=== PATIENT | male | born 1955 | race Caucasian/White ===

== ENCOUNTER 2021-10-07 03:22 | Inpatient (IN) | payer OTHER, SELFPAY ==
[2021-10-07] VITALS (19 sets, daily range): BP systolic 102–201; BP diastolic 61–109; PULSE 79–110; RESP 16–27; TEMP 34.2–37.9; O2SAT 90–97; BMI 45.7
--- NOTE | ~2021-10-07 | XR_ITS ---
EXAMINATION: XR CHEST CLINICAL INFORMATION: Postop COMPARISON: None TECHNIQUE: Frontal view of the chest was obtained. FINDINGS: ET tube present about 4 cm above the ajay. Lungs are hypoinflated. Heart size normal allowing for technique. Bibasilar atelectasis is present, left greater than right. Recommend inspiratory PA and lateral radiograph when the patient is stable. XR/XR chest 1V IMPRESSION: ET tube 4 cm above the ajay. Bibasilar atelectasis.
--- NOTE | ~2021-10-07 | CT_ITS ---
EXAMINATION: CT ABDOMEN AND PELVIS WITH CONTRAST CLINICAL INFORMATION: Abdominal pain. COMPARISON: None TECHNIQUE: Multidetector volumetric images were obtained from the superior aspect of the liver through the pubic symphysis following administration 85 mL of Omnipaque 350 intravenous contrast. Sagittal and coronal reformatted images were obtained on the technologist's workstation. Oral contrast: No This CT examination was performed using dose optimization techniques as appropriate, variously including the following: *Automated exposure control *Adjustment of mA and/or kV according to patient size (this includes techniques or standardized protocols for targeted exams where dose is matched to indication/reason for exam; i.e. extremities or head) *Use of iterative reconstruction technique DLP: 2239 mGy-cm FINDINGS: LUNG BASES: Minimal bibasilar dependent atelectasis of the lungs. Fat-containing morganii hernia is noted. LIVER, GALLBLADDER, AND BILIARY TREE: The liver is normal in size, shape, and attenuation. No focal hepatic lesion or biliary ductal dilatation is present. Partially contracted. No biliary duct dilatation. PANCREAS: Mild diffuse fatty atrophy. SPLEEN: Unremarkable. ADRENAL GLANDS: Unremarkable. KIDNEYS AND URETERS: Benign-appearing low density simple cyst of the right kidney measuring 4.8 cm in diameter requiring no additional imaging follow-up. No hydronephrosis. No perinephric inflammatory changes. No urolithiasis. BLADDER: Unremarkable. GASTROINTESTINAL TRACT: A right inguinal hernia is noted containing portions of the cecum and small bowel. Multiple proximal dilated small bowel segments measuring up to 3.5 cm in diameter identified. Mild reticulation of the right lower quadrant small bowel mesentery is noted adjacent to the hernia. Trace fluid is present within the hernia. The hernia extends into the right scrotal region. No free intraperitoneal gas is identified. ABDOMINAL WALL: As noted above, a right inguinal hernia is present containing small and large bowel segments with dilated proximal small bowel segments. LYMPH NODES: Normal. VASCULAR: Diffuse calcific atherosclerosis. PELVIC VISCERA: Unremarkable. OSSEOUS STRUCTURES: Multilevel chronic spondylosis of the lumbar spine. Chronic bilateral L5 pars interarticularis defects and grade 1 anterolisthesis of L5 on S1. CT/CT abdomen pelvis w con IMPRESSION: -Obstructing right inguinal hernia containing cecum and distal ileum associated with proximal small bowel dilatation consistent with obstruction. No free intraperitoneal gas. This critical result was discussed with Robbi Amaya MD by telephone at 10/07/2021 7:39 AM and it was ascertained that the content and urgency of the report was understood at the time of direct communication.
--- NOTE | ~2021-10-07 | US_ITS ---
EXAMINATION: US VENOUS ULTRASOUND WITH DOPPLER LOWER EXTREMITY, RIGHT CLINICAL INFORMATION: History of left DVT in 2007. Right leg edema COMPARISON: March 14, 2007 TECHNIQUE: Ultrasound of the deep veins is performed from the hip to the calf with compression sonography and color and pulse Doppler assessment. Spectral analysis with color-flow imaging is performed. FINDINGS: There is normal venous compression and respiratory variation and augmented flow. The visualized common femoral vein, superficial femoral vein, profunda femoral vein, popliteal vein, and the trifurcation region shows no evidence of deep venous thrombosis. There is no significant popliteal fossa cyst. No popliteal artery aneurysm. There is subcutaneous edema present within the calf. US/US venous duplex LE RT IMPRESSION: No acute DVT demonstrated in the right lower extremity.
[2021-10-07 04:43] LABS: Basophils Percent Auto 0.1 % (0-2); Eosinophils Percent Auto 0.1 % (0-4); Hemoglobin 12.4 g/dl (14.0-18.0); Imm Gran Abs Auto 0.01 X10*3/uL (0.00-0.03); Imm Gran Pct Auto 0.1 % (0.0-0.4); Lymphocytes Absolute Auto 0.3 X10*3/uL (1.2-4.9); MANUAL DIFF FLAG SCAN; Mean Corpuscular HGB Conc 34.4 g/dl (31.0-36.0); Mean Corpuscular Hemoglobin 32.6 pg (27.0-33.0); Mean Corpuscular Volume 94.7 fL (80.0-98.0); Mean Platelet Volume 9.1 fL (9.4-12.4); Monocytes Absolute Auto 0.2 X10*3/uL (0.1-1.2); Monocytes Percent Auto 3.2 % (2-11); Neutrophils Absolute Auto 6.6 x10*3/uL (2.0-8.3); Neutrophils Percent Auto 92.5 % (45-73); Platelet Count 195 X10*3/uL (160-400); Red Cell Distribution Width 13.2 % (11.0-16.0); SCAN SMEAR FLAG 1; White Blood Count 7.2 X10*3/uL (4.8-10.8)
[2021-10-07 04:44] LABS: Appearance Urine CLEAR; Color Urine YELLOW; Glucose Urine UA NEG (NEG); Leukocyte Esterase Urine NEG (NEG); Nitrite Urine NEG (NEG); Specific Gravity - Urine 1.025 (1.005-1.025); Urine Blood NEG (NEG); Urine Ketones NEG (NEG); Urine Protein TRACE MG/DL (NEG-TRACE)
[2021-10-07 04:47] LABS: SLIDE REVIEW VERIFIED
--- NOTE | 2021-10-07 04:51 | ECG_ITS ---
Test Reason : ABD PAIN Blood Pressure : / mmHG Vent. Rate : 108 BPM Atrial Rate : 108 BPM P-R Int : 164 ms QRS Dur : 086 ms QT Int : 338 ms P-R-T Axes : 051 -15 000 degrees QTc Int : 452 ms Sinus tachycardia Inferior infarct , age undetermined Possible Anterior infarct , age undetermined Abnormal ECG When compared with ECG of 31-MAR-2007 10:54, Vent. rate has increased BY 47 BPM Borderline criteria for Anterior infarct are now Present Inferior infarct is now Present Referred By: Kina Valenzuela Electronically Signed By:VIRGIL WADE
[2021-10-07 04:59] LABS: Alanine Aminotransferase 26 U/L (0-40); Alkaline Phosphatase 76 U/L (39-117); Anion Gap 15 (12-20); Aspartate Amino Transferase 34 U/L (5-37); Bilirubin Total 0.5 mg/dL (0.0-1.0); Blood Urea Nitrogen 19 mg/dL (9-16); Calcium 9.1 mg/dL (8.4-10.2); Carbon Dioxide 25 mmol/L (22-29); Chloride 102 mmol/L (96-108); Creatinine Clr Calc Pharmacy 124.7; Estimated Glomerular Filt Rate > 60; Glucose Random 138 mg/dL (60-115); Lipase 21 U/L (8-78); Potassium 4.4 mmol/L (3.3-5.1); Sodium 138 mmol/L (135-145); Total Protein 7.6 g/dL (6.5-8.0)
[2021-10-07 05:21] LABS: Lactic Acid 1.5 mmol/L (0.5-2.0)
--- NOTE | 2021-10-07 05:39 | ED_ITS ---
HPI - Abdominal Pain General Chief Complaint: Abdominal Pain Stated Complaint: hernia? Time Seen by Provider: 10/07/21 04:17 Source: patient Mode of arrival: ambulatory History of Present Illness HPI narrative: 66-year-old male who has a history of hypertension and presents with lower abdominal pain that started since last night and progressively worsened and has been associated with multiple episodes of nausea and vomiting but he states he is still able to pass flatus and have a bowel movement. Patient states he has a known hernia and that this has been going on for 1 year. He endorses that he was not an operative candidate due to wounds to the right lower leg. He reports chills but denies any fevers or urinary symptoms. Related Data Allergies Allergy/AdvReac Type Severity Reaction Status Date / Time ibuprofen Allergy Unknown HIVES/STOMACHE Unverified 07/24/20 17:29 UPSET Penicillins Allergy Unknown COMA Unverified 07/24/20 17:29 tramadol Allergy Unknown Verified 10/07/21 03:34 Review of Systems Review of Systems Pertinent positives and negatives as stated in HPI and 10 point review of systems is otherwise negative. Physical Exam Vital Signs: Vital Signs: Last Vital Signs Temp 97.9 F 10/07/21 04:16 Pulse 101 H 10/07/21 04:16 Resp 16 10/07/21 04:16 BP 176/102 H 10/07/21 04:16 Pulse Ox 95 10/07/21 04:16 Body Mass Index 45.7 VITAL SIGNS: Reviewed. GENERAL: Well developed, well nourished, moderate distress. HEAD: Normocephalic/atraumatic EYES: PERRLA, EOMI OROPHARYNX: no oral lesions noted, posterior pharynx clear NECK: Supple, no adenopathy LUNGS: Normal breath sounds. No adventitious sounds or accessory muscle use. SpO2<95> CARDIOVASCULAR: Regular rate and rhythm without noted murmurs ABDOMEN: Obese, soft, exquisitely tender in the lower abdomen, but due to body habitus unclear and unable to determine whether not there is an underlying hernia EXTREMITIES: Bilateral lower extremities with stigmata of venous stasis with bronzing and, patient has Unna boots in place and follows up at [facility] SKIN: Inspection of the skin reveals no rashes NEUROLOGIC: Alert and oriented x 4. Strength and sensation to light touch were grossly intact x 4. Course Course Course Narrative: 66-year-old male with history and clinical presentation suggestive of incarcerated versus strangulated hernia, diverticulitis, less likely renal colic and doubt SBO given passing flatus. Signed out to Dr Amaya: f/u CT scan and dispo accordingly. MDM - Abdominal Pain Lab Data Result diagrams: 10/07/21 04:36 10/07/21 04:36 Labs: Lab Results 10/07/21 10/07/21 10/07/21 Range/Units 04:28 04:36 04:36 WBC 7.2 (4.8-10.8) X10*3/uL RBC 3.80 L (4.60-5.80) X10*6/uL Hgb 12.4 L (14.0-18.0) g/dl Hct 36.0 L (42.0-52.0) % MCV 94.7 (80.0-98.0) fL MCH 32.6 (27.0-33.0) pg MCHC 34.4 (31.0-36.0) g/dl RDW 13.2 (11.0-16.0) % Plt Count 195 (160-400) X10*3/uL MPV 9.1 L (9.4-12.4) fL Immature Gran % (Auto) 0.1 (0.0-0.4) % Neut % (Auto) 92.5 H (45-73) % Lymph % (Auto) 4.0 L (20-40) % [place] % (Auto) 3.2 (2-11) % Eos % (Auto) 0.1 (0-4) % Baso % (Auto) 0.1 (0-2) % Lymph # (Auto) 0.3 L (1.2-4.9) X10*3/uL [place] # (Auto) 0.2 (0.1-1.2) X10*3/uL Eos # (Auto) 0.0 (0.0-0.4) X10*3/uL Baso # (Auto) 0.0 (0.0-0.2) X10*3/uL Abs Immat Gran (auto) 0.01 (0.00-0.03) X10*3/uL Absolute Neuts (auto) 6.6 (2.0-8.3) x10*3/uL Absolute Nucleated RBC 0.000 (0.0-0.012) X10*3/uL Nucleated RBC % (auto) 0.0 (0.0-0.2) /100WBC Smear Tech's Comments VERIFIED Sodium 138 (135-145) mmol/L Potassium 4.4 (3.3-5.1) mmol/L Chloride 102 (96-108) mmol/L Carbon Dioxide 25 (22-29) mmol/L Anion Gap 15 (12-20) BUN 19 H (9-16) mg/dL Creatinine 0.86 (0.5-1.4) mg/dL Estim Creat Clear Calc 124.7 Estimated GFR > 60 Random Glucose 138 H (60-115) mg/dL Lactic Acid (0.5-2.0) mmol/L Calcium 9.1 (8.4-10.2) mg/dL Total Bilirubin 0.5 (0.0-1.0) mg/dL AST 34 (5-37) U/L ALT 26 (0-40) U/L Alkaline Phosphatase 76 (39-117) U/L Total Protein 7.6 (6.5-8.0) g/dL Albumin 4.0 (3.5-5.0) g/dL Lipase 21 (8-78) U/L Urine Color YELLOW Urine Appearance CLEAR Urine pH 6.0 (5.0-8.0) Ur Specific [place] 1.025 (1.005-1.025) Urine Protein TRACE (NEG-TRACE) MG/DL Urine Glucose (UA) NEG (NEG) MG/DL Urine Ketones NEG (NEG) MG/DL Urine Blood NEG (NEG) Urine Nitrite NEG (NEG) Ur Leukocyte Esterase NEG (NEG) 10/07/21 Range/Units 05:05 WBC (4.8-10.8) X10*3/uL RBC (4.60-5.80) X10*6/uL Hgb (14.0-18.0) g/dl Hct (42.0-52.0) % MCV (80.0-98.0) fL MCH (27.0-33.0) pg MCHC (31.0-36.0) g/dl RDW (11.0-16.0) % Plt Count (160-400) X10*3/uL MPV (9.4-12.4) fL Immature Gran % (Auto) (0.0-0.4) % Neut % (Auto) (45-73) % Lymph % (Auto) (20-40) % [place] % (Auto) (2-11) % Eos % (Auto) (0-4) % Baso % (Auto) (0-2) % Lymph # (Auto) (1.2-4.9) X10*3/uL [place] # (Auto) (0.1-1.2) X10*3/uL Eos # (Auto) (0.0-0.4) X10*3/uL Baso # (Auto) (0.0-0.2) X10*3/uL Abs Immat Gran (auto) (0.00-0.03) X10*3/uL Absolute Neuts (auto) (2.0-8.3) x10*3/uL Absolute Nucleated RBC (0.0-0.012) X10*3/uL Nucleated RBC % (auto) (0.0-0.2) /100WBC Smear Tech's Comments Sodium (135-145) mmol/L Potassium (3.3-5.1) mmol/L Chloride (96-108) mmol/L Carbon Dioxide (22-29) mmol/L Anion Gap (12-20) BUN (9-16) mg/dL Creatinine (0.5-1.4) mg/dL Estim Creat Clear Calc Estimated GFR Random Glucose (60-115) mg/dL Lactic Acid 1.5 (0.5-2.0) mmol/L Calcium (8.4-10.2) mg/dL Total Bilirubin (0.0-1.0) mg/dL AST (5-37) U/L ALT (0-40) U/L Alkaline Phosphatase (39-117) U/L Total Protein (6.5-8.0) g/dL Albumin (3.5-5.0) g/dL Lipase (8-78) U/L Urine Color Urine Appearance Urine pH (5.0-8.0) Ur Specific [place] (1.005-1.025) Urine Protein (NEG-TRACE) MG/DL Urine Glucose (UA) (NEG) MG/DL Urine Ketones (NEG) MG/DL Urine Blood (NEG) Urine Nitrite (NEG) Ur Leukocyte Esterase (NEG) Critical Care Time Critical Care Time Critical Care Time: Yes Total Critical Care Time: 30 Attestation: I personally attest to this time spent taking care of the patient. Discharge Plan Discharge Clinical Impression: Abdominal pain Patient Disposition: Still a Patient [facility] Past Medical History Source: nursing notes reviewed Social History Social History Advance Directives: No Advance Directives Information Provided: Yes
[2021-10-07] MEDS: ondansetron HCL 4 MG/2 ML VIAL IVPUSH ×2 (05:40→12:17)
[2021-10-07 05:43] LABS: COVID-19 Test Negative (Negative)
--- NOTE | 2021-10-07 05:45 | PC.NURSE ---
UNABLE TO ADVANCE NG TUBE. MD AWARE AND WANTING TO WAIT ON NG TUBE. PT TO CT IN STRET[facility].
[2021-10-07] MEDS: iohexoL 350 MG/ML 100 ML INFUS..BTL IV (06:49)
[2021-10-07] MEDS: Lidocaine HCl 4 % Laryng-O-Jet 4 ML 1 APPL TOPICAL (07:14)
--- NOTE | 2021-10-07 08:06 | PC.NURSE ---
Ngt placement by this rn and DR mAaya unsuccessful due to previous septum issues and surgeries
--- NOTE | 2021-10-07 08:36 | PC.NURSE ---
GOT IN TOUCH WITH [facility] FOR METHADONE DOSE 135 MG, ALSO COMFIRMED LAST DOSAGE WAS YESTERDAY
--- NOTE | 2021-10-07 08:37 | PC.NURSE ---
METHADONE DOSING FAXED TO PHARMACY
--- NOTE | 2021-10-07 09:15 | PHA.MEDREC ---
Pharmacy Consult ? Medication Reconciliation Pharmacy has completed the medication reconciliation. Patient reports he is not taking medications has prescribed: - Breo BID is only taken once daily - Lasix BID is only taken once daily - vitamin C BID is only taken once daily Augustina Varghese, PharmD
[2021-10-07] MEDS: cefTRIAXone sodium 1 GM in 0.9 % Sodium Chloride 50 ML IV (09:47)
--- NOTE | 2021-10-07 09:54 | PM.HPGS ---
History of Present Illness History of Present Illness Date of Service: 10/07/21 Chief complaint: Incarcerated R Inguinal Hernia SBO Narrative: Jose Naidu is a 66 year old male who presented to the emergency department during the night with complaints of a known right inguinal hernia and severe lower abdominal pain, nausea and vomiting. He reported that he had been passing some flatus and that he had a bowel movement yesterday, but that the amount of stool he passed was significantly less than usual for him. He reported fever to around 100 degrees and chills. He has not had this type of pain in the past. He has a history of a right inguinal hernia, duration on clear. He reports that he has had discomfort associated with it in the past. He saw a surgeon at [facility] to discuss repair but was told that he was not a candidate for repair at the time. He has a history of chronic venous stasis and has an active stasis ulcer on the right lower extremity for which he is followed at the [facility] wound care. In the emergency department, CT scan of the abdomen and pelvis was obtained. This demonstrated a large right inguinal hernia containing the cecum and distal ileum causing small-bowel obstruction. An attempt was made in the emergency room to pass an NG tube, but this was unsuccessful. He has a history of cleft lip (palate?) Repair, details unclear. He has a history of narcotic addiction related to use of prescription medication for chronic back pain and is on a methadone maintenance program. He has a history of DVT and of PE. He is chronically anticoagulated on warfarin. Review of Systems Constitutional: Constitutional: Reports chills, Reports fever(s) and Denies headache(s) Eyes: Eyes: Reports dry eyes and Denies requires corrective lenses ENT: Denies headache(s) and Denies hearing loss Cardiovascular: Cardiovascular: Denies chest pain, Denies irregular heart rhythm, Denies palpitations and Reports dyspnea (Due to current abdominal pain) Comments: Has inhalers prescribed, denies history of asthma or COPD Respiratory: Respiratory: Denies cough, Reports dyspnea (Due to current abdominal pain) and Denies wheezing Gastrointestinal: Gastrointestinal: Reports as per HPI, Denies hematochezia and Denies nausea Genitourinary: Genitourinary: Denies dysuria, Denies nocturia and Denies urinary frequency Musculoskeletal: Musculoskeletal: Reports back pain and Reports arthralgias (Primarily knees) Integumentary/Breasts: Skin/Breast: Denies pruritus and Denies rash Neurologic: Denies headache(s) and Denies memory loss Psychiatric: Psychiatric: Denies memory loss Endocrine: Endocrine: Denies palpitations Hematologic/Lymphatic: Hematologic/Lymphatic: Denies easy bleeding and Reports other (History of DVT and PE, chronically anticoagulated on warfarin) Allergic/Immunologic: Allergic/Immunologic: Denies wheezing PMFSH Past Medical History Medical History (Updated 10/07/21 @ 11:10 by Virgie Wright MD) Chronic back pain Chronic venous stasis dermatitis of both lower extremities DVT (deep venous thrombosis) Hepatitis C Narcotic addiction Osteoarthritis Pulmonary embolism Sleep apnea Surgical History Surgical History (Updated 10/07/21 @ 10:05 by Virgie Wright MD) History of arthroscopy of both knees History of repair of cleft lip Social History Social History Advance Directives: No Advance Directives Information Provided: Yes Meds Allergies Allergy/AdvReac Type Severity Reaction Status Date / Time ibuprofen Allergy Unknown HIVES/STOMACHE Unverified 07/24/20 17:29 UPSET Penicillins Allergy Unknown COMA Unverified 07/24/20 17:29 tramadol Allergy Unknown Verified 10/07/21 03:34 Home Medications Medication Instructions Recorded Confirmed Last Taken Type ammonium lactate 12 % topical cream 1 applic TOPICAL BID PRN 10/07/21 10/07/21 10/06/21 History ascorbic acid (vitamin C) 500 mg 1 tab PO DAILY 10/07/21 10/07/21 10/06/21 History tablet (Vitamin C) fluticasone 250 mcg-salmeterol 50 1 puff INHALATION DAILY 10/07/21 10/07/21 10/06/21 History mcg/dose blistr powdr for inhalation furosemide 20 mg tablet 1 tab PO DAILY 10/07/21 10/07/21 10/06/21 History lisinopril 40 mg tablet 1 tab PO DAILY 10/07/21 10/07/21 10/06/21 History methadone 10 mg/5 mL oral solution 135 mg PO DAILY 10/07/21 10/07/21 Unknown History rosuvastatin 10 mg tablet 1 tab PO DAILY 10/07/21 10/07/21 10/06/21 History sennosides 8.6 mg-docusate sodium 2 tab PO DAILY 10/07/21 10/07/21 10/06/21 History 50 mg tablet (Stool Softener-Stimulant Laxative) vitamin B complex-folic acid ER 1 tab PO DAILY 10/07/21 10/07/21 10/06/21 History 400 mcg tablet,extended release (Complex B-100) warfarin 3 mg tablet 6 mg PO DAILY 10/07/21 10/07/21 10/06/21 History Physical Exam Vital Signs: Vital Signs: Last Vital Signs Temp 97.9 F 10/07/21 04:16 Pulse 101 H 10/07/21 04:16 Resp 16 10/07/21 04:16 BP 176/102 H 10/07/21 04:16 Pulse Ox 95 10/07/21 04:16 Body Mass Index 45.7 Const: Other: Somewhat restless and mildly ill-appearing, no acute distress General: cooperative HENMT: Head: Yes normocephalic and Yes atraumatic Neck: Neck: Yes trachea midline and Yes supple Resp: Effort & Inspection: normal respiratory effort Auscultation: wheezes (Bilateral expiratory) Cardio: Rate: regular rate Rhythm: regular rhythm GI: Other: Round, mildly tender diffusely, somewhat distended, active bowel sounds, tender non reducible right scrotal hernia that is not tense. There is a small area of patchy monilial type a rash within the lower abdominal fold, right inguinal area with no other skin change noted Rectal Exam - Male: Yes deferred Skin: Other: Generally warm and dry. Coban wrap present right lower leg, areas of hemosiderin deposition noted on visible portion right lower leg and left lower leg Extrem: Right upper extremity: normal to inspection Left upper extremity: normal to inspection Results Results Labs: Short CBC 10/07/21 Range/Units 04:36 WBC 7.2 (4.8-10.8) X10*3/uL Hgb 12.4 L (14.0-18.0) g/dl Hct 36.0 L (42.0-52.0) % Plt Count 195 (160-400) X10*3/uL BMP 10/07/21 04:36 Sodium 138 Potassium 4.4 Chloride 102 Carbon Dioxide 25 BUN 19 H Creatinine 0.86 Calcium 9.1 Liver Function 10/07/21 Range/Units 04:36 Total Bilirubin 0.5 (0.0-1.0) mg/dL AST 34 (5-37) U/L ALT 26 (0-40) U/L Alkaline Phosphatase 76 (39-117) U/L Albumin 4.0 (3.5-5.0) g/dL Urine 10/07/21 Range/Units 04:28 Urine Color YELLOW Urine Appearance CLEAR Urine pH 6.0 (5.0-8.0) Ur Specific [place] 1.025 (1.005-1.025) Urine Protein TRACE (NEG-TRACE) MG/DL Urine Glucose (UA) NEG (NEG) MG/DL Abdomen CT scan report/results: report reviewed and image reviewed CT scan - pelvis: report reviewed and image reviewed Assessment and Plan (1) Narcotic addiction: Status: Acute (2) Small bowel obstruction: Status: Acute (3) Incarcerated right inguinal hernia: Status: Acute 66-year-old male with known history of right scrotal hernia presenting with incarceration and small-bowel obstruction secondary to the right scrotal hernia. White blood count is normal and the hernia is not tense, but it is not reducible and surgical treatment will be needed. He has a history DVT and PE and is chronically anticoagulated on warfarin. INR is not yet available but it is anticipated that correction of INR will be required prior to proceeding with surgery. History of narcotic addiction, currently on methadone maintenance, which will be continued. I discussed recommendations for surgical treatment of the incarcerated right inguinal hernia with him and reviewed the technique of repair and risks including but not limited to infection, bleeding, hernia recurrence, DVT and PE, potential need for laparotomy with or without bowel resection, breakdown of bowel repair requiring further surgery, incisional hernia, chronic pain related to hernia repair. We also discussed the use of mesh, which will be required for this repair. We reviewed risks of infection and pain related to the mesh an potential need for removal in the future. He agrees to proceed with surgery. Based upon his body habitus and abdominal distension as well as the size of the hernia, I do not feel that he would be a good candidate for laparoscopic approach, but I do not perform laparoscopic repairs and have discussed this with him as well. Surgery is scheduled for later today. ADDENDUM: INR 1.4. Correction is not required. Will give lovenox preop. Quality Stroke Does the patient have a stroke diagnosis?: No VTE Prior VTE?: Yes VTE Risk Level:: Surgical - very high VTE Device Contraindication: Treatment Not Indicated (stasis ulcer RLE) VTE Drug Contraindication: N/A - Med Ordered Procedures Date of Service Date of Service: 10/07/21
[2021-10-07 10:24] LABS: INTERNATIONAL NORM RATIO 1.4 (0.9-1.1); Prothrombin Time 15.5 SEC (9.9-13.0)
--- NOTE | 2021-10-07 11:42 | PC.NURSE ---
call to pharmacy to verify vancomycin dose prior to hanging medication. Spoke to Amando in pharmacy and verified weight of 144kg and stated Vancomycin 1500mg to be given.
[2021-10-07] MEDS: vancomycin HCL 1,500 MG in 0.9 % Sodium Chloride 500 ML 333.33 MG IV (11:44)
[2021-10-07] MEDS: Famotidine/PF 20 MG/2 ML VIAL IVPUSH (12:18)
--- NOTE | 2021-10-07 12:26 | PC.NURSE ---
pt started violently vomiting. anes made aware and medicated with zofran and pepcid. suctioned as needed. lots of mucus nasally also. cleaned up and repositioned. vomiting subsided, resting comfortably.
[2021-10-07] MEDS: Lactated Ringers 1,000 ML 100 ML IVCONT (12:52)
[2021-10-07] MEDS: Albuterol Sulfate (0.083%) 2.5 MG/3 ML VIAL.NEB INHALE (12:59)
[2021-10-07] MEDS: vancomycin HCL 500 MG in 0.9 % Sodium Chloride 100 ML 110 MG IV (13:15)
--- NOTE | 2021-10-07 13:29 | HO.ANESPROP2 ---
HPI - Anesthesia Eval Consult details Narrative: 66 M for incarcerated hernia. Currently patient has productive cough ,with copious amount thick mucous , requiring 4 liter of oxygen to maintain saturation above 92 % . This Oxygen requirement is new . Patient will require imaging of the chest , post procedure . patient is aferile , no WBC . patient is a poor historian . Discussed the case with surgeon as need to proceed urgently to the OR . The surgeon has spoken with the ICU team for ICU transfer post op . Patient with Morbid obesity , KEILA , COPD and possible CHF . Patient also has abnormal baseline EKG . Patient is also on methadone secondary to narcotic dependence PMF Active Problems Active Problems: All Active Problems (Updated 10/07/21 @ 11:10 by Virgie Wright MD) Narcotic addiction (Acute) Small bowel obstruction (Acute) Incarcerated right inguinal hernia (Acute) Abdominal pain (Acute) COPD CHF Lower extremity wounds Past Medical History Medical History (Updated 10/07/21 @ 11:10 by Virgie Wright MD) Chronic back pain Chronic venous stasis dermatitis of both lower extremities DVT (deep venous thrombosis) Hepatitis C Narcotic addiction Osteoarthritis Pulmonary embolism Sleep apnea Family History Family history of problems with anesthesia: No Surgical History Surgical History (Updated 10/07/21 @ 10:05 by Virgie Wright MD) History of arthroscopy of both knees History of repair of cleft lip History of Problems with Anesthesia: No Social History Social History Patient Tobacco Use Status: Current everyday Tobacco user Tobacco use type: Cigarette Cigarettes Per Day: 7 Years Smoked: 30 Meds Allergies Allergy/AdvReac Type Severity Reaction Status Date / Time ibuprofen Allergy Unknown HIVES/STOMACHE Verified 10/07/21 11:17 UPSET Penicillins Allergy Unknown COMA Verified 10/07/21 11:17 tramadol Allergy Unknown Verified 10/07/21 11:17 Active Medications: Current Medications Albuterol Sulfate (Albuterol Sulfate (0.083%) 2.5 Mg/3 Ml Vial.Neb) 2.5 mg INHALE ONCE PRN PRN Reason: Shortness of Breath/Wheezing Last Admin: 10/07/21 12:59 Dose: 2.5 mg Documented by: Atorvastatin Calcium (Atorvastatin Calcium 40 Mg Tablet) 40 mg PO BEDTIME VARGAS Enoxaparin Sodium (Enoxaparin Sodium 40 Mg/0.4 Ml Syringe) 40 mg SUBCUT DAILY [facility] Fluticasone/Vilanterol (Fluticasone/Vilanterol 100/25 Blst.W.Dev) 1 puff INHALE RDAILY [facility] Furosemide (Furosemide 20 Mg Tablet) 20 mg PO DAILY [facility]; Protocol Lactated Ringer's (Lr) 1,000 mls @ 80 mls/hr IVCONT .[id number] [facility]ARGAS Lactated Ringer's (Lr) 1,000 mls @ 100 mls/hr IVCONT .Q10H [facility]ARGAS Last Admin: 10/07/21 12:52 Dose: 100 mls/hr Documented by: Lactic Acid (Ammonium Lactate 12 % Cream 140 Gm Tube) 1 appl TOPICAL BID PRN; Protocol PRN Reason: Rash Lisinopril (Lisinopril 40 Mg Tablet) 40 mg PO DAILY [facility]; Protocol Methadone HCl (Methadone Hcl 20 Mg/2 Ml Oral.Conc) 135 mg PO DAILY [facility] Metoclopramide HCl (Metoclopramide Hcl 10 Mg/2 Ml Vial) 10 mg IVPUSH PREOP ONE Stop: 10/08/21 12:03 Morphine Sulfate (Morphine Sulfate 4 Mg/Ml Cartridge) 4 mg IVPUSH Q3H PRN; Protocol PRN Reason: Pain, severe Multivitamins/Vitamin C (Multivitamin Tablet) 1 tab PO DAILY [facility] Senna/Docusate Sodium (Sennosides/Docusate Sodium Tablet) 2 tab PO DAILY [facility] Home Medications Medication Instructions Recorded Confirmed Last Taken Type ammonium lactate 12 % topical cream 1 applic TOPICAL BID PRN 10/07/21 10/07/21 10/06/21 History ascorbic acid (vitamin C) 500 mg 1 tab PO DAILY 10/07/21 10/07/21 10/06/21 History tablet (Vitamin C) fluticasone 250 mcg-salmeterol 50 1 puff INHALATION DAILY 10/07/21 10/07/21 10/06/21 History mcg/dose blistr powdr for inhalation furosemide 20 mg tablet 1 tab PO DAILY 10/07/21 10/07/21 10/06/21 History lisinopril 40 mg tablet 1 tab PO DAILY 10/07/21 10/07/21 10/06/21 History methadone 10 mg/5 mL oral solution 135 mg PO DAILY 10/07/21 10/07/21 Unknown History rosuvastatin 10 mg tablet 1 tab PO DAILY 10/07/21 10/07/21 10/06/21 History sennosides 8.6 mg-docusate sodium 2 tab PO DAILY 10/07/21 10/07/21 10/06/21 History 50 mg tablet (Stool Softener-Stimulant Laxative) vitamin B complex-folic acid ER 1 tab PO DAILY 10/07/21 10/07/21 10/06/21 History 400 mcg tablet,extended release (Complex B-100) warfarin 3 mg tablet 6 mg PO DAILY 10/07/21 10/07/21 10/06/21 10:00 History Exam Exam Date and Time: October 07, 2021 1329 Height,Weight and Vital Signs: Height 5 ft 10 in Weight 144.521 kg Last Vital Signs Temp 97.9 F 10/07/21 11:18 Pulse 108 H 10/07/21 13:00 Resp 16 10/07/21 11:18 BP 168/98 H 10/07/21 11:18 Pulse Ox 96 10/07/21 11:18 Pertinent Lab Results Pertinent Lab Results: Laboratory Tests 10/07/21 10/07/21 10/07/21 04:28 04:36 04:36 WBC 7.2 RBC 3.80 L Hgb 12.4 L Hct 36.0 L MCV 94.7 MCH 32.6 MCHC 34.4 RDW 13.2 Plt Count 195 MPV 9.1 L Immature Gran % (Auto) 0.1 Neut % (Auto) 92.5 H Lymph % (Auto) 4.0 L [place] % (Auto) 3.2 Eos % (Auto) 0.1 Baso % (Auto) 0.1 Lymph # (Auto) 0.3 L [place] # (Auto) 0.2 Eos # (Auto) 0.0 Baso # (Auto) 0.0 Abs Immat Gran (auto) 0.01 Absolute Neuts (auto) 6.6 Absolute Nucleated RBC 0.000 Nucleated RBC % (auto) 0.0 Smear Tech's Comments VERIFIED PT INR Sodium 138 Potassium 4.4 Chloride 102 Carbon Dioxide 25 Anion Gap 15 BUN 19 H Creatinine 0.86 Estim Creat Clear Calc 124.7 Estimated GFR > 60 Random Glucose 138 H Lactic Acid Calcium 9.1 Total Bilirubin 0.5 AST 34 ALT 26 Alkaline Phosphatase 76 Total Protein 7.6 Albumin 4.0 Lipase 21 Urine Color YELLOW Urine Appearance CLEAR Urine pH 6.0 Ur Specific [place] 1.025 Urine Protein TRACE Urine Glucose (UA) NEG Urine Ketones NEG Urine Blood NEG Urine Nitrite NEG Ur Leukocyte Esterase NEG COVID-19 (SHELLI) [employer] Blood Type Antibody Screen 10/07/21 10/07/21 10/07/21 05:05 05:05 10:05 WBC RBC Hgb Hct MCV MCH MCHC RDW Plt Count MPV Immature Gran % (Auto) Neut % (Auto) Lymph % (Auto) [place] % (Auto) Eos % (Auto) Baso % (Auto) Lymph # (Auto) [place] # (Auto) Eos # (Auto) Baso # (Auto) Abs Immat Gran (auto) Absolute Neuts (auto) Absolute Nucleated RBC Nucleated RBC % (auto) Smear Tech's Comments PT 15.5 H INR 1.4 H Sodium Potassium Chloride Carbon Dioxide Anion Gap BUN Creatinine Estim Creat Clear Calc Estimated GFR Random Glucose Lactic Acid 1.5 Calcium Total Bilirubin AST ALT Alkaline Phosphatase Total Protein Albumin Lipase Urine Color Urine Appearance Urine pH Ur Specific [place] Urine Protein Urine Glucose (UA) Urine Ketones Urine Blood Urine Nitrite Ur Leukocyte Esterase COVID-19 (SHELLI) Negative COVID-[employer] See Note Blood Type Antibody Screen 10/07/21 10:05 WBC RBC Hgb Hct MCV MCH MCHC RDW Plt Count MPV Immature Gran % (Auto) Neut % (Auto) Lymph % (Auto) [place] % (Auto) Eos % (Auto) Baso % (Auto) Lymph # (Auto) [place] # (Auto) Eos # (Auto) Baso # (Auto) Abs Immat Gran (auto) Absolute Neuts (auto) Absolute Nucleated RBC Nucleated RBC % (auto) Smear Tech's Comments PT INR Sodium Potassium Chloride Carbon Dioxide Anion Gap BUN Creatinine Estim Creat Clear Calc Estimated GFR Random Glucose Lactic Acid Calcium Total Bilirubin AST ALT Alkaline Phosphatase Total Protein Albumin Lipase Urine Color Urine Appearance Urine pH Ur Specific [place] Urine Protein Urine Glucose (UA) Urine Ketones Urine Blood Urine Nitrite Ur Leukocyte Esterase COVID-19 (SHELLI) [employer] Blood Type A Positive Antibody Screen NEGATIVE Airway Mallampati Class: IV TM Dist: >3cm Neck ROM: Full Denture: Upper and Lower Loose/Missing/Broken Teeth: Yes (Tacycardiac ) Heart: tacycardiac Lungs: wheezing , improved after Duoneb treatment Assessment and Plan Assessment Anesthesia Assessment: Anesthesia Plan Discussed and Chart Reviewed Final Anesthetic Review Family History of Problems with Anesthesia: No History of Problems with Anesthesia: No NPO: Yes ASA Class: IV and Emergency Final Preanesthetic Review: Meds/Allgs Chart Reviewed, Consent Obtained/Reviewed and Anes Risks/Benef Reviewed Patient Risk: High Procedure Risk: High Anesthetic Plan Anesthetic Plan: GA Disposition: Inp. Admit - ICU (Post op mechanical ventilation and ICU tranfer discussed with the patient . )
--- NOTE | 2021-10-07 13:32 | MHC.SHP ---
Pre-Procedural Eval Section A Date of Service: 10/07/21 The patient is an INPATIENT: Yes The History & Physical has been completed within 30 days and I have reviewed it.: Yes Section B Chief Complaint: Incarcerated R Inguinal Hernia SBO Allergies: Allergies Allergy/AdvReac Type Severity Reaction Status Date / Time ibuprofen Allergy Unknown HIVES/STOMACHE Verified 10/07/21 11:17 UPSET Penicillins Allergy Unknown COMA Verified 10/07/21 11:17 tramadol Allergy Unknown Verified 10/07/21 11:17 Plan Diagnosis/Plan: Unchanged I have reviewed the history and physical and performed a pertinent physical examination on my patient. No changes have occurred unless specified.
[2021-10-07] MEDS: Metoclopramide HCl 10 MG/2 ML VIAL IVPUSH (13:52)
[2021-10-07] MEDS: Albuterol/Iprat 2.5/0.5MG 3 ML AMPUL.NEB INHALE ×2 (13:56→23:41)
--- NOTE | 2021-10-07 14:25 | PC.NURSE ---
Additional Vancomycin 500mg dose IV (for total dose of 2grams IV) hung at 1315 in preop.
--- NOTE | 2021-10-07 17:38 | W.PM.OPN ---
Operative Note Operative Note Date of Service: 10/07/21 Narrative: Preoperative diagnosis: Incarcerated right inguinal hernia, small-bowel obstruction Postoperative diagnosis: Same Creative Services Coordinator: Elizabeth Ca PA-C Anesthesia: general endotracheal Estimated blood loss: 30 cc Specimen: None Immediate complications: None Indications: The patient is a 66-year-old male followed known history of right scrotal hernia who presented with increasing abdominal pain, scrotal pain, nausea and vomiting. CT scan revealed that the right scrotal hernia contained the cecum and portion of right colon as well as distal ileum causing small-bowel obstruction. Procedure in detail: With the patient in the supine position following induction of adequate general anesthesia, time-out procedure was performed. The abdomen and scrotum were prepped with ChloraPrep and were draped sterilely. He received 2 g of vancomycin for antibiotic prophylaxis. Skin and subcutaneous tissues in the area for incision were infiltrated with local anesthetic. A right inguinal incision was made about 5 cm medial to and parallel with the groin crease and was carried into the subcutaneous tissues and down to the level of the external oblique fascia. The external ring was identified. The soft tissues below the external oblique in the region of the external ring were infiltrated with local anesthetic and incision was made through the external oblique in line with its fibers through the external ring. The hernia sac was identified and was partially dissected free moving down into the scrotum. Because of the amount of incarcerated tissue, visualization was difficult. The anterior aspect of the hernia sac was incised and small bowel content was exteriorized. The incision in the sac was then carried caudad into the scrotum. The sac was dissected free from the scrotal tissue and brought out through the incision. The hernia was found to contain distal ileum, portion of right colon and the cecum. The bowel appeared healthy. The cecum was densely adherent to the hernia sac. Tissues are indurated and thickened and a clear plane of dissection could not be identified. Further dissection of the hernia sac was carried out to free it circumferentially to the level of the external ring an attempt was made to have reduce the bowel and ultimately the hernia sac. It was not possible to do this. The external ring was opened by incising through the external ring anteriorly moving cephalad. following this, a 2nd attempt was made to reduce the tissues but was not successful. Decision was made at that point to divide the hernia sac circumferentially leaving the portion that was densely adherent to the cecum in place. The position of the right testis was confirmed within the right hemiscrotum and cord structures were avoided. Once the hernia sac was dissected free circumferentially, the wound was copiously irrigated with saline solution. The opening in the external ring was extended further cephalad and the incarcerated tissues were reduced. The opening into the peritoneal cavity was 3.5 cm in diameter. An attempt was made to close peritoneum, but tissues were fragile cephalad and good closure could not be obtained despite having preserved a portion of the hernia sac. The wound was again copiously irrigated with saline solution. An 8 cm Ventralex mesh was chosen and was oriented with the non adherent side against the peritoneal cavity. It was sutured in place with U sutures through the oblique muscle in 4 positions circumferentially to the ring on the mesh using 2 0 surgery pro. Sutures were held initially. The mesh was checked to ensure that it was snug against the anterior abdominal wall. The sutures were then securely tied. The wound was irrigated with saline solution. Available peritoneum was closed over the surface of the mesh. The wound was again irrigated with saline Solution. The internal oblique was closed in a running fashion using 2 0 Polysorb. External oblique was reapproximated using a running suture of 2 0 Polysorb. A 7 mm flat drain that was placed did in to the right hemiscrotum and was brought out through the subcutaneous tissues of the incision. The incision was then closed with subcutaneous sutures and of interrupted 3-0 Polysorb and harish. A dry sterile dressing was applied. Sponge and instrument counts were correct. He remained stable throughout the procedure. Patient remained intubated Postoperatively and was transferred to the ICU for further care.
--- NOTE | 2021-10-07 18:07 | P.CONCC_ITS ---
History of Present Illness Data of Consult Service Date: 10/07/21 Requesting physician: Virgie Wright Primary Care Provider: Unknown Physician HPI Reason for consult: Obesity/hypoventilation with possible of obstructive sleep apnea 66-year-old morbidly obese individual with incarcerated inguinal hernia and large amount of bowel content in the scrotum will came in with acute abdominal pain and good clearly has incarceration with bowel obstruction and had urgent laparotomy done and the trouble fitting the entire bowel back into the abdomen so needed a mesh repair of the abdominal wall but there was no evidence of ischemically compromised bowel Preoperatively he was noted to be wheezing with productive cough and there were airway concerns so he came here intubated and because he has a history of chronic opiate dependence currently on a methadone program high-dose we sedated with combination of propofol and fentanyl with the intent of stopping both in the morning assessing airway adequacy and then extubating but treating overnight with bronchodilators and then hopefully converting him to his oral methadone in the morning as he should have some early bowel recovery Bedside echo shows normal LV and RV size structure and function with no primary valve or pericardial disease EKG just shows sinus tachycardia Review of Systems 2 Review of Systems: Yes unobtainable due to endotracheal tube PMFSH Past Medical History Medical History (Updated 10/08/21 @ 13:53 by Ginger Arce MD) Chronic back pain Chronic venous stasis dermatitis of both lower extremities DVT (deep venous thrombosis) Hepatitis C Hyperlipidemia Hypertensive cardiovascular disease Morbid obesity due to excess calories Narcotic addiction Obesity hypoventilation syndrome Osteoarthritis Pulmonary embolism Sleep apnea Surgical History Surgical History (Updated 10/07/21 @ 10:05 by Virgie Wright MD) History of arthroscopy of both knees History of repair of cleft lip Social History Social History Patient Tobacco Use Status: Current everyday Tobacco user Tobacco use type: Cigarette Cigarettes Per Day: 7 Years Smoked: 30 service: No Current occupational status: disabled Meds Allergies Allergy/AdvReac Type Severity Reaction Status Date / Time ibuprofen Allergy Unknown HIVES/STOMACHE Verified 10/07/21 11:17 UPSET Penicillins Allergy Unknown COMA Verified 10/07/21 11:17 tramadol Allergy Unknown Verified 10/07/21 11:17 Active Medications: Current Medications Atorvastatin Calcium (Atorvastatin Calcium 40 Mg Tablet) 40 mg PO BEDTIME [facility] Enoxaparin Sodium (Enoxaparin Sodium 40 Mg/0.4 Ml Syringe) 40 mg SUBCUT DAILY [facility] Fluticasone/Vilanterol (Fluticasone/Vilanterol 100/25 Blst.W.Dev) 1 puff INHALE RDAILY [facility] Furosemide (Furosemide 20 Mg Tablet) 20 mg PO DAILY [facility]; Protocol Lactated Ringer's (Lr) 1,000 mls @ 80 mls/hr IVCONT .[id number] VARGAS Last Admin: 10/07/21 17:30 Dose: Not Given Documented by: Lactic Acid (Ammonium Lactate 12 % Cream 140 Gm Tube) 1 appl TOPICAL BID PRN; Protocol PRN Reason: Rash Lisinopril (Lisinopril 40 Mg Tablet) 40 mg PO DAILY [facility]; Protocol Last Admin: 10/07/21 17:29 Dose: Not Given Documented by: Methadone HCl (Methadone Hcl 20 Mg/2 Ml Oral.Conc) 135 mg PO DAILY [facility] Morphine Sulfate (Morphine Sulfate 4 Mg/Ml Cartridge) 4 mg IVPUSH Q2H PRN; Protocol PRN Reason: Pain, Severe (Pain Scale 7-10) Multivitamins/Vitamin C (Multivitamin Tablet) 1 tab PO DAILY [facility] Senna/Docusate Sodium (Sennosides/Docusate Sodium Tablet) 2 tab PO DAILY [facility] Home Medications Medication Instructions Recorded Confirmed Last Taken Type ammonium lactate 12 % topical cream 1 applic TOPICAL BID PRN 10/07/21 10/07/21 10/06/21 History ascorbic acid (vitamin C) 500 mg 1 tab PO DAILY 10/07/21 10/07/21 10/06/21 History tablet (Vitamin C) fluticasone 250 mcg-salmeterol 50 1 puff INHALATION DAILY 10/07/21 10/07/21 10/06/21 History mcg/dose blistr powdr for inhalation furosemide 20 mg tablet 1 tab PO DAILY 10/07/21 10/07/21 10/06/21 History lisinopril 40 mg tablet 1 tab PO DAILY 10/07/21 10/07/21 10/06/21 History methadone 10 mg/5 mL oral solution 135 mg PO DAILY 10/07/21 10/07/21 Unknown History rosuvastatin 10 mg tablet 1 tab PO DAILY 10/07/21 10/07/21 10/06/21 History sennosides 8.6 mg-docusate sodium 2 tab PO DAILY 10/07/21 10/07/21 10/06/21 History 50 mg tablet (Stool Softener-Stimulant Laxative) vitamin B complex-folic acid ER 1 tab PO DAILY 10/07/21 10/07/21 10/06/21 History 400 mcg tablet,extended release (Complex B-100) warfarin 3 mg tablet 6 mg PO DAILY 10/07/21 10/07/21 10/06/21 10:00 History Physical Exam Vital Signs: Vital Signs: Last Vital Signs Temp 97.9 F 10/07/21 11:18 Pulse 108 H 10/07/21 13:57 Resp 16 10/07/21 11:18 BP 168/98 H 10/07/21 11:18 Pulse Ox 96 10/07/21 11:18 BMI result Body Mass Index 45.7 He was acutely hypertensive which improved with sedation Bilateral stasis dermatitis with a venous ulcer pressure ulcer on the posterior aspect of the right ankle no apparent cellulitis Sedated and intubated Chest with with the just a minimal diaphragmatic effort and wheeze Abdomen of course distended postoperatively Results Labs CBC & Chem 7: 10/08/21 05:22 10/08/21 05:22 Labs: Short CBC 10/07/21 Range/Units 04:36 WBC 7.2 (4.8-10.8) X10*3/uL Hgb 12.4 L (14.0-18.0) g/dl Hct 36.0 L (42.0-52.0) % Plt Count 195 (160-400) X10*3/uL BMP 10/07/21 04:36 Sodium 138 Potassium 4.4 Chloride 102 Carbon Dioxide 25 BUN 19 H Creatinine 0.86 Calcium 9.1 Liver Function 10/07/21 Range/Units 04:36 Total Bilirubin 0.5 (0.0-1.0) mg/dL AST 34 (5-37) U/L ALT 26 (0-40) U/L Alkaline Phosphatase 76 (39-117) U/L Albumin 4.0 (3.5-5.0) g/dL Urine 10/07/21 Range/Units 04:28 Urine Color YELLOW Urine Appearance CLEAR Urine pH 6.0 (5.0-8.0) Ur Specific [place] 1.025 (1.005-1.025) Urine Protein TRACE (NEG-TRACE) MG/DL Urine Glucose (UA) NEG (NEG) MG/DL Assessment and Plan (1) Narcotic addiction: Status: Acute (2) Small bowel obstruction: Status: Acute (3) Incarcerated right inguinal hernia: Status: Acute (4) Abdominal pain: Qualifiers: Abdominal location: lower abdomen, unspecified Qualified Code(s): R10.30 - Lower abdominal pain, unspecified Status: Acute (5) Morbid obesity due to excess calories: Status: Acute (6) Obesity hypoventilation syndrome: Status: Acute (7) Asthma: Status: Acute (8) Hypertensive cardiovascular disease: Status: Acute (9) Hyperlipidemia: Status: Acute Sedate with fentanyl and propofol and maintain intubation overnight with inhaled bronchodilator therapy and then assess airway adequacy in the morning wean from both propofol and fentanyl and then once extubated on to oral methadone to prevent withdrawal issues but continue his respiratory treatments
[2021-10-07] MEDS: propofoL 200 MG/20 ML VIAL 30 MG IVPUSH (18:22)
[2021-10-07] MEDS: fentaNYL citrate/NS 1,000 MCG/100 ML PLAST..BAG 5 MCG IVCONT (18:23)
[2021-10-07] MEDS: propofoL 1,000 MG/100 ML VIAL 26.01 MG IVCONT (18:23)
[2021-10-07 18:51] LABS: ABG Base Excess 3.8 mmol/L; ABG HCO3 27 mmol/L (22-26); ABG pCO2 37 mmHg (32-45); ABG pCO2 TC 36 mmHg (32-45); ABG pH 7.47 (7.35-7.45); ABG pH TC 7.48 (7.35-7.45); ABG pO2 63 mmHg (83-108); ABG pO2 TC 60 (83-108)
[2021-10-07] MEDS: propofoL 1,000 MG/100 ML VIAL 34.69 MG IVCONT (20:24)
[2021-10-07] MEDS: propofoL 1,000 MG/100 ML VIAL 43.36 MG IVCONT (22:33)
[2021-10-07 23:23] LABS: ABG Refer to POC result
[2021-10-08] VITALS (19 sets, daily range): BP systolic 94–156; BP diastolic 55–99; PULSE 88–119; RESP 15–31; TEMP 36.3–38.2; O2SAT 88–94; BMI 49.9
[2021-10-08] MEDS: fentaNYL citrate/NS 1,000 MCG/100 ML PLAST..BAG 15 MCG IVCONT ×2 (00:11→06:12)
[2021-10-08] MEDS: propofoL 1,000 MG/100 ML VIAL 43.36 MG IVCONT ×4 (00:13→06:12)
[2021-10-08] MEDS: Lactated Ringers 1,000 ML 80 ML IVCONT (04:38)
[2021-10-08 05:37] LABS: VBG Base Excess 7.7 mmol/L; VBG HCO3 29 mmol/L (22-26); VBG pCO2 31 mmHg; VBG pH 7.57 (7.32-7.43); VBG pO2 84 mmHg
[2021-10-08 05:44] LABS: Hematocrit 32.2 % (42.0-52.0); Hemoglobin 11.1 g/dl (14.0-18.0); Mean Corpuscular HGB Conc 34.5 g/dl (31.0-36.0); Mean Corpuscular Hemoglobin 32.6 pg (27.0-33.0); Mean Corpuscular Volume 94.4 fL (80.0-98.0); Mean Platelet Volume 9.2 fL (9.4-12.4); Platelet Count 192 X10*3/uL (160-400); Red Blood Count 3.41 X10*6/uL (4.60-5.80); Red Cell Distribution Width 13.5 % (11.0-16.0); White Blood Count 5.8 X10*3/uL (4.8-10.8)
[2021-10-08 06:04] LABS: Anion Gap 11 (12-20); Blood Urea Nitrogen 13 mg/dL (9-16); Calcium 8.1 mg/dL (8.4-10.2); Carbon Dioxide 27 mmol/L (22-29); Chloride 104 mmol/L (96-108); Creatinine Clr Calc Pharmacy 126.1; Estimated Glomerular Filt Rate > 60; Glucose Random 121 mg/dL (60-115); Magnesium 1.7 mg/dL (1.6-2.6); Phosphorus 2.1 mg/dL (2.7-4.5); Potassium 4.1 mmol/L (3.3-5.1); Sodium 138 mmol/L (135-145)
[2021-10-08 06:11] LABS: Venous Blood Gas Refer to POC result
--- NOTE | 2021-10-08 07:24 | PM.PNGS ---
Subjective Subjective Date of Service: 10/08/21 Interval history: Patient sedated and on vent. Pod 1 status post repair of incarcerated right inguinal hernia with mesh. Physical Exam Vital Signs: Vital Signs: Last Vital Signs Temp 100.8 F H 10/08/21 05:50 Pulse 97 10/08/21 07:00 Resp 20 10/08/21 07:00 BP 104/59 L 10/08/21 07:00 Pulse Ox 92 10/08/21 07:00 BMI result Body Mass Index 49.9 Const: Other: Sedated, nonresponsive to voice Nutritional Appearance: obese HENMT: Head: Yes normocephalic Resp: Other: Breathing on vent, no respiratory distress, O2 sat 91% GI: Other: Obese, distended, tympanitic to percussion, incision in the right groin is clean and intact. SANDRA drain with small amount of serosanguineous discharge. No erythema. Skin: Other: Warm and dry, no rash, normal color Objective Data Active Medications Albuterol/Ipratropium (Albuterol/Iprat 2.5/0.5mg 3 Ml Ampul.Neb) 3 ml INHALE RQ6H [facility] Last Admin: 10/07/21 23:41 Dose: 3 ml Documented by: MYRON Atorvastatin Calcium (Atorvastatin Calcium 40 Mg Tablet) 40 mg PO BEDTIME [facility] Enoxaparin Sodium (Enoxaparin Sodium 40 Mg/0.4 Ml Syringe) 40 mg SUBCUT DAILY [facility] Last Admin: 10/07/21 18:14 Dose: Not Given Documented by: CHRISTINA Non-Admin Reason: not given in or Fluticasone/Vilanterol (Fluticasone/Vilanterol 100/25 Blst.W.Dev) 1 puff INHALE RDAILY [facility] Furosemide (Furosemide 20 Mg Tablet) 20 mg PO DAILY [facility]; Protocol Lactated Ringer's (Lr) 1,000 mls @ 80 mls/hr IVCONT .[id number] [facility] Last Admin: 10/08/21 04:38 Dose: 80 mls/hr Documented by: CAROLE Propofol (Diprivan) 1,000 mg in 100 mls @ 0 mls/hr IVCONT .Q0M [facility]; Protocol Last Admin: 10/08/21 06:12 Dose: 50 mcg/kg/min, 43.36 mls/hr Documented by: CAROLE Fentanyl (Sublimaze/Ns) 1,000 mcg in 100 mls @ 0 mls/hr IVCONT .Q0M [facility]; Protocol Last Admin: 10/08/21 06:12 Dose: 150 mcg/hr, 15 mls/hr Documented by: CAROLE Lactic Acid (Ammonium Lactate 12 % Cream 140 Gm Tube) 1 appl TOPICAL BID PRN; Protocol PRN Reason: Rash Lisinopril (Lisinopril 40 Mg Tablet) 40 mg PO DAILY [facility]; Protocol Last Admin: 10/07/21 17:29 Dose: Not Given Documented by: CHRISTINA Non-Admin Reason: not administered Multivitamins/Vitamin C (Multivitamin Tablet) 1 tab PO DAILY [facility] Naloxone HCl (Naloxone Hcl 0.4 Mg/Ml Vial) 0.2 mg IVPUSH Q2M PRN PRN Reason: Excessive sedation or RR < 8 Senna/Docusate Sodium (Sennosides/Docusate Sodium Tablet) 2 tab PO DAILY [facility] Labs CBC & Chem 7: 10/08/21 05:22 10/08/21 05:22 Labs: Laboratory Results - last 24 hr 10/07/21 10/07/21 10/07/21 10:05 10:05 18:45 MCV MCH MCHC RDW Plt Count MPV Absolute Nucleated RBC Nucleated RBC % (auto) PT 15.5 H INR 1.4 H O2 Saturation 90.0 ABG pH at Pt Temp 7.47 H ABG pH (Temp Correct) 7.48 H ABG pCO2 at Pt Temp 37 ABG pCO2 (Temp Corrct 36 ABG pO2 at Pt Temp 63 L ABG pO2 (Temp Correct 60 L ABG HCO3 27 H ABG Base Excess (Actual) 3.8 VBG pH VBG pCO2 VBG pO2 VBG HCO3 VBG O2 Saturation VBG Base Excess Anion Gap Estim Creat Clear Calc Estimated GFR Random Glucose Calcium Phosphorus Magnesium Blood Type A Positive Antibody Screen NEGATIVE 10/08/21 10/08/21 10/08/21 05:22 05:22 05:29 MCV 94.4 MCH 32.6 MCHC 34.5 RDW 13.5 Plt Count 192 MPV 9.2 L Absolute Nucleated RBC 0.000 Nucleated RBC % (auto) 0.0 PT INR O2 Saturation ABG pH at Pt Temp ABG pH (Temp Correct) ABG pCO2 at Pt Temp ABG pCO2 (Temp Corrct ABG pO2 at Pt Temp ABG pO2 (Temp Correct ABG HCO3 ABG Base Excess (Actual) VBG pH 7.57 H VBG pCO2 31 VBG pO2 84 VBG HCO3 29 H VBG O2 Saturation 96.0 VBG Base Excess 7.7 Anion Gap 11 L Estim Creat Clear Calc 126.1 Estimated GFR > 60 Random Glucose 121 H Calcium 8.1 L D Phosphorus 2.1 L Magnesium 1.7 Blood Type Antibody Screen Microbiology Microbiology Results: Microbiology 10/07/21 05:05 Blood Culture - Preliminary Blood - Venous No growth after 24 hours. 10/07/21 05:05 Blood Culture - Preliminary Blood - Venous No growth after 24 hours. Procedures Date of Service Date of Service: 10/08/21 Progress Note: A&P Assessment and plan (1) Small bowel obstruction: Status: Acute (2) Incarcerated right inguinal hernia: Status: Acute Assessment and Plan: Pod 1 status post repair of right inguinal hernia, scrotal hernia with large Ventralex mesh. SANDRA in place with small amount of serosanguineous discharge. Patient is currently on the vent. Vent management per ICU team. Fall Risk Details Current Medications: Current Medications Albuterol/Ipratropium (Albuterol/Iprat 2.5/0.5mg 3 Ml Ampul.Neb) 3 ml INHALE RQ6H [facility] Last Admin: 10/07/21 23:41 Dose: 3 ml Documented by: Atorvastatin Calcium (Atorvastatin Calcium 40 Mg Tablet) 40 mg PO BEDTIME [facility] Enoxaparin Sodium (Enoxaparin Sodium 40 Mg/0.4 Ml Syringe) 40 mg SUBCUT DAILY [facility] Last Admin: 10/07/21 18:14 Dose: Not Given Documented by: Fluticasone/Vilanterol (Fluticasone/Vilanterol 100/25 Blst.W.Dev) 1 puff INHALE RDAILY [facility] Furosemide (Furosemide 20 Mg Tablet) 20 mg PO DAILY [facility]; Protocol Lactated Ringer's (Lr) 1,000 mls @ 80 mls/hr IVCONT .[id number] [facility] Last Admin: 10/08/21 04:38 Dose: 80 mls/hr Documented by: Propofol (Diprivan) 1,000 mg in 100 mls @ 0 mls/hr IVCONT .Q0M [facility]; Protocol Last Admin: 10/08/21 06:12 Dose: 50 mcg/kg/min, 43.36 mls/hr Documented by: Fentanyl (Sublimaze/Ns) 1,000 mcg in 100 mls @ 0 mls/hr IVCONT .Q0M [facility]; Protocol Last Admin: 10/08/21 06:12 Dose: 150 mcg/hr, 15 mls/hr Documented by: Lactic Acid (Ammonium Lactate 12 % Cream 140 Gm Tube) 1 appl TOPICAL BID PRN; Protocol PRN Reason: Rash Lisinopril (Lisinopril 40 Mg Tablet) 40 mg PO DAILY [facility]; Protocol Last Admin: 10/07/21 17:29 Dose: Not Given Documented by: Multivitamins/Vitamin C (Multivitamin Tablet) 1 tab PO DAILY [facility] Naloxone HCl (Naloxone Hcl 0.4 Mg/Ml Vial) 0.2 mg IVPUSH Q2M PRN PRN Reason: Excessive sedation or RR < 8 Senna/Docusate Sodium (Sennosides/Docusate Sodium Tablet) 2 tab PO DAILY [facility] Time Spent With Patient Time: Total time spent is greater than 50% in coordination of care (as documented) at patient's floor/unit and/or counseling patient: Time with patient: 15 - 24 minutes Quality Stroke Does the patient have a stroke diagnosis?: No VTE Prior VTE?: Yes VTE Risk Level:: Surgical - very high VTE Device Contraindication: Treatment Not Indicated (stasis ulcer RLE) VTE Drug Contraindication: N/A - Med Ordered
[2021-10-08] MEDS: Albuterol/Iprat 2.5/0.5MG 3 ML AMPUL.NEB INHALE ×3 (07:26→20:10)
[2021-10-08] MEDS: Enoxaparin Sodium 40 MG/0.4 ML SYRINGE SUBCUT (08:31)
[2021-10-08] MEDS: methADONE HCl 20 MG/2 ML ORAL.CONC 135 MG PO (09:14)
--- NOTE | 2021-10-08 11:43 | MHC.CM.PN ---
Pt brought to ICU for respirartory care following emergent surgery d/t incarerated hernia: Surgery was prolonged and pt was kept intubated d/t morbid obesity and hx of narcotic dependence. CM met with pt who had recently been extubated. Pt alert but very slow to respond. States his address in [facility] in [place] and that his EMR listed next of kin, Vicki Torres, is no longer a contact. Pt could not name his PCP or state the name/number of a next of kin/contact. He did state he lives with a roommate but could not offer a name. He notes he drives, has a car but could not recall if he had medical equipment or services. At this time, CM assessment will be deferred until 10/09 to allow pt to improve mentally after surgery/extubation.
--- NOTE | 2021-10-08 13:54 | PM.CCPN ---
Subjective Subjective Date of Service: 10/08/21 Interval History: 66-year-old morbidly obese hypertensive hyperlipidemic with obesity/hypoventilation and probable sleep apnea as well as and active asthma who is just extubated postoperatively after laparotomy to reduce an inguinal hernia and that required a abdominal wall mesh but there was no ischemically compromised bowel and he is awake and alert doing well without active respiratory difficulties and made the transition to methadone Critical Care Time (minutes): 45 Physical Exam Vital Signs: Vital Signs: Last Vital Signs Temp 99.5 F 10/08/21 12:00 Pulse 111 H 10/08/21 13:00 Resp 19 10/08/21 13:00 BP 147/99 H 10/08/21 13:00 Pulse Ox 91 L 10/08/21 13:00 BMI result Body Mass Index 49.9 Awake and alert an oriented and nonfocal neurologically Normal sinus rhythm with oxygen saturation of 93% and sinus tach at a rate of 110 blood pressure 147/99 and end-tidal CO2 of approximately 29-30 on nasal cannula Lungs without evidence issues sound Cardiac exam without gallops no neck vein distension and has good bilateral carotid upstrokes Bilateral stasis dermatitis with a right ankle pressure sore but no cellulitis Objective Data Labs CBC & Chem 7: 10/08/21 05:22 10/08/21 05:22 Labs: Laboratory Results - last 24 hr 10/07/21 10/08/21 10/08/21 18:45 05:22 05:22 WBC 5.8 RBC 3.41 L Hgb 11.1 L Hct 32.2 L MCV 94.4 MCH 32.6 MCHC 34.5 RDW 13.5 Plt Count 192 MPV 9.2 L Absolute Nucleated RBC 0.000 Nucleated RBC % (auto) 0.0 O2 Saturation 90.0 ABG pH at Pt Temp 7.47 H ABG pH (Temp Correct) 7.48 H ABG pCO2 at Pt Temp 37 ABG pCO2 (Temp Corrct 36 ABG pO2 at Pt Temp 63 L ABG pO2 (Temp Correct 60 L ABG HCO3 27 H ABG Base Excess (Actual) 3.8 VBG pH VBG pCO2 VBG pO2 VBG HCO3 VBG O2 Saturation VBG Base Excess Sodium 138 Potassium 4.1 Chloride 104 Carbon Dioxide 27 Anion Gap 11 L BUN 13 Creatinine 0.85 Estim Creat Clear Calc 126.1 Estimated GFR > 60 Random Glucose 121 H Calcium 8.1 L D Phosphorus 2.1 L Magnesium 1.7 10/08/21 05:29 WBC RBC Hgb Hct MCV MCH MCHC RDW Plt Count MPV Absolute Nucleated RBC Nucleated RBC % (auto) O2 Saturation ABG pH at Pt Temp ABG pH (Temp Correct) ABG pCO2 at Pt Temp ABG pCO2 (Temp Corrct ABG pO2 at Pt Temp ABG pO2 (Temp Correct ABG HCO3 ABG Base Excess (Actual) VBG pH 7.57 H VBG pCO2 31 VBG pO2 84 VBG HCO3 29 H VBG O2 Saturation 96.0 VBG Base Excess 7.7 Sodium Potassium Chloride Carbon Dioxide Anion Gap BUN Creatinine Estim Creat Clear Calc Estimated GFR Random Glucose Calcium Phosphorus Magnesium Microbiology Microbiology Results: Microbiology 10/07/21 05:05 Blood - Venous Blood Culture - Preliminary No growth after 24 hours. 10/07/21 05:05 Blood - Venous Blood Culture - Preliminary No growth after 24 hours. Progress Note: A&P Assessment and plan (1) Hyperlipidemia: Status: Acute (2) Hypertensive cardiovascular disease: Status: Acute (3) Asthma: Status: Acute (4) Obesity hypoventilation syndrome: Status: Acute (5) Morbid obesity due to excess calories: Status: Acute (6) Narcotic addiction: Status: Acute (7) Small bowel obstruction: Status: Acute (8) Incarcerated right inguinal hernia: Status: Acute (9) Abdominal pain: Status: Acute Assessment and Plan: Doing very well and he can be transferred to a medical floor on nasal cannula and continued bed bronchodilator therapy for pulmonary toileting as well as bedside spirometry Quality Stroke Does the patient have a stroke diagnosis?: No VTE Prior VTE?: Yes VTE Risk Level:: Surgical - very high VTE Device Contraindication: Treatment Not Indicated (stasis ulcer RLE) VTE Drug Contraindication: N/A - Med Ordered
--- NOTE | 2021-10-08 14:51 | HO.POSTANES ---
Post Anesthesia Evaluation Post Anesthesia Evaluation Vital Signs: Vital Signs Temp Pulse Resp BP Pulse Ox 10/08/21 13:00 111 H 19 147/99 H 91 L 10/08/21 12:00 99.5 F 109 H 17 117/76 92 10/08/21 11:15 111 H 10/08/21 11:00 109 H 15 122/87 92 10/08/21 10:00 114 H 20 138/98 H 92 10/08/21 09:00 112 H 26 H 133/80 92 10/08/21 08:00 98.2 F 119 H 31 H 94/76 89 L 10/08/21 07:26 102 H 10/08/21 07:00 97 20 104/59 L 92 10/08/21 05:50 100.8 F H 95 20 100/61 92 10/08/21 05:00 97 20 97/55 L 88 L 10/08/21 03:55 88 20 95/57 L 91 L Anesthesia: General Endotracheal-GETA Mental Status: Awake Pain Control: Satisfactory Nausea/Vomiting: None Hydration: Adequate Anesthesia-Related Issues: No Anes. Related Issues Comments: extubated this morning. saturating 92-93% on oxygen.
[2021-10-08] MEDS: Acetaminophen 325 MG TABLET 650 MG PO (20:17)
[2021-10-08] MEDS: oxyCODONE HCl Immed Release 5 MG TABLET 10 MG PO (21:00)
[2021-10-09] VITALS (7 sets, daily range): BP systolic 114–162; BP diastolic 69–99; PULSE 85–107; RESP 14–20; TEMP 36–36.7; O2SAT 92–95
[2021-10-09] MEDS: Acetaminophen 325 MG TABLET 650 MG PO (02:40)
[2021-10-09] MEDS: oxyCODONE HCl Immed Release 5 MG TABLET 10 MG PO ×4 (02:41→22:08)
[2021-10-09] MEDS: Lactated Ringers 1,000 ML 80 ML IVCONT ×2 (06:31→21:52)
[2021-10-09] MEDS: methADONE HCl 20 MG/2 ML ORAL.CONC 135 MG PO (07:30)
[2021-10-09] MEDS: Enoxaparin Sodium 40 MG/0.4 ML SYRINGE SUBCUT (07:33)
[2021-10-09 08:05] LABS: MANUAL DIFF FLAG NO
--- NOTE | 2021-10-09 08:05 | PC.NURSE ---
Skin/Wound assessment completed. Patient has hemosiderin staining to bilateral extremities with a small ulcer on posterior right leg. Cleansed with normal saline, Xeroform applied and covered with non woven gauze and roll gauze. Patient also has a midline abdominal incision- bandage C/D/I. No other skin issues noted at this time.
[2021-10-09 08:10] LABS: Basophils Percent Auto 0.2 % (0-2); Eosinophils Absolute Auto 0.1 X10*3/uL (0.0-0.4); Eosinophils Percent Auto 0.8 % (0-4); Hematocrit 33.7 % (42.0-52.0); Hemoglobin 11.3 g/dl (14.0-18.0); Imm Gran Abs Auto 0.04 X10*3/uL (0.00-0.03); Imm Gran Pct Auto 0.5 % (0.0-0.4); Lymphocytes Absolute Auto 0.7 X10*3/uL (1.2-4.9); Lymphocytes Percent Auto 7.9 % (20-40); Mean Corpuscular HGB Conc 33.5 g/dl (31.0-36.0); Mean Corpuscular Hemoglobin 32.3 pg (27.0-33.0); Mean Corpuscular Volume 96.3 fL (80.0-98.0); Mean Platelet Volume 9.1 fL (9.4-12.4); Monocytes Absolute Auto 0.8 X10*3/uL (0.1-1.2); Monocytes Percent Auto 9.3 % (2-11); Neutrophils Percent Auto 81.3 % (45-73); Platelet Count 186 X10*3/uL (160-400); Red Cell Distribution Width 13.8 % (11.0-16.0); White Blood Count 8.6 X10*3/uL (4.8-10.8)
--- NOTE | 2021-10-09 08:23 | P.PNGS_ITS ---
Subjective Subjective Date of Service: 10/09/21 <Elizabeth Ca PA-C - Last Filed: 10/09/21 08:29> 10/09/21 <Venkatesh Wilson MD - Last Filed: 10/09/21 09:36> Interval history: Extubated yesterday and transferred from ICU. C/o pain at incision site- medication helping but wears off quickly. Wants catheter out. Passing some flatus. Has not had any liquids yet. <Elizabeth Ca PA-C - Last Filed: 10/09/21 08:29> Physical Exam Vital Signs: Vital Signs: Last Vital Signs Temp 97.2 F 10/09/21 07:28 Pulse 102 H 10/09/21 07:28 Resp 18 10/09/21 07:28 BP 114/71 10/09/21 07:28 Pulse Ox 94 10/09/21 07:28 BMI result Body Mass Index 49.9 <Elizabeth Ca PA-C - Last Filed: 10/09/21 08:29> Const: General: comfortable, no acute distress and alert <Elizabeth Ca PA-C - Last Filed: 10/09/21 08:29> Nutritional Appearance: obese <Elizabeth Ca PA-C - Last Filed: 10/09/21 08:29> Orientation/consciousness: patient oriented x3 <Elizabeth Ca PA-C - Last Filed: 10/09/21 08:29> Cardio: Rate: tachycardic <Elizabeth Ca PA-C - Last Filed: 10/09/21 08:29> GI: Other: protuberant abdomen, incision clean, SANDRA in place with serosanguineous drainage <Elizabeth Ca PA-C - Last Filed: 10/09/21 08:29> Inspection: Yes incision (clean) <JAY Mota Last Filed: 10/09/21 08:29> Palpation (GI): Soft to palpation and Tenderness to palpation present (GI) (incisional) <JAY Mota Last Filed: 10/09/21 08:29> Skin: Other: warm and dry <Elizabeth Ca PA-C - Last Filed: 10/09/21 08:29> Neuro: General: patient oriented x3 <Elizabeth Ca PA-C - Last Filed: 10/09/21 08:29> Extrem: Other: ulcers of b/l LE, chronic <Elizabeth Ca PA-C - Last Filed: 10/09/21 08:29> Objective Data Active Medications Albuterol/Ipratropium (Albuterol/Iprat 2.5/0.5mg 3 Ml Ampul.Neb) 3 ml INHALE Q6H [facility] Last Admin: 10/09/21 08:21 Dose: Not Given Documented by: BALDEV Non-Admin Reason: Patient Refused Atorvastatin Calcium (Atorvastatin Calcium 40 Mg Tablet) 40 mg PO BEDTIME [facility] Docusate Sodium (Docusate Sodium 100 Mg Capsule) 100 mg PO BID [facility] Enoxaparin Sodium (Enoxaparin Sodium 40 Mg/0.4 Ml Syringe) 40 mg SUBCUT DAILY [facility] Last Admin: 10/09/21 07:33 Dose: 40 mg Documented by: HIRO Fluticasone/Vilanterol (Fluticasone/Vilanterol 100/25 Blst.W.Dev) 1 puff INHALE RDAILY [facility] Last Admin: 10/09/21 08:21 Dose: Not Given Documented by: BALDEV Non-Admin Reason: Patient Refused Lactated Ringer's (Lr) 1,000 mls @ 80 mls/hr IVCONT .[id number] [facility] Last Admin: 10/09/21 06:31 Dose: 80 mls/hr Documented by: AMBER Acetaminophen (Ofirmev) 1,000 mg in 100 mls @ 400 mls/hr IV Q6H PRN PRN Reason: Pain, Mild (Pain Scale 1-3) Stop: 10/10/21 02:29 Lactic Acid (Ammonium Lactate 12 % Cream 140 Gm Tube) 1 appl TOPICAL BID PRN; Protocol PRN Reason: Rash Methadone HCl (Methadone Hcl 20 Mg/2 Ml Oral.Conc) 135 mg PO DAILY [facility] Last Admin: 10/09/21 07:30 Dose: 135 mg Documented by: HIRO Morphine Sulfate (Morphine Sulfate 2 Mg/Ml Cartridge) 4 mg IVPUSH Q3H PRN; Protocol PRN Reason: Pain, Severe (Pain Scale 7-10) Naloxone HCl (Naloxone Hcl 0.4 Mg/Ml Vial) 0.2 mg IVPUSH Q2M PRN PRN Reason: Excessive sedation or RR < 8 Oxycodone HCl (Oxycodone Hcl Immed Release 5 Mg Tablet) 10 mg PO Q6H PRN PRN Reason: Pain, Severe (Pain Scale 7-10) Last Admin: 10/09/21 02:41 Dose: 10 mg Documented by: AMBER <Elizabeth Ca PA-C - Last Filed: 10/09/21 08:29> Labs CBC & Chem 7: : 10/09/21 07:55 10/09/21 07:55 <Elizabeth Ca PA-C - Last Filed: 10/09/21 08:29> Labs: Laboratory Results - last 24 hr 10/09/21 07:55 MCV 96.3 MCH 32.3 MCHC 33.5 RDW 13.8 Plt Count 186 MPV 9.1 L Immature Gran % (Auto) 0.5 H Neut % (Auto) 81.3 H Lymph % (Auto) 7.9 L Baxter % (Auto) 9.3 Eos % (Auto) 0.8 Baso % (Auto) 0.2 Lymph # (Auto) 0.7 L Baxter # (Auto) 0.8 Eos # (Auto) 0.1 Baso # (Auto) 0.0 Abs Immat Gran (auto) 0.04 H Absolute Neuts (auto) 7.0 Absolute Nucleated RBC 0.000 Nucleated RBC % (auto) 0.0 <Elizabeth Ca PA-C - Last Filed: 10/09/21 08:29> Microbiology Microbiology Results: Microbiology 10/07/21 05:05 Blood Culture - Preliminary Blood - Venous No growth after 48 hours. 10/07/21 05:05 Blood Culture - Preliminary Blood - Venous No growth after 48 hours. <JAY Mota Last Filed: 10/09/21 08:29> Procedures Date of Service Date of Service: 10/09/21 <Elizabeth Ca PA-C - Last Filed: 10/09/21 08:29> Progress Note: A&P Assessment and plan (1) Morbid obesity due to excess calories: Status: Acute <Elizabeth Ca PA-C - Last Filed: 10/09/21 08:29> (2) Small bowel obstruction: Status: Acute <Elizabeth Ca PA-C - Last Filed: 10/09/21 08:29> (3) Narcotic addiction: Status: Acute <Elizabeth Ca PA-C - Last Filed: 10/09/21 08:29> (4) Incarcerated right inguinal hernia: Status: Acute <Elizabeth Ca PA-C - Last Filed: 10/09/21 08:29> Assessment and Plan: Pod 2 status post repair of incarcerated right inguinal hernia, scrotal hernia containing small bowel and cecum with large Ventralex mesh. Extubated yesterday and transferred from ICU. Remains hemodynamically stable. C/o difficulty with pain control. Will add morphine IV PRN, ofirmev. VSS. Abd- protuberant, incision clean, SANDRA in place with serosanguineous discharge.?Cont clear liquids, advance as tolerated. D/c campa today. Encouraged OOB/ambulation and IS use. Patient comfortable with plan. Medicine following for medical comorbidities. Appreciate input. <Elizabeth Ca PA-C - Last Filed: 10/09/21 08:29> Pod 2 status post repair of incarcerated right inguinal hernia, scrotal hernia containing small bowel and cecum with large Ventralex mesh. Extubated yesterday and transferred from ICU. Remains hemodynamically stable. C/o difficulty with pain control. Will add morphine IV PRN, ofirmev. VSS. Abd- protuberant, incision clean, SANDRA in place with serosanguineous discharge.?Cont clear liquids, advance as tolerated. D/c campa today. Encouraged OOB/ambulation and IS use. Patient comfortable with plan. Medicine following for medical comorbidities. Appreciate input. Agree with the above assessment and plan. He reports increased incisonal pain; new meds added. He tolerated clears yesterday. I will advance to regular diet. <Venkatesh Wilson MD - Last Filed: 10/09/21 09:36> Fall Risk Details Current Medications: Current Medications Albuterol/Ipratropium (Albuterol/Iprat 2.5/0.5mg 3 Ml Ampul.Neb) 3 ml INHALE Q6H [facility] Last Admin: 10/09/21 08:21 Dose: Not Given Documented by: Atorvastatin Calcium (Atorvastatin Calcium 40 Mg Tablet) 40 mg PO BEDTIME [facility] Docusate Sodium (Docusate Sodium 100 Mg Capsule) 100 mg PO BID [facility] Enoxaparin Sodium (Enoxaparin Sodium 40 Mg/0.4 Ml Syringe) 40 mg SUBCUT DAILY [facility] Last Admin: 10/09/21 07:33 Dose: 40 mg Documented by: Fluticasone/Vilanterol (Fluticasone/Vilanterol 100/25 Blst.W.Dev) 1 puff INHALE RDAILY [facility] Last Admin: 10/09/21 08:21 Dose: Not Given Documented by: Lactated Ringer's (Lr) 1,000 mls @ 80 mls/hr IVCONT .[id number] [facility] Last Admin: 10/09/21 06:31 Dose: 80 mls/hr Documented by: Acetaminophen (Ofirmev) 1,000 mg in 100 mls @ 400 mls/hr IV Q6H PRN PRN Reason: Pain, Mild (Pain Scale 1-3) Stop: 10/10/21 02:29 Lactic Acid (Ammonium Lactate 12 % Cream 140 Gm Tube) 1 appl TOPICAL BID PRN; Protocol PRN Reason: Rash Methadone HCl (Methadone Hcl 20 Mg/2 Ml Oral.Conc) 135 mg PO DAILY [facility] Last Admin: 10/09/21 07:30 Dose: 135 mg Documented by: Morphine Sulfate (Morphine Sulfate 2 Mg/Ml Cartridge) 4 mg IVPUSH Q3H PRN; Protocol PRN Reason: Pain, Severe (Pain Scale 7-10) Naloxone HCl (Naloxone Hcl 0.4 Mg/Ml Vial) 0.2 mg IVPUSH Q2M PRN PRN Reason: Excessive sedation or RR < 8 Oxycodone HCl (Oxycodone Hcl Immed Release 5 Mg Tablet) 10 mg PO Q6H PRN PRN Reason: Pain, Severe (Pain Scale 7-10) Last Admin: 10/09/21 02:41 Dose: 10 mg Documented by: <Elizabeth Ca PA-C - Last Filed: 10/09/21 08:29> Time Spent With Patient Time: Total time spent is greater than 50% in coordination of care (as documented) at patient's floor/unit and/or counseling patient: <Elizabeth Ca PA-C - Last Filed: 10/09/21 08:29> Time with patient: 15 - 24 minutes <Elizabeth Ca PA-C - Last Filed: 10/09/21 08:29> Quality Stroke Does the patient have a stroke diagnosis?: No <Elizabeth Ca PA-C - Last Filed: 10/09/21 08:29> VTE Prior VTE?: Yes <Elizabeth Ca PA-C - Last Filed: 10/09/21 08:29> VTE Risk Level:: Surgical - very high <Elizabeth Ca PA-C - Last Filed: 10/09/21 08:29> VTE Device Contraindication: Treatment Not Indicated (stasis ulcer RLE) <Elizabeth Ca PA-C - Last Filed: 10/09/21 08:29> VTE Drug Contraindication: N/A - Med Ordered <Elizabeth Ca PA-C - Last Filed: 10/09/21 08:29>
[2021-10-09 08:30] LABS: Anion Gap 14 (12-20); Blood Urea Nitrogen 14 mg/dL (9-16); Calcium 8.4 mg/dL (8.4-10.2); Carbon Dioxide 27 mmol/L (22-29); Chloride 102 mmol/L (96-108); Creatinine Clr Calc Pharmacy 131.2; Estimated Glomerular Filt Rate > 60; Glucose Random 116 mg/dL (60-115); Potassium 3.7 mmol/L (3.3-5.1); Sodium 139 mmol/L (135-145)
[2021-10-09] MEDS: Docusate Sodium 100 MG CAPSULE PO ×2 (08:57→21:51)
--- NOTE | 2021-10-09 12:05 | MHC.CM.PN ---
PER MULTIDISCIPLINARY ROUNDS PT WILL REMAIN INPT FOR SOME TIME, NO PLAN FOR D/C OVER W/E, CM MET W/PT WHO VERIFIED PCP IS ALEJANDRA MORGAN, USES A CANE IN THE WINTER ONLY, NO OTHER DME, HAS DAILY VNA THROUGH [facility] WHO GIVE HIM HIS METHADONE/KEPT IN LOCK BOX AND USES [facility], PT IS PLANNING ON RETURNING HOME W/RESUMP OF SERVICES AND DOES NOT WANT STR. D/C PLAN' HOME W/RESUMP OF [facility] FOR DAILY VNA, [facility] FOR TRANSPORT
--- NOTE | 2021-10-09 12:42 | HO.PM.IMPN ---
Subjective Subjective Date of Service: 10/09/21 Interval History: Seen and examined this morning Follow-up for medical consultation for incarcerated right inguinal hernia status post repair with mesh Complaining of abdominal pain Passing flatus, no bowel Denies shortness breath, reports some coughing Review of Systems Review of Systems: Yes all other systems are reviewed and are negative Constitutional Constitutional: Denies chills and Denies fever(s) Cardiovascular Cardiovascular: Denies chest pain Physical Exam Vital Signs: Vital Signs: Last Vital Signs Temp 96.8 F 10/09/21 11:49 Pulse 96 10/09/21 11:49 Resp 18 10/09/21 11:49 BP 143/99 H 10/09/21 11:49 Pulse Ox 94 10/09/21 11:49 BMI result Body Mass Index 49.9 Const: General: no acute distress, alert and awake Nutritional Appearance: obese Orientation/consciousness: patient oriented x3 HENMT: Head: Yes normocephalic and Yes atraumatic Eyes: Sclerae: sclerae normal Resp: Other: Difficult to assess, diminished breath sounds bilaterally, appears mildly dyspneic Effort & Inspection: able to speak in complete sentences and no respiratory distress Cardio: Rate: regular rate Rhythm: regular rhythm GI: Other: anushka-incisional tenderness SANDRA in place, scant serosanguineous drainage Neuro: General: patient oriented x3 Cranial nerves: Yes CN's II-XII intact bilaterally and Yes Bilaterally intact EOM present Extrem: Other: Able to move all 4 extremities spontaneously; chronic skin changes lower legs; b/l chronic ulcers, no erythema Objective Data Active Medications Albuterol/Ipratropium (Albuterol/Iprat 2.5/0.5mg 3 Ml Ampul.Neb) 3 ml INHALE RQ4H WHILE AWAKE [facility] Last Admin: 10/09/21 11:28 Dose: Not Given Documented by: BALDEV Non-Admin Reason: Patient Asleep Atorvastatin Calcium (Atorvastatin Calcium 40 Mg Tablet) 40 mg PO BEDTIME [facility] Docusate Sodium (Docusate Sodium 100 Mg Capsule) 100 mg PO BID [facility] Last Admin: 10/09/21 08:57 Dose: 100 mg Documented by: HIRO Enoxaparin Sodium (Enoxaparin Sodium 40 Mg/0.4 Ml Syringe) 40 mg SUBCUT DAILY [facility] Last Admin: 10/09/21 07:33 Dose: 40 mg Documented by: HIRO Fluticasone/Vilanterol (Fluticasone/Vilanterol 100/25 Blst.W.Dev) 1 puff INHALE RDAILY [facility] Last Admin: 10/09/21 08:21 Dose: Not Given Documented by: BALDEV Non-Admin Reason: Patient Refused Lactated Ringer's (Lr) 1,000 mls @ 80 mls/hr IVCONT .[id number] [facility] Last Admin: 10/09/21 06:31 Dose: 80 mls/hr Documented by: AMBER Acetaminophen (Ofirmev) 1,000 mg in 100 mls @ 400 mls/hr IV Q6H PRN PRN Reason: Pain, Mild (Pain Scale 1-3) Stop: 10/10/21 02:29 Last Infusion: 10/09/21 11:07 Dose: 400 mls/hr Documented by: HIRO Lactic Acid (Ammonium Lactate 12 % Cream 140 Gm Tube) 1 appl TOPICAL BID PRN; Protocol PRN Reason: Rash Methadone HCl (Methadone Hcl 20 Mg/2 Ml Oral.Conc) 135 mg PO DAILY [facility] Last Admin: 10/09/21 07:30 Dose: 135 mg Documented by: HIRO Morphine Sulfate (Morphine Sulfate 2 Mg/Ml Cartridge) 4 mg IVPUSH Q3H PRN; Protocol PRN Reason: Pain, Severe (Pain Scale 7-10) Naloxone HCl (Naloxone Hcl 0.4 Mg/Ml Vial) 0.2 mg IVPUSH Q2M PRN PRN Reason: Excessive sedation or RR < 8 Oxycodone HCl (Oxycodone Hcl Immed Release 5 Mg Tablet) 10 mg PO Q6H PRN PRN Reason: Pain, Severe (Pain Scale 7-10) Last Admin: 10/09/21 08:56 Dose: 10 mg Documented by: HIRO Labs CBC & Chem 7: 10/09/21 07:55 10/09/21 07:55 Labs: Laboratory Results - last 24 hr 10/09/21 10/09/21 07:55 07:55 MCV 96.3 MCH 32.3 MCHC 33.5 RDW 13.8 Plt Count 186 MPV 9.1 L Immature Gran % (Auto) 0.5 H Neut % (Auto) 81.3 H Lymph % (Auto) 7.9 L [place] % (Auto) 9.3 Eos % (Auto) 0.8 Baso % (Auto) 0.2 Lymph # (Auto) 0.7 L [place] # (Auto) 0.8 Eos # (Auto) 0.1 Baso # (Auto) 0.0 Abs Immat Gran (auto) 0.04 H Absolute Neuts (auto) 7.0 Absolute Nucleated RBC 0.000 Nucleated RBC % (auto) 0.0 Anion Gap 14 Estim Creat Clear Calc 131.2 Estimated GFR > 60 Random Glucose 116 H Calcium 8.4 Microbiology Microbiology Results: Microbiology 10/07/21 05:05 Blood Culture - Preliminary Blood - Venous No growth after 48 hours. 10/07/21 05:05 Blood Culture - Preliminary Blood - Venous No growth after 48 hours. Assessment and Plan (1) Hyperlipidemia: Status: Acute Assessment and Plan: This is a 62-year-old morbidly obese male with history of asthma, opiate dependence on methadone, morbid obesity, probable undiagnosed KEILA, HTN, HLD who presented to the emergency department with abdominal pain found to have incarcerated right inguinal hernia, scrotal hernia containing small bowel and cecum status post emergent laparotomy with repair with mesh initially remained intubated in the ICU. Extubated October 08 and downgraded to medical floor. 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 cotto Quality Stroke Does the patient have a stroke diagnosis?: No VTE Prior VTE?: Yes VTE Risk Level:: Surgical - very high VTE Device Contraindication: Treatment Not Indicated (stasis ulcer RLE) VTE Drug Contraindication: N/A - Med Ordered
[2021-10-09] MEDS: Morphine Sulfate 2 MG/ML CARTRIDGE 4 MG IVPUSH ×2 (13:32→18:09)
[2021-10-09] MEDS: Nicotine 14 MG PATCH.TD24 TRANSDERMA (13:36)
[2021-10-09] MEDS: Enoxaparin Sodium 80 MG/0.8 ML SYRINGE 160 MG SUBCUT (14:07)
[2021-10-09 14:38] LABS: INTERNATIONAL NORM RATIO 1.2 (0.9-1.1); Prothrombin Time 14.2 SEC (9.9-13.0)
[2021-10-09] MEDS: Albuterol/Iprat 2.5/0.5MG 3 ML AMPUL.NEB INHALE (15:31)
[2021-10-09] MEDS: Warfarin Sodium 6 MG TABLET PO (18:07)
[2021-10-10] VITALS (11 sets, daily range): BP systolic 94–136; BP diastolic 57–78; PULSE 86–94; RESP 17–22; TEMP 35.9–36.6; O2SAT 92–97
[2021-10-10] MEDS: Enoxaparin Sodium 80 MG/0.8 ML SYRINGE 160 MG SUBCUT ×2 (02:08→13:55)
[2021-10-10] MEDS: Morphine Sulfate 2 MG/ML CARTRIDGE 4 MG IVPUSH ×2 (04:02→08:21)
[2021-10-10 06:37] LABS: Mean Corpuscular HGB Conc 32.4 g/dl (31.0-36.0); Mean Corpuscular Hemoglobin 31.7 pg (27.0-33.0); Mean Platelet Volume 9.2 fL (9.4-12.4); Platelet Count 196 X10*3/uL (160-400); Red Blood Count 3.47 X10*6/uL (4.60-5.80); Red Cell Distribution Width 13.4 % (11.0-16.0); White Blood Count 7.8 X10*3/uL (4.8-10.8)
[2021-10-10 06:41] LABS: INTERNATIONAL NORM RATIO 1.4 (0.9-1.1); Prothrombin Time 16.2 SEC (9.9-13.0)
[2021-10-10 07:00] LABS: Anion Gap 12 (12-20); Blood Urea Nitrogen 16 mg/dL (9-16); Calcium 8.2 mg/dL (8.4-10.2); Carbon Dioxide 29 mmol/L (22-29); Chloride 100 mmol/L (96-108); Estimated Glomerular Filt Rate > 60; Glucose Random 92 mg/dL (60-115); Potassium 3.9 mmol/L (3.3-5.1); Sodium 137 mmol/L (135-145)
[2021-10-10] MEDS: Fluticasone/Vilanterol 100/25 BLST.W.DEV 1 PUFF INHALE (07:45)
[2021-10-10] MEDS: Albuterol/Iprat 2.5/0.5MG 3 ML AMPUL.NEB INHALE ×4 (07:45→19:58)
[2021-10-10] MEDS: Docusate Sodium 100 MG CAPSULE PO ×2 (08:19→20:40)
[2021-10-10] MEDS: lisinopriL 40 MG TABLET PO (08:19)
[2021-10-10] MEDS: Nicotine 14 MG PATCH.TD24 TRANSDERMA (08:19)
[2021-10-10] MEDS: methADONE HCl 20 MG/2 ML ORAL.CONC 135 MG PO (08:20)
[2021-10-10] MEDS: Lactated Ringers 1,000 ML 80 ML IVCONT (08:29)
--- NOTE | 2021-10-10 09:38 | P.PNGS_ITS ---
Subjective Subjective Date of Service: 10/10/21 Interval history: says he still has pain but improving tolerating diet well has flatus Physical Exam Vital Signs: Vital Signs: Last Vital Signs Temp 97.1 F 10/10/21 07:28 Pulse 92 10/10/21 07:47 Resp 21 H 10/10/21 07:28 BP 121/73 10/10/21 07:28 Pulse Ox 94 10/10/21 07:28 BMI result Body Mass Index 49.9 Const: General: comfortable and no acute distress Nutritional Appearance: obese Resp: Effort & Inspection: normal respiratory effort Cardio: Rate: regular rate GI: Other: soft, SANDRA- serous, incision dry, no celulitis, repair appears intact Objective Data Active Medications Albuterol/Ipratropium (Albuterol/Iprat 2.5/0.5mg 3 Ml Ampul.Neb) 3 ml INHALE RQ4H WHILE AWAKE [facility] Last Admin: 10/10/21 07:45 Dose: 3 ml Documented by: AWA Atorvastatin Calcium (Atorvastatin Calcium 40 Mg Tablet) 40 mg PO BEDTIME [facility] Docusate Sodium (Docusate Sodium 100 Mg Capsule) 100 mg PO BID [facility] Last Admin: 10/10/21 08:19 Dose: 100 mg Documented by: HIRO Enoxaparin Sodium (Enoxaparin Sodium 80 Mg/0.8 Ml Syringe) 160 mg SUBCUT Q12H [facility] Last Admin: 10/10/21 02:08 Dose: 160 mg Documented by: CASTILM Fluticasone/Vilanterol (Fluticasone/Vilanterol 100/25 Blst.W.Dev) 1 puff INHALE RDAILY [facility] Last Admin: 10/10/21 07:45 Dose: 1 puff Documented by: AWA Lactated Ringer's (Lr) 1,000 mls @ 80 mls/hr IVCONT .[id number] [facility] Last Admin: 10/10/21 08:29 Dose: 80 mls/hr Documented by: HIRO Lactic Acid (Ammonium Lactate 12 % Cream 140 Gm Tube) 1 appl TOPICAL BID PRN; Protocol PRN Reason: Rash Lisinopril (Lisinopril 40 Mg Tablet) 40 mg PO DAILY [facility]; Protocol Last Admin: 10/10/21 08:19 Dose: 40 mg Documented by: HIRO Methadone HCl (Methadone Hcl 20 Mg/2 Ml Oral.Conc) 135 mg PO DAILY [facility] Last Admin: 10/10/21 08:20 Dose: 135 mg Documented by: HIRO Morphine Sulfate (Morphine Sulfate 2 Mg/Ml Cartridge) 4 mg IVPUSH Q3H PRN; Protocol PRN Reason: Pain, Severe (Pain Scale 7-10) Last Admin: 10/10/21 08:21 Dose: 4 mg Documented by: HIRO Naloxone HCl (Naloxone Hcl 0.4 Mg/Ml Vial) 0.2 mg IVPUSH Q2M PRN PRN Reason: Excessive sedation or RR < 8 Nicotine (Nicotine 14 Mg Patch.Td24) 14 mg TRANSDERMA DAILY [facility] Last Admin: 10/10/21 08:19 Dose: 14 mg Documented by: HIRO Oxycodone HCl (Oxycodone Hcl Immed Release 5 Mg Tablet) 10 mg PO Q6H PRN PRN Reason: Pain, Severe (Pain Scale 7-10) Last Admin: 10/09/21 22:08 Dose: 10 mg Documented by: DESTINY Warfarin Sodium (Warfarin Sodium 6 Mg Tablet) 6 mg PO DAILY@1800 [facility] Last Admin: 10/09/21 18:07 Dose: 6 mg Documented by: ALEXA Labs CBC & Chem 7: 10/10/21 06:22 10/10/21 06:22 Labs: Laboratory Results - last 24 hr 10/09/21 10/10/21 10/10/21 14:06 06:22 06:22 MCV 98.0 MCH 31.7 MCHC 32.4 RDW 13.4 Plt Count 196 MPV 9.2 L Absolute Nucleated RBC 0.000 Nucleated RBC % (auto) 0.0 PT 14.2 H 16.2 H INR 1.2 H 1.4 H Anion Gap Estim Creat Clear Calc Estimated GFR Random Glucose Calcium 10/10/21 06:22 MCV MCH MCHC RDW Plt Count MPV Absolute Nucleated RBC Nucleated RBC % (auto) PT INR Anion Gap 12 Estim Creat Clear Calc 136.0 Estimated GFR > 60 Random Glucose 92 Calcium 8.2 L Microbiology Microbiology Results: Microbiology 10/07/21 05:05 Blood Culture - Preliminary Blood - Venous No growth after 48 hours. 10/07/21 05:05 Blood Culture - Preliminary Blood - Venous No growth after 48 hours. Procedures Date of Service Date of Service: 10/10/21 Progress Note: A&P Assessment and plan (1) Incarcerated right inguinal hernia: Status: Acute Assessment and Plan: S/P repair with mesh good GI function incision clean, repair intact keep SANDRA in place for now pt not yet ready for discharge pain mgt OOB dc IVF labs ok Fall Risk Details Current Medications: Current Medications Albuterol/Ipratropium (Albuterol/Iprat 2.5/0.5mg 3 Ml Ampul.Neb) 3 ml INHALE RQ4H WHILE AWAKE [facility] Last Admin: 10/10/21 07:45 Dose: 3 ml Documented by: Atorvastatin Calcium (Atorvastatin Calcium 40 Mg Tablet) 40 mg PO BEDTIME [facility] Docusate Sodium (Docusate Sodium 100 Mg Capsule) 100 mg PO BID [facility] Last Admin: 10/10/21 08:19 Dose: 100 mg Documented by: Enoxaparin Sodium (Enoxaparin Sodium 80 Mg/0.8 Ml Syringe) 160 mg SUBCUT Q12H [facility] Last Admin: 10/10/21 02:08 Dose: 160 mg Documented by: Fluticasone/Vilanterol (Fluticasone/Vilanterol 100/25 Blst.W.Dev) 1 puff INHALE RDAILY [facility] Last Admin: 10/10/21 07:45 Dose: 1 puff Documented by: Lactated Ringer's (Lr) 1,000 mls @ 80 mls/hr IVCONT .[id number] [facility] Last Admin: 10/10/21 08:29 Dose: 80 mls/hr Documented by: Lactic Acid (Ammonium Lactate 12 % Cream 140 Gm Tube) 1 appl TOPICAL BID PRN; Protocol PRN Reason: Rash Lisinopril (Lisinopril 40 Mg Tablet) 40 mg PO DAILY [facility]; Protocol Last Admin: 10/10/21 08:19 Dose: 40 mg Documented by: Methadone HCl (Methadone Hcl 20 Mg/2 Ml Oral.Conc) 135 mg PO DAILY [facility] Last Admin: 10/10/21 08:20 Dose: 135 mg Documented by: Morphine Sulfate (Morphine Sulfate 2 Mg/Ml Cartridge) 4 mg IVPUSH Q3H PRN; Protocol PRN Reason: Pain, Severe (Pain Scale 7-10) Last Admin: 10/10/21 08:21 Dose: 4 mg Documented by: Naloxone HCl (Naloxone Hcl 0.4 Mg/Ml Vial) 0.2 mg IVPUSH Q2M PRN PRN Reason: Excessive sedation or RR < 8 Nicotine (Nicotine 14 Mg Patch.Td24) 14 mg TRANSDERMA DAILY [facility] Last Admin: 10/10/21 08:19 Dose: 14 mg Documented by: Oxycodone HCl (Oxycodone Hcl Immed Release 5 Mg Tablet) 10 mg PO Q6H PRN PRN Reason: Pain, Severe (Pain Scale 7-10) Last Admin: 10/09/21 22:08 Dose: 10 mg Documented by: Warfarin Sodium (Warfarin Sodium 6 Mg Tablet) 6 mg PO DAILY@1800 [facility] Last Admin: 10/09/21 18:07 Dose: 6 mg Documented by: Time Spent With Patient Time: Total time spent is greater than 50% in coordination of care (as documente d) at patient's floor/unit and/or counseling patient: Time with patient: 15 - 24 minutes Quality Stroke Does the patient have a stroke diagnosis?: No VTE Prior VTE?: Yes VTE Risk Level:: Surgical - very high VTE Device Contraindication: Treatment Not Indicated (stasis ulcer RLE) VTE Drug Contraindication: N/A - Med Ordered
[2021-10-10] MEDS: oxyCODONE HCl Immed Release 5 MG TABLET 10 MG PO ×2 (12:28→18:29)
--- NOTE | 2021-10-10 15:09 | PC.NURSE ---
Pt was able to amb approx 50 this afternoon. short of breath with activity. congested cough. with white sputum. 02 SAT 89% ON ROOM AIR. 92% 2L CANULA.
--- NOTE | 2021-10-10 15:11 | HO.PM.IMPN ---
Subjective Subjective Date of Service: 10/10/21 <FAROOQ Smith - Last Filed: 10/10/21 15:24> 10/11/21 <Juan Miguel Valerio MD - Last Filed: 10/11/21 08:24> Interval History: seen and examined this morning follow up for medical management no overnight events reporting some abdominal pain tolerating regular diet, passing gas <FAROOQ Smith - Last Filed: 10/10/21 15:24> Review of Systems Review of Systems: Yes all other systems are reviewed and are negative <FAROOQ Smith - Last Filed: 10/10/21 15:24> Constitutional Constitutional: Denies chills and Denies fever(s) <FAROOQ Smith - Last Filed: 10/10/21 15:24> Cardiovascular Cardiovascular: Denies chest pain <FAROOQ Smith - Last Filed: 10/10/21 15:24> Gastrointestinal Gastrointestinal: Denies abdominal pain <FAROOQ Smith - Last Filed: 10/10/21 15:24> Physical Exam Vital Signs: Vital Signs: Last Vital Signs Temp 96.7 F L 10/10/21 15:01 Pulse 89 10/10/21 15:01 Resp 18 10/10/21 15:01 BP 111/63 10/10/21 15:01 Pulse Ox 93 10/10/21 15:01 BMI result Body Mass Index 49.9 <FAROOQ Smith - Last Filed: 10/10/21 15:24> Const: General: no acute distress, alert and awake <FAROOQ Smith - Last Filed: 10/10/21 15:24> Nutritional Appearance: obese <FAROOQ Smith - Last Filed: 10/10/21 15:24> Orientation/consciousness: patient oriented x3 <FAROOQ Smith - Last Filed: 10/10/21 15:24> HENMT: Head: Yes normocephalic and Yes atraumatic <FAROOQ Smith - Last Filed: 10/10/21 15:24> Eyes: Sclerae: sclerae normal <FAROOQ Smith - Last Filed: 10/10/21 15:24> Resp: Other: Difficult to assess, diminished breath sounds bilaterally, appears mildly dyspneic <FAROOQ Smith Last Filed: 10/10/21 15:24> Effort & Inspection: able to speak in complete sentences and no respiratory distress <FAROOQ Smith Last Filed: 10/10/21 15:24> Cardio: Rate: regular rate <FAROOQ Smith - Last Filed: 10/10/21 15:24> Rhythm: regular rhythm <FAROOQ Smith - Last Filed: 10/10/21 15:24> GI: Other: anushka-incisional tenderness SANDRA in place, scant serosanguineous drainage <FAROOQ Smith - Last Filed: 10/10/21 15:24> Palpation (GI): Soft to palpation and nontender <FAROOQ Smith - Last Filed: 10/10/21 15:24> Neuro: General: patient oriented x3 <FAROOQ Smith Last Filed: 10/10/21 15:24> Cranial nerves: Yes CN's II-XII intact bilaterally and Yes Bilaterally intact EOM present <FAROOQ Smith Last Filed: 10/10/21 15:24> Extrem: Other: Able to move all 4 extremities spontaneously; chronic skin changes lower legs; RLE chronic ulcer with no erythema; rle swelling >lle <FAROOQ Smith Last Filed: 10/10/21 15:24> Objective Data Active Medications Albuterol/Ipratropium (Albuterol/Iprat 2.5/0.5mg 3 Ml Ampul.Neb) 3 ml INHALE RQ4H WHILE AWAKE [facility] Last Admin: 10/10/21 11:13 Dose: 3 ml Documented by: AWA Atorvastatin Calcium (Atorvastatin Calcium 40 Mg Tablet) 40 mg PO BEDTIME [facility] Docusate Sodium (Docusate Sodium 100 Mg Capsule) 100 mg PO BID [facility] Last Admin: 10/10/21 08:19 Dose: 100 mg Documented by: HIRO Enoxaparin Sodium (Enoxaparin Sodium 80 Mg/0.8 Ml Syringe) 160 mg SUBCUT Q12H [facility] Last Admin: 10/10/21 13:55 Dose: 160 mg Documented by: HIRO Fluticasone/Vilanterol (Fluticasone/Vilanterol 100/25 Blst.W.Dev) 1 puff INHALE RDAILY [facility] Last Admin: 10/10/21 07:45 Dose: 1 puff Documented by: SHADIARICDianna Lactic Acid (Ammonium Lactate 12 % Cream 140 Gm Tube) 1 appl TOPICAL BID PRN; Protocol PRN Reason: Rash Lisinopril (Lisinopril 40 Mg Tablet) 40 mg PO DAILY [facility]; Protocol Last Admin: 10/10/21 08:19 Dose: 40 mg Documented by: HIRO Methadone HCl (Methadone Hcl 20 Mg/2 Ml Oral.Conc) 135 mg PO DAILY [facility] Last Admin: 10/10/21 08:20 Dose: 135 mg Documented by: HIRO Morphine Sulfate (Morphine Sulfate 2 Mg/Ml Cartridge) 4 mg IVPUSH Q3H PRN; Protocol PRN Reason: Pain, Severe (Pain Scale 7-10) Last Admin: 10/10/21 08:21 Dose: 4 mg Documented by: HIRO Naloxone HCl (Naloxone Hcl 0.4 Mg/Ml Vial) 0.2 mg IVPUSH Q2M PRN PRN Reason: Excessive sedation or RR < 8 Nicotine (Nicotine 14 Mg Patch.Td24) 14 mg TRANSDERMA DAILY [facility] Last Admin: 10/10/21 08:19 Dose: 14 mg Documented by: HIRO Oxycodone HCl (Oxycodone Hcl Immed Release 5 Mg Tablet) 10 mg PO Q6H PRN PRN Reason: Pain, Severe (Pain Scale 7-10) Last Admin: 10/10/21 12:28 Dose: 10 mg Documented by: HIRO Warfarin Sodium (Warfarin Sodium 6 Mg Tablet) 6 mg PO DAILY@1800 [facility] Last Admin: 10/09/21 18:07 Dose: 6 mg Documented by: LYSJace <FAROOQ Smith - Last Filed: 10/10/21 15:24> Labs CBC & Chem 7: : 10/10/21 06:22 10/10/21 06:22 <FAROOQ Smith - Last Filed: 10/10/21 15:24> Labs: Laboratory Results - last 24 hr 10/10/21 10/10/21 10/10/21 06:22 06:22 06:22 MCV 98.0 MCH 31.7 MCHC 32.4 RDW 13.4 Plt Count 196 MPV 9.2 L Absolute Nucleated RBC 0.000 Nucleated RBC % (auto) 0.0 PT 16.2 H INR 1.4 H Anion Gap 12 Estim Creat Clear Calc 136.0 Estimated GFR > 60 Random Glucose 92 Calcium 8.2 L <FAROOQ Smith - Last Filed: 10/10/21 15:24> Assessment and Plan (1) Obesity hypoventilation syndrome: Status: Acute <FAROOQ Smith - Last Filed: 10/10/21 15:24> (2) Morbid obesity due to excess calories: Status: Acute <FAROOQ Smith - Last Filed: 10/10/21 15:24> (3) Narcotic addiction: Status: Acute <FAROOQ Smith - Last Filed: 10/10/21 15:24> Assessment and Plan: This is a 62-year-old morbidly obese male with history of asthma, opiate dependence on methadone, morbid obesity, probable undiagnosed KEILA, HTN, HLD who presented to the emergency department with abdominal pain found to have incarcerated right inguinal hernia, scrotal hernia containing small bowel and cecum status post emergent laparotomy with repair with mesh initially remained intubated in the ICU. Extubated October 08 and downgraded to medical floor. Acute respiratory failure hypoxia. oxygen requirements decreasing Multifactorial, secondary to underlying COPD, obesity hyperventilation and probable undiagnosed KEILA Wean oxygen as tolerated POD3 s/p repair of incarcerated right inguinal hernia, scrotal hernia with mesh Management per Surgical Service RLE swelling US to r/t dvt h/o recurrent DVT/PE. INR 1.4 on coumadin at baseline continue therapeutic Lovenox until inr therapeutic continue Coumadin with goal inr 2-3 chronic back pain/Opiate dependence Continue methadone Hyperlipidemia Continue statin presumed COPD Continue home Breo continue breathing treatments HTN resume lisinopril lasix on hold Tobacco dependence Smoking cessation advised NRT Chronic venous stasis/chronic wounds Continue ammonium lactate cream Local wound care Morbid obesity BMI 49.9 DVT prophylaxis-Lovenox Code status-full code Attending-dr. valerio <FAROOQ Smith - Last Filed: 10/10/21 15:24> Quality Stroke Does the patient have a stroke diagnosis?: No <FAROOQ Smith - Last Filed: 10/10/21 15:24> VTE Prior VTE?: Yes <FAROOQ Smith - Last Filed: 10/10/21 15:24> VTE Risk Level:: Surgical - very high <FAROOQ Smith - Last Filed: 10/10/21 15:24> VTE Device Contraindication: Treatment Not Indicated (stasis ulcer RLE) <FAROOQ Smith - Last Filed: 10/10/21 15:24> VTE Drug Contraindication: N/A - Med Ordered <FAROOQ Smith - Last Filed: 10/10/21 15:24>
[2021-10-10] MEDS: Warfarin Sodium 6 MG TABLET PO (18:29)
[2021-10-10] MEDS: Sennosides 8.6 MG TABLET PO (20:40)
[2021-10-11] VITALS (7 sets, daily range): BP systolic 116–141; BP diastolic 66–76; PULSE 77–86; RESP 17–21; TEMP 36.2–36.9; O2SAT 92–97
[2021-10-11] MEDS: Morphine Sulfate 2 MG/ML CARTRIDGE 4 MG IVPUSH ×4 (00:15→23:33)
--- NOTE | 2021-10-11 01:49 | PC.NURSE ---
Patient reports productive cough, states he has had this for months, at times unable to sleep at home due to inability to clear chest congestion. Patient is expectorating at the bedside. 97%2L oxygen. no SOB at rest.
[2021-10-11] MEDS: Enoxaparin Sodium 80 MG/0.8 ML SYRINGE 160 MG SUBCUT ×2 (04:54→14:41)
[2021-10-11 06:31] LABS: INTERNATIONAL NORM RATIO 1.7 (0.9-1.1); Prothrombin Time 19.6 SEC (9.9-13.0)
[2021-10-11] MEDS: Docusate Sodium 100 MG CAPSULE PO ×2 (08:13→19:49)
[2021-10-11] MEDS: methADONE HCl 20 MG/2 ML ORAL.CONC 135 MG PO (08:13)
[2021-10-11] MEDS: lisinopriL 40 MG TABLET PO (08:13)
[2021-10-11] MEDS: Nicotine 14 MG PATCH.TD24 TRANSDERMA (08:14)
--- NOTE | 2021-10-11 10:18 | PM.PNGS ---
Subjective Subjective Date of Service: 10/11/21 Interval history: says he continues to feel better good oral intake passing flatus, no BMs Physical Exam Vital Signs: Vital Signs: Last Vital Signs Temp 97.1 F 10/11/21 07:05 Pulse 82 10/11/21 07:05 Resp 21 H 10/11/21 07:05 BP 129/66 10/11/21 07:05 Pulse Ox 92 10/11/21 07:05 BMI result Body Mass Index 49.9 Const: General: comfortable and no acute distress Resp: Effort & Inspection: normal respiratory effort Cardio: Rate: regular rate GI: Other: obese, soft; incision clean, SANDRA - scanty clear output; scrotum on right with edema Objective Data Active Medications Albuterol/Ipratropium (Albuterol/Iprat 2.5/0.5mg 3 Ml Ampul.Neb) 3 ml INHALE RQ4H WHILE AWAKE [facility] Last Admin: 10/11/21 07:33 Dose: Not Given Documented by: BALDEV Non-Admin Reason: Patient Refused Atorvastatin Calcium (Atorvastatin Calcium 40 Mg Tablet) 40 mg PO BEDTIME [facility] Docusate Sodium (Docusate Sodium 100 Mg Capsule) 100 mg PO BID [facility] Last Admin: 10/11/21 08:13 Dose: 100 mg Documented by: HEIDY Enoxaparin Sodium (Enoxaparin Sodium 80 Mg/0.8 Ml Syringe) 160 mg SUBCUT Q12H [facility] Last Admin: 10/11/21 04:54 Dose: 160 mg Documented by: CHAR Fluticasone/Vilanterol (Fluticasone/Vilanterol 100/25 Blst.W.Dev) 1 puff INHALE RDAILY [facility] Last Admin: 10/11/21 07:33 Dose: Not Given Documented by: BALDEV Non-Admin Reason: Patient Refused Lactic Acid (Ammonium Lactate 12 % Cream 140 Gm Tube) 1 appl TOPICAL BID PRN; Protocol PRN Reason: Rash Lisinopril (Lisinopril 40 Mg Tablet) 40 mg PO DAILY [facility]; Protocol Last Admin: 10/11/21 08:13 Dose: 40 mg Documented by: HEIDY Methadone HCl (Methadone Hcl 20 Mg/2 Ml Oral.Conc) 135 mg PO DAILY [facility] Last Admin: 10/11/21 08:13 Dose: 135 mg Documented by: HEIDY Morphine Sulfate (Morphine Sulfate 2 Mg/Ml Cartridge) 4 mg IVPUSH Q3H PRN; Protocol PRN Reason: Pain, Severe (Pain Scale 7-10) Last Admin: 10/11/21 08:13 Dose: 4 mg Documented by: HEIDY Naloxone HCl (Naloxone Hcl 0.4 Mg/Ml Vial) 0.2 mg IVPUSH Q2M PRN PRN Reason: Excessive sedation or RR < 8 Nicotine (Nicotine 14 Mg Patch.Td24) 14 mg TRANSDERMA DAILY [facility] Last Admin: 10/11/21 08:14 Dose: 14 mg Documented by: HEIDY Oxycodone HCl (Oxycodone Hcl Immed Release 5 Mg Tablet) 10 mg PO Q6H PRN PRN Reason: Pain, Severe (Pain Scale 7-10) Last Admin: 10/10/21 18:29 Dose: 10 mg Documented by: ARLINE Senna (Sennosides 8.6 Mg Tablet) 8.6 mg PO BEDTIME PRN PRN Reason: Constipation Last Admin: 10/10/21 20:40 Dose: 8.6 mg Documented by: ARLINE Warfarin Sodium (Warfarin Sodium 6 Mg Tablet) 6 mg PO DAILY@1800 [facility] Last Admin: 10/10/21 18:29 Dose: 6 mg Documented by: ARLINE Labs CBC & Chem 7: 10/10/21 06:22 10/10/21 06:22 Labs: Laboratory Results - last 24 hr 10/11/21 06:12 PT 19.6 H INR 1.7 H Procedures Date of Service Date of Service: 10/11/21 Progress Note: A&P Assessment and plan (1) Incarcerated right inguinal hernia: Status: Acute Assessment and Plan: S/P repair and reduction of incarcerated RIH continues to improve pain minimal dressings changed - incision clean, SANDRA clear, scrotum with edema keep SANDRA in place pain mgt OOB clinically looks well Fall Risk Details Current Medications: Current Medications Albuterol/Ipratropium (Albuterol/Iprat 2.5/0.5mg 3 Ml Ampul.Neb) 3 ml INHALE RQ4H WHILE AWAKE [facility] Last Admin: 10/11/21 07:33 Dose: Not Given Documented by: Atorvastatin Calcium (Atorvastatin Calcium 40 Mg Tablet) 40 mg PO BEDTIME [facility] Docusate Sodium (Docusate Sodium 100 Mg Capsule) 100 mg PO BID [facility] Last Admin: 10/11/21 08:13 Dose: 100 mg Documented by: Enoxaparin Sodium (Enoxaparin Sodium 80 Mg/0.8 Ml Syringe) 160 mg SUBCUT Q12H [facility] Last Admin: 10/11/21 04:54 Dose: 160 mg Documented by: Fluticasone/Vilanterol (Fluticasone/Vilanterol 100/25 Blst.W.Dev) 1 puff INHALE RDAILY [facility] Last Admin: 10/11/21 07:33 Dose: Not Given Documented by: Lactic Acid (Ammonium Lactate 12 % Cream 140 Gm Tube) 1 appl TOPICAL BID PRN; Protocol PRN Reason: Rash Lisinopril (Lisinopril 40 Mg Tablet) 40 mg PO DAILY [facility]; Protocol Last Admin: 10/11/21 08:13 Dose: 40 mg Documented by: Methadone HCl (Methadone Hcl 20 Mg/2 Ml Oral.Conc) 135 mg PO DAILY [facility] Last Admin: 10/11/21 08:13 Dose: 135 mg Documented by: Morphine Sulfate (Morphine Sulfate 2 Mg/Ml Cartridge) 4 mg IVPUSH Q3H PRN; Protocol PRN Reason: Pain, Severe (Pain Scale 7-10) Last Admin: 10/11/21 08:13 Dose: 4 mg Documented by: Naloxone HCl (Naloxone Hcl 0.4 Mg/Ml Vial) 0.2 mg IVPUSH Q2M PRN PRN Reason: Excessive sedation or RR < 8 Nicotine (Nicotine 14 Mg Patch.Td24) 14 mg TRANSDERMA DAILY [facility] Last Admin: 10/11/21 08:14 Dose: 14 mg Documented by: Oxycodone HCl (Oxycodone Hcl Immed Release 5 Mg Tablet) 10 mg PO Q6H PRN PRN Reason: Pain, Severe (Pain Scale 7-10) Last Admin: 10/10/21 18:29 Dose: 10 mg Documented by: Senna (Sennosides 8.6 Mg Tablet) 8.6 mg PO BEDTIME PRN PRN Reason: Constipation Last Admin: 10/10/21 20:40 Dose: 8.6 mg Documented by: Warfarin Sodium (Warfarin Sodium 6 Mg Tablet) 6 mg PO DAILY@1800 [facility] Last Admin: 10/10/21 18:29 Dose: 6 mg Documented by: Time Spent With Patient Time: Total time spent is greater than 50% in coordination of care (as documented) at patient's floor/unit and/or counseling patient: Time with patient: 15 - 24 minutes Quality Stroke Does the patient have a stroke diagnosis?: No VTE Prior VTE?: Yes VTE Risk Level:: Surgical - very high VTE Device Contraindication: Treatment Not Indicated (stasis ulcer RLE) VTE Drug Contraindication: N/A - Med Ordered
--- NOTE | 2021-10-11 11:39 | P.PNIM_ITS ---
Subjective Subjective Date of Service: 10/11/21 <FAROOQ Smith - Last Filed: 10/11/21 11:49> 10/12/21 <Juan Miguel Valerio MD - Last Filed: 10/12/21 09:01> Interval History: seen and examined this morning follow up, medical consultation no overnight events no shortness of breath; having some cough with clear to light yellow phlegm production similar to baseline. no fever/chills <FAROOQ Smith - Last Filed: 10/11/21 11:49> Review of Systems Review of Systems: Yes all other systems are reviewed and are negative <FAROOQ Smith - Last Filed: 10/11/21 11:49> Constitutional Constitutional: Denies chills and Denies fever(s) <FAROOQ Smith - Last Filed: 10/11/21 11:49> Cardiovascular Cardiovascular: Denies chest pain <FAROOQ Smith - Last Filed: 10/11/21 11:49> Physical Exam Vital Signs: Vital Signs: Last Vital Signs Temp 97.7 F 10/11/21 11:14 Pulse 83 10/11/21 11:14 Resp 19 10/11/21 11:14 BP 136/76 10/11/21 11:14 Pulse Ox 92 10/11/21 11:14 BMI result Body Mass Index 49.9 <FAROOQ Smith - Last Filed: 10/11/21 11:49> Const: General: comfortable, no acute distress, alert and awake <FAROOQ Smith - Last Filed: 10/11/21 11:49> Nutritional Appearance: obese <FAROOQ Smith - Last Filed: 10/11/21 11:49> Orientation/consciousness: patient oriented x3 <FAROOQ Smith - Last Filed: 10/11/21 11:49> HENMT: Head: Yes normocephalic and Yes atraumatic <FAROOQ Smith - Last Filed: 10/11/21 11:49> Eyes: Sclerae: sclerae normal <FAROOQ Smith - Last Filed: 10/11/21 11:49> Resp: Other: diminished breath sounds bilaterally <FAROOQ Smith - Last Filed: 10/11/21 11:49> Effort & Inspection: able to speak in complete sentences and no respiratory distress <FAROOQ Smith - Last Filed: 10/11/21 11:49> Cardio: Other: distant heart sounds <FAROOQ Smith - Last Filed: 10/11/21 11:49> Rate: regular rate <FAROOQ Smith - Last Filed: 10/11/21 11:49> Rhythm: regular rhythm <FAROOQ Smith - Last Filed: 10/11/21 11:49> GI: Other: obese anushka-incisional tenderness SANDRA in place, scant serosanguineous drainage <FAROOQ Smith - Last Filed: 10/11/21 11:49> Palpation (GI): Soft to palpation and nontender <FAROOQ Smith - Last Filed: 10/11/21 11:49> Neuro: General: patient oriented x3 <FAROOQ Smith - Last Filed: 10/11/21 11:49> Cranial nerves: Yes CN's II-XII intact bilaterally and Yes Bilaterally intact EOM present <FAROOQ Smith - Last Filed: 10/11/21 11:49> Extrem: Other: Able to move all 4 extremities spontaneously; chronic skin changes b/l lower legs; RLE chronic ulcer with no erythema wrapped c/d/i dressing; rle swelling >lle <FAROOQ Smith - Last Filed: 10/11/21 11:49> Objective Data Active Medications Albuterol/Ipratropium (Albuterol/Iprat 2.5/0.5mg 3 Ml Ampul.Neb) 3 ml INHALE RQ4H WHILE AWAKE [facility] Last Admin: 10/11/21 11:24 Dose: Not Given Documented by: BALDEV Non-Admin Reason: Patient Refused Atorvastatin Calcium (Atorvastatin Calcium 40 Mg Tablet) 40 mg PO BEDTIME [facility] Docusate Sodium (Docusate Sodium 100 Mg Capsule) 100 mg PO BID [facility] Last Admin: 10/11/21 08:13 Dose: 100 mg Documented by: HEIDY Enoxaparin Sodium (Enoxaparin Sodium 80 Mg/0.8 Ml Syringe) 160 mg SUBCUT Q12H [facility] Last Admin: 10/11/21 04:54 Dose: 160 mg Documented by: CHAR Fluticasone/Vilanterol (Fluticasone/Vilanterol 100/25 Blst.W.Dev) 1 puff INHALE RDAILY [facility] Last Admin: 10/11/21 07:33 Dose: Not Given Documented by: BALDEV Non-Admin Reason: Patient Refused Lactic Acid (Ammonium Lactate 12 % Cream 140 Gm Tube) 1 appl TOPICAL BID PRN; Protocol PRN Reason: Rash Lisinopril (Lisinopril 40 Mg Tablet) 40 mg PO DAILY [facility]; Protocol Last Admin: 10/11/21 08:13 Dose: 40 mg Documented by: HEIDY Methadone HCl (Methadone Hcl 20 Mg/2 Ml Oral.Conc) 135 mg PO DAILY [facility] Last Admin: 10/11/21 08:13 Dose: 135 mg Documented by: HEIDY Morphine Sulfate (Morphine Sulfate 2 Mg/Ml Cartridge) 4 mg IVPUSH Q3H PRN; Protocol PRN Reason: Pain, Severe (Pain Scale 7-10) Last Admin: 10/11/21 08:13 Dose: 4 mg Documented by: HEIDY Naloxone HCl (Naloxone Hcl 0.4 Mg/Ml Vial) 0.2 mg IVPUSH Q2M PRN PRN Reason: Excessive sedation or RR < 8 Nicotine (Nicotine 14 Mg Patch.Td24) 14 mg TRANSDERMA DAILY [facility] Last Admin: 10/11/21 08:14 Dose: 14 mg Documented by: HEIDY Oxycodone HCl (Oxycodone Hcl Immed Release 5 Mg Tablet) 10 mg PO Q6H PRN PRN Reason: Pain, Severe (Pain Scale 7-10) Last Admin: 10/10/21 18:29 Dose: 10 mg Documented by: ARLINE Senna (Sennosides 8.6 Mg Tablet) 8.6 mg PO BEDTIME PRN PRN Reason: Constipation Last Admin: 10/10/21 20:40 Dose: 8.6 mg Documented by: ARLINE Warfarin Sodium (Warfarin Sodium 6 Mg Tablet) 6 mg PO DAILY@1800 [facility] Last Admin: 10/10/21 18:29 Dose: 6 mg Documented by: ARLINE <FAROOQ Smith - Last Filed: 10/11/21 11:49> Labs CBC & Chem 7: : 10/12/21 04:44 10/12/21 04:44 <FAROOQ Smith - Last Filed: 10/11/21 11:49> Labs: Laboratory Results - last 24 hr 10/11/21 06:12 PT 19.6 H INR 1.7 H <FAROOQ Smith - Last Filed: 10/11/21 11:49> Assessment and Plan (1) Obesity hypoventilation syndrome: Status: Acute <FAROOQ Smith - Last Filed: 10/11/21 11:49> (2) Morbid obesity due to excess calories: Status: Acute <FAROOQ Smith - Last Filed: 10/11/21 11:49> Assessment and Plan: This is a 62-year-old morbidly obese male with history of asthma, opiate dependence on methadone, morbid obesity, probable undiagnosed KEILA, HTN, HLD who presented to the emergency department with abdominal pain found to have incarcerated right inguinal hernia, scrotal hernia containing small bowel and cecum status post emergent laparotomy with repair with mesh initially remained intubated in the ICU. Extubated October 08 and downgraded to medical floor. Acute respiratory failure hypoxia. oxygen requirements decreasing Multifactorial, secondary to underlying COPD, obesity hyperventilation and probable undiagnosed KEILA no fever/leukocytosis to suggest infectious process Wean oxygen as tolerated POD4 s/p repair of incarcerated right inguinal hernia, scrotal hernia with mesh Management per Surgical Service RLE swelling US to r/t dvt pending although less likely since fully anticoagulated h/o recurrent DVT/PE. INR 1.7 today on coumadin at baseline continue therapeutic Lovenox until inr therapeutic continue Coumadin with goal inr 2-3 chronic back pain/Opiate dependence Continue methadone Hyperlipidemia Continue statin presumed COPD Continue home Breo continue breathing treatments probable undiagnosed KEILA has not followed through with sleep study rec outpatient sleep study for formal diagnosis HTN resume lisinopril lasix on hold Tobacco dependence Smoking cessation advised NRT Chronic venous stasis/chronic wounds Continue ammonium lactate cream Local wound care Morbid obesity BMI 49.9 DVT prophylaxis-Lovenox Code status-full code Attending-dr. valerio <FAROOQ Smith - Last Filed: 10/11/21 11:49> Quality Stroke Does the patient have a stroke diagnosis?: No <FAROOQ Smith - Last Filed: 10/11/21 11:49> VTE Prior VTE?: Yes <FAROOQ Smith - Last Filed: 10/11/21 11:49> VTE Risk Level:: Surgical - very high <FAROOQ Smith - Last Filed: 10/11/21 11:49> VTE Device Contraindication: Treatment Not Indicated (stasis ulcer RLE) <FAROOQ Smith - Last Filed: 10/11/21 11:49> VTE Drug Contraindication: N/A - Med Ordered <FAROOQ Smith - Last Filed: 10/11/21 11:49>
[2021-10-11] MEDS: Warfarin Sodium 6 MG TABLET PO (18:03)
--- NOTE | 2021-10-11 19:45 | PC.NURSE ---
P patient co nausea,coconstipation I Colace adm,senokot adm. ,Dr. Lucero notified of the above E-encouraged fluid intake and activity
[2021-10-11] MEDS: Sennosides 8.6 MG TABLET PO (19:48)
[2021-10-11] MEDS: oxyCODONE HCl Immed Release 5 MG TABLET 10 MG PO (19:48)
[2021-10-11] MEDS: polyethylene glycoL 3350 17 GM POWD.PACK PO (20:31)
[2021-10-11] MEDS: Milk of Magnesia 30 ML ORAL.SUSP PO (20:31)
[2021-10-11] MEDS: Albuterol/Iprat 2.5/0.5MG 3 ML AMPUL.NEB INHALE (20:41)
[2021-10-12] VITALS (8 sets, daily range): BP systolic 127–149; BP diastolic 66–82; PULSE 72–89; RESP 18; TEMP 36–37.3; O2SAT 92–96
[2021-10-12] MEDS: Morphine Sulfate 2 MG/ML CARTRIDGE 4 MG IVPUSH ×3 (03:09→22:50)
[2021-10-12] MEDS: Enoxaparin Sodium 80 MG/0.8 ML SYRINGE 160 MG SUBCUT (03:10)
[2021-10-12 04:57] LABS: MANUAL DIFF FLAG NO
[2021-10-12 05:01] LABS: Basophils Percent Auto 0.2 % (0-2); Eosinophils Absolute Auto 0.2 X10*3/uL (0.0-0.4); Hematocrit 30.1 % (42.0-52.0); Hemoglobin 9.8 g/dl (14.0-18.0); Imm Gran Abs Auto 0.05 X10*3/uL (0.00-0.03); Imm Gran Pct Auto 0.8 % (0.0-0.4); Lymphocytes Absolute Auto 0.7 X10*3/uL (1.2-4.9); Lymphocytes Percent Auto 11.4 % (20-40); Mean Corpuscular HGB Conc 32.6 g/dl (31.0-36.0); Mean Corpuscular Hemoglobin 31.4 pg (27.0-33.0); Mean Corpuscular Volume 96.5 fL (80.0-98.0); Monocytes Absolute Auto 0.6 X10*3/uL (0.1-1.2); Monocytes Percent Auto 9.7 % (2-11); Neutrophils Absolute Auto 4.8 x10*3/uL (2.0-8.3); Neutrophils Percent Auto 74.9 % (45-73); Platelet Count 214 X10*3/uL (160-400); Red Blood Count 3.12 X10*6/uL (4.60-5.80); Red Cell Distribution Width 13.2 % (11.0-16.0); White Blood Count 6.4 X10*3/uL (4.8-10.8)
[2021-10-12 05:05] LABS: INTERNATIONAL NORM RATIO 2.1 (0.9-1.1); Prothrombin Time 24.3 SEC (9.9-13.0)
[2021-10-12 05:34] LABS: Anion Gap 12 (12-20); Blood Urea Nitrogen 13 mg/dL (9-16); Calcium 8.4 mg/dL (8.4-10.2); Carbon Dioxide 29 mmol/L (22-29); Chloride 101 mmol/L (96-108); Creatinine Clr Calc Pharmacy 144.7; Estimated Glomerular Filt Rate > 60; Glucose Random 96 mg/dL (60-115); Potassium 3.9 mmol/L (3.3-5.1); Sodium 138 mmol/L (135-145)
[2021-10-12] MEDS: polyethylene glycoL 3350 17 GM POWD.PACK PO (07:06)
[2021-10-12] MEDS: Nicotine 14 MG PATCH.TD24 TRANSDERMA (07:06)
[2021-10-12] MEDS: oxyCODONE HCl Immed Release 5 MG TABLET 10 MG PO ×2 (07:06→12:55)
[2021-10-12] MEDS: Docusate Sodium 100 MG CAPSULE PO ×2 (07:07→22:50)
[2021-10-12] MEDS: methADONE HCl 20 MG/2 ML ORAL.CONC 135 MG PO (07:07)
[2021-10-12] MEDS: lisinopriL 40 MG TABLET PO (07:07)
[2021-10-12] MEDS: Fluticasone/Vilanterol 100/25 BLST.W.DEV 1 PUFF INHALE (09:17)
[2021-10-12] MEDS: Albuterol/Iprat 2.5/0.5MG 3 ML AMPUL.NEB INHALE ×4 (09:17→20:16)
--- NOTE | 2021-10-12 10:47 | P.PNIM_ITS ---
Subjective Subjective Date of Service: 10/12/21 Review of Systems Follow-up hernia repair Consultation Pain is well controlled Denies chest pain, nausea vomiting, diarrhea, shortness of breath All other systems are reviewed and are negative Physical Exam Verdana 4l Vital Signs: Verdana 4d Verdana 4d Vital Signs: Verdana 4d Verdana 4Bd Last Vital Signs Verdana 4d Residence Manager New 4d Residence Manager New 4d Temp 97.7 F 10/12/21 07:27 Residence Manager New 4d Pulse 80 10/12/21 07:27 Residence Manager NewNew 4d Resp 18 10/12/21 07:27 BP 137/72 10/12/21 07:27 Pulse Ox 95 10/12/21 07:27 BMI result Body Mass Index 49.9 Appearing in no acute distress lung sounds are clear to auscultation heart regular rate rhythm, clear S1, S2 positive bowel sounds, abdomen is soft, nontender neuro patient is alert x3, no focal deficits Surgical incision not visualized Objective Data Active Medications Albuterol/Ipratropium (Albuterol/Iprat 2.5/0.5mg 3 Ml Ampul.Neb) 3 ml INHALE RQ4H WHILE AWAKE [facility] Last Admin: 10/12/21 09:17 Dose: 3 ml Documented by: BANDAR Atorvastatin Calcium (Atorvastatin Calcium 40 Mg Tablet) 40 mg PO BEDTIME [facility] Docusate Sodium (Docusate Sodium 100 Mg Capsule) 100 mg PO BID [facility] Last Admin: 10/12/21 07:07 Dose: 100 mg Documented by: BHUPENDRA Fluticasone/Vilanterol (Fluticasone/Vilanterol 100/25 Blst.W.Dev) 1 puff INHALE RDAILY [facility] Last Admin: 10/12/21 09:17 Dose: 1 puff Documented by: BANDAR Lactic Acid (Ammonium Lactate 12 % Cream 140 Gm Tube) 1 appl TOPICAL BID PRN; Protocol PRN Reason: Rash Lisinopril (Lisinopril 40 Mg Tablet) 40 mg PO DAILY [facility]; Protocol Last Admin: 10/12/21 07:07 Dose: 40 mg Documented by: BHUPENDRA Methadone HCl (Methadone Hcl 20 Mg/2 Ml Oral.Conc) 135 mg PO DAILY [facility] Last Admin: 10/12/21 07:07 Dose: 135 mg Documented by: BHUPENDRA Morphine Sulfate (Morphine Sulfate 2 Mg/Ml Cartridge) 4 mg IVPUSH Q3H PRN; Protocol PRN Reason: Pain, Severe (Pain Scale 7-10) Last Admin: 10/12/21 03:09 Dose: 4 mg Documented by: LAURA Naloxone HCl (Naloxone Hcl 0.4 Mg/Ml Vial) 0.2 mg IVPUSH Q2M PRN PRN Reason: Excessive sedation or RR < 8 Nicotine (Nicotine 14 Mg Patch.Td24) 14 mg TRANSDERMA DAILY [facility] Last Admin: 10/12/21 07:06 Dose: 14 mg Documented by: BHUPENDRA Ondansetron HCl (Ondansetron Hcl 4 Mg/2 Ml Vial) 4 mg IVPUSH Q8H PRN PRN Reason: Nausea and Vomiting Oxycodone HCl (Oxycodone Hcl Immed Release 5 Mg Tablet) 10 mg PO Q6H PRN PRN Reason: Pain, Severe (Pain Scale 7-10) Last Admin: 10/12/21 07:06 Dose: 10 mg Documented by: BHUPENDRA Polyethylene Glycol (Polyethylene Glycol 3350 17 Gm Powd.Pack) 17 gm PO DAILY [facility] Last Admin: 10/12/21 07:06 Dose: 17 gm Documented by: BHUPENDRA Senna (Sennosides 8.6 Mg Tablet) 8.6 mg PO BEDTIME PRN PRN Reason: Constipation Last Admin: 10/11/21 19:48 Dose: 8.6 mg Documented by: ARLINE Warfarin Sodium (Warfarin Sodium 6 Mg Tablet) 6 mg PO DAILY@1800 [facility] Last Admin: 10/11/21 18:03 Dose: 6 mg Documented by: ARLINE Labs CBC & Chem 7: 10/12/21 04:44 10/12/21 04:44 Labs: Laboratory Results - last 24 hr 10/12/21 10/12/21 10/12/21 04:44 04:44 04:44 MCV 96.5 MCH 31.4 MCHC 32.6 RDW 13.2 Plt Count 214 MPV 9.0 L Immature Gran % (Auto) 0.8 H Neut % (Auto) 74.9 H Lymph % (Auto) 11.4 L [place] % (Auto) 9.7 Eos % (Auto) 3.0 Baso % (Auto) 0.2 Lymph # (Auto) 0.7 L [place] # (Auto) 0.6 Eos # (Auto) 0.2 Baso # (Auto) 0.0 Abs Immat Gran (auto) 0.05 H Absolute Neuts (auto) 4.8 Absolute Nucleated RBC 0.000 Nucleated RBC % (auto) 0.0 PT 24.3 H INR 2.1 H Anion Gap 12 Estim Creat Clear Calc 144.7 Estimated GFR > 60 Random Glucose 96 Calcium 8.4 Microbiology Microbiology Results: Microbiology 10/07/21 05:05 Blood Culture - Final Blood - Venous No growth after 5 days. 10/07/21 05:05 Blood Culture - Final Blood - Venous No growth after 5 days. Assessment and Plan (1) Obesity hypoventilation syndrome: Status: Acute (2) Morbid obesity due to excess calories: Status: Acute (3) Asthma: Status: Acute (4) Narcotic addiction: Status: Acute (5) Acute and chronic respiratory failure: Status: Acute Assessment and Plan: 62-year-old morbidly obese male with history of asthma, opiate dependence on methadone, morbid obesity, probable undiagnosed KEILA, HTN, HLD who presented to the emergency department with abdominal pain found to have incarcerated right inguinal hernia, scrotal hernia containing small bowel and cecum status post emergent laparotomy with repair with mesh initially remained intubated in the ICU.? Extubated October 08 and downgraded to medical floor. Acute respiratory failure hypoxia. oxygen requirements decreasing Multifactorial, secondary to underlying COPD, obesity hyperventilation and probable undiagnosed KEILA no fever/leukocytosis to suggest infectious process Wean oxygen as tolerated POD4 s/p repair of incarcerated right inguinal hernia, scrotal hernia with mesh Management per Surgical Service RLE swelling US to r/t lower ext negative for acute DVT h/o recurrent DVT/PE. INR 1.7 today on coumadin at baseline INR 2.1 today, Lovenox bridge stopped Chronic back pain/Opiate dependence Continue methadone Hyperlipidemia Continue statin presumed COPD Continue home Breo continue breathing treatments probable undiagnosed KEILA has not followed through with sleep study rec outpatient sleep study for formal diagnosis HTN resume lisinopril lasix on hold Tobacco dependence Smoking cessation advised NRT Chronic venous stasis/chronic wounds Continue ammonium lactate cream Local wound care Morbid obesity BMI 49.9 Discussed the importance weight management as this may worsen other comorbidities DVT prophylaxis warfarin Code status-full code Attending Dr. Valerio Continue care as per general surgery, will sign off. Quality Stroke Does the patient have a stroke diagnosis?: No VTE Prior VTE?: Yes VTE Risk Level:: Surgical - very high VTE Device Contraindication: Treatment Not Indicated (stasis ulcer RLE) VTE Drug Contraindication: N/A - Med Ordered
--- NOTE | 2021-10-12 11:13 | PM.PNGS ---
Subjective Subjective Date of Service: 10/12/21 <Elizabeth Ca PA-C - Last Filed: 10/12/21 11:19> 10/12/21 <Venkatesh Wilson MD - Last Filed: 10/12/21 12:16> Interval history: Had multiple hard, firm bowel movements over the weekend. Also had episode of nausea and vomiting after eating. Denies further episode following this and has been tolerating solid diet. OOB to chair today. Reports decrease in respiratory secretions since being here. <Elizabeth Ca PA-C - Last Filed: 10/12/21 11:19> Physical Exam Vital Signs: Vital Signs: Last Vital Signs Temp 97.7 F 10/12/21 07:27 Pulse 80 10/12/21 07:27 Resp 18 10/12/21 07:27 BP 137/72 10/12/21 07:27 Pulse Ox 95 10/12/21 07:27 BMI result Body Mass Index 49.9 <Elizabeth Ca PA-C - Last Filed: 10/12/21 11:19> Const: General: comfortable, no acute distress and alert <Elizabeth Ca PA-C - Last Filed: 10/12/21 11:19> Orientation/consciousness: patient oriented x3 <Elizabeth Ca PA-C - Last Filed: 10/12/21 11:19> GI: Other: SANDRA with scanty serosanguineous drainage <Elizabeth Ca PA-C - Last Filed: 10/12/21 11:19> Inspection: No distended, Yes incision (clean, dressing clean) and Yes obesity <Elizabeth Ca PA-C - Last Filed: 10/12/21 11:19> Palpation (GI): Soft to palpation and nontender <Elizabeth Ca PA-C - Last Filed: 10/12/21 11:19> Skin: General skin exam: no rashes or lesions noted <Elizabeth Ca PA-C - Last Filed: 10/12/21 11:19> Neuro: General: patient oriented x3 <Elizabeth Ca PA-C - Last Filed: 10/12/21 11:19> Objective Data Active Medications Albuterol/Ipratropium (Albuterol/Iprat 2.5/0.5mg 3 Ml Ampul.Neb) 3 ml INHALE RQ4H WHILE AWAKE [facility] Last Admin: 10/12/21 09:17 Dose: 3 ml Documented by: BANDAR Atorvastatin Calcium (Atorvastatin Calcium 40 Mg Tablet) 40 mg PO BEDTIME [facility] Docusate Sodium (Docusate Sodium 100 Mg Capsule) 100 mg PO BID [facility] Last Admin: 10/12/21 07:07 Dose: 100 mg Documented by: BHUPENDRA Fluticasone/Vilanterol (Fluticasone/Vilanterol 100/25 Blst.W.Dev) 1 puff INHALE RDAILY [facility] Last Admin: 10/12/21 09:17 Dose: 1 puff Documented by: BANDAR Lactic Acid (Ammonium Lactate 12 % Cream 140 Gm Tube) 1 appl TOPICAL BID PRN; Protocol PRN Reason: Rash Lisinopril (Lisinopril 40 Mg Tablet) 40 mg PO DAILY [facility]; Protocol Last Admin: 10/12/21 07:07 Dose: 40 mg Documented by: BHUPENDRA Methadone HCl (Methadone Hcl 20 Mg/2 Ml Oral.Conc) 135 mg PO DAILY [facility] Last Admin: 10/12/21 07:07 Dose: 135 mg Documented by: BHUPENDRA Morphine Sulfate (Morphine Sulfate 2 Mg/Ml Cartridge) 4 mg IVPUSH Q3H PRN; Protocol PRN Reason: Pain, Severe (Pain Scale 7-10) Last Admin: 10/12/21 03:09 Dose: 4 mg Documented by: LAURA Naloxone HCl (Naloxone Hcl 0.4 Mg/Ml Vial) 0.2 mg IVPUSH Q2M PRN PRN Reason: Excessive sedation or RR < 8 Nicotine (Nicotine 21 Mg Patch.Td24) 21 mg TRANSDERMA DAILY [facility] Ondansetron HCl (Ondansetron Hcl 4 Mg/2 Ml Vial) 4 mg IVPUSH Q8H PRN PRN Reason: Nausea and Vomiting Oxycodone HCl (Oxycodone Hcl Immed Release 5 Mg Tablet) 10 mg PO Q6H PRN PRN Reason: Pain, Severe (Pain Scale 7-10) Last Admin: 10/12/21 07:06 Dose: 10 mg Documented by: BHUPENDRA Polyethylene Glycol (Polyethylene Glycol 3350 17 Gm Powd.Pack) 17 gm PO DAILY [facility] Last Admin: 10/12/21 07:06 Dose: 17 gm Documented by: BHUPENDRA Senna (Sennosides 8.6 Mg Tablet) 8.6 mg PO BEDTIME PRN PRN Reason: Constipation Last Admin: 10/11/21 19:48 Dose: 8.6 mg Documented by: ARLINE Warfarin Sodium (Warfarin Sodium 6 Mg Tablet) 6 mg PO DAILY@1800 [facility] Last Admin: 10/11/21 18:03 Dose: 6 mg Documented by: ARLINE <Elizabeth Ca PA-C - Last Filed: 10/12/21 11:19> Labs CBC & Chem 7: : 10/12/21 04:44 10/12/21 04:44 <Elizabeth Ca PA-C - Last Filed: 10/12/21 11:19> Labs: Laboratory Results - last 24 hr 10/12/21 10/12/21 10/12/21 04:44 04:44 04:44 MCV 96.5 MCH 31.4 MCHC 32.6 RDW 13.2 Plt Count 214 MPV 9.0 L Immature Gran % (Auto) 0.8 H Neut % (Auto) 74.9 H Lymph % (Auto) 11.4 L [place] % (Auto) 9.7 Eos % (Auto) 3.0 Baso % (Auto) 0.2 Lymph # (Auto) 0.7 L [place] # (Auto) 0.6 Eos # (Auto) 0.2 Baso # (Auto) 0.0 Abs Immat Gran (auto) 0.05 H Absolute Neuts (auto) 4.8 Absolute Nucleated RBC 0.000 Nucleated RBC % (auto) 0.0 PT 24.3 H INR 2.1 H Anion Gap 12 Estim Creat Clear Calc 144.7 Estimated GFR > 60 Random Glucose 96 Calcium 8.4 <Elizabeth Ca PA-C - Last Filed: 10/12/21 11:19> Microbiology Microbiology Results: Microbiology 10/07/21 05:05 Blood Culture - Final Blood - Venous No growth after 5 days. 10/07/21 05:05 Blood Culture - Final Blood - Venous No growth after 5 days. <Elizabeth Ca PA-C - Last Filed: 10/12/21 11:19> Procedures Date of Service Date of Service: 10/12/21 <Elizabeth Ca PA-C - Last Filed: 10/12/21 11:19> Progress Note: A&P Assessment and plan (1) Incarcerated right inguinal hernia: Status: Acute <Elizabeth Ca PA-C - Last Filed: 10/12/21 11:19> (2) Small bowel obstruction: Status: Acute <Elizabeth Ca PA-C - Last Filed: 10/12/21 11:19> Assessment and Plan: S/p repair of incarcerated right inguinal hernia, scrotal hernia containing small bowel and cecum with large Ventralex mesh. Doing fairly well post op from surgical standpoint. Now tolerating diet, moving bowels. Incision site clean and SANDRA with scanty serosanguineous drainage. Encouraged OOB/ambulation and IS use. PT consult to facilitate dispo planning. Continue to wean O2. Hopeful discharge in next couple of days.? <Elizabeth Ca PA-C - Last Filed: 10/12/21 11:19> S/p repair of incarcerated right inguinal hernia, scrotal hernia containing small bowel and cecum with large Ventralex mesh. Doing fairly well post op from surgical standpoint. Now tolerating diet, moving bowels. Incision site clean and SANDRA with scanty serosanguineous drainage. Encouraged OOB/ambulation and IS use. PT consult to facilitate dispo planning. Continue to wean O2. Hopeful discharge in next couple of days.? Patient seems more comfortable. Plan discharge to home with VNA; PT evaluation requested. SANDRA output 15-20 mls /day. OK to remove drain. <Venkatesh Wilson MD - Last Filed: 10/12/21 12:16> Fall Risk Details Current Medications: Current Medications Albuterol/Ipratropium (Albuterol/Iprat 2.5/0.5mg 3 Ml Ampul.Neb) 3 ml INHALE RQ4H WHILE AWAKE [facility] Last Admin: 10/12/21 09:17 Dose: 3 ml Documented by: Atorvastatin Calcium (Atorvastatin Calcium 40 Mg Tablet) 40 mg PO BEDTIME [facility] Docusate Sodium (Docusate Sodium 100 Mg Capsule) 100 mg PO BID [facility] Last Admin: 10/12/21 07:07 Dose: 100 mg Documented by: Fluticasone/Vilanterol (Fluticasone/Vilanterol 100/25 Blst.W.Dev) 1 puff INHALE RDAILY [facility] Last Admin: 10/12/21 09:17 Dose: 1 puff Documented by: Lactic Acid (Ammonium Lactate 12 % Cream 140 Gm Tube) 1 appl TOPICAL BID PRN; Protocol PRN Reason: Rash Lisinopril (Lisinopril 40 Mg Tablet) 40 mg PO DAILY [facility]; Protocol Last Admin: 10/12/21 07:07 Dose: 40 mg Documented by: Methadone HCl (Methadone Hcl 20 Mg/2 Ml Oral.Conc) 135 mg PO DAILY [facility] Last Admin: 10/12/21 07:07 Dose: 135 mg Documented by: Morphine Sulfate (Morphine Sulfate 2 Mg/Ml Cartridge) 4 mg IVPUSH Q3H PRN; Protocol PRN Reason: Pain, Severe (Pain Scale 7-10) Last Admin: 10/12/21 03:09 Dose: 4 mg Documented by: Naloxone HCl (Naloxone Hcl 0.4 Mg/Ml Vial) 0.2 mg IVPUSH Q2M PRN PRN Reason: Excessive sedation or RR < 8 Nicotine (Nicotine 21 Mg Patch.Td24) 21 mg TRANSDERMA DAILY [facility] Ondansetron HCl (Ondansetron Hcl 4 Mg/2 Ml Vial) 4 mg IVPUSH Q8H PRN PRN Reason: Nausea and Vomiting Oxycodone HCl (Oxycodone Hcl Immed Release 5 Mg Tablet) 10 mg PO Q6H PRN PRN Reason: Pain, Severe (Pain Scale 7-10) Last Admin: 10/12/21 07:06 Dose: 10 mg Documented by: Polyethylene Glycol (Polyethylene Glycol 3350 17 Gm Powd.Pack) 17 gm PO DAILY [facility] Last Admin: 10/12/21 07:06 Dose: 17 gm Documented by: Senna (Sennosides 8.6 Mg Tablet) 8.6 mg PO BEDTIME PRN PRN Reason: Constipation Last Admin: 10/11/21 19:48 Dose: 8.6 mg Documented by: Warfarin Sodium (Warfarin Sodium 6 Mg Tablet) 6 mg PO DAILY@1800 [facility] Last Admin: 10/11/21 18:03 Dose: 6 mg Documented by: <Elizabeth Ca PA-C - Last Filed: 10/12/21 11:19> Time Spent With Patient Time: Total time spent is greater than 50% in coordination of care (as documented) at patient's floor/unit and/or counseling patient: <Elizabeth Ca PA-C - Last Filed: 10/12/21 11:19> Time with patient: 25 - 35 minutes <Elizabeth Ca PA-C - Last Filed: 10/12/21 11:19> 15 - 24 minutes <Venkatesh Wilson MD - Last Filed: 10/12/21 12:16> Quality Stroke Does the patient have a stroke diagnosis?: No <Elizabeth Ca PA-C - Last Filed: 10/12/21 11:19> VTE Prior VTE?: Yes <Elizabeth Ca PA-C - Last Filed: 10/12/21 11:19> VTE Risk Level:: Surgical - very high <Elizabeth Ca PA-C - Last Filed: 10/12/21 11:19> VTE Device Contraindication: Treatment Not Indicated (stasis ulcer RLE) <Elizabeth Ca PA-C - Last Filed: 10/12/21 11:19> VTE Drug Contraindication: N/A - Med Ordered <Elizabeth Ca PA-C - Last Filed: 10/12/21 11:19>
[2021-10-12] MEDS: Nicotine 21 MG PATCH.TD24 TRANSDERMA (11:19)
--- NOTE | 2021-10-12 14:28 | MHC.CM.PN ---
nurse care manulicesger note electronic medical record reviewed along with case discussed with hospitalist , patient is now post op dya 5 surgical trepair of inacrcerated hernal repair contnues on nasal oxygen , duonebs and inhalers , encouraging ambulation and physical theapry consult ordered, patient is feeling better pain managed with iv /po analgeics , patient is LOS ON [facility] DISCHARGE PLAN HOME [facility] HOME NO SERVICES WILL RE CHECK WITH SURGEON IN THE [place] PCP DAISY MORGAN PATIENT TO CALL AND FOLLOW UP WITH [facility] DISCHARGE MEDICARE IMM UPDATED TRANSPORTATION FRIEND
[2021-10-12] MEDS: ondansetron HCL 4 MG/2 ML VIAL IVPUSH (17:20)
[2021-10-12] MEDS: Warfarin Sodium 6 MG TABLET PO (18:20)
[2021-10-13] VITALS (11 sets, daily range): BP systolic 108–187; BP diastolic 60–91; PULSE 78–108; RESP 17–20; TEMP 36.4–37.3; O2SAT 90–97
[2021-10-13] MEDS: Morphine Sulfate 2 MG/ML CARTRIDGE 4 MG IVPUSH ×4 (03:18→19:54)
[2021-10-13 05:53] LABS: INTERNATIONAL NORM RATIO 2.1 (0.9-1.1); Prothrombin Time 24.2 SEC (9.9-13.0)
[2021-10-13] MEDS: Docusate Sodium 100 MG CAPSULE PO ×2 (07:19→19:55)
[2021-10-13] MEDS: lisinopriL 40 MG TABLET PO (07:19)
[2021-10-13] MEDS: polyethylene glycoL 3350 17 GM POWD.PACK PO (07:20)
[2021-10-13] MEDS: Nicotine 21 MG PATCH.TD24 TRANSDERMA (07:20)
[2021-10-13] MEDS: methADONE HCl 20 MG/2 ML ORAL.CONC 135 MG PO (08:12)
--- NOTE | 2021-10-13 08:22 | PM.PNGS ---
Subjective Subjective Date of Service: 10/13/21 <Elizabeth Ca PA-C - Last Filed: 10/13/21 08:25> 10/13/21 <Venkatesh Wilson MD - Last Filed: 10/13/21 16:20> Interval history: Very upset this morning about not getting methadone on time and continued hard stools that are painful. Tolerating solid diet. OOB and ambulated with PT yesterday. <Elizabeth Ca PA-C - Last Filed: 10/13/21 08:25> Physical Exam Vital Signs: Vital Signs: Last Vital Signs Temp 98.3 F 10/13/21 07:19 Pulse 82 10/13/21 07:19 Resp 20 10/13/21 07:19 BP 165/73 H 10/13/21 07:19 Pulse Ox 96 10/13/21 07:19 BMI result Body Mass Index 49.9 <Elizabeth Ca PA-C - Last Filed: 10/13/21 08:25> Const: General: comfortable and no acute distress <Elizabeth Ca PA-C - Last Filed: 10/13/21 08:25> Orientation/consciousness: patient oriented x3 <Elizabeth Ca PA-C - Last Filed: 10/13/21 08:25> GI: Other: SANDRA drain with scanty serosanguineous output <Elizabeth Ca PA-C - Last Filed: 10/13/21 08:25> Inspection: No distended, Yes incision (clean) and Yes obesity <Elizabeth Ca PA-C - Last Filed: 10/13/21 08:25> Palpation (GI): Soft to palpation and nontender <Elizabeth Ca PA-C - Last Filed: 10/13/21 08:25> Skin: Other: warm and dry <Elizabeth Ca PA-C - Last Filed: 10/13/21 08:25> Neuro: General: patient oriented x3 <Elizabeth Ca PA-C - Last Filed: 10/13/21 08:25> Objective Data Active Medications Albuterol/Ipratropium (Albuterol/Iprat 2.5/0.5mg 3 Ml Ampul.Neb) 3 ml INHALE RQ4H WHILE AWAKE [facility] Last Admin: 10/12/21 20:16 Dose: 3 ml Documented by: JASON Atorvastatin Calcium (Atorvastatin Calcium 40 Mg Tablet) 40 mg PO BEDTIME [facility] Docusate Sodium (Docusate Sodium 100 Mg Capsule) 100 mg PO BID [facility] Last Admin: 10/13/21 07:19 Dose: 100 mg Documented by: RED Fluticasone/Vilanterol (Fluticasone/Vilanterol 100/25 Blst.W.Dev) 1 puff INHALE RDAILY [facility] Last Admin: 10/12/21 09:17 Dose: 1 puff Documented by: BANDAR Lactic Acid (Ammonium Lactate 12 % Cream 140 Gm Tube) 1 appl TOPICAL BID PRN; Protocol PRN Reason: Rash Lisinopril (Lisinopril 40 Mg Tablet) 40 mg PO DAILY [facility]; Protocol Last Admin: 10/13/21 07:19 Dose: 40 mg Documented by: RED Methadone HCl (Methadone Hcl 20 Mg/2 Ml Oral.Conc) 135 mg PO DAILY [facility] Last Admin: 10/13/21 08:12 Dose: 135 mg Documented by: RED Morphine Sulfate (Morphine Sulfate 2 Mg/Ml Cartridge) 4 mg IVPUSH Q3H PRN; Protocol PRN Reason: Pain, Severe (Pain Scale 7-10) Last Admin: 10/13/21 06:19 Dose: 4 mg Documented by: LAURA Naloxone HCl (Naloxone Hcl 0.4 Mg/Ml Vial) 0.2 mg IVPUSH Q2M PRN PRN Reason: Excessive sedation or RR < 8 Nicotine (Nicotine 21 Mg Patch.Td24) 21 mg TRANSDERMA DAILY [facility] Last Admin: 10/13/21 07:20 Dose: 21 mg Documented by: RED Ondansetron HCl (Ondansetron Hcl 4 Mg/2 Ml Vial) 4 mg IVPUSH Q8H PRN PRN Reason: Nausea and Vomiting Last Admin: 10/12/21 17:20 Dose: 4 mg Documented by: RED Oxycodone HCl (Oxycodone Hcl Immed Release 5 Mg Tablet) 10 mg PO Q6H PRN PRN Reason: Pain, Severe (Pain Scale 7-10) Last Admin: 10/12/21 12:55 Dose: 10 mg Documented by: BHUPENDRA Polyethylene Glycol (Polyethylene Glycol 3350 17 Gm Powd.Pack) 17 gm PO DAILY [facility] Last Admin: 10/13/21 07:20 Dose: 17 gm Documented by: RED Senna (Sennosides 8.6 Mg Tablet) 8.6 mg PO BEDTIME PRN PRN Reason: Constipation Last Admin: 10/11/21 19:48 Dose: 8.6 mg Documented by: ARLINE Sodium Biphosphate/Sodium Phosphate (Sodium Phosphate,Beltrami-Dibasic 133 Ml Enema) 133 ml FL ONCE ONE Stop: 10/13/21 08:21 Warfarin Sodium (Warfarin Sodium 6 Mg Tablet) 6 mg PO DAILY@1800 [facility] Last Admin: 10/12/21 18:20 Dose: 6 mg Documented by: ALEXA <Elizabeth Ca PA-C - Last Filed: 10/13/21 08:25> Labs CBC & Chem 7: : 10/12/21 04:44 10/12/21 04:44 <Elizabeth Ca PA-C - Last Filed: 10/13/21 08:25> Labs: Laboratory Results - last 24 hr 10/13/21 05:27 PT 24.2 H INR 2.1 H <Elizabeth Ca PA-C - Last Filed: 10/13/21 08:25> Microbiology Microbiology Results: Microbiology 10/07/21 05:05 Blood Culture - Final Blood - Venous No growth after 5 days. 10/07/21 05:05 Blood Culture - Final Blood - Venous No growth after 5 days. <Elizabeth Ca PA-C - Last Filed: 10/13/21 08:25> Procedures Date of Service Date of Service: 10/13/21 <JAY Mota Last Filed: 10/13/21 08:25> Progress Note: A&P Assessment and plan (1) Incarcerated right inguinal hernia: Status: Acute <Elizabeth Ca PA-C - Last Filed: 10/13/21 08:25> (2) Small bowel obstruction: Status: Acute <JAY Mota Last Filed: 10/13/21 08:25> (3) Acute and chronic respiratory failure: Status: Acute <Elizabeth Ca PA-C - Last Filed: 10/13/21 08:25> (4) Morbid obesity due to excess calories: Status: Acute <Elizabeth Ca PA-C - Last Filed: 10/13/21 08:25> Assessment and Plan: S/p repair of incarcerated right inguinal hernia, scrotal hernia containing small bowel and cecum with large Ventralex mesh. Continues to do well post op from surgical standpoint. Tolerating diet, moving bowels but c/o hard stools. Incision site clean and SANDRA with scanty serosanguineous drainage which will be removed later today. On bowel regimen of colace, miralax, MOM. Will give fleets x1. Encouraged OOB/ambulation and IS use. PT recommend home with outpt PT. Wean O2. Hopeful discharge in next 1-2 days once off oxygen.?Discussed with patient and RN. <Elizabeth Ca PA-C - Last Filed: 10/13/21 08:25> S/p repair of incarcerated right inguinal hernia, scrotal hernia containing small bowel and cecum with large Ventralex mesh. Continues to do well post op from surgical standpoint. Tolerating diet, moving bowels but c/o hard stools. Incision site clean and SANDRA with scanty serosanguineous drainage which will be removed later today. On bowel regimen of colace, miralax, MOM. Will give fleets x1. Encouraged OOB/ambulation and IS use. PT recommend home with outpt PT. Wean O2. Hopeful discharge in next 1-2 days once off oxygen.?Discussed with patient and RN. Agree with the above assessment and plan. Patient will need home PT and walker for discharge. Agree with drain removal. Possible home tomorrow with services. <Venkatesh Wilson MD - Last Filed: 10/13/21 16:20> Fall Risk Details Current Medications: Current Medications Albuterol/Ipratropium (Albuterol/Iprat 2.5/0.5mg 3 Ml Ampul.Neb) 3 ml INHALE RQ4H WHILE AWAKE [facility] Last Admin: 10/12/21 20:16 Dose: 3 ml Documented by: Atorvastatin Calcium (Atorvastatin Calcium 40 Mg Tablet) 40 mg PO BEDTIME [facility] Docusate Sodium (Docusate Sodium 100 Mg Capsule) 100 mg PO BID [facility] Last Admin: 10/13/21 07:19 Dose: 100 mg Documented by: Fluticasone/Vilanterol (Fluticasone/Vilanterol 100/25 Blst.W.Dev) 1 puff INHALE RDAILY [facility] Last Admin: 10/12/21 09:17 Dose: 1 puff Documented by: Lactic Acid (Ammonium Lactate 12 % Cream 140 Gm Tube) 1 appl TOPICAL BID PRN; Protocol PRN Reason: Rash Lisinopril (Lisinopril 40 Mg Tablet) 40 mg PO DAILY [facility]; Protocol Last Admin: 10/13/21 07:19 Dose: 40 mg Documented by: Methadone HCl (Methadone Hcl 20 Mg/2 Ml Oral.Conc) 135 mg PO DAILY [facility] Last Admin: 10/13/21 08:12 Dose: 135 mg Documented by: Morphine Sulfate (Morphine Sulfate 2 Mg/Ml Cartridge) 4 mg IVPUSH Q3H PRN; Protocol PRN Reason: Pain, Severe (Pain Scale 7-10) Last Admin: 10/13/21 06:19 Dose: 4 mg Documented by: Naloxone HCl (Naloxone Hcl 0.4 Mg/Ml Vial) 0.2 mg IVPUSH Q2M PRN PRN Reason: Excessive sedation or RR < 8 Nicotine (Nicotine 21 Mg Patch.Td24) 21 mg TRANSDERMA DAILY [facility] Last Admin: 10/13/21 07:20 Dose: 21 mg Documented by: Ondansetron HCl (Ondansetron Hcl 4 Mg/2 Ml Vial) 4 mg IVPUSH Q8H PRN PRN Reason: Nausea and Vomiting Last Admin: 10/12/21 17:20 Dose: 4 mg Documented by: Oxycodone HCl (Oxycodone Hcl Immed Release 5 Mg Tablet) 10 mg PO Q6H PRN PRN Reason: Pain, Severe (Pain Scale 7-10) Last Admin: 10/12/21 12:55 Dose: 10 mg Documented by: Polyethylene Glycol (Polyethylene Glycol 3350 17 Gm Powd.Pack) 17 gm PO DAILY [facility] Last Admin: 10/13/21 07:20 Dose: 17 gm Documented by: Senna (Sennosides 8.6 Mg Tablet) 8.6 mg PO BEDTIME PRN PRN Reason: Constipation Last Admin: 10/11/21 19:48 Dose: 8.6 mg Documented by: Sodium Biphosphate/Sodium Phosphate (Sodium Phosphate,Beltr[place]-Dibasic 133 Ml Enema) 133 ml FL ONCE ONE Stop: 10/13/21 08:21 Warfarin Sodium (Warfarin Sodium 6 Mg Tablet) 6 mg PO DAILY@1800 [facility] Last Admin: 10/12/21 18:20 Dose: 6 mg Documented by: <Elizabeth Ca PA-C - Last Filed: 10/13/21 08:25> Time Spent With Patient Time: Total time spent is greater than 50% in coordination of care (as documented) at patient's floor/unit and/or counseling patient: <Elizabeth Ca PA-C - Last Filed: 10/13/21 08:25> Time with patient: 25 - 35 minutes <Elizabeth Ca PA-C - Last Filed: 10/13/21 08:25> Quality Stroke Does the patient have a stroke diagnosis?: No <Elizabeth Ca PA-C - Last Filed: 10/13/21 08:25> VTE Prior VTE?: Yes <Elizabeth Ca PA-C - Last Filed: 10/13/21 08:25> VTE Risk Level:: Surgical - very high <JAY Mota Last Filed: 10/13/21 08:25> VTE Device Contraindication: Treatment Not Indicated (stasis ulcer RLE) <Elizabeth Ca PA-C - Last Filed: 10/13/21 08:25> VTE Drug Contraindication: N/A - Med Ordered <JAY Mota Last Filed: 10/13/21 08:25>
[2021-10-13] MEDS: Albuterol/Iprat 2.5/0.5MG 3 ML AMPUL.NEB INHALE ×4 (08:30→20:36)
[2021-10-13] MEDS: Fluticasone/Vilanterol 100/25 BLST.W.DEV 1 PUFF INHALE (08:30)
[2021-10-13] MEDS: Warfarin Sodium 6 MG TABLET PO (15:54)
[2021-10-14] VITALS (7 sets, daily range): BP systolic 99–177; BP diastolic 54–92; PULSE 73–90; RESP 16–20; TEMP 36.2–37; O2SAT 91–94
[2021-10-14] MEDS: Morphine Sulfate 2 MG/ML CARTRIDGE 4 MG IVPUSH ×2 (01:17→06:07)
[2021-10-14] MEDS: ondansetron HCL 4 MG/2 ML VIAL IVPUSH (01:17)
[2021-10-14] MEDS: oxyCODONE HCl Immed Release 5 MG TABLET 10 MG PO ×3 (07:39→20:32)
[2021-10-14] MEDS: lisinopriL 40 MG TABLET PO (07:40)
[2021-10-14] MEDS: polyethylene glycoL 3350 17 GM POWD.PACK PO (07:40)
[2021-10-14] MEDS: methADONE HCl 20 MG/2 ML ORAL.CONC 135 MG PO (07:40)
[2021-10-14] MEDS: Docusate Sodium 100 MG CAPSULE PO ×2 (07:40→20:32)
[2021-10-14] MEDS: Nicotine 21 MG PATCH.TD24 TRANSDERMA (07:40)
--- NOTE | 2021-10-14 09:44 | PM.PNGS ---
Subjective Subjective Date of Service: 10/14/21 Interval history: Had multiple episodes of vomiting last night. Feels better this morning but not tolerating much PO intake. Continued to pass flatus this entire time. Some pain at incision site and upper abdomen after retching. Physical Exam Vital Signs: Vital Signs: Last Vital Signs Temp 97.8 F 10/14/21 07:47 Pulse 85 10/14/21 07:47 Resp 20 10/14/21 07:47 BP 177/74 H 10/14/21 07:47 Pulse Ox 93 10/14/21 07:47 BMI result Body Mass Index 49.9 Const: General: comfortable and no acute distress Orientation/consciousness: patient oriented x3 Resp: Effort & Inspection: normal respiratory effort GI: Other: SANDRA with serosanguineous drainage, bulb displaced yesterday Inspection: No distended and Yes incision (clean) Palpation (GI): Soft to palpation, Tenderness to palpation present (GI) (mild, incisional), no guarding and not rigid Percussion: Yes normal to percussion Skin: General skin exam: no rashes or lesions noted Neuro: General: patient oriented x3 Objective Data Active Medications Albuterol/Ipratropium (Albuterol/Iprat 2.5/0.5mg 3 Ml Ampul.Neb) 3 ml INHALE RQ4H WHILE AWAKE [facility] Last Admin: 10/14/21 09:02 Dose: Not Given Documented by: AWA Non-Admin Reason: rt not avail Atorvastatin Calcium (Atorvastatin Calcium 40 Mg Tablet) 40 mg PO BEDTIME [facility] Docusate Sodium (Docusate Sodium 100 Mg Capsule) 100 mg PO BID [facility] Last Admin: 10/14/21 07:40 Dose: 100 mg Documented by: BHUPENDRA Fluticasone/Vilanterol (Fluticasone/Vilanterol 100/25 Blst.W.Dev) 1 puff INHALE RDAILY [facility] Last Admin: 10/14/21 09:02 Dose: Not Given Documented by: AWA Non-Admin Reason: rt not avail Lactic Acid (Ammonium Lactate 12 % Cream 140 Gm Tube) 1 appl TOPICAL BID PRN; Protocol PRN Reason: Rash Lisinopril (Lisinopril 40 Mg Tablet) 40 mg PO DAILY [facility]; Protocol Last Admin: 10/14/21 07:40 Dose: 40 mg Documented by: BHUPENDRA Methadone HCl (Methadone Hcl 20 Mg/2 Ml Oral.Conc) 135 mg PO DAILY [facility] Last Admin: 10/14/21 07:40 Dose: 135 mg Documented by: BHUPENDRA Naloxone HCl (Naloxone Hcl 0.4 Mg/Ml Vial) 0.2 mg IVPUSH Q2M PRN PRN Reason: Excessive sedation or RR < 8 Nicotine (Nicotine 21 Mg Patch.Td24) 21 mg TRANSDERMA DAILY [facility] Last Admin: 10/14/21 07:40 Dose: 21 mg Documented by: BHUPENDRA Ondansetron HCl (Ondansetron Hcl 4 Mg/2 Ml Vial) 4 mg IVPUSH Q8H PRN PRN Reason: Nausea and Vomiting Last Admin: 10/14/21 01:17 Dose: 4 mg Documented by: GISELE Oxycodone HCl (Oxycodone Hcl Immed Release 5 Mg Tablet) 10 mg PO Q6H PRN PRN Reason: Pain, Severe (Pain Scale 7-10) Last Admin: 10/14/21 07:39 Dose: 10 mg Documented by: BHUPENDRA Polyethylene Glycol (Polyethylene Glycol 3350 17 Gm Powd.Pack) 17 gm PO DAILY [facility] Last Admin: 10/14/21 07:40 Dose: 17 gm Documented by: BHUPENDRA Senna (Sennosides 8.6 Mg Tablet) 8.6 mg PO BEDTIME PRN PRN Reason: Constipation Last Admin: 10/11/21 19:48 Dose: 8.6 mg Documented by: ARLINE Warfarin Sodium (Warfarin Sodium 6 Mg Tablet) 6 mg PO DAILY@1800 [facility] Last Admin: 10/13/21 15:54 Dose: 6 mg Documented by: ALEXA Labs CBC & Chem 7: 10/12/21 04:44 10/12/21 04:44 Labs: Laboratory Results - last 24 hr 10/14/21 05:29 PT 23.0 H INR 2.0 H Procedures Date of Service Date of Service: 10/14/21 Progress Note: A&P Assessment and plan (1) Acute and chronic respiratory failure: Status: Acute (2) Obesity hypoventilation syndrome: Status: Acute (3) Small bowel obstruction: Status: Acute (4) Incarcerated right inguinal hernia: Status: Acute Assessment and Plan: S/p repair of incarcerated right inguinal hernia, scrotal hernia containing small bowel and cecum with large Ventralex mesh. Vomiting overnight- unclear etiology, ?ileus due to narcotics but has been passing flatus and moving bowels. Feels better this morning. VSS. Abd exam benign, SANDRA drain removed. Encouraged OOB/ambulation and IS use. Diet as tolerated today. Will obtain AXR if vomiting recurrs. PT recommend home with outpt PT. ?Hopefully home tomorrow. Discussed with patient. Fall Risk Details Current Medications: Current Medications Albuterol/Ipratropium (Albuterol/Iprat 2.5/0.5mg 3 Ml Ampul.Neb) 3 ml INHALE RQ4H WHILE AWAKE [facility] Last Admin: 10/14/21 09:02 Dose: Not Given Documented by: Atorvastatin Calcium (Atorvastatin Calcium 40 Mg Tablet) 40 mg PO BEDTIME [facility] Docusate Sodium (Docusate Sodium 100 Mg Capsule) 100 mg PO BID [facility] Last Admin: 10/14/21 07:40 Dose: 100 mg Documented by: Fluticasone/Vilanterol (Fluticasone/Vilanterol 100/25 Blst.W.Dev) 1 puff INHALE RDAILY [facility] Last Admin: 10/14/21 09:02 Dose: Not Given Documented by: Lactic Acid (Ammonium Lactate 12 % Cream 140 Gm Tube) 1 appl TOPICAL BID PRN; Protocol PRN Reason: Rash Lisinopril (Lisinopril 40 Mg Tablet) 40 mg PO DAILY [facility]; Protocol Last Admin: 10/14/21 07:40 Dose: 40 mg Documented by: Methadone HCl (Methadone Hcl 20 Mg/2 Ml Oral.Conc) 135 mg PO DAILY [facility] Last Admin: 10/14/21 07:40 Dose: 135 mg Documented by: Naloxone HCl (Naloxone Hcl 0.4 Mg/Ml Vial) 0.2 mg IVPUSH Q2M PRN PRN Reason: Excessive sedation or RR < 8 Nicotine (Nicotine 21 Mg Patch.Td24) 21 mg TRANSDERMA DAILY [facility] Last Admin: 10/14/21 07:40 Dose: 21 mg Documented by: Ondansetron HCl (Ondansetron Hcl 4 Mg/2 Ml Vial) 4 mg IVPUSH Q8H PRN PRN Reason: Nausea and Vomiting Last Admin: 10/14/21 01:17 Dose: 4 mg Documented by: Oxycodone HCl (Oxycodone Hcl Immed Release 5 Mg Tablet) 10 mg PO Q6H PRN PRN Reason: Pain, Severe (Pain Scale 7-10) Last Admin: 10/14/21 07:39 Dose: 10 mg Documented by: Polyethylene Glycol (Polyethylene Glycol 3350 17 Gm Powd.Pack) 17 gm PO DAILY [facility] Last Admin: 10/14/21 07:40 Dose: 17 gm Documented by: Senna (Sennosides 8.6 Mg Tablet) 8.6 mg PO BEDTIME PRN PRN Reason: Constipation Last Admin: 10/11/21 19:48 Dose: 8.6 mg Documented by: Warfarin Sodium (Warfarin Sodium 6 Mg Tablet) 6 mg PO DAILY@1800 [facility] Last Admin: 10/13/21 15:54 Dose: 6 mg Documented by: Time Spent With Patient Time: Total time spent is greater than 50% in coordination of care (as documented) at patient's floor/unit and/or counseling patient: Time with patient: 25 - 35 minutes Quality Stroke Does the patient have a stroke diagnosis?: No VTE Prior VTE?: Yes VTE Risk Level:: Surgical - very high VTE Device Contraindication: Treatment Not Indicated (stasis ulcer RLE) VTE Drug Contraindication: N/A - Med Ordered
[2021-10-14] MEDS: Albuterol/Iprat 2.5/0.5MG 3 ML AMPUL.NEB INHALE ×2 (11:32→14:56)
--- NOTE | 2021-10-14 11:52 | MHC.CM.PN ---
EMR REVIEWED, PT NOT TOLERATING PO DIET AND HAD MULTIPLE EPISODES OF VOMITING LAST NIGHT, NO D/C PLAN FOR TODAY, ANTIC D/C TOMORROW 10/15 W/RESUMP OF [employer] [facility]/VNA AND NEW HOME PT. FAMILY FOR TRANSPORT.
[2021-10-14] MEDS: Warfarin Sodium 6 MG TABLET PO (17:20)
[2021-10-15] MEDS: oxyCODONE HCl Immed Release 5 MG TABLET 10 MG PO (03:03)
[2021-10-15 04:00] VITALS: BP 135/67; PULSE 69; RESP 17; TEMP 36.4; O2SAT 94
[2021-10-15 05:53] LABS: Prothrombin Time 23.4 SEC (9.9-13.0)
[2021-10-15 07:16] VITALS: BP 136/65; PULSE 67; RESP 20; TEMP 37.4; O2SAT 92
[2021-10-15] MEDS: Albuterol/Iprat 2.5/0.5MG 3 ML AMPUL.NEB INHALE (07:27)
--- NOTE | 2021-10-15 08:36 | P.PNGS_ITS ---
Subjective Subjective Date of Service: 10/15/21 Interval history: Didn't sleep well. Denies further nausea or vomiting. Wants to go home. Physical Exam Vital Signs: Vital Signs: Last Vital Signs Temp 99.3 F 10/15/21 07:16 Pulse 67 10/15/21 07:16 Resp 20 10/15/21 07:16 BP 136/65 10/15/21 07:16 Pulse Ox 92 10/15/21 07:16 BMI result Body Mass Index 49.9 Const: General: comfortable and no acute distress Orientation/consciousness: patient oriented x3 GI: Inspection: No distended, Yes incision (clean) and Yes obesity Palpation (GI): Soft to palpation and nontender Skin: General skin exam: no rashes or lesions noted Neuro: General: patient oriented x3 Objective Data Active Medications Albuterol/Ipratropium (Albuterol/Iprat 2.5/0.5mg 3 Ml Ampul.Neb) 3 ml INHALE RQ4H WHILE AWAKE [facility] Last Admin: 10/15/21 07:27 Dose: 3 ml Documented by: AWA Atorvastatin Calcium (Atorvastatin Calcium 40 Mg Tablet) 40 mg PO BEDTIME [facility] Docusate Sodium (Docusate Sodium 100 Mg Capsule) 100 mg PO BID [facility] Last Admin: 10/14/21 20:32 Dose: 100 mg Documented by: GISELE Fluticasone/Vilanterol (Fluticasone/Vilanterol 100/25 Blst.W.Dev) 1 puff INHALE RDAILY [facility] Last Admin: 10/15/21 07:26 Dose: Not Given Documented by: AWA Non-Admin Reason: Patient Refused Lactic Acid (Ammonium Lactate 12 % Cream 140 Gm Tube) 1 appl TOPICAL BID PRN; Protocol PRN Reason: Rash Lisinopril (Lisinopril 40 Mg Tablet) 40 mg PO DAILY [facility]; Protocol Last Admin: 10/14/21 07:40 Dose: 40 mg Documented by: BHUPENDRA Methadone HCl (Methadone Hcl 20 Mg/2 Ml Oral.Conc) 135 mg PO DAILY [facility] Last Admin: 10/14/21 07:40 Dose: 135 mg Documented by: BHUPENDRA Naloxone HCl (Naloxone Hcl 0.4 Mg/Ml Vial) 0.2 mg IVPUSH Q2M PRN PRN Reason: Excessive sedation or RR < 8 Nicotine (Nicotine 21 Mg Patch.Td24) 21 mg TRANSDERMA DAILY [facility] Last Admin: 10/14/21 07:40 Dose: 21 mg Documented by: BHUPENDRA Ondansetron HCl (Ondansetron Hcl 4 Mg/2 Ml Vial) 4 mg IVPUSH Q8H PRN PRN Reason: Nausea and Vomiting Last Admin: 10/14/21 01:17 Dose: 4 mg Documented by: GISELE Oxycodone HCl (Oxycodone Hcl Immed Release 5 Mg Tablet) 10 mg PO Q6H PRN PRN Reason: Pain, Severe (Pain Scale 7-10) Last Admin: 10/15/21 03:03 Dose: 10 mg Documented by: GISELE Polyethylene Glycol (Polyethylene Glycol 3350 17 Gm Powd.Pack) 17 gm PO DAILY [facility] Last Admin: 10/14/21 07:40 Dose: 17 gm Documented by: BHUPENDRA Senna (Sennosides 8.6 Mg Tablet) 8.6 mg PO BEDTIME PRN PRN Reason: Constipation Last Admin: 10/11/21 19:48 Dose: 8.6 mg Documented by: ARLINE Warfarin Sodium (Warfarin Sodium 6 Mg Tablet) 6 mg PO DAILY@1800 [facility] Last Admin: 10/14/21 17:20 Dose: 6 mg Documented by: NANCY Labs CBC & Chem 7: 10/12/21 04:44 10/12/21 04:44 Labs: Laboratory Results - last 24 hr 10/15/21 05:32 PT 23.4 H INR 2.0 H Procedures Date of Service Date of Service: 10/15/21 Progress Note: A&P Assessment and plan (1) Small bowel obstruction: Status: Acute (2) Incarcerated right inguinal hernia: Status: Acute Assessment and Plan: S/p repair of incarcerated right inguinal hernia, scrotal hernia containing small bowel and cecum with large Ventralex mesh. Doing well post op and feels ready for discharge. Abd benign and incision clean. Stable for d/c to home today. F/u in office with Dr. Wilson in 1 week. Educated no heavy lifting, smoking cessation. Fall Risk Details Current Medications: Current Medications Albuterol/Ipratropium (Albuterol/Iprat 2.5/0.5mg 3 Ml Ampul.Neb) 3 ml INHALE RQ4H WHILE AWAKE [facility] Last Admin: 10/15/21 07:27 Dose: 3 ml Documented by: Atorvastatin Calcium (Atorvastatin Calcium 40 Mg Tablet) 40 mg PO BEDTIME [facility] Docusate Sodium (Docusate Sodium 100 Mg Capsule) 100 mg PO BID [facility] Last Admin: 10/14/21 20:32 Dose: 100 mg Documented by: Fluticasone/Vilanterol (Fluticasone/Vilanterol 100/25 Blst.W.Dev) 1 puff INHALE RDAILY [facility] Last Admin: 10/15/21 07:26 Dose: Not Given Documented by: Lactic Acid (Ammonium Lactate 12 % Cream 140 Gm Tube) 1 appl TOPICAL BID PRN; Protocol PRN Reason: Rash Lisinopril (Lisinopril 40 Mg Tablet) 40 mg PO DAILY [facility]; Protocol Last Admin: 10/14/21 07:40 Dose: 40 mg Documented by: Methadone HCl (Methadone Hcl 20 Mg/2 Ml Oral.Conc) 135 mg PO DAILY [facility] Last Admin: 10/14/21 07:40 Dose: 135 mg Documented by: Naloxone HCl (Naloxone Hcl 0.4 Mg/Ml Vial) 0.2 mg IVPUSH Q2M PRN PRN Reason: Excessive sedation or RR < 8 Nicotine (Nicotine 21 Mg Patch.Td24) 21 mg TRANSDERMA DAILY [facility] Last Admin: 10/14/21 07:40 Dose: 21 mg Documented by: Ondansetron HCl (Ondansetron Hcl 4 Mg/2 Ml Vial) 4 mg IVPUSH Q8H PRN PRN Reason: Nausea and Vomiting Last Admin: 10/14/21 01:17 Dose: 4 mg Documented by: Oxycodone HCl (Oxycodone Hcl Immed Release 5 Mg Tablet) 10 mg PO Q6H PRN PRN Reason: Pain, Severe (Pain Scale 7-10) Last Admin: 10/15/21 03:03 Dose: 10 mg Documented by: Polyethylene Glycol (Polyethylene Glycol 3350 17 Gm Powd.Pack) 17 gm PO DAILY [facility] Last Admin: 10/14/21 07:40 Dose: 17 gm Documented by: Senna (Sennosides 8.6 Mg Tablet) 8.6 mg PO BEDTIME PRN PRN Reason: Constipation Last Admin: 10/11/21 19:48 Dose: 8.6 mg Documented by: Warfarin Sodium (Warfarin Sodium 6 Mg Tablet) 6 mg PO DAILY@1800 [facility] Last Admin: 10/14/21 17:20 Dose: 6 mg Documented by: Time Spent With Patient Time: Total time spent is greater than 50% in coordination of care (as documented) at patient's floor/unit and/or counseling patient: Time with patient: 25 - 35 minutes Quality Stroke Does the patient have a stroke diagnosis?: No VTE Prior VTE?: Yes VTE Risk Level:: Surgical - very high VTE Device Contraindication: Treatment Not Indicated (stasis ulcer RLE) VTE Drug Contraindication: N/A - Med Ordered
[2021-10-15] MEDS: Nicotine 21 MG PATCH.TD24 TRANSDERMA (09:23)
[2021-10-15 09:24] VITALS: BP 136/65; PULSE 67
[2021-10-15] MEDS: lisinopriL 40 MG TABLET PO (09:24)
[2021-10-15] MEDS: Docusate Sodium 100 MG CAPSULE PO (09:24)
[2021-10-15] MEDS: methADONE HCl 20 MG/2 ML ORAL.CONC 135 MG PO (09:24)
[2021-10-15] MEDS: polyethylene glycoL 3350 17 GM POWD.PACK PO (09:24)
--- NOTE | 2021-10-15 09:56 | MHC.CM.PN ---
nurse skin care consultantconsulting technical manager medical record reviewed along with case discussed with staff nurse and surgical p.a. met with patient medicare imm updated discharge plan home with resumption of allied health v[facility] for nursing for diagnosis sighn symptom management and post surgical assessment, home pt assessment going homwe with script for walker . daily methadone administration from locked med box . patient recived his 10/15/21 methadone 40 mg at 09:24 today this information was given to the vna transportation family /friend friend will poultry picking machine tender walker and scripts at pharmacy follow up post hospitla discharge with pcp surgical follow up per discharge instructions medicare immm updated all discharge questions answered and paperwork completed
--- NOTE | 2021-10-15 09:58 | W.MHC.F2F ---
Service Date Service Date: 10/15/21 Encounter Date of encounter: 10/15/21 Reasons for Services Signs and symptoms assessed: Abdominal pain, GI function, PO tolerance, incision appearance Reason for [facility]: postoperative assessment and/or care Reason for physical therapy: therapeutic exercises and gait/transfer training Homebound: Leaving the home is medically contraindicated at this time without the asist of a device and/or another person due th the listed conditions above and below. Reason homebound: weakness related to hospital stay and unable to drive Homebound supporting statement: Mr. Naidu is a 66 year old male admitted with incarcerated right inguinal hernia containing cecum and small bowel who is s/p repair of incarcerated right inguinal hernia with mesh. He required ventilation in ICU post operatively and is deconditioned. He will require VNA services for post op care and PT for safety, gait training and therapeutic exercises. Certification: Based on the above findings, I certify that this patient is confined to the home and needs intermittent [facility] care, physical therapy and/or speech therapy, or continues to need occupational therapy. The patient is under my care, and I have initiated the establishment of the plan of care. The patient will be followed by a physician who will periodically review the plan of care.
--- NOTE | 2021-10-15 10:22 | P.DS_ITS ---
DS: Providers Provider Date of Service: 10/15/21 Date of admission: 10/07/21 10:40 Primary care physician: Unknown Physician Attending physician on admission: Virgie Wright Consults: 10/08/21 14:31 Consult to Hospitalist Routine Consulting Provider: Kalli Sam Reason For Exam: ICu downgrade Attending physician on discharge: Venkatesh Wilson DS: Diagnosis Discharge Diagnosis (1) Small bowel obstruction: Status: Acute (2) Incarcerated right inguinal hernia: Status: Acute DS: Summary Hospital Course Hospital Course: BRIEF HPI: Jose Naidu is a 66 year old male who presented to the emergency department during the night with complaints of a known right inguinal hernia and severe lower abdominal pain, nausea and vomiting.? He reported that he had been passing some flatus and that he had a bowel movement yesterday, but that the amount of stool he passed was significantly less than usual for him.? He reported fever to around 100 degrees and chills.? He has not had this type of pain in the past.? He has a history of a right inguinal hernia, duration on clear.? He reports that he has had discomfort associated with it in the past.? He saw a surgeon at [facility] to discuss repair but was told that he was not a candidate for repair at the time.? He has a history of chronic venous stasis and has an active stasis ulcer on the right lower extremity for which he is followed at the [facility] wound care. In the emergency department, CT scan of the abdomen and pelvis was obtained.? This demonstrated a large right inguinal hernia containing the cecum and distal ileum causing small-bowel obstruction.?Hernia was unreducible. An attempt was made in the emergency room to pass an NG tube, but this was unsuccessful.? He has a history of cleft lip (palate?)? Repair, details unclear. HOSPITAL COURSE: ?The patient was admitted to the surgical service for further treatment of the incarcerated right inguinal hernia. It was recommende to proceed with repair of the inguinal hernia with mesh. He agreed to proceed with surgery and was added onto the OR schedule for that day. On 10/07/21, repair of right incarcerated inguinal hernia with large ventralex mesh was performed by Dr. Virgie Wright without immediate complication. He was transferred to the ICU intubated due to concern over his airway and his medical comorbidities and preoperatively was wheezing and had rales. He was extubated the following morning, was doing well from a pulmonary and medical standpoint and transferred to the medical/surgical floor. He was started on his methadone treatment. He had an uncomplicated but slower recovery course. He did fairly well post operatively. He was started on a clear liquid diet following extubation and PRN IV/PO analgesics with good pain control. His campa catheter was removed. He was started on lovenox bridge while his INR became therapeutic given his hx of DVTs. His INR became therapeutic and his lovenox was discontinued. He was ambulated. A PT consult was obtained to increase his activity. His diet was slowly advanced to solids as tolerated. He complained of hard stools and was started on miralax, dulcolax for a bowel regimen. He was requiring supplemental O2 and this was gradually weaned. His incision remained clean during this time and SANDRA drain was removed. His pain was controlled on PO analgesics. He was doing well post operatively and he was stable for discharge to home with VNA and PT services on 10/15/21. Time spent discussing smoking cessation with patient: more than 10 minutes Status at Discharge Functional status at discharge: uses cane/walker Overall status at discharge: patient is progressing back to baseline Time Spent with Patient Time attestation: Total time spent providing and/or coordinating discharge services: Discharge coordination time: Greater than 30 minutes Quality: Stroke Does the patient have a stroke diagnosis?: No Physical Exam Vital Signs: Vital Signs: Last Vital Signs Temp 99.3 F 10/15/21 07:16 Pulse 67 10/15/21 09:24 Resp 20 10/15/21 07:16 BP 136/65 10/15/21 09:24 Pulse Ox 92 10/15/21 07:16 BMI result Body Mass Index 49.9 Const: General: comfortable, no acute distress and alert Orientation/consciousness: patient oriented x3 Resp: Effort & Inspection: normal respiratory effort GI: Inspection: No distended, Yes incision (clean) and Yes obesity Palpation (GI): Soft to palpation Skin: Other: warm and dry Neuro: General: patient oriented x3 DS: Data Data Completed and Pending Labs on day of discharge: Laboratory Results - last 24 hr 10/15/21 05:32 PT 23.4 H INR 2.0 H Discharge Plan Discharge Patient Disposition: Home Health Service Discharge Diagnosis: SBO, incarcerated right inguinal hernia s/p repair Referrals: [facility] [Other] - 1 Day (RESUM-TION OF YOU VNA FOR NURSING (DIAGNOSIS -DISEASE MANAGAMENT) MEDICATION ADMINISTRATION TRANSPORTATION FRIEND PCP INSTRUCTED TO CALL FOR FOLLOW UP POST HOSPITAL DISCHARGE HAS SCRIPT FOR [facility];MICHELE AND FRIEND WILL OBTAIN) Venkatesh Wilson MD [Physician] - 1 Week [facility] [Primary Care Provider] - 1 Week Discharge Medications: New nicotine 21 mg/24 hr Patch 24 Hour 21 mg transdermal DAILY 30 Days Qty: 30 RF: 0 (DME) walker Misc See Rx Instructions .ROUTE Qty: 1 RF: 0 oxycodone 5 mg tablet 5 mg PO Q6H PRN (Reason: pain (scale score 7-10)) Qty: 25 RF: 0 Continued methadone 10 mg/5 mL Solution 135 mg PO DAILY RF: 0 fluticasone propion-salmeterol 250-50 mcg/dose blister with device 1 puff inhalation DAILY RF: 0 sennosides-docusate sodium [Stool Softener-Stimulant Laxat] 8.6-50 mg tablet 2 tab PO DAILY RF: 0 warfarin 3 mg tablet 6 mg PO DAILY RF: 0 ascorbic acid (vitamin C) [Vitamin C] 500 mg tablet 1 tab PO DAILY RF: 0 ammonium lactate 12 % cream 1 applic topical BID PRN (Reason: Rash) RF: 0 furosemide 20 mg tablet 1 tab PO DAILY RF: 0 lisinopril 40 mg tablet 1 tab PO DAILY RF: 0 rosuvastatin 10 mg tablet 1 tab PO DAILY RF: 0 vitamin B complex-folic acid [Complex B-100] 400 mcg tablet extended release 1 tab PO DAILY RF: 0 Discharge Orders: Discharge Order (Routine); Ordered 10/15/21 Ordered By: Elizabeth Ca Diet: advance to usual diet Activity on Discharge: No heavy lifting Stand Alone Forms: Patient Portal Discharge page Activity Restrictions/Additional Instructions: If the incision area is tender, you may apply an ice pack for short intervals (No more than 20 minutes on, followed by at least 20 minutes off). Do not apply heat. Do not use creams, lotions, or topical antibiotics unless instructed to do so by your surgeon. These can cause infection or allergic reaction. Ok to shower. You have harish closing your incision and these will be removed approximately 10-14 days after surgery. NO HEAVY LIFTING (>10lbs). Follow up in office. ([phone]) Stop smoking. Call Your Doctor If: -Your temperature exceeds 101.5? F -You experience excessive pain or swelling -You have an unexpected reaction to medication -You have excessive bleeding -You experience continued vomiting/nausea -Your incision begins to separate -Your incision shows signs of infection such as increased redness, swelling, excessive pain, drainage (light blood or clear fluid is normal) or heat Care Plan Goals: Return to baseline health and gradual return to activity following recovery period. Smoking cessation. Health Concerns: Hypertension, obesity, asthma, incarcerated right inguinal hernia s/p repair Plan of Treatment: Wean O2, increase activity, discharge to home with VNA/PT Assessment: Improved Discharge Date/Time: 10/15/21 10:30
== END 2021-10-15 10:30 | disposition home health service (06) | DRG 350 ==
LOC: HO.ED 08:54 → HO.EDOVER 10:51 → HO.ICU 17:02 → HO.S3 10-08 14:38
PROVIDERS: Internal Medicine Cardiovascular Disease; Physician Assistant; Physician Assistant Medical; Admitting Provider Surgery; Emergency Provider Student in an Organized Health Care Education/Training Program; PCP Registered Nurse; Visit Provider Surgery
DX: K40.30 Unilateral inguinal hernia, with obstruction, without gangrene, not specified as recurrent (principal); J96.01 Acute respiratory failure with hypoxia; F11.20 Opioid dependence, uncomplicated; E66.2 Morbid (severe) obesity with alveolar hypoventilation; Z68.42 Body mass index [BMI] 45.0-49.9, adult; I87.331 Chronic venous hypertension (idiopathic) with ulcer and inflammation of right lower extremity; L97.819 Non-pressure chronic ulcer of other part of right lower leg with unspecified severity; F17.210 Nicotine dependence, cigarettes, uncomplicated; Z71.6 Tobacco abuse counseling; Z20.822 Contact with and (suspected) exposure to COVID-19; E89.5 Postprocedural testicular hypofunction; I11.9 Hypertensive heart disease without heart failure; J44.9 Chronic obstructive pulmonary disease, unspecified; G89.29 Other chronic pain; Z86.718 Personal history of other venous thrombosis and embolism; Z86.711 Personal history of pulmonary embolism; Z88.0 Allergy status to penicillin; Z88.5 Allergy status to narcotic agent; Z88.6 Allergy status to analgesic agent; Z79.51 Long term (current) use of inhaled steroids; Z79.01 Long term (current) use of anticoagulants; Z79.899 Other long term (current) drug therapy
CPT/HCPCS: 36415; 36600; 71045; 74177; 80048; 80053; 81003; 82803; 83605; 83690; 83735; 84100; 85025; 85027; 85610; 86850; 86900; 86901; 87040; 87635; 93005; 93971; 94002; 94003; 94640; 94799; 96365; 96375; 97116; 97162; 97530; 99024; 99285; C1781; J0131; J0696; J1100; J1170; J1650; J2270; J2370; J2405; J2550; J2765; J3010; J3370; Q9967

== ENCOUNTER → 2021-10-23 09:30 | Outpatient (BNVA) | payer OTHER, SELFPAY | PROVIDERS: PCP Registered Nurse; Visit Provider Surgery | DX: Z48.815 Encounter for surgical aftercare following surgery on the digestive system (principal); Z87.19 Personal history of other diseases of the digestive system | CPT/HCPCS: 99212 ==

== ENCOUNTER → 2021-12-10 13:08 | Outpatient (BNVA) | payer OTHER, SELFPAY | PROVIDERS: PCP Registered Nurse; Visit Provider Surgery | DX: Z09 Encounter for follow-up examination after completed treatment for conditions other than malignant neoplasm (principal); Z87.19 Personal history of other diseases of the digestive system | CPT/HCPCS: 99212 ==

== ENCOUNTER 2023-03-17 09:50 | Inpatient (IN) | payer OTHER, SELFPAY ==
--- NOTE | ~2023-03-17 | US_ITS ---
EXAMINATION: US VENOUS ULTRASOUND WITH DOPPLER LOWER EXTREMITY, RIGHT CLINICAL INFORMATION: Edema COMPARISON: None available. TECHNIQUE: Ultrasound of the deep veins is performed from the hip to the calf with compression sonography and color and pulse Doppler assessment. Spectral analysis with color-flow imaging is performed. FINDINGS: There is normal venous compression and respiratory variation and augmented flow. The visualized common femoral vein, superficial femoral vein, profunda femoral vein, popliteal vein, and the trifurcation region shows no evidence of deep venous thrombosis. There is no significant popliteal fossa cyst. Peroneal veins are not visualized by the medical office scheduler. Note is made of prominent lymph nodes in the right groin. Largest measuring 6.2 x 1.5 x 3.2 cm. If the patient's symptoms persist, followup ultrasound in 5 days 7 days might be of value to exclude proximal propagation from a non-visualized calf vein. US/US venous duplex LE RT IMPRESSION: No DVT demonstrated in the right lower extremity. The peroneal veins however are not visualized by the medical office scheduler It should also be noted that there are prominent lymph nodes in the right groin. These may be reactive. Malignancy cannot be excluded
--- NOTE | ~2023-03-17 | XR_ITS ---
EXAMINATION: XR CHEST CLINICAL INFORMATION: Dyspnea. COMPARISON: Chest radiograph 10/07/2021. TECHNIQUE: Frontal view of the chest was obtained. FINDINGS: Stable prominence of the cardiomediastinal silhouette. Mild diffuse interstitial thickening. No focal infiltrate. No pleural effusion or pneumothorax. No acute osseous abnormalities. XR/XR chest 1V IMPRESSION: Mild diffuse interstitial thickening could be accentuated by low lung volumes or related with bronchial thickening in the setting of small airways disease or atypical/viral infections. No focal consolidation. No pleural effusion or pneumothorax.
[2023-03-17 09:56] VITALS: BP 102/56; BP 110/60; PULSE 107; PULSE 70; TEMP 37.4; O2SAT 91; O2SAT 93; BMI 45.9
--- NOTE | 2023-03-17 09:58 | ECG_ITS ---
Test Reason : LOW O2 Blood Pressure : / mmHG Vent. Rate : 106 BPM Atrial Rate : 106 BPM P-R Int : 154 ms QRS Dur : 092 ms QT Int : 350 ms P-R-T Axes : 044 -14 029 degrees QTc Int : 464 ms Sinus tachycardia with Premature atrial complexes Cannot rule out Anterior infarct (cited on or before 07-OCT-2021) Abnormal ECG When compared with ECG of 07-OCT-2021 05:52, Premature atrial complexes are now Present Referred By: Abdullahi Cobb Electronically Signed By:VIRGIL WADE
--- NOTE | 2023-03-17 10:02 | ED_ITS ---
HPI - General Adult General Chief complaint: Extremity Injury, Lower Stated complaint: RLE PAIN FROM WOUND,UNABLE TO AMB PER EMS Source: patient and EMS Mode of arrival: EMS Limitations: no limitations History of Present Illness HPI narrative: 68-year-old male with multiple medical problems presents with right lower extremity pain, swelling. Symptoms seemed of started 3-4 days ago. Has chronic wound that is being treated by Wound Care. He notes increasing drainage from the area. He also notes increasing swelling to the right lower extremity. The pain that he has as moderate to severe. Does not radiate. Worse with movement palpation. Patient has history of PE. He is currently on anticoagulation. He does describe some mild shortness of breath. Related Data Home Medications Medication Instructions Recorded Confirmed ammonium lactate 12 % topical cream 1 applic topical BID PRN Rash 10/07/21 03/17/23 ascorbic acid (vitamin C) 500 mg 1 tab PO DAILY 10/07/21 03/17/23 tablet (Vitamin C) fluticasone 250 mcg-salmeterol 50 1 puff inhalation DAILY 10/07/21 03/17/23 mcg/dose blistr powdr for inhalation furosemide 20 mg tablet 1 tab PO BID 10/07/21 03/17/23 lisinopril 40 mg tablet 1 tab PO DAILY 10/07/21 03/17/23 methadone 10 mg/5 mL oral solution 135 mg PO DAILY 10/07/21 03/18/23 rosuvastatin 10 mg tablet 1 tab PO DAILY 10/07/21 03/17/23 sennosides 8.6 mg-docusate sodium 2 tab PO DAILY PRN Constipation 10/07/21 03/17/23 50 mg tablet (Stool Softener-Stimulant Laxative) vitamin B complex-folic acid ER 1 tab PO DAILY 10/07/21 03/17/23 400 mcg tablet,extended release (Complex B-100) warfarin 3 mg tablet 6 mg PO DAILY 10/07/21 10/07/21 cholecalciferol (vitamin D3) 50 50 mcg PO DAILY 03/17/23 03/17/23 mcg (2,000 unit) tablet doxycycline hyclate 100 mg tablet 100 mg PO BID 03/17/23 03/17/23 omega 9-mnd-alp-fish oil 1,000 mg 1 cap PO DAILY 03/17/23 03/17/23 (120 mg-180 mg) capsule Previous Rx's Medication Instructions Recorded walker #1 ea 10/15/21 Allergies Allergy/AdvReac Type Severity Reaction Status Date / Time ibuprofen Allergy Unknown HIVES/STOMACHE Verified 03/17/23 10:10 UPSET Penicillins Allergy Unknown COMA Verified 03/17/23 10:10 tramadol Allergy Unknown Verified 03/17/23 10:10 PMF Past Medical History Medical History (Updated 03/23/23 @ 13:16 by Rodriguez Marinelli MD) Cellulitis Chronic back pain Chronic venous stasis dermatitis of both lower extremities DVT (deep venous thrombosis) Hepatitis C Hyperlipidemia Hypertensive cardiovascular disease Morbid obesity due to excess calories Narcotic addiction Obesity hypoventilation syndrome Osteoarthritis Pulmonary embolism Sleep apnea Surgical History History of arthroscopy of both knees History of repair of cleft lip Social History Social History Household Members: Other Housing: Apartment Do you presently have visiting nurse or other home services: Yes Patient Tobacco Use Status: Current everyday Tobacco user Tobacco use type: Cigarette Cigarette Packs Per Day: 1 Cigarettes Per Day: 20.0 Years Smoked: 30 e-Cigarette/Vaping Use: Currently Using Second Hand Smoke Exposure: No service: No Current occupational status: disabled Physical Exam ED Vital Signs: Vital Signs - 24 hr 03/17/23 09:56 03/17/23 10:51 03/17/23 12:00 Temperature 99.3 F 99.0 F Pulse Rate 107 H 109 H 101 H Respiratory Rate 20 16 Blood Pressure 102/56 L 103/48 L Pulse Oximetry 91 L 95 Oxygen Delivery Method Room Air Nasal Cannula Oxygen Flow Rate 2.5 BMI result Body Mass Index 45.9 Course Course Course Narrative: 68-year-old male presents with right lower extremity pain, swelling. Denies any significant shortness of breath although does describe wheezing. Examination is potentially consistent with cellulitis versus increasing edema with stasis dermatitis. Ordering an ultrasound to rule out DVT although patient is on anticoagulation. Will check an INR. Will provide patient with intravenous analgesics Reevaluation(s) Reevaluation #1: patient with significant bandemia, WBC, treated with ancef. Discussed results with patient. Currently HD stable. Time: 13:06 Medications Administered Generic Name Dose Route Start Last Admin Trade Name Freq PRN Reason Stop Dose Admin Acetaminophen 650 mg 03/24/23 19:53 03/24/23 20:04 Acetaminophen 325 Mg Tablet PO 650 mg Q8H PRN Administration Pain, Mild (Pain Scale 1-3) Ascorbic Acid 500 mg 03/18/23 09:00 03/27/23 07:45 Ascorbic Acid 500 Mg Tablet PO 500 mg DAILY VARGAS Administration Atorvastatin Calcium 40 mg 03/18/23 09:00 03/27/23 07:44 Atorvastatin Calcium 40 Mg Tablet PO 40 mg DAILY VARGAS Administration Benzocaine 1 appl 03/24/23 08:20 03/24/23 09:22 Benzocaine 20 % Oral Gel 9 Gm Tube MUCOUS MEM 1 appl QID PRN Administration mouth pain Protocol Cephalexin HCl 500 mg 03/25/23 16:00 03/27/23 23:41 Cephalexin 500 Mg Capsule PO 500 mg Q8H VARGAS Administration Fluticasone/Vilanterol 1 puff 03/18/23 09:00 03/27/23 07:47 Fluticasone/Vilanterol 100/25 Blst.W.Dev INHALE 1 puff DAILY VARGAS Administration Hydromorphone HCl 0.5 mg 03/17/23 13:23 03/28/23 06:11 Hydromorphone Hcl 0.5 Mg/0.5 Ml Syringe IVPUSH 0.5 mg Q4H PRN Administration moderate pain Protocol Lactic Acid 1 appl 03/23/23 10:25 03/27/23 20:39 Ammonium Lactate 12 % Lotion 226 Gm Bottle TOPICAL 1 appl BID VARGAS Administration Protocol Lidocaine/Diphenhydr/Alum/Mg/Simeth 10 ml 03/24/23 09:45 03/28/23 06:11 Mag&Al/Sim/Diphenhyd/Lidocaine 10 Ml Oral.Susp PO 10 ml Q4H VARGAS Administration Protocol Methadone HCl 135 mg 03/18/23 14:45 03/27/23 08:11 Methadone Hcl 20 Mg/2 Ml Oral.Conc PO 135 mg DAILY VARGAS Administration Nicotine 14 mg 03/17/23 20:55 03/27/23 07:44 Nicotine 14 Mg Patch.Td24 TRANSDERMA 14 mg DAILY VARGAS Administration Sodium Chloride 3 ml 03/17/23 16:00 03/27/23 20:39 0.9 % Sodium Chloride Flush 3 Ml Syringe IVFLUSH 3 ml QSHIFT VARGAS Administration Vitamin D 50 mcg 03/18/23 09:00 03/27/23 07:44 Cholecalciferol (Vitamin D3) 25 Mcg Tablet PO 50 mcg DAILY VARGAS Administration Warfarin Sodium 4 mg 03/24/23 18:00 03/27/23 17:33 Warfarin Sodium 4 Mg Tablet PO 4 mg DAILY@1800 VARGAS Administration Discontinued Medications Generic Name Dose Route Start Last Admin Trade Name Niya PRN Reason Stop Dose Admin Albuterol Sulfate 5 mg 03/17/23 09:58 03/17/23 10:50 Albuterol Sulfate (0.083%) 2.5 Mg/3 Ml Vial.Neb INHALE 03/17/23 09:59 5 mg ONCE ONE Administration Albuterol/Ipratropium 3 ml 03/17/23 13:29 03/24/23 07:46 Albuterol/Iprat 2.5/0.5mg 3 Ml Ampul.Neb INHALE 3 ml RQ4H WHILE AWAKE PRN Administration sob Hydromorphone HCl 0.5 mg 03/17/23 09:58 03/17/23 10:36 Hydromorphone Hcl 0.5 Mg/0.5 Ml Syringe IVPUSH 03/17/23 09:59 0.5 mg ONCE ONE Administration Protocol Cefazolin Sodium 2 gm/ Sodium 50 mls @ 100 mls/hr 03/17/23 11:02 03/17/23 12:09 Chloride IV 03/17/23 11:31 Not Given ONCE ONE Cefazolin Sodium/Dextrose 2 gm in 50 mls @ 100 mls/hr 03/17/23 12:15 03/22/23 14:16 Ancef IV Infused ONCE VARGAS Infusion Sodium Chloride 1,000 mls @ 999 mls/hr 03/17/23 13:15 03/17/23 14:20 Ns IV 03/17/23 14:15 Infused .Q1H1M VARGAS Infusion Cefazolin Sodium/Dextrose 2 gm in 50 mls @ 100 mls/hr 03/17/23 20:41 03/25/23 05:02 Ancef IV Infused Q8H VARGAS Infusion Lactated Ringer's 1,000 mls @ 80 mls/hr 03/17/23 13:30 03/19/23 08:49 Lr IVCONT Infused .[id number] VARGAS Infusion Lidocaine/Diphenhydr/Alum/Mg/Simeth 10 ml 03/19/23 08:01 03/22/23 10:33 Mag&Al/Sim/Diphenhyd/Lidocaine 10 Ml Oral.Susp PO 10 ml Q4H PRN Administration sore mouth Protocol Phytonadione 2.5 mg 03/18/23 07:10 03/18/23 07:53 Phytonadione (Vit K1) Oral 10 Mg/Ml Ampul PO 03/18/23 07:11 2.5 mg ONCE ONE Administration Polyethylene Glycol 17 gm 03/19/23 09:01 03/19/23 09:27 Polyethylene Glycol 3350 17 Gm Powd.Pack PO 03/19/23 09:02 17 gm ONCE ONE Administration Polyethylene Glycol 17 gm 03/20/23 07:52 03/20/23 08:20 Polyethylene Glycol 3350 17 Gm Powd.Pack PO 03/20/23 07:53 17 gm ONCE ONE Administration Potassium Chloride 40 meq 03/18/23 07:10 03/18/23 07:52 Potassium Chloride Er 20 Meq Tab.Er.Prt PO 03/18/23 07:11 40 meq ONCE ONE Administration Potassium Chloride 40 meq 03/19/23 07:08 03/19/23 08:28 Potassium Chloride Er 20 Meq Tab.Er.Prt PO 03/19/23 07:09 40 meq ONCE ONE Administration Warfarin Sodium 5 mg 03/19/23 18:00 03/20/23 17:08 Warfarin Sodium 5 Mg Tablet PO 5 mg DAILY@1800 VARGAS Administration Medical Decision Making Medical Decision Making [facility] Narrative: 68-year-old male presents with increasing right lower extremity pain, swelling. Currently in wound care. Denies any fevers or chills. However, the pain is so severe he cannot longer ambulate. He reports increasing swelling to the right lower extremity. Exam reveals 3 to 4+ chronic edema on the right and 2 to 3+ on the left. His lungs are without crackles or rales but there are expiratory wheezes. His belly is completely benign without tenderness guarding rebound. Differential diagnosis includes cellulitis, dermatitis, erythematous skin changes, Differential Diagnosis Differential Diagnoses: The differential diagnosis associated with the presentation includes (See above) Admission/Observation Consideration of admission/observation: Escalation of care including admission/observation considered Lab Data [facility] Lab Attestation statement: I reviewed the patient's lab results. 03/17/23 10:26 03/17/23 10:26 Labs: Lab Results 03/17/23 03/17/23 03/17/23 Range/Units 10:26 10: 10:26 WBC 26.1 H (4.8-10.8) X10*3/uL RBC 3.59 L (4.60-5.80) X10*6/uL Hgb 11.8 L D (14.0-18.0) g/dl Hct 33.7 L (42.0-52.0) % MCV 93.9 (80.0-98.0) fL MCH 32.9 (27.0-33.0) pg MCHC 35.0 (31.0-36.0) g/dl RDW 13.0 (11.0-16.0) % Plt Count 151 L D (160-400) X10*3/uL MPV 10.0 (9.4-12.4) fL Immature Gran % (Auto) Cancelled Neut % (Auto) Cancelled Lymph % (Auto) Cancelled Trimble % (Auto) Cancelled Eos % (Auto) Cancelled Baso % (Auto) Cancelled Lymph # (Auto) Cancelled Trimble # (Auto) Cancelled Eos # (Auto) Cancelled Baso # (Auto) Cancelled Abs Immat Gran (auto) Cancelled Absolute Neuts (auto) Cancelled Absolute Nucleated RBC 0.000 (0.0-0.012) X10*3/uL Nucleated RBC % (auto) 0.0 (0.0-0.2) /100WBC Neutrophils % (Manual) 80 H (45-73) % Band Neutrophils % 17 H (3-5) % Lymphocytes % (Manual) 1 L (20-40) % Monocytes % (Manual) 2 (2-11) % Abs Neuts (Manual) 25.3 H (2.0-8.3) X10*3/uL Lymphocytes # (Manual) 0.3 L (1.2-4.9) X10*3/uL Monocytes # (Manual) 0.5 (0.1-1.2) X10*3/uL Platelet Estimate NORMAL (NORMAL) Plt Morphology Comment NORMAL RBC Morphology NORMAL ESR 98 H (0-15) MM/HR PT (10.0-13.1) SEC INR (0.9-1.1) APTT (26.0-36.4) SEC Sodium 130 L (135-145) mmol/L Potassium 3.9 (3.3-5.1) mmol/L Chloride 96 (96-108) mmol/L Carbon Dioxide 22 (22-29) mmol/L Anion Gap 16 (12-20) BUN 50 H (9-16) mg/dL Creatinine 2.70 H (0.5-1.4) mg/dL Estim Creat Clear Calc 38.7 Estimated GFR 24 Random Glucose 70 (60-115) mg/dL Lactic Acid (0.5-2.0) mmol/L Calcium 7.8 L D (8.4-10.2) mg/dL Total Bilirubin 0.8 (0.0-1.0) mg/dL AST 73 H (5-37) U/L ALT 37 (0-40) U/L Alkaline Phosphatase 105 (39-117) U/L Total Creatine Kinase 745 H (38-174) U/L C-Reactive Protein 38.40 H (< or = 0.50) mg/dL Total Protein 5.8 L (6.5-8.0) g/dL Albumin 2.8 L (3.5-5.0) g/dL COVID-19 (SHELLI) (Negative) COVID-19 Clin Com Influenza Type A (AYE) (Negative) Influenza Type B (AYE) (Negative) Influenza A & B Note 03/17/23 03/17/23 03/17/23 Range/Units 10:26 10:26 10:27 WBC (4.8-10.8) X10*3/uL RBC (4.60-5.80) X10*6/uL Hgb (14.0-18.0) g/dl Hct (42.0-52.0) % MCV (80.0-98.0) fL MCH (27.0-33.0) pg MCHC (31.0-36.0) g/dl RDW (11.0-16.0) % Plt Count (160-400) X10*3/uL MPV (9.4-12.4) fL Immature Gran % (Auto) Neut % (Auto) Lymph % (Auto) Trimble % (Auto) Eos % (Auto) Baso % (Auto) Lymph # (Auto) Trimble # (Auto) Eos # (Auto) Baso # (Auto) Abs Immat Gran (auto) Absolute Neuts (auto) Absolute Nucleated RBC (0.0-0.012) X10*3/uL Nucleated RBC % (auto) (0.0-0.2) /100WBC Neutrophils % (Manual) (45-73) % Band Neutrophils % (3-5) % Lymphocytes % (Manual) (20-40) % Monocytes % (Manual) (2-11) % Abs Neuts (Manual) (2.0-8.3) X10*3/uL Lymphocytes # (Manual) (1.2-4.9) X10*3/uL Monocytes # (Manual) (0.1-1.2) X10*3/uL Platelet Estimate (NORMAL) Plt Morphology Comment RBC Morphology ESR (0-15) MM/HR PT 53.4 H (10.0-13.1) SEC INR 4.4 H D (0.9-1.1) APTT 43.1 H (26.0-36.4) SEC Sodium (135-145) mmol/L Potassium (3.3-5.1) mmol/L Chloride (96-108) mmol/L Carbon Dioxide (22-29) mmol/L Anion Gap (12-20) BUN (9-16) mg/dL Creatinine (0.5-1.4) mg/dL Estim Creat Clear Calc Estimated GFR Random Glucose (60-115) mg/dL Lactic Acid 1.4 (0.5-2.0) mmol/L Calcium (8.4-10.2) mg/dL Total Bilirubin (0.0-1.0) mg/dL AST (5-37) U/L ALT (0-40) U/L Alkaline Phosphatase (39-117) U/L Total Creatine Kinase (38-174) U/L C-Reactive Protein (< or = 0.50) mg/dL Total Protein (6.5-8.0) g/dL Albumin (3.5-5.0) g/dL COVID-19 (SHELLI) Negative (Negative) COVID-19 Clin Com See Note Influenza Type A (AYE) (Negative) Influenza Type B (AYE) (Negative) Influenza A & B Note 05/11/23 Range/Units 10:27 WBC (4.8-10.8) X10*3/uL RBC (4.60-5.80) X10*6/uL Hgb (14.0-18.0) g/dl Hct (42.0-52.0) % MCV (80.0-98.0) fL MCH (27.0-33.0) pg MCHC (31.0-36.0) g/dl RDW (11.0-16.0) % Plt Count (160-400) X10*3/uL MPV (9.4-12.4) fL Immature Gran % (Auto) Neut % (Auto) Lymph % (Auto) Trimble % (Auto) Eos % (Auto) Baso % (Auto) Lymph # (Auto) Trimble # (Auto) Eos # (Auto) Baso # (Auto) Abs Immat Gran (auto) Absolute Neuts (auto) Absolute Nucleated RBC (0.0-0.012) X10*3/uL Nucleated RBC % (auto) (0.0-0.2) /100WBC Neutrophils % (Manual) (45-73) % Band Neutrophils % (3-5) % Lymphocytes % (Manual) (20-40) % Monocytes % (Manual) (2-11) % Abs Neuts (Manual) (2.0-8.3) X10*3/uL Lymphocytes # (Manual) (1.2-4.9) X10*3/uL Monocytes # (Manual) (0.1-1.2) X10*3/uL Platelet Estimate (NORMAL) Plt Morphology Comment RBC Morphology ESR (0-15) MM/HR PT (10.0-13.1) SEC INR (0.9-1.1) APTT (26.0-36.4) SEC Sodium (135-145) mmol/L Potassium (3.3-5.1) mmol/L Chloride (96-108) mmol/L Carbon Dioxide (22-29) mmol/L Anion Gap (12-20) BUN (9-16) mg/dL Creatinine (0.5-1.4) mg/dL Estim Creat Clear Calc Estimated GFR Random Glucose (60-115) mg/dL Lactic Acid (0.5-2.0) mmol/L Calcium (8.4-10.2) mg/dL Total Bilirubin (0.0-1.0) mg/dL AST (5-37) U/L ALT (0-40) U/L Alkaline Phosphatase (39-117) U/L Total Creatine Kinase (38-174) U/L C-Reactive Protein (< or = 0.50) mg/dL Total Protein (6.5-8.0) g/dL Albumin (3.5-5.0) g/dL COVID-19 (SHELLI) (Negative) COVID-19 Clin Com Influenza Type A (AYE) Negative (Negative) Influenza Type B (AYE) Negative (Negative) Influenza A & B Note See Note Independent Interpretation I performed an independent interpretation of an: EKG (Sinus tachycardia heart rate 106 with PACs, nonspecific T-wave changes, no acute ST elevations or depressions, possible old anterior wall AZ, no acute ST elevations or depressions) and Plain X-Ray Radiology Impression Discussion of test interpretation with radiology: I have reviewed the radiologist's reading. Independent Historian Clinical information obtained from an independent historian. History obtained from or confirmed by: EMS Discharge Plan Discharge Clinical Impression: YOKASTA (acute kidney injury) Patient Disposition: Admitted As Inpatient Interventions: Admission Worksheet (ED) Last Done: 03/17/23 14:56 Discharge Date/Time: 03/17/23 15:02
[2023-03-17] MEDS: HYDROmorphone HCl 0.5 MG/0.5 ML SYRINGE IVPUSH ×3 (10:36→20:31)
[2023-03-17 10:40] LABS: Hematocrit 33.7 % (42.0-52.0); Hemoglobin 11.8 g/dl (14.0-18.0); Mean Corpuscular Hemoglobin 32.9 pg (27.0-33.0); Mean Corpuscular Volume 93.9 fL (80.0-98.0); Platelet Count 151 X10*3/uL (160-400); Red Blood Count 3.59 X10*6/uL (4.60-5.80); White Blood Count 26.1 X10*3/uL (4.8-10.8)
[2023-03-17 10:46] LABS: Lactic Acid 1.4 mmol/L (0.5-2.0)
[2023-03-17 10:50] LABS: INTERNATIONAL NORM RATIO 4.4 (0.9-1.1); Prothrombin Time 53.4 SEC (10.0-13.1)
[2023-03-17] MEDS: Albuterol Sulfate (0.083%) 2.5 MG/3 ML VIAL.NEB 5 MG INHALE (10:50)
[2023-03-17 10:51] VITALS: PULSE 109; RESP 20; O2SAT 92
[2023-03-17 10:53] LABS: COVID-19 Test Negative (Negative); IDNOW Serial# BCCEAD1C
[2023-03-17 10:53] LABS: IDNOW Serial# 08D9AD1C; Influenza A Negative (Negative); Influenza B2 Negative (Negative); Partial Thromboplastin Time 43.1 SEC (26.0-36.4)
[2023-03-17 10:57] LABS: Alanine Aminotransferase 37 U/L (0-40); Albumin Level 2.8 g/dL (3.5-5.0); Alkaline Phosphatase 105 U/L (39-117); Anion Gap 16 (12-20); Aspartate Amino Transferase 73 U/L (5-37); Bilirubin Total 0.8 mg/dL (0.0-1.0); Blood Urea Nitrogen 50 mg/dL (9-16); Calcium 7.8 mg/dL (8.4-10.2); Carbon Dioxide 22 mmol/L (22-29); Chloride 96 mmol/L (96-108); Creatinine Clr Calc Pharmacy 38.7; Estimated Glomerular Filt Rate 24; Glucose Random 70 mg/dL (60-115); Potassium 3.9 mmol/L (3.3-5.1); Sodium 130 mmol/L (135-145); Total Protein 5.8 g/dL (6.5-8.0)
[2023-03-17 11:23] LABS: Neutrophils Percent Manual 80 % (45-73)
[2023-03-17 11:24] LABS: Erythrocyte Sedimentation Rate 98 MM/HR (0-15)
[2023-03-17 11:25] LABS: Lymphocytes Absolute Manual 0.3 X10*3/uL (1.2-4.9); Lymphocytes Percent Manual 1 % (20-40); Monocytes Absolute Manual 0.5 X10*3/uL (0.1-1.2); Monocytes Percent Manual 2 % (2-11); Neutrophils Absolute Manual 25.3 X10*3/uL (2.0-8.3)
[2023-03-17 11:26] LABS: RBC Morphology NORMAL
[2023-03-17 11:27] LABS: Platelet Estimate NORMAL (NORMAL); Platelet Morphology Comment NORMAL
[2023-03-17 11:28] LABS: Band Neutrophils Percent 17 % (3-5)
--- NOTE | 2023-03-17 11:55 | PC.NURSE ---
pt c/o 08/16 chronic R lower leg pain. pt has chronic bilat lower leg wound and is followed by wound clinic [place] [facility] he states that he started having pain in the right leg over the weekend. pt's leg red/warm/painful to touch. pt has hx of PE, on Coumadin. 20g iv inserted R wrist, labs drawn, meds given as ordered.
[2023-03-17 12:00] VITALS: BP 103/48; PULSE 101; RESP 16; TEMP 37.2; O2SAT 95
--- NOTE | 2023-03-17 12:10 | PC.NURSE ---
ordered dose of Ancef not available in ed pyxis. pharmacy aware and will bring to ed. will follow-up. O2 sat 86-88% r/a. pt placed on 2.5L n/c, satting 94-95%. breathing tx given by R/T. CXR/Venous Duplex done. pt sleeping at this time
[2023-03-17] MEDS: ceFAZolin Sodium/Dextrose,Iso 2 GM/50 ML PIGGYBACK IV ×2 (12:41→19:33)
--- NOTE | 2023-03-17 12:43 | PHA.MEDREC ---
Pharmacy Consult ? Medication Reconciliation Pharmacy has completed the medication reconciliation. Patient had rx bottles with him. Patient has never heard of verapamil, and did not have the bottles. Patient reports he takes 6 mg of warfarin every day. Patient reports his nurse from [facility] picks up methadone from [facility]. RN will need to verified dose. Augustina Varghese, PharmD
[2023-03-17] MEDS: 0.9 % Sodium Chloride 1,000 ML 999 ML IV (13:10)
[2023-03-17 13:27] VITALS: BP 99/54; PULSE 101; RESP 16; O2SAT 96
--- NOTE | 2023-03-17 13:28 | P.HPHOSP_ITS ---
History of Present Illness Date of Service: 03/17/23 Chief Complaint: rle pain 68M PMH morbid obesity with chronic bilateral lymphedema and venous stasis wounds, COPD, PVD, HCV, opiate dependence, HTN, history of VTE, presented with RLE pain. patient follows with wound care at [facility]. he reports getting debridement about 1 week ptp. since then complaining of worsening pain, swelling, and erythema in RLE. pain on day of presentation was 10. he has not been able to eat much, feeling winded, and has been taking about 1gm/day of advil for pain. in ED found to have leukocytosis, YOKASTA Review of Systems Review of Systems: Yes all other systems are reviewed and are negative [facility] Medical History Chronic back pain Chronic venous stasis dermatitis of both lower extremities DVT (deep venous thrombosis) Hepatitis C Hyperlipidemia Hypertensive cardiovascular disease Morbid obesity due to excess calories Narcotic addiction Obesity hypoventilation syndrome Osteoarthritis Pulmonary embolism Sleep apnea Surgical History History of arthroscopy of both knees History of repair of cleft lip Social History Patient Tobacco Use Status: Current everyday Tobacco user Tobacco use type: Cigarette Cigarettes Per Day: 7 Years Smoked: 30 Advance Directives: No Advance Directives Information Provided: No service: No Current occupational status: disabled Meds Allergies Allergy/AdvReac Type Severity Reaction Status Date / Time ibuprofen Allergy Unknown HIVES/STOMACHE Verified 03/17/23 10:10 UPSET Penicillins Allergy Unknown COMA Verified 03/17/23 10:10 tramadol Allergy Unknown Verified 03/17/23 10:10 Active Medications: Current Medications Ascorbic Acid (Ascorbic Acid 500 Mg Tablet) 500 mg PO DAILY [facility] Hydromorphone HCl (Hydromorphone Hcl 0.5 Mg/0.5 Ml Syringe) 0.5 mg IVPUSH Q4H PRN; Protocol PRN Reason: moderate pain Cefazolin Sodium/Dextrose (Ancef) 2 gm in 50 mls @ 100 mls/hr IV ONCE [facility] Last Infusion: 03/17/23 13:09 Dose: Infused Sodium Chloride (Ns) 1,000 mls @ 999 mls/hr IV .Q1H1M [facility] Stop: 03/17/23 14:15 Last Admin: 03/17/23 13:10 Dose: 999 mls/hr Cefazolin Sodium/Dextrose (Ancef) 2 gm in 50 mls @ 100 mls/hr IV Q8H [facility] Lactated Ringer's (Lr) 1,000 mls @ 80 mls/hr IVCONT .[id number] [facility] Non-Formulary Medication ([place] 7-Tgs-Zuf-Fish Oil) 1 cap PO DAILY [facility] Non-Formulary Medication (Fluticasone Propion-Salmeterol) 1 puff INHALE DAILY [facility] Non-Formulary Medication (Rosuvastatin) 1 tab PO DAILY [facility] Pharmacy Consult (Consult Rx Perform Med Rec) 1 each MISCELLANE ONCE PRN PRN Reason: Consult order Sodium Chloride (0.9 % Sodium Chloride Flush 3 Ml Syringe) 3 ml IVFLUSH QSHIFT [facility] Vitamin D (Cholecalciferol (Vitamin D3) 25 Mcg Tablet) 50 mcg PO DAILY [facility] Home Medications Medication Instructions Recorded Confirmed Last Taken Type ammonium lactate 12 % topical cream 1 applic topical BID PRN Rash 10/07/21 03/17/23 10/06/21 History ascorbic acid (vitamin C) 500 mg 1 tab PO DAILY 10/07/21 03/17/23 10/06/21 History tablet (Vitamin C) fluticasone 250 mcg-salmeterol 50 1 puff inhalation DAILY 10/07/21 03/17/23 10/06/21 History mcg/dose blistr powdr for inhalation furosemide 20 mg tablet 1 tab PO BID 10/07/21 03/17/23 10/06/21 History lisinopril 40 mg tablet 1 tab PO DAILY 10/07/21 03/17/23 10/06/21 History methadone 10 mg/5 mL oral solution 135 mg PO DAILY 10/07/21 10/07/21 Unknown History rosuvastatin 10 mg tablet 1 tab PO DAILY 10/07/21 03/17/23 10/06/21 History sennosides 8.6 mg-docusate sodium 2 tab PO DAILY PRN Constipation 10/07/21 03/17/23 10/06/21 History 50 mg tablet (Stool Softener-Stimulant Laxative) vitamin B complex-folic acid ER 1 tab PO DAILY 10/07/21 03/17/23 10/06/21 History 400 mcg tablet,extended release (Complex B-100) warfarin 3 mg tablet 6 mg PO DAILY 10/07/21 10/07/21 10/06/21 10:00 History cholecalciferol (vitamin D3) 50 50 mcg PO DAILY 03/17/23 03/17/23 Unknown History mcg (2,000 unit) tablet doxycycline hyclate 100 mg tablet 100 mg PO BID 03/17/23 03/17/23 Unknown History omega 2-kbf-wzo-fish oil 1,000 mg 1 cap PO DAILY 03/17/23 03/17/23 Unknown History (120 mg-180 mg) capsule Physical Exam Vital Signs and Narrative: Vital Signs: Last Vital Signs Temp 99.0 F 03/17/23 12:00 Pulse 101 H 03/17/23 12:00 Resp 16 03/17/23 12:00 BP 103/48 L 03/17/23 12:00 Pulse Ox 95 03/17/23 12:00 O2 Del Method Nasal Cannula 03/17/23 12:00 O2 Flow Rate 2.5 03/17/23 12:00 BMI result Body Mass Index 45.9 bilateral lymphedema R>L proximal right thigh with more acute erythematous skin changes and warmth, distally darker more chronic looking, good pulses bilateral wheezes Results Labs 03/17/23 10:26 03/17/23 10:26 Labs: Laboratory Results - last 24 hr 03/17/23 03/17/23 03/17/23 10:26 10:26 10:26 MCV 93.9 MCH 32.9 MCHC 35.0 RDW 13.0 Plt Count 151 L D MPV 10.0 Immature Gran % (Auto) Cancelled Neut % (Auto) Cancelled Lymph % (Auto) Cancelled [place] % (Auto) Cancelled Eos % (Auto) Cancelled Baso % (Auto) Cancelled Lymph # (Auto) Cancelled [place] # (Auto) Cancelled Eos # (Auto) Cancelled Baso # (Auto) Cancelled Abs Immat Gran (auto) Cancelled Absolute Neuts (auto) Cancelled Absolute Nucleated RBC 0.000 Nucleated RBC % (auto) 0.0 Neutrophils % (Manual) 80 H Band Neutrophils % 17 H Lymphocytes % (Manual) 1 L Monocytes % (Manual) 2 Abs Neuts (Manual) 25.3 H Lymphocytes # (Manual) 0.3 L Monocytes # (Manual) 0.5 Platelet Estimate NORMAL Plt Morphology Comment NORMAL RBC Morphology NORMAL ESR 98 H PT INR APTT Anion Gap 16 Estim Creat Clear Calc 38.7 Estimated GFR 24 Random Glucose 70 Lactic Acid Calcium 7.8 L D Total Bilirubin 0.8 AST 73 H ALT 37 Alkaline Phosphatase 105 Total Creatine Kinase 745 H C-Reactive Protein 38.40 H Total Protein 5.8 L Albumin 2.8 L COVID-19 (SHELLI) COVID-19 Clin Com Influenza Type A (AYE) Influenza Type B (AYE) Influenza A & B Note 03/17/23 03/17/23 03/17/23 10:26 10:26 10:27 MCV MCH MCHC RDW Plt Count MPV Immature Gran % (Auto) Neut % (Auto) Lymph % (Auto) [place] % (Auto) Eos % (Auto) Baso % (Auto) Lymph # (Auto) [place] # (Auto) Eos # (Auto) Baso # (Auto) Abs Immat Gran (auto) Absolute Neuts (auto) Absolute Nucleated RBC Nucleated RBC % (auto) Neutrophils % (Manual) Band Neutrophils % Lymphocytes % (Manual) Monocytes % (Manual) Abs Neuts (Manual) Lymphocytes # (Manual) Monocytes # (Manual) Platelet Estimate Plt Morphology Comment RBC Morphology ESR PT 53.4 H INR 4.4 H D APTT 43.1 H Anion Gap Estim Creat Clear Calc Estimated GFR Random Glucose Lactic Acid 1.4 Calcium Total Bilirubin AST ALT Alkaline Phosphatase Total Creatine Kinase C-Reactive Protein Total Protein Albumin COVID-19 (SHELLI) Negative COVID-19 Clin Com See Note Influenza Type A (AYE) Influenza Type B (AYE) Influenza A & B Note 03/17/23 10:27 MCV MCH MCHC RDW Plt Count MPV Immature Gran % (Auto) Neut % (Auto) Lymph % (Auto) [place] % (Auto) Eos % (Auto) Baso % (Auto) Lymph # (Auto) [place] # (Auto) Eos # (Auto) Baso # (Auto) Abs Immat Gran (auto) Absolute Neuts (auto) Absolute Nucleated RBC Nucleated RBC % (auto) Neutrophils % (Manual) Band Neutrophils % Lymphocytes % (Manual) Monocytes % (Manual) Abs Neuts (Manual) Lymphocytes # (Manual) Monocytes # (Manual) Platelet Estimate Plt Morphology Comment RBC Morphology ESR PT INR APTT Anion Gap Estim Creat Clear Calc Estimated GFR Random Glucose Lactic Acid Calcium Total Bilirubin AST ALT Alkaline Phosphatase Total Creatine Kinase C-Reactive Protein Total Protein Albumin COVID-19 (SHELLI) COVID-19 Clin Com Influenza Type A (AYE) Negative Influenza Type B (AYE) Negative Influenza A & B Note See Note Imaging Radiologist's Impressions: Impressions Chest X-Ray 03/17/23 11:15 IMPRESSION: Mild diffuse interstitial thickening could be accentuated by low lung volumes or related with bronchial thickening in the setting of small airways disease or atypical/viral infections. No focal consolidation. No pleural effusion or pneumothorax. Venous Duplex 03/17/23 11:23 IMPRESSION: No DVT demonstrated in the right lower extremity. The peroneal veins however are not visualized by the regional clinical research associate It should also be noted that there are prominent lymph nodes in the right groin. These may be reactive. Malignancy cannot be excluded Assessment and Plan (1) Morbid obesity due to excess calories: Status: Acute Plan 68M PMH morbid obesity with chronic bilateral lymphedema and venous stasis wounds, COPD, PVD, HCV, opiate dependence, HTN, history of VTE, presented with RLE pain severe sepsis due to RLE cellulitis and venous stasis wound infection due to chronic bilateral lymphedema due to morbid obesity ancef, id eval follow up cultures YOKASTA differential includes septic ATN, dehydration, NSAID induced, urinary retention hold gerri-i, nsaids ivf check pvr monitor COPD with acute hypoxic respiratory failure and acute decompensation duonebs, home inhaler will hold off on steroids for now opiate dependnce restart methadone once confirmed history of VTE with supratherapeutic inr m Time Spent With Patient Time: Total time managing care of this patient today ____ minutes. Quality Stroke Does the patient have a stroke diagnosis?: No VTE Prior VTE?: Yes VTE Risk Level:: Medical - moderate - high VTE Device Contraindication: Treatment Not Indicated VTE Drug Contraindication: N/A - Med Ordered
[2023-03-17] MEDS: Lactated Ringers 1,000 ML 80 ML IVCONT (13:48)
--- NOTE | 2023-03-17 14:21 | PC.NURSE ---
report given to receiving RN. pt will be transported to room 361. pt aware of plan.
[2023-03-17 15:39] VITALS: BP 98/54; PULSE 100; RESP 18; TEMP 36.5; O2SAT 96
[2023-03-17 16:19] VITALS: BMI 43.6
--- NOTE | 2023-03-17 17:00 | PC.NURSE ---
Pt straight cathed for 260 cc of dark yellow urine
[2023-03-17 17:17] LABS: Appearance Urine Cloudy; Color Urine Dark Yellow; Glucose Urine UA Negative (Negative); Leukocyte Esterase Urine Negative (Negative); Nitrite Urine Negative (Negative); PH 5.5 (5.0-9.0); Specific Gravity - Urine 1.015 (1.005-1.025); UMIC TRIGGER UACC YES; Urine Blood Small (1+) (Negative); Urine Ketones Trace mg/dL (Negative); Urine Protein 100 (2+) mg/dL (Neg-Trace)
[2023-03-17 18:59] LABS: Bacteria Urine Trace (None Seen); Granular Casts Urine Present; RBC Urine 0-2 /HPF (0-2); WBC Urine 0-5 /HPF (0-5)
[2023-03-17] MEDS: Nicotine 14 MG PATCH.TD24 TRANSDERMA (21:04)
[2023-03-17 23:34] VITALS: BP 118/60; PULSE 93; RESP 18; TEMP 37.2; O2SAT 92
[2023-03-18] MEDS: HYDROmorphone HCl 0.5 MG/0.5 ML SYRINGE IVPUSH ×3 (00:59→12:01)
[2023-03-18] MEDS: Lactated Ringers 1,000 ML 80 ML IVCONT ×2 (02:21→14:42)
[2023-03-18] MEDS: ceFAZolin Sodium/Dextrose,Iso 2 GM/50 ML PIGGYBACK IV ×3 (04:02→20:13)
[2023-03-18 06:35] LABS: Hematocrit 30.2 % (42.0-52.0); Hemoglobin 10.3 g/dl (14.0-18.0); Mean Corpuscular HGB Conc 34.1 g/dl (31.0-36.0); Mean Corpuscular Hemoglobin 32.6 pg (27.0-33.0); Mean Corpuscular Volume 95.6 fL (80.0-98.0); Mean Platelet Volume 10.1 fL (9.4-12.4); Platelet Count 169 X10*3/uL (160-400); Prothrombin Time 74.5 SEC (10.0-13.1); Red Blood Count 3.16 X10*6/uL (4.60-5.80); White Blood Count 25.6 X10*3/uL (4.8-10.8)
[2023-03-18 06:54] VITALS: BP 109/56; PULSE 98; RESP 19; TEMP 36.6; O2SAT 93
[2023-03-18 07:07] LABS: Anion Gap 15 (12-20); Blood Urea Nitrogen 56 mg/dL (9-16); Calcium 7.3 mg/dL (8.4-10.2); Carbon Dioxide 21 mmol/L (22-29); Chloride 98 mmol/L (96-108); Creatinine Clr Calc Pharmacy 42.3; Estimated Glomerular Filt Rate 27; Potassium 3.2 mmol/L (3.3-5.1); Sodium 131 mmol/L (135-145)
[2023-03-18] MEDS: Cholecalciferol (Vitamin D3) 25 MCG TABLET 50 MCG PO (07:52)
[2023-03-18] MEDS: Potassium Chloride ER 20 MEQ TAB.ER.PRT 40 MEQ PO (07:52)
[2023-03-18] MEDS: Nicotine 14 MG PATCH.TD24 TRANSDERMA (07:53)
[2023-03-18] MEDS: Ascorbic Acid 500 MG TABLET PO (07:53)
[2023-03-18] MEDS: Atorvastatin Calcium 40 MG TABLET PO (07:53)
[2023-03-18] MEDS: Phytonadione (Vit K1) Oral 10 MG/ML AMPUL 2.5 MG PO (07:53)
[2023-03-18 07:59] LABS: Glucose Fasting 49 mg/dL (60-99)
[2023-03-18] MEDS: 0.9 % Sodium Chloride Flush 3 ML SYRINGE IVFLUSH (08:05)
[2023-03-18] MEDS: Fluticasone/Vilanterol 100/25 BLST.W.DEV 1 PUFF INHALE (08:18)
[2023-03-18 08:24] VITALS: PULSE 98; O2SAT 93
[2023-03-18 08:50] LABS: Glucose, Whole Blood 69 mg/dL (60-115)
--- NOTE | 2023-03-18 08:51 | HO.PM.IMPN ---
Subjective Subjective Date of Service: 03/18/23 Interval History: rle pain Physical Exam Vital Signs: Vital Signs: Last Vital Signs Temp 98 F 03/18/23 06:54 Pulse 98 03/18/23 06:54 Resp 19 03/18/23 06:54 BP 109/56 L 03/18/23 06:54 Pulse Ox 93 03/18/23 06:54 O2 Del Method Room Air 03/18/23 06:54 O2 Flow Rate 2.5 03/17/23 13:27 BMI result Body Mass Index 43.6 bilateral lymphedema R>L proximal right thigh with more acute erythematous skin changes and warmth, distally darker more chronic looking, good pulses Objective Data Active Medications Albuterol/Ipratropium (Albuterol/Iprat 2.5/0.5mg 3 Ml Ampul.Neb) 3 ml INHALE RQ4H WHILE AWAKE PRN PRN Reason: sob Ascorbic Acid (Ascorbic Acid 500 Mg Tablet) 500 mg PO DAILY [facility] Last Admin: 03/18/23 07:53 Dose: 500 mg Documented By: RHONDA Atorvastatin Calcium (Atorvastatin Calcium 40 Mg Tablet) 40 mg PO DAILY [facility] Last Admin: 03/18/23 07:53 Dose: 40 mg Documented By: RHONDA Fluticasone/Vilanterol (Fluticasone/Vilanterol 100/25 Blst.W.Dev) 1 puff INHALE DAILY [facility] Last Admin: 03/18/23 08:18 Dose: 1 puff Documented By: BC Hydromorphone HCl (Hydromorphone Hcl 0.5 Mg/0.5 Ml Syringe) 0.5 mg IVPUSH Q4H PRN; Protocol PRN Reason: moderate pain Last Admin: 03/18/23 04:33 Dose: 0.5 mg Documented By: RANJAN Cefazolin Sodium/Dextrose (Ancef) 2 gm in 50 mls @ 100 mls/hr IV ONCE [facility] Last Infusion: 03/17/23 20:14 Dose: 0 mls/hr Documented By: ELVIA Cefazolin Sodium/Dextrose (Ancef) 2 gm in 50 mls @ 100 mls/hr IV Q8H [facility] Last Infusion: 03/18/23 04:32 Dose: 0 mls/hr Documented By: RANJAN Lactated Ringer's (Lr) 1,000 mls @ 80 mls/hr IVCONT .[id number] [facility] Last Admin: 03/18/23 02:21 Dose: 80 mls/hr Documented By: RANJAN Nicotine (Nicotine 14 Mg Patch.Td24) 14 mg TRANSDERMA DAILY [facility] Last Admin: 03/18/23 07:53 Dose: 14 mg Documented By: RHONDA Pharmacy Consult (Consult Rx Perform Med Rec) 1 each MISCELLANE ONCE PRN PRN Reason: Consult order Sodium Chloride (0.9 % Sodium Chloride Flush 3 Ml Syringe) 3 ml IVFLUSH QSHIFT [facility] Last Admin: 03/18/23 08:05 Dose: 3 ml Documented By: RHONDA Vitamin D (Cholecalciferol (Vitamin D3) 25 Mcg Tablet) 50 mcg PO DAILY [facility] Last Admin: 03/18/23 07:52 Dose: 50 mcg Documented By: RHONDA Labs 03/18/23 05:53 03/18/23 05:53 Labs: Laboratory Results - last 24 hr 03/17/23 03/17/23 03/17/23 10:26 10:26 10:26 MCV 93.9 MCH 32.9 MCHC 35.0 RDW 13.0 Plt Count 151 L D MPV 10.0 Immature Gran % (Auto) Cancelled Neut % (Auto) Cancelled Lymph % (Auto) Cancelled [place] % (Auto) Cancelled Eos % (Auto) Cancelled Baso % (Auto) Cancelled Lymph # (Auto) Cancelled [place] # (Auto) Cancelled Eos # (Auto) Cancelled Baso # (Auto) Cancelled Abs Immat Gran (auto) Cancelled Absolute Neuts (auto) Cancelled Absolute Nucleated RBC 0.000 Nucleated RBC % (auto) 0.0 Neutrophils % (Manual) 80 H Band Neutrophils % 17 H Lymphocytes % (Manual) 1 L Monocytes % (Manual) 2 Abs Neuts (Manual) 25.3 H Lymphocytes # (Manual) 0.3 L Monocytes # (Manual) 0.5 Platelet Estimate NORMAL Plt Morphology Comment NORMAL RBC Morphology NORMAL ESR 98 H PT INR APTT Anion Gap 16 Estim Creat Clear Calc 38.7 Estimated GFR 24 POC Glucose Random Glucose 70 Fasting Glucose Lactic Acid Calcium 7.8 L D Total Bilirubin 0.8 AST 73 H ALT 37 Alkaline Phosphatase 105 Total Creatine Kinase 745 H C-Reactive Protein 38.40 H Total Protein 5.8 L Albumin 2.8 L Urine Color Urine Appearance Urine pH Ur Specific [place] Urine Protein Urine Glucose (UA) Urine Ketones Urine Blood Urine Nitrite Ur Leukocyte Esterase Urine RBC Urine WBC Ur Squamous Epith Cells Urine Bacteria Hyaline Casts Granular Casts COVID-19 (SHELLI) COVID-19 Clin Com Influenza Type A (AYE) Influenza Type B (AYE) Influenza A & B Note 03/17/23 03/17/23 03/17/23 10:26 10:26 10:27 MCV MCH MCHC RDW Plt Count MPV Immature Gran % (Auto) Neut % (Auto) Lymph % (Auto) [place] % (Auto) Eos % (Auto) Baso % (Auto) Lymph # (Auto) [place] # (Auto) Eos # (Auto) Baso # (Auto) Abs Immat Gran (auto) Absolute Neuts (auto) Absolute Nucleated RBC Nucleated RBC % (auto) Neutrophils % (Manual) Band Neutrophils % Lymphocytes % (Manual) Monocytes % (Manual) Abs Neuts (Manual) Lymphocytes # (Manual) Monocytes # (Manual) Platelet Estimate Plt Morphology Comment RBC Morphology ESR PT 53.4 H INR 4.4 H D APTT 43.1 H Anion Gap Estim Creat Clear Calc Estimated GFR POC Glucose Random Glucose Fasting Glucose Lactic Acid 1.4 Calcium Total Bilirubin AST ALT Alkaline Phosphatase Total Creatine Kinase C-Reactive Protein Total Protein Albumin Urine Color Urine Appearance Urine pH Ur Specific [place] Urine Protein Urine Glucose (UA) Urine Ketones Urine Blood Urine Nitrite Ur Leukocyte Esterase Urine RBC Urine WBC Ur Squamous Epith Cells Urine Bacteria Hyaline Casts Granular Casts COVID-19 (SHELLI) Negative COVID-19 Clin Com See Note Influenza Type A (AYE) Influenza Type B (AEY) Influenza A & B Note 03/17/23 03/17/23 03/18/23 10:27 17:00 05:53 MCV 95.6 MCH 32.6 MCHC 34.1 RDW 13.0 Plt Count 169 MPV 10.1 Immature Gran % (Auto) Neut % (Auto) Lymph % (Auto) [place] % (Auto) Eos % (Auto) Baso % (Auto) Lymph # (Auto) [place] # (Auto) Eos # (Auto) Baso # (Auto) Abs Immat Gran (auto) Absolute Neuts (auto) Absolute Nucleated RBC 0.000 Nucleated RBC % (auto) 0.0 Neutrophils % (Manual) Band Neutrophils % Lymphocytes % (Manual) Monocytes % (Manual) Abs Neuts (Manual) Lymphocytes # (Manual) Monocytes # (Manual) Platelet Estimate Plt Morphology Comment RBC Morphology ESR PT INR APTT Anion Gap Estim Creat Clear Calc Estimated GFR POC Glucose Random Glucose Fasting Glucose Lactic Acid Calcium Total Bilirubin AST ALT Alkaline Phosphatase Total Creatine Kinase C-Reactive Protein Total Protein Albumin Urine Color Dark Yellow Urine Appearance Cloudy Urine pH 5.5 Ur Specific [place] 1.015 Urine Protein 100 (2+) H Urine Glucose (UA) Negative Urine Ketones Trace Urine Blood Small (1+) H Urine Nitrite Negative Ur Leukocyte Esterase Negative Urine RBC 0-2 Urine WBC 0-5 Ur Squamous Epith Cells 11-20 Urine Bacteria Trace Hyaline Casts 3-5 Granular Casts Present COVID-19 (SHELLI) COVID-19 Clin Com Influenza Type A (AYE) Negative Influenza Type B (AYE) Negative Influenza A & B Note See Note 03/18/23 03/18/23 03/18/23 05:53 05:53 08:47 MCV MCH MCHC RDW Plt Count MPV Immature Gran % (Auto) Neut % (Auto) Lymph % (Auto) [place] % (Auto) Eos % (Auto) Baso % (Auto) Lymph # (Auto) [place] # (Auto) Eos # (Auto) Baso # (Auto) Abs Immat Gran (auto) Absolute Neuts (auto) Absolute Nucleated RBC Nucleated RBC % (auto) Neutrophils % (Manual) Band Neutrophils % Lymphocytes % (Manual) Monocytes % (Manual) Abs Neuts (Manual) Lymphocytes # (Manual) Monocytes # (Manual) Platelet Estimate Plt Morphology Comment RBC Morphology ESR PT 74.5 H INR 6.0 H* APTT Anion Gap 15 Estim Creat Clear Calc 42.3 Estimated GFR 27 POC Glucose 69 Random Glucose Fasting Glucose 49 L* Lactic Acid Calcium 7.3 L D Total Bilirubin AST ALT Alkaline Phosphatase Total Creatine Kinase C-Reactive Protein Total Protein Albumin Urine Color Urine Appearance Urine pH Ur Specific [place] Urine Protein Urine Glucose (UA) Urine Ketones Urine Blood Urine Nitrite Ur Leukocyte Esterase Urine RBC Urine WBC Ur Squamous Epith Cells Urine Bacteria Hyaline Casts Granular Casts COVID-19 (SHELLI) COVID-19 Clin Com Influenza Type A (AYE) Influenza Type B (AYE) Influenza A & B Note Assessment and Plan (1) YOKASTA (acute kidney injury): Status: Acute Plan 68M PMH morbid obesity with chronic bilateral lymphedema and venous stasis wounds, COPD, PVD, HCV, opiate dependence, HTN, history of VTE, presented with RLE pain severe sepsis due to RLE cellulitis and venous stasis wound infection due to chronic bilateral lymphedema due to morbid obesity ancef, id eval follow up cultures YOKASTA differential includes septic ATN, dehydration, NSAID induced holding gerri-i, nsaids ivf monitor COPD with acute hypoxic respiratory failure and acute decompensation duonebs, home inhaler now on room air opiate dependence restart methadone once confirmed history of VTE with supratherapeutic inr giving 2.5mg vit K, monitor morbid obesity weight loss recommended htn lisinpirl on hold hld statin dvt prophylaxis - on coumadin full code reason for continued hospitalization: still with singificant leukocytosis and erythema Time Spent With Patient Time: Total time managing care of this patient today ____ minutes. Quality Stroke Does the patient have a stroke diagnosis?: No VTE Prior VTE?: Yes VTE Risk Level:: Medical - moderate - high VTE Device Contraindication: Treatment Not Indicated VTE Drug Contraindication: N/A - Med Ordered
--- NOTE | 2023-03-18 10:52 | HE.PHANOTE ---
METHADONE CONFIRMATION SHEET RECEIVED FROM [facility] FROM [facility]
[2023-03-18 11:20] LABS: Glucose, Whole Blood 96 mg/dL (60-115)
[2023-03-18] MEDS: methADONE HCl 20 MG/2 ML ORAL.CONC 135 MG PO (14:44)
--- NOTE | 2023-03-18 14:57 | MHC.CM.PN ---
Addendum entered by Marine Gr 03/19/23 12:47: PT DOES NOT KNOW THE NAME OF HIS PCP HE REPORTS HE GOES TO [facility] IN [place] MESSAGE SENT TO ALLIED REQUESTING PCP INFORMATION Addendum entered by Lorena Grossman 03/18/23 15:03: Methadone is obtained from [facility]. Original Note: IMM 03/18/23 Male 68 DX YOKASTA Cellulitis Lives with a friend. He uses a cane and a walker prn. He has a WOUND CARE CENTER CONSULTANT thru [facility]. [facility] provides nursing services for Medication, including Methadone. DP Home resume [facility] and [facility] C[facility] CONSULT[facility]. He will arrange for a friend to provide transportation home.
[2023-03-18 15:39] VITALS: BP 104/55; PULSE 97; RESP 18; TEMP 36.8; O2SAT 91
[2023-03-18 16:19] LABS: Glucose, Whole Blood 86 mg/dL (60-115)
[2023-03-18 20:20] LABS: Glucose, Whole Blood 162 mg/dL (60-115)
[2023-03-18 23:28] VITALS: BP 123/59; PULSE 92; RESP 18; TEMP 36.6; O2SAT 94
[2023-03-19] MEDS: HYDROmorphone HCl 0.5 MG/0.5 ML SYRINGE IVPUSH ×4 (02:21→21:58)
[2023-03-19] MEDS: Lactated Ringers 1,000 ML 80 ML IVCONT (03:11)
[2023-03-19] MEDS: ceFAZolin Sodium/Dextrose,Iso 2 GM/50 ML PIGGYBACK IV ×3 (04:40→20:09)
[2023-03-19 06:26] LABS: Hematocrit 30.5 % (42.0-52.0); Hemoglobin 10.5 g/dl (14.0-18.0); Mean Corpuscular HGB Conc 34.4 g/dl (31.0-36.0); Mean Corpuscular Hemoglobin 33.2 pg (27.0-33.0); Mean Corpuscular Volume 96.5 fL (80.0-98.0); Platelet Count 187 X10*3/uL (160-400); Red Blood Count 3.16 X10*6/uL (4.60-5.80); Red Cell Distribution Width 13.2 % (11.0-16.0); White Blood Count 25.2 X10*3/uL (4.8-10.8)
[2023-03-19 06:36] LABS: INTERNATIONAL NORM RATIO 2.3 (0.9-1.1); Prothrombin Time 27.1 SEC (10.0-13.1)
[2023-03-19 06:42] LABS: Anion Gap 15 (12-20); Blood Urea Nitrogen 48 mg/dL (9-16); Calcium 7.5 mg/dL (8.4-10.2); Carbon Dioxide 23 mmol/L (22-29); Chloride 99 mmol/L (96-108); Creatinine Clr Calc Pharmacy 56.1; Estimated Glomerular Filt Rate 38; Glucose Fasting 75 mg/dL (60-99); Potassium 3.2 mmol/L (3.3-5.1); Sodium 134 mmol/L (135-145)
[2023-03-19 07:31] VITALS: BP 105/58; PULSE 94; RESP 18; TEMP 36.7; O2SAT 92
[2023-03-19 07:40] LABS: Glucose, Whole Blood 80 mg/dL (60-115)
[2023-03-19] MEDS: Fluticasone/Vilanterol 100/25 BLST.W.DEV 1 PUFF INHALE (08:05)
[2023-03-19 08:07] VITALS: PULSE 92; RESP 20; O2SAT 92
[2023-03-19] MEDS: Cholecalciferol (Vitamin D3) 25 MCG TABLET 50 MCG PO (08:27)
[2023-03-19] MEDS: Ascorbic Acid 500 MG TABLET PO (08:27)
[2023-03-19] MEDS: Atorvastatin Calcium 40 MG TABLET PO (08:27)
[2023-03-19] MEDS: Potassium Chloride ER 20 MEQ TAB.ER.PRT 40 MEQ PO (08:28)
[2023-03-19] MEDS: methADONE HCl 20 MG/2 ML ORAL.CONC 135 MG PO (08:29)
[2023-03-19] MEDS: Nicotine 14 MG PATCH.TD24 TRANSDERMA (08:34)
--- NOTE | 2023-03-19 08:37 | P.PNIM_ITS ---
Subjective Subjective Date of Service: 03/19/23 Interval History: sore throat Physical Exam Vital Signs: Vital Signs: Last Vital Signs Temp 98.0 F 03/19/23 07:31 Pulse 92 03/19/23 08:07 Resp 20 03/19/23 08:07 BP 105/58 L 03/19/23 07:31 Pulse Ox 92 03/19/23 07:31 O2 Del Method Nasal Cannula 03/19/23 07:31 O2 Flow Rate 2.0 03/19/23 07:31 BMI result Body Mass Index 43.6 bilateral lymphedema R>L proximal right thigh with more acute erythematous skin changes and warmth, distally darker more chronic looking, good pulses Objective Data Active Medications Albuterol/Ipratropium (Albuterol/Iprat 2.5/0.5mg 3 Ml Ampul.Neb) 3 ml INHALE RQ4H WHILE AWAKE PRN PRN Reason: sob Ascorbic Acid (Ascorbic Acid 500 Mg Tablet) 500 mg PO DAILY [facility] Last Admin: 03/19/23 08:27 Dose: 500 mg Documented By: ELVIA Atorvastatin Calcium (Atorvastatin Calcium 40 Mg Tablet) 40 mg PO DAILY [facility] Last Admin: 03/19/23 08:27 Dose: 40 mg Documented By: ELVIA Fluticasone/Vilanterol (Fluticasone/Vilanterol 100/25 Blst.W.Dev) 1 puff INHALE DAILY [facility] Last Admin: 03/19/23 08:05 Dose: 1 puff Documented By: BRESCATRACHITO Hydromorphone HCl (Hydromorphone Hcl 0.5 Mg/0.5 Ml Syringe) 0.5 mg IVPUSH Q4H PRN; Protocol PRN Reason: moderate pain Last Admin: 03/19/23 02:21 Dose: 0.5 mg Documented By: RANJAN Cefazolin Sodium/Dextrose (Ancef) 2 gm in 50 mls @ 100 mls/hr IV ONCE [facility] Last Infusion: 03/18/23 12:32 Dose: 0 mls/hr Documented By: RHONDA Cefazolin Sodium/Dextrose (Ancef) 2 gm in 50 mls @ 100 mls/hr IV Q8H [facility] Last Infusion: 03/19/23 05:10 Dose: 0 mls/hr Documented By: HO.CHOIP Lidocaine/Diphenhydr/Alum/Mg/Simeth (Mag&Al/Sim/Diphenhyd/Lidocaine 10 Ml Oral.Susp) 10 ml PO Q4H PRN; Protocol PRN Reason: sore mouth Methadone HCl (Methadone Hcl 20 Mg/2 Ml Oral.Conc) 135 mg PO DAILY [facility] Last Admin: 03/19/23 08:29 Dose: 135 mg Documented By: ELVIA Nicotine (Nicotine 14 Mg Patch.Td24) 14 mg TRANSDERMA DAILY [facility] Last Admin: 03/19/23 08:34 Dose: 14 mg Documented By: ELVIA Pharmacy Consult (Consult Rx Perform Med Rec) 1 each MISCELLANE ONCE PRN PRN Reason: Consult order Sodium Chloride (0.9 % Sodium Chloride Flush 3 Ml Syringe) 3 ml IVFLUSH QSHIFT [facility] Last Admin: 03/19/23 08:34 Dose: Not Given Documented By: ELVIA Non-Admin Reason: IV Running Vitamin D (Cholecalciferol (Vitamin D3) 25 Mcg Tablet) 50 mcg PO DAILY [facility] Last Admin: 03/19/23 08:27 Dose: 50 mcg Documented By: ELVIA Labs 03/19/23 05:51 03/19/23 05:51 Labs: Laboratory Results - last 24 hr 03/18/23 03/18/23 03/18/23 08:47 11:10 16:17 MCV MCH MCHC RDW Plt Count MPV Absolute Nucleated RBC Nucleated RBC % (auto) PT INR Anion Gap Estim Creat Clear Calc Estimated GFR POC Glucose 69 96 86 Fasting Glucose Calcium 03/18/23 03/19/23 03/19/23 20:16 05:51 05:51 MCV 96.5 MCH 33.2 H MCHC 34.4 RDW 13.2 Plt Count 187 MPV 10.0 Absolute Nucleated RBC 0.000 Nucleated RBC % (auto) 0.0 PT INR Anion Gap 15 Estim Creat Clear Calc 56.1 Estimated GFR 38 POC Glucose 162 H Fasting Glucose 75 Calcium 7.5 L 03/19/23 03/19/23 05:51 07:36 MCV MCH MCHC RDW Plt Count MPV Absolute Nucleated RBC Nucleated RBC % (auto) PT 27.1 H INR 2.3 H D Anion Gap Estim Creat Clear Calc Estimated GFR POC Glucose 80 Fasting Glucose Calcium Microbiology Microbiology Results: Microbiology 03/17/23 10:26 Blood Culture - Preliminary Blood - Venous No growth after 24 hours. 03/17/23 10:26 Blood Culture - Preliminary Blood - Venous No growth after 24 hours. Assessment and Plan (1) YOKASTA (acute kidney injury): Status: Acute Plan 68M PMH morbid obesity with chronic bilateral lymphedema and venous stasis wounds, COPD, PVD, HCV, opiate dependence, HTN, history of VTE, presented with RLE pain severe sepsis due to RLE cellulitis and venous stasis wound infection due to chronic bilateral lymphedema due to morbid obesity ancef, id following follow up cultures - negative to date YOKASTA differential includes septic ATN, dehydration, NSAID induced holding gerri-i, nsaids monitor, improving, will dc ivf COPD with acute hypoxic respiratory failure and acute decompensation duonebs, home inhaler opiate dependence methadone history of VTE with supratherapeutic inr given 2.5mg vit K will restart coumadin, monitor inr morbid obesity weight loss recommended htn lisinpril on hold hld statin dvt prophylaxis - on coumadin full code reason for continued hospitalization: still with singificant leukocytosis and e rythema Time Spent With Patient Time: Total time managing care of this patient today ____ minutes. Quality Stroke Does the patient have a stroke diagnosis?: No VTE Prior VTE?: Yes VTE Risk Level:: Medical - moderate - high VTE Device Contraindication: Treatment Not Indicated VTE Drug Contraindication: N/A - Med Ordered
[2023-03-19] MEDS: polyethylene glycoL 3350 17 GM POWD.PACK PO (09:27)
[2023-03-19 11:24] LABS: Glucose, Whole Blood 102 mg/dL (60-115)
[2023-03-19 15:41] VITALS: BP 131/59; PULSE 92; RESP 18; TEMP 37.3; O2SAT 93
[2023-03-19 16:07] LABS: Glucose, Whole Blood 96 mg/dL (60-115)
[2023-03-19 16:41] VITALS: TEMP 36.7
[2023-03-19] MEDS: Warfarin Sodium 5 MG TABLET PO (17:38)
[2023-03-19] MEDS: 0.9 % Sodium Chloride Flush 3 ML SYRINGE IVFLUSH ×2 (17:39→21:59)
[2023-03-19 20:27] LABS: Glucose, Whole Blood 118 mg/dL (60-115)
[2023-03-20 02:25] VITALS: BP 125/73; PULSE 95; RESP 17; TEMP 36.2; O2SAT 93
[2023-03-20] MEDS: HYDROmorphone HCl 0.5 MG/0.5 ML SYRINGE IVPUSH ×3 (02:48→23:17)
[2023-03-20] MEDS: ceFAZolin Sodium/Dextrose,Iso 2 GM/50 ML PIGGYBACK IV ×3 (04:25→20:07)
[2023-03-20 06:58] LABS: INTERNATIONAL NORM RATIO 2.8 (0.9-1.1); Prothrombin Time 33.4 SEC (10.0-13.1)
[2023-03-20 07:02] LABS: Anion Gap 15 (12-20); Blood Urea Nitrogen 40 mg/dL (9-16); Calcium 7.7 mg/dL (8.4-10.2); Carbon Dioxide 24 mmol/L (22-29); Chloride 99 mmol/L (96-108); Creatinine Clr Calc Pharmacy 73.1; Estimated Glomerular Filt Rate 51; Glucose Fasting 79 mg/dL (60-99); Potassium 3.8 mmol/L (3.3-5.1); Sodium 134 mmol/L (135-145)
[2023-03-20 07:03] LABS: Hematocrit 33.1 % (42.0-52.0); Hemoglobin 11.1 g/dl (14.0-18.0); Mean Corpuscular HGB Conc 33.5 g/dl (31.0-36.0); Mean Corpuscular Volume 95.4 fL (80.0-98.0); Mean Platelet Volume 9.7 fL (9.4-12.4); Platelet Count 235 X10*3/uL (160-400); Red Blood Count 3.47 X10*6/uL (4.60-5.80); Red Cell Distribution Width 13.4 % (11.0-16.0); White Blood Count 19.4 X10*3/uL (4.8-10.8)
[2023-03-20 07:28] VITALS: BP 114/59; PULSE 89; RESP 17; TEMP 36.9; O2SAT 96
[2023-03-20 07:45] LABS: Glucose, Whole Blood 76 mg/dL (60-115)
[2023-03-20] MEDS: methADONE HCl 20 MG/2 ML ORAL.CONC 135 MG PO (08:18)
--- NOTE | 2023-03-20 08:18 | P.PNIM_ITS ---
Subjective Subjective Date of Service: 03/20/23 Interval History: improving Physical Exam Vital Signs: Vital Signs: Last Vital Signs Temp 98.5 F 03/20/23 07:28 Pulse 89 03/20/23 07:28 Resp 17 03/20/23 07:28 BP 114/59 L 03/20/23 07:28 Pulse Ox 96 03/20/23 07:28 O2 Del Method Room Air 03/20/23 07:28 O2 Flow Rate 2 03/20/23 02:25 BMI result Body Mass Index 43.6 bilateral lymphedema R>L proximal right thigh with more acute erythematous skin changes and warmth, distally darker more chronic looking, good pulses Objective Data Active Medications Albuterol/Ipratropium (Albuterol/Iprat 2.5/0.5mg 3 Ml Ampul.Neb) 3 ml INHALE RQ4H WHILE AWAKE PRN PRN Reason: sob Ascorbic Acid (Ascorbic Acid 500 Mg Tablet) 500 mg PO DAILY [facility] Last Admin: 03/19/23 08:27 Dose: 500 mg Documented By: ELVIA Atorvastatin Calcium (Atorvastatin Calcium 40 Mg Tablet) 40 mg PO DAILY [facility] Last Admin: 03/19/23 08:27 Dose: 40 mg Documented By: ELVIA Fluticasone/Vilanterol (Fluticasone/Vilanterol 100/25 Blst.W.Dev) 1 puff INHALE DAILY [facility] Last Admin: 03/19/23 08:05 Dose: 1 puff Documented By: BRESCATRACHITO Hydromorphone HCl (Hydromorphone Hcl 0.5 Mg/0.5 Ml Syringe) 0.5 mg IVPUSH Q4H PRN; Protocol PRN Reason: moderate pain Last Admin: 03/20/23 02:48 Dose: 0.5 mg Documented By: OMID Cefazolin Sodium/Dextrose (Ancef) 2 gm in 50 mls @ 100 mls/hr IV ONCE [facility] Last Infusion: 03/18/23 12:32 Dose: 0 mls/hr Documented By: RHONDA Cefazolin Sodium/Dextrose (Ancef) 2 gm in 50 mls @ 100 mls/hr IV Q8H [facility] Last Infusion: 03/20/23 04:58 Dose: 0 mls/hr Documented By: OMID Lidocaine/Diphenhydr/Alum/Mg/Simeth (Mag&Al/Sim/Diphenhyd/Lidocaine 10 Ml Oral.Susp) 10 ml PO Q4H PRN; Protocol PRN Reason: sore mouth Methadone HCl (Methadone Hcl 20 Mg/2 Ml Oral.Conc) 135 mg PO DAILY [facility] Last Admin: 03/19/23 08:29 Dose: 135 mg Documented By: ELVIA Nicotine (Nicotine 14 Mg Patch.Td24) 14 mg TRANSDERMA DAILY [facility] Last Admin: 03/19/23 08:34 Dose: 14 mg Documented By: ELVIA Pharmacy Consult (Consult Rx Perform Med Rec) 1 each MISCELLANE ONCE PRN PRN Reason: Consult order Sodium Chloride (0.9 % Sodium Chloride Flush 3 Ml Syringe) 3 ml IVFLUSH QSHIFT [facility] Last Admin: 03/19/23 21:59 Dose: 3 ml Documented By: OMID Vitamin D (Cholecalciferol (Vitamin D3) 25 Mcg Tablet) 50 mcg PO DAILY [facility] Last Admin: 03/19/23 08:27 Dose: 50 mcg Documented By: ELVIA Warfarin Sodium (Warfarin Sodium 5 Mg Tablet) 5 mg PO DAILY@1800 [facility] Last Admin: 03/19/23 17:38 Dose: 5 mg Documented By: ELVIA Labs 03/20/23 06:06 03/20/23 06:06 Labs: Laboratory Results - last 24 hr 03/19/23 03/19/23 03/19/23 11:13 16:02 20:23 MCV MCH MCHC RDW Plt Count MPV Absolute Nucleated RBC Nucleated RBC % (auto) PT INR Anion Gap Estim Creat Clear Calc Estimated GFR POC Glucose 102 96 118 H Fasting Glucose Calcium 03/20/23 03/20/23 03/20/23 06:06 06:06 06:06 MCV 95.4 MCH 32.0 MCHC 33.5 RDW 13.4 Plt Count 235 D MPV 9.7 Absolute Nucleated RBC 0.000 Nucleated RBC % (auto) 0.0 PT 33.4 H INR 2.8 H Anion Gap 15 Estim Creat Clear Calc 73.1 Estimated GFR 51 POC Glucose Fasting Glucose 79 Calcium 7.7 L 03/20/23 07:31 MCV MCH MCHC RDW Plt Count MPV Absolute Nucleated RBC Nucleated RBC % (auto) PT INR Anion Gap Estim Creat Clear Calc Estimated GFR POC Glucose 76 Fasting Glucose Calcium Microbiology Microbiology Results: Microbiology 03/17/23 10:26 Blood Culture - Preliminary Blood - Venous No growth after 48 hours. 03/17/23 10:26 Blood Culture - Preliminary Blood - Venous No growth after 48 hours. Assessment and Plan (1) YOKASTA (acute kidney injury): Status: Acute Plan 68M PMH morbid obesity with chronic bilateral lymphedema and venous stasis wounds, COPD, PVD, HCV, opiate dependence, HTN, history of VTE, presented with RLE pain severe sepsis due to RLE cellulitis and venous stasis wound infection due to chronic bilateral lymphedema due to morbid obesity ancef, id following follow up cultures - negative to date some improvement PT eval YOKASTA differential includes septic ATN, dehydration, NSAID induced holding gerri-i, nsaids monitor, improving COPD with acute hypoxic respiratory failure and acute decompensation duonebs, home inhaler opiate dependence methadone history of VTE with supratherapeutic inr given 2.5mg vit K will restart coumadin, monitor inr morbid obesity weight loss recommended htn lisinpril on hold hld statin dvt prophylaxis - on coumadin full code reason for continued hospitalization: still with singificant leukocytosis and erythema Time Spent With Patient Time: Total time managing care of this patient today ____ minutes. Quality Stroke Does the patient have a stroke diagnosis?: No VTE Prior VTE?: Yes VTE Risk Level:: Medical - moderate - high VTE Device Contraindication: Treatment Not Indicated VTE Drug Contraindication: N/A - Med Ordered
[2023-03-20] MEDS: polyethylene glycoL 3350 17 GM POWD.PACK PO (08:20)
[2023-03-20] MEDS: Nicotine 14 MG PATCH.TD24 TRANSDERMA (08:20)
[2023-03-20] MEDS: Atorvastatin Calcium 40 MG TABLET PO (08:20)
[2023-03-20] MEDS: Cholecalciferol (Vitamin D3) 25 MCG TABLET 50 MCG PO (08:20)
[2023-03-20] MEDS: Ascorbic Acid 500 MG TABLET PO (08:20)
[2023-03-20] MEDS: 0.9 % Sodium Chloride Flush 3 ML SYRINGE IVFLUSH ×3 (08:21→20:07)
[2023-03-20] MEDS: Fluticasone/Vilanterol 100/25 BLST.W.DEV 1 PUFF INHALE (08:25)
[2023-03-20 08:27] VITALS: PULSE 89; RESP 20; O2SAT 96
[2023-03-20 11:22] LABS: Glucose, Whole Blood 104 mg/dL (60-115)
[2023-03-20 15:24] VITALS: BP 125/58; PULSE 94; RESP 18; TEMP 37.7; O2SAT 90
[2023-03-20 16:15] LABS: Glucose, Whole Blood 85 mg/dL (60-115)
[2023-03-20] MEDS: Warfarin Sodium 5 MG TABLET PO (17:08)
[2023-03-20 17:11] VITALS: TEMP 36.8
[2023-03-20 20:00] VITALS: BP 105/57; PULSE 87; RESP 17; TEMP 36.2; O2SAT 91
[2023-03-20 20:17] LABS: Glucose, Whole Blood 119 mg/dL (60-115)
--- NOTE | 2023-03-20 21:24 | P.CNID_ITS ---
History of Present Illness Data of Consult Service Date: 03/18/23 Requesting physician: Ricardo Alexander Primary Care Provider: Unknown Physician HPI Reason for consult: RLE erythema He presents with RLE redness and pain for last 3-4 days worsening. He has no fever or chills at this time He has been seen by Wound Care. He has staph aureus and Group G strep Review of Systems Review of Systems: Yes all other systems are reviewed and are negative PMFSH Past Medical History Medical History (Updated 03/20/23 @ 21:29 by Brunilda Saleh MD) Cellulitis Chronic back pain Chronic venous stasis dermatitis of both lower extremities DVT (deep venous thrombosis) Hepatitis C Hyperlipidemia Hypertensive cardiovascular disease Morbid obesity due to excess calories Narcotic addiction Obesity hypoventilation syndrome Osteoarthritis Pulmonary embolism Sleep apnea Family History Family history: reviewed and not pertinent Surgical History Surgical History History of arthroscopy of both knees History of repair of cleft lip Social History Social History Household Members: Other Housing: Apartment Do you presently have visiting nurse or other home services: Yes Patient Tobacco Use Status: Current everyday Tobacco user Tobacco use type: Cigarette Cigarette Packs Per Day: 1 Cigarettes Per Day: 20.0 Years Smoked: 30 e-Cigarette/Vaping Use: Currently Using Second Hand Smoke Exposure: No service: No Current occupational status: disabled Meds Allergies Allergy/AdvReac Type Severity Reaction Status Date / Time ibuprofen Allergy Unknown HIVES/STOMACHE Verified 03/17/23 10:10 UPSET Penicillins Allergy Unknown COMA Verified 03/17/23 10:10 tramadol Allergy Unknown Verified 03/17/23 10:10 Active Medications: Current Medications Albuterol/Ipratropium (Albuterol/Iprat 2.5/0.5mg 3 Ml Ampul.Neb) 3 ml INHALE RQ4H WHILE AWAKE PRN PRN Reason: sob Ascorbic Acid (Ascorbic Acid 500 Mg Tablet) 500 mg PO DAILY [facility] Last Admin: 03/20/23 08:20 Dose: 500 mg Atorvastatin Calcium (Atorvastatin Calcium 40 Mg Tablet) 40 mg PO DAILY [facility] Last Admin: 03/20/23 08:20 Dose: 40 mg Fluticasone/Vilanterol (Fluticasone/Vilanterol 100/25 Blst.W.Dev) 1 puff INHALE DAILY [facility] Last Admin: 03/20/23 08:25 Dose: 1 puff Hydromorphone HCl (Hydromorphone Hcl 0.5 Mg/0.5 Ml Syringe) 0.5 mg IVPUSH Q4H PRN; Protocol PRN Reason: moderate pain Last Admin: 03/20/23 14:40 Dose: 0.5 mg Cefazolin Sodium/Dextrose (Ancef) 2 gm in 50 mls @ 100 mls/hr IV ONCE [facility] Last Infusion: 03/20/23 13:37 Dose: Infused Cefazolin Sodium/Dextrose (Ancef) 2 gm in 50 mls @ 100 mls/hr IV Q8H [facility] Last Infusion: 03/20/23 20:44 Dose: Infused Lidocaine/Diphenhydr/Alum/Mg/Simeth (Mag&Al/Sim/Diphenhyd/Lidocaine 10 Ml Oral.Susp) 10 ml PO Q4H PRN; Protocol PRN Reason: sore mouth Methadone HCl (Methadone Hcl 20 Mg/2 Ml Oral.Conc) 135 mg PO DAILY [facility] Last Admin: 03/20/23 08:18 Dose: 135 mg Nicotine (Nicotine 14 Mg Patch.Td24) 14 mg TRANSDERMA DAILY [facility] Last Admin: 03/20/23 08:20 Dose: 14 mg Pharmacy Consult (Consult Rx Perform Med Rec) 1 each MISCELLANE ONCE PRN PRN Reason: Consult order Sodium Chloride (0.9 % Sodium Chloride Flush 3 Ml Syringe) 3 ml IVFLUSH QSHIFT [facility] Last Admin: 03/20/23 20:07 Dose: 3 ml Vitamin D (Cholecalciferol (Vitamin D3) 25 Mcg Tablet) 50 mcg PO DAILY [facility] Last Admin: 03/20/23 08:20 Dose: 50 mcg Warfarin Sodium (Warfarin Sodium 5 Mg Tablet) 5 mg PO DAILY@1800 [facility] Last Admin: 03/20/23 17:08 Dose: 5 mg Home Medications Medication Instructions Recorded Confirmed Last Taken Type ammonium lactate 12 % topical cream 1 applic topical BID PRN Rash 10/07/21 03/17/23 10/06/21 History ascorbic acid (vitamin C) 500 mg 1 tab PO DAILY 10/07/21 03/17/23 10/06/21 History tablet (Vitamin C) fluticasone 250 mcg-salmeterol 50 1 puff inhalation DAILY 10/07/21 03/17/23 10/06/21 History mcg/dose blistr powdr for inhalation furosemide 20 mg tablet 1 tab PO BID 10/07/21 03/17/23 10/06/21 History lisinopril 40 mg tablet 1 tab PO DAILY 10/07/21 03/17/23 10/06/21 History methadone 10 mg/5 mL oral solution 135 mg PO DAILY 10/07/21 03/18/23 03/17/23 History rosuvastatin 10 mg tablet 1 tab PO DAILY 10/07/21 03/17/23 10/06/21 History sennosides 8.6 mg-docusate sodium 2 tab PO DAILY PRN Constipation 10/07/21 03/17/23 10/06/21 History 50 mg tablet (Stool Softener-Stimulant Laxative) vitamin B complex-folic acid ER 1 tab PO DAILY 10/07/21 03/17/23 10/06/21 History 400 mcg tablet,extended release (Complex B-100) warfarin 3 mg tablet 6 mg PO DAILY 10/07/21 10/07/21 10/06/21 10:00 History cholecalciferol (vitamin D3) 50 50 mcg PO DAILY 03/17/23 03/17/23 Unknown History mcg (2,000 unit) tablet doxycycline hyclate 100 mg tablet 100 mg PO BID 03/17/23 03/17/23 Unknown History omega 3-qmp-kcq-fish oil 1,000 mg 1 cap PO DAILY 03/17/23 03/17/23 Unknown History (120 mg-180 mg) capsule Physical Exam Vital Signs: Vital Signs: Last Vital Signs Temp 97.2 F 03/20/23 20:00 Pulse 87 03/20/23 20:00 Resp 17 03/20/23 20:00 BP 105/57 L 03/20/23 20:00 Pulse Ox 91 L 03/20/23 20:00 O2 Del Method Nasal Cannula 03/20/23 20:00 O2 Flow Rate 2 03/20/23 20:00 BMI result Body Mass Index 43.6 Const: General: cooperative HEENT: Head: Yes normal to inspection Face and sinus: Yes normal facial exam Mouth: Normal oral and palatal mucosa present Teeth and gingiva: dentition normal Eyes: General: appearance normal, both eyes and all related structures Pupils: Equal, round and reactive pupils present Resp: Effort & Inspection: normal respiratory effort Cardio: Rate: regular rate Rhythm: regular rhythm GI: Palpation (GI): Soft to palpation and nontender : General: Yes no CVA tenderness Back/Spine/Pelvis: Back: no CVA tenderness Skin: General skin exam: no rashes or lesions noted Neuro: General: moves all extremities Cranial nerves: Yes Equal, round and reactive pupils present Extrem: Other: right lower extremity redness,swelling,some scaliness Psych: Appearance: grossly normal Results Labs 03/20/23 06:06 03/20/23 06:06 Labs: Short CBC 03/20/23 Range/Units 06:06 WBC 19.4 H (4.8-10.8) X10*3/uL Hgb 11.1 L (14.0-18.0) g/dl Hct 33.1 L (42.0-52.0) % Plt Count 235 D (160-400) X10*3/uL BMP 03/20/23 06:06 Sodium 134 L Potassium 3.8 Chloride 99 Carbon Dioxide 24 BUN 40 H Creatinine 1.39 Calcium 7.7 L Microbiology Microbiology Results: Microbiology 03/17/23 10:26 Blood - Venous Blood Culture - Preliminary No growth after 48 hours. 03/17/23 10:26 Blood - Venous Blood Culture - Preliminary No growth after 48 hours. Assessment and Plan (1) Cellulitis: Status: Acute He has possible staph or strep cellulitis He has no tinea pedis. Plan Kefzol until better since not purulent and then po Keflex for a week. Time Spent With Patient Time: Total time managing care of this patient today ____ minutes.
[2023-03-21 03:35] VITALS: BP 114/55; PULSE 86; RESP 18; TEMP 36.2; O2SAT 93
[2023-03-21] MEDS: ceFAZolin Sodium/Dextrose,Iso 2 GM/50 ML PIGGYBACK IV ×3 (04:54→19:41)
[2023-03-21 06:27] LABS: Mean Corpuscular HGB Conc 34.4 g/dl (31.0-36.0); Mean Corpuscular Hemoglobin 32.7 pg (27.0-33.0); Mean Corpuscular Volume 95.2 fL (80.0-98.0); Mean Platelet Volume 9.4 fL (9.4-12.4); Platelet Count 242 X10*3/uL (160-400); Red Blood Count 3.36 X10*6/uL (4.60-5.80); Red Cell Distribution Width 13.3 % (11.0-16.0); White Blood Count 15.6 X10*3/uL (4.8-10.8)
[2023-03-21 06:45] LABS: Anion Gap 15 (12-20); Blood Urea Nitrogen 30 mg/dL (9-16); Calcium 7.5 mg/dL (8.4-10.2); Carbon Dioxide 24 mmol/L (22-29); Chloride 98 mmol/L (96-108); Creatinine Clr Calc Pharmacy 104.8; Estimated Glomerular Filt Rate > 60; Glucose Fasting 85 mg/dL (60-99); Potassium 3.9 mmol/L (3.3-5.1); Sodium 133 mmol/L (135-145)
[2023-03-21 06:52] LABS: INTERNATIONAL NORM RATIO 3.5 (0.9-1.1); Prothrombin Time 41.9 SEC (10.0-13.1)
[2023-03-21 07:09] VITALS: BP 120/59; PULSE 85; RESP 19; TEMP 36.6; O2SAT 95
[2023-03-21 07:23] LABS: Glucose, Whole Blood 92 mg/dL (60-115)
[2023-03-21 07:36] VITALS: PULSE 94; RESP 18; O2SAT 95
[2023-03-21] MEDS: Fluticasone/Vilanterol 100/25 BLST.W.DEV 1 PUFF INHALE (07:36)
[2023-03-21] MEDS: Cholecalciferol (Vitamin D3) 25 MCG TABLET 50 MCG PO (07:39)
[2023-03-21] MEDS: Ascorbic Acid 500 MG TABLET PO (07:39)
[2023-03-21] MEDS: Atorvastatin Calcium 40 MG TABLET PO (07:39)
[2023-03-21] MEDS: Nicotine 14 MG PATCH.TD24 TRANSDERMA (07:39)
[2023-03-21] MEDS: methADONE HCl 20 MG/2 ML ORAL.CONC 135 MG PO (07:40)
[2023-03-21] MEDS: 0.9 % Sodium Chloride Flush 3 ML SYRINGE IVFLUSH ×3 (07:40→19:41)
[2023-03-21] MEDS: HYDROmorphone HCl 0.5 MG/0.5 ML SYRINGE IVPUSH ×3 (07:40→21:38)
--- NOTE | 2023-03-21 08:52 | P.CDIM_ITS ---
PROVIDER RESPONSE TEXT: To clarify, the appropriate diagnosis supported by the clinical indicators: Labs indicate a diagnosis of (please specify): hypokalemia, replace and monitor QUERY TEXT: PHYSICIAN'S DOCUMENTATION REQUEST Date of Query: 03/18/2023 09:54 AM EDT Patient Name: Jose Naidu Admit Date: 03/17/2023 Dear Ricardo Alexander, A review of the medical record indicates additional documentation may be needed. Please review below and update the documentation accordingly. Clinical Indicators: The following diagnoses or signs and symptoms were noted in the patient record: Potassium on 03/18/23: 3.2 Treated with Klor-Con 40 meq po once Based on the above, could you clarify the appropriate diagnosis, if significant, that supports the ab ove abnormalities and additional evaluation, monitoring, and/or treatment rendered: Labs indicate a diagnosis of (please specify) Other (explain) Clinically unable to determine (explain) Thank you, Virginie Martínez RN Use of terms such as suspected, likely, concern for, or probable (associated with a specific diagnosi s that is being evaluated, monitored, or treated as if it exists) are acceptable and can be coded in the inpatient se tting, when documented at the time of discharge. Please use your independent medical judgment in providing your response. THIS QUERY IS PART OF THE PERMANENT MEDICAL RECORD
--- NOTE | 2023-03-21 08:56 | HO.PM.IMPN ---
Subjective Subjective Date of Service: 03/21/23 Interval History: improving Physical Exam Vital Signs: Vital Signs: Last Vital Signs Temp 98 F 03/21/23 07:09 Pulse 94 03/21/23 07:36 Resp 18 03/21/23 07:36 BP 120/59 L 03/21/23 07:09 Pulse Ox 95 03/21/23 07:09 O2 Del Method Room Air 03/21/23 07:09 O2 Flow Rate 2 03/20/23 20:00 BMI result Body Mass Index 43.6 Const: General: cooperative HEENT: Head: Yes normal to inspection Face and sinus: Yes normal facial exam Mouth: Normal oral and palatal mucosa present Teeth and gingiva: dentition normal Eyes: General: appearance normal, both eyes and all related structures Pupils: Equal, round and reactive pupils present Resp: Effort & Inspection: normal respiratory effort Cardio: Rate: regular rate Rhythm: regular rhythm GI: Palpation (GI): Soft to palpation and nontender : General: Yes no CVA tenderness Back/Spine/Pelvis: Back: no CVA tenderness Skin: General skin exam: no rashes or lesions noted Neuro: General: moves all extremities Cranial nerves: Yes Equal, round and reactive pupils present Extrem: Other: right lower extremity redness,swelling,some scaliness Psych: Appearance: grossly normal Objective Data Active Medications Albuterol/Ipratropium (Albuterol/Iprat 2.5/0.5mg 3 Ml Ampul.Neb) 3 ml INHALE RQ4H WHILE AWAKE PRN PRN Reason: sob Ascorbic Acid (Ascorbic Acid 500 Mg Tablet) 500 mg PO DAILY [facility] Last Admin: 03/21/23 07:39 Dose: 500 mg Documented By: JESSI Atorvastatin Calcium (Atorvastatin Calcium 40 Mg Tablet) 40 mg PO DAILY [facility] Last Admin: 03/21/23 07:39 Dose: 40 mg Documented By: JESSI Fluticasone/Vilanterol (Fluticasone/Vilanterol 100/25 Blst.W.Dev) 1 puff INHALE DAILY [facility] Last Admin: 03/21/23 07:36 Dose: 1 puff Documented By: BLASCL Hydromorphone HCl (Hydromorphone Hcl 0.5 Mg/0.5 Ml Syringe) 0.5 mg IVPUSH Q4H PRN; Protocol PRN Reason: moderate pain Last Admin: 03/21/23 07:40 Dose: 0.5 mg Documented By: JESSI Cefazolin Sodium/Dextrose (Ancef) 2 gm in 50 mls @ 100 mls/hr IV ONCE [facility] Last Infusion: 03/20/23 13:37 Dose: 0 mls/hr Documented By: ELVIA Cefazolin Sodium/Dextrose (Ancef) 2 gm in 50 mls @ 100 mls/hr IV Q8H [facility] Last Infusion: 03/21/23 05:25 Dose: 0 mls/hr Documented By: OMID Lidocaine/Diphenhydr/Alum/Mg/Simeth (Mag&Al/Sim/Diphenhyd/Lidocaine 10 Ml Oral.Susp) 10 ml PO Q4H PRN; Protocol PRN Reason: sore mouth Methadone HCl (Methadone Hcl 20 Mg/2 Ml Oral.Conc) 135 mg PO DAILY [facility] Last Admin: 03/21/23 07:40 Dose: 135 mg Documented By: JESSI Nicotine (Nicotine 14 Mg Patch.Td24) 14 mg TRANSDERMA DAILY [facility] Last Admin: 03/21/23 07:39 Dose: 14 mg Documented By: JESSI Pharmacy Consult (Consult Rx Perform Med Rec) 1 each MISCELLANE ONCE PRN PRN Reason: Consult order Sodium Chloride (0.9 % Sodium Chloride Flush 3 Ml Syringe) 3 ml IVFLUSH QSHIFT [facility] Last Admin: 03/21/23 07:40 Dose: 3 ml Documented By: JESSI Vitamin D (Cholecalciferol (Vitamin D3) 25 Mcg Tablet) 50 mcg PO DAILY [facility] Last Admin: 03/21/23 07:39 Dose: 50 mcg Documented By: JESSI Warfarin Sodium (Warfarin Sodium 5 Mg Tablet) 5 mg PO DAILY@1800 [facility] Last Admin: 03/20/23 17:08 Dose: 5 mg Documented By: ELVIA Labs 03/21/23 05:37 03/21/23 05:37 Labs: Laboratory Results - last 24 hr 03/20/23 03/20/23 03/20/23 11:13 15:58 20:09 MCV MCH MCHC RDW Plt Count MPV Absolute Nucleated RBC Nucleated RBC % (auto) PT INR Anion Gap Estim Creat Clear Calc Estimated GFR POC Glucose 104 85 119 H Fasting Glucose Calcium 03/21/23 03/21/2303/21/23 05:37 05:37 05:37 MCV 95.2 MCH 32.7 MCHC 34.4 RDW 13.3 Plt Count 242 MPV 9.4 Absolute Nucleated RBC 0.000 Nucleated RBC % (auto) 0.0 PT 41.9 H INR 3.5 H Anion Gap 15 Estim Creat Clear Calc 104.8 Estimated GFR > 60 POC Glucose Fasting Glucose 85 Calcium 7.5 L 03/21/23 07:10 MCV MCH MCHC RDW Plt Count MPV Absolute Nucleated RBC Nucleated RBC % (auto) PT INR Anion Gap Estim Creat Clear Calc Estimated GFR POC Glucose 92 Fasting Glucose Calcium Assessment and Plan (1) YOKASTA (acute kidney injury): Status: Acute Plan 68M PMH morbid obesity with chronic bilateral lymphedema and venous stasis wounds, COPD, PVD, HCV, opiate dependence, HTN, history of VTE, presented with RLE pain severe sepsis due to RLE cellulitis and venous stasis wound infection due to chronic bilateral lymphedema due to morbid obesity ancef, id following cultures - negative to date some improvement PT eval YOKASTA differential includes septic ATN, dehydration, NSAID induced holding gerri-i, nsaids monitor, improving COPD with acute hypoxic respiratory failure and acute decompensation duonebs, home inhaler opiate dependence methadone history of VTE with supratherapeutic inr given 2.5mg vit K restarted coumadin, monitor inr morbid obesity weight loss recommended htn lisinpril on hold hld statin dvt prophylaxis - on coumadin full code reason for continued hospitalization: still with singificant leukocytosis and erythema Time Spent With Patient Time: Total time managing care of this patient today ____ minutes. Quality Stroke Does the patient have a stroke diagnosis?: No VTE Prior VTE?: Yes VTE Risk Level:: Medical - moderate - high VTE Device Contraindication: Treatment Not Indicated VTE Drug Contraindication: N/A - Med Ordered
--- NOTE | 2023-03-21 08:58 | P.CDIM_ITS ---
PROVIDER RESPONSE TEXT: To clarify, the appropriate diagnosis supported by the clinical indicators: Condition 1 (please specify): mild acute hyponatremia, monitor QUERY TEXT: PHYSICIAN'S DOCUMENTATION REQUEST Date of Query: 03/18/2023 09:56 AM EDT Patient Name: Jose Naidu Admit Date: 03/17/2023 Dear Ricardo Alexander, A review of the medical record indicates additional documentation may be needed. Please review below and update the documentation accordingly. Clinical Indicators: The following diagnoses or signs and symptoms were noted in the patient record: Sodium on 03/17/23: 130 Sodium on 03/18/23: 131 Treated with IVF NS 1000 mls @ 999 mls/hr Q1H1M Based on the above, could you clarify the appropriate diagnosis, if significant, that supports the ab ove abnormalities and additional evaluation, monitoring, and/or treatment rendered: Condition 1 (please specify) Condition 2 (please specify) Condition 3 (please specify) Labs indicate a diagnosis of (please specify) Other (explain) Clinically unable to determine (explain) Thank you, Virginie Martínez RN Use of terms such as suspected, likely, concern for, or probable (associated with a specific diagnosi s that is being evaluated, monitored, or treated as if it exists) are acceptable and can be coded in the inpatient se tting, when documented at the time of discharge. Please use your independent medical judgment in providing your response. THIS QUERY IS PART OF THE PERMANENT MEDICAL RECORD
[2023-03-21 11:12] LABS: Glucose, Whole Blood 111 mg/dL (60-115)
--- NOTE | 2023-03-21 14:21 | MHC.CLN ---
NUTRITION CONSULT FOR IMPAIRED SKIN. CELLULITIS WITH NO PRESSURE INJURY. DIET=REGULAR NDD3 CONSISTENCY PER MD ORDER. INTAKE APPEARS FAIR/GOOD. NO NEW NUTRITION INTERVENTIONS AT THIS TIME.
--- NOTE | 2023-03-21 14:36 | MHC.CM.PN ---
Pt not medically cleared for d/c: still w/unresolved cellulitis and WBC elevation. D/C plan remains for a return to home w/[facility]. Room mate to transport to home.
[2023-03-21 15:37] VITALS: BP 129/69; PULSE 93; RESP 20; TEMP 36.4; O2SAT 96
[2023-03-21 16:31] LABS: Glucose, Whole Blood 83 mg/dL (60-115)
[2023-03-21 19:35] VITALS: BP 111/55; PULSE 93; RESP 16; TEMP 36.6; O2SAT 93
[2023-03-21 19:57] LABS: Glucose, Whole Blood 97 mg/dL (60-115)
[2023-03-22 03:52] VITALS: BP 101/57; PULSE 86; RESP 18; TEMP 36.1; O2SAT 93
[2023-03-22] MEDS: HYDROmorphone HCl 0.5 MG/0.5 ML SYRINGE IVPUSH ×4 (04:01→22:50)
[2023-03-22] MEDS: ceFAZolin Sodium/Dextrose,Iso 2 GM/50 ML PIGGYBACK IV ×3 (04:31→19:32)
[2023-03-22 06:53] LABS: Hematocrit 31.7 % (42.0-52.0); Hemoglobin 10.7 g/dl (14.0-18.0); Mean Corpuscular HGB Conc 33.8 g/dl (31.0-36.0); Mean Corpuscular Hemoglobin 32.6 pg (27.0-33.0); Mean Corpuscular Volume 96.6 fL (80.0-98.0); Mean Platelet Volume 9.3 fL (9.4-12.4); Platelet Count 265 X10*3/uL (160-400); Red Blood Count 3.28 X10*6/uL (4.60-5.80); Red Cell Distribution Width 13.1 % (11.0-16.0); White Blood Count 11.3 X10*3/uL (4.8-10.8)
[2023-03-22 06:58] LABS: Prothrombin Time 49.1 SEC (10.0-13.1)
[2023-03-22 07:09] VITALS: BP 101/56; PULSE 89; RESP 18; TEMP 36.9; O2SAT 90
[2023-03-22 07:20] LABS: Anion Gap 11 (12-20); Blood Urea Nitrogen 26 mg/dL (9-16); Calcium 7.4 mg/dL (8.4-10.2); Carbon Dioxide 25 mmol/L (22-29); Chloride 99 mmol/L (96-108); Creatinine Clr Calc Pharmacy 123.9; Estimated Glomerular Filt Rate > 60; Glucose Fasting 90 mg/dL (60-99); Sodium 131 mmol/L (135-145)
[2023-03-22 07:37] LABS: Glucose, Whole Blood 93 mg/dL (60-115)
[2023-03-22 08:00] VITALS: BP 125/58; PULSE 87; RESP 18; TEMP 36.1; O2SAT 93
[2023-03-22] MEDS: Cholecalciferol (Vitamin D3) 25 MCG TABLET 50 MCG PO (08:04)
[2023-03-22] MEDS: Ascorbic Acid 500 MG TABLET PO (08:04)
[2023-03-22] MEDS: Nicotine 14 MG PATCH.TD24 TRANSDERMA (08:04)
[2023-03-22] MEDS: Atorvastatin Calcium 40 MG TABLET PO (08:04)
[2023-03-22] MEDS: methADONE HCl 20 MG/2 ML ORAL.CONC 135 MG PO (08:05)
[2023-03-22] MEDS: 0.9 % Sodium Chloride Flush 3 ML SYRINGE IVFLUSH ×3 (08:16→23:01)
--- NOTE | 2023-03-22 09:02 | HO.PM.IMPN ---
Subjective Subjective Date of Service: 03/22/23 Interval History: difficultgy walking, overall improved Physical Exam Vital Signs: Vital Signs: Last Vital Signs Temp 97 F 03/22/23 08:00 Pulse 87 03/22/23 08:00 Resp 18 03/22/23 08:00 BP 125/58 L 03/22/23 08:00 Pulse Ox 93 03/22/23 08:00 O2 Del Method Room Air 03/22/23 08:00 O2 Flow Rate 2 03/20/23 20:00 BMI result Body Mass Index 43.6 Const: General: cooperative HEENT: Head: Yes normal to inspection Face and sinus: Yes normal facial exam Mouth: Normal oral and palatal mucosa present Teeth and gingiva: dentition normal Eyes: General: appearance normal, both eyes and all related structures Pupils: Equal, round and reactive pupils present Resp: Effort & Inspection: normal respiratory effort Cardio: Rate: regular rate Rhythm: regular rhythm GI: Palpation (GI): Soft to palpation and nontender : General: Yes no CVA tenderness Back/Spine/Pelvis: Back: no CVA tenderness Skin: General skin exam: no rashes or lesions noted Neuro: General: moves all extremities Cranial nerves: Yes Equal, round and reactive pupils present Extrem: Other: right lower extremity redness,swelling,some scaliness Psych: Appearance: grossly normal Objective Data Active Medications Albuterol/Ipratropium (Albuterol/Iprat 2.5/0.5mg 3 Ml Ampul.Neb) 3 ml INHALE RQ4H WHILE AWAKE PRN PRN Reason: sob Ascorbic Acid (Ascorbic Acid 500 Mg Tablet) 500 mg PO DAILY [facility] Last Admin: 03/22/23 08:04 Dose: 500 mg Documented By: HEIDY Atorvastatin Calcium (Atorvastatin Calcium 40 Mg Tablet) 40 mg PO DAILY [facility] Last Admin: 03/22/23 08:04 Dose: 40 mg Documented By: HEIDY Fluticasone/Vilanterol (Fluticasone/Vilanterol 100/25 Blst.W.Dev) 1 puff INHALE DAILY [facility] Last Admin: 03/22/23 08:00 Dose: Not Given Documented By: YANNA Non-Admin Reason: Patient Refused Hydromorphone HCl (Hydromorphone Hcl 0.5 Mg/0.5 Ml Syringe) 0.5 mg IVPUSH Q4H PRN; Protocol PRN Reason: moderate pain Last Admin: 03/22/23 08:00 Dose: 0.5 mg Documented By: HEIDY Cefazolin Sodium/Dextrose (Ancef) 2 gm in 50 mls @ 100 mls/hr IV ONCE [facility] Last Infusion: 03/21/23 12:03 Dose: 0 mls/hr Documented By: JESSI Cefazolin Sodium/Dextrose (Ancef) 2 gm in 50 mls @ 100 mls/hr IV Q8H [facility] Last Infusion: 03/22/23 05:07 Dose: 0 mls/hr Documented By: CASTILLong Lidocaine/Diphenhydr/Alum/Mg/Simeth (Mag&Al/Sim/Diphenhyd/Lidocaine 10 Ml Oral.Susp) 10 ml PO Q4H PRN; Protocol PRN Reason: sore mouth Methadone HCl (Methadone Hcl 20 Mg/2 Ml Oral.Conc) 135 mg PO DAILY [facility] Last Admin: 03/22/23 08:05 Dose: 135 mg Documented By: HEIDY Nicotine (Nicotine 14 Mg Patch.Td24) 14 mg TRANSDERMA DAILY [facility] Last Admin: 03/22/23 08:04 Dose: 14 mg Documented By: HEIDY Pharmacy Consult (Consult Rx Perform Med Rec) 1 each MISCELLANE ONCE PRN PRN Reason: Consult order Sodium Chloride (0.9 % Sodium Chloride Flush 3 Ml Syringe) 3 ml IVFLUSH QSHIFT [facility] Last Admin: 03/22/23 08:16 Dose: 3 ml Documented By: HEIDY Vitamin D (Cholecalciferol (Vitamin D3) 25 Mcg Tablet) 50 mcg PO DAILY [facility] Last Admin: 03/22/23 08:04 Dose: 50 mcg Documented By: HEIDY Warfarin Sodium (Warfarin Sodium 5 Mg Tablet) 5 mg PO DAILY@1800 [facility] Last Admin: 03/20/23 17:08 Dose: 5 mg Documented By: ELVIA Labs 03/22/23 06:33 03/22/23 06:33 Labs: Laboratory Results - last 24 hr 03/21/23 03/21/23 03/21/23 11:09 16:22 19:39 MCV MCH MCHC RDW Plt Count MPV Absolute Nucleated RBC Nucleated RBC % (auto) PT INR Anion Gap Estim Creat Clear Calc Estimated GFR POC Glucose 111 83 97 Fasting Glucose Calcium 03/22/23 03/22/23 03/22/23 06:33 06:33 06:33 MCV 96.6 MCH 32.6 MCHC 33.8 RDW 13.1 Plt Count 265 MPV 9.3 L Absolute Nucleated RBC 0.000 Nucleated RBC % (auto) 0.0 PT 49.1 H INR 4.0 H Anion Gap 11 L Estim Creat Clear Calc 123.9 Estimated GFR > 60 POC Glucose Fasting Glucose 90 Calcium 7.4 L 03/22/23 07:33 MCV MCH MCHC RDW Plt Count MPV Absolute Nucleated RBC Nucleated RBC % (auto) PT INR Anion Gap Estim Creat Clear Calc Estimated GFR POC Glucose 93 Fasting Glucose Calcium Assessment and Plan (1) YOKASTA (acute kidney injury): Status: Acute Plan 68M PMH morbid obesity with chronic bilateral lymphedema and venous stasis wounds, COPD, PVD, HCV, opiate dependence, HTN, history of VTE, presented with RLE pain severe sepsis due to RLE cellulitis and venous stasis wound infection due to chronic bilateral lymphedema due to morbid obesity ancef, id appreciated - keflex on dc for 1 week cultures - negative significant improvement in inflammatory markers, erythema, still with dificulty ambulating, pt recommending rehab YOKASTA differential includes septic ATN, dehydration, NSAID induced holding gerri-i, nsaids resolved COPD with acute hypoxic respiratory failure and acute decompensation duonebs, home inhaler opiate dependence methadone history of VTE with supratherapeutic inr given 2.5mg vit K monitor inr coumadin for goal inr 2-3 morbid obesity weight loss recommended htn lisinopril on hold for yokasta/low normal bps hld statin dvt prophylaxis - on coumadin full code reason for continued hospitalization: safe dispo planning Time Spent With Patient Time: Total time managing care of this patient today ____ minutes. Quality Stroke Does the patient have a stroke diagnosis?: No VTE Prior VTE?: Yes VTE Risk Level:: Medical - moderate - high VTE Device Contraindication: Treatment Not Indicated VTE Drug Contraindication: N/A - Med Ordered
[2023-03-22] MEDS: Mag&Al/Sim/Diphenhyd/Lidocaine 10 ML ORAL.SUSP PO (10:33)
[2023-03-22 11:09] LABS: Glucose, Whole Blood 91 mg/dL (60-115)
[2023-03-22 15:07] VITALS: BP 117/59; PULSE 90; RESP 18; TEMP 36.4; O2SAT 93
[2023-03-22 16:31] LABS: Glucose, Whole Blood 105 mg/dL (60-115)
[2023-03-22 19:04] VITALS: BP 117/59; PULSE 94; RESP 18; TEMP 36.5; O2SAT 90
[2023-03-22 20:07] VITALS: O2SAT 94
[2023-03-22 20:23] LABS: Glucose, Whole Blood 100 mg/dL (60-115)
[2023-03-23] MEDS: HYDROmorphone HCl 0.5 MG/0.5 ML SYRINGE IVPUSH ×5 (03:03→20:47)
[2023-03-23 03:21] VITALS: BP 107/56; PULSE 87; RESP 18; TEMP 36.2; O2SAT 92
[2023-03-23] MEDS: ceFAZolin Sodium/Dextrose,Iso 2 GM/50 ML PIGGYBACK IV ×3 (04:28→20:22)
[2023-03-23 07:06] VITALS: BP 114/58; PULSE 89; RESP 19; TEMP 36.1; O2SAT 92
[2023-03-23 07:09] LABS: INTERNATIONAL NORM RATIO 3.9 (0.9-1.1); Prothrombin Time 47.3 SEC (10.0-13.1)
[2023-03-23 07:10] LABS: Glucose, Whole Blood 98 mg/dL (60-115)
[2023-03-23] MEDS: Cholecalciferol (Vitamin D3) 25 MCG TABLET 50 MCG PO (07:39)
[2023-03-23] MEDS: Ascorbic Acid 500 MG TABLET PO (07:39)
[2023-03-23] MEDS: Atorvastatin Calcium 40 MG TABLET PO (07:39)
[2023-03-23] MEDS: methADONE HCl 20 MG/2 ML ORAL.CONC 135 MG PO (07:39)
[2023-03-23] MEDS: 0.9 % Sodium Chloride Flush 3 ML SYRINGE IVFLUSH ×3 (07:39→23:45)
[2023-03-23] MEDS: Nicotine 14 MG PATCH.TD24 TRANSDERMA (07:39)
[2023-03-23 08:21] VITALS: PULSE 92; RESP 18; O2SAT 96
[2023-03-23] MEDS: Fluticasone/Vilanterol 100/25 BLST.W.DEV 1 PUFF INHALE (08:21)
[2023-03-23 11:09] LABS: Glucose, Whole Blood 121 mg/dL (60-115)
--- NOTE | 2023-03-23 12:06 | MHC.CM.PN ---
per rounds pt being will be ready for dc possible tomorrow bed search continues [facility] is not offering
--- NOTE | 2023-03-23 13:13 | P.PNIM_ITS ---
Subjective Subjective Date of Service: 03/23/23 Interval History: Seen and evaluated Feels little better and able to participate with PT wound still have mild drainage, erythema resolving no other overnight events Review of Systems Review of Systems: Yes all other systems are reviewed and are negative Physical Exam Vital Signs: Vital Signs: Last Vital Signs Temp 97 F 03/23/23 07:06 Pulse 92 03/23/23 08:21 Resp 18 03/23/23 08:21 BP 114/58 L 03/23/23 07:06 Pulse Ox 92 03/23/23 07:06 O2 Del Method Room Air 03/23/23 07:06 O2 Flow Rate 2 03/20/23 20:00 BMI result Body Mass Index 43.6 Const: Other: Constitutional : Awake, interactive, not in distress, obese Neck : Normal inspection, Supple Cardiovascular : RRR, no JVP, no lower extremity edema Respiratory : good bilateral air entry, no crackles, wheezes or rhonchi Gastrointestinal: soft, lax, Normal bowel sounds, Non tender Skin : Warm, Dry LE: right lower extremity redness improving ,dry skin with scaliness, open wound of 6x3 cm Neurological : Alert & oriented x3, No focal deficit Objective Data Active Medications Albuterol/Ipratropium (Albuterol/Iprat 2.5/0.5mg 3 Ml Ampul.Neb) 3 ml INHALE RQ4H WHILE AWAKE PRN PRN Reason: sob Ascorbic Acid (Ascorbic Acid 500 Mg Tablet) 500 mg PO DAILY [facility] Last Admin: 03/23/23 07:39 Dose: 500 mg Documented By: HEIDY Atorvastatin Calcium (Atorvastatin Calcium 40 Mg Tablet) 40 mg PO DAILY [facility] Last Admin: 03/23/23 07:39 Dose: 40 mg Documented By: HEIDY Fluticasone/Vilanterol (Fluticasone/Vilanterol 100/25 Blst.W.Dev) 1 puff INHALE DAILY [facility] Last Admin: 03/23/23 08:21 Dose: 1 puff Documented By: BALDEV Hydromorphone HCl (Hydromorphone Hcl 0.5 Mg/0.5 Ml Syringe) 0.5 mg IVPUSH Q4H P RN; Protocol PRN Reason: moderate pain Last Admin: 03/23/23 11:51 Dose: 0.5 mg Documented By: HEIDY Cefazolin Sodium/Dextrose (Ancef) 2 gm in 50 mls @ 100 mls/hr IV ONCE [facility] Last Infusion: 03/22/23 14:16 Dose: 0 mls/hr Documented By: HEIDY Cefazolin Sodium/Dextrose (Ancef) 2 gm in 50 mls @ 100 mls/hr IV Q8H [facility] Last Infusion: 03/23/23 04:59 Dose: 0 mls/hr Documented By: AMBER Lactic Acid (Ammonium Lactate 12 % Lotion 226 Gm Bottle) 1 appl TOPICAL BID [facility]; Protocol Lidocaine/Diphenhydr/Alum/Mg/Simeth (Mag&Al/Sim/Diphenhyd/Lidocaine 10 Ml Oral.Susp) 10 ml PO Q4H PRN; Protocol PRN Reason: sore mouth Last Admin: 03/22/23 10:33 Dose: 10 ml Documented By: HEIDY Methadone HCl (Methadone Hcl 20 Mg/2 Ml Oral.Conc) 135 mg PO DAILY [facility] Last Admin: 03/23/23 07:39 Dose: 135 mg Documented By: HEIDY Nicotine (Nicotine 14 Mg Patch.Td24) 14 mg TRANSDERMA DAILY [facility] Last Admin: 03/23/23 07:39 Dose: 14 mg Documented By: HEIDY Pharmacy Consult (Consult Rx Perform Med Rec) 1 each MISCELLANE ONCE PRN PRN Reason: Consult order Sodium Chloride (0.9 % Sodium Chloride Flush 3 Ml Syringe) 3 ml IVFLUSH QSHIFT [facility] Last Admin: 03/23/23 07:39 Dose: 3 ml Documented By: HEIDY Vitamin D (Cholecalciferol (Vitamin D3) 25 Mcg Tablet) 50 mcg PO DAILY [facility] Last Admin: 03/23/23 07:39 Dose: 50 mcg Documented By: HEIDY Warfarin Sodium (Warfarin Sodium 5 Mg Tablet) 5 mg PO DAILY@1800 [facility] Last Admin: 03/20/23 17:08 Dose: 5 mg Documented By: ELVIA Labs 03/22/23 06:33 03/22/23 06:33 Labs: Laboratory Results - last 24 hr 03/22/23 03/22/23 03/23/23 16:25 20:16 05:52 PT 47.3 H INR 3.9 H POC Glucose 105 100 03/23/23 03/23/23 07:06 11:00 PT INR POC Glucose 98 121 H Microbiology Microbiology Results: Microbiology 03/17/23 10:26 Blood Culture - Final Blood - Venous No growth after 5 days. 03/17/23 10:26 Blood Culture - Final Blood - Venous No growth after 5 days. Assessment and Plan (1) Cellulitis: Status: Acute (2) YOKASTA (acute kidney injury): Status: Acute (3) Venous ulcer of right leg: Status: Acute Plan 68M PMH morbid obesity with chronic bilateral lymphedema and venous stasis wounds, COPD, PVD, HCV, opiate dependence, HTN, history of VTE, presented with RLE pain severe sepsis due to RLE cellulitis and venous stasis wound infection due to chronic bilateral lymphedema due to morbid obesity ancef, id appreciated - keflex on dc for 1 week cultures - negative significant improvement in inflammatory markers, erythema, still with difficulty ambulating, pt recommending rehab pending surgery and wound care eval YOKASTA differential includes septic ATN, dehydration, NSAID induced holding gerri-i, nsaids resolved COPD with acute hypoxic respiratory failure and acute decompensation duonebs, home inhaler opiate dependence methadone history of VTE with supratherapeutic inr given 2.5mg vit K monitor inr coumadin for goal inr 2-3 morbid obesity weight loss recommended htn lisinopril on hold for yokasta/low normal bps hld statin dvt prophylaxis - on coumadin full code reason for continued hospitalization: safe dispo planning Time Spent With Patient Time: Total time managing care of this patient today ____ minutes. Quality Stroke Does the patient have a stroke diagnosis?: No VTE Prior VTE?: Yes VTE Risk Level:: Medical - moderate - high VTE Device Contraindication: Treatment Not Indicated VTE Drug Contraindication: N/A - Med Ordered
--- NOTE | 2023-03-23 14:10 | P.CONGS_ITS ---
History of Present Illness Consult details Consult date: 03/23/23 Requesting physician: Rodriguez Marinelli Narrative: 68-year-old male patient with history of morbid obesity chronic bilateral lymphedema, venous stasis, previous deep venous thrombosis, COPD, peripheral vascular disease, HCV, opiate dependency, hypertension presenting on 03/17/2023 with complaints of shaking chills, worsening leg pain, leg swelling and drainage from multiple wounds. He has been treated at the [facility] prolonged period of time for an ulcer in the bilateral ankles. This is been dressed with silver alginate and compression dressings. He reports that almost overnight the upper leg became increasingly red and swollen with associated increase in pain. He was subsequently admitted from the emergency department. Admitting laboratories revealed a WBC of 26 with a lactic acid of 1.4. He was admitted to the hospitalist service for IV antibiotics. Surgical consultation was requested for management of the leg wound. In addition a wound care management consultation was also requested. Since his admission he reports a slight improvement in the pain and swelling. Review of Systems Review of Systems: Yes all other systems are reviewed and are negative PMFSH Past Medical History Medical History (Updated 03/23/23 @ 13:16 by Rodriguez Marinelli MD) Cellulitis Chronic back pain Chronic venous stasis dermatitis of both lower extremities DVT (deep venous thrombosis) Hepatitis C Hyperlipidemia Hypertensive cardiovascular disease Morbid obesity due to excess calories Narcotic addiction Obesity hypoventilation syndrome Osteoarthritis Pulmonary embolism Sleep apnea Family History Family history: reviewed and not pertinent Surgical History Surgical History History of arthroscopy of both knees History of repair of cleft lip Social History Social History Household Members: Other Housing: Apartment Do you presently have visiting nurse or other home services: Yes Patient Tobacco Use Status: Current everyday Tobacco user Tobacco use type: Cigarette Cigarette Packs Per Day: 1 Cigarettes Per Day: 20.0 Years Smoked: 30 e-Cigarette/Vaping Use: Currently Using Second Hand Smoke Exposure: No service: No Current occupational status: disabled Meds Allergies Allergy/AdvReac Type Severity Reaction Status Date / Time ibuprofen Allergy Unknown HIVES/STOMACHE Verified 03/17/23 10:10 UPSET Penicillins Allergy Unknown COMA Verified 03/17/23 10:10 tramadol Allergy Unknown Verified 03/17/23 10:10 Active Medications: Current Medications Albuterol/Ipratropium (Albuterol/Iprat 2.5/0.5mg 3 Ml Ampul.Neb) 3 ml INHALE RQ4H WHILE AWAKE PRN PRN Reason: sob Ascorbic Acid (Ascorbic Acid 500 Mg Tablet) 500 mg PO DAILY [facility] Last Admin: 03/23/23 07:39 Dose: 500 mg Atorvastatin Calcium (Atorvastatin Calcium 40 Mg Tablet) 40 mg PO DAILY [facility] Last Admin: 03/23/23 07:39 Dose: 40 mg Fluticasone/Vilanterol (Fluticasone/Vilanterol 100/25 Blst.W.Dev) 1 puff INHALE DAILY [facility] Last Admin: 03/23/23 08:21 Dose: 1 puff Hydromorphone HCl (Hydromorphone Hcl 0.5 Mg/0.5 Ml Syringe) 0.5 mg IVPUSH Q4H PRN; Protocol PRN Reason: moderate pain Last Admin: 03/23/23 11:51 Dose: 0.5 mg Cefazolin Sodium/Dextrose (Ancef) 2 gm in 50 mls @ 100 mls/hr IV ONCE [facility] Last Infusion: 03/22/23 14:16 Dose: Infused Cefazolin Sodium/Dextrose (Ancef) 2 gm in 50 mls @ 100 mls/hr IV Q8H [facility] Last Infusion: 03/23/23 04:59 Dose: Infused Lactic Acid (Ammonium Lactate 12 % Lotion 226 Gm Bottle) 1 appl TOPICAL BID [facility]; Protocol Lidocaine/Diphenhydr/Alum/Mg/Simeth (Mag&Al/Sim/Diphenhyd/Lidocaine 10 Ml Oral.Susp) 10 ml PO Q4H PRN; Protocol PRN Reason: sore mouth Last Admin: 03/22/23 10:33 Dose: 10 ml Methadone HCl (Methadone Hcl 20 Mg/2 Ml Oral.Conc) 135 mg PO DAILY [facility] Last Admin: 03/23/23 07:39 Dose: 135 mg Nicotine (Nicotine 14 Mg Patch.Td24) 14 mg TRANSDERMA DAILY [facility] Last Admin: 03/23/23 07:39 Dose: 14 mg Pharmacy Consult (Consult Rx Perform Med Rec) 1 each MISCELLANE ONCE PRN PRN Reason: Consult order Sodium Chloride (0.9 % Sodium Chloride Flush 3 Ml Syringe) 3 ml IVFLUSH QSHIFT [facility] Last Admin: 03/23/23 07:39 Dose: 3 ml Vitamin D (Cholecalciferol (Vitamin D3) 25 Mcg Tablet) 50 mcg PO DAILY [facility] Last Admin: 03/23/23 07:39 Dose: 50 mcg Warfarin Sodium (Warfarin Sodium 5 Mg Tablet) 5 mg PO DAILY@1800 [facility] Last Admin: 03/20/23 17:08 Dose: 5 mg Home Medications Medication Instructions Recorded Confirmed Last Taken Type ammonium lactate 12 % topical cream 1 applic topical BID PRN Rash 10/07/21 03/17/23 10/06/21 History ascorbic acid (vitamin C) 500 mg 1 tab PO DAILY 10/07/21 03/17/23 10/06/21 History tablet (Vitamin C) fluticasone 250 mcg-salmeterol 50 1 puff inhalation DAILY 10/07/21 03/17/23 10/06/21 History mcg/dose blistr powdr for inhalation furosemide 20 mg tablet 1 tab PO BID 10/07/21 03/17/23 10/06/21 History lisinopril 40 mg tablet 1 tab PO DAILY 10/07/21 03/17/23 10/06/21 History methadone 10 mg/5 mL oral solution 135 mg PO DAILY 10/07/21 03/18/23 03/17/23 History rosuvastatin 10 mg tablet 1 tab PO DAILY 10/07/21 03/17/23 10/06/21 History sennosides 8.6 mg-docusate sodium 2 tab PO DAILY PRN Constipation 10/07/21 03/17/23 10/06/21 History 50 mg tablet (Stool Softener-Stimulant Laxative) vitamin B complex-folic acid ER 1 tab PO DAILY 10/07/21 03/17/23 10/06/21 History 400 mcg tablet,extended release (Complex B-100) warfarin 3 mg tablet 6 mg PO DAILY 10/07/21 10/07/21 10/06/21 10:00 History cholecalciferol (vitamin D3) 50 50 mcg PO DAILY 03/17/23 03/17/23 Unknown History mcg (2,000 unit) tablet doxycycline hyclate 100 mg tablet 100 mg PO BID 03/17/23 03/17/23 Unknown History omega 7-cjp-ifn-fish oil 1,000 mg 1 cap PO DAILY 03/17/23 03/17/23 Unknown History (120 mg-180 mg) capsule Physical Exam Vital Signs: Vital Signs: Last Vital Signs Temp 97 F 03/23/23 07:06 Pulse 92 03/23/23 08:21 Resp 18 03/23/23 08:21 BP 114/58 L 03/23/23 07:06 Pulse Ox 92 03/23/23 07:06 O2 Del Method Room Air 03/23/23 07:06 O2 Flow Rate 2 03/20/23 20:00 BMI result Body Mass Index 43.6 Const: General: no acute distress Nutritional Appearance: obese and Edematous Orientation/consciousness: patient oriented x3 HEENT: Other: Cleft lip repair Resp: Other: Breathing comfortably on room air, no respiratory distress GI: Other: Morbidly obese Skin: Other: Lower extremities with dry flaking skin, erythema and bullous changes noted in the right lateral and posterior thigh. No ulceration or necrotic skin is appreciated. Neuro: General: patient oriented x3 Extrem: Other: Lesions as noted in skin above. Venous stasis changes in the lower extremity with lipodermatosclerosis changes. The right posterior lower extremity reveals an open wound with a granulated base with silver alginate applied. No skin necrosis is identified. There is no underlying abscess appreciated. Surrounding skin is scaly but dry. Silver alginate was reapplied to the wound followed by fluffed gauze and Kerlix. Results Labs 03/22/23 06:33 03/22/23 06:33 Labs: Abnormal lab results 03/23/23 03/23/23 Range/Units 05:52 11:00 PT 47.3 H (10.0-13.1) SEC INR 3.9 H (0.9-1.1) POC Glucose 121 H (60-115) mg/dL Urine 03/17/23 Range/Units 17:00 Urine Color Dark Yellow Urine Appearance Cloudy Urine pH 5.5 (5.0-9.0) Ur Specific [place] 1.015 (1.005-1.025) Urine Protein 100 (2+) H (Neg-Trace) mg/dL Urine Glucose (UA) Negative (Negative) mg/dL All other labs normal. Assessment and Plan (1) Venous ulcer of right leg: Status: Acute (2) Cellulitis: Status: Acute Plan 68-year-old male patient with chronic venous stasis ulceration involving bilateral legs with chronic ulcer of the posterior right leg which has a gra nulated base. This was previously treated by the [facility] with compression dressings. Recommend continuing the silver alginate, dry sterile dressings. Will await further evaluation by Marsha Garcia from the [facility] for further management of the upper thigh skin wounds. Time Spent With Patient Time: Total time managing care of this patient today ____ minutes. Procedures Date of Service Date of Service: 03/23/23
[2023-03-23] MEDS: Ammonium Lactate 12 % Lotion 226 GM BOTTLE 1 APPL TOPICAL ×2 (14:18→20:01)
[2023-03-23 15:33] VITALS: BP 109/58; PULSE 90; RESP 18; TEMP 36.7; O2SAT 92
--- NOTE | 2023-03-23 15:33 | PC.NURSE ---
MOUTH REDNESS,SORES PAINFUL,PATIENT STATES MAGIC MOUTHWASH NOT HELPING,DR. HILLS NOTIFIED
[2023-03-23 16:13] LABS: Glucose, Whole Blood 107 mg/dL (60-115)
[2023-03-23 19:25] VITALS: BP 105/58; PULSE 89; RESP 20; TEMP 37.1; O2SAT 91
[2023-03-23 20:29] LABS: Glucose, Whole Blood 90 mg/dL (60-115)
[2023-03-24] MEDS: HYDROmorphone HCl 0.5 MG/0.5 ML SYRINGE IVPUSH ×5 (03:01→21:19)
[2023-03-24 03:21] VITALS: BP 124/55; PULSE 89; RESP 16; TEMP 36; O2SAT 93
[2023-03-24] MEDS: ceFAZolin Sodium/Dextrose,Iso 2 GM/50 ML PIGGYBACK IV ×3 (05:42→19:46)
[2023-03-24 07:04] LABS: INTERNATIONAL NORM RATIO 2.8 (0.9-1.1); Prothrombin Time 34.1 SEC (10.0-13.1)
[2023-03-24 07:17] LABS: Glucose, Whole Blood 86 mg/dL (60-115)
[2023-03-24 07:28] LABS: Anion Gap 7 (12-20); Blood Urea Nitrogen 20 mg/dL (9-16); Calcium 7.4 mg/dL (8.4-10.2); Carbon Dioxide 29 mmol/L (22-29); Chloride 100 mmol/L (96-108); Estimated Glomerular Filt Rate > 60; Glucose Random 90 mg/dL (60-115); Potassium 4.3 mmol/L (3.3-5.1); Sodium 132 mmol/L (135-145)
[2023-03-24] MEDS: 0.9 % Sodium Chloride Flush 3 ML SYRINGE IVFLUSH ×3 (07:30→19:46)
[2023-03-24 07:37] VITALS: BP 110/57; PULSE 85; RESP 16; TEMP 36.9
[2023-03-24] MEDS: Fluticasone/Vilanterol 100/25 BLST.W.DEV 1 PUFF INHALE (07:46)
[2023-03-24] MEDS: Albuterol/Iprat 2.5/0.5MG 3 ML AMPUL.NEB INHALE (07:46)
[2023-03-24 07:48] VITALS: PULSE 85; RESP 16; O2SAT 93
[2023-03-24] MEDS: methADONE HCl 20 MG/2 ML ORAL.CONC 135 MG PO (09:18)
[2023-03-24] MEDS: Atorvastatin Calcium 40 MG TABLET PO (09:19)
[2023-03-24] MEDS: Ascorbic Acid 500 MG TABLET PO (09:19)
[2023-03-24] MEDS: Ammonium Lactate 12 % Lotion 226 GM BOTTLE 1 APPL TOPICAL ×2 (09:19→21:31)
[2023-03-24] MEDS: Cholecalciferol (Vitamin D3) 25 MCG TABLET 50 MCG PO (09:19)
[2023-03-24] MEDS: Nicotine 14 MG PATCH.TD24 TRANSDERMA (09:20)
[2023-03-24] MEDS: Benzocaine 20 % Oral Gel 9 GM TUBE 1 APPL MUCOUS MEM (09:22)
[2023-03-24] MEDS: Mag&Al/Sim/Diphenhyd/Lidocaine 10 ML ORAL.SUSP PO ×4 (11:09→20:05)
[2023-03-24 11:22] LABS: Glucose, Whole Blood 116 mg/dL (60-115)
--- NOTE | 2023-03-24 11:37 | HO.PM.IMPN ---
Subjective Subjective Date of Service: 03/24/23 Interval History: Seen and evaluated complaining of generalized weakness Feels little better and able to participate with PT wound still have mild drainage, erythema resolving no other overnight events Review of Systems Review of Systems: Yes all other systems are reviewed and are negative Physical Exam Vital Signs: Vital Signs: Last Vital Signs Temp 98.4 F 03/24/23 07:37 Pulse 85 03/24/23 07:48 Resp 16 03/24/23 07:48 BP 110/57 L 03/24/23 07:37 Pulse Ox 93 03/24/23 03:21 O2 Del Method Room Air 03/24/23 07:37 O2 Flow Rate 2 03/20/23 20:00 BMI result Body Mass Index 43.6 Const: Other: Constitutional : Awake, interactive, not in distress, obese Neck : Normal inspection, Supple Cardiovascular : RRR, no JVP, no lower extremity edema Respiratory : good bilateral air entry, no crackles, wheezes or rhonchi Gastrointestinal: soft, lax, Normal bowel sounds, Non tender Skin : Warm, Dry LE: right lower extremity redness improving ,dry skin with scaliness, open wound of 6x3 cm, right hip and thigh large blisters with mild basal erythema Neurological : Alert & oriented x3, No focal deficit Objective Data Active Medications Albuterol/Ipratropium (Albuterol/Iprat 2.5/0.5mg 3 Ml Ampul.Neb) 3 ml INHALE RQ4H WHILE AWAKE PRN PRN Reason: sob Last Admin: 03/24/23 07:46 Dose: 3 ml Documented By: MYRON Ascorbic Acid (Ascorbic Acid 500 Mg Tablet) 500 mg PO DAILY [facility] Last Admin: 03/24/23 09:19 Dose: 500 mg Documented By: GRETTA Atorvastatin Calcium (Atorvastatin Calcium 40 Mg Tablet) 40 mg PO DAILY [facility] Last Admin: 03/24/23 09:19 Dose: 40 mg Documented By: GRETTA Benzocaine (Benzocaine 20 % Oral Gel 9 Gm Tube) 1 appl MUCOUS MEM QID PRN; Protocol PRN Reason: mouth pain Last Admin: 03/24/23 09:22 Dose: 1 appl Documented By: GRETTA Fluticasone/Vilanterol (Fluticasone/Vilanterol 100/25 Blst.W.Dev) 1 puff INHALE DAILY [facility] Last Admin: 03/24/23 07:46 Dose: 1 puff Documented By: MYRON Hydromorphone HCl (Hydromorphone Hcl 0.5 Mg/0.5 Ml Syringe) 0.5 mg IVPUSH Q4H PRN; Protocol PRN Reason: moderate pain Last Admin: 03/24/23 07:30 Dose: 0.5 mg Documented By: GRETTA Cefazolin Sodium/Dextrose (Ancef) 2 gm in 50 mls @ 100 mls/hr IV ONCE VARGAS Last Infusion: 03/22/23 14:16 Dose: 0 mls/hr Documented By: HEIDY Cefazolin Sodium/Dextrose (Ancef) 2 gm in 50 mls @ 100 mls/hr IV Q8H [facility] Last Infusion: 03/24/23 07:13 Dose: 0 mls/hr Documented By: GRETTA Lactic Acid (Ammonium Lactate 12 % Lotion 226 Gm Bottle) 1 appl TOPICAL BID [facility]; Protocol Last Admin: 03/24/23 09:19 Dose: 1 appl Documented By: GRETTA Lidocaine/Diphenhydr/Alum/Mg/Simeth (Mag&Al/Sim/Diphenhyd/Lidocaine 10 Ml Oral.Susp) 10 ml PO Q4H [facility]; Protocol Last Admin: 03/24/23 11:09 Dose: 10 ml Documented By: GRETTA Methadone HCl (Methadone Hcl 20 Mg/2 Ml Oral.Conc) 135 mg PO DAILY [facility] Last Admin: 03/24/23 09:18 Dose: 135 mg Documented By: GRETTA Nicotine (Nicotine 14 Mg Patch.Td24) 14 mg TRANSDERMA DAILY [facility] Last Admin: 03/24/23 09:20 Dose: 14 mg Documented By: GRETTA Pharmacy Consult (Consult Rx Perform Med Rec) 1 each MISCELLANE ONCE PRN PRN Reason: Consult order Sodium Chloride (0.9 % Sodium Chloride Flush 3 Ml Syringe) 3 ml IVFLUSH QSHIFT [facility] Last Admin: 03/24/23 07:30 Dose: 3 ml Documented By: GRETTA Vitamin D (Cholecalciferol (Vitamin D3) 25 Mcg Tablet) 50 mcg PO DAILY [facility] Last Admin: 03/24/23 09:19 Dose: 50 mcg Documented By: GRETTA Warfarin Sodium (Warfarin Sodium 4 Mg Tablet) 4 mg PO DAILY@1800 [facility] Labs 03/22/23 06:33 03/24/23 06:15 Labs: Laboratory Results - last 24 hr 03/23/23 03/23/23 03/24/23 16:09 20:25 06:15 PT INR Anion Gap 7 L Estim Creat Clear Calc 127.0 Estimated GFR > 60 POC Glucose 107 90 Random Glucose 90 Calcium 7.4 L 03/24/23 03/24/23 03/24/23 06:15 07:04 11:08 PT 34.1 H INR 2.8 H Anion Gap Estim Creat Clear Calc Estimated GFR POC Glucose 86 116 H Random Glucose Calcium Assessment and Plan (1) Venous ulcer of right leg: Status: Acute (2) Cellulitis: Status: Acute (3) YOKASTA (acute kidney injury): Status: Acute Plan 68M PMH morbid obesity with chronic bilateral lymphedema and venous stasis wounds, COPD, PVD, HCV, opiate dependence, HTN, history of VTE, presented with RLE pain severe sepsis due to RLE cellulitis and venous stasis wound infection due to chronic bilateral lymphedema due to morbid obesity ancef, id appreciated - keflex on dc for 1 week cultures - negative significant improvement in inflammatory markers, erythema, still with difficulty ambulating, pt recommending rehab surgery input appreciated pending wound care eval YOKASTA differential includes septic ATN, dehydration, NSAID induced holding gerri-i, nsaids resolved COPD with acute hypoxic respiratory failure and acute decompensation duonebs, home inhaler opiate dependence methadone history of VTE with supratherapeutic inr monitor inr coumadin for goal inr 2-3 morbid obesity weight loss recommended htn lisinopril on hold for yokasta/low normal bps hld statin dvt prophylaxis - on coumadin full code reason for continued hospitalization: safe dispo planning Time Spent With Patient Time: Total time managing care of this patient today ____ minutes. Quality Stroke Does the patient have a stroke diagnosis?: No VTE Prior VTE?: Yes VTE Risk Level:: Medical - moderate - high VTE Device Contraindication: Treatment Not Indicated VTE Drug Contraindication: N/A - Med Ordered
--- NOTE | 2023-03-24 12:52 | MHC.CM.PN ---
Addendum entered by Alena Rodgers 03/24/23 15:45: MAIN FROM [facility] FAXED RELEASE FORM, PT SIGNED AND FAXED BACK. [facility] HAS OFFERED PT A BED PENDING SET UP OF GUEST DOSING AND CCA AUTH. AWARE. CM WILL CONTINUE TO FOLLOW FOR AUTH AND COMPLETION OF METHADONE GUEST DOSING PROCESS. IMM DELIVERED Original Note: P.T. HAS RECOMMENDED STR. [facility] ARE BOTH UNABLE TO ACCOMMODATE PT WILL NEED TO GO IN A W/C VAN (BOTH CENTERS DO NOT HAVE STRETCHER TRANSPORTATION AVAILABLE) PT WOULD BE UNABLE TO TOLERATE THE LENGTH OF THE RIDE. THIS CM SPOKE WITH [facility] LIAISON AND THEY ARE LOOKING AT BEDS FOR POSSIBLE OFFER. LIAISON REQUESTED CM START THE GUEST DOSING PROCESS. CONTACT AT [facility] (MAIN [phone]) NOTIFIED OF THE PENDING ADMISSION TO [facility] AND REQUESTED THE NECESSARY PAPERWORK TO BE FAXED TO BEGIN PROCESS. AWAITING RETURN CALL.
[2023-03-24 15:20] VITALS: BP 108/52; PULSE 80; RESP 20; TEMP 36.2; O2SAT 92
--- NOTE | 2023-03-24 15:44 | HO.WOUND ---
Wound Care Consult Reason for consult: RLE open wound with drainage Patient has a wound on the right lateral thigh. Wound was open to air at the time of consult. Wound bed appearance was pink and extremely weepy. The tissue seemed engorged with fluid. Wound edges were attached. No undermining or tunneling. Surrounding tissue was a mix of maceration, dry and peeling skin. Thigh was very indurated. Towards the upper thigh, it was still reddened. Large amount of serous drainage. No odor. Wound area measured 38cm x 15cm x0.1cm. Wound was cleansed with sea clens wound cleanser. Xeroform was applied to wound. Because of the sensitivity of the skin in that area, to avoid putting tape on the skin, ABD pads were taped together and applied over the xeroform and secured with #10 elastic retention netting. Recommendation: Cleanse wound with normal saline or sea clens wound cleanser, apply xeroform to wound bed and cover with DCD and the #10 retention netting if that seemed to work out for the patient. If skin sensitivity decreases and patient allows, may use tape on the skin ( ie. medipore, hypafix)
[2023-03-24 16:30] LABS: Glucose, Whole Blood 96 mg/dL (60-115)
[2023-03-24] MEDS: Warfarin Sodium 4 MG TABLET PO (17:00)
[2023-03-24 19:45] VITALS: BP 125/60; PULSE 94; RESP 20; TEMP 36.9; O2SAT 96
[2023-03-24] MEDS: Acetaminophen 325 MG TABLET 650 MG PO (20:04)
[2023-03-25 00:15] LABS: Glucose, Whole Blood 98 mg/dL (60-115)
[2023-03-25] MEDS: HYDROmorphone HCl 0.5 MG/0.5 ML SYRINGE IVPUSH ×5 (01:35→23:16)
[2023-03-25] MEDS: Mag&Al/Sim/Diphenhyd/Lidocaine 10 ML ORAL.SUSP PO ×6 (01:35→21:18)
--- NOTE | 2023-03-25 02:44 | PC.NURSE ---
At first encounter, pt was c/o [place] from his eye itch and redness requesting for Tylenol, Dr. Lucero was made aware, Tylenol given with good effect.
[2023-03-25 03:49] VITALS: BP 126/60; PULSE 80; RESP 18; TEMP 36.4; O2SAT 93
[2023-03-25] MEDS: ceFAZolin Sodium/Dextrose,Iso 2 GM/50 ML PIGGYBACK IV (04:22)
[2023-03-25 06:58] LABS: INTERNATIONAL NORM RATIO 2.8 (0.9-1.1); Prothrombin Time 33.2 SEC (10.0-13.1)
[2023-03-25 07:25] VITALS: BP 119/62; PULSE 88; RESP 17; TEMP 36.7; O2SAT 93
[2023-03-25 07:32] LABS: Glucose, Whole Blood 87 mg/dL (60-115)
[2023-03-25 08:30] VITALS: PULSE 88; RESP 17; O2SAT 93
[2023-03-25] MEDS: Fluticasone/Vilanterol 100/25 BLST.W.DEV 1 PUFF INHALE (08:30)
[2023-03-25] MEDS: 0.9 % Sodium Chloride Flush 3 ML SYRINGE IVFLUSH ×3 (08:58→21:19)
[2023-03-25] MEDS: Ascorbic Acid 500 MG TABLET PO (09:12)
[2023-03-25] MEDS: Nicotine 14 MG PATCH.TD24 TRANSDERMA (09:12)
[2023-03-25] MEDS: Cholecalciferol (Vitamin D3) 25 MCG TABLET 50 MCG PO (09:12)
[2023-03-25] MEDS: methADONE HCl 20 MG/2 ML ORAL.CONC 135 MG PO (09:12)
[2023-03-25] MEDS: Atorvastatin Calcium 40 MG TABLET PO (09:12)
[2023-03-25] MEDS: Ammonium Lactate 12 % Lotion 226 GM BOTTLE 1 APPL TOPICAL ×2 (09:20→21:19)
[2023-03-25 11:36] LABS: Glucose, Whole Blood 109 mg/dL (60-115)
--- NOTE | 2023-03-25 11:45 | P.PNIM_ITS ---
Subjective Subjective Date of Service: 03/25/23 Interval History: Seen and evaluated complaining of generalized weakness wound improving, erythema resolving no other overnight events Review of Systems Review of Systems: Yes all other systems are reviewed and are negative Physical Exam Vital Signs: Vital Signs: Last Vital Signs Temp 98.1 F 03/25/23 07:25 Pulse 88 03/25/23 08:30 Resp 17 03/25/23 08:30 BP 119/62 03/25/23 07:25 Pulse Ox 93 03/25/23 07:25 O2 Del Method Room Air 03/25/23 07:25 O2 Flow Rate 2 03/20/23 20:00 BMI result Body Mass Index 43.6 Const: Other: Constitutional : Awake, interactive, not in distress, obese Neck : Normal inspection, Supple Cardiovascular : RRR, no JVP, no lower extremity edema Respiratory : good bilateral air entry, no crackles, wheezes or rhonchi Gastrointestinal: soft, lax, Normal bowel sounds, Non tender Skin : Warm, Dry LE: right lower extremity redness improving ,dry skin with scaliness, open wound of 6x3 cm, right hip and thigh Wound bed appearance was pink and extremely weepy with less basal erythema covered with dressing Neurological : Alert & oriented x3, No focal deficit Objective Data Active Medications Acetaminophen (Acetaminophen 325 Mg Tablet) 650 mg PO Q8H PRN PRN Reason: Pain, Mild (Pain Scale 1-3) Last Admin: 03/24/23 20:04 Dose: 650 mg Documented By: DESTINY Ascorbic Acid (Ascorbic Acid 500 Mg Tablet) 500 mg PO DAILY [facility] Last Admin: 03/25/23 09:12 Dose: 500 mg Documented By: CARLOS Atorvastatin Calcium (Atorvastatin Calcium 40 Mg Tablet) 40 mg PO DAILY [facility] Last Admin: 03/25/23 09:12 Dose: 40 mg Documented By: CARLSO Benzocaine (Benzocaine 20 % Oral Gel 9 Gm Tube) 1 appl MUCOUS MEM QID PRN; Protocol PRN Reason: mouth pain Last Admin: 03/24/23 09:22 Dose: 1 appl Documented By: GRETTA Fluticasone/Vilanterol (Fluticasone/Vilanterol 100/25 Blst.W.Dev) 1 puff INHALE DAILY [facility] Last Admin: 03/25/23 08:30 Dose: 1 puff Documented By: DANNY Hydromorphone HCl (Hydromorphone Hcl 0.5 Mg/0.5 Ml Syringe) 0.5 mg IVPUSH Q4H PRN; Protocol PRN Reason: moderate pain Last Admin: 03/25/23 05:41 Dose: 0.5 mg Documented By: DESTINY Cefazolin Sodium/Dextrose (Ancef) 2 gm in 50 mls @ 100 mls/hr IV Q8H [facility] Last Infusion: 03/25/23 05:02 Dose: 0 mls/hr Documented By: DESTINY Lactic Acid (Ammonium Lactate 12 % Lotion 226 Gm Bottle) 1 appl TOPICAL BID [facility]; Protocol Last Admin: 03/25/23 09:20 Dose: 1 appl Documented By: CARLOS Lidocaine/Diphenhydr/Alum/Mg/Simeth (Mag&Al/Sim/Diphenhyd/Lidocaine 10 Ml Oral.Susp) 10 ml PO Q4H [facility]; Protocol Last Admin: 03/25/23 09:14 Dose: 10 ml Documented By: CARLOS Methadone HCl (Methadone Hcl 20 Mg/2 Ml Oral.Conc) 135 mg PO DAILY [facility] Last Admin: 03/25/23 09:12 Dose: 135 mg Documented By: CARLOS Nicotine (Nicotine 14 Mg Patch.Td24) 14 mg TRANSDERMA DAILY [facility] Last Admin: 03/25/23 09:12 Dose: 14 mg Documented By: CARLOS Pharmacy Consult (Consult Rx Perform Med Rec) 1 each MISCELLANE ONCE PRN PRN Reason: Consult order Sodium Chloride (0.9 % Sodium Chloride Flush 3 Ml Syringe) 3 ml IVFLUSH QSHIFT [facility] Last Admin: 03/25/23 08:58 Dose: 3 ml Documented By: CARLOS Vitamin D (Cholecalciferol (Vitamin D3) 25 Mcg Tablet) 50 mcg PO DAILY [facility] Last Admin: 03/25/23 09:12 Dose: 50 mcg Documented By: CARLOS Warfarin Sodium (Warfarin Sodium 4 Mg Tablet) 4 mg PO DAILY@1800 [facility] Last Admin: 03/24/23 17:00 Dose: 4 mg Documented By: ANTONYA Labs 03/22/23 06:33 03/24/23 06:15 Labs: Laboratory Results - last 24 hr 03/24/23 03/24/23 03/25/23 16:16 19:48 06:17 PT 33.2 H INR 2.8 H POC Glucose 96 98 03/25/23 03/25/23 07:23 11:31 PT INR POC Glucose 87 109 Assessment and Plan (1) Venous ulcer of right leg: Status: Acute (2) Cellulitis: Status: Acute (3) YOKASTA (acute kidney injury): Status: Acute Plan 68M PMH morbid obesity with chronic bilateral lymphedema and venous stasis wounds, COPD, PVD, HCV, opiate dependence, HTN, history of VTE, presented with RLE pain severe sepsis due to RLE cellulitis and venous stasis wound infection due to chronic bilateral lymphedema due to morbid obesity ancef, id appreciated - keflex on dc for 1 week cultures - negative significant improvement in inflammatory markers, erythema, still with difficulty ambulating, pt recommending rehab surgery input appreciated appreciate wound care eval YOKASTA differential includes septic ATN, dehydration, NSAID induced holding gerri-i, nsaids resolved COPD with acute hypoxic respiratory failure and acute decompensation duonebs, home inhaler opiate dependence methadone history of VTE with supratherapeutic inr monitor inr coumadin for goal inr 2-3 morbid obesity weight loss recommended htn lisinopril on hold for yokasta/low normal bps hld statin dvt prophylaxis - on coumadin full code reason for continued hospitalization: safe dispo planning Time Spent With Patient Time: Total time managing care of this patient today ____ minutes. Quality Stroke Does the patient have a stroke diagnosis?: No VTE Prior VTE?: Yes VTE Risk Level:: Medical - moderate - high VTE Device Contraindication: Treatment Not Indicated VTE Drug Contraindication: N/A - Med Ordered
--- NOTE | 2023-03-25 12:04 | MHC.CM.PN ---
pt ready for dc [facility] considering pt await their decision
--- NOTE | 2023-03-25 12:10 | MHC.CM.PN ---
per rounds pt ready for dc waiting on methadone guest dosing and ins auth which was asked to be resubmitted
[2023-03-25 15:42] VITALS: BP 113/71; PULSE 83; RESP 20; TEMP 36.3; O2SAT 97
[2023-03-25] MEDS: cephALEXin 500 MG CAPSULE PO (15:51)
[2023-03-25 16:36] LABS: Glucose, Whole Blood 95 mg/dL (60-115)
[2023-03-25] MEDS: Warfarin Sodium 4 MG TABLET PO (17:23)
[2023-03-25 19:14] VITALS: BP 123/73; PULSE 90; RESP 20; TEMP 36; O2SAT 94
[2023-03-25 19:51] LABS: Glucose, Whole Blood 111 mg/dL (60-115)
[2023-03-26] VITALS (7 sets, daily range): BP systolic 110–137; BP diastolic 57–65; PULSE 73–95; RESP 16–20; TEMP 36.4–36.8; O2SAT 92–98
[2023-03-26] MEDS: cephALEXin 500 MG CAPSULE PO ×3 (00:06→15:28)
[2023-03-26] MEDS: Mag&Al/Sim/Diphenhyd/Lidocaine 10 ML ORAL.SUSP PO ×6 (03:34→20:41)
[2023-03-26 05:31] LABS: INTERNATIONAL NORM RATIO 2.9 (0.9-1.1); Prothrombin Time 35.2 SEC (10.0-13.1)
[2023-03-26] MEDS: HYDROmorphone HCl 0.5 MG/0.5 ML SYRINGE IVPUSH ×4 (06:19→22:34)
[2023-03-26 08:11] LABS: Glucose, Whole Blood 104 mg/dL (60-115)
[2023-03-26] MEDS: Nicotine 14 MG PATCH.TD24 TRANSDERMA (08:32)
[2023-03-26] MEDS: 0.9 % Sodium Chloride Flush 3 ML SYRINGE IVFLUSH ×3 (08:32→20:41)
[2023-03-26] MEDS: Atorvastatin Calcium 40 MG TABLET PO (08:33)
[2023-03-26] MEDS: Cholecalciferol (Vitamin D3) 25 MCG TABLET 50 MCG PO (08:33)
[2023-03-26] MEDS: methADONE HCl 20 MG/2 ML ORAL.CONC 135 MG PO (08:35)
[2023-03-26] MEDS: Ascorbic Acid 500 MG TABLET PO (08:35)
[2023-03-26] MEDS: Ammonium Lactate 12 % Lotion 226 GM BOTTLE 1 APPL TOPICAL ×2 (08:38→20:41)
[2023-03-26] MEDS: Fluticasone/Vilanterol 100/25 BLST.W.DEV 1 PUFF INHALE (08:38)
--- NOTE | 2023-03-26 09:53 | HO.PM.IMPN ---
Subjective Subjective Date of Service: 03/26/23 Interval History: Seen and evaluated complaining of generalized weakness wound improving, erythema resolving no other overnight events Review of Systems Review of Systems: Yes all other systems are reviewed and are negative Physical Exam Vital Signs: Vital Signs: Last Vital Signs Temp 97.9 F 03/26/23 07:35 Pulse 73 03/26/23 08:39 Resp 16 03/26/23 08:39 BP 121/58 L 03/26/23 07:35 Pulse Ox 92 03/26/23 07:35 O2 Del Method Room Air 03/26/23 07:35 O2 Flow Rate 2 03/20/23 20:00 BMI result Body Mass Index 43.6 Const: Other: Constitutional : Awake, interactive, not in distress, obese Neck : Normal inspection, Supple Cardiovascular : RRR, no JVP, no lower extremity edema Respiratory : good bilateral air entry, no crackles, wheezes or rhonchi Gastrointestinal: soft, lax, Normal bowel sounds, Non tender Skin : Warm, Dry LE: right lower extremity redness improving ,dry skin with scaliness, open wound of 6x3 cm, right hip and thigh Wound bed appearance less pinkish and weepy with less basal erythema covered with dressing Neurological : Alert & oriented x3, No focal deficit Objective Data Active Medications Acetaminophen (Acetaminophen 325 Mg Tablet) 650 mg PO Q8H PRN PRN Reason: Pain, Mild (Pain Scale 1-3) Last Admin: 03/24/23 20:04 Dose: 650 mg Documented By: DESTINY Ascorbic Acid (Ascorbic Acid 500 Mg Tablet) 500 mg PO DAILY [facility] Last Admin: 03/26/23 08:35 Dose: 500 mg Documented By: RHONDA Atorvastatin Calcium (Atorvastatin Calcium 40 Mg Tablet) 40 mg PO DAILY [facility] Last Admin: 03/26/23 08:33 Dose: 40 mg Documented By: RHONDA Benzocaine (Benzocaine 20 % Oral Gel 9 Gm Tube) 1 appl MUCOUS MEM QID PRN; Protocol PRN Reason: mouth pain Last Admin: 03/24/23 09:22 Dose: 1 appl Documented By: GRETTA Cephalexin HCl (Cephalexin 500 Mg Capsule) 500 mg PO Q8H [facility] Last Admin: 03/26/23 08:33 Dose: 500 mg Documented By: RHONDA Fluticasone/Vilanterol (Fluticasone/Vilanterol 100/25 Blst.W.Dev) 1 puff INHALE DAILY [facility] Last Admin: 03/26/23 08:38 Dose: 1 puff Documented By: MYRON Hydromorphone HCl (Hydromorphone Hcl 0.5 Mg/0.5 Ml Syringe) 0.5 mg IVPUSH Q4H PRN; Protocol PRN Reason: moderate pain Last Admin: 03/26/23 06:19 Dose: 0.5 mg Documented By: CHAR Lactic Acid (Ammonium Lactate 12 % Lotion 226 Gm Bottle) 1 appl TOPICAL BID [facility]; Protocol Last Admin: 03/26/23 08:38 Dose: 1 appl Documented By: RHONDA Lidocaine/Diphenhydr/Alum/Mg/Simeth (Mag&Al/Sim/Diphenhyd/Lidocaine 10 Ml Oral.Susp) 10 ml PO Q4H [facility]; Protocol Last Admin: 03/26/23 08:36 Dose: 10 ml Documented By: RHONDA Methadone HCl (Methadone Hcl 20 Mg/2 Ml Oral.Conc) 135 mg PO DAILY [facility] Last Admin: 03/26/23 08:35 Dose: 135 mg Documented By: RHONDA Nicotine (Nicotine 14 Mg Patch.Td24) 14 mg TRANSDERMA DAILY [facility] Last Admin: 03/26/23 08:32 Dose: 14 mg Documented By: RHONDA Pharmacy Consult (Consult Rx Perform Med Rec) 1 each MISCELLANE ONCE PRN PRN Reason: Consult order Sodium Chloride (0.9 % Sodium Chloride Flush 3 Ml Syringe) 3 ml IVFLUSH QSHIFT [facility] Last Admin: 03/26/23 08:32 Dose: 3 ml Documented By: RHONDA Vitamin D (Cholecalciferol (Vitamin D3) 25 Mcg Tablet) 50 mcg PO DAILY [facility] Last Admin: 03/26/23 08:33 Dose: 50 mcg Documented By: RHONDA Warfarin Sodium (Warfarin Sodium 4 Mg Tablet) 4 mg PO DAILY@1800 [facility] Last Admin: 03/25/23 17:23 Dose: 4 mg Documented By: CARLOS Labs 03/22/23 06:33 03/24/23 06:15 Labs: Laboratory Results - last 24 hr 05/19/23 05/19/23 05/19/23 11:31 16:31 19:45 PT INR POC Glucose 109 95 111 03/26/23 03/26/23 05:19 07:53 PT 35.2 H INR 2.9 H POC Glucose 104 Assessment and Plan (1) Venous ulcer of right leg: Status: Acute (2) Cellulitis: Status: Acute Plan 68M PMH morbid obesity with chronic bilateral lymphedema and venous stasis wounds, COPD, PVD, HCV, opiate dependence, HTN, history of VTE, presented with RLE pain severe sepsis due to RLE cellulitis and venous stasis wound infection due to chronic bilateral lymphedema due to morbid obesity ancef, id appreciated - keflex on dc for 1 week cultures - negative significant improvement in inflammatory markers, erythema, still with difficulty ambulating, pt recommending rehab surgery input appreciated appreciate wound care eval YOKASTA differential includes septic ATN, dehydration, NSAID induced holding gerri-i, nsaids resolved COPD with acute hypoxic respiratory failure and acute decompensation duonebs, home inhaler opiate dependence methadone history of VTE with supratherapeutic inr monitor inr coumadin for goal inr 2-3 morbid obesity weight loss recommended htn lisinopril on hold for yokasta/low normal bps hld statin dvt prophylaxis - on coumadin full code reason for continued hospitalization: safe dispo planning Time Spent With Patient Time: Total time managing care of this patient today ____ minutes. Quality Stroke Does the patient have a stroke diagnosis?: No VTE Prior VTE?: Yes VTE Risk Level:: Medical - moderate - high VTE Device Contraindication: Treatment Not Indicated VTE Drug Contraindication: N/A - Med Ordered
[2023-03-26 11:19] LABS: Glucose, Whole Blood 116 mg/dL (60-115)
[2023-03-26 16:17] LABS: Glucose, Whole Blood 125 mg/dL (60-115)
[2023-03-26] MEDS: Warfarin Sodium 4 MG TABLET PO (17:36)
[2023-03-26 20:19] LABS: Glucose, Whole Blood 123 mg/dL (60-115)
[2023-03-27] MEDS: cephALEXin 500 MG CAPSULE PO ×4 (00:04→23:41)
[2023-03-27] MEDS: Mag&Al/Sim/Diphenhyd/Lidocaine 10 ML ORAL.SUSP PO ×6 (03:01→20:39)
[2023-03-27 03:44] VITALS: BP 105/56; PULSE 90; RESP 16; TEMP 36.4; O2SAT 93
[2023-03-27] MEDS: HYDROmorphone HCl 0.5 MG/0.5 ML SYRINGE IVPUSH ×5 (04:10→21:40)
[2023-03-27 06:13] LABS: INTERNATIONAL NORM RATIO 2.9 (0.9-1.1); Prothrombin Time 34.9 SEC (10.0-13.1)
[2023-03-27 07:28] VITALS: BP 114/56; PULSE 94; RESP 18; TEMP 36.8; O2SAT 92
[2023-03-27 07:40] LABS: Glucose, Whole Blood 91 mg/dL (60-115)
[2023-03-27] MEDS: Atorvastatin Calcium 40 MG TABLET PO (07:44)
[2023-03-27] MEDS: Cholecalciferol (Vitamin D3) 25 MCG TABLET 50 MCG PO (07:44)
[2023-03-27] MEDS: Nicotine 14 MG PATCH.TD24 TRANSDERMA (07:44)
[2023-03-27] MEDS: Ascorbic Acid 500 MG TABLET PO (07:45)
[2023-03-27 07:47] VITALS: PULSE 78; RESP 16; O2SAT 92
[2023-03-27] MEDS: Fluticasone/Vilanterol 100/25 BLST.W.DEV 1 PUFF INHALE (07:47)
[2023-03-27] MEDS: 0.9 % Sodium Chloride Flush 3 ML SYRINGE IVFLUSH ×3 (08:10→20:39)
[2023-03-27] MEDS: Ammonium Lactate 12 % Lotion 226 GM BOTTLE 1 APPL TOPICAL ×2 (08:10→20:39)
[2023-03-27] MEDS: methADONE HCl 20 MG/2 ML ORAL.CONC 135 MG PO (08:11)
--- NOTE | 2023-03-27 10:36 | HO.PM.IMPN ---
Subjective Subjective Date of Service: 03/27/23 Interval History: Seen and evaluated complaining of generalized weakness wound improving, erythema resolving no other overnight events Review of Systems Review of Systems: Yes all other systems are reviewed and are negative Physical Exam Vital Signs: Vital Signs: Last Vital Signs Temp 98.3 F 03/27/23 07:28 Pulse 78 03/27/23 07:47 Resp 16 03/27/23 07:47 BP 114/56 L 03/27/23 07:28 Pulse Ox 92 03/27/23 07:28 O2 Del Method Room Air 03/27/23 07:28 O2 Flow Rate 2 03/20/23 20:00 BMI result Body Mass Index 43.6 Const: Other: Constitutional : Awake, interactive, not in distress, obese Neck : Normal inspection, Supple Cardiovascular : RRR, no JVP, no lower extremity edema Respiratory : good bilateral air entry, no crackles, wheezes or rhonchi Gastrointestinal: soft, lax, Normal bowel sounds, Non tender Skin : Warm, Dry LE: right lower extremity redness improving ,dry skin with scaliness, open wound of 6x3 cm covered with dressing , right hip and thigh Wound bed appearance less pinkish and weepy with less basal erythema covered with dressing Neurological : Alert & oriented x3, No focal deficit Objective Data Active Medications Acetaminophen (Acetaminophen 325 Mg Tablet) 650 mg PO Q8H PRN PRN Reason: Pain, Mild (Pain Scale 1-3) Last Admin: 03/24/23 20:04 Dose: 650 mg Documented By: DESTINY Ascorbic Acid (Ascorbic Acid 500 Mg Tablet) 500 mg PO DAILY [facility] Last Admin: 03/27/23 07:45 Dose: 500 mg Documented By: RHONDA Atorvastatin Calcium (Atorvastatin Calcium 40 Mg Tablet) 40 mg PO DAILY [facility] Last Admin: 03/27/23 07:44 Dose: 40 mg Documented By: RHONDA Benzocaine (Benzocaine 20 % Oral Gel 9 Gm Tube) 1 appl MUCOUS MEM QID PRN; Protocol PRN Reason: mouth pain Last Admin: 03/24/23 09:22 Dose: 1 appl Documented By: GRETTA Cephalexin HCl (Cephalexin 500 Mg Capsule) 500 mg PO Q8H [facility] Last Admin: 03/27/23 07:44 Dose: 500 mg Documented By: RHONDA Fluticasone/Vilanterol (Fluticasone/Vilanterol 100/25 Blst.W.Dev) 1 puff INHALE DAILY [facility] Last Admin: 03/27/23 07:47 Dose: 1 puff Documented By: MYRON Hydromorphone HCl (Hydromorphone Hcl 0.5 Mg/0.5 Ml Syringe) 0.5 mg IVPUSH Q4H PRN; Protocol PRN Reason: moderate pain Last Admin: 03/27/23 07:45 Dose: 0.5 mg Documented By: RHONDA Lactic Acid (Ammonium Lactate 12 % Lotion 226 Gm Bottle) 1 appl TOPICAL BID [facility]; Protocol Last Admin: 03/27/23 08:10 Dose: 1 appl Documented By: PIEDAD Lidocaine/Diphenhydr/Alum/Mg/Simeth (Mag&Al/Sim/Diphenhyd/Lidocaine 10 Ml Oral.Susp) 10 ml PO Q4H [facility]; Protocol Last Admin: 03/27/23 08:10 Dose: 10 ml Documented By: PIEDAD Methadone HCl (Methadone Hcl 20 Mg/2 Ml Oral.Conc) 135 mg PO DAILY [facility] Last Admin: 03/27/23 08:11 Dose: 135 mg Documented By: PIEDAD Nicotine (Nicotine 14 Mg Patch.Td24) 14 mg TRANSDERMA DAILY [facility] Last Admin: 03/27/23 07:44 Dose: 14 mg Documented By: RHONDA Pharmacy Consult (Consult Rx Perform Med Rec) 1 each MISCELLANE ONCE PRN PRN Reason: Consult order Sodium Chloride (0.9 % Sodium Chloride Flush 3 Ml Syringe) 3 ml IVFLUSH QSHIFT [facility] Last Admin: 03/27/23 08:10 Dose: 3 ml Documented By: PIEDAD Vitamin D (Cholecalciferol (Vitamin D3) 25 Mcg Tablet) 50 mcg PO DAILY [facility] Last Admin: 03/27/23 07:44 Dose: 50 mcg Documented By: RHONDA Warfarin Sodium (Warfarin Sodium 4 Mg Tablet) 4 mg PO DAILY@1800 [facility] Last Admin: 03/26/23 17:36 Dose: 4 mg Documented By: RHONDA Labs 03/22/23 06:33 03/24/23 06:15 Labs: Laboratory Results - last 24 hr 03/26/23 03/26/23 03/26/23 11:10 16:09 20:14 PT INR POC Glucose 116 H 125 H 123 H 03/27/23 03/27/23 05:56 07:34 PT 34.9 H INR 2.9 H POC Glucose 91 Assessment and Plan (1) Venous ulcer of right leg: Status: Acute (2) Cellulitis: Status: Acute (3) YOKASTA (acute kidney injury): Status: Acute Plan 68M PMH morbid obesity with chronic bilateral lymphedema and venous stasis wounds, COPD, PVD, HCV, opiate dependence, HTN, history of VTE, presented with RLE pain severe sepsis due to RLE cellulitis and venous stasis wound infection due to chronic bilateral lymphedema due to morbid obesity ancef, id appreciated - keflex on dc for 1 week cultures - negative significant improvement in inflammatory markers, erythema and pain still with difficulty ambulating, pt recommending rehab surgery input appreciated appreciate wound care eval YOKASTA differential includes septic ATN, dehydration, NSAID induced holding gerri-i, nsaids resolved COPD with acute hypoxic respiratory failure and acute decompensation duonebs, home inhaler opiate dependence methadone history of VTE with supratherapeutic inr monitor inr coumadin for goal inr 2-3 morbid obesity weight loss recommended htn lisinopril on hold for yokasta/low normal bps hld statin dvt prophylaxis - on coumadin full code reason for continued hospitalization: safe dispo planning Time Spent With Patient Time: Total time managing care of this patient today ____ minutes. Quality Stroke Does the patient have a stroke diagnosis?: No VTE Prior VTE?: Yes VTE Risk Level:: Medical - moderate - high VTE Device Contraindication: Treatment Not Indicated VTE Drug Contraindication: N/A - Med Ordered
[2023-03-27 11:15] LABS: Glucose, Whole Blood 111 mg/dL (60-115)
[2023-03-27 15:14] VITALS: BP 121/59; PULSE 84; RESP 20; TEMP 36.5; O2SAT 95
[2023-03-27 16:32] LABS: Glucose, Whole Blood 90 mg/dL (60-115)
[2023-03-27] MEDS: Warfarin Sodium 4 MG TABLET PO (17:33)
[2023-03-27 19:19] VITALS: BP 110/54; PULSE 95; RESP 16; TEMP 36.5; O2SAT 97
[2023-03-27 19:56] VITALS: BP 110/54; PULSE 95; RESP 16; TEMP 36.5; O2SAT 95
[2023-03-27 20:29] LABS: Glucose, Whole Blood 155 mg/dL (60-115)
[2023-03-28] MEDS: Mag&Al/Sim/Diphenhyd/Lidocaine 10 ML ORAL.SUSP PO ×6 (01:57→20:08)
[2023-03-28] MEDS: HYDROmorphone HCl 0.5 MG/0.5 ML SYRINGE IVPUSH ×5 (01:57→21:26)
[2023-03-28 03:57] VITALS: BP 97/52; PULSE 68; RESP 14; TEMP 36.3; O2SAT 93
[2023-03-28 07:15] VITALS: BP 120/57; PULSE 83; RESP 20; TEMP 36.2; O2SAT 95
[2023-03-28 07:17] LABS: Prothrombin Time 36.5 SEC (10.0-13.1)
[2023-03-28 07:25] LABS: Glucose, Whole Blood 97 mg/dL (60-115)
[2023-03-28] MEDS: Fluticasone/Vilanterol 100/25 BLST.W.DEV 1 PUFF INHALE (08:02)
[2023-03-28 08:03] VITALS: PULSE 84; RESP 18; O2SAT 95
[2023-03-28] MEDS: Ascorbic Acid 500 MG TABLET PO (08:49)
[2023-03-28] MEDS: Cholecalciferol (Vitamin D3) 25 MCG TABLET 50 MCG PO (08:49)
[2023-03-28] MEDS: Atorvastatin Calcium 40 MG TABLET PO (08:49)
[2023-03-28] MEDS: cephALEXin 500 MG CAPSULE PO ×3 (08:49→23:41)
[2023-03-28] MEDS: Nicotine 14 MG PATCH.TD24 TRANSDERMA (08:49)
[2023-03-28] MEDS: methADONE HCl 20 MG/2 ML ORAL.CONC 135 MG PO (08:49)
[2023-03-28] MEDS: Ammonium Lactate 12 % Lotion 226 GM BOTTLE 1 APPL TOPICAL ×2 (08:50→20:08)
[2023-03-28 11:21] LABS: Glucose, Whole Blood 105 mg/dL (60-115)
[2023-03-28] MEDS: Acetaminophen 325 MG TABLET 650 MG PO (13:30)
--- NOTE | 2023-03-28 13:34 | HO.PM.IMPN ---
Subjective Subjective Date of Service: 03/28/23 Interval History: Seen and evaluated feels better overall and want to start PT wound improving, erythema resolving no other overnight events Review of Systems Review of Systems: Yes all other systems are reviewed and are negative Physical Exam Vital Signs: Vital Signs: Last Vital Signs Temp 97.2 F 03/28/23 07:15 Pulse 84 03/28/23 08:03 Resp 18 03/28/23 08:03 BP 120/57 L 03/28/23 07:15 Pulse Ox 95 03/28/23 07:15 O2 Del Method Room Air 03/28/23 03:57 O2 Flow Rate 96 03/27/23 19:19 BMI result Body Mass Index 43.6 Const: Other: Constitutional : Awake, interactive, not in distress, obese Neck : Normal inspection, Supple Cardiovascular : RRR, no JVP, no lower extremity edema Respiratory : good bilateral air entry, no crackles, wheezes or rhonchi Gastrointestinal: soft, lax, Normal bowel sounds, Non tender Skin : Warm, Dry LE: right lower extremity redness improving ,dry skin with scaliness, open wound of 6x3 cm covered with dressing , right hip and thigh Wound bed appearance less pinkish and weepy with less basal erythema covered with dressing Neurological : Alert & oriented x3, No focal deficit Objective Data Active Medications Acetaminophen (Acetaminophen 325 Mg Tablet) 650 mg PO Q8H PRN PRN Reason: Pain, Mild (Pain Scale 1-3) Last Admin: 03/24/23 20:04 Dose: 650 mg Documented By: DESTINY Ascorbic Acid (Ascorbic Acid 500 Mg Tablet) 500 mg PO DAILY [facility] Last Admin: 03/28/23 08:49 Dose: 500 mg Documented By: JUANITA Atorvastatin Calcium (Atorvastatin Calcium 40 Mg Tablet) 40 mg PO DAILY [facility] Last Admin: 03/28/23 08:49 Dose: 40 mg Documented By: JUANITA Benzocaine (Benzocaine 20 % Oral Gel 9 Gm Tube) 1 appl MUCOUS MEM QID PRN; Protocol PRN Reason: mouth pain Last Admin: 03/24/23 09:22 Dose: 1 appl Documented By: GRETTA Cephalexin HCl (Cephalexin 500 Mg Capsule) 500 mg PO Q8H [facility] Last Admin: 03/28/23 08:49 Dose: 500 mg Documented By: JUANITA Fluticasone/Vilanterol (Fluticasone/Vilanterol 100/25 Blst.W.Dev) 1 puff INHALE DAILY [facility] Last Admin: 03/28/23 08:02 Dose: 1 puff Documented By: BRESNE Hydromorphone HCl (Hydromorphone Hcl 0.5 Mg/0.5 Ml Syringe) 0.5 mg IVPUSH Q4H PRN; Protocol PRN Reason: moderate pain Last Admin: 03/28/23 06:11 Dose: 0.5 mg Documented By: JUDY Lactic Acid (Ammonium Lactate 12 % Lotion 226 Gm Bottle) 1 appl TOPICAL BID [facility]; Protocol Last Admin: 03/28/23 08:50 Dose: 1 appl Documented By: JUANITA Lidocaine/Diphenhydr/Alum/Mg/Simeth (Mag&Al/Sim/Diphenhyd/Lidocaine 10 Ml Oral.Susp) 10 ml PO Q4H [facility]; Protocol Last Admin: 03/28/23 08:49 Dose: 10 ml Documented By: JUANITA Methadone HCl (Methadone Hcl 20 Mg/2 Ml Oral.Conc) 135 mg PO DAILY [facility] Last Admin: 03/28/23 08:49 Dose: 135 mg Documented By: JUANITA Nicotine (Nicotine 14 Mg Patch.Td24) 14 mg TRANSDERMA DAILY [facility] Last Admin: 03/28/23 08:49 Dose: 14 mg Documented By: JUANITA Pharmacy Consult (Consult Rx Perform Med Rec) 1 each MISCELLANE ONCE PRN PRN Reason: Consult order Sodium Chloride (0.9 % Sodium Chloride Flush 3 Ml Syringe) 3 ml IVFLUSH QSHIFT [facility] Last Admin: 03/28/23 08:56 Dose: Not Given Documented By: JUANITA Non-Admin Reason: Previously Administered Vitamin D (Cholecalciferol (Vitamin D3) 25 Mcg Tablet) 50 mcg PO DAILY [facility] Last Admin: 03/28/23 08:49 Dose: 50 mcg Documented By: JUANITA Warfarin Sodium (Warfarin Sodium 4 Mg Tablet) 4 mg PO DAILY@1800 [facility] Last Admin: 03/27/23 17:33 Dose: 4 mg Documented By: ABIINNM Labs 03/22/23 06:33 03/24/23 06:15 Labs: Laboratory Results - last 24 hr 03/27/23 03/27/23 03/28/23 16:15 20:12 07:06 PT 36.5 H INR 3.0 H POC Glucose 90 155 H 03/28/23 03/28/23 07:18 11:15 PT INR POC Glucose 97 105 Assessment and Plan (1) Venous ulcer of right leg: Status: Acute (2) Cellulitis: Status: Acute Plan 68M PMH morbid obesity with chronic bilateral lymphedema and venous stasis wounds, COPD, PVD, HCV, opiate dependence, HTN, history of VTE, presented with RLE pain severe sepsis due to RLE cellulitis and venous stasis wound infection due to chronic bilateral lymphedema due to morbid obesity ancef, id appreciated - keflex on dc for 1 week cultures - negative significant improvement in inflammatory markers, erythema and pain still with difficulty ambulating, pt recommending rehab surgery input appreciated appreciate wound care eval YOKASTA differential includes septic ATN, dehydration, NSAID induced holding gerri-i, nsaids resolved COPD with acute hypoxic respiratory failure and acute decompensation duonebs, home inhaler opiate dependence methadone history of VTE with supratherapeutic inr monitor inr coumadin for goal inr 2-3 morbid obesity weight loss recommended htn lisinopril on hold for yokasta/low normal bps hld statin dvt prophylaxis - on coumadin full code reason for continued hospitalization: safe dispo planning Time Spent With Patient Time: Total time managing care of this patient today ____ minutes. Quality Stroke Does the patient have a stroke diagnosis?: No VTE Prior VTE?: Yes VTE Risk Level:: Medical - moderate - high VTE Device Contraindication: Treatment Not Indicated VTE Drug Contraindication: N/A - Med Ordered
--- NOTE | 2023-03-28 13:41 | MHC.CM.PN ---
per rounds pt is ready for dc still waiting for ins auth at [facility] time
[2023-03-28] MEDS: 0.9 % Sodium Chloride Flush 3 ML SYRINGE IVFLUSH ×2 (15:52→20:08)
[2023-03-28 16:28] LABS: Glucose, Whole Blood 133 mg/dL (60-115)
[2023-03-28] MEDS: Warfarin Sodium 4 MG TABLET PO (16:56)
[2023-03-28 19:25] VITALS: BP 120/58; PULSE 76; RESP 17; TEMP 36.1; O2SAT 95
[2023-03-28 20:52] LABS: Glucose, Whole Blood 95 mg/dL (60-115)
[2023-03-29] MEDS: Mag&Al/Sim/Diphenhyd/Lidocaine 10 ML ORAL.SUSP PO (01:44)
[2023-03-29] MEDS: HYDROmorphone HCl 0.5 MG/0.5 ML SYRINGE IVPUSH ×3 (01:44→10:29)
[2023-03-29 04:00] VITALS: BP 133/65; PULSE 97; RESP 17; TEMP 36.2; O2SAT 96
[2023-03-29] MEDS: Acetaminophen 325 MG TABLET 650 MG PO (05:03)
[2023-03-29 06:35] LABS: INTERNATIONAL NORM RATIO 2.2 (0.9-1.1); Prothrombin Time 25.8 SEC (10.0-13.1)
[2023-03-29 07:06] VITALS: BP 121/58; PULSE 89; RESP 20; TEMP 36; O2SAT 96
[2023-03-29] MEDS: Fluticasone/Vilanterol 100/25 BLST.W.DEV 1 PUFF INHALE (07:40)
[2023-03-29 07:41] VITALS: PULSE 88; RESP 18; O2SAT 96
[2023-03-29] MEDS: Ascorbic Acid 500 MG TABLET PO (07:44)
[2023-03-29] MEDS: methADONE HCl 20 MG/2 ML ORAL.CONC 135 MG PO (07:44)
[2023-03-29] MEDS: Nicotine 14 MG PATCH.TD24 TRANSDERMA (07:44)
[2023-03-29] MEDS: cephALEXin 500 MG CAPSULE PO (07:44)
[2023-03-29] MEDS: Atorvastatin Calcium 40 MG TABLET PO (07:44)
[2023-03-29] MEDS: Cholecalciferol (Vitamin D3) 25 MCG TABLET 50 MCG PO (07:44)
[2023-03-29] MEDS: 0.9 % Sodium Chloride Flush 3 ML SYRINGE IVFLUSH (07:45)
[2023-03-29] MEDS: Ammonium Lactate 12 % Lotion 226 GM BOTTLE 1 APPL TOPICAL (07:45)
[2023-03-29 07:55] LABS: Glucose, Whole Blood 105 mg/dL (60-115)
[2023-03-29 09:40] LABS: COVID-19 Test Negative (Negative); IDNOW Serial# 55D5AD1C
--- NOTE | 2023-03-29 09:45 | PM.DS ---
DS: Providers Provider Date of Service: 03/29/23 Date of admission: 03/17/23 13:27 Primary care physician: Bette Steinberg MD Consults: 03/17/23 13:25 Consult to Infectious Diseases Routine Consulting Provider: [facility] Infect[facility] Disease Reason for consultation: RLE lymphedema with cellulitis and wound infection 03/23/23 10:44 Consult to General Surgery Routine Consulting Provider: [facility] [place] General Surgeons Reason for consultation: Rt hip blisters and indurated skin, RLE open wound Consult to Wound Care Routine Consulting Provider: Marsha Garcia Reason for consultation: RLE open wound with drainage DS: Diagnosis Discharge Diagnosis (1) Venous ulcer of right leg: Status: Acute (2) Cellulitis: Status: Acute (3) YOKASTA (acute kidney injury): Status: Acute (4) Physical deconditioning: Status: Acute (5) Narcotic addiction: Status: Acute (6) Morbid obesity due to excess calories: Status: Acute DS: Summary Hospital Course Hospital Course: Admission note HPI 68M PMH morbid obesity with chronic bilateral lymphedema and venous stasis wounds, COPD, PVD, HCV, opiate dependence, HTN, history of VTE, presented with RLE pain. patient follows with wound care at [facility]. he reports getting debridement about 1 week ptp. since then complaining of worsening pain, swelling, and erythema in RLE. pain on day of presentation was 10/10. he has not been able to eat much, feeling winded, and has been taking about 1gm/day of advil for pain. in ED found to have leukocytosis, YOKASTA. Hospital course admitted for severe sepsis due to RLE cellulitis and venous stasis wound infection due to chronic bilateral lymphedema due to morbid obesity. Treated with IV ancef with good response as sepsis resolved and cultures came back negative with improvement of erythema and pain. ID recommended keflex on discharge. Seen by surgery and wound care team for chronic venous ulcer and skin wound in lateral right thigh. recommended local care and dressing as detailed below. Presented with acute kidney injury likely from infection and dehydration. improved with holding lisinopril. Blood pressure noted to be running soft off Lisinopril. will keep it on hold at time of discharge. to be followed at facility to check the need to restart it. Had COPD with acute hypoxic respiratory failure and acute decompensation on presentation treated with duonebs, home inhaler with good response. off Oxygen supplement. Hold Lisinopril, monitor blood pressure for 1 week and restart if elevated readings Continue Ceftin as prescribed Ammonium lactate lotion twice daily for lower extremities Right hip wound; Cleanse wound with normal saline or wound cleanser, apply xeroform to wound bed and cover with DCD and the #10 retention netting. If skin sensitivity decreases may use tape on the skin ( ie. medipore, hypafix) PAtient will likely need less than 30 days in SNF Time Spent with Patient Time attestation: Total time managing care of this patient today ____ minutes. Discharge coordination time: Greater than 30 minutes Quality: Safe Use of Opioids Does Pt have an Active Cancer Diagnosis on the Problem List?: No Quality: Stroke Does the patient have a stroke diagnosis?: No Physical Exam Vital Signs: Vital Signs: Last Vital Signs Temp 96.8 F 03/29/23 07:06 Pulse 88 03/29/23 07:41 Resp 18 03/29/23 07:41 BP 121/58 L 03/29/23 07:06 Pulse Ox 96 03/29/23 07:06 O2 Del Method Room Air 03/29/23 07:06 O2 Flow Rate 96 03/27/23 19:19 BMI result Body Mass Index 43.6 Const: Other: Constitutional : Awake, interactive, not in distress, obese Neck : Normal inspection, Supple Cardiovascular : RRR, no JVP, no lower extremity edema Respiratory : good bilateral air entry, no crackles, wheezes or rhonchi Gastrointestinal: soft, lax, Normal bowel sounds, Non tender Skin : Warm, Dry LE: right lower extremity redness improving ,dry skin with scaliness, open wound of 6x3 cm covered with dressing , right hip and thigh Wound bed appearance less pinkish and weepy with less basal erythema covered with dressing Neurological : Alert & oriented x3, No focal deficit DS: Data Data Completed and Pending Completed studies during hospitalization [Text1]: Procedures Respiratory Ventilation, Less than 24 Consecutive Hours (10/07/21) Supplement Right Inguinal Region with Synthetic Substitute, Open Approach (10/07/21) Labs on day of discharge: Laboratory Results - last 24 hr 03/28/23 03/28/23 03/28/23 11:15 16:12 20:44 PT INR POC Glucose 105 133 H 95 COVID-19 ([facility]) COVID-19 Clin Com 03/29/23 03/29/23 03/29/23 05:12 07:12 09:15 PT 25.8 H INR 2.2 H POC Glucose 105 COVID-19 ([facility]) Negative COVID-19 Clin Com See Note Imaging Chest x-ray: Radiologist's impression: ITS Impressions Chest X-Ray 03/17/23 11:15 IMPRESSION: Mild diffuse interstitial thickening could be accentuated by low lung volumes or related with bronchial thickening in the setting of small airways disease or atypical/viral infections. No focal consolidation. No pleural effusion or pneumothorax. Venous Duplex 03/17/23 11:23 IMPRESSION: No DVT demonstrated in the right lower extremity. The peroneal veins however are not visualized by the air antisubmarine officer It should also be noted that there are prominent lymph nodes in the right groin. These may be reactive. Malignancy cannot be excluded Discharge Plan Discharge Anticipated Discharge Date/Time: 03/29/23 09:33 Patient Disposition: Xfer [facility] Discharge Diagnosis: Venous ulcer cellulitis Kidney injury Referrals: [facility] [Other] - 1 Week Bette Steinberg MD [Primary Care Provider] - 1 Week Discharge Medications: New ammonium lactate 12 % Lotion 1 appl topical BID 30 Days Qty: 400 2RF Protocol: Apply to: Apply to: RLE cephalexin 500 mg Capsule 500 mg PO Q8H 5 Days Qty: 15 0RF Mag&Al/Sim/Diphenhyd/Lidocaine [Magic Mouthwash] 10 ml PO Q4H 7 Days 0RF Continued methadone 10 mg/5 mL Solution 135 mg PO DAILY fluticasone propion-salmeterol 250-50 mcg/dose blister with device 1 puff inhalation DAILY sennosides-docusate sodium [Stool Softener-Stimulant Laxat] 8.6-50 mg tablet 2 tab PO DAILY PRN (Reason: Constipation) warfarin 3 mg tablet 6 mg PO DAILY ascorbic acid (vitamin C) [Vitamin C] 500 mg tablet 1 tab PO DAILY ammonium lactate 12 % cream 1 applic topical BID PRN (Reason: Rash) furosemide 20 mg tablet 1 tab PO BID rosuvastatin 10 mg tablet 1 tab PO DAILY vitamin B complex-folic acid [Complex B-100] 400 mcg tablet extended release 1 tab PO DAILY (DME) dionne Chanelc See Rx Instructions .ROUTE Qty: 1 0RF Rx Instructions: As directed cholecalciferol (vitamin D3) 50 mcg (2,000 unit) tablet 50 mcg PO DAILY omega [id number]-[id number] oil 1,000 mg (120 mg-180 mg) capsule 1 cap PO DAILY Held lisinopril 40 mg tablet 1 tab PO DAILY Hold Instructions: Monitor BP for 1 week and restart if elevated Discontinued doxycycline hyclate 100 mg tablet 100 mg PO BID Discharge Orders: Discharge Order (Routine); Ordered 03/29/23 Ordered By: Rodriguez Marinelli Diet: Advance to usual diet Activity on Discharge: As tolerated Stand Alone Forms: Patient Portal Discharge page Care Plan Goals: Read below Health Concerns: Read below Plan of Treatment: Read below Assessment: You were admitted for treatment of skin infection related to chronic venous ulcer. responded well to IV antibiotics as you were evaluated by infectious specialist, surgery and wound care team who recommended skin care and dressing. noticed to have kidney injury which resolved during hospital stay. Hold Lisinopril, monitor blood pressure for 1 week and restart if elevated readings Continue Ceftin as prescribed Ammonium lactate lotion twice daily for lower extremities Right hip wound; Cleanse wound with normal saline or wound cleanser, apply xeroform to wound bed and cover with DCD and the #10 retention netting. If skin sensitivity decreases may use tape on the skin ( ie. medipore, hypafix)
[2023-03-29 11:49] LABS: Glucose, Whole Blood 108 mg/dL (60-115)
== END 2023-03-29 12:08 | disposition skilled nursing facility (03) | DRG 871 ==
LOC: HO.ED 10:58 → HO.EDOVER 13:31 → HO.S3 14:09
PROVIDERS: Admitting Provider Internal Medicine; Emergency Provider Emergency Medicine; PCP Internal Medicine Geriatric Medicine; Visit Provider Student in an Organized Health Care Education/Training Program
DX: A41.9 Sepsis, unspecified organism (principal); J96.01 Acute respiratory failure with hypoxia; N17.0 Acute kidney failure with tubular necrosis; F11.20 Opioid dependence, uncomplicated; J44.1 Chronic obstructive pulmonary disease with (acute) exacerbation; I87.311 Chronic venous hypertension (idiopathic) with ulcer of right lower extremity; Z68.41 Body mass index [BMI] 40.0-44.9, adult; L03.115 Cellulitis of right lower limb; E87.1 Hypo-osmolality and hyponatremia; L97.811 Non-pressure chronic ulcer of other part of right lower leg limited to breakdown of skin; E87.6 Hypokalemia; R65.20 Severe sepsis without septic shock; R79.1 Abnormal coagulation profile; E78.5 Hyperlipidemia, unspecified; E66.01 Morbid (severe) obesity due to excess calories; I89.0 Lymphedema, not elsewhere classified; Z20.822 Contact with and (suspected) exposure to COVID-19; Z88.0 Allergy status to penicillin; Z88.5 Allergy status to narcotic agent; Z88.6 Allergy status to analgesic agent; Z79.51 Long term (current) use of inhaled steroids; Z79.899 Other long term (current) drug therapy
CPT/HCPCS: 36415; 71045; 80048; 80053; 81001; 82550; 82947; 83605; 85007; 85027; 85610; 85652; 85730; 86140; 87040; 87502; 87635; 93005; 93971; 94640; 97162; 97530; 99285; J0690; J1170

== ENCOUNTER 2023-05-20 05:44 | Inpatient (IN) | payer OTHER, SELFPAY ==
[2023-05-20] VITALS (15 sets, daily range): BP systolic 95–123; BP diastolic 46–78; PULSE 77–92; RESP 14–20; TEMP 36.1–36.9; O2SAT 92–97; BMI 35.9; BMI 39.7
--- NOTE | ~2023-05-20 | CT_ITS ---
EXAMINATION: CT FEMUR WITH CONTRAST, RIGHT CLINICAL INFORMATION: Cellulitis with drainage. Evaluate for abscess. COMPARISON: None available. TECHNIQUE: Contiguous axial CT images of the right femur were obtained following the IV administration of 85 mL Omnipaque 350 contrast. Multiplanar reformats were provided and reviewed. This CT examination was performed using dose optimization techniques as appropriate, variously including the following: *Automated exposure control *Adjustment of mA and/or kV according to patient size (this includes techniques or standardized protocols for targeted exams where dose is matched to indication/reason for exam; i.e. extremities or head) *Use of iterative reconstruction technique DLP: 385 mGy-cm. FINDINGS: Lateral thigh skin thickening with a focal area of hypodensity within the skin measuring up to 1.6 x 1.6 cm (axial image 212/403) which could represent a blister versus focal ulceration. Prominent underlying subcutaneous stranding. Findings are consistent with acute cellulitis and extend from the lateral aspect of the upper thigh/flank to the lower leg and distally beyond the imaged [id number]. Within the subcutaneous tissues along the periphery of the lateral fascial plane at the level of the mid thigh there is a complex fluid collection with peripheral enhancement measuring up to 8.8 x 4.5 x 16.2 cm (AP by ML by CC), consistent with abscess formation. No adjacent periosteal reaction or cortical erosion to suggest acute osteomyelitis. No acute fracture or dislocation. No concerning lytic or blastic osseous lesion. No evidence of avascular necrosis. Mild right hip osteoarthritis. The visualized muscles and tendons are grossly intact; however, evaluation is limited on CT examination. The visualized intrapelvic structures are unremarkable. CT/CT femur RT w IV con IMPRESSION: 1. Lateral thigh skin thickening with a focal area of hypodensity within the skin measuring up to 1.6 cm which could represent a blister versus focal ulceration. Prominent underlying subcutaneous stranding consistent with acute cellulitis. Underlying abscess along the periphery of the fascial plane measuring up to 16.2 cm in craniocaudal dimension. 2. No adjacent periosteal reaction or cortical erosion to suggest acute osteomyelitis. 3. Mild right hip osteoarthritis.
[2023-05-20 06:46] LABS: Hematocrit 28.3 % (42.0-52.0); Hemoglobin 9.3 g/dl (14.0-18.0); Mean Corpuscular HGB Conc 32.9 g/dl (31.0-36.0); Mean Corpuscular Hemoglobin 31.2 pg (27.0-33.0); Mean Platelet Volume 9.3 fL (9.4-12.4); Platelet Count 270 X10*3/uL (160-400); Red Blood Count 2.98 X10*6/uL (4.60-5.80); Red Cell Distribution Width 14.7 % (11.0-16.0); White Blood Count 5.7 X10*3/uL (4.8-10.8)
[2023-05-20 06:47] LABS: Alanine Aminotransferase 5 U/L (0-40); Albumin Level 3.3 g/dL (3.5-5.0); Alkaline Phosphatase 53 U/L (39-117); Anion Gap 14 (12-20); Aspartate Amino Transferase 15 U/L (5-37); Bilirubin Total 0.4 mg/dL (0.0-1.0); Blood Urea Nitrogen 22 mg/dL (9-16); Calcium 9.5 mg/dL (8.4-10.2); Carbon Dioxide 28 mmol/L (22-29); Chloride 99 mmol/L (96-108); Creatinine Clr Calc Pharmacy 75.7; Estimated Glomerular Filt Rate 60; Glucose Random 94 mg/dL (60-115); Potassium 4.3 mmol/L (3.3-5.1); Sodium 137 mmol/L (135-145); Total Protein 7.2 g/dL (6.5-8.0)
--- NOTE | 2023-05-20 07:05 | ED_ITS ---
HPI - Extremity Problem General Chief complaint: Extremity Problem Stated complaint: Right leg cellulitis? Time Seen by Provider: 05/20/23 06:28 Source: patient Mode of arrival: ambulatory Limitations: no limitations History of Present Illness HPI Narrative: 68 year old male patient with history of HLD, HTN, OHS, history of RLE cellulitis requiring admission to [facility] [place] in March, hx VTE on Coumadin, HCV, COPD, morbid obesity, opiate dependence on methadone, and asthma presents to the ED today for cellulitis on his upper thigh that has been draining. Yesterday 05/19/23 he saw his PCP and they told him to present to the ED due to the extent of drainage and quality of the wound. Patient states that this has been present for a month and recently on Tuesday05/14/23 the amount of drainage increased significantly. He states at night he gets chills but no know measured fevers. He has had on going vascular and wound care over the past for years at [facility] for wounds on his lower legs but this is the first instance with his upper thigh. Patient denies recent antibiotic use. He states over the last 1 week he has gai katie 10lbs in water weight. He has some intermittent SOB but denies chest pain. MD Complaint: extremity pain and extremity swelling Onset (ago): week(s) Pain Consistency: constant Location: right Severity scale (1-10): 3 Quality: aching Radiation: none Relieving factors: rest Exacerbating factors: walking Associated symptoms: denies other symptoms Context: history of peripheral vascular disease Related Data Home Medications Medication Instructions Recorded Confirmed ammonium lactate 12 % topical cream 1 applic topical BID PRN Rash 10/07/21 03/17/23 ascorbic acid (vitamin C) 500 mg 1 tab PO DAILY 10/07/21 03/17/23 tablet (Vitamin C) fluticasone 250 mcg-salmeterol 50 1 puff inhalation DAILY 10/07/21 03/17/23 mcg/dose blistr powdr for inhalation furosemide 20 mg tablet 1 tab PO BID 10/07/21 03/17/23 lisinopril 40 mg tablet 1 tab PO DAILY 10/07/21 03/17/23 methadone 10 mg/5 mL oral solution 135 mg PO DAILY 10/07/21 03/18/23 rosuvastatin 10 mg tablet 1 tab PO DAILY 10/07/21 03/17/23 sennosides 8.6 mg-docusate sodium 2 tab PO DAILY PRN Constipation 10/07/21 03/17/23 50 mg tablet (Stool Softener-Stimulant Laxative) vitamin B complex-folic acid ER 1 tab PO DAILY 10/07/21 03/17/23 400 mcg tablet,extended release (Complex B-100) warfarin 3 mg tablet 6 mg PO DAILY 10/07/21 10/07/21 cholecalciferol (vitamin D3) 50 50 mcg PO DAILY 03/17/23 03/17/23 mcg (2,000 unit) tablet omega 9-hog-rfu-fish oil 1,000 mg 1 cap PO DAILY 03/17/23 03/17/23 (120 mg-180 mg) capsule Previous Rx's Medication Instructions Recorded walker #1 ea 10/15/21 Mag&Al/Sim/Diphenhyd/Lidocaine 10 ml PO Q4H 7 days 03/29/23 [Magic Mouthwash] ammonium lactate 12 % lotion 1 appl topical BID 30 days #400 03/29/23 grams cephalexin 500 mg capsule 500 mg PO Q8H 5 days #15 caps 03/29/23 Allergies Allergy/AdvReac Type Severity Reaction Status Date / Time ibuprofen Allergy Unknown HIVES/STOMACHE Verified 03/17/23 10:10 UPSET Penicillins Allergy Unknown COMA Verified 03/17/23 10:10 tramadol Allergy Unknown Verified 03/17/23 10:10 Review of Systems Review of Systems: Yes all other systems are reviewed and are negative Constitutional: Constitutional: Reports no additional constitutional complaints Cardiovascular: Cardiovascular: Reports no additional cardiovascular complaints Respiratory: Respiratory: Reports no additional respiratory complaints Gastrointestinal: Gastrointestinal: Reports no additional gastrointestinal complaints Genitourinary: Genitourinary: Reports no additional male genitourinary complaints Musculoskeletal: Musculoskeletal: Reports numbness Integumentary/Breasts: Skin/Breast: Reports swelling, Reports changing lesions, Reports lesions and Reports wounds Neurologic: Reports system reviewed and no additional complaints, except as documented and Reports numbness Psychiatric: Psychiatric: Reports no additional psychiatric complaints Endocrine: Endocrine: Reports no additional endocrine complaints Hematologic/Lymphatic: Hematologic/Lymphatic: Reports no additional hematologic/lymphatic complaints Allergic/Immunologic: Allergic/Immunologic: Reports no additional allergic/immunologic complaints PMFSH Past Medical History Medical History (Updated 05/20/23 @ 09:02 by FAROOQ Lau) Cellulitis Chronic back pain Chronic venous stasis dermatitis of both lower extremities DVT (deep venous thrombosis) Hepatitis C Hyperlipidemia Hypertensive cardiovascular disease Morbid obesity due to excess calories Narcotic addiction Obesity hypoventilation syndrome Osteoarthritis Pulmonary embolism Sleep apnea Venous ulcer of right leg Surgical History History of arthroscopy of both knees History of repair of cleft lip Social History Social History Household Members: Other Housing: Apartment Do you presently have visiting nurse or other home services: Yes Patient Tobacco Use Status: Current everyday Tobacco user Tobacco use type: Cigarette Cigarette Packs Per Day: 1 Cigarettes Per Day: 20.0 Years Smoked: 30 Smoked in Last 30 Days: Yes e-Cigarette/Vaping Use: Currently Using Second Hand Smoke Exposure: No Use of substances other than those prescribed or required for medical reasons: No Substance Use Type: Marijuana Advance Directives: No Advance Directives Information Provided: No service: No Current occupational status: disabled Physical Exam Vital Signs: Vital Signs: Last Vital Signs Temp 98.5 F 05/20/23 05:58 Pulse 86 05/20/23 05:58 Resp 14 05/20/23 05:58 BP 106/54 L 05/20/23 05:58 Pulse Ox 93 05/20/23 05:58 O2 Del Method Room Air 05/20/23 05:58 BMI result Body Mass Index 35.9 Appearance: Alert. Oriented X3. No acute distress. Head: normocephalic, atraumatic. Eyes: Pupils equal, round and reactive to light. Neck: Normal inspection. Neck supple. CVS: Normal heart rate and rhythm. Pulses normal. Respiratory: No respiratory distress. Breath sounds normal. Skin: Skin warm and dry. Normal skin color. Normal skin turgor. No rashes. Bilateral lower extremity lymphdema. Lateral upper right thigh erythematous, lymphodema with significant induration and drainage.see photo below Extremities: + lower extremity edema with chronic venous stasis changes. right lower leg with surrounding erythema around hyperpigmentation No joint swelling. Neuro/psych: Oriented X 3. No motor deficit. No sensory deficit. Normal speech and cognition. Medications Administered Discontinued Medications Generic Name Dose Route Start Last Admin Trade Name Freq PRN Reason Stop Dose Admin Vancomycin HCl 2,000 mg in 500 mls @ 250 mls/hr 05/20/23 06:59 05/20/23 08:39 Vancomycin/Ns IV 05/20/23 08:58 250 mls/hr ONCE ONE Administration Ceftriaxone Sodium 1 gm/ 50 mls @ 100 mls/hr 05/20/23 06:59 05/20/23 08:39 Sodium Chloride IV 05/20/23 07:28 Infused ONCE ONE Infusion Iohexol 85 ml 05/20/23 08:06 05/20/23 08:08 Iohexol 350 Mg/Ml 100 Ml Infus..Btl IV 05/20/23 08:07 85 ml ONCE ONE Administration IV vancomycin, IV Ceftriaxone. Medical Decision Making Medical Decision Making [facility] Narrative: 68 year old male patient with history of HLD, HTN, OHS, history of RLE cellulitis requiring admission to [facility] [place] in March, hx VTE on Coumadin, HCV, COPD, morbid obesity, opiate dependence, and asthma presents to the ED today for cellulitis on his upper thigh that has been draining. Wound on upper right lateral aspect of thigh is erythematous indurated and draining. CT of right thigh with contrast ordered to r/o abscess IV Vancomycin and Rocephin ordered - hx group G strep and staph aureus in the past per ID note from March ESR, Lactate, CBC, CMP, CRP, Creatine Kinase, and blood cultures drawn. Patient not septic from this infection. VSS. CT scan showing large peripherally inhancing fluid collection c/w abscess. Spoke w/ Dr. Colindres who will I&D the area. He came to the bedside to evaluate the patient - recommending medicine admission. Hospitalist TT for admission. Will keep NPO Differential Diagnosis Differential Diagnoses: The differential diagnosis associated with the presentation includes compartment syndrome, venous insufficiency, abscess (possible MRSA), Cellulitis Admission/Observation Consideration of admission/observation: Escalation of care including admission/observation considered requiring IV abx, I&D, pain control Consult Healthcare Provider Management of the patient was discussed with: Hospitalist and Spacecraft Systems Engineer Dr. Abreu TT Dr. Colindres gen surg Lab Data [facility] Lab Attestation statement: I reviewed the patient's lab results. elevated inflammatory markers, no leukocytosis 05/20/23 06:12 05/20/23 06:12 Labs: Lab Results 05/20/23 05/20/23 05/20/23 Range/Units 06:12 06:12 06:12 WBC 5.7 (4.8-10.8) X10*3/uL RBC 2.98 L (4.60-5.80) X10*6/uL Hgb 9.3 L (14.0-18.0) g/dl Hct 28.3 L (42.0-52.0) % MCV 95.0 (80.0-98.0) fL MCH 31.2 (27.0-33.0) pg MCHC 32.9 (31.0-36.0) g/dl RDW 14.7 (11.0-16.0) % Plt Count 270 (160-400) X10*3/uL MPV 9.3 L (9.4-12.4) fL Absolute Nucleated RBC 0.000 (0.0-0.012) X10*3/uL Nucleated RBC % (auto) 0.0 (0.0-0.2) /100WBC ESR (0-15) MM/HR PT (10.0-13.1) SEC INR (0.9-1.1) Sodium 137 (135-145) mmol/L Potassium 4.3 (3.3-5.1) mmol/L Chloride 99 (96-108) mmol/L Carbon Dioxide 28 (22-29) mmol/L Anion Gap 14 (12-20) BUN 22 H (9-16) mg/dL Creatinine 1.21 (0.5-1.4) mg/dL Estim Creat Clear Calc 75.7 Estimated GFR 60 Random Glucose 94 (60-115) mg/dL Lactic Acid (0.5-2.0) mmol/L Calcium 9.5 D (8.4-10.2) mg/dL Total Bilirubin 0.4 (0.0-1.0) mg/dL AST 15 (5-37) U/L ALT 5 (0-40) U/L Alkaline Phosphatase 53 (39-117) U/L Total Creatine Kinase (38-174) U/L C-Reactive Protein (< or = 0.50) mg/dL B-Natriuretic Peptide 37 (<100) pg/mL Total Protein 7.2 (6.5-8.0) g/dL Albumin 3.3 L (3.5-5.0) g/dL 07/14/23 07/14/23 07/14/23 Range/Units 07:22 07:22 07:22 WBC (4.8-10.8) X10*3/uL RBC (4.60-5.80) X10*6/uL Hgb (14.0-18.0) g/dl Hct (42.0-52.0) % MCV (80.0-98.0) fL MCH (27.0-33.0) pg MCHC (31.0-36.0) g/dl RDW (11.0-16.0) % Plt Count (160-400) X10*3/uL MPV (9.4-12.4) fL Absolute Nucleated RBC (0.0-0.012) X10*3/uL Nucleated RBC % (auto) (0.0-0.2) /100WBC ESR 104 H (0-15) MM/HR PT (10.0-13.1) SEC INR (0.9-1.1) Sodium (135-145) mmol/L Potassium (3.3-5.1) mmol/L Chloride (96-108) mmol/L Carbon Dioxide (22-29) mmol/L Anion Gap (12-20) BUN (9-16) mg/dL Creatinine (0.5-1.4) mg/dL Estim Creat Clear Calc Estimated GFR Random Glucose (60-115) mg/dL Lactic Acid 0.6 (0.5-2.0) mmol/L Calcium (8.4-10.2) mg/dL Total Bilirubin (0.0-1.0) mg/dL AST (5-37) U/L ALT (0-40) U/L Alkaline Phosphatase (39-117) U/L Total Creatine Kinase 30 L (38-174) U/L C-Reactive Protein 7.14 H (< or = 0.50) mg/dL B-Natriuretic Peptide (<100) pg/mL Total Protein (6.5-8.0) g/dL Albumin (3.5-5.0) g/dL 05/20/23 Range/Units 08:12 WBC (4.8-10.8) X10*3/uL RBC (4.60-5.80) X10*6/uL Hgb (14.0-18.0) g/dl Hct (42.0-52.0) % MCV (80.0-98.0) fL MCH (27.0-33.0) pg MCHC (31.0-36.0) g/dl RDW (11.0-16.0) % Plt Count (160-400) X10*3/uL MPV (9.4-12.4) fL Absolute Nucleated RBC (0.0-0.012) X10*3/uL Nucleated RBC % (auto) (0.0-0.2) /100WBC ESR (0-15) MM/HR PT 20.5 H (10.0-13.1) SEC INR 1.7 H (0.9-1.1) Sodium (135-145) mmol/L Potassium (3.3-5.1) mmol/L Chloride (96-108) mmol/L Carbon Dioxide (22-29) mmol/L Anion Gap (12-20) BUN (9-16) mg/dL Creatinine (0.5-1.4) mg/dL Estim Creat Clear Calc Estimated GFR Random Glucose (60-115) mg/dL Lactic Acid (0.5-2.0) mmol/L Calcium (8.4-10.2) mg/dL Total Bilirubin (0.0-1.0) mg/dL AST (5-37) U/L ALT (0-40) U/L Alkaline Phosphatase (39-117) U/L Total Creatine Kinase (38-174) U/L C-Reactive Protein (< or = 0.50) mg/dL B-Natriuretic Peptide (<100) pg/mL Total Protein (6.5-8.0) g/dL Albumin (3.5-5.0) g/dL Independent Interpretation I performed an independent interpretation of an: CT Scan Interpretation: Ct scan reviewed - large fluid collection of the right lateral thigh with associated skin changes, agree w/ radiology read Radiology Impression Discussion of test interpretation with radiology: I have reviewed the radiologist's reading. Radiologist Impression: EXAMINATION: CT FEMUR WITH CONTRAST, RIGHT CLINICAL INFORMATION: Cellulitis with drainage. Evaluate for abscess. COMPARISON: None available.? ? TECHNIQUE: Contiguous axial CT images of the right femur were obtained following the IV administration of 85 mL Omnipaque 350 contrast. Multiplanar reformats were provided and reviewed.? This CT examination was performed using dose optimization techniques as appropriate, variously including the following: *Automated exposure control *Adjustment of mA and/or kV according to patient size (this includes techniques or standardized protocols for targeted exams where dose is matched to indication/reason for exam; i.e. extremities or head) *Use of iterative reconstruction technique DLP: 385 mGy-cm. FINDINGS: Lateral thigh skin thickening with a focal area of hypodensity within the skin measuring up to 1.6 x 1.6 cm (axial image 212/403) which could represent a blister versus focal ulceration. Prominent underlying subcutaneous stranding. Findings are consistent with acute cellulitis and extend from the lateral aspect of the upper thigh/flank to the lower leg and distally beyond the imaged [id number]. Within the subcutaneous tissues along the periphery of the lateral fascial plane at the level of the mid thigh there is a complex fluid collection with peripheral enhancement measuring up to 8.8 x 4.5 x 16.2 cm (AP by ML by CC), consistent with abscess formation. No adjacent periosteal reaction or cortical erosion to suggest acute osteomyelitis. No acute fracture or dislocation. No concerning lytic or blastic osseous lesion. No evidence of avascular necrosis. Mild right hip osteoarthritis. The visualized muscles and tendons are grossly intact; however, evaluation is limited on CT examination. The visualized intrapelvic structures are unremarkable. CT/CT femur RT w IV con IMPRESSION: 1. Lateral thigh skin thickening with a focal area of hypodensity within the skin measuring up to 1.6 cm which could represent a blister versus focal ulceration. Prominent underlying subcutaneous stranding consistent with acute cellulitis. Underlying abscess along the periphery of the fascial plane measuring up to 16.2 cm in craniocaudal dimension. 2. No adjacent periosteal reaction or cortical erosion to suggest acute osteomyelitis. 3. Mild right hip osteoarthritis. External Record Review External record reviewed: Inpatient record, Office record, Outpatient record, Prior outpatient labs and Prior outpatient radiology Prescription Management I considered prescription management with: Pain Medication and Antibiotic Chronic Conditions Patient?s care impacted by: Hypertension and Other (HTN, OHS, hx VTE on Coumadin, HCV, COPD, morbid obesity, opiate dependence, and asthma ) Critical Care Time Critical Care Time Critical Care Time: Yes Total Critical Care Time: 39 Attestation: I have personally provided critical care time exclusive of time spent on separately billable procedures. Time includes review of lab data, radiology re sults, discussion with consultants, and monitoring for potential decompensation. Intervention performed as documented. Discharge Plan Discharge Clinical Impression: Cellulitis of right thigh, Abscess of right thigh Patient Disposition: Admitted As Inpatient
[2023-05-20 07:43] LABS: Lactic Acid 0.6 mmol/L (0.5-2.0)
[2023-05-20] MEDS: cefTRIAXone sodium 1 GM in 0.9 % Sodium Chloride 50 ML IV (07:47)
--- NOTE | 2023-05-20 07:49 | PC.NURSE ---
pt aox4. right leg infection/rash on outside of thigh. Draining noted and gauze applied before arrival. pt as returned from CT and 1st ABX Rocephin infusing per mar. burning/stabbing pain on thigh 05/16.
[2023-05-20 07:56] LABS: C Reactive Protein 7.14 mg/dL (< or = 0.50)
[2023-05-20] MEDS: iohexoL 350 MG/ML 100 ML INFUS..BTL 85 ML IV (08:08)
[2023-05-20 08:16] LABS: B Type Natriuretic Peptide 37 pg/mL (<100)
[2023-05-20 08:21] LABS: INTERNATIONAL NORM RATIO 1.7 (0.9-1.1); Prothrombin Time 20.5 SEC (10.0-13.1)
[2023-05-20 08:21] LABS: Erythrocyte Sedimentation Rate 104 MM/HR (0-15)
[2023-05-20] MEDS: vancomycin/NS 2,000 MG/500 ML PLAST..BAG 250 MG IV (08:39)
--- NOTE | 2023-05-20 09:00 | P.CONGS_ITS ---
History of Present Illness Consult details Consult date: 05/20/23 Narrative: 68M with multiple medical problems including acute on chronic respiratory failure, obesity with hypoventilation, hypertensive cardiovascular disease, mostly bedbound, sent to the ED for right thigh swelling and pain. He says he had noticed this about 6 days ago and this seems to have progressed. He has a long hx of PVD with chronic leg edema and ulcers. He is being [facility]oll[facility] by [facility]. He denies fever or chills. He denies trauma or insect bite to the area. He is on Coumadin for a history of PE and DVT. Review of Systems Constitutional: Constitutional: Denies chills and Denies fever(s) Cardiovascular: Cardiovascular: Denies chest pain, Denies chest pain at rest and Reports dyspnea on exertion Respiratory: Respiratory: Denies cough and Reports dyspnea on exertion Gastrointestinal: Gastrointestinal: Denies abdominal pain Genitourinary: Genitourinary: Denies difficulty urinating Musculoskeletal: Musculoskeletal: Reports muscle weakness PMFSH Past Medical History Medical History Cellulitis Chronic back pain Chronic venous stasis dermatitis of both lower extremities DVT (deep venous thrombosis) Hepatitis C Hyperlipidemia Hypertensive cardiovascular disease Morbid obesity due to excess calories Narcotic addiction Obesity hypoventilation syndrome Osteoarthritis Pulmonary embolism Sleep apnea Venous ulcer of right leg Surgical History Surgical History History of arthroscopy of both knees History of repair of cleft lip Social History Social History Household Members: Friend(s) Housing: Apartment Do you presently have visiting nurse or other home services: Yes Patient Tobacco Use Status: Never used Tobacco Tobacco use type: Cigarette Cigarette Packs Per Day: 1 Cigarettes Per Day: 20.0 Years Smoked: 30 e-Cigarette/Vaping Use: Currently Using Second Hand Smoke Exposure: No Substance Use Type: Marijuana service: No Current occupational status: disabled Meds Allergies Allergy/AdvReac Type Severity Reaction Status Date / Time ibuprofen Allergy Unknown HIVES/STOMACHE Verified 03/17/23 10:10 UPSET Penicillins Allergy Unknown COMA Verified 03/17/23 10:10 tramadol Allergy Unknown Verified 03/17/23 10:10 Active Medications: Current Medications Pharmacy Consult (Consult Rx Perform Med Rec) 1 each MISCELLANE ONCE PRN PRN Reason: Consult order Home Medications Medication Instructions Recorded Confirmed Last Taken Type ascorbic acid (vitamin C) 500 mg 1 tab PO BID 10/07/21 05/20/23 05/19/23 History tablet (Vitamin C) furosemide 20 mg tablet 1 tab PO BID 10/07/21 05/20/23 05/19/23 History lisinopril 40 mg tablet 1 tab PO DAILY 10/07/21 05/20/23 05/19/23 History rosuvastatin 10 mg tablet 1 tab PO DAILY 10/07/21 05/20/23 05/19/23 History sennosides 8.6 mg-docusate sodium 1 tab PO BID 10/07/21 05/20/23 05/19/23 History 50 mg tablet (Stool Softener-Stimulant Laxative) vitamin B complex-folic acid ER 1 tab PO DAILY 10/07/21 05/20/23 05/19/23 Hi story 400 mcg tablet,extended release (Complex B-100) warfarin 3 mg tablet 6 mg PO SUTUWETHFRSA@1800 10/07/21 05/20/23 05/19/23 History cholecalciferol (vitamin D3) 50 50 mcg PO DAILY 03/17/23 05/20/23 05/19/23 History mcg (2,000 unit) tablet omega 5-ofq-czc-fish oil 1,000 mg 1 cap PO DAILY 03/17/23 05/20/23 05/19/23 History (120 mg-180 mg) capsule fluticasone 250 mcg-salmeterol 50 1 ea inhalation BID 05/20/23 05/20/23 05/19/23 History mcg/dose blistr powdr for inhalation (Wixela Inhub) verapamil 120 mg 24 hr 120 mg PO DAILY 05/20/23 05/20/23 05/19/23 History capsule,extended release warfarin 3 mg tablet 4.5 mg PO MO@1800 05/20/23 05/20/23 05/16/23 History methadone 10 mg/mL oral concentrate 135 mg PO DAILY 05/21/23 05/21/23 05/20/23 History Physical Exam Vital Signs: Vital Signs: Last Vital Signs Temp 98.5 F 05/20/23 05:58 Pulse 86 05/20/23 05:58 Resp 14 05/20/23 05:58 BP 106/54 L 05/20/23 05:58 Pulse Ox 93 05/20/23 05:58 O2 Del Method Room Air 05/20/23 05:58 BMI result Body Mass Index 35.9 Const: Other: frail looking General: comfortable and no acute distress Resp: Effort & Inspection: normal respiratory effort Cardio: Rate: regular rate GI: Palpation (GI): Soft to palpation and nontender Extrem: Other: large induration,redness on the lateral aspect of right thigh, about 16 cm in craniocaudad dimension, one area with purulent drainage Results Labs 05/20/23 06:12 05/20/23 06:12 Labs: Abnormal lab results 05/20/23 05/20/23 05/20/23 Range/Units 06:12 06:12 07:22 RBC 2.98 L (4.60-5.80) X10*6/uL Hgb 9.3 L (14.0-18.0) g/dl Hct 28.3 L (42.0-52.0) % MPV 9.3 L (9.4-12.4) fL ESR (0-15) MM/HR PT (10.0-13.1) SEC INR (0.9-1.1) BUN 22 H (9-16) mg/dL Total Creatine Kinase 30 L (38-174) U/L C-Reactive Protein 7.14 H (< or = 0.50) mg/dL Albumin 3.3 L (3.5-5.0) g/dL 05/20/23 05/20/23 Range/Units 07:22 08:12 RBC (4.60-5.80) X10*6/uL Hgb (14.0-18.0) g/dl Hct (42.0-52.0) % MPV (9.4-12.4) fL ESR 104 H (0-15) MM/HR PT 20.5 H (10.0-13.1) SEC INR 1.7 H (0.9-1.1) BUN (9-16) mg/dL Total Creatine Kinase (38-174) U/L C-Reactive Protein (< or = 0.50) mg/dL Albumin (3.5-5.0) g/dL Short CBC 05/20/23 Range/Units 06:12 WBC 5.7 (4.8-10.8) X10*3/uL Hgb 9.3 L (14.0-18.0) g/dl Hct 28.3 L (42.0-52.0) % Plt Count 270 (160-400) X10*3/uL BMP 05/20/23 06:12 Sodium 137 Potassium 4.3 Chloride 99 Carbon Dioxide 28 BUN 22 H Creatinine 1.21 Calcium 9.5 D Cardiac Enzymes 05/20/23 Range/Units 07:22 Total Creatine Kinase 30 L (38-174) U/L Liver Function 05/20/23 Range/Units 06:12 Total Bilirubin 0.4 (0.0-1.0) mg/dL AST 15 (5-37) U/L ALT 5 (0-40) U/L Alkaline Phosphatase 53 (39-117) U/L Albumin 3.3 L (3.5-5.0) g/dL All other labs normal. Imaging Additional studies: Laboratory Results WBC 5.7 X10*3/uL (4.8-10.8) 05/20/23 06:12 RBC 2.98 X10*6/uL (4.60-5.80) L 05/20/23 06:12 Hgb 9.3 g/dl (14.0-18.0) L 05/20/23 06:12 Hct 28.3 % (42.0-52.0) L 05/20/23 06:12 MCV 95.0 fL (80.0-98.0) 05/20/23 06:12 MCH 31.2 pg (27.0-33.0) 05/20/23 06:12 MCHC 32.9 g/dl (31.0-36.0) 05/20/23 06:12 RDW 14.7 % (11.0-16.0) 05/20/23 06:12 Plt Count 270 X10*3/uL (160-400) 05/20/23 06:12 MPV 9.3 fL (9.4-12.4) L 05/20/23 06:12 Absolute Nucleated RBC 0.000 X10*3/uL (0.0-0.012) 05/20/23 06:12 Nucleated RBC % (auto) 0.0 /100WBC (0.0-0.2) 05/20/23 06:12 ESR 104 MM/HR (0-15) H 05/20/23 07:22 PT 20.5 SEC (10.0-13.1) H 05/20/23 08:12 INR 1.7 (0.9-1.1) H 05/20/23 08:12 Sodium 137 mmol/L (135-145) 05/20/23 06:12 Potassium 4.3 mmol/L (3.3-5.1) 05/20/23 06:12 Chloride 99 mmol/L (96-108) 05/20/23 06:12 Carbon Dioxide 28 mmol/L (22-29) 05/20/23 06:12 Anion Gap 14 (12-20) 05/20/23 06:12 BUN 22 mg/dL (9-16) H 05/20/23 06:12 Creatinine 1.21 mg/dL (0.5-1.4) 05/20/23 06:12 Estim Creat Clear Calc 75.7 05/20/23 06:12 Estimated GFR 60 05/20/23 06:12 Random Glucose 94 mg/dL (60-115) 05/20/23 06:12 Lactic Acid 0.6 mmol/L (0.5-2.0) 05/20/23 07:22 Calcium 9.5 mg/dL (8.4-10.2) D 05/20/23 06:12 Total Bilirubin 0.4 mg/dL (0.0-1.0) 05/20/23 06:12 AST 15 U/L (5-37) 05/20/23 06:12 ALT 5 U/L (0-40) 05/20/23 06:12 Alkaline Phosphatase 53 U/L (39-117) 05/20/23 06:12 Total Creatine Kinase 30 U/L (38-174) L 05/20/23 07:22 C-Reactive Protein 7.14 mg/dL (< or = 0.50) H 05/20/23 07:22 B-Natriuretic Peptide 37 pg/mL (<100) 05/20/23 06:12 Total Protein 7.2 g/dL (6.5-8.0) 05/20/23 06:12 Albumin 3.3 g/dL (3.5-5.0) L 05/20/23 06:[address] 05/20/23 07:57 IMPRESSION: 1. Lateral thigh skin thickening with a focal area of hypodensity within the skin measuring up to 1.6 cm which could represent a blister versus focal ulceration. Prominent underlying subcutaneous stranding consistent with acute cellulitis. Underlying abscess along the periphery of the fascial plane measuring up to 16.2 cm in craniocaudal dimension. 2. No adjacent periosteal reaction or cortical erosion to suggest acute osteomyelitis. 3. Mild right hip osteoarthritis. Assessment and Plan (1) Abscess of right thigh: Status: Acute His CT scan shows a large abscess on the lateral aspect of the right thigh as described above. I explained to him it is best to proceed with I and D under anesthesia. I explained the technique of this procedure. I reviewed the risks icnlduing but not limited to bleeding, infections, respiratory failure, RI, as well as the benefits and alternatives. His INR is 1.7. Time Spent With Patient Time: Total time managing care of this patient today ____ minutes. Procedures Date of Service Date of Service: 05/24/23
--- NOTE | 2023-05-20 09:57 | PM.IMHP ---
History of Present Illness Date of Service: 05/20/23 Chief Complaint: leg abscess / pain / drainage This is a 68 year old male with a PMH of morbid besity, chronic bilateral LE lymphedema, COPD, PVD, HCV, opiate dependence on methadone, HTN, PE/DVT who presented to [facility] (after being directed to do so by his PCP the day before) for complaints of RLE (thigh) swelling, induration, pain and drainage. The patient reports chronic superficial infections of the skin in the LE. He reports he noticed his R thigh region swelling about 2 weeks ago. The size has significantly progressed since then. He reports drainage and severe pain. He reports he was seen by his doctors as an outpatient yesterday and advised to come to the ED for further evaluation and treatment. He reports fevers and chills at home. In the ED, the patient's work up showed a large abscess (over 16cm) in the R lateral thigh. He had cultures drawn, was given IV antibiotics, IVF and IV analgesics. General surgery consult was placed and the patient will be admitted for IV antibiotics and likey I&D in the OR under general anesthesia. Review of Systems Review of Systems: negative except HPI [facility] Medical History Cellulitis Chronic back pain Chronic venous stasis dermatitis of both lower extremities DVT (deep venous thrombosis) Hepatitis C Hyperlipidemia Hypertensive cardiovascular disease Morbid obesity due to excess calories Narcotic addiction Obesity hypoventilation syndrome Osteoarthritis Pulmonary embolism Sleep apnea Venous ulcer of right leg Surgical History History of arthroscopy of both knees History of repair of cleft lip Social History Household Members: Other Housing: Apartment Do you presently have visiting nurse or other home services: Yes Patient Tobacco Use Status: Current everyday Tobacco user Tobacco use type: Cigarette Cigarette Packs Per Day: 1 Cigarettes Per Day: 20.0 Years Smoked: 30 Smoked in Last 30 Days: Yes e-Cigarette/Vaping Use: Currently Using Second Hand Smoke Exposure: No Use of substances other than those prescribed or required for medical reasons: No Substance Use Type: Marijuana Advance Directives: No Advance Directives Information Provided: No service: No Current occupational status: disabled Meds Allergies Allergy/AdvReac Type Severity Reaction Status Date / Time ibuprofen Allergy Unknown HIVES/STOMACHE Verified 03/17/23 10:10 UPSET Penicillins Allergy Unknown COMA Verified 03/17/23 10:10 tramadol Allergy Unknown Verified 03/17/23 10:10 Active Medications: Current Medications Pharmacy Consult (Consult Rx Perform Med Rec) 1 each MISCELLANE ONCE PRN PRN Reason: Consult order Home Medications Medication Instructions Recorded Confirmed Last Taken Type ascorbic acid (vitamin C) 500 mg 1 tab PO BID 10/07/21 05/20/23 05/19/23 History tablet (Vitamin C) furosemide 20 mg tablet 1 tab PO BID 10/07/21 05/20/23 05/19/23 History lisinopril 40 mg tablet 1 tab PO DAILY 10/07/21 05/20/23 05/19/23 History methadone 10 mg/5 mL oral solution 135 mg PO DAILY 10/07/21 03/18/23 03/17/23 History rosuvastatin 10 mg tablet 1 tab PO DAILY 10/07/21 05/20/23 05/19/23 History sennosides 8.6 mg-docusate sodium 1 tab PO BID 10/07/21 05/20/23 05/19/23 History 50 mg tablet (Stool Softener-Stimulant Laxative) vitamin B complex-folic acid ER 1 tab PO DAILY 10/07/21 05/20/23 05/19/23 History 400 mcg tablet,extended release (Complex B-100) warfarin 3 mg tablet 6 mg PO SUTUWETHFRSA@1800 10/07/21 05/20/23 05/19/23 History cholecalciferol (vitamin D3) 50 50 mcg PO DAILY 03/17/23 05/20/23 05/19/23 History mcg (2,000 unit) tablet omega 3-uow-slu-fish oil 1,000 mg 1 cap PO DAILY 03/17/23 05/20/23 05/19/23 History (120 mg-180 mg) capsule fluticasone 250 mcg-salmeterol 50 1 ea inhalation BID 05/20/23 05/20/23 05/19/23 History mcg/dose blistr powdr for inhalation (Wixela Inhub) verapamil 120 mg 24 hr 120 mg PO DAILY 05/20/23 05/20/23 05/19/23 History capsule,extended release warfarin 3 mg tablet 4.5 mg PO MO@1800 05/20/23 05/20/23 05/16/23 History Physical Exam Vital Signs and Narrative: Vital Signs: Last Vital Signs Temp 98.5 F 05/20/23 05:58 Pulse 86 05/20/23 05:58 Resp 14 05/20/23 05:58 BP 106/54 L 05/20/23 05:58 Pulse Ox 93 05/20/23 05:58 O2 Del Method Room Air 05/20/23 05:58 BMI result Body Mass Index 35.9 Const: Other: Constitutional - Awake and Alert, No apparent distress Eyes - PERRLA, EOMI Cardiovascular - S1S2, RRR, No edema Respiratory - Normal lung expansion, Normal respiratory effort, No respiratory distress, CTA bilaterally Gastrointestinal - NT / ND; +BS; No rebound or guarding - No CVA tenderness Extremities - b/l LE swelling with signs of chronic venous statsis/lymphedema Musculoskeletal - Normal inspection, normal ROM Skin - large area on the lateral thigh, indurated with erythema, small opening with purulent drainage Neurological - Alert & oriented x3, No focal deficit Psychological - Appropriate affect Results Labs 05/20/23 06:12 05/20/23 06:12 Labs: Laboratory Results - last 24 hr 05/20/23 05/20/23 05/20/23 06:12 06:12 06:12 MCV 95.0 MCH 31.2 MCHC 32.9 RDW 14.7 Plt Count 270 MPV 9.3 L Absolute Nucleated RBC 0.000 Nucleated RBC % (auto) 0.0 ESR PT INR Anion Gap 14 Estim Creat Clear Calc 75.7 Estimated GFR 60 Random Glucose 94 Lactic Acid Calcium 9.5 D Total Bilirubin 0.4 AST 15 ALT 5 Alkaline Phosphatase 53 Total Creatine Kinase C-Reactive Protein B-Natriuretic Peptide 37 Total Protein 7.2 Albumin 3.3 L 05/20/23 05/20/23 05/20/23 07:22 07:22 07:22 MCV MCH MCHC RDW Plt Count MPV Absolute Nucleated RBC Nucleated RBC % (auto) ESR 104 H PT INR Anion Gap Estim Creat Clear Calc Estimated GFR Random Glucose Lactic Acid 0.6 Calcium Total Bilirubin AST ALT Alkaline Phosphatase Total Creatine Kinase 30 L C-Reactive Protein 7.14 H B-Natriuretic Peptide Total Protein Albumin 05/20/23 08:12 MCV MCH MCHC RDW Plt Count MPV Absolute Nucleated RBC Nucleated RBC % (auto) ESR PT 20.5 H INR 1.7 H Anion Gap Estim Creat Clear Calc Estimated GFR Random Glucose Lactic Acid Calcium Total Bilirubin AST ALT Alkaline Phosphatase Total Creatine Kinase C-Reactive Protein B-Natriuretic Peptide Total Protein Albumin Imaging Radiologist's Impressions: Impressions Femur CT 05/20/23 07:57 IMPRESSION: 1. Lateral thigh skin thickening with a focal area of hypodensity within the skin measuring up to 1.6 cm which could represent a blister versus focal ulceration. Prominent underlying subcutaneous stranding consistent with acute cellulitis. Underlying abscess along the periphery of the fascial plane measuring up to 16.2 cm in craniocaudal dimension. 2. No adjacent periosteal reaction or cortical erosion to suggest acute osteomyelitis. 3. Mild right hip osteoarthritis. Assessment and Plan (1) Abscess of right thigh: Status: Acute (2) Cellulitis of right thigh: Status: Acute Plan This is a 68 year old male with a PMH of morbid besity, chronic bilateral LE lymphedema, COPD, PVD, HCV, opiate dependence on methadone, HTN, PE/DVT who is admitted for a large abscess of his lateral thigh. 1. Cellulitis and large R lateral thigh abscess, lymphedema bilateral LE Given IV rocephin and vancomcyin in the ED will continue IV vancomcyin, follow up cultures General surgery consult -- anticipate I&D in the operative room; will keep NPO for now 2. Chronic opiate dependence methadone once dose verified 3. COPD not in exacerbaiton continue baseline meds, monitor post-op 4. Hx of PE/DVT, recurrent restart coumadin (may need bridge) after surgical procedures completed 5. Bilateral LE lyphedema likely playing a role in #1 6. Morbid obesity weight loss / exercise program 7. HLD statin Full Code DVT pptx -- coumadin once surgical procedures completed. Given the size of his abscess and his underlying lymphedema + history of VTE, I anticipate the patient will require an inpatient hospitalization which is likely to span at least 2 midnights. Med Rec pending, will resume home meds as appropriate once completed. Time Spent With Patient Time: Total time managing care of this patient today ____ minutes. Quality Stroke Does the patient have a stroke diagnosis?: No VTE Prior VTE?: Yes VTE Risk Level:: Medical - moderate - high VTE Device Contraindication: Procedure Contraindicated VTE Drug Contraindication: N/A - Med Ordered
--- NOTE | 2023-05-20 10:11 | PHA.MEDREC ---
Pharmacy Consult ? Medication Reconciliation Pharmacy has completed the medication reconciliation. Spoke to patient to confirm meds. Patient states they are on methadone 135mg daily and get their methadone at [facility]. RN will need to verify dose.
--- NOTE | 2023-05-20 11:39 | P.CONAN_ITS ---
HPI - Anesthesia Eval Consult details Narrative: for I&D right thigh PMFSH Active Problems Active Problems: All Active Problems (Updated 05/20/23 @ 09:02 by FAROOQ Lau) Cellulitis of right thigh (Acute) Abscess of right thigh (Acute) Physical deconditioning (Acute) Scrotal edema (Acute) S/P right inguinal hernia repair (Acute) Acute and chronic respiratory failure (Acute) Hyperlipidemia (Acute) Hypertensive cardiovascular disease (Acute) Asthma (Acute) Obesity hypoventilation syndrome (Acute) Narcotic addiction (Acute) Past Medical History Medical History Cellulitis Chronic back pain Chronic venous stasis dermatitis of both lower extremities DVT (deep venous thrombosis) Hepatitis C Hyperlipidemia Hypertensive cardiovascular disease Morbid obesity due to excess calories Narcotic addiction Obesity hypoventilation syndrome Osteoarthritis Pulmonary embolism Sleep apnea Venous ulcer of right leg Family History Family history of problems with anesthesia: No Surgical History Surgical History History of arthroscopy of both knees History of repair of cleft lip History of Problems with Anesthesia: No Social History Social History Household Members: Other Housing: Apartment Do you presently have visiting nurse or other home services: Yes Patient Tobacco Use Status: Never used Tobacco Tobacco use type: Cigarette Cigarette Packs Per Day: 1 Cigarettes Per Day: 20.0 Years Smoked: 30 Smoked in Last 30 Days: Yes e-Cigarette/Vaping Use: Currently Using Second Hand Smoke Exposure: No Use of substances other than those prescribed or required for medical reasons: No Substance Use Type: Marijuana Advance Directives: No Advance Directives Information Provided: No service: No Current occupational status: disabled Meds Allergies Allergy/AdvReac Type Severity Reaction Status Date / Time ibuprofen Allergy Unknown HIVES/STOMACHE Verified 03/17/23 10:10 UPSET Penicillins Allergy Unknown COMA Verified 03/17/23 10:10 tramadol Allergy Unknown Verified 03/17/23 10:10 Active Medications: Current Medications Acetaminophen (Acetaminophen 325 Mg Tablet) 650 mg PO Q6H PRN PRN Reason: Pain, Mild (Pain Scale 1-3) Atorvastatin Calcium (Atorvastatin Calcium 40 Mg Tablet) 40 mg PO DAILY [facility] Fluticasone/Vilanterol (Fluticasone/Vilanterol 100/25 Blst.W.Dev) 1 puff INHALE RBID [facility] Furosemide (Furosemide 20 Mg Tablet) 20 mg PO BID [facility]; Protocol Ondansetron HCl (Ondansetron Hcl 4 Mg/2 Ml Vial) 4 mg IVPUSH Q8H PRN PRN Reason: Nausea and Vomiting Pharmacy Consult (Consult Rx Perform Med Rec) 1 each MISCELLANE ONCE PRN PRN Reason: Consult order Senna/Docusate Sodium (Sennosides/Docusate Sodium Tablet) 1 tab PO BID [facility] Sodium Chloride (0.9 % Sodium Chloride Flush 3 Ml Syringe) 3 ml IVFLUSH QSHIFT [facility] Home Medications Medication Instructions Recorded Confirmed Last Taken Type ascorbic acid (vitamin C) 500 mg 1 tab PO BID 10/07/21 05/20/23 05/19/23 History tablet (Vitamin C) furosemide 20 mg tablet 1 tab PO BID 10/07/21 05/20/23 05/19/23 History lisinopril 40 mg tablet 1 tab PO DAILY 10/07/21 05/20/23 05/19/23 History methadone 10 mg/5 mL oral solution 135 mg PO DAILY 10/07/21 03/18/23 03/17/23 History rosuvastatin 10 mg tablet 1 tab PO DAILY 10/07/21 05/20/23 05/19/23 History sennosides 8.6 mg-docusate sodium 1 tab PO BID 10/07/21 05/20/23 05/19/23 History 50 mg tablet (Stool Softener-Stimulant Laxative) vitamin B complex-folic acid ER 1 tab PO DAILY 10/07/21 05/20/23 05/19/23 History 400 mcg tablet,extended release (Complex B-100) warfarin 3 mg tablet 6 mg PO SUTUWETHFRSA@1800 10/07/21 05/20/23 05/19/23 History cholecalciferol (vitamin D3) 50 50 mcg PO DAILY 03/17/23 05/20/23 05/19/23 History mcg (2,000 unit) tablet omega 9-uhp-dxx-fish oil 1,000 mg 1 cap PO DAILY 03/17/23 05/20/23 05/19/23 History (120 mg-180 mg) capsule fluticasone 250 mcg-salmeterol 50 1 ea inhalation BID 05/20/23 05/20/23 05/19/23 History mcg/dose blistr powdr for inhalation (Wixela Inhub) verapamil 120 mg 24 hr 120 mg PO DAILY 05/20/23 05/20/23 05/19/23 History capsule,extended release warfarin 3 mg tablet 4.5 mg PO MO@1800 05/20/23 05/20/23 05/16/23 History Exam Exam Date and Time: May 20, 2023 1139 Height,Weight and Vital Signs: Height 5 ft 10 in Weight 113.398 kg Last Vital Signs Temp 97.9 F 05/20/23 11:16 Pulse 86 05/20/23 11:16 Resp 19 05/20/23 11:16 BP 115/78 05/20/23 11:16 Pulse Ox 96 05/20/23 11:16 O2 Del Method Room Air 05/20/23 11:16 Pertinent Lab Results Pertinent Lab Results: Laboratory Tests 05/20/23 05/20/23 05/20/23 06:12 06:12 06:12 WBC 5.7 RBC 2.98 L Hgb 9.3 L Hct 28.3 L MCV 95.0 MCH 31.2 MCHC 32.9 RDW 14.7 Plt Count 270 MPV 9.3 L Absolute Nucleated RBC 0.000 Nucleated RBC % (auto) 0.0 ESR PT INR Sodium 137 Potassium 4.3 Chloride 99 Carbon Dioxide 28 Anion Gap 14 BUN 22 H Creatinine 1.21 Estim Creat Clear Calc 75.7 Estimated GFR 60 Random Glucose 94 Lactic Acid Calcium 9.5 D Total Bilirubin 0.4 AST 15 ALT 5 Alkaline Phosphatase 53 Total Creatine Kinase C-Reactive Protein B-Natriuretic Peptide 37 Total Protein 7.2 Albumin 3.3 L 05/20/23 05/20/23 05/20/23 07:22 07:22 07:22 WBC RBC Hgb Hct MCV MCH MCHC RDW Plt Count MPV Absolute Nucleated RBC Nucleated RBC % (auto) ESR 104 H PT INR Sodium Potassium Chloride Carbon Dioxide Anion Gap BUN Creatinine Estim Creat Clear Calc Estimated GFR Random Glucose Lactic Acid 0.6 Calcium Total Bilirubin AST ALT Alkaline Phosphatase Total Creatine Kinase 30 L C-Reactive Protein 7.14 H B-Natriuretic Peptide Total Protein Albumin 05/20/23 08:12 WBC RBC Hgb Hct MCV MCH MCHC RDW Plt Count MPV Absolute Nucleated RBC Nucleated RBC % (auto) ESR PT 20.5 H INR 1.7 H Sodium Potassium Chloride Carbon Dioxide Anion Gap BUN Creatinine Estim Creat Clear Calc Estimated GFR Random Glucose Lactic Acid Calcium Total Bilirubin AST ALT Alkaline Phosphatase Total Creatine Kinase C-Reactive Protein B-Natriuretic Peptide Total Protein Albumin Airway Mallampati Class: II TM Dist: <=3cm Neck ROM: Full Denture: Upper and Lower Heart: ok Lungs: As above. OHS. Assessment and Plan Assessment Anesthesia Assessment: Anesthesia Plan Discussed and Chart Reviewed Final Anesthetic Review Family History of Problems with Anesthesia: No History of Problems with Anesthesia: No NPO: Yes ASA Class: IV and Emergency Final Preanesthetic Review: No Changes in Pt Med Stat, Meds/Allgs Chart Reviewed, Consent Obtained/Reviewed and Anes Risks/Benef Reviewed Patient Risk: High Procedure Risk: Low Anesthetic Plan Anesthetic Plan: MAC: and Agree w/ Assess. and Plan Disposition: Standard PACU
--- NOTE | 2023-05-20 12:34 | W.PM.OPN ---
Operative Note Operative Note Date of Service: 05/20/23 Narrative: Preop diagnosis: Right thigh abscess Postop diagnosis: Right thigh abscess, deep subcutaneous Procedure: Incision drainage of deep right thigh abscess Surgeon: Olaf Colindres MD The patient is a 68-year-old male, who was sent to the ER because of right thigh is swelling, pain and tenderness with some drainage. A CAT scan was done and was note of what appeared to be an abscess on the lateral aspect of the right thigh and the deep subcutaneous area, about 16 cm on the craniocaudad dimension. I therefore explained to him it would be best to proceed with I&D because of the abscess. He understood the technique of I&D under anesthesia and was aware of the risks, benefits, and alternatives and had given consent He was brought to the operating room. He was placed supine under anesthesia care. the duration was seen on the right lateral thigh, about 15 cm long with note of significant thickening of the skin. a surgical time-out was done. I infiltrated my planned line of incision with lidocaine 1%. I made a generous state incision on the most fluctuant area using blade 15. And this was carried down through the full-thickness of the skin subcutaneous fat. He had a thick amount of indurated subcutaneous fat and then I was able to enter the abscess cavity. Large amounts of thinly purulent fluid was drained. Cultures were taken. There was note of a lot of oozing on the area in the subcutaneous layer as well as in the abscess cavity itself likely secondary to slightly elevated INR due to anticoagulation with Coumadin.. I had to do a lot of Of cauterization on all these row oozing areas. Eventually, as able to achieve hemostasis. I irrigated. I then applied Iodoform packing into the large abscess cavity. I applied thick dressings. The procedure was completed The patient tolerated procedure well. There were no immediate complications. Initial and final counts of sponges and instruments were correct. Estimated blood loss was about 100 cc. The patient was awakened completely and transferred to the recovery room with stable vital signs
[2023-05-20] MEDS: HYDROmorphone HCl 0.5 MG/0.5 ML SYRINGE IVPUSH ×2 (13:15→13:31)
--- NOTE | 2023-05-20 13:39 | PC.NURSE ---
called [facility] to verify methadone this morning, faxed them concent for information form, have been awaiting callback with methadone dose.
--- NOTE | 2023-05-20 14:07 | PM.EVENT ---
Event Note Date of Service: 05/20/23 Event Note: seen postop underwent I and D of right thigh deep abscess earlier doing well dressings dry INR was 1.7 would hold off on anti coagulation for now has packing in place - would withdraw gradually pain management check on cultures Time Spent With Patient Time: Total time managing care of this patient today ____ minutes.
--- NOTE | 2023-05-20 16:16 | PHA.PROG ---
Admission Date/Time: May 20, 2023 09:55 Indication: skin Weight in k.5 kg Adjusted body weight in Kg: Rock body weight in Kg: Obesity Dosing Indication % IBW: Serum Creatinine - Last 168 Hours 05/20/23 06:12 Creatinine 1.21 Estimated CrCl and GFR - Last 168 Hours 05/20/23 06:12 Estim Creat Clear Calc 75.7 Estimated GFR 60 Vancomycin Loading Dose: 2000mg x 1 Current Vancomycin Dosing Regimen: 750mg Q12H Vancomycin Monitoring using AUC goal of 400 - 600 range with trough as surrogate marker: 494mg/L Date and Time for next Vancomycin Level to be drawn: 05/21/23 @1900 Pharmacist Comments on Vancomycin Plan: Obese model being utilized, predicted trough of 15.6mg/L. Will continue to monitor renal function Vancomycin dosing will take advantage of [employer] as a clinical decision support tool that uses Bayesian modeling to calculate individual patient's pharmacokinetic parameters and forecast the patient's drug concentration time course with the target goal AUC 24 range of 400 - 600 mg/L/hr.
[2023-05-20] MEDS: 0.9 % Sodium Chloride Flush 3 ML SYRINGE IVFLUSH ×2 (16:49→23:31)
[2023-05-20] MEDS: Nicotine 21 MG PATCH.TD24 TRANSDERMA (16:49)
--- NOTE | 2023-05-20 19:16 | PC.NURSE ---
1915 called [facility] for verification of methadone. Highway Worker will call back.
[2023-05-20] MEDS: oxyCODONE HCl Immed Release 5 MG TABLET 10 MG PO (21:14)
[2023-05-20] MEDS: Sennosides/Docusate Sodium TABLET 1 TAB PO (21:14)
[2023-05-20] MEDS: Furosemide 20 MG TABLET PO (21:14)
[2023-05-20] MEDS: vancomycin HCL 750 MG in 0.9 % Sodium Chloride 250 ML 265 MG IV (21:15)
[2023-05-21] VITALS (7 sets, daily range): BP systolic 110–113; BP diastolic 56–63; PULSE 69–90; RESP 14–19; TEMP 36.1–36.5; O2SAT 93–96
[2023-05-21] MEDS: oxyCODONE HCl Immed Release 5 MG TABLET 10 MG PO ×2 (05:29→21:49)
[2023-05-21 06:31] LABS: Hematocrit 26.8 % (42.0-52.0); Hemoglobin 8.6 g/dl (14.0-18.0); Mean Corpuscular HGB Conc 32.1 g/dl (31.0-36.0); Mean Corpuscular Hemoglobin 30.7 pg (27.0-33.0); Mean Corpuscular Volume 95.7 fL (80.0-98.0); Mean Platelet Volume 9.2 fL (9.4-12.4); Platelet Count 244 X10*3/uL (160-400); Red Cell Distribution Width 14.7 % (11.0-16.0); White Blood Count 5.7 X10*3/uL (4.8-10.8)
[2023-05-21 06:41] LABS: Anion Gap 12 (12-20); Blood Urea Nitrogen 14 mg/dL (9-16); Calcium 9.2 mg/dL (8.4-10.2); Carbon Dioxide 28 mmol/L (22-29); Chloride 101 mmol/L (96-108); Creatinine Clr Calc Pharmacy 108.5; Estimated Glomerular Filt Rate > 60; Glucose Random 87 mg/dL (60-115); Potassium 4.2 mmol/L (3.3-5.1); Sodium 137 mmol/L (135-145)
--- NOTE | 2023-05-21 07:28 | HO.PM.IMPN ---
Subjective Subjective Date of Service: 05/21/23 Interval History: f/u tigh abscess, cellulitis s/p I&D yesterday feels better, no fever Physical Exam Vital Signs: Vital Signs: Last Vital Signs Temp 97 F 05/21/23 07:21 Pulse 88 05/21/23 07:21 Resp 19 05/21/23 07:21 BP 113/56 L 05/21/23 07:21 Pulse Ox 94 05/21/23 07:21 O2 Del Method Room Air 05/21/23 07:21 O2 Flow Rate 2 05/20/23 16:00 BMI result Body Mass Index 39.7 Const: Other: Constitutional - Awake and Alert, No apparent distress Eyes -? PERRLA, EOMI Cardiovascular -? S1S2, RRR, No edema Respiratory - Normal lung expansion, Normal respiratory effort, No respiratory distress, CTA bilaterally Gastrointestinal -? NT / ND; +BS; No rebound or guarding - No CVA tenderness Extremities - b/l LE swelling with signs of chronic venous statsis/lymphedema Musculoskeletal - Normal inspection, normal ROM Skin - area of right tigh I&D's dressing in place Neurological -? Alert & oriented x3, No focal deficit Psychological - Appropriate affect Objective Data Active Medications Acetaminophen (Acetaminophen 325 Mg Tablet) 650 mg PO Q6H PRN PRN Reason: Pain, Mild (Pain Scale 1-3) Atorvastatin Calcium (Atorvastatin Calcium 40 Mg Tablet) 40 mg PO DAILY [facility] Fentanyl (Fentanyl Citrate/Pf 100 Mcg/2 Ml Vial) 50 mcg IVPUSH Q5M PRN; Protocol PRN Reason: Pain, Severe (Pain Scale 7-10) Fluticasone/Vilanterol (Fluticasone/Vilanterol 100/25 Blst.W.Dev) 1 puff INHALE RBID [facility] Last Admin: 05/20/23 21:15 Dose: Not Given Documented By: KAITLYN Non-Admin Reason: Patient Refused Furosemide (Furosemide 20 Mg Tablet) 20 mg PO BID [facility]; Protocol Last Admin: 05/20/23 21:14 Dose: 20 mg Documented By: KAITLYN Hydromorphone HCl (Hydromorphone Hcl 0.5 Mg/0.5 Ml Syringe) 0.5 mg IVPUSH Q5M PRN; Protocol PRN Reason: Pain, Severe (Pain Scale 7-10) Last Admin: 05/20/23 13:31 Dose: 0.5 mg Documented By: TOÑA Vancomycin HCl 750 mg/ Sodium (Chloride) 265 mls @ 265 mls/hr IV Q12H [facility] Last Infusion: 05/20/23 22:54 Dose: 0 mls/hr Documented By: KAITLYN Morphine Sulfate (Morphine Sulfate 4 Mg/Ml Cartridge) 3 mg IVPUSH Q3H PRN; Protocol PRN Reason: Pain, Severe (Pain Scale 7-10) Nicotine (Nicotine 21 Mg Patch.Td24) 21 mg TRANSDERMA DAILY [facility] Last Admin: 05/20/23 16:49 Dose: 21 mg Documented By: KAITLYN Ondansetron HCl (Ondansetron Hcl 4 Mg/2 Ml Vial) 4 mg IVPUSH Q8H PRN PRN Reason: Nausea and Vomiting Ondansetron HCl (Ondansetron Hcl 4 Mg/2 Ml Vial) 4 mg IVPUSH ONCE PRN PRN Reason: Nausea and Vomiting Oxycodone HCl (Oxycodone Hcl Immed Release 5 Mg Tablet) 10 mg PO Q6H PRN PRN Reason: Pain, Moderate(Pain Scale 4-6) Last Admin: 05/21/23 05:29 Dose: 10 mg Documented By: CHAR Pharmacy Consult (Consult Rx Perform Med Rec) 1 each MISCELLANE ONCE PRN PRN Reason: Consult order Pharmacy Consult (Consult Rx Vancomycin Dosing) 1 each MISCELLANE DAILY PRN PRN Reason: Consult order Senna/Docusate Sodium (Sennosides/Docusate Sodium Tablet) 1 tab PO BID [facility] Last Admin: 05/20/23 21:14 Dose: 1 tab Documented By: KAITLYN Sodium Chloride (0.9 % Sodium Chloride Flush 3 Ml Syringe) 3 ml IVFLUSH QSHIFT [facility] Last Admin: 05/20/23 23:31 Dose: 3 ml Documented By: CHAR Labs 05/21/23 05:44 05/21/23 05:44 Labs: Laboratory Results - last 24 hr 05/20/23 05/20/23 05/20/23 06:12 07:22 07:22 MCV MCH MCHC RDW Plt Count MPV Absolute Nucleated RBC Nucleated RBC % (auto) ESR PT INR Anion Gap Estim Creat Clear Calc Estimated GFR Random Glucose Lactic Acid 0.6 Calcium Total Creatine Kinase 30 L C-Reactive Protein 7.14 H B-Natriuretic Peptide 37 05/20/23 05/20/23 05/21/23 07:22 08:12 05:44 MCV 95.7 MCH 30.7 MCHC 32.1 RDW 14.7 Plt Count 244 MPV 9.2 L Absolute Nucleated RBC 0.000 Nucleated RBC % (auto) 0.0 ESR 104 H PT 20.5 H INR 1.7 H Anion Gap Estim Creat Clear Calc Estimated GFR Random Glucose Lactic Acid Calcium Total Creatine Kinase C-Reactive Protein B-Natriuretic Peptide 05/21/23 05:44 MCV MCH MCHC RDW Plt Count MPV Absolute Nucleated RBC Nucleated RBC % (auto) ESR PT INR Anion Gap 12 Estim Creat Clear Calc 108.5 Estimated GFR > 60 Random Glucose 87 Lactic Acid Calcium 9.2 Total Creatine Kinase C-Reactive Protein B-Natriuretic Peptide Microbiology Microbiology Results: Microbiology 05/20/23 Unknown Gram Stain - Final Thigh Right Assessment and Plan (1) Cellulitis of right thigh: Status: Acute (2) Abscess of right thigh: Status: Acute Plan 68 year old male with a PMH of morbid besity, chronic bilateral LE lymphedema, COPD, PVD, HCV, opiate dependence on methadone, HTN, PE/DVT who is admitted for a large abscess of his lateral thigh. 1. Cellulitis and large R lateral thigh abscess, lymphedema bilateral LE s/p I&D by Dr. Colindres 05/20 Given IV rocephin and vancomcyin in the ED will continue IV vancomcyin 05/20, follow up cultures Surgery following, when ok by surgery dc with Brenden 2. Chronic opiate dependence methadone once dose verified 3. COPD not in exacerbaiton continue baseline meds, monitor post-op 4. Hx of PE/DVT, recurrent chek INR today, restart coumadin 5. Bilateral LE lyphedema likely playing a role in #1 6. Morbid obesity weight loss / exercise program 7. HLD statin Full Code DVT pptx -- coumadin once surgical procedures completed. need for inpatient: IV Abx for large abscess that required I and D, and awaiting cultures Time Spent With Patient Time: Total time managing care of this patient today ____ minutes. Quality Stroke Does the patient have a stroke diagnosis?: No VTE Prior VTE?: Yes VTE Risk Level:: Medical - moderate - high VTE Device Contraindication: Procedure Contraindicated VTE Drug Contraindication: N/A - Med Ordered
[2023-05-21] MEDS: 0.9 % Sodium Chloride Flush 3 ML SYRINGE IVFLUSH ×3 (08:33→20:27)
[2023-05-21] MEDS: Sennosides/Docusate Sodium TABLET 1 TAB PO ×2 (08:33→20:36)
[2023-05-21] MEDS: Nicotine 21 MG PATCH.TD24 TRANSDERMA (08:33)
[2023-05-21] MEDS: Atorvastatin Calcium 40 MG TABLET PO (08:33)
[2023-05-21] MEDS: Furosemide 20 MG TABLET PO ×2 (08:33→20:27)
[2023-05-21] MEDS: vancomycin HCL 750 MG in 0.9 % Sodium Chloride 250 ML 265 MG IV (08:33)
--- NOTE | 2023-05-21 09:28 | HE.PHANOTE ---
METHADONE VERIFICATION OF 135 MG [facility] 05/19/23
[2023-05-21] MEDS: methADONE HCl 20 MG/2 ML ORAL.CONC 135 MG PO (10:20)
--- NOTE | 2023-05-21 10:24 | HO.POSTANES ---
Post Anesthesia Evaluation Post Anesthesia Evaluation Date of Service: 05/20/23 Vital Signs: Vital Signs Temp Pulse Resp BP Pulse Ox O2 Del Method 05/21/23 07:21 97 F 88 19 113/56 L 94 Room Air 05/21/23 04:00 97.0 F 90 16 112/60 93 Room Air Anesthesia: Monitored Mental Status: Awake Pain Control: Satisfactory Nausea/Vomiting: None Hydration: Adequate Anesthesia-Related Issues: No Anes. Related Issues
[2023-05-21] MEDS: Morphine Sulfate 4 MG/ML CARTRIDGE 3 MG IVPUSH (15:36)
--- NOTE | 2023-05-21 17:07 | P.PNGS_ITS ---
Subjective Subjective Date of Service: 05/21/23 Interval history: feeling well no issues Physical Exam Vital Signs: Vital Signs: Last Vital Signs Temp 97.3 F 05/21/23 15:42 Pulse 76 05/21/23 15:42 Resp 16 05/21/23 15:42 BP 111/63 05/21/23 15:42 Pulse Ox 93 05/21/23 15:42 O2 Del Method Room Air 05/21/23 15:42 O2 Flow Rate 2 05/20/23 16:00 BMI result Body Mass Index 39.7 Skin: Other: right leg dressing removed and packing pulled back a little - bloody drainage, little tender, surrounding skin looks good. Objective Data Active Medications Acetaminophen (Acetaminophen 325 Mg Tablet) 650 mg PO Q6H PRN PRN Reason: Pain, Mild (Pain Scale 1-3) Atorvastatin Calcium (Atorvastatin Calcium 40 Mg Tablet) 40 mg PO DAILY [facility] Last Admin: 05/21/23 08:33 Dose: 40 mg Documented By: JESSI Fentanyl (Fentanyl Citrate/Pf 100 Mcg/2 Ml Vial) 50 mcg IVPUSH Q5M PRN; Protocol PRN Reason: Pain, Severe (Pain Scale 7-10) Fluticasone/Vilanterol (Fluticasone/Vilanterol 100/25 Blst.W.Dev) 1 puff INHALE RBID [facility] Last Admin: 05/21/23 08:57 Dose: Not Given Documented By: ROSALIA Non-Admin Reason: med unavailable. pepe- pharmacy aware Furosemide (Furosemide 20 Mg Tablet) 20 mg PO BID [facility]; Protocol Last Admin: 05/21/23 08:33 Dose: 20 mg Documented By: JESSI Hydromorphone HCl (Hydromorphone Hcl 0.5 Mg/0.5 Ml Syringe) 0.5 mg IVPUSH Q5M PRN; Protocol PRN Reason: Pain, Severe (Pain Scale 7-10) Last Admin: 05/20/23 13:31 Dose: 0.5 mg Documented By: TOÑA Vancomycin HCl 750 mg/ Sodium (Chloride) 265 mls @ 265 mls/hr IV Q12H [facility] Last Infusion: 05/21/23 11:02 Dose: 0 mls/hr Documented By: JESSI Methadone HCl (Methadone Hcl 20 Mg/2 Ml Oral.Conc) 135 mg PO DAILY [facility] Last Admin: 05/21/23 10:20 Dose: 135 mg Documented By: JESSI Morphine Sulfate (Morphine Sulfate 4 Mg/Ml Cartridge) 3 mg IVPUSH Q3H PRN; Protocol PRN Reason: Pain, Severe (Pain Scale 7-10) Nicotine (Nicotine 21 Mg Patch.Td24) 21 mg TRANSDERMA DAILY [facility] Last Admin: 05/21/23 08:33 Dose: 21 mg Documented By: JESSI Ondansetron HCl (Ondansetron Hcl 4 Mg/2 Ml Vial) 4 mg IVPUSH Q8H PRN PRN Reason: Nausea and Vomiting Ondansetron HCl (Ondansetron Hcl 4 Mg/2 Ml Vial) 4 mg IVPUSH ONCE PRN PRN Reason: Nausea and Vomiting Oxycodone HCl (Oxycodone Hcl Immed Release 5 Mg Tablet) 10 mg PO Q6H PRN PRN Reason: Pain, Moderate(Pain Scale 4-6) Last Admin: 05/21/23 05:29 Dose: 10 mg Documented By: CHAR Pharmacy Consult (Consult Rx Perform Med Rec) 1 each MISCELLANE ONCE PRN PRN Reason: Consult order Pharmacy Consult (Consult Rx Vancomycin Dosing) 1 each MISCELLANE DAILY PRN PRN Reason: Consult order Senna/Docusate Sodium (Sennosides/Docusate Sodium Tablet) 1 tab PO BID [facility] Last Admin: 05/21/23 08:33 Dose: 1 tab Documented By: JESSI Sodium Chloride (0.9 % Sodium Chloride Flush 3 Ml Syringe) 3 ml IVFLUSH QSHIFT [facility] Last Admin: 05/21/23 15:32 Dose: 3 ml Documented By: JESSI Labs 05/21/23 05:44 05/21/23 05:44 Labs: Laboratory Results - last 24 hr 05/21/23 05/21/23 05:44 05:44 MCV 95.7 MCH 30.7 MCHC 32.1 RDW 14.7 Plt Count 244 MPV 9.2 L Absolute Nucleated RBC 0.000 Nucleated RBC % (auto) 0.0 Anion Gap 12 Estim Creat Clear Calc 108.5 Estimated GFR > 60 Random Glucose 87 Calcium 9.2 Microbiology Microbiology Results: Microbiology 05/20/23 Unknown Gram Stain - Final Thigh Right Routine Culture - Preliminary Culture in progress. 05/20/23 07:22 Blood Culture - Preliminary Blood - Venous No growth after 24 hours. 05/20/23 07:22 Blood Culture - Preliminary Blood - Venous No growth after 24 hours. Procedures Date of Service Date of Service: 05/21/23 Progress Note: A&P Assessment and plan (1) Abscess of right thigh: Status: Acute Assessment and Plan: sp right thigh i and d of abscess - looks good - cont with packing and pulling and iv antibx'fu on cultures ambulate in han with assist. Time Spent With Patient Time: Total time managing care of this patient today ____ minutes. Quality Stroke Does the patient have a stroke diagnosis?: No VTE Prior VTE?: Yes VTE Risk Level:: Medical - moderate - high VTE Device Contraindication: Procedure Contraindicated VTE Drug Contraindication: N/A - Med Ordered
[2023-05-21] MEDS: Fluticasone/Vilanterol 100/25 BLST.W.DEV 1 PUFF INHALE (19:37)
[2023-05-21 19:49] LABS: Vancomycin Trough 13.1 mcg/mL (10.0-20.0)
--- NOTE | 2023-05-21 19:57 | HE.PHANOTE ---
V dosing Level 13.1 today. While trough is currently therapeutic, AUC is not therapeutic. Trough is predicted to decrease. Will increase dose to vancomycin 1000 mg Q12H. New expected AUC 479 with a trough of 13.7. Next level 05/22 @ 1900. Simone YaoD
[2023-05-21] MEDS: vancomycin HCL 1,000 MG in 0.9 % Sodium Chloride 250 ML 270 MG IV (20:26)
[2023-05-22] VITALS (8 sets, daily range): BP systolic 95–118; BP diastolic 53–57; PULSE 73–82; RESP 16–18; TEMP 36.1–36.9; O2SAT 92–96
[2023-05-22] MEDS: Morphine Sulfate 4 MG/ML CARTRIDGE 3 MG IVPUSH ×4 (02:07→21:49)
[2023-05-22 06:46] LABS: Creatinine Clr Calc Pharmacy 101.6; Estimated Glomerular Filt Rate > 60
[2023-05-22 08:25] LABS: Mean Corpuscular HGB Conc 32.3 g/dl (31.0-36.0)
[2023-05-22] MEDS: Fluticasone/Vilanterol 100/25 BLST.W.DEV 1 PUFF INHALE ×2 (08:25→19:57)
[2023-05-22] MEDS: Sennosides/Docusate Sodium TABLET 1 TAB PO ×2 (08:29→20:30)
[2023-05-22] MEDS: Atorvastatin Calcium 40 MG TABLET PO (08:29)
[2023-05-22] MEDS: methADONE HCl 20 MG/2 ML ORAL.CONC 135 MG PO (08:30)
[2023-05-22] MEDS: 0.9 % Sodium Chloride Flush 3 ML SYRINGE IVFLUSH ×3 (08:30→23:19)
[2023-05-22] MEDS: vancomycin HCL 1,000 MG in 0.9 % Sodium Chloride 250 ML 270 MG IV ×2 (08:30→20:30)
[2023-05-22] MEDS: Nicotine 21 MG PATCH.TD24 TRANSDERMA (08:30)
[2023-05-22] MEDS: Furosemide 20 MG TABLET PO (08:30)
[2023-05-22 08:40] LABS: INTERNATIONAL NORM RATIO 1.4 (0.9-1.1)
[2023-05-22 08:45] LABS: White Blood Count 5.3 X10*3/uL (4.8-10.8)
[2023-05-22 08:46] LABS: Hematocrit 29.7 % (42.0-52.0); Hemoglobin 9.8 g/dl (14.0-18.0); Red Blood Count 3.18 X10*6/uL (4.60-5.80)
[2023-05-22 08:47] LABS: Mean Corpuscular Hemoglobin 30.8 pg (27.0-33.0); Mean Corpuscular Volume 93.4 fL (80.0-98.0); Mean Platelet Volume 8.8 fL (9.4-12.4); Platelet Count 256 X10*3/uL (160-400); Red Cell Distribution Width 14.6 % (11.0-16.0)
--- NOTE | 2023-05-22 09:56 | PC.NURSE ---
Pt deemed high fall risk, refusing chair/bed alarms and all other precautions.
--- NOTE | 2023-05-22 10:14 | MHC.CM.PN ---
Interview conducted w/Pt. Lives at home w/live-in [employer]. [employer] performs all in-home duties; cooking, cleaning, laundry, home making, as well as driving to and from appts for Pt. Pt also has [employer] [facility] 7 days/wk for medication distribution and wound care/bandage changes. All equipments needs are in place/apartment is completely handicapped accessible: apt on first floor, owns WC, RW, shower chair, urinal, bathroom rails, etc. Pt states a healthcare person went into his room and said he would be evaluated by Pt tomorrow for potential inpatient rehab/SNF needs, he states do not bother with this, he absolutely will not go to SNF. D/C plan is home/resumption of care via 30/05 [employer] and previously in place [facility]. CM to follow.
--- NOTE | 2023-05-22 10:19 | MHC.CM.PN ---
IMM reviewed w/Pt and copy given. CM to follow.
--- NOTE | 2023-05-22 13:41 | PC.NURSE ---
s/p I+D, per patient R thigh dressing fell off with the packing still intact, this nurse redressed wound with abd pad and kerlix and secured with tape, pt tolerated well, no other issues noted.
--- NOTE | 2023-05-22 16:18 | P.PNIM_ITS ---
Subjective Subjective Date of Service: 05/22/23 Interval History: seen and examined this morning follow up for thigh abscess no specific complaints feeling well does not want to go to rehab Review of Systems Review of Systems: Yes all other systems are reviewed and are negative Constitutional Constitutional: Denies chills and Denies fever(s) Cardiovascular Cardiovascular: Denies chest pain, Denies palpitations and Denies dyspnea Respiratory Respiratory: Denies cough and Denies dyspnea Gastrointestinal Gastrointestinal: Denies abdominal pain Endocrine Endocrine: Denies palpitations Physical Exam Vital Signs: Vital Signs: Last Vital Signs Temp 98.4 F 05/22/23 15:51 Pulse 78 05/22/23 15:51 Resp 16 05/22/23 15:51 BP 95/53 L 05/22/23 15:51 Pulse Ox 94 05/22/23 15:51 O2 Del Method Room Air 05/22/23 15:51 O2 Flow Rate 2 05/20/23 16:00 BMI result Body Mass Index 39.7 Const: General: cooperative, comfortable, alert and awake Nutritional Appearance: obese Orientation/consciousness: patient oriented x3 Resp: Effort & Inspection: normal respiratory effort, able to speak in complete sentences, no respiratory distress and no use of accessory muscles Cardio: Rate: regular rate Heart sounds: S1 normal heart sound present and S2 normal heart sound present GI: Inspection: No distended Palpation (GI): Soft to palpation and non tender Skin: Other: right thigh bandage c/d/i Neuro: General: patient oriented x3 and CN's II-XI intact bilaterally Extrem: Other: venous stasis changes Objective Data Active Medications Acetaminophen (Acetaminophen 325 Mg Tablet) 650 mg PO Q6H PRN PRN Reason: Pain, Mild (Pain Scale 1-3) Atorvastatin Calcium (Atorvastatin Calcium 40 Mg Tablet) 40 mg PO DAILY [facility] Last Admin: 05/22/23 08:29 Dose: 40 mg Documented By: JESSI Fentanyl (Fentanyl Citrate/Pf 100 Mcg/2 Ml Vial) 50 mcg IVPUSH Q5M PRN; Protocol PRN Reason: Pain, Severe (Pain Scale 7-10) Fluticasone/Vilanterol (Fluticasone/Vilanterol 100/25 Blst.W.Dev) 1 puff INHALE RBID [facility] Last Admin: 05/22/23 08:25 Dose: 1 puff Documented By: ARNALDO Furosemide (Furosemide 20 Mg Tablet) 20 mg PO BID [facility]; Protocol Last Admin: 05/22/23 08:30 Dose: 20 mg Documented By: JESSI Vancomycin HCl 1,000 mg/ (Sodium Chloride) 270 mls @ 270 mls/hr IV Q12H [facility] Last Infusion: 05/22/23 09:36 Dose: 0 mls/hr Documented By: JESSI Methadone HCl (Methadone Hcl 20 Mg/2 Ml Oral.Conc) 135 mg PO DAILY [facility] Last Admin: 05/22/23 08:30 Dose: 135 mg Documented By: JESSI Morphine Sulfate (Morphine Sulfate 4 Mg/Ml Cartridge) 3 mg IVPUSH Q3H PRN; Protocol PRN Reason: Pain, Severe (Pain Scale 7-10) Last Admin: 05/22/23 12:17 Dose: 3 mg Documented By: JESSI Nicotine (Nicotine 21 Mg Patch.Td24) 21 mg TRANSDERMA DAILY [facility] Last Admin: 05/22/23 08:30 Dose: 21 mg Documented By: JESSI Ondansetron HCl (Ondansetron Hcl 4 Mg/2 Ml Vial) 4 mg IVPUSH Q8H PRN PRN Reason: Nausea and Vomiting Ondansetron HCl (Ondansetron Hcl 4 Mg/2 Ml Vial) 4 mg IVPUSH ONCE PRN PRN Reason: Nausea and Vomiting Oxycodone HCl (Oxycodone Hcl Immed Release 5 Mg Tablet) 10 mg PO Q6H PRN PRN Reason: Pain, Moderate(Pain Scale 4-6) Last Admin: 05/21/23 21:49 Dose: 10 mg Documented By: CHASITY Pharmacy Consult (Consult Rx Perform Med Rec) 1 each MISCELLANE ONCE PRN PRN Reason: Consult order Pharmacy Consult (Consult Rx Vancomycin Dosing) 1 each MISCELLANE DAILY PRN PRN Reason: Consult order Senna/Docusate Sodium (Sennosides/Docusate Sodium Tablet) 1 tab PO BID [facility] Last Admin: 05/22/23 08:29 Dose: 1 tab Documented By: JESSI Sodium Chloride (0.9 % Sodium Chloride Flush 3 Ml Syringe) 3 ml IVFLUSH QSHIFT [facility] Last Admin: 05/22/23 15:39 Dose: 3 ml Documented By: JESSI Labs 05/22/23 08:19 05/22/23 05:33 Labs: Laboratory Results - last 24 hr 05/21/23 05/22/23 05/22/23 19:11 05:33 08:19 MCV 93.4 MCH 30.8 MCHC 32.3 RDW 14.6 Plt Count 256 MPV 8.8 L Absolute Nucleated RBC 0.000 Nucleated RBC % (auto) 0.0 PT INR Estim Creat Clear Calc 101.6 Estimated GFR > 60 Vancomycin Trough 13.1 05/22/23 08:19 MCV MCH MCHC RDW Plt Count MPV Absolute Nucleated RBC Nucleated RBC % (auto) PT 16.0 H INR 1.4 H Estim Creat Clear Calc Estimated GFR Vancomycin Trough Microbiology Microbiology Results: Microbiology 05/20/23 Unknown Gram Stain - Final Thigh Right Routine Culture - Preliminary Staphylococcus aureus Corynebacterium species 05/20/23 07:22 Blood Culture - Preliminary Blood - Venous No growth after 48 hours. 05/20/23 07:22 Blood Culture - Preliminary Blood - Venous No growth after 48 hours. Assessment and Plan (1) Abscess of right thigh: Status: Acute Plan 68 year old male with a PMH of morbid besity, chronic bilateral LE lymphedema, COPD, PVD, HCV, opiate dependence on methadone, HTN, PE/DVT who is admitted for a large abscess of his lateral thigh. Cellulitis and large R lateral thigh abscess, lymphedema bilateral LE s/p I&D by Dr. Colindres 05/20 Given IV rocephin and vancomcyin in the ED wound culture growing corynebacterium species and staph aureus - final sensitivities pending will continue IV vancomcyin 05/20 Surgery following, when ok by surgery dc with Doxy wound care per surgical team Chronic opiate dependence continue methadone COPD not in exacerbaiton continue baseline meds, monitor post-op Hx of PE/DVT, recurrent INR 1.4, will resume coumadin follow INR Bilateral LE lyphedema likely playing a role in #1 Morbid obesity weight loss / exercise program HLD statin HTN bp soft lisinopril, verapamil, lasix on hold resume as bp allows Full Code DVT pptx -- coumadin attending - dr. ewing need for inpatient: IV Abx for large abscess dispo - pt rec STR, consider re-eval Tuesday, pt prefers to return home if able Time Spent With Patient Time: Total time managing care of this patient today ____ minutes. Quality Stroke Does the patient have a stroke diagnosis?: No VTE Prior VTE?: Yes VTE Risk Level:: Medical - moderate - high VTE Device Contraindication: Procedure Contraindicated VTE Drug Contraindication: N/A - Med Ordered
--- NOTE | 2023-05-22 18:05 | PM.PNGS ---
Subjective Subjective Date of Service: 05/22/23 Interval history: doing well feels good Physical Exam Vital Signs: Vital Signs: Last Vital Signs Temp 98.4 F 05/22/23 15:51 Pulse 78 05/22/23 15:51 Resp 16 05/22/23 15:51 BP 95/53 L 05/22/23 15:51 Pulse Ox 94 05/22/23 15:51 O2 Del Method Room Air 05/22/23 15:51 O2 Flow Rate 2 05/20/23 16:00 BMI result Body Mass Index 39.7 Skin: Other: wound area looks good - still draining serous fluid not purulent packing pulled back some more. Objective Data Active Medications Acetaminophen (Acetaminophen 325 Mg Tablet) 650 mg PO Q6H PRN PRN Reason: Pain, Mild (Pain Scale 1-3) Atorvastatin Calcium (Atorvastatin Calcium 40 Mg Tablet) 40 mg PO DAILY [facility] Last Admin: 05/22/23 08:29 Dose: 40 mg Documented By: JESSI Fluticasone/Vilanterol (Fluticasone/Vilanterol 100/25 Blst.W.Dev) 1 puff INHALE RBID [facility] Last Admin: 05/22/23 08:25 Dose: 1 puff Documented By: ARNALDO Furosemide (Furosemide 20 Mg Tablet) 20 mg PO BID [facility]; Protocol Last Admin: 05/22/23 08:30 Dose: 20 mg Documented By: JESSI Vancomycin HCl 1,000 mg/ (Sodium Chloride) 270 mls @ 270 mls/hr IV Q12H [facility] Last Infusion: 05/22/23 09:36 Dose: 0 mls/hr Documented By: JESSI Methadone HCl (Methadone Hcl 20 Mg/2 Ml Oral.Conc) 135 mg PO DAILY [facility] Last Admin: 05/22/23 08:30 Dose: 135 mg Documented By: JESSI Morphine Sulfate (Morphine Sulfate 4 Mg/Ml Cartridge) 3 mg IVPUSH Q3H PRN; Protocol PRN Reason: Pain, Severe (Pain Scale 7-10) Last Admin: 05/22/23 17:51 Dose: 3 mg Documented By: JESSI Nicotine (Nicotine 21 Mg Patch.Td24) 21 mg TRANSDERMA DAILY [facility] Last Admin: 05/22/23 08:30 Dose: 21 mg Documented By: JESSI Ondansetron HCl (Ondansetron Hcl 4 Mg/2 Ml Vial) 4 mg IVPUSH Q8H PRN PRN Reason: Nausea and Vomiting Oxycodone HCl (Oxycodone Hcl Immed Release 5 Mg Tablet) 10 mg PO Q6H PRN PRN Reason: Pain, Moderate(Pain Scale 4-6) Last Admin: 05/21/23 21:49 Dose: 10 mg Documented By: CHASITY Pharmacy Consult (Consult Rx Perform Med Rec) 1 each MISCELLANE ONCE PRN PRN Reason: Consult order Pharmacy Consult (Consult Rx Vancomycin Dosing) 1 each MISCELLANE DAILY PRN PRN Reason: Consult order Senna/Docusate Sodium (Sennosides/Docusate Sodium Tablet) 1 tab PO BID [facility] Last Admin: 05/22/23 08:29 Dose: 1 tab Documented By: JESSI Sodium Chloride (0.9 % Sodium Chloride Flush 3 Ml Syringe) 3 ml IVFLUSH QSHIFT [facility] Last Admin: 05/22/23 15:39 Dose: 3 ml Documented By: JESSI Warfarin Sodium (Warfarin Sodium 6 Mg Tablet) 6 mg PO SUTUWETHFRSA@1800 [facility] Warfarin Sodium 2 mg/ Warfarin (Sodium 2.5 mg) 4.5 mg PO Mo@1800 [facility] Labs 05/22/23 08:19 05/22/23 05:33 Labs: Laboratory Results - last 24 hr 05/21/23 05/22/23 05/22/23 19:11 05:33 08:19 MCV 93.4 MCH 30.8 MCHC 32.3 RDW 14.6 Plt Count 256 MPV 8.8 L Absolute Nucleated RBC 0.000 Nucleated RBC % (auto) 0.0 PT INR Estim Creat Clear Calc 101.6 Estimated GFR > 60 Vancomycin Trough 13.1 05/22/23 08:19 MCV MCH MCHC RDW Plt Count MPV Absolute Nucleated RBC Nucleated RBC % (auto) PT 16.0 H INR 1.4 H Estim Creat Clear Calc Estimated GFR Vancomycin Trough Microbiology Microbiology Results: Microbiology 05/20/23 Unknown Gram Stain - Final Thigh Right Routine Culture - Preliminary Staphylococcus aureus Corynebacterium species 05/20/23 07:22 Blood Culture - Preliminary Blood - Venous No growth after 48 hours. 05/20/23 07:22 Blood Culture - Preliminary Blood - Venous No growth after 48 hours. Procedures Date of Service Date of Service: 05/22/23 Progress Note: A&P Assessment and plan (1) Abscess of right thigh: Status: Acute Assessment and Plan: s/p i and d of right thigh abscess doing well - cont with dressing and iv antibx. fu culture results. Time Spent With Patient Time: Total time managing care of this patient today ____ minutes. Quality Stroke Does the patient have a stroke diagnosis?: No VTE Prior VTE?: Yes VTE Risk Level:: Medical - moderate - high VTE Device Contraindication: Procedure Contraindicated VTE Drug Contraindication: N/A - Med Ordered
[2023-05-22] MEDS: Warfarin Sodium 6 MG TABLET PO (18:12)
[2023-05-22 20:00] LABS: Vancomycin Random 14.9 mcg/mL (15-20)
--- NOTE | 2023-05-22 20:05 | HE.PHANOTE ---
Vancomycin Dosing Level therapeutic at 14.9 today. Continue current regimen. next level 05/24 @ 0700. Simone RodD
[2023-05-23] MEDS: Morphine Sulfate 4 MG/ML CARTRIDGE 3 MG IVPUSH ×2 (01:52→09:20)
[2023-05-23 03:41] VITALS: BP 112/56; PULSE 76; RESP 17; TEMP 36.4; O2SAT 95
[2023-05-23 07:34] VITALS: BP 106/51; PULSE 78; RESP 18; TEMP 36.8; O2SAT 92
[2023-05-23 07:45] LABS: INTERNATIONAL NORM RATIO 1.3 (0.9-1.1); Prothrombin Time 15.1 SEC (10.0-13.1)
[2023-05-23 07:50] LABS: Creatinine Clr Calc Pharmacy 95.6; Estimated Glomerular Filt Rate > 60
--- NOTE | 2023-05-23 07:52 | HE.PHANOTE ---
RE: DARLENE Patient has level due tomorrow at 0700. Will continue with current dose of 1000 mg Q12H. Predicted AUC 533 mg/l/hr. Slight jump in Scr will continue to monitor
[2023-05-23] MEDS: Fluticasone/Vilanterol 100/25 BLST.W.DEV 1 PUFF INHALE (08:22)
[2023-05-23 08:24] VITALS: PULSE 82; RESP 20; O2SAT 94
[2023-05-23] MEDS: methADONE HCl 20 MG/2 ML ORAL.CONC 135 MG PO (09:19)
[2023-05-23 09:20] VITALS: RESP 19
[2023-05-23] MEDS: vancomycin HCL 1,000 MG in 0.9 % Sodium Chloride 250 ML 270 MG IV (09:20)
[2023-05-23] MEDS: Nicotine 21 MG PATCH.TD24 TRANSDERMA (09:20)
[2023-05-23] MEDS: 0.9 % Sodium Chloride Flush 3 ML SYRINGE IVFLUSH (09:21)
[2023-05-23] MEDS: Sennosides/Docusate Sodium TABLET 1 TAB PO (09:21)
[2023-05-23] MEDS: Atorvastatin Calcium 40 MG TABLET PO (09:21)
--- NOTE | 2023-05-23 09:34 | MHC.CLN ---
NUTRITION REVIEW OF WEIGHT HISTORY SHOWS WEIGHT LOSS X 60 DAYS=-8.9%. MOST RECENT INTAKE 75-100%. 3+ BLE EDEMA NOTED. DIET=2 GRAM SODIUM. NO ADDITIONAL NUTRITION INTERVENTIONS AT THIS TIME.
--- NOTE | 2023-05-23 11:52 | P.PNGS_ITS ---
Subjective Subjective Date of Service: 05/23/23 Interval history: no complaints says he is going home today Physical Exam Vital Signs: Vital Signs: Last Vital Signs Temp 98.2 F 05/23/23 07:34 Pulse 82 05/23/23 08:24 Resp 19 05/23/23 09:20 BP 106/51 L 05/23/23 07:34 Pulse Ox 92 05/23/23 07:34 O2 Del Method Room Air 05/23/23 10:26 O2 Flow Rate 2 05/20/23 16:00 BMI result Body Mass Index 39.7 Const: General: comfortable and no acute distress Resp: Effort & Inspection: normal respiratory effort Cardio: Rate: regular rate Extrem: Other: I and D site on right thigh - dry, ceullulitis and induration much improved Objective Data Active Medications Acetaminophen (Acetaminophen 325 Mg Tablet) 650 mg PO Q6H PRN PRN Reason: Pain, Mild (Pain Scale 1-3) Atorvastatin Calcium (Atorvastatin Calcium 40 Mg Tablet) 40 mg PO DAILY [facility] Last Admin: 05/23/23 09:21 Dose: 40 mg Documented By: BIJAN Fluticasone/Vilanterol (Fluticasone/Vilanterol 100/25 Blst.W.Dev) 1 puff INHALE RBID [facility] Last Admin: 05/23/23 08:22 Dose: 1 puff Documented By: SKY Furosemide (Furosemide 20 Mg Tablet) 20 mg PO BID [facility]; Protocol Last Admin: 05/22/23 08:30 Dose: 20 mg Documented By: JESSI Vancomycin HCl 1,000 mg/ (Sodium Chloride) 270 mls @ 270 mls/hr IV Q12H [facility] Last Infusion: 05/23/23 10:35 Dose: 0 mls/hr Documented By: BIJAN Methadone HCl (Methadone Hcl 20 Mg/2 Ml Oral.Conc) 135 mg PO DAILY [facility] Last Admin: 05/23/23 09:19 Dose: 135 mg Documented By: COTEMA Morphine Sulfate (Morphine Sulfate 4 Mg/Ml Cartridge) 3 mg IVPUSH Q3H PRN; Protocol PRN Reason: Pain, Severe (Pain Scale 7-10) Last Admin: 05/23/23 09:20 Dose: 3 mg Documented By: BKEMA Nicotine (Nicotine 21 Mg Patch.Td24) 21 mg TRANSDERMA DAILY [facility] Last Admin: 05/23/23 09:20 Dose: 21 mg Documented By: BKEMA Ondansetron HCl (Ondansetron Hcl 4 Mg/2 Ml Vial) 4 mg IVPUSH Q8H PRN PRN Reason: Nausea and Vomiting Oxycodone HCl (Oxycodone Hcl Immed Release 5 Mg Tablet) 10 mg PO Q6H PRN PRN Reason: Pain, Moderate(Pain Scale 4-6) Last Admin: 05/21/23 21:49 Dose: 10 mg Documented By: CHASITY Pharmacy Consult (Consult Rx Perform Med Rec) 1 each MISCELLANE ONCE PRN PRN Reason: Consult order Pharmacy Consult (Consult Rx Vancomycin Dosing) 1 each MISCELLANE DAILY PRN PRN Reason: Consult order Senna/Docusate Sodium (Sennosides/Docusate Sodium Tablet) 1 tab PO BID [facility] Last Admin: 05/23/23 09:21 Dose: 1 tab Documented By: BIJAN Sodium Chloride (0.9 % Sodium Chloride Flush 3 Ml Syringe) 3 ml IVFLUSH QSHIFT [facility] Last Admin: 05/23/23 09:21 Dose: 3 ml Documented By: BIJAN Warfarin Sodium (Warfarin Sodium 6 Mg Tablet) 6 mg PO SUTUWETHFRSA@1800 [facility] Last Admin: 05/22/23 18:12 Dose: 6 mg Documented By: JESSI Warfarin Sodium 2 mg/ Warfarin (Sodium 2.5 mg) 4.5 mg PO Mo@1800 [facility] Labs 05/22/23 08:19 05/23/23 07:21 Labs: Laboratory Results - last 24 hr 05/22/23 05/23/23 05/23/23 19:18 07:21 07:21 PT 15.1 H INR 1.3 H Estim Creat Clear Calc 95.6 Estimated GFR > 60 Random Vancomycin 14.9 L Microbiology Microbiology Results: Microbiology 05/20/23 Unknown Gram Stain - Final Thigh Right Routine Culture - Final Methicillin Res Staph Aureus Corynebacterium species 05/20/23 07:22 Blood Culture - Preliminary Blood - Venous No growth after 48 hours. 05/20/23 07:22 Blood Culture - Preliminary Blood - Venous No growth after 48 hours. Procedures Date of Service Date of Service: 05/23/23 Progress Note: A&P Assessment and plan (1) Abscess of right thigh: Status: Acute Assessment and Plan: I removed packing dressings changed dry dressings daily cultures show MRSA, Corynebatectrium ffup prn in office Time Spent With Patient Time: Total time managing care of this patient today ____ minutes. Quality Stroke Does the patient have a stroke diagnosis?: No VTE Prior VTE?: Yes VTE Risk Level:: Medical - moderate - high VTE Device Contraindication: Procedure Contraindicated VTE Drug Contraindication: N/A - Med Ordered
--- NOTE | 2023-05-23 11:54 | PM.DS ---
DS: Providers Provider Date of Service: 05/23/23 Date of admission: 05/20/23 09:55 Primary care physician: Bette Steinberg MD Consults: 05/20/23 11:18 Consult to General Surgery Routine Consulting Provider: [facility] General Surgeons Reason for consultation: abscess - R thigh 05/23/23 08:50 Consult to Infectious Diseases Routine Consulting Provider: [facility] Infectious Disease Reason for consultation: Staph Cxr wound/ abscess DS: Diagnosis Discharge Diagnosis (1) Abscess of right thigh: Status: Acute DS: Summary Hospital Course Hospital Course: History and physical as per admitting provider. This is a 68 year old male with a PMH of morbid besity, chronic bilateral LE lymphedema, COPD, PVD, HCV, opiate dependence on methadone, HTN, PE/DVT who presented to [facility] ED (after being directed to do so by his PCP the day before) for complaints of RLE (thigh) swelling, induration, pain and drainage. The patient reports chronic superficial infections of the skin in the LE. He reports he noticed his R thigh region swelling about 2 weeks ago. The size has significantly progressed since then. He reports drainage and severe pain. He reports he was seen by his doctors as an outpatient yesterday and advised to come to the ED for further evaluation and treatment. He reports fevers and chills at home. In the ED, the patient's work up showed a large abscess (over 16cm) in the R lateral thigh. He had cultures drawn, was given IV antibiotics, IVF and IV analgesics. General surgery consult was placed and the patient will be admitted for IV antibiotics and likey I&D in the OR under general anesthesia. 68-year-old man treated for a right lateral thigh abscess with cellulitis. Seen by General surgery. Status post I&D on 05/20/2023. Treated with IV Rocephin and vancomycin. Wound cultures grew MRSA and Corynebacterium. Dressing on discharge changed by general surgeon, packing removed, dry dressing placed. Patient can cleanse the wound daily and place a dry dressing. Plan is for a total of 10 days of antibiotics, take doxycycline for the remainder of the treatment. He still has some edema to his lower extremities but this is chronic and he usually uses compression stockings at home. Patient is safe at this point for discharge with visiting nurse services. Chronic opiate dependence. Continue methadone COPD. No exacerbation continue baseline medications History of PE/ DVT. Continue warfarin Morbid obesity. BMI 39.7. Discussed importance of weight management as this may be contributing to worsening of other comorbidities Time Spent with Patient Time attestation: Total time managing care of this patient today ____ minutes. Discharge coordination time: Greater than 30 minutes Quality: Safe Use of Opioids Does Pt have an Active Cancer Diagnosis on the Problem List?: No Quality: Stroke Does the patient have a stroke diagnosis?: No Physical Exam Vital Signs: Vital Signs: Last Vital Signs Temp 98.2 F 05/23/23 07:34 Pulse 82 05/23/23 08:24 Resp 19 05/23/23 09:20 BP 106/51 L 05/23/23 07:34 Pulse Ox 92 05/23/23 07:34 O2 Del Method Room Air 05/23/23 10:26 O2 Flow Rate 2 05/20/23 16:00 BMI result Body Mass Index 39.7 Appearing in no acute distress head is normocephalic atraumatic eyes pupils are PERRLA sclera is anicteric mouth throat mucous membranes are intact and moist neck is supple no lymphadenopathy, no JVD noted lung sounds are clear to auscultation heart regular rate rhythm, clear S1, S2 positive bowel sounds, abdomen is soft, nontender neuro patient is alert x3, no focal deficits chronic skin changes to bilateral lower extremities DS: Data Data Completed and Pending Completed studies during hospitalization [Text1]: Procedures Respiratory Ventilation, Less than 24 Consecutive Hours (10/07/21) Supplement Right Inguinal Region with Synthetic Substitute, Open Approach (10/07/21) Labs on day of discharge: Laboratory Results - last 24 hr 05/22/23 05/23/23 05/23/23 19:18 07:21 07:21 PT 15.1 H INR 1.3 H Creatinine 1.01 Estim Creat Clear Calc 95.6 Estimated GFR > 60 Random Vancomycin 14.9 L Preliminary micro results at discharge 05/20/23 07:22 Blood Culture - Preliminary Blood - Venous No growth after 48 hours. 05/20/23 07:22 Blood Culture - Preliminary Blood - Venous No growth after 48 hours. Discharge Plan Discharge Anticipated Discharge Date/Time: 05/23/23 11:47 Patient Disposition: Home Health Service Discharge Diagnosis: cellulitis with right thigh abscess Referrals: [facility] [Outside] - 1 Week ([facility]) Bette Steinberg MD [Primary Care Provider] - 1 Week Discharge Medications: New doxycycline hyclate 100 mg tablet 100 mg PO BID Qty: 14 0RF nicotine 21 mg/24 hr Patch 24 Hour 21 mg transdermal DAILY Qty: 14 0RF Continued sennosides-docusate sodium [Stool Softener-Stimulant Laxat] 8.6-50 mg tablet 1 tab PO BID warfarin 3 mg tablet 6 mg PO SUTUWETHFRSA@1800 ascorbic acid (vitamin C) [Vitamin C] 500 mg tablet 1 tab PO BID furosemide 20 mg tablet 1 tab PO BID lisinopril 40 mg tablet 1 tab PO DAILY Hold Instructions: Monitor BP for 1 week and restart if elevated rosuvastatin 10 mg tablet 1 tab PO DAILY vitamin B complex-folic acid [Complex B-100] 400 mcg tablet extended release 1 tab PO DAILY (DME) dionne Misc See Rx Instructions .ROUTE Qty: 1 0RF Rx Instructions: As directed cholecalciferol (vitamin D3) 50 mcg (2,000 unit) tablet 50 mcg PO DAILY omega 9-gkc-rhv-fish oil 1,000 mg (120 mg-180 mg) capsule 1 cap PO DAILY fluticasone propion-salmeterol [Wixela Inhub] 250-50 mcg/dose blister with device 1 ea INHALATION BID warfarin 3 mg tablet 4.5 mg PO MO@1800 verapamil 120 mg capsule,ext rel. pellets 24 hr 120 mg PO DAILY methadone 10 mg/mL Concentrate 135 mg PO DAILY Discharge Orders: Discharge Order (Routine); Ordered 05/23/23 Ordered By: Yuki Glover Diet: Advance to usual diet Activity on Discharge: As tolerated Stand Alone Forms: Patient Portal Discharge page Activity Restrictions/Additional Instructions: wound care - dry dressings daily with gauze Care Plan Goals: Cleanse wound to right thigh and placed dry dressing, daily Health Concerns: Cellulitis with right thigh abscess Plan of Treatment: Follow-up with primary care provider as needed Assessment: See discharge summary
--- NOTE | 2023-05-23 12:25 | MHC.CM.PN ---
DP: PT HAS BEEN MEDICALLY CLEARED FOR DC HOME WITH [facility]. [facility] WILL TRANSPORT.
== END 2023-05-23 13:55 | disposition home health service (06) | DRG 603 ==
LOC: HO.ED 09:02 → HO.EDOVER 10:01 → HO.S3 14:06
PROVIDERS: Physician Assistant; Physician Assistant Medical; Surgery; Admitting Provider Family Medicine; Emergency Provider Emergency Medicine; PCP Internal Medicine Geriatric Medicine; Visit Provider Nurse Practitioner Acute Care
PROC: 0J9L0ZZ Drainage of Right Upper Leg Subcutaneous Tissue and Fascia, Open Approach (ICD-10-PCS; principal; 2023-05-20 11:30)
DX: L02.415 Cutaneous abscess of right lower limb (principal); F11.20 Opioid dependence, uncomplicated; E66.2 Morbid (severe) obesity with alveolar hypoventilation; J44.9 Chronic obstructive pulmonary disease, unspecified; L03.115 Cellulitis of right lower limb; R79.1 Abnormal coagulation profile; F17.210 Nicotine dependence, cigarettes, uncomplicated; B95.62 Methicillin resistant Staphylococcus aureus infection as the cause of diseases classified elsewhere; Z71.6 Tobacco abuse counseling; Z68.39 Body mass index [BMI] 39.0-39.9, adult; Z86.711 Personal history of pulmonary embolism; Z86.718 Personal history of other venous thrombosis and embolism; Z87.730 Personal history of (corrected) cleft lip and palate; Z79.01 Long term (current) use of anticoagulants; Z79.51 Long term (current) use of inhaled steroids; Z79.899 Other long term (current) drug therapy
CPT/HCPCS: 36415; 73701; 80048; 80053; 80202; 82550; 82565; 83605; 83880; 85027; 85610; 85652; 86140; 87040; 87070; 87077; 87186; 87205; 94640; 99284; J0690; J0696; J1170; J2270; J2795; J3010; J3370; Q9967

== ENCOUNTER → 2023-05-20 09:55 | Outpatient (BNV) | payer OTHER, SELFPAY | PROVIDERS: Admitting Provider Family Medicine; Emergency Provider Emergency Medicine; PCP Internal Medicine Geriatric Medicine; Visit Provider Surgery | DX: L02.415 Cutaneous abscess of right lower limb (principal) | CPT/HCPCS: 11042; 99024; 99222; 99232; 99499 ==

== ENCOUNTER → 2023-05-20 09:55 | Outpatient (BNV) | payer OTHER, SELFPAY | PROVIDERS: Admitting Provider Family Medicine; Emergency Provider Emergency Medicine; PCP Internal Medicine Geriatric Medicine; Visit Provider Family Medicine | DX: L02.415 Cutaneous abscess of right lower limb (principal) | CPT/HCPCS: 99223; 99232; 99239 ==

== ENCOUNTER 2023-06-07 14:08 | Outpatient (AMB) | payer OTHER, SELFPAY ==
--- NOTE | 2023-06-07 14:11 | A.OFFVIS_ITS ---
Intake Vital Signs 06/07/23 14:18 Height 5 ft 10 in Weight 276 lb 4 oz BMI 39.6 BP 130/74 Blood Pressure Location Lt brachial Position Sitting Pulse 108 H Intake Visit Reasons: abscess, possible I&D Intake Note: Patient is seen in office for abscess of the upper right thigh. Patient c/o: onset 3 wks, admits to discharge, redness, swelling, taking antibiotics has 4 days left, denies any other concerns Admissions Supervisor Required: No Accompanied by: Self / Same As Patient Allergies ibuprofen Allergy (Unknown, Verified 06/07/23 14:17) HIVES/STOMACHE UPSET Penicillins Allergy (Unknown, Verified 06/07/23 14:17) COMA tramadol Allergy (Verified 06/07/23 14:17) Unknown Medication List - Last Reconciled 06/07/23 by Olaf Colindres MD ascorbic acid (vitamin C) (Vitamin C) 1 tab PO BID cholecalciferol (vitamin D3) 50 mcg PO DAILY doxycycline hyclate 100 mg PO BID fluticasone propion-salmeterol 250-50 mcg/dose (Wixela Inhub) 1 ea inhalation BID furosemide 1 tab PO BID lisinopril 1 tab PO DAILY methadone 135 mg PO DAILY nicotine 21 mg transdermal DAILY omega 6-dum-qci-fish oil 1,000 mg (120 mg-180 mg) 1 cap PO DAILY rosuvastatin 1 tab PO DAILY sennosides-docusate sodium 8.6-50 mg (Stool Softener-Stimulant Laxative) 1 tab PO BID verapamil ER 120 mg PO DAILY vitamin B complex-folic acid 400 mcg ER (Complex B-100) 1 tab PO DAILY walker As directed warfarin 6 mg PO SUTUWETHFRSA@1800 warfarin 4.5 mg PO MO@1800 HPI abscess, possible I&D HPI Details 68-year-old male here for follow-up for his right thigh abscess. He had undergone I and D of deep subcutaneous right thigh abscess last May 20, 2023 with T3 under anesthesia in the operating room. He tolerated the procedure well. He actually had been doing quite well since that time but his visiting nurse and the patient have been noticing increasing drainage from the the site for the past several days. He denies any pain or tenderness. He denies any fever or chills at home. He says he feels well overall and seems to be in his usual state of health. He denies a history of diabetes.. He does have history of hypertensive cardiovascular disease, obesity, and hypoventilation as well as history of narc otic addition. He does describe multiple debridement of a right ankle wound in the past which has poorly healed [facility] Medical History (Updated 06/07/23 @ 14:42 by Olaf Colindres MD) Cellulitis Chronic back pain Chronic venous stasis dermatitis of both lower extremities DVT (deep venous thrombosis) Hepatitis C Hyperlipidemia Hypertensive cardiovascular disease Morbid obesity due to excess calories Narcotic addiction Obesity hypoventilation syndrome Open wound of right thigh Osteoarthritis Pulmonary embolism Sleep apnea Venous ulcer of right leg Surgical History History of arthroscopy of both knees History of repair of cleft lip Social History Household Members: Friend(s) Housing: Apartment Do you presently have visiting nurse or other home services: Yes Patient Tobacco Use Status: Never used Tobacco Tobacco use type: Cigarette Cigarette Packs Per Day: 1 Cigarettes Per Day: 20.0 Years Smoked: 30 e-Cigarette/Vaping Use: Currently Using Second Hand Smoke Exposure: No Substance Use Type: Marijuana service: No Current occupational status: disabled Review of Systems Const Denies chills and Denies fever(s) Card Denies chest pain, Denies chest pain at rest and Reports dyspnea on exertion Resp Denies cough and Reports dyspnea on exertion GI Denies abdominal pain Denies difficulty urinating Musc Reports abnormal gait, Reports back pain and Reports arthralgias Neuro Reports abnormal gait Physical Exam Vital Signs: Last Vital Signs Pulse 108 H 06/07/23 14:18 BP 130/74 06/07/23 14:18 BMI result Body Mass Index 39.6 Const Other: Walks with a cane appears overweight General: comfortable and no acute distress Resp Effort & Inspection: normal respiratory effort Cardio Rate: regular rate GI Palpation (GI): Soft to palpation, not firm and nontender Extrem Other: Open wound on the other lateral aspect of the right thigh, with note of subcutaneous fat necrosis, scanty drainage, no gangrene, no undrained fluid collection at this time, some rim of nonviable skin Assessment & Plan Assessment & Plan (1) Open wound of right thigh: Code(s): S71.101A - Unspecified open wound, right thigh, initial encounter Plan: He had a deep subcutaneous abscess on the right thigh laterally and had an I and D done last 05/20/2023 in the operating room. He has had some persistent of drainage and nonhealing of the wound. Examination suggests some nonviable tissue in the area. He likely also has subcutaneous fat necrosis I told him that in view of the nonhealing and persistent drainage, it may be best to proceed with debridement in the operating room along with possible I&D. We may have to open up and unroof the area to allow adequate drainage and healing. I reviewed with him the technique of this procedure. I explained the risks including but not limited to bleeding, infections and poor healing, as well as the benefits and alternatives. He wants to proceed He has a history of PE and DVT and is on Coumadin. We will stop his Coumadin today and he may be bridged with Lovenox because of his high risk. Coding Level of Care Code Est Pt Level 3 (98804) Diagnoses Open wound of right thigh S71.101A
[2023-06-07 14:18] VITALS: BP 130/74; PULSE 108; BMI 39.6
== END 2023-06-07 14:34 | disposition home or self-care (01) ==
PROVIDERS: PCP Internal Medicine Geriatric Medicine; Visit Provider Surgery
DX: S71.101A Unspecified open wound, right thigh, initial encounter (principal)
CPT/HCPCS: 99213

== ENCOUNTER → 2023-06-07 14:08 | Outpatient (BNVA) | payer OTHER, SELFPAY | PROVIDERS: PCP Internal Medicine Geriatric Medicine; Visit Provider Surgery | DX: L02.415 Cutaneous abscess of right lower limb (principal); Z79.01 Long term (current) use of anticoagulants | CPT/HCPCS: 99212 ==

== ENCOUNTER 2023-06-10 08:33 | Day surgery (SDC) | payer OTHER, SELFPAY ==
[2023-06-10] VITALS (11 sets, daily range): BP systolic 105–136; BP diastolic 59–81; PULSE 64–77; RESP 16–20; TEMP 36.2–36.6; O2SAT 95–98; BMI 39.6
--- NOTE | 2023-06-10 09:18 | P.CONAN_ITS ---
HPI - Anesthesia Eval Consult details Narrative: for I and D [facility] Active Problems Active Problems: All Active Problems (Updated 06/07/23 @ 14:42 by Olaf Colindres MD) Open wound of right thigh (Acute) Physical deconditioning (Acute) Scrotal edema (Acute) S/P right inguinal hernia repair (Acute) Acute and chronic respiratory failure (Acute) Hyperlipidemia (Acute) Hypertensive cardiovascular disease (Acute) Asthma (Acute) Obesity hypoventilation syndrome (Acute) Narcotic addiction (Acute) Past Medical History Medical History Cellulitis Chronic back pain Chronic venous stasis dermatitis of both lower extremities DVT (deep venous thrombosis) Hepatitis C Hyperlipidemia Hypertensive cardiovascular disease Morbid obesity due to excess calories Narcotic addiction Obesity hypoventilation syndrome Open wound of right thigh Osteoarthritis Pulmonary embolism Sleep apnea Venous ulcer of right leg Family History Family history of problems with anesthesia: No Surgical History Surgical History History of arthroscopy of both knees History of repair of cleft lip History of Problems with Anesthesia: No Social History Social History Household Members: Friend(s) Housing: Apartment Do you presently have visiting nurse or other home services: Yes Patient Tobacco Use Status: Current everyday Tobacco user Tobacco use type: Cigarette Cigarette Packs Per Day: 1 Cigarettes Per Day: 20.0 Years Smoked: 30 e-Cigarette/Vaping Use: Currently Using Second Hand Smoke Exposure: No Substance Use Type: Marijuana Are you DNR?: No Advance Directives: No Advance Directives Information Provided: Yes Nutrition Risks: No Nutritional Risk service: No Current occupational status: disabled Meds Allergies Allergy/AdvReac Type Severity Reaction Status Date / Time ibuprofen Allergy Unknown HIVES/STOMACHE Verified 06/07/23 14:17 UPSET Penicillins Allergy Unknown COMA Verified 06/07/23 14:17 tramadol Allergy Unknown Verified 06/07/23 14:17 Active Medications: Current Medications Lactated Ringer's (Lr) 1,000 mls @ 100 mls/hr IVCONT .Q10H [facility] Home Medications Medication Instructions Recorded Confirmed Last Taken Type ascorbic acid (vitamin C) 500 mg 1 tab PO BID 12/0106/07/23 05/19/23 History tablet (Vitamin C) furosemide 20 mg tablet 1 tab PO BID 10/07/21 06/07/23 05/19/23 History lisinopril 40 mg tablet 1 tab PO DAILY 10/07/21 06/07/23 05/19/23 History rosuvastatin 10 mg tablet 1 tab PO DAILY 10/07/21 06/07/23 05/19/23 History sennosides 8.6 mg-docusate sodium 1 tab PO BID 10/07/21 06/07/23 05/19/23 History 50 mg tablet (Stool Softener-Stimulant Laxative) vitamin B complex-folic acid ER 1 tab PO DAILY 10/07/21 06/07/23 05/19/23 History 400 mcg tablet,extended release (Complex B-100) warfarin 3 mg tablet 6 mg PO SUTUWETHFRSA@1800 10/07/21 06/07/23 05/19/23 History cholecalciferol (vitamin D3) 50 50 mcg PO DAILY 03/17/23 06/07/23 05/19/23 History mcg (2,000 unit) tablet omega 1-qmc-unk-fish oil 1,000 mg 1 cap PO DAILY 03/17/23 06/07/23 05/19/23 History (120 mg-180 mg) capsule fluticasone 250 mcg-salmeterol 50 1 ea inhalation BID 05/20/23 06/07/23 05/19/23 History mcg/dose blistr powdr for inhalation (Wixela Inhub) verapamil 120 mg 24 hr 120 mg PO DAILY 05/20/23 06/07/23 05/19/23 History capsule,extended release warfarin 3 mg tablet 4.5 mg PO MO@1800 05/20/23 06/07/23 05/16/23 History methadone 10 mg/mL oral concentrate 135 mg PO DAILY 05/21/23 06/07/23 05/20/23 History Exam Exam Date and Time: June 10, [id number] Height,Weight and Vital Signs: Height 5 ft 10 in Weight 125.191 kg Airway Mallampati Class: II TM Dist: >3cm Neck ROM: Full Denture: Upper and Lower Heart: RRR Lungs: CTA Assessment and Plan Assessment Anesthesia Assessment: Anesthesia Plan Discussed, Smoking Cess. Discussed and Chart Reviewed Final Anesthetic Review Family History of Problems with Anesthesia: No History of Problems with Anesthesia: No NPO: Yes ASA Class: III Final Preanesthetic Review: No Changes in Pt Med Stat, Meds/Allgs Chart Reviewed, Consent Obtained/Reviewed and Anes Risks/Benef Reviewed Patient Risk: Intermediate Procedure Risk: Low Anesthetic Plan Anesthetic Plan: MAC: (WITH ga BACK UP, TOX SCREEN PENDING) Disposition: Standard PACU
[2023-06-10 09:20] LABS: INTERNATIONAL NORM RATIO 1.3 (0.9-1.1); Prothrombin Time 16.4 SEC (11.1-13.3)
[2023-06-10 09:37] LABS: Amphetamine Screen Urine Not Detected (Not Detect); Barbiturates, Urine Not Detected (Not Detect); Benzodiazepines Screen Urine Not Detected (Not Detect); Cannabinoid Screen Urine POSITIVE (Not Detect); Cocaine Screen Urine Not Detected (Not Detect); Fentanyl, urine Not Detected (Not Detect); Opiate Screen Urine Not Detected (Not Detect); Phencyclidine Screen Urine Not Detected (Not Detect)
[2023-06-10] MEDS: Lactated Ringers 1,000 ML 100 ML IVCONT (09:39)
--- NOTE | 2023-06-10 09:45 | MHC.SHP ---
Pre-Procedural Eval Section A Date of Service: 06/10/23 The patient is an INPATIENT: No The History & Physical has been completed within 30 days and I have reviewed it.: Yes Section B Chief Complaint: Unspecified open wound, right thigh, initial Allergies: Allergies Allergy/AdvReac Type Severity Reaction Status Date / Time Penicillins Allergy Severe COMA Verified 06/10/23 09:38 ibuprofen Allergy Intermediate HIVES/STOMACHE Verified 06/10/23 09:38 UPSET tramadol Allergy Unknown Verified 06/10/23 09:38 Plan I have reviewed the history and physical and performed a pertinent physical examination on my patient. No changes have occurred unless specified. Time Spent With Patient Time: Total time managing care of this patient today ____ minutes.
--- NOTE | 2023-06-10 10:40 | W.PM.OPN ---
Operative Note Operative Note Date of Service: 06/10/23 Narrative: Preop diagnosis:right thigh wound with abscess Postop diagnosis: The same Procedure: Excisional debridement, right thigh wound to include skin and thick subcutaneous fat Surgeon: Olaf Colindres MD The patient is a 8-year-old male, who had previously undergone an I and D of a deep right thigh abscess. He has this persistent wound on the area along with purulent discharge. I had scheduled him for the possible repeat I&D and debridement in the OR under anesthesia. He understood the technique of this procedure as well to risks, benefits, and alternatives. He was brought to the operating room. He was placed supine and slightly rotated to the left under general anesthesia via laryngeal mask airway. The lateral aspect the right thigh was prepped and draped in the usual sterile fashion. A surgical time-out was done. The patient was given cefazolin 2 g IV preoperatively Examination of the area showed old cruciate incision from the previous I&D which was still open. There was some scanty purulent drainage. I infiltrated the area with lidocaine 1%. I opened this wound with my fingers and there was note of old subcutaneous fat necrosis with some pus. I therefore did sharp excisional debridement of this entire thickened area using a blade 15 and Belle scissors. Thick skin and subcutaneous fat was removed and I used the electrocautery as well to excise more soft tissue. The right thigh muscle was exposed. There was no ongoing necrotizing soft tissue process . The open wound measured about 5.2 by 4 cm and about 4 cm deep. I had to do a lot of cauterization to control oozing areas. Applied wet to dry packing using a Kerlix roll and cover the area with thick fluffy gauze and ABD pads The procedure was completed. He tolerated procedure well. There were no immediate complications. Initial and final counts of sponges and instruments were correct. Estimated blood loss about 25 cc. The patient was extubated without difficulty and transferred to the recovery room with stable vital signs.
[2023-06-10] MEDS: oxyCODONE HCl Immed Release 5 MG TABLET PO (11:04)
[2023-06-10] MEDS: fentaNYL citrate/PF 100 MCG/2 ML VIAL 25 MCG IVPUSH ×4 (11:06→11:21)
== END 2023-06-10 12:15 | disposition home or self-care (01) ==
PROVIDERS: Anesthesiology; PCP Internal Medicine Geriatric Medicine; Visit Provider Surgery
PROC: (CPT 11042; principal; 2023-06-10 09:50)
PROC: (CPT 11042; 2023-06-10 09:50)
DX: S71.101A Unspecified open wound, right thigh, initial encounter (principal); X58.XXXA Exposure to other specified factors, initial encounter; Y93.9 Activity, unspecified; Y92.9 Unspecified place or not applicable; Y99.8 Other external cause status; L02.415 Cutaneous abscess of right lower limb; B95.61 Methicillin susceptible Staphylococcus aureus infection as the cause of diseases classified elsewhere; L03.90 Cellulitis, unspecified; I11.9 Hypertensive heart disease without heart failure; B18.2 Chronic viral hepatitis C; E66.01 Morbid (severe) obesity due to excess calories; Z68.39 Body mass index [BMI] 39.0-39.9, adult; R06.89 Other abnormalities of breathing; F11.90 Opioid use, unspecified, uncomplicated; F12.90 Cannabis use, unspecified, uncomplicated; Z86.718 Personal history of other venous thrombosis and embolism; Z86.711 Personal history of pulmonary embolism; Z79.01 Long term (current) use of anticoagulants; Z79.51 Long term (current) use of inhaled steroids; Z79.899 Other long term (current) drug therapy; Z99.89 Dependence on other enabling machines and devices; Z88.0 Allergy status to penicillin; Z88.1 Allergy status to other antibiotic agents; F17.210 Nicotine dependence, cigarettes, uncomplicated
CPT/HCPCS: 11042; 36415; 80307; 85610; 87070; 87077; 87186; 87205; 88304; J0690; J2250; J3010

== ENCOUNTER → 2023-06-10 08:33 | Outpatient (BNV) | payer OTHER, SELFPAY | PROVIDERS: PCP Internal Medicine Geriatric Medicine; Visit Provider Surgery | DX: L02.415 Cutaneous abscess of right lower limb (principal) | CPT/HCPCS: 11042 ==

== ENCOUNTER 2023-06-27 10:45 | Outpatient (AMB) | payer OTHER, SELFPAY ==
--- NOTE | 2023-06-27 11:09 | A.OFFVIS_ITS ---
Intake Vital Signs 06/27/23 11:13 Height 5 ft 10 in Weight 268 lb 4 oz BMI 38.5 BP 110/70 Blood Pressure Location Lt brachial Position Sitting Intake Visit Reasons: S/P debirdement, I&D of Rt thigh wound Intake Note: Patient is seen in office for post op assessment post debridment & I&D of right thigh. Patient c/o: admits to discharge yellowish , minimal pain in the area, has nurse coming in daily Plumber Supervisor Required: No Accompanied by: Other Relationship Allergies Penicillins Allergy (Severe, Verified 06/27/23 11:14) COMA ibuprofen Allergy (Intermediate, Verified 06/27/23 11:14) HIVES/STOMACHE UPSET tramadol Allergy (Verified 06/27/23 11:14) Unknown HPI S/P debirdement, I&D of Rt thigh wound HPI Details He underwent excisional debridement of the right thigh because of a persistent abscess last 06/10/2023. He tolerated procedure well. He says dressing changes are being done by a visiting nurse daily and they have been using Aquacel. He describes some scanty drainage seen with the dressings. [facility] Medical History Cellulitis Chronic back pain Chronic venous stasis dermatitis of both lower extremities DVT (deep venous thrombosis) Hepatitis C Hyperlipidemia Hypertensive cardiovascular disease Morbid obesity due to excess calories Narcotic addiction Obesity hypoventilation syndrome Open wound of right thigh Osteoarthritis Pulmonary embolism Sleep apnea Venous ulcer of right leg Surgical History History of arthroscopy of both knees History of incision and drainage History of repair of cleft lip History of surgery on lower extremity (06/10/23) Social History Household Members: Friend(s) Housing: Apartment Do you presently have visiting nurse or other home services: Yes Patient Tobacco Use Status: Current everyday Tobacco user Tobacco use type: Cigarette Cigarette Packs Per Day: 1 Cigarettes Per Day: 20.0 Years Smoked: 30 e-Cigarette/Vaping Use: Currently Using Second Hand Smoke Exposure: No Substance Use Type: Marijuana service: No Current occupational status: disabled Review of Systems Const Denies chills and Denies fever(s) Physical Exam Vital Signs: Last Vital Signs BP 110/70 06/27/23 11:13 BMI result Body Mass Index 38.5 Const Other: Walks with a cane General: comfortable and no acute distress Extrem Other: Open wound on the right thigh clean, no gangrenous tissue, some surrounding skin irritation from tape, otherwise no significant pus but there is note of serosanguineous yellowish drainage Assessment & Plan Assessment & Plan (1) Open wound of right thigh: Code(s): S71.101A - Unspecified open wound, right thigh, initial encounter Plan: Status post excision and debridement. I changes dressings. The wound actually looks clean. He has has finished his course of Bactrim which I prescribed as the culture showed MRSA. He is to continue doing daily dressing changes which he says is being done by the visiting nurse. I will see him again in the office in about a month for another wound check. Coding Level of Care Code Global (90406) Diagnoses Open wound of right thigh S71.101A
[2023-06-27 11:13] VITALS: BP 110/70; BMI 38.5
== END 2023-06-27 11:16 | disposition home or self-care (01) ==
PROVIDERS: PCP Internal Medicine Geriatric Medicine; Visit Provider Surgery
DX: S71.101A Unspecified open wound, right thigh, initial encounter (principal)
CPT/HCPCS: 99213

== ENCOUNTER → 2023-06-27 10:45 | Outpatient (BNVA) | payer OTHER, SELFPAY | PROVIDERS: PCP Internal Medicine Geriatric Medicine; Visit Provider Surgery | DX: S71.101A Unspecified open wound, right thigh, initial encounter (principal); X58.XXXA Exposure to other specified factors, initial encounter; Y93.9 Activity, unspecified; Y92.9 Unspecified place or not applicable; Y99.9 Unspecified external cause status | CPT/HCPCS: 99212 ==

== ENCOUNTER 2023-07-20 10:58 | Outpatient (AMB) | payer OTHER, SELFPAY ==
--- NOTE | 2023-07-20 11:14 | MHC.OFFVIS ---
Intake Vital Signs 07/20/23 11:20 Height 5 ft 10 in Weight 271 lb BMI 38.9 BP 112/58 L Blood Pressure Location Rt brachial Position Sitting Pulse 71 Intake Visit Reasons: wound check Intake Note: This patient presents for an assessment for a wound check. Patient c/o; report swelling posterior thigh. Configuration Release Manager Required: No Accompanied by: Self / Same As Patient Allergies Penicillins Allergy (Severe, Verified 07/20/23 11:20) COMA ibuprofen Allergy (Intermediate, Verified 07/20/23 11:20) HIVES/STOMACHE UPSET tramadol Allergy (Verified 07/20/23 11:20) Unknown Medication List - Last Reconciled 07/20/23 by Olaf Colindres MD ascorbic acid (vitamin C) (Vitamin C) 1 tab PO BID cholecalciferol (vitamin D3) 50 mcg PO DAILY doxycycline hyclate 100 mg PO BID fluticasone propion-salmeterol 250-50 mcg/dose (Wixela Inhub) 1 ea inhalation BID furosemide 1 tab PO BID lisinopril 1 tab PO DAILY methadone 135 mg PO DAILY nicotine 21 mg transdermal DAILY omega 6-bbk-kwb-fish oil 1,000 mg (120 mg-180 mg) 1 cap PO DAILY oxycodone 5 mg PO Q4H PRN rosuvastatin 1 tab PO DAILY sennosides-docusate sodium 8.6-50 mg (Stool Softener-Stimulant Laxative) 1 tab PO BID [sterile gauze 4x4 As directed] sulfamethoxazole-trimethoprim 800-160 mg (Bactrim DS) 1 tab PO BID [tape 1 inch As directed] verapamil ER 120 mg PO DAILY vitamin B complex-folic acid 400 mcg ER (Complex B-100) 1 tab PO DAILY walker As directed warfarin 6 mg PO SUTUWETHFRSA@1800 warfarin 4.5 mg PO MO@1800 HPI wound check HPI Details He is here for wound check after I&D and debridement of a right thigh abscess. He denies any new complaints. He says that the wound itself has decreased in size significantly He does mention that the posterior thighs seems to be edematous compared to the opposite thigh. Denies pain on this area. [facility] Medical History Open wound of right thigh Venous ulcer of right leg Cellulitis Hyperlipidemia Hypertensive cardiovascular disease Obesity hypoventilation syndrome Morbid obesity due to excess calories Chronic venous stasis dermatitis of both lower extremities Hepatitis C Sleep apnea Narcotic addiction Osteoarthritis Pulmonary embolism DVT (deep venous thrombosis) Chronic back pain Surgical History History of surgery on lower extremity (06/10/23) History of incision and drainage History of repair of cleft lip History of arthroscopy of both knees Social History Household Members: Friend(s) Housing: Apartment Do you presently have visiting nurse or other home services: Yes Patient Tobacco Use Status: Current everyday Tobacco user Tobacco use type: Cigarette Cigarette Packs Per Day: 1 Cigarettes Per Day: 20.0 Years Smoked: 30 e-Cigarette/Vaping Use: Currently Using Second Hand Smoke Exposure: No Substance Use Type: Marijuana service: No Current occupational status: disabled Review of Systems Const Denies chills and Denies fever(s) Card Denies chest pain Resp Denies cough Physical Exam Vital Signs: Last Vital Signs Pulse 71 07/20/23 11:20 BP 112/58 L 07/20/23 11:20 BMI result Body Mass Index 38.9 Const General: comfortable and no acute distress Resp Effort & Inspection: normal respiratory effort Extrem Other: I&D and debridement site on the right lateral thigh has now decreased in size significantly. This is dry with no significant cellulitis. He does have what appears to be dependent edema on the posterior thigh and there was no induration on this area Assessment & Plan Assessment & Plan (1) Open wound of right thigh: Code(s): S71.101A - Unspecified open wound, right thigh, initial encounter Plan: Status post I&D and debridement of the right thigh area. Continues to do well. The debridement site seems to be closing up significantly and open wound has decreased in size. I have instructed him continuing good wound care. I will see him again in about a month to re-evaluate this area. Coding Level of Care Code Est Pt Level 2 (66343) Diagnoses Open wound of right thigh S71.101A
[2023-07-20 11:20] VITALS: BP 112/58; PULSE 71; BMI 38.9
== END 2023-07-20 11:41 | disposition home or self-care (01) ==
PROVIDERS: PCP Internal Medicine Geriatric Medicine; Visit Provider Surgery
DX: S71.101A Unspecified open wound, right thigh, initial encounter (principal)
CPT/HCPCS: 99212

== ENCOUNTER → 2023-07-20 10:58 | Outpatient (BNVA) | payer OTHER, SELFPAY | PROVIDERS: PCP Internal Medicine Geriatric Medicine; Visit Provider Surgery | DX: S71.101D Unspecified open wound, right thigh, subsequent encounter (principal) | CPT/HCPCS: 99212 ==

== ENCOUNTER 2023-08-17 09:18 | Outpatient (AMB) | payer OTHER, SELFPAY ==
--- NOTE | 2023-08-17 09:22 | MHC.OFFVIS ---
Intake Vital Signs 08/17/23 09:30 Height 5 ft 10 in Weight 270 lb BMI 38.7 BP 116/57 L Blood Pressure Location Rt brachial Position Sitting Pulse 75 Intake Visit Reasons: Open wound on the right thigh, wound check Intake Note: This patient presents for an assessment for a wound check for open wound on the right thigh. Patient c/o; reports rash bilateral arms and does not think is related to a side effect from medications. Family Centered Specialist Required: No Accompanied by: Self / Same As Patient Allergies Penicillins Allergy (Severe, Verified 08/17/23 09:32) COMA ibuprofen Allergy (Intermediate, Verified 08/17/23 09:32) HIVES/STOMACHE UPSET tramadol Allergy (Verified 08/17/23 09:32) Unknown Medication List - Last Reconciled 08/17/23 by Olaf Colindres MD ascorbic acid (vitamin C) (Vitamin C) 1 tab PO BID cholecalciferol (vitamin D3) 50 mcg PO DAILY doxycycline hyclate 100 mg PO BID fluticasone propion-salmeterol 250-50 mcg/dose (Wixela Inhub) 1 ea inhalation BID furosemide 1 tab PO BID lisinopril 1 tab PO DAILY methadone 135 mg PO DAILY nicotine 21 mg transdermal DAILY omega 4-hrd-kbn-fish oil 1,000 mg (120 mg-180 mg) 1 cap PO DAILY oxycodone 5 mg PO Q4H PRN rosuvastatin 1 tab PO DAILY sennosides-docusate sodium 8.6-50 mg (Stool Softener-Stimulant Laxative) 1 tab PO BID [sterile gauze 4x4 As directed] sulfamethoxazole-trimethoprim 800-160 mg (Bactrim DS) 1 tab PO BID [tape 1 inch As directed] verapamil ER 120 mg PO DAILY vitamin B complex-folic acid 400 mcg ER (Complex B-100) 1 tab PO DAILY walker As directed warfarin 6 mg PO SUTUWETHFRSA@1800 warfarin 4.5 mg PO MO@1800 HPI Open wound on the right thigh, wound check HPI Details He is here for follow-up for his open wound on the right thigh. He has had an I and D and debridement in the past for this. He states that the wound has been decreasing in size significantly. He says that the drainage also has gone down by a lot. He says that right thigh feels much better as well. He states that a visiting nurse comes by to change his dressings every day. [facility] Medical History Open wound of right thigh Venous ulcer of right leg Cellulitis Hyperlipidemia Hypertensive cardiovascular disease Obesity hypoventilation syndrome Morbid obesity due to excess calories Chronic venous stasis dermatitis of both lower extremities Hepatitis C Sleep apnea Narcotic addiction Osteoarthritis Pulmonary embolism DVT (deep venous thrombosis) Chronic back pain Surgical History History of surgery on lower extremity (06/10/23) History of incision and drainage History of repair of cleft lip History of arthroscopy of both knees Social History Household Members: Friend(s) Housing: Apartment Do you presently have visiting nurse or other home services: Yes Patient Tobacco Use Status: Current everyday Tobacco user Tobacco use type: Cigarette Cigarette Packs Per Day: 1 Cigarettes Per Day: 20.0 Years Smoked: 30 e-Cigarette/Vaping Use: Currently Using Second Hand Smoke Exposure: No Substance Use Type: Marijuana service: No Current occupational status: disabled Review of Systems Const Denies chills and Denies fever(s) Card Reports dyspnea on exertion Resp Denies cough and Reports dyspnea on exertion GI Denies abdominal pain Musc Reports limited range of motion Physical Exam Vital Signs: Last Vital Signs Pulse 75 08/17/23 09:30 BP 116/57 L 08/17/23 09:30 BMI result Body Mass Index 38.7 Const Other: Walks with a cane General: comfortable and no acute distress Resp Effort & Inspection: normal respiratory effort GI Palpation (GI): Soft to palpation, not firm and nontender Extrem Other: Right thigh edema, induration has improved significantly. There is still note of residual open wound on the lateral aspect but this is much smaller than before. There is less drainage as well Assessment & Plan Assessment & Plan (1) Open wound of right thigh: Code(s): S71.101A - Unspecified open wound, right thigh, initial encounter Plan: This has improved significantly after debridement and I and D in the OR. I changed his dressings. There is still note of a residual open wound but this is much smaller than before. The drainage has gone down significantly. He is to continue the same wound care. I can do another wound check in a month. Coding Level of Care Code Est Pt Level 2 (14030) Diagnoses Open wound of right thigh S71.101A
[2023-08-17 09:30] VITALS: BP 116/57; PULSE 75; BMI 38.7
== END 2023-08-17 09:44 | disposition home or self-care (01) ==
PROVIDERS: PCP Internal Medicine Geriatric Medicine; Visit Provider Surgery
DX: S71.101A Unspecified open wound, right thigh, initial encounter (principal)
CPT/HCPCS: 99212

== ENCOUNTER → 2023-08-17 09:18 | Outpatient (BNVA) | payer OTHER, SELFPAY | PROVIDERS: PCP Internal Medicine Geriatric Medicine; Visit Provider Surgery | DX: S71.101D Unspecified open wound, right thigh, subsequent encounter (principal) | CPT/HCPCS: 99212 ==

== ENCOUNTER 2023-09-21 09:32 | Outpatient (AMB) | payer OTHER, SELFPAY ==
--- NOTE | 2023-09-21 09:36 | A.OFFVIS_ITS ---
Intake Vital Signs 09/21/23 09:37 Height 5 ft 10 in Weight 264 lb 1.82 oz BMI 37.9 BP 121/59 L Blood Pressure Location Rt brachial Position Sitting Pulse 73 Pulse Source Pulse Oximeter Pulse Oximetry (%) 95 Oxygen Delivery Method Room Air Intake Visit Reasons: S/P debridement, I&D of Rt thigh wound Intake Note: Pt presents to the office today for s/p debridement, I&D of rt thigh wound. Pt states his wound is still weeping a yellowish discharge but not as much as before. Pt states he does have some pain in the area. Pt denies any fever or chills. Allergies Penicillins Allergy (Severe, Verified 09/21/23 09:40) COMA ibuprofen Allergy (Intermediate, Verified 09/21/23 09:40) HIVES/STOMACHE UPSET tramadol Allergy (Verified 09/21/23 09:40) Unknown Medication List - Last Reconciled 09/21/23 by Olaf Colindres MD ascorbic acid (vitamin C) (Vitamin C) 1 tab PO BID cholecalciferol (vitamin D3) 50 mcg PO DAILY fluticasone propion-salmeterol 250-50 mcg/dose (Wixela Inhub) 1 ea inhalation BID furosemide 1 tab PO BID lisinopril 1 tab PO DAILY methadone 135 mg PO DAILY nicotine 21 mg transdermal DAILY omega 6-lpo-ebd-fish oil 1,000 mg (120 mg-180 mg) 1 cap PO DAILY oxycodone 5 mg PO Q4H PRN rosuvastatin 1 tab PO DAILY sennosides-docusate sodium 8.6-50 mg (Stool Softener-Stimulant Laxative) 1 tab PO BID [sterile gauze 4x4 As directed] [tape 1 inch As directed] verapamil ER 120 mg PO DAILY vitamin B complex-folic acid 400 mcg ER (Complex B-100) 1 tab PO DAILY walker As directed warfarin 6 mg PO SUTUWETHFRSA@1800 warfarin 4.5 mg PO MO@1800 HPI S/P debridement, I&D of Rt thigh wound HPI Details He is here for follow-up for his open wound on the right thigh area. He says that this continues to dry up. He still has a little bit of drainage but he says that this has lessened significantly. He denies any pain. [facility] Medical History Open wound of right thigh Venous ulcer of right leg Cellulitis Hyperlipidemia Hypertensive cardiovascular disease Obesity hypoventilation syndrome Morbid obesity due to excess calories Chronic venous stasis dermatitis of both lower extremities Hepatitis C Sleep apnea Narcotic addiction Osteoarthritis Pulmonary embolism DVT (deep venous thrombosis) Chronic back pain Surgical History History of surgery on lower extremity (06/10/23) History of incision and drainage History of repair of cleft lip History of arthroscopy of both knees Social History Household Members: Friend(s) Housing: Apartment Do you presently have visiting nurse or other home services: Yes Alcohol intake: never Patient Tobacco Use Status: Current everyday Tobacco user Tobacco use type: Cigarette Cigarette Packs Per Day: 1 Cigarettes Per Day: 20.0 Years Smoked: 30 e-Cigarette/Vaping Use: Currently Using Second Hand Smoke Exposure: No Substance Use Type: Marijuana service: No Current occupational status: disabled Review of Systems Const Denies chills and Denies fever(s) Card Denies chest pain, Denies dyspnea and Reports dyspnea on exertion Resp Denies cough, Denies dyspnea and Reports dyspnea on exertion GI Denies hematochezia and Denies change in bowel habits Denies hematuria and Denies difficulty urinating Musc Reports abnormal gait, Reports back pain, Reports arthralgias and Reports limited range of motion Neuro Reports abnormal gait, Denies focal weakness and Denies convulsions Psych Denies depression and Denies mood swings Physical Exam Vital Signs: Last Vital Signs Pulse 73 09/21/23 09:37 BP 121/59 L 09/21/23 09:37 Pulse Ox 95 09/21/23 09:37 Oxygen Delivery Method Room Air 09/21/23 09:37 BMI result Body Mass Index 37.9 Const Other: Walks with a walker General: comfortable and no acute distress Resp Effort & Inspection: normal respiratory effort Cardio Rate: regular rate GI Palpation (GI): Soft to palpation and nontender Extrem Other: right thigh open wound smaller in diameter, no obvious discharge, no induration, no fluctuance Assessment & Plan Assessment & Plan (1) Open wound of right thigh: Code(s): S71.101A - Unspecified open wound, right thigh, initial encounter Plan: This continues to increase in size. The drainage has also lessened. He has had multiple debridement and drainage for this in the past. I told him to continue current wound care. I anticipate this to continue to heal. I will see him in the office for another wound check in about 6 weeks. He says he does not want to go to the Wound Clinic at this time. Coding Level of Care Code Est Pt Level 3 (04981) Diagnoses Open wound of right thigh S71.101A
[2023-09-21 09:37] VITALS: BP 121/59; PULSE 73; O2SAT 95; BMI 37.9
== END 2023-09-21 09:57 | disposition home or self-care (01) ==
PROVIDERS: PCP Internal Medicine Geriatric Medicine; Visit Provider Surgery
DX: S71.101A Unspecified open wound, right thigh, initial encounter (principal)
CPT/HCPCS: 99213

== ENCOUNTER → 2023-09-21 09:32 | Outpatient (BNVA) | payer OTHER, SELFPAY | PROVIDERS: PCP Internal Medicine Geriatric Medicine; Visit Provider Surgery | DX: S71.101A Unspecified open wound, right thigh, initial encounter (principal); X58.XXXA Exposure to other specified factors, initial encounter; Y93.9 Activity, unspecified; Y92.9 Unspecified place or not applicable; Y99.9 Unspecified external cause status; Z79.891 Long term (current) use of opiate analgesic | CPT/HCPCS: 99212 ==

== ENCOUNTER 2023-11-02 09:35 | Outpatient (AMB) | payer OTHER, SELFPAY ==
--- NOTE | 2023-11-02 10:03 | A.OFFVIS_ITS ---
Intake Vital Signs 11/02/23 10:08 Height 5 ft 10 in Weight 268 lb BMI 38.4 BP 135/63 Blood Pressure Location Rt brachial Position Sitting Pulse 70 Intake Visit Reasons: S/P debridement, I&D of Rt thigh wound Intake Note: This patient presents for an assessment for a wound check status post debridement and I&D of right thigh. Patient c/o; reports no complaints at this time. Staffing Specialist Required: No Accompanied by: Self / Same As Patient Allergies Penicillins Allergy (Severe, Verified 11/02/23 10:09) COMA ibuprofen Allergy (Intermediate, Verified 11/02/23 10:09) HIVES/STOMACHE UPSET tramadol Allergy (Verified 11/02/23 10:09) Unknown Medication List - Last Reconciled 11/02/23 by Olaf Colindres MD ascorbic acid (vitamin C) (Vitamin C) 1 tab PO BID cholecalciferol (vitamin D3) 50 mcg PO DAILY fluticasone propion-salmeterol 250-50 mcg/dose (Wixela Inhub) 1 ea inhalation BID furosemide 1 tab PO BID lisinopril 1 tab PO DAILY methadone 135 mg PO DAILY nicotine 21 mg transdermal DAILY omega 6-duh-gib-fish oil 1,000 mg (120 mg-180 mg) 1 cap PO DAILY oxycodone 5 mg PO Q4H PRN rosuvastatin 1 tab PO DAILY sennosides-docusate sodium 8.6-50 mg (Stool Softener-Stimulant Laxative) 1 tab PO BID [sterile gauze 4x4 As directed] [tape 1 inch As directed] verapamil ER 120 mg PO DAILY vitamin B complex-folic acid 400 mcg ER (Complex B-100) 1 tab PO DAILY walker As directed warfarin 6 mg PO SUTUWETHFRSA@1800 warfarin 4.5 mg PO MO@1800 HPI S/P debridement, I&D of Rt thigh wound HPI Details He is here for follow-up for his right thigh wound. He has had multiple debridement for this area. He says that his has continued to improve and now seems to be almost closed. However, he does notice some scanty drainage on the area with some skin breakdown. He denies any pain. [facility] Medical History Open wound of right thigh Venous ulcer of right leg Cellulitis Hyperlipidemia Hypertensive cardiovascular disease Obesity hypoventilation syndrome Morbid obesity due to excess calories Chronic venous stasis dermatitis of both lower extremities Hepatitis C Sleep apnea Narcotic addiction Osteoarthritis Pulmonary embolism DVT (deep venous thrombosis) Chronic back pain Surgical History History of surgery on lower extremity (06/10/23) History of incision and drainage History of repair of cleft lip History of arthroscopy of both knees Social History Household Members: Friend(s) Housing: Apartment Do you presently have visiting nurse or other home services: Yes Alcohol intake: never Comment: pt to sss Patient Tobacco Use Status: Current everyday Tobacco user Tobacco use type: Cigarette Cigarette Packs Per Day: 1 Cigarettes Per Day: 20.0 Years Smoked: 30 e-Cigarette/Vaping Use: Currently Using Second Hand Smoke Exposure: No Substance Use Type: Marijuana service: No Current occupational status: disabled Review of Systems Const Denies chills and Denies fever(s) Card Denies chest pain, Denies dyspnea and Reports dyspnea on exertion Resp Denies cough, Denies dyspnea and Reports dyspnea on exertion GI Denies hematochezia and Denies change in bowel habits Denies hematuria and Denies difficulty urinating Musc Reports back pain, Reports myalgias, Reports arthralgias and Denies limited range of motion Neuro Denies focal weakness and Denies convulsions Psych Denies depression and Denies mood swings Physical Exam Vital Signs: Last Vital Signs Pulse 70 11/02/23 10:08 BP 135/63 11/02/23 10:08 BMI result Body Mass Index 38.4 Assessment & Plan Assessment & Plan (1) Open wound of right thigh: Code(s): S71.101A - Unspecified open wound, right thigh, initial encounter Plan: He has a chronic the wound of the right thigh and he had undergone multiple debridement for this. This is now almost completely but there is still some scanty drainage with raw skin I have applied dry dressing for this. This has improved significantly the past few months after debridement He used to be seen by the Wound Clinic in [facility] but he wants to be seen here instead so I will set him up for a consultation with the Wound Clinic at [facility] I will see him again for another wound check in about 2 months. Coding Level of Care Code Est Pt Level 3 (85735) Diagnoses Open wound of right thigh S71.101P
[2023-11-02 10:08] VITALS: BP 135/63; PULSE 70; BMI 38.4
== END 2023-11-02 10:36 | disposition home or self-care (01) ==
PROVIDERS: PCP Internal Medicine Geriatric Medicine; Visit Provider Surgery
DX: S71.101A Unspecified open wound, right thigh, initial encounter (principal)
CPT/HCPCS: 99213

== ENCOUNTER → 2023-11-02 09:35 | Outpatient (BNVA) | payer OTHER, SELFPAY | PROVIDERS: PCP Internal Medicine Geriatric Medicine; Visit Provider Surgery | DX: S71.101D Unspecified open wound, right thigh, subsequent encounter (principal) | CPT/HCPCS: 99212 ==

== ENCOUNTER 2023-11-17 08:45 | Outpatient (RCR) | payer OTHER, SELFPAY | END 2023-12-21 17:00 | disposition home or self-care (01) | LOC: HO.WCC 08:45 | PROVIDERS: Visit Provider Physician Assistant | DX: L97.112 Non-pressure chronic ulcer of right thigh with fat layer exposed (principal); M65.051 Abscess of tendon sheath, right thigh; L26 Exfoliative dermatitis; I73.9 Peripheral vascular disease, unspecified; I10 Essential (primary) hypertension; Z86.19 Personal history of other infectious and parasitic diseases; Z87.891 Personal history of nicotine dependence; Z86.718 Personal history of other venous thrombosis and embolism | CPT/HCPCS: 97597; 99212 ==

== ENCOUNTER 2024-01-11 08:59 | Outpatient (AMB) | payer OTHER, SELFPAY ==
[2024-01-11 09:11] VITALS: BP 128/59; PULSE 74; BMI 38.6
--- NOTE | 2024-01-11 09:11 | MHC.OFFVIS ---
Intake Vital Signs 01/11/24 09:11 Height 5 ft 10 in Weight 269 lb BMI 38.6 BP 128/59 L Blood Pressure Location Rt brachial Position Sitting Pulse 74 Intake Visit Reasons: Open wound of right thigh, 2 mo follow up Intake Note: This patient presents for a two month follow-up assessment for wound check right thigh. Pt c/o; reports no complaints. Animal Care Supervisor Required: No Accompanied by: Self / Same As Patient Allergies Penicillins Allergy (Severe, Verified 01/11/24 09:18) COMA ibuprofen Allergy (Intermediate, Verified 01/11/24 09:18) HIVES/STOMACHE UPSET tramadol Allergy (Verified 01/11/24 09:18) Unknown Medication List - Last Reconciled 01/11/24 by Olaf Colindres MD ascorbic acid (vitamin C) (Vitamin C) 1 tab PO BID cholecalciferol (vitamin D3) 50 mcg PO DAILY fluticasone propion-salmeterol 250-50 mcg/dose (Wixela Inhub) 1 ea inhalation BID furosemide 1 tab PO BID lisinopril 1 tab PO DAILY methadone 135 mg PO DAILY nicotine 21 mg transdermal DAILY omega 9-hvs-gfa-fish oil 1,000 mg (120 mg-180 mg) 1 cap PO DAILY oxycodone 5 mg PO Q4H PRN rosuvastatin 1 tab PO DAILY sennosides-docusate sodium 8.6-50 mg (Stool Softener-Stimulant Laxative) 1 tab PO BID [sterile gauze 4x4 As directed] [tape 1 inch As directed] verapamil ER 120 mg PO DAILY vitamin B complex-folic acid 400 mcg ER (Complex B-100) 1 tab PO DAILY walker As directed warfarin 6 mg PO SUTUWETHFRSA@1800 warfarin 4.5 mg PO MO@1800 HPI Open wound of right thigh, 2 mo follow up HPI Details He states that his right thigh wound has now healed completely. He no longer has any drainage. Denies any pain or discomfort on the area. [facility] Medical History Open wound of right thigh Venous ulcer of right leg Cellulitis Hyperlipidemia Hypertensive cardiovascular disease Obesity hypoventilation syndrome Morbid obesity due to excess calories Chronic venous stasis dermatitis of both lower extremities Hepatitis C Sleep apnea Narcotic addiction Osteoarthritis Pulmonary embolism DVT (deep venous thrombosis) Chronic back pain Surgical History History of surgery on lower extremity (06/10/23) History of incision and drainage History of repair of cleft lip History of arthroscopy of both knees Social History Household Members: Friend(s) Housing: Apartment Do you presently have visiting nurse or other home services: Yes Alcohol intake: never Comment: pt to sss Patient Tobacco Use Status: Current everyday Tobacco user Tobacco use type: Cigarette Cigarette Packs Per Day: 1 Cigarettes Per Day: 20.0 Years Smoked: 30 e-Cigarette/Vaping Use: Currently Using Second Hand Smoke Exposure: No Substance Use Type: Marijuana service: No Current occupational status: disabled Review of Systems Const Denies chills and Denies fever(s) Card Denies chest pain at rest Resp Denies cough GI Denies abdominal pain Musc Reports abnormal gait and Reports arthralgias Neuro Reports abnormal gait Physical Exam Vital Signs: Last Vital Signs Pulse 74 01/11/24 09:11 BP 128/59 L 01/11/24 09:11 BMI result Body Mass Index 38.6 Const Other: Walks with a cane General: No comfortable or no acute distress Resp Effort & Inspection: normal respiratory effort Cardio Rate: regular rate GI Palpation (GI): Soft to palpation and nontender Extrem Other: Right thigh wound now completely healed, no discharge, no cellulitis Assessment & Plan Assessment & Plan (1) Open wound of right thigh: Code(s): S71.101A - Unspecified open wound, right thigh, initial encounter Plan: This is now completely healed. There has no drainage or any residual opening. He can therefore follow up on a p.r.n. basis. He is very happy with the outcome. Coding Level of Care Code Est Pt Level 2 (26536) Diagnoses Open wound of right thigh S71.101A
== END 2024-01-11 09:30 | disposition home or self-care (01) ==
PROVIDERS: PCP Internal Medicine Geriatric Medicine; Visit Provider Surgery
DX: S71.101A Unspecified open wound, right thigh, initial encounter (principal)
CPT/HCPCS: 99212

== ENCOUNTER → 2024-01-11 08:59 | Outpatient (BNVA) | payer OTHER, SELFPAY | PROVIDERS: PCP Internal Medicine Geriatric Medicine; Visit Provider Surgery | DX: S71.101D Unspecified open wound, right thigh, subsequent encounter (principal) | CPT/HCPCS: 99212 ==

== ENCOUNTER 2024-05-29 09:50 | Emergency (ER) | payer OTHER, SELFPAY ==
--- NOTE | ~2024-05-29 | XR_ITS ---
EXAMINATION: XR CHEST CLINICAL INFORMATION: Cough COMPARISON: 03/17/2023 TECHNIQUE: 2 views of the chest were obtained. FINDINGS: Lungs clear. No pleural effusions. Heart size borderline with normal caliber pulmonary vessels. There is a small hiatal hernia. XR/XR chest 2V IMPRESSION: No active disease.
--- NOTE | ~2024-05-29 | CT_ITS ---
EXAMINATION: CT ANGIOGRAM OF THE CHEST WITH AND WITHOUT CONTRAST (CT PULMONARY ANGIOGRAM FOR PE) CLINICAL INFORMATION: Reason for Exam hemoptysis COMPARISON: 05/29/2024 plain film TECHNIQUE: Prior to contrast administration, noncontrast localization images were obtained. Subsequently, multidetector volumetric imaging was performed from the thoracic inlet to below the diaphragms following the administration of 80 mL Omnipaque 350 intravenous contrast. No contrast reaction reported Sagittal, coronal, and MIP oblique sagittal reformatted images were obtained on the CT workstation, uploaded to PACS, and reviewed. This CT examination was performed using dose optimization techniques as appropriate, variously including the following: *Automated exposure control *Adjustment of mA and/or kV according to patient size (this includes techniques or standardized protocols for targeted exams where dose is matched to indication/reason for exam; i.e. extremities or head) *Use of iterative reconstruction technique Total exam dose-length product 475 mGy-cm FINDINGS: QUALITY OF STUDY/CONTRAST BOLUS: Satisfactory. PULMONARY ARTERIES: No pulmonary emboli. THORACIC AORTA: No aneurysm. LUNG: No focal consolidation, nodules or masses. PLEURA: No pleural effusion or pneumothorax. MEDIASTINUM: Normal heart size. No pericardial effusion. No hilar or mediastinal lymphadenopathy. No evidence of septal bowing or right heart strain. Large fat-containing hiatal hernia creating mass effect along the posterior margin of the heart and left atrium. CORONARY ARTERY CALCIFICATION: None visualized on this study. CHEST WALL/AXILLA: No axillary or internal mammary lymphadenopathy. OSSEOUS STRUCTURES: Mild kyphosis in the thoracic spine. UPPER ABDOMEN: Hepatic steatosis. Partially visualized right renal cyst. Adrenals normal. Moderate fat-containing hiatal hernia previously described. No reflux of contrast into the hepatic veins to suggest elevated right heart pressures. CT/CT angio chest PE protocol IMPRESSION: Unremarkable exam. No evidence for acute PE. VTE: negative.
[2024-05-29 09:54] VITALS: BP 166/75; PULSE 81; RESP 20; TEMP 36.8; O2SAT 94; BMI 37.1
[2024-05-29 10:16] LABS: MANUAL DIFF FLAG NO
[2024-05-29 10:32] LABS: Basophils Percent Auto 0.6 % (0-2); Eosinophils Absolute Auto 0.6 X10*3/uL (0.0-0.4); Eosinophils Percent Auto 8.1 % (0-4); Imm Gran Abs Auto 0.02 X10*3/uL (0.00-0.03); Imm Gran Pct Auto 0.3 % (0.0-0.4); Lymphocytes Absolute Auto 1.6 X10*3/uL (1.2-4.9); Lymphocytes Percent Auto 22.8 % (20-40); Mean Corpuscular HGB Conc 34.2 g/dl (31.0-36.0); Mean Corpuscular Hemoglobin 33.9 pg (27.0-33.0); Mean Corpuscular Volume 99.2 fL (80.0-98.0); Mean Platelet Volume 9.4 fL (9.4-12.4); Monocytes Absolute Auto 0.5 X10*3/uL (0.1-1.2); Monocytes Percent Auto 6.9 % (2-11); Neutrophils Absolute Auto 4.4 x10*3/uL (2.0-8.3); Neutrophils Percent Auto 61.3 % (45-73); Platelet Count 180 X10*3/uL (160-400); Red Blood Count 3.83 X10*6/uL (4.60-5.80); Red Cell Distribution Width 13.2 % (11.0-16.0)
[2024-05-29 10:34] LABS: White Blood Count 7.2 X10*3/uL (4.8-10.8)
[2024-05-29 10:47] LABS: Alanine Aminotransferase 17 U/L (0-40); Albumin Level 4.4 g/dL (3.5-5.0); Alkaline Phosphatase 73 U/L (39-117); Anion Gap 13 (12-20); Aspartate Amino Transferase 26 U/L (5-37); Bilirubin Direct 0.3 mg/dL (0.0-0.5); Bilirubin Total 0.5 mg/dL (0.0-1.0); Blood Urea Nitrogen 36 mg/dL (9-16); Calcium 9.8 mg/dL (8.4-10.2); Carbon Dioxide 27 mmol/L (22-29); Chloride 101 mmol/L (96-108); Creatinine Clr Calc Pharmacy 59.3; Estimated Glomerular Filt Rate 45; Glucose Random 111 mg/dL (60-115); Lipase 17 U/L (8-78); Potassium 5.5 mmol/L (3.3-5.1); Sodium 135 mmol/L (135-145); Total Protein 7.9 g/dL (6.5-8.0)
[2024-05-29 11:09] VITALS: BP 114/43; PULSE 68; RESP 16; TEMP 36.6; O2SAT 96
[2024-05-29 11:17] LABS: Appearance Urine Clear; Color Urine Dark Yellow; Glucose Urine UA Negative (Negative); Leukocyte Esterase Urine Negative (Negative); Nitrite Urine Negative (Negative); PH 5.5 (5.0-9.0); Urine Blood Negative (Negative); Urine Ketones Negative (Negative); Urine Protein Negative (Neg-Trace)
[2024-05-29 11:25] LABS: Influenza A PCR NEGATIVE (Negative); Influenza B PCR NEGATIVE (Negative); Resp Syncy Virus RNA Qual PCR NEGATIVE (Negative); SARS COV2 PCR INHOUSE NEGATIVE (Negative)
[2024-05-29 11:27] LABS: Amphetamine Screen Urine Not Detected (Not Detect); Barbiturates, Urine Not Detected (Not Detect); Benzodiazepines Screen Urine Not Detected (Not Detect); Buprenorphine Scr Not Detected (Not Detect); Cannabinoid Screen Urine POSITIVE (Not Detect); Cocaine Screen Urine Not Detected (Not Detect); Fentanyl, urine Not Detected (Not Detect); Methadone Screen, Urine Positive (Not Detect); Opiate Screen Urine Not Detected (Not Detect); Oxycodone Screen Urine Not Detected (Not Detect); Phencyclidine Screen Urine Not Detected (Not Detect)
--- NOTE | 2024-05-29 12:15 | ED.GENADULT ---
HPI - General Adult General Chief complaint: General Medical Stated complaint: Spitting up blood Time Seen by Provider: 05/29/24 12:10 Source: patient Limitations: no limitations History of Present Illness HPI narrative: This is a 69yom with a pmhx of chronic bilateral LE lymphedema, COPD, PVD, HCV, opiate dependence on methadone, HTN, PE/DVT (on Coumadin) who presents for evaluation of hemoptysis. He states hacking up phlegm for the last 1 month. He states this morning coughing up blood and for this reason comes for evaluation. He states subjective fevers. He states no chills or myalgias. He states chest pain or dyspnea. He states no new leg swelling. He states no trauma or falls. He states no headache. He states no abdominal pain, nausea/vomiting, dysuria, urinary frequency/urgency, hematuria, flank pain, melena, hematochezia diarrhea or constipation. He states having his INR checked regularly and states he is has been at goal INR. Related Data Home Medications ?Medication ?Instructions ?Recorded ?Confirmed ascorbic acid (vitamin C) 500 mg 1 tab PO BID 10/07/21 01/11/24 tablet (Vitamin C) furosemide 20 mg tablet 1 tab PO BID 10/07/21 01/11/24 lisinopril 40 mg tablet 1 tab PO DAILY 10/07/21 01/11/24 rosuvastatin 10 mg tablet 1 tab PO DAILY 10/07/21 01/11/24 sennosides 8.6 mg-docusate sodium 1 tab PO BID 10/07/21 01/11/24 50 mg tablet (Stool Softener-Stimulant Laxative) vitamin B complex-folic acid ER 1 tab PO DAILY 10/07/21 01/11/24 400 mcg tablet,extended release (Complex B-100) warfarin 3 mg tablet 6 mg PO SUTUWETHFRSA@1800 10/07/21 01/11/24 cholecalciferol (vitamin D3) 50 50 mcg PO DAILY 03/17/23 01/11/24 mcg (2,000 unit) tablet omega 4-xay-ywi-fish oil 1,000 mg 1 cap PO DAILY 03/17/23 01/11/24 (120 mg-180 mg) capsule fluticasone 250 mcg-salmeterol 50 1 ea inhalation BID 05/20/23 01/11/24 mcg/dose blistr powdr for inhalation (Edsonleelamariah Inhub) verapamil 120 mg 24 hr 120 mg PO DAILY 05/20/23 01/11/24 capsule,extended release warfarin 3 mg tablet 4.5 mg PO MO@1800 05/20/23 01/11/24 methadone 10 mg/mL oral concentrate 135 mg PO DAILY 05/21/23 01/11/24 Previous Rx's ?Medication ?Instructions ?Recorded walker #1 ea 10/15/21 nicotine 21 mg/24 hr daily 21 mg transdermal DAILY #14 ea 05/23/23 transdermal patch sterile gauze 4x4 #50 ea 06/13/23 tape 1 inch #1 ea 06/13/23 oxycodone 5 mg tablet 5 mg PO Q4H PRN pain #20 tabs 06/21/23 Allergies Allergy/AdvReac Type Severity Reaction Status Date / Time Penicillins Allergy Severe COMA Verified 05/29/24 09:58 ibuprofen Allergy Intermediate HIVES/STOMACHE Verified 05/29/24 09:58 UPSET tramadol Allergy Unknown Verified 05/29/24 09:58 Review of Systems Review of Systems: ROS as per HPI [facility] Past Medical History Medical History Open wound of right thigh Venous ulcer of right leg Cellulitis Hyperlipidemia Hypertensive cardiovascular disease Obesity hypoventilation syndrome Morbid obesity due to excess calories Chronic venous stasis dermatitis of both lower extremities Hepatitis C Sleep apnea Narcotic addiction Osteoarthritis Pulmonary embolism DVT (deep venous thrombosis) Chronic back pain Surgical History History of surgery on lower extremity (06/10/23) History of incision and drainage History of repair of cleft lip History of arthroscopy of both knees Social History Social History Household Members: Friend(s) Housing: Apartment Do you presently have visiting nurse or other home services: Yes Alcohol intake: current Alcohol intake frequency: 3 or more drinks per day Alcohol type: hard liquor Comment: pt to sss Patient Tobacco Use Status: Current everyday Tobacco user Tobacco use type: Cigarette Cigarette Packs Per Day: 1 Cigarettes Per Day: 20.0 Years Smoked: 30 Smoked in Last 30 Days: Yes e-Cigarette/Vaping Use: Currently Using Second Hand Smoke Exposure: No Use of substances other than those prescribed or required for medical reasons: Yes Substance Use Type: Marijuana Advance Directives: Yes Advance Directives on File: Yes Advance Directives Date on File: 03/30/23 Do you have a plan to hurt others: No Plan service: No Current occupational status: disabled Physical Exam ED Vital Signs: Vital Signs - 24 hr 05/29/24 09:54 05/29/24 11:09 05/29/24 14:32 Temperature 98.2 F 97.9 F 97.9 F Pulse Rate 81 68 65 Respiratory Rate 20 16 18 Blood Pressure 166/75 H 114/43 L 128/67 Pulse Oximetry 94 96 96 Oxygen Delivery Method Room Air Room Air Room Air BMI result Body Mass Index 37.1 Gen: NAD, AOx3 HEENT: NCAT, EOMI, normal conjunctiva, no stigmata of epistaxis, tacky oral mucosa, posterior oropharynx clear without erythema, exudates or bleeding CV: RRR Pulm: CTAB, no increased work of breathing GI: Soft, NTND, no rebound, guarding or rigidity MSK: No bilateral lower extremity pitting edema or asymmetrical lower extremity edema, no bilateral calf erythema/edema/tenderness to palpation Skin: Bowel extremities with chronic venous stasis changes Neuro: Grossly non focal Medications Administered Discontinued Medications Generic Name Dose Route Start Last Admin Trade Name Freq PRN Reason Stop Dose Admin Lactated Ringer's 500 mls @ 999 mls/hr 05/29/24 12:30 05/29/24 13:38 Lr IV 05/29/24 13:00 Infused .Q31M VARGAS Infusion Iohexol 100 ml 05/29/24 12:53 05/29/24 12:53 Iohexol 350 Mg/Ml 100 Ml Infus..Btl IV 05/29/24 12:54 80 ml ONCE ONE Administration Medical Decision Making Medical Decision Making MDM Narrative: Differential diagnosis includes, but is not limited to bronchitis, pulmonary embolism, malignancy. I considered epistaxis, but patient complains of no epistaxis and has no stigmata of recent bleed on physical exam. Patient is afebrile and hemodynamically stable on room air. Exam is benign and reassuring. I reviewed and interpreted labs, which are notable for acute kidney injury. However, patient reports he is urinating normally and he is tolerating p.o. intake here in the ED. labs also notable for mild hyperkalemia of 5.5. However, my review and independent interpretation of the EKG there are no electrocardiographic changes of hyperkalemia. Given BUN to creatinine ratio greater than 20, I suspect that this is prerenal acute kidney injury. I provided patient with 1 IV fluids. I have counseled the patient the patient on appropriate oral intake. Diagnostic imaging studies as below are unremarkable for any acute findings. I considered admission for close monitoring and repeat blood work. However, patient states that he would like to go home and have his primary care doctor recheck his blood work. He reports feeling well at this time. He states that he has biggest concern bring him to the emergency room today was hemoptysis, but he feels reassured with the reassuring workup here in the emergency room. Patient states that he has already called and spoke with the carbon sequestration plant operator at his primary care doctor's office requesting a repeat basic metabolic panel. I believe this plan of care is reasonable given that patient appears reliable and has capacity to understand the plan of care. On re-examination, patient is well-appearing and in no acute distress. ?Patient states symptoms have resolved. ?There is no indication for further emergent evaluation in this otherwise well-appearing patient as above. ?Patient is provided written and verbal instructions, educational materials, recommendations for outpatient follow-up, strict return precautions and teach back is performed. ?Patient states understanding and agreement with plan of care. ?Patient is discharged home in stable and improved condition. Admission/Observation Consideration of admission/observation: Escalation of care including admission/observation considered Lab Data MDM Lab Attestation statement: I reviewed the patient's lab results. I independently reviewed and interpreted patient's labs. Patient's labs are notable for stable hemoglobin of 13.0 (previous 9.8 May 22, 2023). There is evidence of hyperkalemia with potassium 5.5 and acute kidney injury with creatinine 1.55 (previous 1.01). 05/29/24 10:12 05/29/24 10:12 Labs: Lab Results 05/29/24 05/29/24 05/29/24 Range/Units 10:12 11:05 12:35 WBC 7.2 (4.8-10.8) X10*3/uL RBC 3.83 L D (4.60-5.80) X10*6/uL Hgb 13.0 L D (14.0-18.0) g/dl Hct 38.0 L D (42.0-52.0) % MCV 99.2 H (80.0-98.0) fL MCH 33.9 H (27.0-33.0) pg MCHC 34.2 (31.0-36.0) g/dl RDW 13.2 (11.0-16.0) % Plt Count 180 D (160-400) X10*3/uL MPV 9.4 (9.4-12.4) fL Immature Gran % (Auto) 0.3 (0.0-0.4) % Neut % (Auto) 61.3 (45-73) % Lymph % (Auto) 22.8 (20-40) % [place] % (Auto) 6.9 (2-11) % Eos % (Auto) 8.1 H (0-4) % Baso % (Auto) 0.6 (0-2) % Lymph # (Auto) 1.6 (1.2-4.9) X10*3/uL [place] # (Auto) 0.5 (0.1-1.2) X10*3/uL Eos # (Auto) 0.6 H (0.0-0.4) X10*3/uL Baso # (Auto) 0.0 (0.0-0.2) X10*3/uL Abs Immat Gran (auto) 0.02 (0.00-0.03) X10*3/uL Absolute Neuts (auto) 4.4 (2.0-8.3) x10*3/uL Absolute Nucleated RBC 0.000 (0.0-0.012) X10*3/uL Nucleated RBC % (auto) 0.0 (0.0-0.2) /100WBC APTT 36.7 (26.0-36.8) SEC Sodium 135 (135-145) mmol/L Potassium 5.5 H (3.3-5.1) mmol/L Chloride 101 (96-108) mmol/L Carbon Dioxide 27 (22-29) mmol/L Anion Gap 13 (12-20) BUN 36 H (9-16) mg/dL Creatinine 1.55 H (0.5-1.4) mg/dL Estim Creat Clear Calc 59.3 Estimated GFR 45 Random Glucose 111 (60-115) mg/dL Calcium 9.8 D (8.4-10.2) mg/dL Total Bilirubin 0.5 (0.0-1.0) mg/dL Direct Bilirubin 0.3 (0.0-0.5) mg/dL AST 26 (5-37) U/L ALT 17 (0-40) U/L Alkaline Phosphatase 73 (39-117) U/L Total Protein 7.9 (6.5-8.0) g/dL Albumin 4.4 (3.5-5.0) g/dL Lipase 17 (8-78) U/L Urine Color Dark Yellow Urine Appearance Clear Urine pH 5.5 (5.0-9.0) Ur Specific [place] 1.010 (1.005-1.025) Urine Protein Negative (Neg-Trace) mg/dL Urine Glucose (UA) Negative (Negative) mg/dL Urine Ketones Negative (Negative) mg/dL Urine Blood Negative (Negative) Urine Nitrite Negative (Negative) Ur Leukocyte Esterase Negative (Negative) Urine Opiates Screen Not Detected (Not Detect) Ur Buprenorphine Scrn Not Detected (Not Detect) ng/mL Ur Oxycodone Screen Not Detected (Not Detect) ng/mL Urine Methadone Screen Positive H (Not Detect) ng/mL Urine Fentanyl Screen Not Detected (Not Detect) Ur Barbiturates Screen Not Detected (Not Detect) Ur Phencyclidine Scrn Not Detected (Not Detect) Ur Amphetamines Screen Not Detected (Not Detect) U Benzodiazepines Scrn Not Detected (Not Detect) Urine Cocaine Screen Not Detected (Not Detect) U Marijuana (THC) Screen POSITIVE H (Not Detect) Influenza Type A (PCR) NEGATIVE (Negative) Influenza Type B (PCR) NEGATIVE (Negative) RSV RNA Qual (PCR) NEGATIVE (Negative) SARS-CoV-2 RNA (RT-PCR) NEGATIVE (Negative) Independent Interpretation I performed an independent interpretation of an: EKG and Plain X-Ray Interpretation: I reviewed chest x-ray which demonstrates no focal consolidation or pneumothorax. EKG independently reviewed and interpreted by me demonstrates sinus rhythm at 121 beats per minute, PA 168, QRS 70, QTC 312, PVCs, no STEMI, no peaked T-waves Radiology Impression Discussion of test interpretation with radiology: I have reviewed the radiologist's reading. Radiologist Impression: IMPRESSION: No active disease. Dictated By: Grayson Oshea MD Signed By: <Electronically signed by Grayson Oshea MD in OV> 05/29/24 1028 IMPRESSION: Unremarkable exam. No evidence for acute PE. VTE: negative. Dictated By: Grayson Oshea MD Signed By: <Electronically signed by Grayson Oshea MD in OV> 05/29/24 1321 Discharge Plan Discharge Clinical Impression: Hemoptysis, Acute kidney injury, Acute hyperkalemia Patient Disposition: Home, Self-Care Instructions: Acute Kidney Injury (DC), Hyperkalemia (ED), Hemoptysis (ED) Additional Instructions: You were seen and evaluated in the emergency room. Your vital signs were stable. Your EKG and CT scan were reassuring. Your blood work showed signs of acute kidney injury and elevated potassium level. You are given IV fluids for this reason. Please be sure to continue to stay hydrated drink at least 8 cups of water and monitoring your urine color (please try to keep your urine light yellow to clear). Please call your primary care physician tomorrow on May 30, 2024 to be sure that they are able to order a repeat basic metabolic panel?. Please have this blood work repeat at the latest by May 31 2024. Please return to the emergency room if you are unable to have this blood work done outside of the hospital. Please follow-up with your primary care physician in the next 24 hours and return to the emergency room if you have any new or concerning symptoms including, but not limited to coughing up more blood, chest pain, trouble breathing, fever, blood in urine, blood in your stools, abdominal pain, back pain, inability to eat/drink, lightheadedness, loss of consciousness or palpitations. Prescriptions: No Action oxycodone 5 mg tablet 5 mg PO Q4H PRN (Reason: pain) Qty: 20 0RF Rx Instructions: Partial Fill upon patient request. sennosides-docusate sodium [Stool Softener-Stimulant Laxat] 8.6-50 mg tablet 1 tab PO BID warfarin 3 mg tablet 6 mg PO SUTUWETHFRSA@1800 ascorbic acid (vitamin C) [Vitamin C] 500 mg tablet 1 tab PO BID furosemide 20 mg tablet 1 tab PO BID lisinopril 40 mg tablet 1 tab PO DAILY Hold Instructions: Monitor BP for 1 week and restart if elevated rosuvastatin 10 mg tablet 1 tab PO DAILY vitamin B complex-folic acid [Complex B-100] 400 mcg tablet extended release 1 tab PO DAILY (DME) walker Misc See Rx Instructions .Route Qty: 1 0RF Rx Instructions: As directed cholecalciferol (vitamin D3) 50 mcg (2,000 unit) tablet 50 mcg PO DAILY omega 5-jpc-pgi-fish oil 1,000 mg (120 mg-180 mg) capsule 1 cap PO DAILY fluticasone propion-salmeterol [Wixela Inhub] 250-50 mcg/dose blister with device 1 ea INHALATION BID warfarin 3 mg tablet 4.5 mg PO MO@1800 verapamil 120 mg capsule,ext rel. pellets 24 hr 120 mg PO DAILY methadone 10 mg/mL Concentrate 135 mg PO DAILY nicotine 21 mg/24 hr Patch 24 Hour 21 mg transdermal DAILY Qty: 14 0RF (DME) sterile gauze 4x4 See Rx Instructions .Route .MEDSUPPLY Qty: 50 2RF Rx Instructions: As directed (DME) tape 1 inch 1 roll See Rx Instructions .Route .MEDSUPPLY Qty: 1 2RF Rx Instructions: As directed Interventions: ED Discharge Assessment Last Done: 05/29/24 15:18 Print Language: Italian
--- NOTE | 2024-05-29 12:32 | ECG_ITS ---
Test Reason : HYPERKALEMIA Blood Pressure : / mmHG Vent. Rate : 121 BPM Atrial Rate : 121 BPM P-R Int : 168 ms QRS Dur : 070 ms QT Int : 220 ms P-R-T Axes : 000 -31 147 degrees QTc Int : 312 ms Artifact in tracing Possible Normal sinus rhythm Premature atrial complexes vs Premature ventricular complexes Left axis deviation Left ventricular hypertrophy with repolarization abnormality ( R in aVL ) Inferior infarct , age undetermined Anterolateral infarct (cited on or before 07-OCT-2021) Abnormal ECG When compared with ECG of 17-MAR-2023 10:08, Premature ventricular complexes are now Present Premature atrial complexes are no longer Present Questionable change in initial forces of Anterolateral leads Referred By: Jeremy Swann Electronically Signed By:VIRGIL WADE
[2024-05-29] MEDS: Lactated Ringers 500 ML 999 ML IV (12:39)
[2024-05-29] MEDS: iohexoL 350 MG/ML 100 ML INFUS..BTL IV (12:53)
[2024-05-29 12:55] LABS: Partial Thromboplastin Time 36.7 SEC (26.0-36.8)
--- NOTE | 2024-05-29 13:05 | PC.NURSE ---
Spoke to [employer] career placement services counselor number, able to pick patient up for transport home if needed.
[2024-05-29 14:32] VITALS: BP 128/67; PULSE 65; RESP 18; TEMP 36.6; O2SAT 96
[2024-05-29 15:18] VITALS: BP 128/67; PULSE 65; RESP 18; TEMP 36.6; O2SAT 96
== END 2024-05-29 15:19 | disposition home or self-care (01) ==
PROVIDERS: Emergency Provider Emergency Medicine; PCP Registered Nurse
DX: N17.9 Acute kidney failure, unspecified (principal); E87.5 Hyperkalemia; R04.2 Hemoptysis; Z03.818 Encounter for observation for suspected exposure to other biological agents ruled out; J45.909 Unspecified asthma, uncomplicated; F17.210 Nicotine dependence, cigarettes, uncomplicated; F11.20 Opioid dependence, uncomplicated; I10 Essential (primary) hypertension; E78.5 Hyperlipidemia, unspecified
CPT/HCPCS: 0241U; 36415; 71046; 71275; 80048; 80076; 80307; 81003; 83690; 85025; 85730; 93005; 96360; 99284; J7120; Q9967

== ENCOUNTER → 2024-05-29 12:32 | Outpatient (BNV) | payer OTHER, SELFPAY | PROVIDERS: Emergency Provider Emergency Medicine; PCP Registered Nurse; Visit Provider Internal Medicine | DX: R94.31 Abnormal electrocardiogram [ECG] [EKG] (principal) | CPT/HCPCS: 93010 ==

== ENCOUNTER 2024-07-12 11:13 | Outpatient (REF) | payer OTHER, SELFPAY ==
[2024-07-12 12:46] LABS: Blood Urea Nitrogen 50 mg/dL (9-16); Estimated Glomerular Filt Rate 32
== END 2024-07-12 11:14 | disposition home or self-care (01) ==
LOC: HO.LAB 11:13
PROVIDERS: PCP Registered Nurse; Visit Provider Surgery
DX: M79.89 Other specified soft tissue disorders (principal)
CPT/HCPCS: 36415; 82565; 84520; 99212

== ENCOUNTER 2024-07-12 11:13 | Outpatient (AMB) | payer OTHER, SELFPAY ==
[2024-07-12 11:14] VITALS: BP 129/65; PULSE 88; BMI 37.9
--- NOTE | 2024-07-12 11:14 | A.OFFVIS_ITS ---
Vital Signs 07/12/24 11:14 Height 5 ft 10 in Weight 264 lb BMI 37.9 BP 129/65 Blood Pressure Location Rt brachial Position Sitting Pulse 88 Intake Visit Reasons: Wound check , swelling Intake Note: This patient presents for Wound check , swelling. Pt c/o; reports swelling right lower extremity. Youth Corrections Officer Required: No Accompanied by: Self / Same As Patient Allergies Penicillins Allergy (Severe, Verified 07/12/24 11:14) COMA ibuprofen Allergy (Intermediate, Verified 07/12/24 11:14) HIVES/STOMACHE UPSET tramadol Allergy (Verified 07/12/24 11:14) Unknown Medication List - Last Reconciled 07/12/24 by Olaf Colindres MD ascorbic acid (vitamin C) (Vitamin C) 1 tab PO BID cholecalciferol (vitamin D3) 50 mcg PO DAILY fluticasone propion-salmeterol 250-50 mcg/dose (Wixela Inhub) 1 ea inhalation BID furosemide 1 tab PO BID lisinopril 1 tab PO DAILY methadone 135 mg PO DAILY nicotine 21 mg transdermal DAILY omega 3-wll-lhr-fish oil 1,000 mg (120 mg-180 mg) 1 cap PO DAILY oxycodone 5 mg PO Q4H PRN rosuvastatin 1 tab PO DAILY sennosides-docusate sodium 8.6-50 mg (Stool Softener-Stimulant Laxative) 1 tab PO BID [sterile gauze 4x4 As directed] [tape 1 inch As directed] verapamil ER 120 mg PO DAILY vitamin B complex-folic acid 400 mcg ER (Complex B-100) 1 tab PO DAILY walker As directed warfarin 6 mg PO SUTUWETHFRSA@1800 warfarin 4.5 mg PO MO@1800 HPI HPI Wound check , swelling: Details: He is well known for me for a chronic wound on the right thigh. I had done debridement in the past. This seemed to have involved the muscular area but this has healed after wound care. However for the past 10 days, he had noticed some swelling of his right thigh compared to the left. This swelling seems to extend all the way to the right lower leg. He denies any pain. He denies any drainage. He denies any discomfort. FORMERLY [facility], [facility] Medical History Swelling of thigh Open wound of right thigh Venous ulcer of right leg Cellulitis Hyperlipidemia Hypertensive cardiovascular disease Obesity hypoventilation syndrome Morbid obesity due to excess calories Chronic venous stasis dermatitis of both lower extremities Hepatitis C Sleep apnea Narcotic addiction Osteoarthritis Pulmonary embolism DVT (deep venous thrombosis) Chronic back pain Surgical History History of surgery on lower extremity (06/10/23) History of incision and drainage History of repair of cleft lip History of arthroscopy of both knees Social History Household Members: Friend(s) Housing: Apartment Do you presently have visiting nurse or other home services: Yes Alcohol intake: current Alcohol intake frequency: 3 or more drinks per day Alcohol type: hard liquor Comment: pt to sss Patient Tobacco Use Status: Current everyday Tobacco user Tobacco use type: Cigarette Cigarette Packs Per Day: 1 Cigarettes Per Day: 20.0 Years Smoked: 30 e-Cigarette/Vaping Use: Currently Using Second Hand Smoke Exposure: No Substance Use Type: Marijuana Advance Directives Date on File: 03/30/23 service: No Current occupational status: disabled Review of Systems Const Denies chills and Denies fever(s) Card Denies chest pain at rest and Reports dyspnea on exertion Resp Reports dyspnea on exertion GI Denies abdominal pain Denies dysuria Musc Reports abnormal gait and Reports arthralgias Neuro Reports abnormal gait Physical Exam Vital Signs: Last Vital Signs Pulse 88 07/12/24 11:14 BP 129/65 07/12/24 11:14 BMI result Body Mass Index 37.9 Const Other: Walks with a cane, looks well General: comfortable and no acute distress Resp Effort & Inspection: normal respiratory effort Cardio Rate: regular rate GI Palpation (GI): Soft to palpation and not firm Extrem Other: Edema of the right thigh and right lower leg, old wound on the right lateral thigh is well healed, dry, no induration, no cellulitis Assessment & Plan Assessment & Plan (1) Swelling of thigh: Code(s): M79.89 - Other specified soft tissue disorders Category: Medical Plan: There is no evidence of any acute infection. He has old right thigh wound is well healed and dry. I am going to send her for a CT scan of the thigh in view of his previous infection on the area with a persistent open wound requiring debridement I will see him the office to discuss the CT scan. He otherwise seems well. He denies any complaints with regards to the thigh swelling. This is probably secondary to edema. Orders: Orders CT femur RT w IV con Today M79.89 - Other specified soft tissue disorders Blood Urea Nitrogen Today M79.89 - Other specified soft tissue disorders Creatinine Today M79.89 - Other specified soft tissue disorders Coding Level of Care Code Est Pt Level 3 (48619) Diagnoses Swelling of thigh M79.89
== END 2024-07-12 11:34 | disposition home or self-care (01) ==
PROVIDERS: PCP Registered Nurse; Visit Provider Surgery
DX: M79.89 Other specified soft tissue disorders (principal)
CPT/HCPCS: 99213

== ENCOUNTER 2024-07-17 09:16 | Outpatient (AMB) | payer OTHER, SELFPAY ==
--- NOTE | 2024-07-17 09:21 | A.OFFVIS_ITS ---
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 States he can be sleeping , walking or sitting and he starts cramping. States he has small ulcers on his left great toe and a bad right toe. He has hx of two ablations, left le g was successful but the right leg failed . He also has very visible discoloration below the knee down to his ankles. Has had multiple hospital stays due to leg infections . 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 Complaints include pain over varicosities, swelling of lower extremities, cramping, fatigue, and heaviness of the lower extremities. 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 It is noted more so in right leg. 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 Trial of compression includes - [id number] They now present for vascular evaluation regarding their varicose veins. FORMERLY [facility] Medical History Swelling of thigh Open wound of right thigh Venous ulcer of right leg Cellulitis Hyperlipidemia Hypertensive cardiovascular disease Obesity hypoventilation syndrome Morbid obesity due to excess calories Chronic venous stasis dermatitis of both lower extremities Hepatitis C Sleep apnea Narcotic addiction Osteoarthritis Pulmonary embolism DVT (deep venous thrombosis) Chronic back pain Surgical History History of surgery on lower extremity (06/10/23) History of incision and drainage History of repair of cleft lip History of arthroscopy of both knees Social History Household Members: Friend(s) Housing: Apartment Do you presently have visiting nurse or other home services: Yes Alcohol intake: current Alcohol intake frequency: 3 or more drinks per day Alcohol type: hard liquor Comment: pt to sss Patient Tobacco Use Status: Current everyday Tobacco user Tobacco use type: Cigarette Cigarette Packs Per Day: 1 Cigarettes Per Day: 20.0 Years Smoked: 30 e-Cigarette/Vaping Use: Currently Using Second Hand Smoke Exposure: No Substance Use Type: Marijuana Advance Directives Date on File: 03/30/23 service: No Current occupational status: disabled Review of Systems Const Reports as per HPI ENT Reports no additional complaints Card Denies chest pain, Denies chest pain at rest and Denies chest pain with activity Resp Denies chest congestion and Denies cough GI Reports no additional complaints Musc Details: pain over varicosities, aching of lower extremities, swelling, cramping, heaviness and tiredness, itching Denies abnormal gait Skin/Breast Reports pruritus and Denies wounds Neuro Reports no additional complaints and Denies abnormal gait Psych Denies no additional complaints Physical Exam Const General: cooperative, healthy appearing and comfortable Orientation/consciousness: oriented to person, oriented to place and oriented to time Neck Carotids: no bruits Chest Chest palpation & inspection: normal inspection of the chest and normal palpation of entire chest wall Resp Effort & Inspection: normal respiratory effort and able to speak in complete sentences Cardio Rate: regular rate Heart sounds: S1 normal heart sound present and S2 normal heart sound present Peripheral pulses: Peripheral pulses 2+ throughout GI Inspection: Yes normal to inspection Skin Other: +2 edema, CEAP Classification C 5 healed ulceration Ep - Etiology Primary As - superficial veins P - reflux General skin exam: dry skin Neuro General: oriented to person, oriented to place and oriented to time Extrem Right lower extremity: full ROM, normal capillary refill and edema Left lower extremity: full ROM, normal capillary refill and edema Psych Mental Status: mental status grossly normal Assessment & Plan Assessment & Plan (1) Varicose veins of right lower extremity with inflammation: Code(s): I83.11 - Varicose veins of right lower extremity with inflammation Category: Medical Plan: In short, the patient has evidence of venous insufficiency. I have discussed the pathophysiology with the patient. In addition I have provided informational material regarding venous disease to the patient. We have discussed conservative measures including compression, elevation, and exercise. I have also provided a handout regarding appropriate use of compression stockings and where to purchase good compression stockings as well. I have taken the liberty of ordering venous insufficiency testing with the patient. They will follow up with me after testing. The patient had an opportunity to ask questions regarding the treatment plan. All questions were answered. Imaging studies, laboratory studies and physical exam results were discussed and reviewed in detail. No major barriers to understanding were identified. The patient expressed understanding and agreement with the above treatment plan. The patient is aware they should contact our office by phone for worsening of the current condition or the appearance of new symptoms. Thank you for allowing me to participate in the vascular care of this patient. If you have any questions or concerns regarding the treatment for the above condition please do not hesitate to contact me. The office telephone contact is [phone]. This note is constructed using voice recognition software. While every effort has been made to ensure accuracy, orchid hand errors may have been included. Thank you for allowing me to participate in the care of your patient. Yours sincerely, Carlito Weeks MD, FACS, R.P.V.I. Orders: Orders 2 US venous duplex LE BI 1 Week I83.11 - Varicose veins of right lower extremity with inflammation Coding Level of Care Code Est Pt Level 4 (09547) Diagnoses Varicose veins of right lower extremity with inflammation I83.11
== END 2024-07-17 10:10 | disposition home or self-care (01) ==
PROVIDERS: PCP Internal Medicine Geriatric Medicine; Visit Provider Surgery Vascular Surgery
DX: I83.11 Varicose veins of right lower extremity with inflammation (principal)
CPT/HCPCS: 99213

== ENCOUNTER → 2024-07-17 09:16 | Outpatient (BNVA) | payer OTHER, SELFPAY | PROVIDERS: PCP Internal Medicine Geriatric Medicine; Visit Provider Surgery Vascular Surgery | DX: I83.11 Varicose veins of right lower extremity with inflammation (principal) | CPT/HCPCS: 99212 ==

== ENCOUNTER 2024-08-17 10:14 | Outpatient (REF) | payer OTHER, SELFPAY ==
--- NOTE | ~2024-08-17 | US_ITS ---
EXAMINATION: US LOWER EXTREMITY VENOUS (REFLUX EXAM), BILATERAL CLINICAL INFORMATION: Chronic venous insufficiency with lower extremity varicose veins with pain and swelling. History of chronic deep venous thrombosis. History of prior bilateral great saphenous vein ablations COMPARISON: Ultrasounds from 03/17/2023 and 10/11/2021 TECHNIQUE: Color flow triplex imaging and compression Doppler was performed to evaluate both the deep and the superficial systems bilaterally. To evaluate the superficial system, the examination was performed in the upright position. Color-flow Doppler ultrasound and compression ultrasound were utilized. In addition, maneuvers were utilized to demonstrate reflux. FINDINGS: 1. DEEP VENOUS ULTRASOUND OF THE RIGHT LOWER EXTREMITY: Common Femoral Vein: Compressible, normal respiratory variation and augmented flow. Femoral Vein: Compressible, normal color flow and augmentation. Popliteal Vein: Compressible, normal augmentation. Deep Reflux: Mild deep venous reflux in the mid superficial femoral vein measuring 704 ms There is no evidence of a Trotter's cyst. 2. SUPERFICIAL ULTRASOUND WITH DOPPLER OF RIGHT LOWER EXTREMITY: GREAT SAPHENOUS VEIN: Saphenofemoral Junction: 1.1 cm; Reflux: 0 ms Proximal Thigh: 0.4 cm; Reflux: 0 ms Mid Thigh: Not visualized Distal Thigh: Not visualized At Knee: Not visualized Proximal Calf: Not visualized Mid Calf: 0.2 cm; Reflux: 1516 ms Distal Calf: 0.4 cm; Reflux: 0 ms DUPLICATED MEDIAL GREAT SAPHENOUS VEIN: Diameter: None imaged Reflux: NA DUPLICATED LATERAL GREAT SAPHENOUS VEIN: Diameter: 0.4 cm Reflux: None SMALL SAPHENOUS VEIN: Saphenopopliteal Junction: 0.3 cm; Reflux: 0 ms Proximal: 0.3 cm; Reflux: 0 ms Distal: 0.5 cm; Reflux: 0 ms VEIN OF GIACOMINI: Size: NA Reflux: NA PERFORATORS: Location: Mid calf Size: 0.3 cm Reflux: None VARICOSITIES: Location: Proximal thigh arising from the residual greater saphenous vein with varicosities extending through the thigh, knee and into the calf Size: 0.3 to 0.5 cm Reflux: Ranging from 1160 ms to 2188 ms 3. DEEP VENOUS ULTRASOUND OF THE LEFT LOWER EXTREMITY: Common Femoral Vein: Compressible, normal respiratory variation and augmented flow. Femoral Vein: Compressible, normal color flow and augmentation. Popliteal Vein: Chronic wall adherent thrombus again seen in the popliteal vein with partial compressibility, patent color-flow Deep Reflux: There is mild to moderate diffuse deep venous reflux within the common femoral, superficial femoral and popliteal veins. There is no evidence of a Trotter's cyst. 4. SUPERFICIAL ULTRASOUND WITH DOPPLER OF LEFT LOWER EXTREMITY: GREAT SAPHENOUS VEIN: Saphenofemoral Junction: 0.8 cm; Reflux: 0 ms Proximal Thigh: 0.4 cm; Reflux: 0 ms Mid Thigh: Not visualized Distal Thigh: 0.2 cm; Reflux: 0 ms At Knee: Not visualized Proximal Calf: 0.3 cm; Reflux: 1384 ms Mid Calf: 0.4 cm; Reflux: 1244 ms Distal Calf: 0.4 cm; Reflux: 0 ms DUPLICATED MEDIAL GREAT SAPHENOUS VEIN: Diameter: None imaged Reflux: NA DUPLICATED LATERAL GREAT SAPHENOUS VEIN: Diameter: 0.5 cm Reflux: None SMALL SAPHENOUS VEIN: Saphenopopliteal Junction: 0.5 cm; Reflux: 1536 ms Proximal: 0.5 cm; Reflux: 1112 ms Distal: 0.4 cm; Reflux: 1464 ms VEIN OF GIACOMINI: Size: NA Reflux: NA PERFORATORS: Location: Proximal calf Size: 0.1 to 0.2 cm Reflux: 1016 ms VARICOSITIES: Location: Proximal thigh of the residual great saphenous vein, posterior calf off the small saphenous vein Size: 0.2 to 0.3 cm Reflux: 1120 ms in the posterior calf US/US venous duplex LE BI IMPRESSION: 1. Right: The right great saphenous vein is not visualized in the mid thigh to the proximal calf consistent with prior ablation. There is a small residual great saphenous vein in the mid calf with mild reflux. Multiple varicosities arising from the residual great saphenous vein in the proximal thigh with reflux as described above. 2. Left: The left great saphenous vein is not visualized in the mid thigh to the knee consistent with prior ablation. Severe reflux in the small saphenous vein. Multiple varicosities arising from the residual great saphenous vein in the proximal thigh and posterior calf with reflux as described above. 3. Chronic wall adherent thrombus in the left popliteal vein. Mild to moderate diffuse deep venous reflux in the left lower extremity. Electronically signed by: Martin Carmona MD 08/24/2024 10:16 AM EDT
== END 2024-08-17 10:15 | disposition home or self-care (01) ==
LOC: HO.US 10:14
PROVIDERS: PCP Internal Medicine Geriatric Medicine; Visit Provider Surgery Vascular Surgery
DX: I83.11 Varicose veins of right lower extremity with inflammation (principal)
CPT/HCPCS: 93970

== ENCOUNTER 2024-09-18 09:47 | Outpatient (AMB) | payer OTHER, SELFPAY ==
[2024-09-18 09:52] VITALS: BP 132/76; BMI 37.9
--- NOTE | 2024-09-18 09:52 | A.OFFVIS_ITS ---
Vital Signs 09/18/24 09:52 Height 5 ft 10 in Weight 264 lb BMI 37.9 BP 132/76 Blood Pressure Location Rt brachial Position Sitting Intake Visit Reasons: Follow up [facility] 08/17/2024 Intake Note: Jose is a 69 year old male who presents to the office today for a follow up [facility] 08/17/24. Pt states he is still having swelling and discoloration in his left leg. Pt states on Tuesday his ulcer opened up on his left leg which has been having a yellow/bloody discharge. Pt states it is starting to become more painful. Pt states he has a vistiting nurse that comes everyday to change the bandage. Allergies Penicillins Allergy (Severe, Verified 09/18/24 09:52) COMA ibuprofen Allergy (Intermediate, Verified 09/18/24 09:52) HIVES/STOMACHE UPSET tramadol Allergy (Verified 09/18/24 09:52) Unknown HPI HPI Follow up [facility] 08/17/2024: Details: Jose, a pleasant 69-year-old male patient, is presenting today for follow-up to a bilateral lower extremity ultrasound for venous insufficiency, performed on 08/17. He states he continues with swelling of his bilateral lower extremities. He states he did have an ulceration open up on his left lower extremity last week. He states he has been doing his own wound care with the help of [facility] services for dressing changes daily. He has a significant vascular history including a DVT back in 2006 and 2007. He has also had a right lower extremity ablation in October of 2016 and a left lower leg ablation in June of 2015. He has trialed compression stockings, but states they are difficult to put on. He does elevate his legs when he is able to. [facility] Medical History Swelling of thigh Open wound of right thigh Venous ulcer of right leg Cellulitis Hyperlipidemia Hypertensive cardiovascular disease Obesity hypoventilation syndrome Morbid obesity due to excess calories Chronic venous stasis dermatitis of both lower extremities Hepatitis C Sleep apnea Narcotic addiction Osteoarthritis Pulmonary embolism DVT (deep venous thrombosis) Chronic back pain Surgical History History of surgery on lower extremity (06/10/23) History of incision and drainage History of repair of cleft lip History of arthroscopy of both knees Social History Household Members: Friend(s) Housing: Apartment Do you presently have visiting nurse or other home services: Yes Alcohol intake: current Alcohol intake frequency: 3 or more drinks per day Alcohol type: hard liquor Comment: pt to sss Patient Tobacco Use Status: Current everyday Tobacco user Tobacco use type: Cigarette Cigarette Packs Per Day: 1 Cigarettes Per Day: 20.0 Years Smoked: 30 e-Cigarette/Vaping Use: Currently Using Second Hand Smoke Exposure: No Substance Use Type: Marijuana Advance Directives Date on File: 03/30/23 service: No Current occupational status: disabled Review of Systems Const Reports as per HPI and Denies weakness ENT Reports Normal hearing present and Denies dizziness Card Reports as per HPI, Denies chest pain, Denies chest pain at rest, Denies chest pain with activity, Denies dyspnea and Denies dyspnea on exertion Resp Reports as per HPI, Denies cough, Denies dyspnea and Denies dyspnea on exertion GI Reports as per HPI, Denies abdominal pain, Denies nausea and Denies vomiting Musc Denies numbness Skin/Breast Reports as per HPI, Denies erythema and Denies wounds Neuro Reports Normal hearing present, Denies dizziness, Denies numbness, Denies Sensory deficit (Neuro) and Denies weakness Psych Reports no additional complaints Endo Reports no additional complaints Physical Exam Vital Signs: Last Vital Signs BP 132/76 09/18/24 09:52 BMI result Body Mass Index 37.9 Const General: healthy appearing and no acute distress Orientation/consciousness: patient oriented x3 HEENT Head: Yes normal to inspection Ears: hearing grossly normal bilaterally Mouth: Normal oral and palatal mucosa present Resp Effort & Inspection: normal respiratory effort and able to speak in complete sentences Auscultation: clear to auscultation bilaterally Cardio Jugular venous distension: no JVD Rate: regular rate Rhythm: regular rhythm Heart sounds: S1 normal heart sound present and S2 normal heart sound present Bruits: no abdominal aortic bruits, no carotid bruits, no femoral bruits and no renal bruits Peripheral pulses: Peripheral pulses 2+ throughout GI Inspection: Yes normal to inspection Palpation (GI): No Abdominal aortic bruit present Skin General skin exam: no rashes or lesions noted Wounds: no wounds Hair: normal Neuro General: patient oriented x3 Cranial nerves: Yes Normal hearing present Cognition (Neuro): normal cognition Gait exam (Neuro): Normal gait present Motor exam (neuro): 5/5 motor strength present throughout Sensory Exam: No Sensory deficit (Neuro) Extrem Other: Bilateral lower extremities: Discoloration noted from just below the knees to the feet. Palpable DP pulses. No weeping noted. Left lower extremity: Mid butcher wrapped in bandage and Kerlix did not take down due to patient just applying prior to arriving. No discharge or bleeding noted on the bandage Right in cm: Thigh 64 Knee 46 Calf 43 Ankle 27 Left in cm: Thigh 63 Knee 45 Calf 42 Ankle 27 Hip/waist 136.5 . General: Yes normal to inspection, Yes full ROM, Yes capillary refill normal and Yes normal gait Results Reviewed Results Reviewed: Brief summary of venous insufficiency testing is as follows: right great saphenous vein: negative; a lot not seen due to ablation right small saphenous vein: negative right accessory vein: none present left great saphenous vein: negative; not seen due to hx of ablation left small saphenous vein: negative left accessory vein: none present Please note there is no evidence of any venous aneurysms or significant tortuosity Assessment & Plan Assessment & Plan (1) Varicose veins of right lower extremity with inflammation: Code(s): I83.11 - Varicose veins of right lower extremity with inflammation Category: Medical Plan: Jose is presenting today as a follow up to his venous insufficiency ultrasound performed 08/17. There was no significant venous insufficiency or tortuosity is noted. Like this is due to lymphedema. He has had more than 6 months of trials with compression stockings, physical activity, and elevation with little relief of the swelling. We had a discussion about lymphedema and we believe he is a good candidate for the lymphedema compression pumps. We will schedule him for a lymphedema clinic on October 10. The patient is in agreement to this plan. He will continue with compression stockings and elevation. States he does have difficulty with walking due to how swollen his legs are. He does walk with a cane. If there are any questions or concerns, please do not hesitate to to reach out to our clinic. Coding Level of Care Code Established Pt Est Pt Level 4 (33238) Patient Type Established Diagnoses Varicose veins of right lower extremity with inflammation I83.11 Comment Review of venous insufficiency ultrasound
== END 2024-09-18 10:23 | disposition home or self-care (01) ==
PROVIDERS: PCP Internal Medicine Geriatric Medicine; Visit Provider Physician Assistant Surgical
DX: I83.11 Varicose veins of right lower extremity with inflammation (principal)
CPT/HCPCS: 99214

== ENCOUNTER → 2024-09-18 09:47 | Outpatient (BNVA) | payer OTHER, SELFPAY | PROVIDERS: PCP Internal Medicine Geriatric Medicine; Visit Provider Physician Assistant Surgical | DX: I83.11 Varicose veins of right lower extremity with inflammation (principal); F17.210 Nicotine dependence, cigarettes, uncomplicated | CPT/HCPCS: 99212 ==

== ENCOUNTER 2024-09-21 07:47 | Outpatient (REF) | payer OTHER, SELFPAY ==
--- NOTE | ~2024-09-21 | CT_ITS ---
EXAMINATION: CT FEMUR WITH CONTRAST, RIGHT CLINICAL INFORMATION: Other specific soft tissue disorders. COMPARISON: None available. TECHNIQUE: Multidetector volumetric imaging was obtained through the right femur following intravenous administration of 85 mL Omnipaque 350. Multiplanar reformatted images in coronal and sagittal orientations were submitted. This CT examination was performed using dose optimization techniques as appropriate, variously including the following: *Automated exposure control *Adjustment of mA and/or kV according to patient size (this includes techniques or standardized protocols for targeted exams where dose is matched to indication/reason for exam; i.e. extremities or head) *Use of iterative reconstruction technique DLP: 370 mGy-cm FINDINGS: There is psiu-wf-zuspessf osteoarthritis of the right hip with nonuniform joint space narrowing, marginal osteophytes, and subchondral cystic change. More mild osteoarthritis at the imaged portion of the pubic symphysis and right SI joint. No osseous lesions. No fractures. Mild osteoarthritis is present in the medial and patellofemoral compartments of the right knee. Right knee joint effusion or Trotter's cyst. There is subcutaneous fat stranding in the right thigh/femur laterally. No discrete fluid collections are identified on these images. No peripheral enhancing lesions are identified. Focal fatty replacement is present at the right quadriceps musculature centrally at the myotendinous junction, potentially the result of an old injury. No acute muscle injuries are identified. No subcutaneous gas. No significant CT findings of fasciitis. Atherosclerotic calcifications are present in the right femoral and popliteal arteries. No evidence of thrombosis on these images. Multiple prominent right inguinal lymph nodes are likely reactive a tear within normal limits for size criteria. No acute intrapelvic abnormalities CT/CT femur RT w IV con IMPRESSION: 1. Subcutaneous fat stranding in the right thigh/femur laterally, potentially due to cellulitis and underlying subcutaneous inflammation. No appreciable fluid collection or abscess. No evidence of fasciitis. 2. Ckgt-gz-zfedmisw osteoarthritis in the right hip. 3. Mild osteoarthritis in the medial and patellofemoral compartments of the right knee. Electronically signed by: Tl Renteria MD 09/30/2024 11:01 PM CARINE
[2024-09-21 11:51] LABS: Creatinine POC 1.3 mg/dL (0.5-1.4); GFR POC 57
== END 2024-09-21 07:48 | disposition home or self-care (01) ==
LOC: HO.CT 07:47
PROVIDERS: PCP Internal Medicine Geriatric Medicine; Visit Provider Surgery
DX: R60.0 Localized edema (principal)
CPT/HCPCS: 73701; 82565

== ENCOUNTER 2024-10-10 14:16 | Outpatient (AMB) | payer OTHER, SELFPAY ==
[2024-10-10 14:34] VITALS: BMI 23.5
--- NOTE | 2024-10-10 14:34 | A.OFFVIS_ITS ---
Vital Signs 10/10/24 14:34 Height 5 ft 10 in Weight 164 lb BMI 23.5 Intake Visit Reasons: Lymphedema clinic Intake Note: Lymphedema clinic for LE swelling. Pt states he has Left LE non-healing wounds and will be following up w/ woundcare Accompanied by: Self / Same As Patient Allergies Penicillins Allergy (Severe, Verified 10/10/24 14:36) COMA ibuprofen Allergy (Intermediate, Verified 10/10/24 14:36) HIVES/STOMACHE UPSET tramadol Allergy (Verified 10/10/24 14:36) Unknown HPI HPI Lymphedema clinic: Details: Jose is presenting today to the lymphedema clinic for ongoing increased bilateral lower extremity swelling/discomfort, L>R, with ongoing LLE ulcers that continue to open and weep. He did note today that he had lymphedema compression pumps in the past in 2019 but did not use them. He states he will be going to the wound care clinic at [facility] next week for the wound. He states at this point he is not sure if he wants to proceed with continuing with the lymphedema compression pumps. Karsten from [employer] has noted that he is not able to get new ones until January of 2025. [facility], [facility] Medical History Swelling of thigh Open wound of right thigh Venous ulcer of right leg Cellulitis Hyperlipidemia Hypertensive cardiovascular disease Obesity hypoventilation syndrome Morbid obesity due to excess calories Chronic venous stasis dermatitis of both lower extremities Hepatitis C Sleep apnea Narcotic addiction Osteoarthritis Pulmonary embolism DVT (deep venous thrombosis) Chronic back pain Surgical History History of surgery on lower extremity (06/10/23) History of incision and drainage History of repair of cleft lip History of arthroscopy of both knees Social History Household Members: Friend(s) Housing: Apartment Do you presently have visiting nurse or other home services: Yes Alcohol intake: current Alcohol intake frequency: 3 or more drinks per day Alcohol type: hard liquor Comment: pt to sss Patient Tobacco Use Status: Current everyday Tobacco user Tobacco use type: Cigarette Cigarette Packs Per Day: 1 Cigarettes Per Day: 20.0 Years Smoked: 30 e-Cigarette/Vaping Use: Currently Using Second Hand Smoke Exposure: No Substance Use Type: Marijuana Advance Directives Date on File: 03/30/23 service: No Current occupational status: disabled Review of Systems Const Reports as per HPI and Denies weakness ENT Reports Normal hearing present and Denies dizziness Card Reports as per HPI, Denies chest pain, Denies chest pain at rest, Denies chest pain with activity, Denies dyspnea and Denies dyspnea on exertion Resp Reports as per HPI, Denies cough, Denies dyspnea and Denies dyspnea on exertion GI Reports as per HPI, Denies abdominal pain, Denies nausea and Denies vomiting Musc Denies numbness Skin/Breast Reports as per HPI, Denies erythema and Denies wounds Neuro Reports Normal hearing present, Denies dizziness, Denies numbness, Denies Sensory deficit (Neuro) and Denies weakness Psych Reports no additional complaints Endo Reports no additional complaints Physical Exam Vital Signs: BMI result Body Mass Index 23.5 Const General: healthy appearing and no acute distress Orientation/consciousness: patient oriented x3 HEENT Head: Yes normal to inspection Ears: hearing grossly normal bilaterally Mouth: Normal oral and palatal mucosa present Resp Effort & Inspection: normal respiratory effort and able to speak in complete sentences Auscultation: clear to auscultation bilaterally Cardio Jugular venous distension: no JVD Rate: regular rate Rhythm: regular rhythm Heart sounds: S1 normal heart sound present and S2 normal heart sound present Bruits: no abdominal aortic bruits, no carotid bruits, no femoral bruits and no renal bruits Peripheral pulses: Peripheral pulses 2+ throughout GI Inspection: Yes normal to inspection Palpation (GI): No Abdominal aortic bruit present Skin General skin exam: no rashes or lesions noted Wounds: no wounds Hair: normal Neuro General: patient oriented x3 Cranial nerves: Yes Normal hearing present Cognition (Neuro): normal cognition Gait exam (Neuro): Normal gait present Motor exam (neuro): 5/5 motor strength present throughout Sensory Exam: No Sensory deficit (Neuro) Extrem Other: +2 peripheral edema noted bilaterally. LLE: wound weeping through the bandage; we did not take the bandage down General: Yes normal to inspection, Yes full ROM, Yes capillary refill normal and Yes normal gait Assessment & Plan Assessment & Plan (1) Lymphedema due to chronic inflammation: Code(s): I89.0 - Lymphedema, not elsewhere classified Category: Medical Plan: Jose is presenting today to the lymphedema Clinic with Karsten [facility]. He states he has had lymphedema compression pumps before, in 2019, and states they do not work and he threw the pumps away. We had a lengthy discussion with Jose that he would be eligible for a new pumps in January of 2025, per insurance protocols. We discussed that utilizing the compression pumps would be good for his on going peripheral edema as well as ulcers on his left lower extremity that continue to open and weep. We discussed that you can use the pumps over the wounds, and this may help with the healing process. We discussed continuing with compression stockings and elevation as well. The patient will think about coming back in January for further measurements and discussion about obtaining new compression pumps; however Karsten and Dami both discussed that this is not equipment then he can just throw away/not use and we think that this would be very beneficial for him. The patient will think about it and get back to us. Karsten also stated that he will reach out with the patient before January clinic to see if he will attend. We will follow up with the patient as needed. We discussed him continue with the wound care clinic. If there are any questions or concerns, please do not hesitate to reach out to us. Coding Level of Care Code Est Pt Level 4 (10525) Diagnoses Lymphedema due to chronic inflammation I89.0 Comment Lymphedema clinic, discussion of treatment plan
--- OUTSIDE RECORDS SUMMARY | 2024-10-16 20:46 | XMS_ITS | Data Portability ---
Author Organization [facility] [employer] [place] - [facility] Address [address] [place] [phone] Care Team Providers Care Technology Coach Name Role Phone [facility] Referring Provider Assessment No assessment recorded. Plan of Treatment Reminders Order Date Submit Date Provider Last Modified By Organization Details Last Modified Time Details Appointments None recorded. Lab BMP, serum or plasma 2022 023 [facility], [address] [place] [address], [id number], 3 19:02:32 hemoglobin + hematocrit, blood 2022 023 [facility], [address] [place] [address], [phone], 3 19:02:01 Referral None recorded. Procedures None recorded. Surgeries None recorded. Imaging None recorded. Medication Orders Solu-Medrol (PF) 125 mg/2 mL solution for injection 2022 023 [email or web address] Not available 17:00:50 Patient TargetsNo targets recorded. Patient InstructionsNo instructions recorded. Reason for Referral None Reported. Results Created Date Observation Date Name Description Value Unit Range Abnormal Flag Note LastModifiedBy Organization Detail LastModifiedTime Result Notes None recorded. Medical Equipment None Reported. Medications Name Sig Start Date Stop Date Status Note LastModified by Organization Details LastModified Time Santyl 250 unit/gram topical ointment APPLY NICKEL THICK LAYER TO WOUND COVERED WITH SALINE MOISTENED GAUZE, CHANGE DAILY active Not Available Not Available No t Available ammonium lactate 12 % lotion APPLY TO AFFECTED AREA ON LEFT LEG TWICE A DAY active Not Available Not Available No t Available Vitamin C 500 mg tablet TAKE 1 TABLET BY MOUTH TWICE A DAY active Not Available Not Available No t Available warfarin 3 mg tablet TAKE 2 TO 2.5 TABLETS BY MOUTH ONCE A DAY DIRECTED BY [facility] active Not Available Not Available No t Available Vitamins B Complex tablet TAKE 1 CAPSULE BY MOUTH EVERY DAY active Not Available Not Available No t Available betamethasone dipropionate 0.05 % topical cream APPLY SPARINGLY TO PERIWOUND REDNESS WITH DRESSING CHANGES DIRECTED. active Not Available Not Available No t Available ammonium lactate 12 % topical cream APPLY TOPICALLY TO AFFECTED AREA DAILY AT BEDTIME. RUB IN WELL TO LOWER LEGS active Not Available Not Available N ot Available furosemide 20 mg tablet TAKE 1 TABLET BY MOUTH TWICE A DAY active Not Available Not Available No t Available lisinopril 40 mg tablet TAKE 1 TABLET BY MOUTH EVERY DAY active Not Available Not Available No t Available verapamil ER 120 mg 24 hr capsule,exten ded release TAKE 1 CAPSULE BY MOUTH EVERY DAY FOR 30 DAYS active Not Available Not Available No t Available rosuvastatin 10 mg tablet TAKE 1 TABLET BY MOUTH EVERY DAY active Not Available Not Available No t Available vitamin B complex-folic acid 0.4 mg tablet TAKE 1 TABLET BY MOUTH EVERY DAY active Not Available Not Available No t Available cholecalcifer ol (vitamin D3) 50 mcg (2,000 unit) capsule active Not Available Not Available Not Available cholecalcifer ol (vitamin D3) 50 mcg (2,000 unit) tablet TAKE 1 TABLET BY MOUTH EVERY DAY active Not Available Not Available No t Available Complex B-100 400 mcg tablet,extend ed release active Not Available Not Available N ot Available Senexon-S 8.6 mg-50 mg tablet TAKE 1 TO 2 TABLETS BY MOUTH EVERY DAY NEEDED active Not Available Not Available No t Available omega 5-pdt-ool-fis h oil 1,000 mg (120 mg-180 mg) capsule TAKE 1 CAPSULE BY MOUTH EVERY DAY FOR 90 DAYS active Not Available Not Available No t Available Wixela Inhub 250 mcg-50 mcg/dose powder for inhalation INHALE 1 PUFF BY MOUTH TWICE A DAY FOR 30 DAYS active Not Available Not Available No t Available Smart Heart Rawlings-3 115 mg-172 mg-1,000 mg capsule,delay ed release TAKE 1 CAPSULE BY MOUTH EVERY DAY FOR 90 DAYS active Not Available Not Available No t Available Vitals Date Recorded Oxygen saturation Oxygen saturation in Arterial blood by Pulse oximetry Respiratory rate Heart rate Body temperature Body weight Systolic blood pressure Diastolic blood pressure Provider Name and Address Organization Details Last Updated DateTime 3 97 % 97 % 16 /min 89 /min 100.5 [degF] 988707. 56 g 152 mm[Hg] 88 mm[Hg] Not Available [facility] - production 16:35:33 Social History None recorded. Functional Status None recorded. Mental Status None recorded. Family History Nothing Reported. Medical History No medical history recorded. Past Encounters Encounter ID Performer Location Encounter Start Date Encounter Closed Date Diagnosis/Indication Diagnosis SNOMED-CT Code Diagnosis ICD10 Code [id number] Sushma Chowdhury MD [facility] [address] [place] [phone] 01/03/2023 16:35:25 01/05/2023 12:30:31 Adverse reaction to drug [id number] T50.905A Health Concerns Section Related Observation LastModified by Organization Detai ls LastModified Time None Recorded Concern Status LastModified by Organization Details LastModified Time None Recorded Advance Directives Directive None Recorded Payers Encounter Date Sequence Insurance Name Policy Number Policy Bull Covered Member ID Bull Member ID Guarantor Name 01/03/2023 1 [facility] - DOS PRIOR TO 2023 - DUAL ELIGIBLE (MEDICARE REPLACEMENT/ADV ANTAGE - HMO) Jose Naidu [id number] Jose Naidu Notes Date Note Type Note Provider Name and Address Organization Details Recorded Time 01/03/2023 text/html HPI: 67 y/o male who called to PCP office last week with reports of bilateral hand/arm rash. At the time last week patient declined visit but follow up call today indicated that patients rash is worse and he is now experiencing bilateral hand edema R>L. Patient reports rash remains from hands to shoulder and has not traveled anywhere else on his body. .................. .................. .................. .................. .................. .................. .................. ............... CRC Nursing Assessment: Comments: CRC RN DID NOT NEED FURTHER INFO [facility] HPI:worsening rash, 2/ switched from lisinopril to verapamil. not on any other medications. Sushma Chowdhury MD [address] [facility],[address], [place], [phone], [employer], ANGEL 01/03/2023 17:11:17
--- OUTSIDE RECORDS SUMMARY | 2024-10-16 20:46 | XMS_ITS | Data Portability ---
Author Organization [facility] [employer] [facility], Main Office Address [address] [place] [address] Care Team Providers Care Stone Circular Sawyer Name Role Phone [facility] OTHER MYRNA MARTINS Primary Care Provider [phone] Assessment Encounter Date Assessment Date Assessment LastModified by Organization Details LastModified Time 04/18/2023 04/18/2023 04/08/23 wbc 6.5, hgb 10.4, plt 302, na 134, k 3.6, creat 0.9 [email or web address] Not available 04/18/2023 10:43:36 Plan of Treatment Reminders Order Date Submit Date Provider Last Modified By Organization Details Last Modified Time Details Appointments None record ed. Lab None record ed. Referral None record ed. Procedures None record ed. Surgeries None record ed. Imaging None record ed. Medication Orders None record ed. Patient TargetsNo targets recorded. Patient InstructionsNo instructions recorded. Reason for Referral None Reported. Problems Name Problem SNOMED Code Status Onset Date Resolution Date Notes Provider Name and Address Organization Details Recorded Time Sepsis 34107975 Active 2022 Jeremy Arias MD [address] [facility], [facility] [address], [place], [address], [facility] 3 11:09:05 Venous stasis ulcer with edema of right lower leg 3868242399600 9106 Active 2022 Jeremy Arias MD [address] [facility], [address], [place], [address], [facility] 3 11:09:19 Chronic acquired lymphedema 61818929 Active 2022 Jeremy Arias MD [address] [facility], [address], [place], [address], [place] [facility] 3 11:09:34 Essential hypertensio n 30918251 Active 2022 Jeremy Arias MD [address], [address], [place], [address], [facility] 3 11:10:28 Opioid dependence 82057938 Active 2022 Jeremy Arias MD [address], [address], [place], [address], [facility] - [facility] 3 11:10:38 Chronic hepatitis C 674551608 Active 2022 Jeremy Arias MD [address], [address], [place], [address], [place] - [facility] 3 11:10:47 Peripheral vascular disease 975688225 Active 2022 Jeremy Arias MD [address], [address], [place], [address], [facility] - [facility] 3 11:10:52 Chronic obstructive pulmonary disease 31355734 Active 2022 Jeremy Arias MD [address], [address], [place], [address], [facility] - [facility] 3 11:10:56 Morbid obesity 328637326 Active 2022 Jeremy Arias MD [address], [address], [place], [address], [facility] - [facility] 3 11:11:04 Alcoholism 1947084 Active 2022 Jeremy Arias MD [address], [address], [place], [address], [facility] - [facility] 3 11:30:31 Tobacco user 296382782 Active 2022 Jeremy Arias MD [address], [address], [place], [address], [facility] - [facility] 3 11:30:37 History of intravenous drug abuse 2528264307889 9103 Active 2022 Jeremy Arias MD [address], [address], [place], [address], [facility] 3 11:30:43 Problem Notes None recorded. Medical Equipment None Reported. Allergies Allergen ID Allergen Name Allergen Category Reaction Reaction Severity Criticality Documentation Date Start Date Code Code System Note Provider Name and Address Organization Details Recorded Time 74777 Medicinal product containin g penicilli n and acting as antibacte rial agent (product) medicatio n anaphylax is Not available Not available 03/30/2023 67085 05 SNOMED Jeremy Arais MD [address] [place] [address], [address], [place], [address], [facility] 3 11:08:33 40143 ibuprofen medicatio n Not available Not available Not available 03/30/2023 5640 RxNorm Jeremy Arias MD [address] [place] [address], [address], [place], [address], [facility] 3 11:08:40 28228 tramadol medicatio n Not available Not available Not available 03/30/2023 17328 RxLeatharm Jeremy Arias MD [address] [place] [address], [address], [place], [address], [facility] 3 11:08:45 Medications Not known to be on any medication Vitals Date Recorded Systolic blood pressure Diastolic blood pressure Provider Name and Address Organization Details Last Updated DateTime 04/01/2023 128 mm[Hg] 73 mm[Hg] Jeremy Arias MD [address] [place] [address], [address], [place], [address], [facility] 04/01/2023 12:49:11 Date Recorded Systolic blood pressure Diastolic blood pressure Provider Name and Address Organization Details Last Updated DateTime 04/06/2023 122 mm[Hg] 58 mm[Hg] Jeremy Arias MD [address] [place] [address], [address], [place], [address], [facility] 04/06/2023 15:56:03 Social History Question Answer Notes LastModified by Organizat ion Details LastModified Time Tobacco Smoking Status Current Every Day Smoker Jeremy Arias MD [address] [place] [address], [address], [place], [address], [facility] 03/30/2023 11:32:48 Do You Have An Advance Directive? Yes Information not available 04/01/2023 What Is Your Level Of Alcohol Consumption? Heavy Information not available 03/30/2023 What Is Your Code Status? Full Code [email or web address] Information not available 03/30/2023 How Much Tobacco Do You Smoke? 1 PPD Information not available 03/30/2023 Sex: Unknown Functional Status None recorded. Mental Status None recorded. Family History Nothing Reported Notes:N/C Medical History No medical history recorded. Immunizations Vaccine Type Date Status Provider Name and Address Organization Details Recorded Time COVID-19, mRNA, LNP-S, bivalent, PF, 50 mcg/0.5 mL or 25mcg/0.25 mL dose 10/24/2022 completed Alena modi [facility] 11/09/2023 09:50:46 Influenza, adjuvanted, quadrivalent, PF 09/24/2022 completed Alena modi [facility] 11/09/2023 09:51:57 Pneumococcal conjugate PCV 13 06/18[facility]2022 [facility]23 09:53:31 pneumococcal polysaccharide PPV23 09/02/2023 [facility]/02/2024 13:30:47 Influenza, adjuvanted, quadrivalent, PF 09/02/2023 completed Alena modi [facility] 02/02/2024 13:30:58 zoster recombinant 12/20/2022 completed Alena modi [facility] 02/02/2024 13:31:14 zoster recombinant 05/19/2023 [facility]24 13:31:18 Past Encounters Encounter ID Performer Location Encounter Start Date Encounter Closed Date Diagnosis/Indication Diagnosis SNOMED-CT Code Diagnosis ICD10 Code [id number] Jeremy Arias MD [facility] on [address] [place] [address] 03/30/2023 11:00:34 04/06/2023 10:45:49 Acute kidney injury 26901187 N17.8 Cellulitis of right lower limb 6918944311 3048161 L03.115 Sepsis 60003999 A41.89 Venous sta sis ulcer with edema of right lower leg 2300556328 3718339 L97.918 Chronic ac quired lymphedema 96852075 I89.0 Essential hypertension 20643909 I10 Opioid dependence 748302 00 F11.20 Chronic hepatitis C 1283 51413 B18.2 Peripheral vascular disease 704201863 I73.89 Chronic ob structive pulmonary disease 05563475 J41.1 Morbid obesity 267133547 E66.01 Alcoholism 4461586 F10.2 0 Tobacco user 301795831 Z 72.0 History of intravenous drug abuse 2119156160 5635354 F19.11 [id number] Jeremy Arias MD [facility] on [address] [place] [address] 04/01/2023 12:48:46 04/06/2023 12:19:53 Advance care planning 155223366 Z71.89 Sepsis 46273635 A41.89 Opioid dependence 892957 00 F11.20 History of intravenous drug abuse 2620130893 1340421 F19.11 [id number] Jeremy Arias MD [facility] on [address] [place] [address] 04/06/2023 15:55:29 04/13/2023 10:48:33 Sepsis 31570724 A41.89 Cellulitis of right lower limb 8842637890 8254427 L03.115 Acute kidney injury 1466 9001 N17.8 Venous sta sis ulcer with edema of right lower leg 5132362527 6231120 L97.918 Essential hypertension 13758501 I10 Tobacco user 577748134 Z 72.0 [id number] Jeremy Arias MD [facility] on [address] [place] [phone] 04/12/2023 12:13:31 04/18/2023 15:22:50 Sepsis 21893118 A41.89 Acute kidney injury 1466 9001 N17.8 Chronic ac quired lymphedema 63684879 I89.0 Essential hypertension 47732391 I10 Opioid dependence 292616 00 F11.20 Peripheral vascular disease 792191302 I73.89 [id number] Jeremy Arias MD [facility] on [address] [place] [address] 04/15/2023 15:37:36 04/19/2023 09:14:39 Essential hypertension 35179697 I10 Acute kidney injury 1466 9001 N17.8 Venous sta sis ulcer with edema of right lower leg 0534998704 1677635 L97.918 Opioid dependence 470344 00 F11.20 Peripheral vascular disease 191415152 I73.89 [id number] EVELYN Faustin [facility] on [address] [place] [address] 04/18/2023 08:08:35 04/20/2023 10:57:18 Essential hypertension 20152258 I10 Acute kidney injury 1466 9001 N17.8 Venous sta sis ulcer with edema of right lower leg 7278251720 3182345 L97.918 Opioid dependence 628252 00 F11.20 Peripheral vascular disease 599699694 I73.89 Sepsis 53887752 A41.89 Chronic ac quired lymphedema 09686926 I89.0 Health Concerns Section Related Observation LastModified by Organization Detai ls LastModified Time None Recorded Concern Status LastModified by Organization Details LastModified Time None Recorded Advance Directives Directive Y: Payers Encounter Date Sequence Insurance Name Policy Number Policy Bull Covered Member ID Bull Member ID Guarantor Name 04/01/2023 1 [employer] - DOS ON OR AFTER 2023 - MEDICARE [place]/ADV ANTAGE - PPO) Jose Naidu [id number] Jose Naidu 04/06/2023 1 [employer] - DOS ON OR AFTER 2023 - [place]V [place] - [place]PO) Jose Naidu [id number] Jose Naidu 04/12/2023 1 [employer] - DOS ON OR AFTER 2023 - [place]V [place] - [place]PO) Jose Naidu [id number] Jose Naidu 04/15/2023 1 [employer] - DOS ON OR AFTER 2023 - [place]V ANTAGE - PPO) Jose Naidu [id number] Jose Naidu 04/18/[address] [facility] - DOS ON OR AFTER 2023 - [place] RE[place]/ADV ANTAGE - PPO) Jose Elysia [id number] Jose Naidu Notes Date Note Type Note Provider Name and Address Organization Details Recorded Time 04/01/2023 text/html Patient is a 68 yo male resident seen for acute rounding. Patient was initially admit from hospital after presenting with 1 week increase in pain, swelling, erythema RLE. Patient with chronic venous stasis ulcer followed by wound clinic debrided prior to sx. Found to be in ARF with leukocytosis. Dx with severe sepsis due to RLE cellulitis. Initially started on IV ancef. Eval by ID and changed to keflex on discharge. Eval by surgery followed outpatient at [facility] wound clinic. ARF improved with fluids. Patient was hypotensive and with ARF lisinopril was held to re-evaluate in 1 week. Currently patient complaining of poor pain control Jeremy Arias MD [address] [place] [address], [facility] [address], [place], [address], [facility] 04/01/2023 12:56:53 04/06/2023 text/html Patient is a 68 yo male resident seen for acute rounding. Patient was initially admit from hospital after presenting with 1 week increase in pain, swelling, erythema RLE. Patient with chronic venous stasis ulcer followed by wound clinic debrided prior to sx. Found to be in ARF with leukocytosis. Dx with severe sepsis due to RLE cellulitis. Initially started on IV ancef. Eval by ID and changed to keflex on discharge. Eval by surgery followed outpatient at [facility] wound clinic. ARF improved with fluids. Patient was hypotensive and with ARF lisinopril was held to re-evaluate in 1 week. Of note patient labs not drawn at facility to this point Jeremy Arias MD [address] [facility], [address], [place], [address], [facility] 04/06/2023 16:00:26 04/12/2023 text/html Patient is a 68 yo male resident seen for acute rounding. Patient was initially admit from hospital after presenting with 1 week increase in pain, swelling, erythema RLE. Patient with chronic venous stasis ulcer followed by wound clinic debrided prior to sx. Found to be in ARF with leukocytosis. Dx with severe sepsis due to RLE cellulitis. Initially started on IV ancef. Eval by ID and changed to keflex on discharge. Eval by surgery followed outpatient at [facility] wound clinic. ARF improved with fluids. Patient has now completed keflex. INR elevated yesterday required Vit K. Jeremy Arias MD [address] [place] [address], [address], [place], [address], [facility] [facility] 04/12/2023 12:24:30 04/15/2023 text/html Patient is a 68 yo male resident seen for acute rounding. Patient was initially admit from hospital after presenting with 1 week increase in pain, swelling, erythema RLE. Patient with chronic venous stasis ulcer followed by wound clinic debrided prior to sx. Found to be in ARF with leukocytosis. Dx with severe sepsis due to RLE cellulitis. Initially started on IV ancef. Eval by ID and changed to keflex on discharge. Eval by surgery followed outpatient at [facility] wound clinic. Patient has completed Ab. Continues to improve now ambulating independent without walker Jeremy Arias MD [address] [place] [address], [address], [place], [address], [facility] [employer] [facility] 04/15/2023 15:43:26 04/18/2023 text/html 68 yo male resident seen for discharge summary. pt is doing well, is ready to discharge home today. received his last dose of methadone 135 mg this morning. pt has been treated for right upper thigh cellulitis, finished keflex. pt is followed by wound clinic. had an elevated INR last week of 6.3 on 04/11, received Vit K 5 mg po x 1 dose, INR 1.7 on 04/12 and 1.5 on 04/13. had INR drawn this am. currently on 5 mg qd. pt is independent with mobility. is followed by [facility]. Patient was initially admit from hospital after presenting with 1 week increase in pain, swelling, erythema RLE. Patient with chronic venous stasis ulcer followed by wound clinic debrided prior to sx. Found to be in ARF with leukocytosis. Dx with severe sepsis due to RLE cellulitis. Initially started on IV ancef. Eval by ID and changed to keflex on discharge. Eval by surgery followed outpatient at [facility] wound clinic. Patient has completed Ab. Continues to improve now ambulating independent without walker EVELYN Faustin [address] [place] [address], [address], [place], [address], [facility] 04/18/2023 10:59:00
== END 2024-10-10 15:09 | disposition home or self-care (01) ==
PROVIDERS: PCP Internal Medicine Geriatric Medicine; Visit Provider Physician Assistant Surgical
DX: I89.0 Lymphedema, not elsewhere classified (principal)
CPT/HCPCS: 99214

== ENCOUNTER → 2024-10-10 14:16 | Outpatient (BNVA) | payer OTHER, SELFPAY | PROVIDERS: PCP Internal Medicine Geriatric Medicine; Visit Provider Physician Assistant Surgical | DX: I89.0 Lymphedema, not elsewhere classified (principal) | CPT/HCPCS: 99212 ==

== ENCOUNTER 2024-10-11 09:51 | Outpatient (AMB) | payer OTHER, SELFPAY ==
--- NOTE | 2024-10-11 10:02 | A.OFFVIS_ITS ---
Vital Signs 10/11/24 10:19 Height 5 ft 10 in Weight 274 lb BMI 39.3 BP 139/67 Blood Pressure Location Rt brachial Position Sitting Pulse 89 Intake Visit Reasons: s/p CT femur Intake Note: This patient presents for follow-up for Ct-Scan femur results. Pt c/o; reports no complaints at this time. Slip Injector And Applicator Required: No Accompanied by: Self / Same As Patient Allergies Penicillins Allergy (Severe, Verified 10/11/24 10:20) COMA ibuprofen Allergy (Intermediate, Verified 10/11/24 10:20) HIVES/STOMACHE UPSET tramadol Allergy (Verified 10/11/24 10:20) Unknown Medication List - Last Reconciled 10/11/24 by Olaf Colindres MD ascorbic acid (vitamin C) (Vitamin C) 1 tab PO BID cholecalciferol (vitamin D3) 50 mcg PO DAILY fluticasone propion-salmeterol 250-50 mcg/dose (Wixela Inhub) 1 ea inhalation BID furosemide 1 tab PO BID lisinopril 1 tab PO DAILY methadone 135 mg PO DAILY nicotine 21 mg transdermal DAILY omega 6-aev-bjd-fish oil 1,000 (120-180) mg 1 cap PO DAILY rosuvastatin 1 tab PO DAILY sennosides-docusate sodium 8.6-50 mg (Stool Softener-Stimulant Laxative) 1 tab PO BID [sterile gauze 4x4 As directed] [tape 1 inch As directed] verapamil ER 120 mg PO DAILY vitamin B complex-folic acid 400 mcg ER (Complex B-100) 1 tab PO DAILY walker As directed warfarin 6 mg PO SUTUWETHFRSA@1800 warfarin 4.5 mg PO MO@1800 HPI HPI s/p CT femur: Details: He is here for follow-up for his open wound in the right thigh. This has actually improved significantly after he had multiple debridement the past 2 years He denies any complaints with this right now. He says that this seems to have completely healed I had sent him for a CT scan previously to follow up on this but he says that this has now healed. He denies any discharge or any pain or discomfort. [facility] Medical History Swelling of thigh Open wound of right thigh Venous ulcer of right leg Cellulitis Hyperlipidemia Hypertensive cardiovascular disease Obesity hypoventilation syndrome Morbid obesity due to excess calories Chronic venous stasis dermatitis of both lower extremities Hepatitis C Sleep apnea Narcotic addiction Osteoarthritis Pulmonary embolism DVT (deep venous thrombosis) Chronic back pain Surgical History History of surgery on lower extremity (06/10/23) History of incision and drainage History of repair of cleft lip History of arthroscopy of both knees Social History Household Members: Friend(s) Housing: Apartment Do you presently have visiting nurse or other home services: Yes Alcohol intake: current Alcohol intake frequency: 3 or more drinks per day Alcohol type: hard liquor Comment: pt to sss Patient Tobacco Use Status: Current everyday Tobacco user Tobacco use type: Cigarette Cigarette Packs Per Day: 1 Cigarettes Per Day: 20.0 Years Smoked: 30 e-Cigarette/Vaping Use: Currently Using Second Hand Smoke Exposure: No Substance Use Type: Marijuana Advance Directives Date on File: 03/30/23 service: No Current occupational status: disabled Review of Systems Const Denies chills and Denies fever(s) Card Denies chest pain at rest and Reports dyspnea on exertion Resp Reports dyspnea on exertion GI Denies abdominal pain Denies difficulty urinating Musc Reports abnormal gait, Reports back pain and Reports arthralgias Neuro Reports abnormal gait Physical Exam Vital Signs: Last Vital Signs Pulse 89 10/11/24 10:19 BP 139/67 10/11/24 10:19 BMI result Body Mass Index 39.3 Const Other: Walks with a cane, obese General: comfortable and no acute distress Nutritional Appearance: obese Resp Effort & Inspection: normal respiratory effort Cardio Rate: regular rate GI Palpation (GI): Soft to palpation Extrem Other: No residual open wound on the thigh lateral aspect, no induration, no redness, no tenderness, no fluctuance Assessment & Plan Assessment & Plan (1) Open wound of right thigh: Code(s): S71.101A - Unspecified open wound, right thigh, initial encounter Category: Medical Plan: This has now completely healed. There is no drainage or any skin defect. His CAT scan shows subcutaneous fat stranding in the area without any fluid collection Clinically he looks very well. He can therefore follow up on a p.r.n. basis. He does have multiple medical problems and had advised him to make sure it continues to follow up with his primary care physician. Coding Level of Care Code Est Pt Level 3 (36997) Diagnoses Open wound of right thigh S71.101A
[2024-10-11 10:19] VITALS: BP 139/67; PULSE 89; BMI 39.3
== END 2024-10-11 10:26 | disposition home or self-care (01) ==
PROVIDERS: PCP Internal Medicine Geriatric Medicine; Visit Provider Surgery
DX: S71.101A Unspecified open wound, right thigh, initial encounter (principal)
CPT/HCPCS: 99213

== ENCOUNTER → 2024-10-11 09:51 | Outpatient (BNVA) | payer OTHER, SELFPAY | PROVIDERS: PCP Internal Medicine Geriatric Medicine; Visit Provider Surgery | DX: S71.101D Unspecified open wound, right thigh, subsequent encounter (principal); X58.XXXD Exposure to other specified factors, subsequent encounter | CPT/HCPCS: 99212 ==

== ENCOUNTER 2024-11-22 08:30 | Outpatient (RCR) | payer OTHER, SELFPAY | END 2024-12-31 13:52 | disposition home or self-care (01) | LOC: HO.WCC 08:30 | PROVIDERS: Visit Provider Surgery | DX: I87.312 Chronic venous hypertension (idiopathic) with ulcer of left lower extremity (principal); L97.822 Non-pressure chronic ulcer of other part of left lower leg with fat layer exposed; M25.562 Pain in left knee | CPT/HCPCS: 11042; 11045; 97597; 97598; 99212 ==

== ENCOUNTER 2025-06-04 10:18 | Outpatient (AMB) | payer OTHER, SELFPAY ==
--- NOTE | 2025-06-04 10:38 | HO.NEPHOV ---
Vital Signs 06/04/25 10:42 Height 5 ft 10 in Weight 265 lb 6 oz BMI 38.1 BP 90/50 L Blood Pressure Location Lt brachial Position Sitting Pulse 93 Pulse Source Pulse Oximeter Pulse Oximetry (%) 92 Oxygen Delivery Method Room Air Intake Visit Reasons: ENP: CKD [id number] Steelscope Operator Required: No Accompanied by: Self / Same As Patient Allergies Penicillins Allergy (Severe, Verified 06/04/25 10:41) COMA ibuprofen Allergy (Intermediate, Verified 06/04/25 10:41) HIVES/STOMACHE UPSET tramadol Allergy (Verified 06/04/25 10:41) Unknown HPI Comments Details: I had the pleasure of seeing Jose in consultation for chronic kidney disease and hypertension. He has been having CKD for some time but lately his serum creatinine has gotten worse. He has history of peripheral arterial disease, carotid stenosis as well as hypertension. He is on SHANNON inhibitor. He denies being diabetic. He has history of drug use and is currently on methadone. He has history of renal calculi. He denies coronary artery disease, CVA, congestive heart failure, excessive nonsteroidal anti-inflammatory medication use, hypercalcemia, new bone or back pain, epistaxis, sinusitis, photosensitivity, joint swellings, hematuria or any urinary symptoms. He has no history of any active malignancy. His blood pressure is fairly well controlled on current medications. He denies nausea, vomiting, diarrhea, chest pain, paroxysmal nocturnal dyspnea, orthopnea or orthostatic symptoms. He has history of hepatitis which has been treated and is currently deemed as being cured. He has good urine output. He is closely followed by his PCP. [facility] Medical History (Updated 06/08/25 @ 14:41 by Ck Hanson MD) Inguinal hernia COPD (chronic obstructive pulmonary disease) Venous stasis ulcer of lower extremity Chronic venous insufficiency Peripheral vascular disease Bipolar disorder DDD (degenerative disc disease), lumbar Swelling of thigh Open wound of right thigh Venous ulcer of right leg Cellulitis Hyperlipidemia Hypertensive cardiovascular disease Obesity hypoventilation syndrome Morbid obesity due to excess calories Chronic venous stasis dermatitis of both lower extremities Hepatitis C Sleep apnea Narcotic addiction Osteoarthritis Pulmonary embolism DVT (deep venous thrombosis) Chronic back pain Surgical History Status post endovenous radiofrequency ablation of saphenous vein History of surgery on lower extremity (06/10/23) History of incision and drainage History of repair of cleft lip History of arthroscopy of both knees Social History Household Members: Friend(s) Housing: Apartment Do you presently have visiting nurse or other home services: Yes Alcohol intake: current Alcohol intake frequency: 3 or more drinks per day Alcohol type: hard liquor Comment: pt to sss Patient Tobacco Use Status: Current everyday Tobacco user Tobacco use type: Cigarette Cigarette Packs Per Day: 1 Cigarettes Per Day: 20.0 Years Smoked: 30 e-Cigarette/Vaping Use: Currently Using Second Hand Smoke Exposure: No Substance Use Type: Marijuana Advance Directives Date on File: 03/30/23 service: No Current occupational status: disabled Review of Systems Const All systems reviewed & are unremarkable except as noted in HPI and below Physical Exam Vital Signs: Last Vital Signs Pulse 93 06/04/25 10:42 BP 90/50 L 06/04/25 10:42 Pulse Ox 92 06/04/25 10:42 Oxygen Delivery Method Room Air 06/04/25 10:42 BMI result Body Mass Index 38.1 Const General: comfortable and no acute distress Orientation/consciousness: patient oriented x3 HEENT Head: Yes normocephalic Mouth: Normal oral and palatal mucosa present Eyes EOM: EOMs intact bilaterally Neck Neck: Yes supple Resp Auscultation: clear to auscultation bilaterally Cardio Jugular venous distension: no JVD Rate: regular rate GI Palpation (GI): Soft to palpation Auscultation: normal bowel sounds General: Yes no CVA tenderness Back/Spine/Pelvis Back: no CVA tenderness Skin General skin exam: no rashes or lesions noted Neuro General: patient oriented x3 and moves all extremities Extrem General: Yes no pedal edema Assessment & Plan Assessment & Plan (1) CKD stage 3b, GFR 30-44 ml/min: Code(s): N18.32 - Chronic kidney disease, stage 3b Category: Medical (2) Anemia due to chronic kidney disease: Code(s): N18.9 - Chronic kidney disease, unspecified; D63.1 - Anemia in chronic kidney disease Category: Medical Qualifiers: Chronic kidney disease stage: stage 3 (moderate) Chronic kidney disease stage 3 subtype: stage 3b (GFR 30-44) Qualified Code(s): N18.32 - Chronic kidney disease, stage 3b; D63.1 - Anemia in chronic kidney disease (3) Hypertension: Code(s): I10 - Essential (primary) hypertension Category: Medical Qualifiers: Hypertension type: primary hypertension Qualified Code(s): I10 - Essential (primary) hypertension Plan Jose has CKD which has been progressive. His current GFR put him in CKD stage III B category. He is on SHANNON inhibitor. He is not on any SGLT2 inhibitor. He has carotid artery stenosis as well as PAD. He may be having renal artery stenosis. I have ordered extensive workup including imaging studies, blood work and urine studies. I shall determine whether he needs any further workup including renal biopsy based on evolving data. His blood pressure is currently at goal. I plan to start him on low-dose Jardiance at the next office visit. He should maintain good hydration and avoid nonsteroidal anti-inflammatories. All these were explained in detail. Answered all questions and follow-up appointment was given. Orders: Orders Complete Blood Count Auto Diff 3 Weeks N18.32 - Chronic kidney disease, stage 3b Creatinine 3 Weeks N18.32 - Chronic kidney disease, stage 3b Blood Urea Nitrogen 3 Weeks N18.32 - Chronic kidney disease, stage 3b PSA,Total (Free>4and<10) 3 Weeks N18.32 - Chronic kidney disease, stage 3b Complement C3 3 Weeks N18.32 - Chronic kidney disease, stage 3b Complement C4 3 Weeks N18.32 - Chronic kidney disease, stage 3b Phospholipase A2 Receptor Pnl 3 Weeks N18.32 - Chronic kidney disease, stage 3b Parathyroid Hormone Intact 2 Weeks N18.32 - Chronic kidney disease, stage 3b Vitamin D 25-OH Total 2 Weeks N18.32 - Chronic kidney disease, stage 3b Phosphorus 2 Weeks N18.32 - Chronic kidney disease, stage 3b Immunofixation, Random Urine 2 Weeks N18.32 - Chronic kidney disease, stage 3b UA and rflx microscopic 2 Weeks N18.32 - Chronic kidney disease, stage 3b Electrolytes 3 Weeks N18.32 - Chronic kidney disease, stage 3b Calcium 3 Weeks N18.32 - Chronic kidney disease, stage 3b Anti DNA DS Antibody 3 Weeks N18.32 - Chronic kidney disease, stage 3b Myeloperoxidase Antibody 3 Weeks N18.32 - Chronic kidney disease, stage 3b Proteinase 3 PR3 Antibodies 3 Weeks N18.32 - Chronic kidney disease, stage 3b Anti Glomerular Basement Memb 3 Weeks N18.32 - Chronic kidney disease, stage 3b Immunofixation Pnl, Serum 3 Weeks N18.32 - Chronic kidney disease, stage 3b US renal BI 2 Weeks N18.32 - Chronic kidney disease, stage 3b US renal doppler 2 Weeks N18.32 - Chronic kidney disease, stage 3b Lactate Dehydrogenase 3 Weeks N18.32 - Chronic kidney disease, stage 3b Coding Level of Care Code New Pt Level 4 (91434) Diagnoses CKD stage 3b, GFR 30-44 ml/min N18.32 Anemia due to stage 3b chronic kidney disease N18.32; D63.1 Chronic kidney disease stage: stage 3 (moderate) Chronic kidney disease stage 3 subtype: stage 3b (GFR 30-44) Primary hypertension I10 Hypertension type: primary hypertension
[2025-06-04 10:42] VITALS: BP 90/50; PULSE 93; O2SAT 92; BMI 38.1
--- OUTSIDE RECORDS SUMMARY | 2025-06-04 11:11 | XMS_ITS | Data Portability ---
Author Organization [facility] [employer] [facility], Main Office Address [address], [address] [place] [address] Care Team Providers Care Supervisor Bindery Name Role Phone [facility] OTHER MYRNA MARTINS Primary Care Provider Assessment Encounter Date Assessment Date Assessment LastModified by Organization Details LastModified Time 04/18/2023 04/18/2023 04/08/23 wbc 6.5, hgb 10.4, plt 302, na 134, k 3.6, creat 0.9 Not available 04/18/2023 10:43:36 Plan of Treatment [...] and Address Organization Details Recorded Time Sepsis 24900988 Active 2022 Jeremy Arias MD [address] [place] [address], [address], [place], [address], [facility] 3 11:09:05 Venous stasis ulcer with edema of right lower leg 3924482680133 9106 Active 2022 Jeremy Arias MD [address] [facility], [address], [place], [address], [facility] 3 11:09:19 Chronic acquired lymphedema 19403193 Active 2022 Jeremy Arias MD [address] [facility], [address], [place], [address], [place] [facility] 3 11:09:34 Essential hypertensio n 37910523 Active 2022 Jeremy Arias MD [address], [address], [place], [address], [facility] 3 11:10:28 Opioid dependence 20013819 Active 2022 Jeremy Arias MD [address], [address], [place], [address], [facility] - [facility] 3 11:10:38 Chronic hepatitis C 819166928 Active 2022 Jeremy Arias MD [address], [address], [place], [address], [facility] - [facility] 3 11:10:47 Peripheral vascular disease 815413821 Active 2022 Jeremy Arias MD [address], [address], [place], [address], [facility] - [facility] 3 11:10:52 Chronic obstructive pulmonary disease 69287712 Active 2022 Jeremy Arias MD [address], [address], [place], [address], [facility] - [facility] 3 11:10:56 Morbid obesity 468640480 Active 2022 Jeremy Arias MD [address], [address], [place], [address], [facility] - [facility] 3 11:11:04 Alcoholism 9152564 Active 2022 Jeremy Arias MD [address], [address], [place], [address], [facility] - [facility] 3 11:30:31 Tobacco user 840896106 Active 2022 Jeremy Arias MD [address], [address], [place], [address], [facility] 3 11:30:37 History of intravenous drug abuse 3096258685257 9103 Active 2022 Jeremy Arias MD [address], [address], [place], [address], [facility] 3 11:30:43 Problem Notes None recorded. Medical Equipment None Reported. Allergies Allergen ID Allergen Name Allergen Category Reaction Reaction Severity Criticality Documentation Date Start Date Code Code System Note Provider Name and Address Organization Details Recorded Time 15435 Product containin g penicilli n (product) medicatio n anaphylax is Not available Not available 03/30/2023 60153 8001 SNOMED Jeremy Arias MD [address] [place] [address], [address], [place], [address], [facility] 3 11:08:33 98990 ibuprofen medicatio n Not available Not available Not available 03/30/2023 5640 RxNorm Jeremy Arias MD [address] [place] [address], [address], [place], [address], [facility] 3 11:08:40 09158 tramadol medicatio n Not available Not available Not available 03/30/2023 34580 RxNorm Jeremy Arias MD [address] [facility], [address], [place], [address], [facility] 3 11:08:45 Medications Not known to be on any medication Vitals Date Recorded Systolic And Diastolic Provider Name and Address Organization Details Last Updated DateTime 04/01/2023 128/73 mm[Hg] Jeremy Arias MD [address] [place] [address], [address], [place], [address], [facility] 04/01/2023 12:49:11 Date Recorded Systolic And Diastolic Provider Name and Address Organization Details Last Updated DateTime 04/06/2023 122/58 mm[Hg] Jeremy Arias MD [address] [place] [address], [address], [place], [address], [facility] 04/06/2023 15:56:03 Social History Question Answer Notes LastModified by Organizat ion Details LastModified Time Tobacco Smoking Status Current Every Day Smoker Jeremy Arias MD [address] [facility], [address], [place], [address], [facility] 03/30/2023 11:32:48 Do You Have An Advance Directive? Yes [facility] Information not available 04/01/2023 What Is Your Code Status? Full Code [email or web address] Information not available 03/30/2023 How Much Tobacco Do You Smoke? 1 PPD [facility] Information not available 03/30/2023 Sex: Unknown Functional Status Question Answer Note LastModified by Organization D etails LastModified Time What is your level of alcohol consumption? Heavy Information not available 03/30/2023 Mental Status None recorded. Family History Nothing Reported Notes:N/C Medical History No medical history recorded. Immunizations Vaccine Type Date Status Note Provider Nam e and Address Organization Details Recorded Time COVID-19, mRNA, LNP-S, bivalent, PF, 50 mcg/0.5 mL or 25mcg/0.25 mL dose 2 completed Alena modi [facility] 11/09/2023 09:50:46 Influenza, adjuvanted, quadrivalent, PF 2 [facility]/09/2023 09:51:57 Pneumococcal conjugate PCV 13 2 [facility] 11/09/2023 09:53:31 pneumococcal polysaccharide PPV23 3 completed Alena Cartwright [facility] 02/02/2024 13:30:47 Influenza, adjuvanted, quadrivalent, PF 3 completed Alena Cartwright [facility] 02/02/2024 13:30:58 zoster recombinant 3 [facility]/02[facility]2024 13:31:14 zoster recombinant 3 [facility]2024 13:31:18 Past Encounters Encounter ID Performer Location Encounter Start Date Encounter Closed Date Diagnosis/Indication Diagnosis SNOMED-CT Code Diagnosis ICD10 Code Diagnosis Note [id number] Jeremy Arias MD [facility] on [address] [place] [address] 03/30/2023 11:00:34 04/06/2023 10:45:49 Acute kidney injury 07184327 N17.8 improved with fluidlisin opril on hold to reeval restart in 1 week Cellulitis of right lower limb 8843753231 6877019 L03.115 see above Sepsis 93730398 A41.89 see HPIsevere sepsis due to RLE cellulitis Initially started on IV ancefEval by ID and changed to keflex on dischargeh owever dose not given in hospital and patient states has anaphylati c reaction to PCNwill d/c keflex for now and startdoxyc ycline 100 mg bidadd probioticf ollow ID recs and update with concernsmo nitor cbc addendum to abovepatie nt has already received 3 doses of keflex at facility with no SEwill continue course and monitorord ers updatedove rride PCN allergy Venous sta sis ulcer with edema of right lower leg 0669737728 2113251 L97.918 Eval by surgery followed outpatient at [facility] wound clinicmoni tor site and follow surgery recsto f/u with wound clinic Chronic ac quired lymphedema 76737969 I89.0 supportive caremonito r need for refer to lymphedema clinic Essential hypertension 72431205 I10 hypotensiv e and with ARF lisinopril 40 mg qd was held to re-evaluat e in 1 week currently on lasix 20 mg bidmonitor bp and need to titrate Opioid dependence 254247 00 F11.20 methadone 135 mg qdto follow with clinic Chronic hepatitis C 1283 42467 B18.2 carrying dxadded to PMHunsure if treated prior Peripheral vascular disease 876210807 I73.89 maintained oncoumadin - monitor INR and titrate doserosuva statin 10 mg qdmonitor for sxvascular eval prn Chronic ob structive pulmonary disease 47303945 J41.1 carrying dxadvair 250/50 qdmonitor need for albuterol Morbid obesity 604619054 E66.01 dietary to eval Alcoholism 4819971 F10.2 0 states was drinking > 1/2 liter of whiskey per day [facility] D therapy Tobacco user 008463762 Z 72.0 was smoking 1 ppd prior to hospitaliz ationnow states has quit History of intravenous drug abuse 4249550332 6274355 F19.11 hx of heroin and oxy abuseadded to PMHnow stable on methadone [id number] Jeremy Arias MD [facility] on [address] [place] [address] 04/01/2023 12:48:46 04/06/2023 12:19:53 Advance care planning 246372209 Z71.89 MOSLT completed with Leda l Code Sepsis 79780127 A41.89 see HPIsevere sepsis due to RLE cellulitis Initially started on IV ancefEval by ID and changed to keflex on dischargep atient is tolerating Keflex without adverse reaction Opioid dependence 153654 00 F11.20 methadone 135 mg qdto follow with clinicof note complainin g of increased painwill refer back to methadone clinic for re-evaluat ion of dosewill allow dilaudid 2 mg q 8 prn breakthrou gh pain x 5 days History of intravenous drug abuse 5914072968 2031073 F19.11 hx of heroin and oxy abuseadded to PMHon methadones ee above [id number] Jeremy rAias MD [facility] on [address] [place] [address] 04/06/2023 15:55:29 04/13/2023 10:48:33 Sepsis 41883087 A41.89 see HPIsevere sepsis due to RLE cellulitis Initially started on IV ancefconti nue keflex to complete coursemoni tor cbc ordered for am Cellulitis of right lower limb 1315915583 0606566 L03.115 see above Acute kidney injury 1466 9001 N17.8 improved with fluidlisin opril on holdbmp ordered for amconsider restart of lisinopril if normalized Venous sta sis ulcer with edema of right lower leg 8043727293 3020320 L97.918 followed outpatient at [facility] wound clinicmoni tor site and follow surgery recsto f/u with wound clinic Essential hypertension 56547792 I10 see above with lisinopril on holdcurren tly on lasix 20 mg bidmonitor bp and need to titrate Tobacco user 255961554 Z 72.0 now off tobaccosta anuj has quit [id number] Jeremy Arias MD [facility] on [address] [place] [address] 04/12/2023 12:13:31 04/18/2023 15:22:50 Sepsis 59400419 A41.89 see HPIhas now completed Ab course with wbc WNR Acute kidney injury 1466 9001 N17.8 improved with fluidlisin opril held priornow will restartmon itor renal function Chronic ac quired lymphedema 13247713 I89.0 supportive caremonito r need for refer to lymphedema clinic Essential hypertension 23348303 I10 lisinopril 40 mg qd restartedl asix 20 mg bidmonitor bp and need to titrate Opioid dependence 404270 00 F11.20 methadone 135 mg qdfollowed by clinic Peripheral vascular disease 722264473 I73.89 maintained oncoumadin - monitor INR and titrate doseelevat ed INR with Vit K givenreche ck INR in amrosuvast atin 10 mg qdmonitor for sxvascular eval prn [id number] Jeremy Arias MD [facility] on [address] [place] [phone] 04/15/2023 15:37:36 04/19/2023 09:14:39 Essential hypertension 52805964 I10 lisinopril 40 mg qdlasix 20 mg bidmonitor bp and need to titratebmp ordered for 04/19 Acute kidney injury 1466 9001 N17.8 improved with fluidlisin opril restartedr echeck renal function Venous sta sis ulcer with edema of right lower leg 7594562492 2563322 L97.918 followed outpatient at [facility] wound cliniccont inues to improveupd ate surgery with concerns Opioid dependence 617844 00 F11.20 methadone 135 mg qdto follow with clinic Peripheral vascular disease 531066196 I73.89 maintained oncoumadin - monitor INR and titrate doserosuva statin 10 mg qdrecheck INR tuesday - order in place [id number] EVELYN Faustin [facility] on [address] [place] [address] 04/18/2023 08:08:35 04/20/2023 10:57:18 Essential hypertension 74593818 I10 lisinopril 40 mg qdlasix 20 mg bidf/u pcp Acute kidney injury 1466 9001 N17.8 improved with fluidslisi nopril restartedc reat 0.9 on 04/29lab pending today, no results available at this timef/u with pcp Venous sta sis ulcer with edema of right lower leg 7383992108 1727689 L97.918 followed outpatient at [facility] wound clinicimpr umang Opioid dependence 165525 00 F11.20 pt received his last dose of methadone 135 mg qd this morningf/u with methadone clinic Peripheral vascular disease 718994038 I73.89 INR pending today, will notify nurse when results available and they will call pt with results and dose recommenda tioncoumad in 5 mg qd - current dose at this timerosuva statin 10 mg qdf/u with pcp Sepsis 77903609 A41.89 completed keflexWBC normal on 04/08/23pt is currently has order for dilaudid 2 mg q 8 hrs prn though nurse notes that he had been taking it every 8 hours. appears to have been started on dilaudid by [facility] while in pt. pt also with hx of opioid dependence on methadone. will allow pt #21 tabs of dilaudid to take home.f/u with pcp Chronic ac quired lymphedema 73955290 I89.0 supportive caref/u with pcp Health Concerns Section Related Observation LastModified by Organization Detai ls LastModified Time None Recorded Concern Status LastModified by Organization Details LastModified Time None Recorded Advance Directives Directive Y: Payers Insurance Date Sequence Insurance Name Policy Number Policy Bull Covered Member ID Bull Member ID Guarantor Name 04/13/2024 1 [facility] - DOS ON OR AFTER 2023 - MEDICARE ADVANTAGE [place] (MEDICARE REPLACEMENT/ADV ANTAGE - PPO) Jose Naidu [id number] Jose Naidu
== END 2025-06-04 11:21 | disposition home or self-care (01) ==
LOC: HO.HKAS 10:19
PROVIDERS: PCP Internal Medicine; Visit Provider Internal Medicine Nephrology
DX: N18.32 Chronic kidney disease, stage 3b (principal); D63.1 Anemia in chronic kidney disease; I10 Essential (primary) hypertension
CPT/HCPCS: 99204

== ENCOUNTER → 2025-06-04 10:18 | Outpatient (BNVA) | payer OTHER, SELFPAY | PROVIDERS: PCP Internal Medicine; Visit Provider Internal Medicine Nephrology | DX: N18.32 Chronic kidney disease, stage 3b (principal); I10 Essential (primary) hypertension; D63.1 Anemia in chronic kidney disease | CPT/HCPCS: 99202 ==

== ENCOUNTER → 2025-06-08 07:15 | Outpatient (BNV) | payer OTHER, SELFPAY | PROVIDERS: PCP Registered Nurse; Visit Provider Radiology Diagnostic Radiology | DX: J43.9 Emphysema, unspecified (principal) | CPT/HCPCS: 71250 ==

== ENCOUNTER 2025-06-08 07:27 | Outpatient (REF) | payer OTHER, SELFPAY ==
--- NOTE | ~2025-06-08 | CT_ITS ---
CLINICAL HISTORY: other specified cough Exam: CT chest without IV contrast Comparison: [place] - CT CHEST ANGIOGRAPHY WITH IV CONTRAST - 05/29/24 12:38 EDT Findings: Mild upper lobe predominant centrilobular and paraseptal emphysema. New focal tree-in-bud micronodules of the right posterolateral upper lobe. No consolidation. No pleural effusion or pneumothorax. Right middle lobe 3 mm subpleural nodule laterally on series 3, image 89 is stable, stable subpleural micronodule on image 109. Right lower lobe subpleural 4 mm nodule on image 87 is stable. Lingula 3 mm nodule on image 98 is stable. A few punctate calcified and noncalcified micronodules are stable. No pleural effusion or pneumothorax. Central airway is patent. Heart size is normal. No pericardial effusion. Mild atherosclerotic calcification of the aorta, nonaneurysmal. Moderate coronary artery calcification. Large hiatal hernia containing mesenteric fat. Bilateral gynecomastia. No lymphadenopathy. Imaged lower neck, chest wall are unremarkable. Pancreatic lipomatosis. Right renal cysts, the larger cyst is partially seen. Hepatic steatosis. Degenerative spondylosis of the thoracic spine. Impression: 1. New focal tree-in-bud micronodules of the right posterolateral upper lobe, most likely infectious/inflammatory. No consolidation. 2. Stable sub 5 mm pulmonary nodules, most likely benign. 3. Emphysema. 4. Moderate coronary artery calcification. 5. Large fat containing hiatal hernia. 6. Hepatic steatosis. 7. Pancreatic lipomatosis. This document has been electronically signed by: Hanna Chauhan MD on 06/10/2025 16:16:41
== END 2025-06-08 07:28 | disposition home or self-care (01) ==
LOC: HO.CT 07:27
PROVIDERS: PCP Registered Nurse; Visit Provider Registered Nurse
DX: R05.8 Other specified cough (principal)
CPT/HCPCS: 71250

== ENCOUNTER 2025-06-20 08:06 | Outpatient (REF) | payer OTHER, SELFPAY | END 2025-06-20 08:07 | disposition home or self-care (01) | LOC: HO.US 08:06 | PROVIDERS: Visit Provider Internal Medicine Nephrology | DX: Z13.89 Encounter for screening for other disorder (principal) ==

== ENCOUNTER 2025-07-04 14:01 | Outpatient (REF) | payer OTHER, SELFPAY ==
[2025-07-04 18:30] LABS: Appearance Urine Clear; Glucose Urine UA Negative (Negative); PH 5.0 (5.0-9.0); Specific Gravity - Urine 1.015 (1.005-1.025)
[2025-07-04 18:32] LABS: Parathyroid Hormone Intact 81.7 pg/mL (8.7-77.1)
== END 2025-07-04 14:02 | disposition home or self-care (01) ==
LOC: HO.HKASLDS 14:01
PROVIDERS: PCP Internal Medicine; Visit Provider Internal Medicine Nephrology
DX: I12.9 Hypertensive chronic kidney disease with stage 1 through stage 4 chronic kidney disease, or unspecified chronic kidney disease (principal); N18.32 Chronic kidney disease, stage 3b; F17.210 Nicotine dependence, cigarettes, uncomplicated
CPT/HCPCS: 81003; 82306; 83970; 84100; 86335; 99212

== ENCOUNTER 2025-07-04 14:01 | Outpatient (AMB) | payer OTHER, SELFPAY ==
--- NOTE | 2025-07-04 14:37 | HO.NEPHOV_ITS ---
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 He has been having CKD for some time but lately his serum creatinine has gotten worse. He has history of peripheral arterial disease, carotid stenosis as well as hypertension. He is on SHANNON inhibitor. He denies being diabetic. He has history of drug use and is currently on methadone. He has history of renal calculi. He denies coronary artery disease, CVA, congestive heart failure, excessive nonsteroidal anti-inflammatory medication use, hypercalcemia, new bone or back pain, epistaxis, sinusitis, photosensitivity, joint swellings, hematuria or any urinary symptoms. He has no history of any active malignancy. His blood pressure is fairly well controlled on current medications. He denies nausea, vomiting, diarrhea, chest pain, paroxysmal nocturnal dyspnea, orthopnea or orthostatic symptoms. He has history of hepatitis which has been treated and is currently deemed as being cured. He has good urine output. He is closely followed by his PCP. [facility] Medical History (Updated 06/08/25 @ 14:41 by Ck Hanson MD) Inguinal hernia COPD (chronic obstructive pulmonary disease) Venous stasis ulcer of lower extremity Chronic venous insufficiency Peripheral vascular disease Bipolar disorder DDD (degenerative disc disease), lumbar Swelling of thigh Open wound of right thigh Venous ulcer of right leg Cellulitis Hyperlipidemia Hypertensive cardiovascular disease Obesity hypoventilation syndrome Morbid obesity due to excess calories Chronic venous stasis dermatitis of both lower extremities Hepatitis C Sleep apnea Narcotic addiction Osteoarthritis Pulmonary embolism DVT (deep venous thrombosis) Chronic back pain Surgical History Status post endovenous radiofrequency ablation of saphenous vein History of surgery on lower extremity (06/10/23) History of incision and drainage History of repair of cleft lip History of arthroscopy of both knees Social History Household Members: Friend(s) Housing: Apartment Do you presently have visiting nurse or other home services: Yes Alcohol intake: current Alcohol intake frequency: 3 or more drinks per day Alcohol type: hard liquor Comment: pt to sss Patient Tobacco Use Status: Current everyday Tobacco user Tobacco use type: Cigarette Cigarette Packs Per Day: 1 Cigarettes Per Day: 20.0 Years Smoked: 30 e-Cigarette/Vaping Use: Currently Using Second Hand Smoke Exposure: No Substance Use Type: Marijuana Advance Directives Date on File: 03/30/23 service: No Current occupational status: disabled Review of Systems Const All systems reviewed & are unremarkable except as noted in HPI and below Physical Exam Vital Signs: Last Vital Signs Pulse 86 07/04/25 14:39 BP 112/60 07/04/25 14:39 Pulse Ox 91 L 07/04/25 14:39 Oxygen Delivery Method Room Air 07/04/25 14:39 BMI result Body Mass Index 36.9 Const General: comfortable and no acute distress Orientation/consciousness: patient oriented x3 HEENT Head: Yes normocephalic Mouth: Normal oral and palatal mucosa present Eyes EOM: EOMs intact bilaterally Neck Neck: Yes supple Resp Auscultation: clear to auscultation bilaterally Cardio Jugular venous distension: no JVD Rate: regular rate GI Palpation (GI): Soft to palpation Auscultation: normal bowel sounds General: Yes no CVA tenderness Back/Spine/Pelvis Back: no CVA tenderness Skin General skin exam: no rashes or lesions noted Neuro General: patient oriented x3 and moves all extremities Extrem General: Yes no pedal edema Results Reviewed Nephrology Results: Phosphorus, (2.7-4.5) 3.6 mg/dL Today PTH Intact, (8.7-77.1) 81.7 pg/mL H Today Urine Protein, (Neg-Trace) Negative mg/dL Today Assessment & Plan Assessment & Plan (1) CKD stage 3b, GFR 30-44 ml/min: Code(s): N18.32 - Chronic kidney disease, stage 3b Category: Medical (2) Hypertension: Code(s): I10 - Essential (primary) hypertension Category: Medical Qualifiers: Hypertension type: primary hypertension Qualified Code(s): I10 - Essential (primary) hypertension Plan Jose has CKD which has been progressive. His current GFR put him in CKD stage III B category. He is on SHANNON inhibitor, dose of which I reduced to lisinopril 5 mg daily n. He is not on any SGLT2 inhibitor. He has carotid artery stenosis as well as PAD. He may be having renal artery stenosis. He was not able to do the Doppler of renal arteries. I shall determine whether he needs any further workup including renal biopsy based on evolving data. I plan to start him on low-dose Jardiance at the next office visit. He should maintain good hydration and avoid nonsteroidal anti-inflammatories. All these were explained in detail. Answered all questions and follow-up appointment was given Orders: Orders Creatinine 6 Weeks N18.32 - Chronic kidney disease, stage 3b Blood Urea Nitrogen 6 Weeks N18.32 - Chronic kidney disease, stage 3b Electrolytes 6 Weeks N18.32 - Chronic kidney disease, stage 3b Coding Level of Care Code Est Pt Level 4 (05062) Diagnoses CKD stage 3b, GFR 30-44 ml/min N18.32 Primary hypertension I10 Hypertension type: primary hypertension
[2025-07-04 14:39] VITALS: BP 112/60; PULSE 86; O2SAT 91; BMI 36.9
== END 2025-07-04 15:21 | disposition home or self-care (01) ==
LOC: HO.HKAS 14:02
PROVIDERS: PCP Internal Medicine; Visit Provider Internal Medicine Nephrology
DX: N18.32 Chronic kidney disease, stage 3b (principal); I10 Essential (primary) hypertension
CPT/HCPCS: 99214

== ENCOUNTER 2025-07-09 09:58 | Inpatient (IN) | payer OTHER, SELFPAY ==
[2025-07-09] VITALS (15 sets, daily range): BP systolic 95–137; BP diastolic 46–69; PULSE 67–92; RESP 14–26; TEMP 36.6–37.7; O2SAT 88–97; BMI 38.3; BMI 39.2
--- NOTE | ~2025-07-09 | XR_ITS ---
EXAMINATION: XR CHEST CLINICAL INFORMATION: cough/fever COMPARISON: May 29, 2024. TECHNIQUE: Frontal view of the chest was obtained. FINDINGS: Pulmonary reticular pattern. Prominence of the individual markings with patchy opacities in the right lower hemithorax. No pleural effusion. No pneumothorax. Cardiomediastinal silhouette size is normal. Calcified plaque thoracic aorta. S-shaped curvature of the thoracic spine which could be positional. Multilevel thoracic spondylosis. Degenerative changes in the acromioclavicular joints. XR/XR chest 1V IMPRESSION: Acute on chronic airspace disease. Electronically signed by: Enrique Nieves MD 07/09/2025 10:38 AM EDT
--- NOTE | 2025-07-09 10:14 | ECG_ITS ---
Test Reason : SOB Blood Pressure : */* mmHG Vent. Rate : 74 BPM Atrial Rate : 74 BPM P-R Int : 152 ms QRS Dur : 96 ms QT Int : 406 ms P-R-T Axes : 7 -24 13 degrees QTcB Int : 450 ms Normal sinus rhythm Normal ECG When compared with ECG of 29-May-2024 12:58, Premature ventricular complexes are no longer Present Vent. rate has decreased by 47 bpm Questionable change in QRS duration Criteria for Anterior infarct are no longer Present Criteria for Anterolateral infarct are no longer Present Criteria for Inferior infarct are no longer Present Referred By: Laurie Richardson Electronically Signed By: Frank Mar
[2025-07-09] MEDS: Albuterol Sulfate 5 MG, Albuterol/Iprat 2.5/0.5MG 3 ML 3 ML INHALE (10:20)
--- NOTE | 2025-07-09 10:30 | PC.NURSE ---
pt presents to ED4 from triage as a sepsis alert c/o increased sob. pt noted to be 89% on RA. not home O2 dependent. pt assisted into bed - placed on the senior operations analyst displaying nsr. aside from being hypoxic, pt noted to hypotensive/tachypneic. all other vital signs/stable up to date. pt placed on 2L via NC w/ good effect. crackles noted throughout all lung granda. pt positioned upright to promote patent airway. pt reports increased sob/productive cough/chills/body aches x 2 weeks. pt reports his CLOTHING PRESSER advised him to come in and get evaluated. bilateral 18gIVs placed in the wrists - labs obtained/sent to lab. ekg performed by tech. pt otherwise in no apparent respiratory distress. pending CXR to be completed. plan of care ongoing. call yoder placed within reach.
[2025-07-09 10:33] LABS: Hematocrit 33.5 % (42.0-52.0); Hemoglobin 11.9 g/dl (14.0-18.0); Imm Gran Abs Auto 0.04 X10*3/uL (0.00-0.03); Imm Gran Pct Auto 0.4 % (0.0-0.4); Lymphocytes Absolute Auto 0.9 X10*3/uL (1.2-4.9); MANUAL DIFF FLAG NO; Mean Corpuscular HGB Conc 35.5 g/dl (31.0-36.0); Mean Corpuscular Hemoglobin 35.1 pg (27.0-33.0); Mean Corpuscular Volume 98.8 fL (80.0-98.0); NRBC Abs Auto 0.000 X10*3/uL (0.0-0.012); NRBC Pct Auto 0.0 /100WBC (0.0-0.2); Platelet Count 165 X10*3/uL (160-400); Red Blood Count 3.39 X10*6/uL (4.60-5.80); White Blood Count 10.2 X10*3/uL (4.8-10.8)
[2025-07-09 10:36] LABS: VBG HCO3 23 mmol/L (22-26); VBG O2 % Saturation 92.0 %
[2025-07-09 10:37] LABS: Venous Blood Gas Refer to POC result
[2025-07-09 10:45] LABS: INTERNATIONAL NORM RATIO 2.0 (0.9-1.1); Prothrombin Time 23.5 SEC (10.9-12.4)
[2025-07-09 10:53] LABS: B Type Natriuretic Peptide 35 pg/mL (<100)
[2025-07-09 10:58] LABS: Troponin-I High Sensitivity 5.0 ng/L (<3.5-35.0)
--- NOTE | 2025-07-09 11:07 | ED.SOB ---
HPI - SOB/Dyspnea General Chief Complaint: Dyspnea Stated Complaint: Can breathe, loss of apatite Time Seen by Provider: 07/09/25 10:09 Source: patient and old records reviewed Mode of arrival: ambulatory Limitations: no limitations History of Present Illness ED Provider: CROW MALLOY Narrative: 70 yo male with PMH of asthma, lymphedema, CKD stage 3b, HTN, HLD, obesity and obesity hypoventilation syndrome, anemia who notes for the past two weeks he has had a cough now it is more productive and he notes he cannot breathe. He denies recent travel, procedures, sick contacts. He is on coumadin for a remote PE and is still compliant. He was 85% on RA when he arrived. He has had body aches and chills. He has not been eating much. He is on lasix 20mg in AM and 10mg in PM. He is a smoker and uses daily maint inhalers. MD elicited complaint: shortness of breath Pertinent past history: diabetes Onset (ago): week(s) (2) Timing: progressively worsening Severity: moderate Exacerbating factors: lying flat and exertion Relieving factors: oxygen and upright position Known history of: diabetes Associated symptoms: cough, wheezing and sputum production Treatment prior to arrival: none Related Data Home Medications ?Medication ?Instructions ?Recorded ?Confirmed ascorbic acid (vitamin C) 500 mg 1 tab PO BID 10/07/21 10/11/24 tablet (Vitamin C) furosemide 20 mg tablet 1 tab PO BID 10/07/21 10/11/24 rosuvastatin 10 mg tablet 1 tab PO DAILY 10/07/21 10/11/24 sennosides 8.6 mg-docusate sodium 1 tab PO BID 10/07/21 10/11/24 50 mg tablet (Stool Softener-Stimulant Laxative) warfarin 3 mg tablet 6 mg PO SUTUWETHFRSA@1800 10/07/21 10/11/24 cholecalciferol (vitamin D3) 50 50 mcg PO DAILY 03/17/23 10/11/24 mcg (2,000 unit) tablet omega 9-cnw-fnu-fish oil 1,000 mg 1 cap PO DAILY 03/17/23 10/11/24 (120 mg-180 mg) capsule fluticasone 250 mcg-salmeterol 50 1 ea inhalation BID 05/20/23 10/11/24 mcg/dose blistr powdr for inhalation (Wixela Inhub) verapamil 120 mg 24 hr 120 mg PO DAILY 05/20/23 10/11/24 capsule,extended release warfarin 3 mg tablet 4.5 mg PO MO@1800 05/20/23 10/11/24 lisinopril 10 mg tablet 10 mg PO DAILY 06/04/25 methadone 10 mg/mL oral concentrate 125 mg PO DAILY 06/04/25 vitamin B complex-folic acid 0.4 1 tab PO DAILY 06/04/25 mg tablet (B Complex 1 (with folic acid)) Previous Rx's ?Medication ?Instructions ?Recorded walker #1 ea 10/15/21 nicotine 21 mg/24 hr daily 21 mg transdermal DAILY #14 ea 05/23/23 transdermal patch sterile gauze 4x4 #50 ea 06/13/23 tape 1 inch #1 ea 06/13/23 Allergies Allergy/AdvReac Type Severity Reaction Status Date / Time Penicillins Allergy Severe COMA Verified 07/09/25 10:05 ibuprofen Allergy Intermediate HIVES/STOMACHE Verified 07/09/25 10:05 UPSET tramadol Allergy Unknown Verified 07/09/25 10:05 Review of Systems Review of Systems: Constitutional : No Fever, pos Chills ENT/Mouth : No Hoarseness, No sore throat, No Rhinorrhea Eyes: No Redness, No Discharge, No Vision Changes Cardiovascular : No Chest Pain, positive SOB, positive Dyspnea on Exertion, pos Edema Respiratory : positive Cough, pos Sputum, positive Wheezing, Gastrointestinal : No Nausea, No Vomiting, No Diarrhea, No abdominal Pain Genitourinary : No Dysuria, No Hematuria Musculoskeletal : No joint pain, No Myalgias Skin : No rash Neuro : No Weakness, No Numbness, No Headache All other systems reviewed and are negative PMFSH Past Medical History Attestation statement: The following information was validated with the patient. Source: old records reviewed Medical History Inguinal hernia COPD (chronic obstructive pulmonary disease) Venous stasis ulcer of lower extremity Chronic venous insufficiency Peripheral vascular disease Bipolar disorder DDD (degenerative disc disease), lumbar Swelling of thigh Open wound of right thigh Venous ulcer of right leg Cellulitis Hyperlipidemia Hypertensive cardiovascular disease Obesity hypoventilation syndrome Morbid obesity due to excess calories Chronic venous stasis dermatitis of both lower extremities Hepatitis C Sleep apnea Narcotic addiction Osteoarthritis Pulmonary embolism DVT (deep venous thrombosis) Chronic back pain Surgical History Status post endovenous radiofrequency ablation of saphenous vein History of surgery on lower extremity (06/10/23) History of incision and drainage History of repair of cleft lip History of arthroscopy of both knees Social History Social History Household Members: Friend(s) Housing: Apartment Do you presently have visiting nurse or other home services: Yes Alcohol intake: current Alcohol intake frequency: 3 or more drinks per day Alcohol type: hard liquor Comment: pt to sss Patient Tobacco Use Status: Current everyday Tobacco user Tobacco use type: Cigarette Cigarette Packs Per Day: 1 Cigarettes Per Day: 20.0 Years Smoked: 30 Smoked in Last 30 Days: Yes e-Cigarette/Vaping Use: Currently Using Second Hand Smoke Exposure: No Use of substances other than those prescribed or required for medical reasons: No Substance Use Type: Marijuana Advance Directives: Yes Advance Directives on File: Yes Advance Directives Date on File: 03/30/23 service: No Current occupational status: disabled Physical Exam Vital Signs: Vital Signs: Last Vital Signs Temp 99.1 F 07/09/25 10:51 Pulse 79 07/09/25 11:33 Resp 16 07/09/25 11:33 BP 95/46 L 07/09/25 11:33 Pulse Ox 92 07/09/25 11:33 O2 Del Method Oxymask 07/09/25 11:33 O2 Flow Rate 4 07/09/25 11:33 BMI result Body Mass Index 38.3 Appearance: Alert. Oriented X3. No acute distress. Eyes: Pupils equal, round and reactive to light. ENT: Pharynx normal. Neck: Normal inspection. Neck supple. CVS: Normal heart rate and rhythm. Pulses normal. Respiratory: No respiratory distress. Breath sounds with rhonchi and very coarse in lower lobes Abdomen: Soft and nontender. Obese Skin: Skin warm and dry. Normal skin color. Normal skin turgor. Extremities: 1+ symmetric pitting bilateral lower extremity edema. Neuro: Oriented X 3. No motor deficit. No sensory deficit. Course Course Course Narrative: MAP stable, slight soft BP but given IVF Medications Administered Discontinued Medications Generic Name Dose Route Start Last Admin Trade Name Freq PRN Reason Stop Dose Admin Albuterol Sulfate 5 mg/ 0 mg 07/09/25 10:17 07/09/25 10:20 Albuterol/Ipratropium 3 ml INHALE 07/09/25 10:18 1 each ONCE ONE Administration Levofloxacin 750 mg in 150 mls @ 100 mls/hr 07/09/25 10:13 07/09/25 10:30 Levaquin IV 07/09/25 11:42 100 mls/hr ONCE ONE Administration Methylprednisolone Sodium Succinate 60 mg 07/09/25 10:13 07/09/25 10:25 Methylprednisolone Sod Succ 125 Mg/2 Ml Vial IVPUSH 07/09/25 10:14 60 mg ONCE ONE Administration Medical Decision Making Medical Decision Making MDM Narrative: 70 yo male with PMH of asthma, lymphedema, CKD stage 3b, HTN, HLD, obesity and obesity hypoventilation syndrome, anemia now here with URI symptoms productive cough, trouble breathing and on arrival he is hypoxic. I suspect more infectious symptoms I am going to obtain labs, viral panel, CXR, trop and BNP. It seems more infectious doubt VTE plan to obtain INR if subtherapeutic will consider CTA - given allergy to PCN will start on levofloxacin for CAP an IV solumedrol - bronch protocol ordered. Suspect admit given his hypoxia. Differential Diagnosis Differential Diagnoses: The differential diagnosis associated with the presentation includes viral syndrome, pneumonia, CHF Admission/Observation Consideration of admission/observation: Escalation of care including admission/observation considered admit for pneumonia and hypoxia Consult Healthcare Provider Management of the patient was discussed with: Hospitalist (will admit) Lab Data [facility] Lab Attestation statement: I reviewed the patient's lab results. 07/09/25 10:23 07/09/25 11:18 Labs: Lab Results 07/09/25 07/09/25 07/09/25 Range/Units 10:23 10:32 10:34 WBC 10.2 (4.8-10.8) X10*3/uL RBC 3.39 L (4.60-5.80) X10*6/uL Hgb 11.9 L (14.0-18.0) g/dl Hct 33.5 L (42.0-52.0) % MCV 98.8 H (80.0-98.0) fL MCH 35.1 H (27.0-33.0) pg MCHC 35.5 (31.0-36.0) g/dl RDW 13.0 (11.0-16.0) % Plt Count 165 (160-400) X10*3/uL MPV 9.3 L (9.4-12.4) fL Immature Gran % (Auto) 0.4 (0.0-0.4) % Neut % (Auto) 80.4 H (45-73) % Lymph % (Auto) 9.0 L (20-40) % [place] % (Auto) 7.7 (2-11) % Eos % (Auto) 2.2 (0-4) % Baso % (Auto) 0.3 (0-2) % Lymph # (Auto) 0.9 L (1.2-4.9) X10*3/uL [place] # (Auto) 0.8 (0.1-1.2) X10*3/uL Eos # (Auto) 0.2 (0.0-0.4) X10*3/uL Baso # (Auto) 0.0 (0.0-0.2) X10*3/uL Abs Immat Gran (auto) 0.04 H (0.00-0.03) X10*3/uL Absolute Neuts (auto) 8.2 (2.0-8.3) x10*3/uL Absolute Nucleated RBC 0.000 (0.0-0.012) X10*3/uL Nucleated RBC % (auto) 0.0 (0.0-0.2) /100WBC PT 23.5 H (10.9-12.4) SEC INR 2.0 H (0.9-1.1) VBG pH 7.45 H (7.32-7.43) VBG pCO2 32 mmHg VBG pO2 66 mmHg VBG HCO3 23 (22-26) mmol/L VBG O2 Saturation 92.0 % VBG Base Excess -0.1 mmol/L Sodium (135-145) mmol/L Potassium (3.3-5.1) mmol/L Chloride (96-108) mmol/L Carbon Dioxide (22-29) mmol/L Anion Gap (12-20) BUN (9-16) mg/dL Creatinine (0.5-1.4) mg/dL Estim Creat Clear Calc Estimated GFR Random Glucose (60-115) mg/dL Lactic Acid 1.7 (0.5-2.0) mmol/L Calcium (8.4-10.2) mg/dL Magnesium (1.6-2.6) mg/dL Total Bilirubin (0.0-1.0) mg/dL Direct Bilirubin (0.0-0.5) mg/dL AST (5-37) U/L ALT (0-40) U/L Alkaline Phosphatase (39-117) U/L Lactate Dehydrogenase (118-273) U/L Troponin I High Sens 5.0 (<3.5-35.0) ng/L C-Reactive Protein (< or = 0.50) mg/dL B-Natriuretic Peptide 35 (<100) pg/mL Total Protein (6.5-8.0) g/dL Albumin (3.5-5.0) g/dL Lipase (8-78) U/L Procalcitonin ng/mL Ethyl Alcohol mg/dL Influenza Type A (PCR) NEGATIVE (Negative) Influenza Type B (PCR) NEGATIVE (Negative) RSV RNA Qual (PCR) NEGATIVE (Negative) SARS-CoV-2 RNA (RT-PCR) NEGATIVE (Negative) 07/09/25 07/09/25 07/09/25 Range/Units 11:18 11:18 11:18 WBC (4.8-10.8) X10*3/uL RBC (4.60-5.80) X10*6/uL Hgb (14.0-18.0) g/dl Hct (42.0-52.0) % MCV (80.0-98.0) fL MCH (27.0-33.0) pg MCHC (31.0-36.0) g/dl RDW (11.0-16.0) % Plt Count (160-400) X10*3/uL MPV (9.4-12.4) fL Immature Gran % (Auto) (0.0-0.4) % Neut % (Auto) (45-73) % Lymph % (Auto) (20-40) % [place] % (Auto) (2-11) % Eos % (Auto) (0-4) % Baso % (Auto) (0-2) % Lymph # (Auto) (1.2-4.9) X10*3/uL [place] # (Auto) (0.1-1.2) X10*3/uL Eos # (Auto) (0.0-0.4) X10*3/uL Baso # (Auto) (0.0-0.2) X10*3/uL Abs Immat Gran (auto) (0.00-0.03) X10*3/uL Absolute Neuts (auto) (2.0-8.3) x10*3/uL Absolute Nucleated RBC (0.0-0.012) X10*3/uL Nucleated RBC % (auto) (0.0-0.2) /100WBC PT (10.9-12.4) SEC INR (0.9-1.1) VBG pH (7.32-7.43) VBG pCO2 mmHg VBG pO2 mmHg VBG HCO3 (22-26) mmol/L VBG O2 Saturation % VBG Base Excess mmol/L Sodium 132 L 131 L (135-145) mmol/L Potassium 4.2 D 4.2 (3.3-5.1) mmol/L Chloride 96 (96-108) mmol/L Carbon Dioxide (22-29) mmol/L Anion Gap (12-20) BUN (9-16) mg/dL Creatinine (0.5-1.4) mg/dL Estim Creat Clear Calc Estimated GFR Random Glucose (60-115) mg/dL Lactic Acid (0.5-2.0) mmol/L Calcium (8.4-10.2) mg/dL Magnesium (1.6-2.6) mg/dL Total Bilirubin (0.0-1.0) mg/dL Direct Bilirubin (0.0-0.5) mg/dL AST (5-37) U/L ALT (0-40) U/L Alkaline Phosphatase (39-117) U/L Lactate Dehydrogenase (118-273) U/L Troponin I High Sens (<3.5-35.0) ng/L C-Reactive Protein (< or = 0.50) mg/dL B-Natriuretic Peptide (<100) pg/mL Total Protein (6.5-8.0) g/dL Albumin (3.5-5.0) g/dL Lipase (8-78) U/L Procalcitonin ng/mL Ethyl Alcohol mg/dL Influenza Type A (PCR) (Negative) Influenza Type B (PCR) (Negative) RSV RNA Qual (PCR) (Negative) SARS-CoV-2 RNA (RT-PCR) (Negative) 07/09/25 07/09/25 07/09/25 Range/Units 11:18 11:18 11:18 WBC (4.8-10.8) X10*3/uL RBC (4.60-5.80) X10*6/uL Hgb (14.0-18.0) g/dl Hct (42.0-52.0) % MCV (80.0-98.0) fL MCH (27.0-33.0) pg MCHC (31.0-36.0) g/dl RDW (11.0-16.0) % Plt Count (160-400) X10*3/uL MPV (9.4-12.4) fL Immature Gran % (Auto) (0.0-0.4) % Neut % (Auto) (45-73) % Lymph % (Auto) (20-40) % [place] % (Auto) (2-11) % Eos % (Auto) (0-4) % Baso % (Auto) (0-2) % Lymph # (Auto) (1.2-4.9) X10*3/uL [place] # (Auto) (0.1-1.2) X10*3/uL Eos # (Auto) (0.0-0.4) X10*3/uL Baso # (Auto) (0.0-0.2) X10*3/uL Abs Immat Gran (auto) (0.00-0.03) X10*3/uL Absolute Neuts (auto) (2.0-8.3) x10*3/uL Absolute Nucleated RBC (0.0-0.012) X10*3/uL Nucleated RBC % (auto) (0.0-0.2) /100WBC PT (10.9-12.4) SEC INR (0.9-1.1) VBG pH (7.32-7.43) VBG pCO2 mmHg VBG pO2 mmHg VBG HCO3 (22-26) mmol/L VBG O2 Saturation % VBG Base Excess mmol/L Sodium (135-145) mmol/L Potassium (3.3-5.1) mmol/L Chloride 97 (96-108) mmol/L Carbon Dioxide 26 24 (22-29) mmol/L Anion Gap 14 14 (12-20) BUN 18 H (9-16) mg/dL Creatinine (0.5-1.4) mg/dL Estim Creat Clear Calc Estimated GFR Random Glucose (60-115) mg/dL Lactic Acid (0.5-2.0) mmol/L Calcium (8.4-10.2) mg/dL Magnesium (1.6-2.6) mg/dL Total Bilirubin (0.0-1.0) mg/dL Direct Bilirubin (0.0-0.5) mg/dL AST (5-37) U/L ALT (0-40) U/L Alkaline Phosphatase (39-117) U/L Lactate Dehydrogenase (118-273) U/L Troponin I High Sens (<3.5-35.0) ng/L C-Reactive Protein (< or = 0.50) mg/dL B-Natriuretic Peptide (<100) pg/mL Total Protein (6.5-8.0) g/dL Albumin (3.5-5.0) g/dL Lipase (8-78) U/L Procalcitonin ng/mL Ethyl Alcohol mg/dL Influenza Type A (PCR) (Negative) Influenza Type B (PCR) (Negative) RSV RNA Qual (PCR) (Negative) SARS-CoV-2 RNA (RT-PCR) (Negative) 07/09/25 07/09/25 07/09/25 Range/Units 11:18 11:18 11:18 WBC (4.8-10.8) X10*3/uL RBC (4.60-5.80) X10*6/uL Hgb (14.0-18.0) g/dl Hct (42.0-52.0) % MCV (80.0-98.0) fL MCH (27.0-33.0) pg MCHC (31.0-36.0) g/dl RDW (11.0-16.0) % Plt Count (160-400) X10*3/uL MPV (9.4-12.4) fL Immature Gran % (Auto) (0.0-0.4) % Neut % (Auto) (45-73) % Lymph % (Auto) (20-40) % [place] % (Auto) (2-11) % Eos % (Auto) (0-4) % Baso % (Auto) (0-2) % Lymph # (Auto) (1.2-4.9) X10*3/uL [place] # (Auto) (0.1-1.2) X10*3/uL Eos # (Auto) (0.0-0.4) X10*3/uL Baso # (Auto) (0.0-0.2) X10*3/uL Abs Immat Gran (auto) (0.00-0.03) X10*3/uL Absolute Neuts (auto) (2.0-8.3) x10*3/uL Absolute Nucleated RBC (0.0-0.012) X10*3/uL Nucleated RBC % (auto) (0.0-0.2) /100WBC PT (10.9-12.4) SEC INR (0.9-1.1) VBG pH (7.32-7.43) VBG pCO2 mmHg VBG pO2 mmHg VBG HCO3 (22-26) mmol/L VBG O2 Saturation % VBG Base Excess mmol/L Sodium (135-145) mmol/L Potassium (3.3-5.1) mmol/L Chloride (96-108) mmol/L Carbon Dioxide (22-29) mmol/L Anion Gap (12-20) BUN 20 H (9-16) mg/dL Creatinine 1.28 1.28 (0.5-1.4) mg/dL Estim Creat Clear Calc 69.8 69.8 Estimated GFR 56 Random Glucose (60-115) mg/dL Lactic Acid (0.5-2.0) mmol/L Calcium (8.4-10.2) mg/dL Magnesium (1.6-2.6) mg/dL Total Bilirubin (0.0-1.0) mg/dL Direct Bilirubin (0.0-0.5) mg/dL AST (5-37) U/L ALT (0-40) U/L Alkaline Phosphatase (39-117) U/L Lactate Dehydrogenase (118-273) U/L Troponin I High Sens (<3.5-35.0) ng/L C-Reactive Protein (< or = 0.50) mg/dL B-Natriuretic Peptide (<100) pg/mL Total Protein (6.5-8.0) g/dL Albumin (3.5-5.0) g/dL Lipase (8-78) U/L Procalcitonin ng/mL Ethyl Alcohol mg/dL Influenza Type A (PCR) (Negative) Influenza Type B (PCR) (Negative) RSV RNA Qual (PCR) (Negative) SARS-CoV-2 RNA (RT-PCR) (Negative) 07/09/25 07/09/25 Range/Units 11:18 11:18 WBC (4.8-10.8) X10*3/uL RBC (4.60-5.80) X10*6/uL Hgb (14.0-18.0) g/dl Hct (42.0-52.0) % MCV (80.0-98.0) fL MCH (27.0-33.0) pg MCHC (31.0-36.0) g/dl RDW (11.0-16.0) % Plt Count (160-400) X10*3/uL MPV (9.4-12.4) fL Immature Gran % (Auto) (0.0-0.4) % Neut % (Auto) (45-73) % Lymph % (Auto) (20-40) % [place] % (Auto) (2-11) % Eos % (Auto) (0-4) % Baso % (Auto) (0-2) % Lymph # (Auto) (1.2-4.9) X10*3/uL [place] # (Auto) (0.1-1.2) X10*3/uL Eos # (Auto) (0.0-0.4) X10*3/uL Baso # (Auto) (0.0-0.2) X10*3/uL Abs Immat Gran (auto) (0.00-0.03) X10*3/uL Absolute Neuts (auto) (2.0-8.3) x10*3/uL Absolute Nucleated RBC (0.0-0.012) X10*3/uL Nucleated RBC % (auto) (0.0-0.2) /100WBC PT (10.9-12.4) SEC INR (0.9-1.1) VBG pH (7.32-7.43) VBG pCO2 mmHg VBG pO2 mmHg VBG HCO3 (22-26) mmol/L VBG O2 Saturation % VBG Base Excess mmol/L Sodium (135-145) mmol/L Potassium (3.3-5.1) mmol/L Chloride (96-108) mmol/L Carbon Dioxide (22-29) mmol/L Anion Gap (12-20) BUN (9-16) mg/dL Creatinine (0.5-1.4) mg/dL Estim Creat Clear Calc Estimated GFR 56 Random Glucose 95 (60-115) mg/dL Lactic Acid (0.5-2.0) mmol/L Calcium 8.6 D 8.6 (8.4-10.2) mg/dL Magnesium 1.8 (1.6-2.6) mg/dL Total Bilirubin 0.3 (0.0-1.0) mg/dL Direct Bilirubin 0.3 (0.0-0.5) mg/dL AST 26 (5-37) U/L ALT 15 (0-40) U/L Alkaline Phosphatase 71 (39-117) U/L Lactate Dehydrogenase 173 (118-273) U/L Troponin I High Sens (<3.5-35.0) ng/L C-Reactive Protein 19.68 H (< or = 0.50) mg/dL B-Natriuretic Peptide (<100) pg/mL Total Protein 7.1 (6.5-8.0) g/dL Albumin 4.0 (3.5-5.0) g/dL Lipase 8 (8-78) U/L Procalcitonin 0.06 ng/mL Ethyl Alcohol 66 mg/dL Influenza Type A (PCR) (Negative) Influenza Type B (PCR) (Negative) RSV RNA Qual (PCR) (Negative) SARS-CoV-2 RNA (RT-PCR) (Negative) Independent Interpretation I performed an independent interpretation of an: EKG and Plain X-Ray (RLL pneumonia) Interpretation: Rate: 74 Rhythm: NSR [place]: left Normal P waves. Normal [place]. Normal QRS complex. ST T wave : inverted t wave V1, no SE, flat t waves aVF qTC: 450 prior studies: no acute ischemia The study has been interpreted contemporaneously by me. . Radiology Impression Discussion of test interpretation with radiology: I have reviewed the radiologist's reading. External Record Review External record reviewed: Outpatient record Critical Care Time Critical Care Time Critical Care Time: Yes Total Critical Care Time: 35 Attestation: Time is exclusive of separately billable procedures. Time includes: direct patient care, patient reassessment, coordination of patient care, interpretation of data (laboratory data, pulse oximetry, venous gases and chest xrays), review of patient's medical records, medical consultation and documentation of patient care. sepsis protocol. Procedures excluded from critical care time: electrocardiography. I attest to this time spent taking care of the patient Discharge Plan Discharge Clinical Impression: Hypoxia Community acquired pneumonia Qualifiers: Laterality: right Lung location: lower lobe of lung Qualified Code(s): J18.9 - Pneumonia, unspecified organism Patient Disposition: Admitted As Inpatient
--- NOTE | 2025-07-09 11:21 | PC.NURSE ---
pt noted to desat to 89% on 3L via NC. pt titrated to oxmask/placed on end tital. SPO2 at 93% on 3L via oxymask. all other vital signs stable/up to date aside from being slightly hypotensive. 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 abx continues to infuse per provider order. plan of care ongoing. call yoder placed within reach.
[2025-07-09 11:22] LABS: Resp Syncy Virus RNA Qual PCR NEGATIVE (Negative); SARS COV2 PCR INHOUSE NEGATIVE (Negative)
--- NOTE | 2025-07-09 11:45 | PC.NURSE ---
pt reports drinking 10+ nips daily. denies tremors/seizures from withdrawal. CIWA obtained displaying 6. provider notified/aware of results.
[2025-07-09 11:55] LABS: Alanine Aminotransferase 15 U/L (0-40); Albumin Level 4.0 g/dL (3.5-5.0); Alkaline Phosphatase 71 U/L (39-117); Anion Gap 14 (12-20); Aspartate Amino Transferase 26 U/L (5-37); Blood Urea Nitrogen 18 mg/dL (9-16); Calcium 8.6 mg/dL (8.4-10.2); Carbon Dioxide 26 mmol/L (22-29); Chloride 96 mmol/L (96-108); Creatinine Clr Calc Pharmacy 69.8; Estimated Glomerular Filt Rate 56; Lipase 8 U/L (8-78); Magnesium 1.8 mg/dL (1.6-2.6); Potassium 4.2 mmol/L (3.3-5.1); Sodium 132 mmol/L (135-145); Total Protein 7.1 g/dL (6.5-8.0)
[2025-07-09 12:02] LABS: Anion Gap 14 (12-20); Blood Urea Nitrogen 20 mg/dL (9-16); Calcium 8.6 mg/dL (8.4-10.2); Carbon Dioxide 24 mmol/L (22-29); Chloride 97 mmol/L (96-108); Creatinine Clr Calc Pharmacy 69.8; Estimated Glomerular Filt Rate 56; Potassium 4.2 mmol/L (3.3-5.1); Sodium 131 mmol/L (135-145)
[2025-07-09 12:06] LABS: Procalcitonin 0.06 ng/mL
[2025-07-09] MEDS: Lactated Ringers 500 ML IV (12:21)
--- NOTE | 2025-07-09 12:31 | PM.IMHP ---
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 Patient states symptoms began about 2 weeks prior to presentation. Has been having cough with yellow sputum worsening over the last 2 weeks associated with midsternal chest pain that is reproducible and worse with cough. Also having shortness breath worse on exertion. Reporting subjective fevers and chills. Denies sick contacts. In ED noted to be hypoxic to mid 80s on room air requiring 4 L. chest x-ray with acute on chronic airspace disease. Patient reports drinking 10 nips of Ji Beam per day, last drink day prior to presentation starting to feel jittery. Review of Systems Review of Systems: Yes all other systems are reviewed and are negative [facility] Medical History Inguinal hernia COPD (chronic obstructive pulmonary disease) Venous stasis ulcer of lower extremity Chronic venous insufficiency Peripheral vascular disease Bipolar disorder DDD (degenerative disc disease), lumbar Swelling of thigh Open wound of right thigh Venous ulcer of right leg Cellulitis Hyperlipidemia Hypertensive cardiovascular disease Obesity hypoventilation syndrome Morbid obesity due to excess calories Chronic venous stasis dermatitis of both lower extremities Hepatitis C Sleep apnea Narcotic addiction Osteoarthritis Pulmonary embolism DVT (deep venous thrombosis) Chronic back pain Surgical History Status post endovenous radiofrequency ablation of saphenous vein History of surgery on lower extremity (06/10/23) History of incision and drainage History of repair of cleft lip History of arthroscopy of both knees Social History Household Members: Friend(s) Housing: Apartment Do you presently have visiting nurse or other home services: Yes Alcohol intake: current Alcohol intake frequency: 3 or more drinks per day Alcohol type: hard liquor Comment: pt to sss Patient Tobacco Use Status: Current everyday Tobacco user Tobacco use type: Cigarette Cigarette Packs Per Day: 1 Cigarettes Per Day: 20.0 Years Smoked: 30 Smoked in Last 30 Days: Yes e-Cigarette/Vaping Use: Currently Using Second Hand Smoke Exposure: No Use of substances other than those prescribed or required for medical reasons: No Substance Use Type: Marijuana Advance Directives: Yes Advance Directives on File: Yes Advance Directives Date on File: 03/30/23 service: No Current occupational status: disabled Meds Allergies Allergy/AdvReac Type Severity Reaction Status Date / Time Penicillins Allergy Severe COMA Verified 07/09/25 10:05 ibuprofen Allergy Intermediate HIVES/STOMACHE Verified 07/09/25 10:05 UPSET tramadol Allergy Unknown Verified 07/09/25 10:05 Active Medications: Current Medications Acetaminophen (Acetaminophen 325 Mg Tablet) 650 mg PO Q6H PRN PRN Reason: Pain, Mild 1-3,fever,headache Albuterol/Ipratropium (Albuterol/Iprat 2.5/0.5mg 3 Ml Ampul.Neb) 3 ml INHALE RQ4H WHILE AWAKE PRN PRN Reason: sob Calcium Carbonate (Calcium Carbonate 750 Mg Tab.Chew) 750 mg PO Q4H PRN PRN Reason: Heartburn Lactated Ringer's (Lr) 500 mls @ 500 mls/hr IV .Q1H ONE Stop: 07/09/25 12:37 Last Admin: 07/09/25 12:21 Dose: 500 mls/hr Thiamine HCl 200 mg/ Sodium (Chloride) 102 mls @ 204 mls/hr IV ONCE ONE Stop: 07/09/25 12:37 Levofloxacin (Levaquin) 750 mg in 150 mls @ 100 mls/hr IV Q24H [facility] Magnesium Hydroxide (Milk Of Magnesia 30 Ml Oral.Susp) 30 ml PO DAILY PRN PRN Reason: Constipation Melatonin (Melatonin 3 Mg Tablet) 6 mg PO BEDTIME PRN PRN Reason: Insomnia Methylprednisolone Sodium Succinate (Methylprednisolone Sod Succ 40 Mg/Ml Vial) 40 mg IVPUSH Q12H [facility] Pharmacy Consult (Consult Rx Etoh Phenob Im/Po) 1 each MISCELLANE ONCE PRN; Protocol PRN Reason: Consult order Sodium Chloride (0.9 % Sodium Chloride Flush 3 Ml Syringe) 3 ml IVFLUSH QSHIFT [facility] Home Medications ?Medication ?Instructions ?Recorded ?Confirmed ?Last Taken ?Type ascorbic acid (vitamin C) 500 mg 1 tab PO BID 10/07/21 10/11/24 05/19/23 History tablet (Vitamin C) furosemide 20 mg tablet 1 tab PO BID 10/07/21 10/11/2423 History rosuvastatin 10 mg tablet 1 tab PO DAILY 10/07/21 10/11/24 05/19/23 History sennosides 8.6 mg-docusate sodium 1 tab PO BID PRN Constipation 10/07/21 10/11/24 05/19/23 History 50 mg tablet (Stool Softener-Stimulant Laxative) warfarin 3 mg tablet 6 mg PO SUTUWETHFRSA@1800 10/07/21 10/11/24 06/08/23 History cholecalciferol (vitamin D3) 50 50 mcg PO DAILY 03/17/23 10/11/24 05/19/23 History mcg (2,000 unit) tablet omega 1-uac-bfn-fish oil 1,000 mg 1 cap PO DAILY 03/17/23 10/11/24 06/08/23 History (120 mg-180 mg) capsule fluticasone 250 mcg-salmeterol 50 1 ea inhalation BID 05/20/23 10/11/24 05/19/23 History mcg/dose blistr powdr for inhalation ([employer]) verapamil 120 mg 24 hr 120 mg PO DAILY 05/20/23 10/11/24 05/19/23 History capsule,extended release warfarin 3 mg tablet 4.5 mg PO MO@1800 05/20/23 10/11/24 05/16/23 History lisinopril 10 mg tablet 10 mg PO DAILY 06/04/25 Unknown History methadone 10 mg/mL oral concentrate 125 mg PO DAILY 06/04/25 Unknown History vitamin B complex-folic acid 0.4 1 tab PO DAILY 06/04/25 Unknown History mg tablet (B Complex 1 (with folic acid)) furosemide 20 mg tablet 10 mg PO BEDTIME 07/09/25 Unknown History polyethylene glycol 3350 17 gram 17 g PO DAILY 07/09/25 Unknown History oral powder packet Physical Exam Vital Signs and Narrative: Vital Signs: Last Vital Signs Temp 99.1 F 07/09/25 10:51 Pulse 86 07/09/25 12:28 Resp 17 07/09/25 12:28 BP 111/60 07/09/25 12:28 Pulse Ox 90 L 07/09/25 12:28 O2 Del Method Simple Mask 07/09/25 12:28 O2 Flow Rate 4 07/09/25 12:28 BMI result Body Mass Index 38.3 General: AO X 3, no acute distress Resp: rhonchi bilateral, no accessory muscles used CVS: S1,S2,RRR, lymphedema with chronic changes GI: soft, non tender, non distended Neuro: motor grossly intact, alert, tremor Psych: appropriate affect, appropriate insight Results Labs 07/09/25 10:23 07/09/25 11:18 Labs: Laboratory Results - last 24 hr 07/09/25 07/09/25 07/09/25 10:23 10:32 10:34 MCV 98.8 H MCH 35.1 H MCHC 35.5 RDW 13.0 Plt Count 165 MPV 9.3 L Immature Gran % (Auto) 0.4 Neut % (Auto) 80.4 H Lymph % (Auto) 9.0 L [place] % (Auto) 7.7 Eos % (Auto) 2.2 Baso % (Auto) 0.3 Lymph # (Auto) 0.9 L [place] # (Auto) 0.8 Eos # (Auto) 0.2 Baso # (Auto) 0.0 Abs Immat Gran (auto) 0.04 H Absolute Neuts (auto) 8.2 Absolute Nucleated RBC 0.000 Nucleated RBC % (auto) 0.0 PT 23.5 H INR 2.0 H VBG pH 7.45 H VBG pCO2 32 VBG pO2 66 VBG HCO3 23 VBG O2 Saturation 92.0 VBG Base Excess -0.1 Anion Gap Estim Creat Clear Calc Estimated GFR Random Glucose Lactic Acid 1.7 Calcium Magnesium Total Bilirubin Direct Bilirubin AST ALT Alkaline Phosphatase Lactate Dehydrogenase C-Reactive Protein B-Natriuretic Peptide 35 Total Protein Albumin Lipase Procalcitonin Ethyl Alcohol Influenza Type A (PCR) NEGATIVE Influenza Type B (PCR) NEGATIVE RSV RNA Qual (PCR) NEGATIVE SARS-CoV-2 RNA (RT-PCR) NEGATIVE 07/09/25 07/09/25 07/09/25 11:18 11:18 11:18 MCV MCH MCHC RDW Plt Count MPV Immature Gran % (Auto) Neut % (Auto) Lymph % (Auto) [place] % (Auto) Eos % (Auto) Baso % (Auto) Lymph # (Auto) [place] # (Auto) Eos # (Auto) Baso # (Auto) Abs Immat Gran (auto) Absolute Neuts (auto) Absolute Nucleated RBC Nucleated RBC % (auto) PT INR VBG pH VBG pCO2 VBG pO2 VBG HCO3 VBG O2 Saturation VBG Base Excess Anion Gap 14 14 Estim Creat Clear Calc 69.8 69.8 Estimated GFR 56 Random Glucose Lactic Acid Calcium Magnesium Total Bilirubin Direct Bilirubin AST ALT Alkaline Phosphatase Lactate Dehydrogenase C-Reactive Protein B-Natriuretic Peptide Total Protein Albumin Lipase Procalcitonin Ethyl Alcohol Influenza Type A (PCR) Influenza Type B (PCR) RSV RNA Qual (PCR) SARS-CoV-2 RNA (RT-PCR) 07/09/25 07/09/25 11:18 11:18 MCV MCH MCHC RDW Plt Count MPV Immature Gran % (Auto) Neut % (Auto) Lymph % (Auto) [place] % (Auto) Eos % (Auto) Baso % (Auto) Lymph # (Auto) [place] # (Auto) Eos # (Auto) Baso # (Auto) Abs Immat Gran (auto) Absolute Neuts (auto) Absolute Nucleated RBC Nucleated RBC % (auto) PT INR VBG pH VBG pCO2 VBG pO2 VBG HCO3 VBG O2 Saturation VBG Base Excess Anion Gap Estim Creat Clear Calc Estimated GFR 56 Random Glucose 95 Lactic Acid Calcium 8.6 D 8.6 Magnesium 1.8 Total Bilirubin 0.3 Direct Bilirubin 0.3 AST 26 ALT 15 Alkaline Phosphatase 71 Lactate Dehydrogenase 173 C-Reactive Protein 19.68 H B-Natriuretic Peptide Total Protein 7.1 Albumin 4.0 Lipase 8 Procalcitonin 0.06 Ethyl Alcohol 66 Influenza Type A (PCR) Influenza Type B (PCR) RSV RNA Qual (PCR) SARS-CoV-2 RNA (RT-PCR) Imaging Radiologist's Impressions: Impressions Chest X-Ray 07/09/25 09:22 IMPRESSION: Acute on chronic airspace disease. 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, chronic LE lymphedema, HTN, CKD III, PVD, opiate dependence on methadone, HCV presented with shortness of breath and cough Sepsis (not severe) and acute hypoxic respiratory failure due to COPD with acute decompensation and possible pneumonia Levofloxacin, IV Solu-Medrol, DuoNebs, wean O2 as tolerated Follow up cultures Alcohol dependence with withdrawal Phenobarbital protocol Chronic opiate dependence Continue methadone once verified History of DVT/PE Continue warfarin and monitor INR Morbid obesity Weight loss recommended Chronic lymphedema Compression Full code Quality Stroke Does the patient have a stroke diagnosis?: No VTE Prior VTE?: Yes VTE Risk Level:: Medical - moderate - high VTE Device Contraindication: Treatment Not Indicated VTE Drug Contraindication: N/A - Med Ordered
[2025-07-09] MEDS: PHENobarbitaL sodium 130 MG/ML IM ONCE 226 MG IM (13:01)
[2025-07-09] MEDS: Thiamine HCL 200 MG in 0.9 % Sodium Chloride 100 ML 204 MG IV (13:01)
--- NOTE | 2025-07-09 13:04 | PHA.MEDREC ---
Addendum entered by David Brown PharmD 07/09/25 13:18: reviewed Original Note: Pharmacy Consult ? Medication Reconciliation Pharmacy has completed the medication reconciliation. Spoke with pt and he confirmed his medications. Pt confirmed, he takes Furosemide 20mg tabs once in the Am and 1/2 tab (10mg) at bedtime, his Lisinopril was decreased by his Dr (Dr. Hanson) in the last week from 10mg QD to 5mg (1/2 tab) QD and he confirmed he its taking his Warfarin 3mg tab taking 2 tabs (6mg) daily.
--- NOTE | 2025-07-09 13:47 | PC.NURSE ---
pt turned/repositioned to promote patent airway. pt remains on 6L vix oymask. pt seemingly warm to the touch - rectal temp obtained displaying 99.9. rectal probe now in place.
[2025-07-09] MEDS: 0.9 % Sodium Chloride Flush 3 ML SYRINGE IVFLUSH ×2 (15:39→21:44)
[2025-07-09] MEDS: PHENobarbitaL sodium 130 MG/ML VIAL IM Q3Hx2 170 MG IM ×2 (15:57→21:43)
[2025-07-09 17:20] LABS: Glucose, Whole Blood 181 mg/dL (60-115)
[2025-07-10] VITALS (8 sets, daily range): BP systolic 121–164; BP diastolic 63–81; PULSE 66–92; RESP 18–20; TEMP 36.4–37.2; O2SAT 92–100
[2025-07-10 04:29] LABS: Appearance Urine Clear; Glucose Urine UA Negative (Negative); PH 6.0 (5.0-9.0); Specific Gravity - Urine 1.010 (1.005-1.025)
[2025-07-10 07:28] LABS: Hematocrit 32.2 % (42.0-52.0); Hemoglobin 11.3 g/dl (14.0-18.0); Mean Corpuscular HGB Conc 35.1 g/dl (31.0-36.0); Mean Corpuscular Hemoglobin 34.2 pg (27.0-33.0); Mean Corpuscular Volume 97.6 fL (80.0-98.0); NRBC Abs Auto 0.000 X10*3/uL (0.0-0.012); NRBC Pct Auto 0.0 /100WBC (0.0-0.2); Platelet Count 168 X10*3/uL (160-400); Red Blood Count 3.30 X10*6/uL (4.60-5.80); White Blood Count 6.9 X10*3/uL (4.8-10.8)
[2025-07-10 07:32] LABS: INTERNATIONAL NORM RATIO 2.6 (0.9-1.1); Prothrombin Time 30.2 SEC (10.9-12.4)
[2025-07-10 07:49] LABS: Anion Gap 12 (12-20); Blood Urea Nitrogen 23 mg/dL (9-16); Calcium 8.9 mg/dL (8.4-10.2); Carbon Dioxide 27 mmol/L (22-29); Chloride 97 mmol/L (96-108); Creatinine Clr Calc Pharmacy 73.6; Estimated Glomerular Filt Rate 59; Magnesium 2.0 mg/dL (1.6-2.6); Potassium 4.7 mmol/L (3.3-5.1); Sodium 131 mmol/L (135-145)
[2025-07-10] MEDS: Thiamine HCL 100 MG in 0.9 % Sodium Chloride 100 ML 202 MG IV (08:34)
[2025-07-10] MEDS: 0.9 % Sodium Chloride Flush 3 ML SYRINGE IVFLUSH ×3 (08:41→21:16)
--- NOTE | 2025-07-10 09:03 | MHC.CM.PN ---
IMM 07/10/25, Pt. lives with his friend, Wilton, who is also his MECHANICAL DESIGN ENGINEER. He has 5 hours a day for MECHANICAL DESIGN ENGINEER. He goes to [facility] for Methadone. He has a daily RN visit from [facility] (info sent via [employer]). For DME, pt. uses a cane. His MECHANICAL DESIGN ENGINEER will transport him home at [place]. DCP: home, resume care. CM to follow for DC needs.
--- NOTE | 2025-07-10 11:06 | HE.PHANOTE ---
METHADONE Pt last received 125mg 07/09/25 per Rochelle , RN, and Whit, RN at [facility] ([phone]). Pt has meds locked up at home, [facility] R[facility] come to open and give med to pt everyday.
[2025-07-10] MEDS: methADONE HCl 20 MG/2 ML ORAL.CONC 125 MG PO (11:15)
[2025-07-10] MEDS: VerapamiL HCL SR 120 MG TABLET.ER PO (11:29)
[2025-07-10] MEDS: Fluticasone/Vilanterol 200/25 BLST.W.DEV 1 PUFF INHALE (11:31)
--- NOTE | 2025-07-10 12:14 | HO.WOUND ---
Addendum entered by Kailyn Arteaga 07/10/25 12:22: in addition: patient reports long history of lower extremity wounding with care out out patient wound centers. upon assessment today skin is intact with dark hyperpigmentation/hemosiderin staining with areas of scarring from previous wounds. heels intact and blanching. 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 palpable pedal pulses. Original Note: Wound Consult: Initial 70yr old male [place] [facility] [place]- See progress notes and H&P for detailed history. Wound consult placed for buttocks/coccyx. Patient agreeable to assessment and photo documentation. patient able to turn in bed for assessment. patient reports occasional incontinence. Etiology: MASD to gluteal fold, extending over coccyx and to anushka anal skin. Wound Bed: intact, moist, pink blanching Drainage / Odor: none Edges: ? irregular Anushka wound: ? No Induration, Fluctuance or Warmth noted Pain: none Goals of Treatment: ? moisture balance, offloading Recommendations: 1. Turn and Reposition every 2 hours and as needed for patient comfort. Use pillows or wedges to support off loading positions. 2. Off Load all bony prominences with use of pillows and heel boots if needed. Apply Preventative foams where needed. 3. Monitor for incontinence and moisture control, use barrier creams when needed for prevention and treatment. 4. Provide adequate and supplemental nutrition. 5. Order or Continue low air loss mattress. 6. When applicable maintain blood glucose levels per Providers order. Buttocks/gluteal fold: Off Load Pressure with Q2 hr turns and use of pillows - Cleanse with PH balance spray or wipes, pat dry. ?Apply thin layer of barrier cream to affected area. Apply twice daily and Reapply thin layer PRN after each episode of incontinence. Re-consult wound care Nurse for wound deterioration or wound changes.
--- NOTE | 2025-07-10 12:27 | MHC.CM.PN ---
EMR REVIEWED, PER HOSPITALIST PLAN FOR BONE MARROW BIOPSY, ANTIC PT WILL REMAIN INPT FOR 2-3 MORE DAYS, CM WILL CONT TO FOLLOW DC NEEDS. PT CLEARED BY CARE TEAM FOR IPLOC ON 07/07.
--- NOTE | 2025-07-10 12:43 | HO.ADDICTCON ---
History of Present Illness Date of Service: 07/10/2025 Chief Complaint: eoth pna Reason for Consult: AUD Sources of Information: patient interviewed and chart reviewed HPI Narrative: Patient is a 70 year old male with history of CKD, HTN, HLD AUD and asthma. Came in complaining of SOB and cough. FOund to be hypoxic in ED with pneumonia and medically admitted. During admission patient reported feeling jittery and stated that he drinks daily. Phenobarbital taper started. Patient seen in room 477. He is awake, alert, pleasant and engaged in interview. Patient quite talkative, but easiky redirected to answer questions. He reports that he has been drinking socially since he was a young adult and it has never interfered with his work, social life or other responsibilities. He states that 2 years ago he began drinking daily, then amount slowly increased. He is currently drinking btwn 10-12 nips of rum daily. He begins drinking at 5am. He reports withdrawal sx at home, mainly tremor when he does not drink. He states he cut down to about 6 nips recently, however the tremor and anxiety was too intense so he resumed previous amount. Denies any history of treatment. Currently withdrawal sx well managed with pheno, however tremor still visible. No restlessness, diaphoresis, nausea or loose stools. History of OUD, in sustained remission for almost 10 years. Reports last non prescribed opiate was April 2016. He is stable with methadone dose and connected to [facility]. [facility] administers methadone daily (per patient report). Medical Evaluation Reviewed: Yes Review of Systems Constitutional: Reports as per HPI Cardiovascular: Reports dyspnea Respiratory: Reports dyspnea Diagnostics Vital Signs (24Hr): Vital Signs - 24 hr 07/09/25 13:03 07/09/25 13:35 07/09/25 13:43 Temperature 99.9 F Pulse Rate 76 81 88 Respiratory Rate 21 H 17 18 Blood Pressure 101/58 L 113/69 101/62 Pulse Oximetry 92 93 93 Oxygen Delivery Method Oxymask Oxymask Oxymask Oxygen Flow Rate 6 6 6 07/09/25 15:39 07/09/25 18:51 07/09/25 23:28 Temperature 99.7 F 97.9 F 97.8 F Pulse Rate 85 76 67 Respiratory Rate 15 17 18 Blood Pressure 108/56 L 137/65 120/61 Pulse Oximetry 92 97 94 Oxygen Delivery Method Oxymask Oxymask Oxymask Oxygen Flow Rate 6 6 4 07/10/25 03:25 07/10/25 07:15 07/10/25 10:55 Temperature 97.5 F 98.1 F 97.7 F Pulse Rate 66 76 80 Respiratory Rate 18 20 20 Blood Pressure 137/81 148/73 H 121/77 Pulse Oximetry 100 93 95 Oxygen Delivery Method Oxymask Oxymask Oxymask Oxygen Flow Rate 6 2 2 07/10/25 11:33 07/10/25 12:12 Temperature Pulse Rate 92 Respiratory Rate 20 Blood Pressure Pulse Oximetry 92 Oxygen Delivery Method Nasal Cannula Oxygen Flow Rate 1 BMI result Body Mass Index 39.2 Labs 07/10/25 07:16 07/10/25 07:16 Labs: Laboratory Results - last 48 hr 07/09/25 07/09/25 07/09/25 10:23 10:32 10:34 WBC 10.2 RBC 3.39 L Hgb 11.9 L Hct 33.5 L MCV 98.8 H MCH 35.1 H MCHC 35.5 RDW 13.0 Plt Count 165 MPV 9.3 L Immature Gran % (Auto) 0.4 Neut % (Auto) 80.4 H Lymph % (Auto) 9.0 L [place] % (Auto) 7.7 Eos % (Auto) 2.2 Baso % (Auto) 0.3 Lymph # (Auto) 0.9 L [place] # (Auto) 0.8 Eos # (Auto) 0.2 Baso # (Auto) 0.0 Abs Immat Gran (auto) 0.04 H Absolute Neuts (auto) 8.2 Absolute Nucleated RBC 0.000 Nucleated RBC % (auto) 0.0 PT 23.5 H INR 2.0 H VBG pH 7.45 H VBG pCO2 32 VBG pO2 66 VBG HCO3 23 VBG O2 Saturation 92.0 VBG Base Excess -0.1 Sodium Potassium Chloride Carbon Dioxide Anion Gap BUN Creatinine Estim Creat Clear Calc Estimated GFR POC Glucose Random Glucose Lactic Acid 1.7 Calcium Magnesium Total Bilirubin Direct Bilirubin AST ALT Alkaline Phosphatase Lactate Dehydrogenase Troponin I High Sens 5.0 C-Reactive Protein B-Natriuretic Peptide 35 Total Protein Albumin Lipase Procalcitonin Urine Color Urine Appearance Urine pH Ur Specific [place] Urine Protein Urine Glucose (UA) Urine Ketones Urine Blood Urine Nitrite Ur Leukocyte Esterase Ethyl Alcohol Influenza Type A (PCR) NEGATIVE Influenza Type B (PCR) NEGATIVE RSV RNA Qual (PCR) NEGATIVE SARS-CoV-2 RNA (RT-PCR) NEGATIVE 07/09/25 07/09/25 07/09/25 11:18 11:18 11:18 WBC RBC Hgb Hct MCV MCH MCHC RDW Plt Count MPV Immature Gran % (Auto) Neut % (Auto) Lymph % (Auto) [place] % (Auto) Eos % (Auto) Baso % (Auto) Lymph # (Auto) [place] # (Auto) Eos # (Auto) Baso # (Auto) Abs Immat Gran (auto) Absolute Neuts (auto) Absolute Nucleated RBC Nucleated RBC % (auto) PT INR VBG pH VBG pCO2 VBG pO2 VBG HCO3 VBG O2 Saturation VBG Base Excess Sodium 132 L 131 L Potassium 4.2 D 4.2 Chloride 96 Carbon Dioxide Anion Gap BUN Creatinine Estim Creat Clear Calc Estimated GFR POC Glucose Random Glucose Lactic Acid Calcium Magnesium Total Bilirubin Direct Bilirubin AST ALT Alkaline Phosphatase Lactate Dehydrogenase Troponin I High Sens C-Reactive Protein B-Natriuretic Peptide Total Protein Albumin Lipase Procalcitonin Urine Color Urine Appearance Urine pH Ur Specific [place] Urine Protein Urine Glucose (UA) Urine Ketones Urine Blood Urine Nitrite Ur Leukocyte Esterase Ethyl Alcohol Influenza Type A (PCR) Influenza Type B (PCR) RSV RNA Qual (PCR) SARS-CoV-2 RNA (RT-PCR) 07/09/25 07/09/25 07/09/25 11:18 11:18 11:18 WBC RBC Hgb Hct MCV MCH MCHC RDW Plt Count MPV Immature Gran % (Auto) Neut % (Auto) Lymph % (Auto) [place] % (Auto) Eos % (Auto) Baso % (Auto) Lymph # (Auto) [place] # (Auto) Eos # (Auto) Baso # (Auto) Abs Immat Gran (auto) Absolute Neuts (auto) Absolute Nucleated RBC Nucleated RBC % (auto) PT INR VBG pH VBG pCO2 VBG pO2 VBG HCO3 VBG O2 Saturation VBG Base Excess Sodium Potassium Chloride 97 Carbon Dioxide 26 24 Anion Gap 14 14 BUN 18 H Creatinine Estim Creat Clear Calc Estimated GFR POC Glucose Random Glucose Lactic Acid Calcium Magnesium Total Bilirubin Direct Bilirubin AST ALT Alkaline Phosphatase Lactate Dehydrogenase Troponin I High Sens C-Reactive Protein B-Natriuretic Peptide Total Protein Albumin Lipase Procalcitonin Urine Color Urine Appearance Urine pH Ur Specific [place] Urine Protein Urine Glucose (UA) Urine Ketones Urine Blood Urine Nitrite Ur Leukocyte Esterase Ethyl Alcohol Influenza Type A (PCR) Influenza Type B (PCR) RSV RNA Qual (PCR) SARS-CoV-2 RNA (RT-PCR) 07/09/25 07/09/25 07/09/25 11:18 11:18 11:18 WBC RBC Hgb Hct MCV MCH MCHC RDW Plt Count MPV Immature Gran % (Auto) Neut % (Auto) Lymph % (Auto) [place] % (Auto) Eos % (Auto) Baso % (Auto) Lymph # (Auto) [place] # (Auto) Eos # (Auto) Baso # (Auto) Abs Immat Gran (auto) Absolute Neuts (auto) Absolute Nucleated RBC Nucleated RBC % (auto) PT INR VBG pH VBG pCO2 VBG pO2 VBG HCO3 VBG O2 Saturation VBG Base Excess Sodium Potassium Chloride Carbon Dioxide Anion Gap BUN 20 H Creatinine 1.28 1.28 Estim Creat Clear Calc 69.8 69.8 Estimated GFR 56 POC Glucose Random Glucose Lactic Acid Calcium Magnesium Total Bilirubin Direct Bilirubin AST ALT Alkaline Phosphatase Lactate Dehydrogenase Troponin I High Sens C-Reactive Protein B-Natriuretic Peptide Total Protein Albumin Lipase Procalcitonin Urine Color Urine Appearance Urine pH Ur Specific [place] Urine Protein Urine Glucose (UA) Urine Ketones Urine Blood Urine Nitrite Ur Leukocyte Esterase Ethyl Alcohol Influenza Type A (PCR) Influenza Type B (PCR) RSV RNA Qual (PCR) SARS-CoV-2 RNA (RT-PCR) 07/09/25 07/09/25 07/09/25 11:18 11:18 17:14 WBC RBC Hgb Hct MCV MCH MCHC RDW Plt Count MPV Immature Gran % (Auto) Neut % (Auto) Lymph % (Auto) [place] % (Auto) Eos % (Auto) Baso % (Auto) Lymph # (Auto) [place] # (Auto) Eos # (Auto) Baso # (Auto) Abs Immat Gran (auto) Absolute Neuts (auto) Absolute Nucleated RBC Nucleated RBC % (auto) PT INR VBG pH VBG pCO2 VBG pO2 VBG HCO3 VBG O2 Saturation VBG Base Excess Sodium Potassium Chloride Carbon Dioxide Anion Gap BUN Creatinine Estim Creat Clear Calc Estimated GFR 56 POC Glucose 181 H Random Glucose 95 Lactic Acid Calcium 8.6 D 8.6 Magnesium 1.8 Total Bilirubin 0.3 Direct Bilirubin 0.3 AST 26 ALT 15 Alkaline Phosphatase 71 Lactate Dehydrogenase 173 Troponin I High Sens C-Reactive Protein 19.68 H B-Natriuretic Peptide Total Protein 7.1 Albumin 4.0 Lipase 8 Procalcitonin 0.06 Urine Color Urine Appearance Urine pH Ur Specific [place] Urine Protein Urine Glucose (UA) Urine Ketones Urine Blood Urine Nitrite Ur Leukocyte Esterase Ethyl Alcohol 66 Influenza Type A (PCR) Influenza Type B (PCR) RSV RNA Qual (PCR) SARS-CoV-2 RNA (RT-PCR) 07/10/25 07/10/25 04:15 07:16 WBC 6.9 RBC 3.30 L Hgb 11.3 L Hct 32.2 L MCV 97.6 MCH 34.2 H MCHC 35.1 RDW 12.6 Plt Count 168 MPV 9.2 L Immature Gran % (Auto) Neut % (Auto) Lymph % (Auto) [place] % (Auto) Eos % (Auto) Baso % (Auto) Lymph # (Auto) [place] # (Auto) Eos # (Auto) Baso # (Auto) Abs Immat Gran (auto) Absolute Neuts (auto) Absolute Nucleated RBC 0.000 Nucleated RBC % (auto) 0.0 PT 30.2 H D INR 2.6 H VBG pH VBG pCO2 VBG pO2 VBG HCO3 VBG O2 Saturation VBG Base Excess Sodium 131 L Potassium 4.7 Chloride 97 Carbon Dioxide 27 Anion Gap 12 BUN 23 H Creatinine 1.23 Estim Creat Clear Calc 73.6 Estimated GFR 59 POC Glucose Random Glucose 131 H Lactic Acid Calcium 8.9 Magnesium 2.0 Total Bilirubin Direct Bilirubin AST ALT Alkaline Phosphatase Lactate Dehydrogenase Troponin I High Sens C-Reactive Protein B-Natriuretic Peptide Total Protein Albumin Lipase Procalcitonin Urine Color Yellow Urine Appearance Clear Urine pH 6.0 Ur Specific [place] 1.010 Urine Protein Negative Urine Glucose (UA) Negative Urine Ketones Negative Urine Blood Negative Urine Nitrite Negative Ur Leukocyte Esterase Negative Ethyl Alcohol Influenza Type A (PCR) Influenza Type B (PCR) RSV RNA Qual (PCR) SARS-CoV-2 RNA (RT-PCR) Imaging Radiology Impressions: ITS Impressions Chest X-Ray 07/09/25 09:22 IMPRESSION: Acute on chronic airspace disease. Electronically signed by: Enrique Nieves MD 07/09/2025 10:38 AM EDT Mental Status Exam Mental Status Exam Level of Consciousness: Awake, Appropriate and Alert Patient Behavior: Appropriate and Talkative Mood Description: Calm Affect Description: Calm Speech Pattern: Clear Hallucinations: None Thought Process: Intact Thought Content: positive for Intact and positive for Circumstantial Judgement: Fair Medications Medications Current Medications Acetaminophen (Acetaminophen 325 Mg Tablet) 650 mg PO Q6H PRN PRN Reason: Pain, Mild 1-3,fever,headache Last Admin: 07/10/25 05:12 Dose: 650 mg Albuterol/Ipratropium (Albuterol/Iprat 2.5/0.5mg 3 Ml Ampul.Neb) 3 ml INHALE RQ4H WHILE AWAKE PRN PRN Reason: sob Ascorbic Acid (Ascorbic Acid 500 Mg Tablet) 500 mg PO BID [facility] Last Admin: 07/10/25 08:29 Dose: 500 mg Atorvastatin Calcium (Atorvastatin Calcium 20 Mg Tablet) 20 mg PO DAILY [facility] Last Admin: 07/10/25 08:29 Dose: 20 mg Calcium Carbonate (Calcium Carbonate 750 Mg Tab.Chew) 750 mg PO Q4H PRN PRN Reason: Heartburn Fluticasone/Vilanterol (Fluticasone/Vilanterol 200/25 Blst.W.Dev) 1 puff INHALE RDAILY [facility] Last Admin: 07/10/25 11:31 Dose: 1 puff Furosemide (Furosemide 20 Mg Tablet) 10 mg PO BEDTIME [facility]; Protocol Last Admin: 07/09/25 21:44 Dose: 10 mg Furosemide (Furosemide 20 Mg Tablet) 20 mg PO DAILY [facility]; Protocol Last Admin: 07/10/25 08:29 Dose: 20 mg Levofloxacin (Levaquin) 750 mg in 150 mls @ 100 mls/hr IV Q24H [facility] Last Admin: 07/10/25 11:18 Dose: 100 mls/hr Thiamine HCl 100 mg/ Sodium (Chloride) 101 mls @ 202 mls/hr IV DAILY [facility] Stop: 07/12/25 08:59 Last Infusion: 07/10/25 09:05 Dose: Infused Magnesium Hydroxide (Milk Of Magnesia 30 Ml Oral.Susp) 30 ml PO DAILY PRN PRN Reason: Constipation Melatonin (Melatonin 3 Mg Tablet) 6 mg PO BEDTIME PRN PRN Reason: Insomnia Methadone HCl (Methadone Hcl 20 Mg/2 Ml Oral.Conc) 125 mg PO DAILY [facility] Last Admin: 07/10/25 11:15 Dose: 125 mg Methylprednisolone Sodium Succinate (Methylprednisolone Sod Succ 40 Mg/Ml Vial) 40 mg IVPUSH Q12H [facility] Last Admin: 07/10/25 08:29 Dose: 40 mg Multivitamins/Vitamin C (Multivitamin Tablet) 1 tab PO DAILY [facility] Last Admin: 07/10/25 08:29 Dose: 1 tab Pharmacy Consult (Consult Rx Etoh Phenob Im/Po) 1 each MISCELLANE ONCE PRN; Protocol PRN Reason: Consult order Phenobarbital (Phenobarbital 15 Mg Tablet) 45 mg PO BID [facility] Stop: 07/11/25 21:01 Last Admin: 07/10/25 08:29 Dose: 45 mg Phenobarbital (Phenobarbital 15 Mg Tablet) 15 mg PO BID [facility] Stop: 07/13/25 21:01 Phenobarbital (Phenobarbital 15 Mg Tablet) 15 mg PO DAILY [facility] Stop: 07/15/25 09:01 Polyethylene Glycol (Polyethylene Glycol 3350 17 Gm Powd.Pack) 17 gm PO DAILY [facility] Last Admin: 07/10/25 08:32 Dose: 17 gm Senna/Docusate Sodium (Sennosides/Docusate Sodium Tablet) 1 tab PO BID PRN PRN Reason: Constipation Sodium Chloride (0.9 % Sodium Chloride Flush 3 Ml Syringe) 3 ml IVFLUSH QSHIFT [facility] Last Admin: 07/10/25 08:41 Dose: 3 ml Verapamil HCl (Verapamil Hcl Sr 120 Mg Tablet.Er) 120 mg PO DAILY [facility]; Protocol Last Admin: 07/10/25 11:29 Dose: 120 mg Vitamin D (Cholecalciferol (Vitamin D3) 25 Mcg Tablet) 50 mcg PO DAILY [facility] Last Admin: 07/10/25 08:29 Dose: 50 mcg Warfarin Sodium (Warfarin Sodium 6 Mg Tablet) 6 mg PO DAILY@1800 [facility] Last Admin: 07/09/25 18:52 Dose: 6 mg Allergies Allergies Allergy/AdvReac Type Severity Reaction Status Date / Time Penicillins Allergy Severe COMA Verified 07/09/25 10:05 ibuprofen Allergy Intermediate HIVES/STOMACHE Verified 07/09/25 10:05 UPSET tramadol Allergy Unknown Verified 07/09/25 10:05 Assessment & Plan Assessment & Plan (1) Alcohol use disorder, severe, dependence: Status: Acute Code(s): F10.20 - Alcohol dependence, uncomplicated Assessment and Plan: acute withdrawal, well managed with phenobarbital taper discussed and reinforced risks associated with alcohol and methadone patient takes B vitamins on a regular basis at home, 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 [facility] Past Medical History Medical History (Updated 07/10/25 @ 16:20 by Soraida Fowler CNP) Inguinal hernia COPD (chronic obstructive pulmonary disease) Venous stasis ulcer of lower extremity Chronic venous insufficiency Peripheral vascular disease Bipolar disorder DDD (degenerative disc disease), lumbar Swelling of thigh Open wound of right thigh Venous ulcer of right leg Cellulitis Hyperlipidemia Hypertensive cardiovascular disease Obesity hypoventilation syndrome Morbid obesity due to excess calories Chronic venous stasis dermatitis of both lower extremities Hepatitis C Sleep apnea Narcotic addiction Osteoarthritis Pulmonary embolism DVT (deep venous thrombosis) Chronic back pain Surgical History Surgical History Status post endovenous radiofrequency ablation of saphenous vein History of surgery on lower extremity (06/10/23) History of incision and drainage History of repair of cleft lip History of arthroscopy of both knees Social History Social History Household Members: Other Housing: House Do you presently have visiting nurse or other home services: Yes ([facility]) Alcohol intake: current Alcohol intake frequency: 3 or more drinks per day Alcohol type: hard liquor Comment: pt to sss Patient Tobacco Use Status: Current everyday Tobacco user Tobacco use type: Cigarette Cigarette Packs Per Day: 1 Cigarettes Per Day: 20.0 Years Smoked: 30 e-Cigarette/Vaping Use: Currently Using Second Hand Smoke Exposure: No Substance Use Type: Marijuana Advance Directives Date on File: 03/30/23 service: No Current occupational status: disabled
--- NOTE | 2025-07-10 16:10 | MHC.RECOVRN ---
TW met with the patient in to discuss current alcohol use and concerns related to increased risk of alcohol use and related problems.? On approach pt was sitting in bed watching TV, slightly diaphoretic, reporting mild nausea and ?shakiness?. Pt denies issues with eating/drinking and states he?s feeling ?better than when I got here?.. Pt is pleasant and engaged during the interview, however speech is circumstantial and pt frequently required redirection to return to the topic at hand.? Pt reports his drinking began to escalate about 1 year ago during football season and has progressively gotten worse. He reports he is ?not too sure? about quitting but does report it has gotten out of hand he would like to cut down.? Pt currently receiving Methadone 125mg daily at [facility] Discussed risk and reduction strategies including changing from liquor to beer, notifying his roommate, as an added support, of his desire to cut down his alcohol consumption, and adding nips to a mixer in order to sip it, allowing his drink to last longer. Pt agrees that informing his roommate of his desire for some change as an ideal starting point.? Provided pt with written resources and education such as additional harm reduction strategies, detox facilities if needed for future use, and pathways for recovery. Pt declines intervention, [facility], or outpatient appt for treatment related to AUD at this time.? ? Pt was provided with TW?s contact information if questions or concerns arise. Pt denies further questions or concerns at this time.?
--- NOTE | 2025-07-10 18:13 | P.PNIM_ITS ---
Subjective Subjective Date of Service: 07/10/25 Interval History: alcohol withdrawals ,copd Review of Systems mild tremers sob seems similar Physical Exam 2 Exam: Exam: Appearance: Alert.? Oriented X3.? cvs: rrr, [id number] , no murmur res: air entry diminshed ,has rhonchii abd: no rebound or guarding ,nt, bs present. ext pulses present , no cyanosis . neuro: axo3 , nonfocal. Vital Signs: Vital Signs: Last Vital Signs Temp 98.1 F 07/10/25 16:00 Pulse 75 07/10/25 16:00 Resp 18 07/10/25 16:00 BP 135/63 07/10/25 16:00 Pulse Ox 92 07/10/25 16:00 O2 Del Method Oxymask 07/10/25 16:00 O2 Flow Rate 1 07/10/25 16:00 BMI result Body Mass Index 39.2 Objective Data Active Medications Acetaminophen (Acetaminophen 325 Mg Tablet) 650 mg PO Q6H PRN PRN Reason: Pain, Mild 1-3,fever,headache Last Admin: 07/10/25 17:11 Dose: 650 mg Documented By: BRENNAN Albuterol/Ipratropium (Albuterol/Iprat 2.5/0.5mg 3 Ml Ampul.Neb) 3 ml INHALE RQ4H WHILE AWAKE PRN PRN Reason: sob Ascorbic Acid (Ascorbic Acid 500 Mg Tablet) 500 mg PO BID [facility] Last Admin: 07/10/25 08:29 Dose: 500 mg Documented By: BRENNAN Atorvastatin Calcium (Atorvastatin Calcium 20 Mg Tablet) 20 mg PO DAILY [facility] Last Admin: 07/10/25 08:29 Dose: 20 mg Documented By: BRENNAN Calcium Carbonate (Calcium Carbonate 750 Mg Tab.Chew) 750 mg PO Q4H PRN PRN Reason: Heartburn Fluticasone/Vilanterol (Fluticasone/Vilanterol 200/25 Blst.W.Dev) 1 puff INHALE RDAILY [facility] Last Admin: 07/10/25 11:31 Dose: 1 puff Documented By: HILARIO Furosemide (Furosemide 20 Mg Tablet) 10 mg PO BEDTIME [facility]; Protocol Last Admin: 07/09/25 21:44 Dose: 10 mg Documented By: TADEO Furosemide (Furosemide 20 Mg Tablet) 20 mg PO DAILY [facility]; Protocol Last Admin: 07/10/25 08:29 Dose: 20 mg Documented By: BRENNAN Levofloxacin (Levaquin) 750 mg in 150 mls @ 100 mls/hr IV Q24H [facility] Last Infusion: 07/10/25 12:48 Dose: Infused Documented By: BRENNAN Thiamine HCl 100 mg/ Sodium (Chloride) 101 mls @ 202 mls/hr IV DAILY [facility] Stop: 07/12/25 08:59 Last Infusion: 07/10/25 09:05 Dose: Infused Documented By: BRENNAN Magnesium Hydroxide (Milk Of Magnesia 30 Ml Oral.Susp) 30 ml PO DAILY PRN PRN Reason: Constipation Melatonin (Melatonin 3 Mg Tablet) 6 mg PO BEDTIME PRN PRN Reason: Insomnia Methadone HCl (Methadone Hcl 20 Mg/2 Ml Oral.Conc) 125 mg PO DAILY [facility] Last Admin: 07/10/25 11:15 Dose: 125 mg Documented By: BRENNAN Co-signed By: SAMARA Methylprednisolone Sodium Succinate (Methylprednisolone Sod Succ 40 Mg/Ml Vial) 40 mg IVPUSH Q12H [facility] Last Admin: 07/10/25 08:29 Dose: 40 mg Documented By: BRENNAN Multivitamins/Vitamin C (Multivitamin Tablet) 1 tab PO DAILY [facility] Last Admin: 07/10/25 08:29 Dose: 1 tab Documented By: BRENNAN Pharmacy Consult (Consult Rx Etoh Phenob Im/Po) 1 each MISCELLANE ONCE PRN; Protocol PRN Reason: Consult order Phenobarbital (Phenobarbital 15 Mg Tablet) 45 mg PO BID [facility] Stop: 07/11/25 21:01 Last Admin: 07/10/25 08:29 Dose: 45 mg Documented By: BRENNAN Phenobarbital (Phenobarbital 15 Mg Tablet) 15 mg PO BID [facility] Stop: 07/13/25 21:01 Phenobarbital (Phenobarbital 15 Mg Tablet) 15 mg PO DAILY [facility] Stop: 07/15/25 09:01 Polyethylene Glycol (Polyethylene Glycol 3350 17 Gm Powd.Pack) 17 gm PO DAILY [facility] Last Admin: 07/10/25 08:32 Dose: 17 gm Documented By: BRENNAN Senna/Docusate Sodium (Sennosides/Docusate Sodium Tablet) 1 tab PO BID PRN PRN Reason: Constipation Sodium Chloride (0.9 % Sodium Chloride Flush 3 Ml Syringe) 3 ml IVFLUSH QSHIFT [facility] Last Admin: 07/10/25 17:13 Dose: 3 ml Documented By: BRENNAN Verapamil HCl (Verapamil Hcl Sr 120 Mg Tablet.Er) 120 mg PO DAILY [facility]; Protocol Last Admin: 07/10/25 11:29 Dose: 120 mg Documented By: BRENNAN Vitamin D (Cholecalciferol (Vitamin D3) 25 Mcg Tablet) 50 mcg PO DAILY [facility] Last Admin: 07/10/25 08:29 Dose: 50 mcg Documented By: BRENNAN Warfarin Sodium (Warfarin Sodium 6 Mg Tablet) 6 mg PO DAILY@1800 [facility] Last Admin: 07/10/25 17:43 Dose: 6 mg Documented By: BRENNAN Labs 07/10/25 07:16 07/10/25 07:16 Labs: Laboratory Results - last 24 hr 07/10/25 07/10/25 04:15 07:16 MCV 97.6 MCH 34.2 H MCHC 35.1 RDW 12.6 Plt Count 168 MPV 9.2 L Absolute Nucleated RBC 0.000 Nucleated RBC % (auto) 0.0 PT 30.2 H D INR 2.6 H Anion Gap 12 Estim Creat Clear Calc 73.6 Estimated GFR 59 Random Glucose 131 H Calcium 8.9 Magnesium 2.0 Urine Color Yellow Urine Appearance Clear Urine pH 6.0 Ur Specific [place] 1.010 Urine Protein Negative Urine Glucose (UA) Negative Urine Ketones Negative Urine Blood Negative Urine Nitrite Negative Ur Leukocyte Esterase Negative Microbiology Microbiology Results: Microbiology 07/09/25 10:23 Blood Culture - Preliminary Blood - Venous No growth after 24 hours. 07/09/25 10:23 Blood Culture - Preliminary Blood - Venous No growth after 24 hours. Assessment and Plan (1) Alcohol use disorder, severe, dependence: Status: Acute Plan 70M PMH COPD, etoh dependence, morbid obesity, DVT/PE on warfaron, chronic LE lymphedema, HTN, CKD III, PVD, opiate dependence on methadone, HCV presented with shortness of breath and cough Sepsis (not severe) and acute hypoxic respiratory failure due to COPD with acute decompensation and possible pneumonia Levofloxacin, IV Solu-Medrol, DuoNebs, wean O2 as tolerated Follow up cultures Alcohol dependence with withdrawal ciwa 6 Phenobarbital protocol Chronic opiate dependence Continue methadone once verified History of DVT/PE Continue warfarin and monitor INR Morbid obesity Weight loss recommended Chronic lymphedema Compression Full code. ongoing need :Sepsis (not severe) and acute hypoxic respiratory failure due to COPD with acute decompensation and possible pneumonia-moniter ciwa scale ,iv antiobiotics. Quality Stroke Does the patient have a stroke diagnosis?: No VTE Prior VTE?: Yes VTE Risk Level:: Medical - moderate - high VTE Device Contraindication: Treatment Not Indicated VTE Drug Contraindication: N/A - Med Ordered
[2025-07-10] MEDS: Milk of Magnesia 30 ML ORAL.SUSP PO (21:25)
[2025-07-11] VITALS (9 sets, daily range): BP systolic 120–154; BP diastolic 62–82; PULSE 59–97; RESP 18–20; TEMP 36.4–37.2; O2SAT 91–94
[2025-07-11] MEDS: Albuterol/Iprat 2.5/0.5MG 3 ML AMPUL.NEB INHALE (05:46)
[2025-07-11 07:11] LABS: INTERNATIONAL NORM RATIO 3.3 (0.9-1.1); Prothrombin Time 37.9 SEC (10.9-12.4)
[2025-07-11] MEDS: Fluticasone/Vilanterol 200/25 BLST.W.DEV 1 PUFF INHALE (07:41)
[2025-07-11] MEDS: 0.9 % Sodium Chloride Flush 3 ML SYRINGE IVFLUSH ×3 (09:12→21:15)
[2025-07-11] MEDS: VerapamiL HCL SR 120 MG TABLET.ER PO (09:13)
[2025-07-11] MEDS: Thiamine HCL 100 MG in 0.9 % Sodium Chloride 100 ML 202 MG IV (09:15)
[2025-07-11] MEDS: methADONE HCl 20 MG/2 ML ORAL.CONC 125 MG PO (09:16)
--- NOTE | 2025-07-11 17:29 | HO.PM.IMPN ---
Subjective Subjective Date of Service: 07/11/25 Interval History: alcohol withdrawals ,copd Review of Systems mild tremers,sob seems similar Review of Systems: Yes all other systems are reviewed and are negative Physical Exam Exam: Exam: Appearance: Alert.? Oriented X3.? cvs: rrr, [id number] , no murmur res: air entry diminshed ,has rhonchii abd: no rebound or guarding ,nt, bs present. ext pulses present , no cyanosis . neuro: axo3 , nonfocal. Vital Signs: Vital Signs: Last Vital Signs Temp 98.4 F 07/11/25 15:43 Pulse 66 07/11/25 15:43 Resp 18 07/11/25 15:43 BP 153/70 H 07/11/25 15:43 Pulse Ox 92 07/11/25 15:43 O2 Del Method Room Air 07/11/25 15:43 O2 Flow Rate 1 07/11/25 07:04 BMI result Body Mass Index 39.2 Objective Data Active Medications Acetaminophen (Acetaminophen 325 Mg Tablet) 650 mg PO Q6H PRN PRN Reason: Pain, Mild 1-3,fever,headache Last Admin: 07/10/25 23:24 Dose: 650 mg Documented By: DENICE Albuterol/Ipratropium (Albuterol/Iprat 2.5/0.5mg 3 Ml Ampul.Neb) 3 ml INHALE RQ4H WHILE AWAKE PRN PRN Reason: sob Last Admin: 07/11/25 05:46 Dose: 3 ml Documented By: AUDREY Ascorbic Acid (Ascorbic Acid 500 Mg Tablet) 500 mg PO BID [facility] Last Admin: 07/11/25 09:13 Dose: 500 mg Documented By: EMRE Atorvastatin Calcium (Atorvastatin Calcium 20 Mg Tablet) 20 mg PO DAILY [facility] Last Admin: 07/11/25 09:14 Dose: 20 mg Documented By: EMRE Calcium Carbonate (Calcium Carbonate 750 Mg Tab.Chew) 750 mg PO Q4H PRN PRN Reason: Heartburn Fluticasone/Vilanterol (Fluticasone/Vilanterol 200/25 Blst.W.Dev) 1 puff INHALE RDAILY [facility] Last Admin: 07/11/25 07:41 Dose: 1 puff Documented By: JEVON Furosemide (Furosemide 20 Mg Tablet) 10 mg PO BEDTIME VARGAS; Protocol Furosemide (Furosemide 20 Mg Tablet) 20 mg PO DAILY VARGAS; Protocol Levofloxacin (Levaquin) 750 mg in 150 mls @ 100 mls/hr IV Q24H VARGAS Last Infusion: 07/11/25 15:41 Dose: Infused Documented By: EMRE Thiamine HCl 100 mg/ Sodium (Chloride) 101 mls @ 202 mls/hr IV DAILY VARGAS Stop: 07/12/25 08:59 Last Infusion: 07/11/25 10:30 Dose: Infused Documented By: EMRE Magnesium Hydroxide (Milk Of Magnesia 30 Ml Oral.Susp) 30 ml PO DAILY PRN PRN Reason: Constipation Last Admin: 07/10/25 21:25 Dose: 30 ml Documented By: DENICE Melatonin (Melatonin 3 Mg Tablet) 6 mg PO BEDTIME PRN PRN Reason: Insomnia Methadone HCl (Methadone Hcl 20 Mg/2 Ml Oral.Conc) 125 mg PO DAILY [facility] Last Admin: 07/11/25 09:16 Dose: 125 mg Documented By: EMRE Co-signed By: JONAH Methylprednisolone Sodium Succinate (Methylprednisolone Sod Succ 40 Mg/Ml Vial) 40 mg IVPUSH Q12H [facility] Last Admin: 07/11/25 09:15 Dose: 40 mg Documented By: EMRE Multivitamins/Vitamin C (Multivitamin Tablet) 1 tab PO DAILY [facility] Last Admin: 07/11/25 09:31 Dose: 1 tab Documented By: EMRE Pharmacy Consult (Consult Rx Etoh Phenob Im/Po) 1 each MISCELLANE ONCE PRN; Protocol PRN Reason: Consult order Phenobarbital (Phenobarbital 15 Mg Tablet) 45 mg PO BID [facility] Stop: 07/11/25 21:01 Last Admin: 07/11/25 09:13 Dose: 45 mg Documented By: EMRE Phenobarbital (Phenobarbital 15 Mg Tablet) 15 mg PO BID [facility] Stop: 07/13/25 21:01 Phenobarbital (Phenobarbital 15 Mg Tablet) 15 mg PO DAILY [facility] Stop: 07/15/25 09:01 Polyethylene Glycol (Polyethylene Glycol 3350 17 Gm Powd.Pack) 17 gm PO DAILY [facility] Last Admin: 07/11/25 09:13 Dose: 17 gm Documented By: EMRE Senna/Docusate Sodium (Sennosides/Docusate Sodium Tablet) 1 tab PO BID PRN PRN Reason: Constipation Sodium Chloride (0.9 % Sodium Chloride Flush 3 Ml Syringe) 3 ml IVFLUSH QSHIFT [facility] Last Admin: 07/11/25 15:42 Dose: 3 ml Documented By: EMRE Verapamil HCl (Verapamil Hcl Sr 120 Mg Tablet.Er) 120 mg PO DAILY [facility]; Protocol Last Admin: 07/11/25 09:13 Dose: 120 mg Documented By: EMRE Vitamin D (Cholecalciferol (Vitamin D3) 25 Mcg Tablet) 50 mcg PO DAILY [facility] Last Admin: 07/11/25 09:14 Dose: 50 mcg Documented By: EMRE Warfarin Sodium (Warfarin Sodium 6 Mg Tablet) 6 mg PO DAILY@1800 [facility] On Hold: 07/11/25 11:54 Resume: 07/12/25 09:00 Last Admin: 07/10/25 17:43 Dose: 6 mg Documented By: NENANLYM Labs 07/10/25 07:16 07/10/25 07:16 Labs: Laboratory Results - last 24 hr 07/11/25 05:59 Hold Purple Top SEE NOTE PT 37.9 H D INR 3.3 H Hold Green Top See Note Microbiology Microbiology Results: Microbiology 07/09/25 10:23 Blood Culture - Preliminary Blood - Venous No growth after 48 hours. 07/09/25 10:23 Blood Culture - Preliminary Blood - Venous No growth after 48 hours. 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 Full code. ongoing need :Sepsis (not severe) and acute hypoxic respiratory failure due to COPD with acute decompensation and possible pneumonia-moniter ciwa scale ,iv antiobiotics. Quality Stroke Does the patient have a stroke diagnosis?: No VTE Prior VTE?: Yes VTE Risk Level:: Medical - moderate - high VTE Device Contraindication: Treatment Not Indicated VTE Drug Contraindication: N/A - Med Ordered
[2025-07-12 03:22] VITALS: BP 147/71; PULSE 58; RESP 18; TEMP 36.6; O2SAT 94
[2025-07-12 06:48] LABS: INTERNATIONAL NORM RATIO 3.1 (0.9-1.1); Prothrombin Time 35.2 SEC (10.9-12.4)
[2025-07-12] MEDS: Fluticasone/Vilanterol 200/25 BLST.W.DEV 1 PUFF INHALE (07:50)
[2025-07-12 07:51] VITALS: PULSE 110; RESP 18; O2SAT 93
[2025-07-12 08:00] VITALS: BP 148/69; PULSE 82; RESP 20; TEMP 36.5; O2SAT 90
--- NOTE | 2025-07-12 08:16 | HE.PHANOTE ---
LEVOFLOXACIN IV TO PO SWITCH PER POLICY 750MG IV CHANGED TO PO Q 24H. NEXT DOSE 1200 ON 07/12
[2025-07-12] MEDS: 0.9 % Sodium Chloride Flush 3 ML SYRINGE IVFLUSH (08:53)
[2025-07-12] MEDS: methADONE HCl 20 MG/2 ML ORAL.CONC 125 MG PO (08:55)
[2025-07-12] MEDS: VerapamiL HCL SR 120 MG TABLET.ER PO (09:02)
--- NOTE | 2025-07-12 11:26 | MHC.CM.PN ---
Pt is medically cleared for discharge home with resumption of [facility], [facility], and outpt methadone at [facility]. Pts [facility] will transport him home today. Last dose letter given to pt.
[2025-07-12 12:00] VITALS: BP 136/74; PULSE 95; RESP 20; TEMP 37.2; O2SAT 93
--- NOTE | 2025-07-12 14:48 | PM.DS ---
DS: Providers Provider Date of Service: 07/12/25 Date of admission: 07/09/25 12:08 Date of discharge: 07/12/25 Primary care physician: Naomie Brandon MD Consults: 07/09/25 12:30 Addiction Medicine Provider Routine Consulting Provider: Addiction Covering Reason for consultation: etoh, (and opiate stbale on methadone) 07/09/25 18:46 Consult to Wound Care Routine Reason for consultation: blanchable redness to coccyx Attending physician on discharge: Kellen Abreu Discharging clinician: Kellen Abreu DS: Diagnosis Discharge Diagnosis (1) Alcohol use disorder, severe, dependence: Status: Acute DS: Summary Hospital Course Hospital Course: hpi:70M PMH COPD, etoh dependence, morbid obesity, 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 Patient states symptoms began about 2 weeks prior to presentation. Has been having cough with yellow sputum worsening over the last 2 weeks associated with midsternal chest pain that is reproducible and worse with cough. Also having shortness breath worse on exertion. Reporting subjective fevers and chills. Denies sick contacts. In ED noted to be hypoxic to mid 80s on room air requiring 4 L. chest x-ray with acute on chronic airspace disease. Patient reports drinking 10 nips of Ji Beam per day, last drink day prior to presentation starting to feel jittery. plan: Patient was admitted for sepsis secondary to acute hypoxemic respiratory failure in the setting of COPD and possible cap: Patient was started on IV antibiotic, nebs, steroids, blood cultures sent, chest x-ray shows:Prominence of the individual markings with patchy opacities in the right lower hemithorax. Patient was initially started on Levaquin due to severe penicillin allergy. With the above management patient seems to be improved significantly, shortness of breaths improved, sats are in 90s in room air, asymptomatic. home oxygen eval done-patient did not qualify for home oxygen. Patient will be going home with p.o. Levaquin, prednisone. Consider Repeat chest imaging in 3 to 4 weeks to see resolution pneumonia. Has history of PE, on warfarin- Patient INR is supratherapeutic, warfarin will be on hold-please check INR on Tuesday, May adjust Coumadin according to INR. Goal of INR between 2-3. Discussed with the patient detail-avoid any bumping or fall, if any new symptoms go to nearest emergency room for further management. Strongly advised to abstain from alcohol use. ch hyponatremia : moniter bmp outpatient and further management outpatient with pcp. plan: Levaquin 750 mg p.o. q.d. for 2 days Prednisone 40 mg p.o. daily for 4 days Abstain from alcohol, avoid falls, monitor INR closely. On Tuesday if INR is between 2-3 then may start Coumadin back. Risk of high INR, alcohol use-discussed in with him in detail including fall, he understand him he says that he will not use alcohol as well as also discussed that antibiotics can interact with Coumadin, he agrees to take Levaquin for now. He will complete Levaquin in next 2 days and then start Coumadin after repeating INR on Tuesday because INR is supratherapeutic. Above management discussed with the patient detail length he understand and in agreement with the above plan, time spent 45 minute all question answered, staff was present during conversation. Time Attestation Total time managing care of this patient today: 45 mintues. Discharge Coordination Time (in mins): 45 min Quality: Safe Use of Opioids Does Pt have an Active Cancer Diagnosis on the Problem List?: No Quality: Stroke Does the patient have a stroke diagnosis?: No Physical Exam Exam: Exam: Appearance: Alert.? Oriented X3.? cvs: rrr, [id number] , no murmur res: air entry diminshed ,has rhonchii abd: no rebound or guarding ,nt, bs present. ext pulses present , no cyanosis . neuro: axo3 , nonfocal. Vital Signs: Vital Signs: Last Vital Signs Temp 98.9 F 07/12/25 12:00 Pulse 95 07/12/25 12:00 Resp 20 07/12/25 12:00 BP 136/74 07/12/25 12:00 Pulse Ox 93 07/12/25 12:00 O2 Del Method Room Air 07/12/25 12:00 O2 Flow Rate 1 07/11/25 07:04 BMI result Body Mass Index 39.2 DS: Data Data Completed and Pending Completed studies during hospitalization [Text1]: Procedures Drainage of Right Upper Leg Subcutaneous Tissue and Fascia, Open Approach (05/20/23) Respiratory Ventilation, Less than 24 Consecutive Hours (10/07/21) Supplement Right Inguinal Region with Synthetic Substitute, Open Approach (10/07/21) Labs on day of discharge: Laboratory Results - last 24 hr 07/12/25 06:21 Hold Purple Top SEE NOTE PT 35.2 H INR 3.1 H Preliminary micro results at discharge 07/09/25 10:23 Blood Culture - Preliminary Blood - Venous No growth after 48 hours. 07/09/25 10:23 Blood Culture - Preliminary Blood - Venous No growth after 48 hours. Imaging Chest x-ray: Radiologist's impression: ITS Impressions Chest X-Ray 07/09/25 09:22 IMPRESSION: Acute on chronic airspace disease. Discharge Plan Discharge Anticipated Discharge Date/Time: 07/12/25 14:13 Patient Disposition: Home, Self-Care Discharge Diagnosis: pneumonia ,supratherapeutic inr Referrals: [facility] [Outside] - 1 Week Naomie Brandon MD [Primary Care Provider, Medical] - 1 Week Discharge Medications: New levofloxacin 750 mg tablet 750 mg PO Q24H Qty: 2 0RF prednisone 20 mg Tablet 40 mg PO DAILY Qty: 8 0RF Continued sennosides-docusate sodium [Stool Softener-Stimulant Laxat] 8.6-50 mg tablet 1 tab PO BID PRN (Reason: Constipation) ascorbic acid (vitamin C) [Vitamin C] 500 mg tablet 1 tab PO BID furosemide 20 mg tablet 1 tab PO DAILY rosuvastatin 10 mg tablet 1 tab PO DAILY ([place] [facility] [place] Instructions .Route Qty: 1 0RF Rx Instructions: As directed cholecalciferol (vitamin D3) 50 mcg (2,000 unit) tablet 50 mcg PO DAILY omega 5-zuk-edw-fish oil 1,000 mg (120 mg-180 mg) capsule 1 cap PO DAILY fluticasone propion-salmeterol [Wixela Inhub] 250-50 mcg/dose blister with device 1 ea INHALATION BID verapamil 120 mg capsule,ext rel. pellets 24 hr 120 mg PO DAILY methadone 10 mg/mL concentrate 125 mg PO DAILY polyethylene glycol 3350 17 gram powder in packet 17 g PO DAILY furosemide 20 mg tablet 10 mg PO BEDTIME (DME) sterile gauze 4x4 See Rx Instructions .Route .MEDSUPPLY Qty: 50 2RF Rx Instructions: As directed (DME) tape 1 inch 1 roll See Rx Instructions .Route .MEDSUPPLY Qty: 1 2RF Rx Instructions: As directed lisinopril 10 mg tablet 5 mg PO DAILY vitamin B complex-folic acid [B Complex 1 (with folic acid)] 0.4 mg tablet 1 tab PO DAILY Held warfarin 3 mg tablet 6 mg PO DAILY@1800 Hold Instructions: Resume on 07/15/25. Discharge Orders: Discharge Order (Routine); Ordered 07/12/25 Ordered By: Kellen Abreu Diet: Advance to usual diet Activity on Discharge: As tolerated Stand Alone Forms: Patient Portal Discharge page Print Language: Malagasy Other Ambulatory Orders: Basic Metabolic Panel (Routine) Timeframe: 1 Week Facility: [facility] - Location: Laboratory Ordered By: Kellen Abreu Complete Blood Count no Diff (Routine) Timeframe: 1 Week Facility: [facility] - Location: Laboratory Ordered By: Kellen Abreu Prothrombin Time INR (Routine) Timeframe: 1 Week Facility: [facility] - Location: Laboratory Ordered By: Kellen Abreu Care Plan Goals: Patient was admitted for sepsis secondary to acute hypoxemic respiratory failure in the setting of COPD and possible cap: Patient was started on IV antibiotic, nebs, steroids, blood cultures sent, chest x-ray shows:Prominence of the individual markings with patchy opacities in the right lower hemithorax. Patient was initially started on Levaquin due to severe penicillin allergy. With the above management patient seems to be improved significantly, shortness of breaths improved, sats are in 90s in room air, asymptomatic. home oxygen eval pending Patient will be going home with p.o. Levaquin, prednisone. Consider Repeat chest imaging in 3 to 4 weeks to see resolution pneumonia. Has history of PE, on warfarin- Patient INR is supratherapeutic, warfarin will be on hold-please check INR on Tuesday, May adjust Coumadin according to INR. Goal of INR between 2-3. Discussed with the patient detail-avoid any bumping or fall, if any new symptoms go to nearest emergency room for further management. Strongly advised to abstain from alcohol use. ch hyponatremia : moniter bmp outpatient and further management outpatient with pcp. Health Concerns: Levaquin 750 mg p.o. q.d. for 2 days Prednisone 40 mg p.o. daily for 4 days Abstain from alcohol, avoid falls, monitor INR closely. On Tuesday if INR is between 2-3 then may start Coumadin back. Plan of Treatment: As above. Assessment: As above. Patient Instructions: COPD (Chronic Obstructive Pulmonary Disease) (DC), Elevated INR (DC), Pneumonia (DC)
[2025-07-12 15:16] VITALS: PULSE 103; PULSE 113; O2SAT 90; O2SAT 94
[2025-07-12 15:31] VITALS: BP 142/72; PULSE 98; RESP 18; TEMP 36.4; O2SAT 93
== END 2025-07-12 15:45 | disposition home or self-care (01) | DRG 871 ==
LOC: HO.ED 11:39 → HO.EDOVER 12:10 → HO.IMC 17:03
PROVIDERS: Internal Medicine Nephrology; Admitting Provider Internal Medicine; Emergency Provider Emergency Medicine; PCP Internal Medicine; Visit Provider Internal Medicine
DX: A41.9 Sepsis, unspecified organism (principal); J18.9 Pneumonia, unspecified organism; J96.01 Acute respiratory failure with hypoxia; J44.0 Chronic obstructive pulmonary disease with (acute) lower respiratory infection; J44.1 Chronic obstructive pulmonary disease with (acute) exacerbation; F11.20 Opioid dependence, uncomplicated; E66.2 Morbid (severe) obesity with alveolar hypoventilation; F10.239 Alcohol dependence with withdrawal, unspecified; E87.1 Hypo-osmolality and hyponatremia; N18.32 Chronic kidney disease, stage 3b; Z68.39 Body mass index [BMI] 39.0-39.9, adult; Z79.01 Long term (current) use of anticoagulants; I12.9 Hypertensive chronic kidney disease with stage 1 through stage 4 chronic kidney disease, or unspecified chronic kidney disease; F17.210 Nicotine dependence, cigarettes, uncomplicated; R79.1 Abnormal coagulation profile; Y90.3 Blood alcohol level of 60-79 mg/100 ml; Z20.822 Contact with and (suspected) exposure to COVID-19; Z71.6 Tobacco abuse counseling; Z86.718 Personal history of other venous thrombosis and embolism; Z86.711 Personal history of pulmonary embolism; Z79.51 Long term (current) use of inhaled steroids; Z79.899 Other long term (current) drug therapy
CPT/HCPCS: 36415; 71045; 80048; 80051; 80076; 80307; 81003; 82310; 82565; 82803; 82947; 83605; 83615; 83690; 83735; 83880; 84145; 84484; 84520; 85025; 85027; 85610; 86140; 87040; 87637; 93005; 94640; 97162; 99285; J1956; J2560; J2919; J3411; J7120; S9485

== ENCOUNTER → 2025-07-09 10:14 | Outpatient (BNV) | payer OTHER, SELFPAY | PROVIDERS: Emergency Provider Emergency Medicine; PCP Internal Medicine; Visit Provider Radiology Diagnostic Radiology | DX: R05.9 Cough, unspecified (principal); R50.9 Fever, unspecified; J84.89 Other specified interstitial pulmonary diseases | CPT/HCPCS: 71045 ==

== ENCOUNTER → 2025-07-09 10:14 | Outpatient (BNV) | payer OTHER, SELFPAY | PROVIDERS: Admitting Provider Internal Medicine; Emergency Provider Emergency Medicine; PCP Internal Medicine; Visit Provider Internal Medicine Cardiovascular Disease | DX: R06.02 Shortness of breath (principal) | CPT/HCPCS: 93010 ==

== ENCOUNTER → 2025-07-09 12:08 | Outpatient (BNV) | payer OTHER, SELFPAY | PROVIDERS: Admitting Provider Internal Medicine; Emergency Provider Emergency Medicine; PCP Internal Medicine; Visit Provider Internal Medicine | DX: N18.32 Chronic kidney disease, stage 3b (principal) | CPT/HCPCS: 99223; 99231; 99239 ==

== ENCOUNTER → 2025-07-09 12:08 | Outpatient (BNV) | payer OTHER, SELFPAY | PROVIDERS: Admitting Provider Internal Medicine; Emergency Provider Emergency Medicine; PCP Internal Medicine; Visit Provider Nurse Practitioner Psychiatric/Mental Health | DX: F10.20 Alcohol dependence, uncomplicated (principal) | CPT/HCPCS: 99222 ==

== ENCOUNTER 2025-07-17 14:20 | Outpatient (AMB) | payer OTHER, SELFPAY ==
--- NOTE | 2025-07-17 14:24 | A.OFFVIS_ITS ---
Vital Signs 07/17/25 14:25 Height 5 ft 9 in Weight 261 lb 2 oz BMI 38.6 BP 126/68 Blood Pressure Location Rt brachial Position Sitting Pulse 89 Pulse Source Pulse Oximeter Pulse Oximetry (%) 94 Oxygen Delivery Method Room Air Intake Visit Reasons: abnormal sputum Allergies Penicillins Allergy (Severe, Verified 07/17/25 14:28) COMA ibuprofen Allergy (Intermediate, Verified 07/17/25 14:28) HIVES/STOMACHE UPSET tramadol Allergy (Verified 07/17/25 14:28) Unknown HPI HPI abnormal sputum: Details: Jose is a pleasant 70 year old male, current 50+ pack year history, with underlying COPD, KEILA unable to tolerate CPAP h/o 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 He was referred by PCP for pulmonary evaluation for chronic cough. He reports ongoing cough over the summer treated with azithromycin with no change in symptoms, continuing with significant sputum production. Recently sputum color changed from yellow to green with worsening dyspnea prompting an ED visit. He was admitted to [facility] 07/09- 07/12 admitted for sepsis secondary to acute hypoxemic respiratory failure in the setting of COPD and CAP. Patient was started on IV antibiotic, nebs, steroids, blood cultures negative, chest x-ray revealed patchy opacities in the right lower hemithorax. Patient was initially started on Levaquin with significant improvement, increased sats in the 90s and asymptomatic. He was ultimately discharged on Levaquin and prednisone. Since discharge he reports 80%+ improve ment in symptoms, cough significantly improved mostly dry with little clear sputum production. He has been using Wixela with good effect rarely requiring albuterol MDI. He denies recurrent URI. He denies prior need for supplemental oxygen. He reports prior h/p unprovoked? DVT in 2008 and shortly after discontinuing after over a year of treatment developed PE in 2009 and has been maintained on Coumadin. He endorses family history of DVT/PE. Denies prior hypercoagulation workup and is not interested in referral to [facility] at this time. The patient reports a long history of smoking, starting at age 12, and has recently reduced his smoking to half a pack per day following a hospital discharge. He previously smoked up to two packs a day. Not interested in quitting at this time. The patient has a history of sleep apnea but has not used a CPAP machine due to discomfort and a feeling of being smothered. He has not undergone a sleep study and expresses reluctance to do so. [facility] Medical History (Updated 07/17/25 @ 20:12 by Lore Gallego NP) Inguinal hernia COPD (chronic obstructive pulmonary disease) Venous stasis ulcer of lower extremity Chronic venous insufficiency Peripheral vascular disease Bipolar disorder DDD (degenerative disc disease), lumbar Swelling of thigh Open wound of right thigh Venous ulcer of right leg Cellulitis Hyperlipidemia Hypertensive cardiovascular disease Obesity hypoventilation syndrome Morbid obesity due to excess calories Chronic venous stasis dermatitis of both lower extremities Hepatitis C Sleep apnea Narcotic addiction Osteoarthritis Pulmonary embolism DVT (deep venous thrombosis) Chronic back pain Surgical History Status post endovenous radiofrequency ablation of saphenous vein History of surgery on lower extremity (06/10/23) History of incision and drainage History of repair of cleft lip History of arthroscopy of both knees Social History (Updated 07/17/25 @ 14:27 by Kalli Patton CMA) Household Members: Other Housing: House Do you presently have visiting nurse or other home services: Yes ([facility]) Alcohol intake: current Alcohol intake frequency: 3 or more drinks per day Alcohol type: hard liquor Comment: pt to sss Patient Tobacco Use Status: Current everyday Tobacco user Tobacco use type: Cigarette Cigarette Packs Per Day: 0.5 Cigarettes Per Day: 11 Years Smoked: 30 e-Cigarette/Vaping Use: Currently Using Second Hand Smoke Exposure: No Substance Use Type: Marijuana Advance Directives Date on File: 03/30/23 service: No Current occupational status: disabled Physical Exam Vital Signs: Last Vital Signs Pulse 89 07/17/25 14:25 BP 126/68 07/17/25 14:25 Pulse Ox 94 07/17/25 14:25 Oxygen Delivery Method Room Air 07/17/25 14:25 BMI result Body Mass Index 38.6 Office Procedures 6 Minute Walk Time:: 14:59 SPO2 % at rest: 93 Pulse at rest: 99 SPO2 % during excercise: 90 Pulse during excercise: 130 SPO2 % after excercise: 94 Pulse after excercise: 124 Distance in yards walked: 1,000 Ruth Ann Score: 6 Performance Observations:: Patient walked on level ground with the use of a cane in his right hand. Gait was steady and moderately paced. Patient maintained O2 saturation of 90-94% with pulse rate between 99-130. Patient kept up a conversation for the entirety of the walk. He reports he does tire easily due to deconditioning. Patient did not require the use of supplemental oxygen. [address] - 6 Minute Walk Results Reviewed Results Reviewed: [address] [address] [address] Scan Report Signed Patient: Jose Naidu MR#: [id number] : 1955 Acct:[id number] Age/Sex: 70 / M ADM Date: 06/08/25 Loc: HO.CT Attending Dr: Filomena Morgan NP Ordering Physician: FILOMENA MORGAN NP Date of Service: 06/08/25 Procedure(s): CT chest wo IV con Accession Number(s): [id number] cc: FILOMENA MORGAN NP~ Report Number: [id number]: Total DLP = 691.00 mGy-cm CLINICAL HISTORY: other specified cough Exam: CT chest without IV contrast Comparison: CT/VT - CT CHEST ANGIOGRAPHY WITH IV CONTRAST - 05/29/24 12:38 EDT Findings: Mild upper lobe predominant centrilobular and paraseptal emphysema. New focal tree-in-bud micronodules of the right posterolateral upper lobe. No consolidation. No pleural effusion or pneumothorax. Right middle lobe 3 mm subpleural nodule laterally on series 3, image 89 is stable, stable subpleural micronodule on image 109. Right lower lobe subpleural 4 mm nodule on image 87 is stable. Lingula 3 mm nodule on image 98 is stable. A few punctate calcified and noncalcified micronodules are stable. No pleural effusion or pneumothorax. Central airway is patent. Heart size is normal. No pericardial effusion. Mild atherosclerotic calcification of the aorta, nonaneurysmal. Moderate coronary artery calcification. Large hiatal hernia containing mesenteric fat. Bilateral gynecomastia. No lymphadenopathy. Imaged lower neck, chest wall are unremarkable. Pancreatic lipomatosis. Right renal cysts, the larger cyst is partially seen. Hepatic steatosis. Degenerative spondylosis of the thoracic spine. Impression: 1. New focal tree-in-bud micronodules of the right posterolateral upper lobe, most likely infectious/inflammatory. No consolidation. 2. Stable sub 5 mm pulmonary nodules, most likely benign. 3. Emphysema. 4. Moderate coronary artery calcification. 5. Large fat containing hiatal hernia. 6. Hepatic steatosis. 7. Pancreatic lipomatosis. This document has been electronically signed by: Hanna Chauhan MD on 06/10/2025 16:16:41 Dictated By: Hanna Chauhan MD Signed By: <Electronically signed by Hanna Chauhan MD in OV> 06/10/251616 DD/ 15 TD/TT: 06/10/251615 Radiology Practitioner Assistant: Assessment & Plan Assessment & Plan (1) COPD (chronic obstructive pulmonary disease): Code(s): J44.9 - Chronic obstructive pulmonary disease, unspecified Category: Medical (2) History of recent pneumonia: Code(s): Z87.01 - Personal history of pneumonia (recurrent) Category: Medical (3) Nicotine dependence, cigarettes, uncomplicated: Code(s): F17.210 - Nicotine dependence, cigarettes, uncomplicated Category: Medical (4) Multiple pulmonary nodules: Code(s): R91.8 - Other nonspecific abnormal finding of lung field Category: Medical Plan Jose presents for pulmonary evaluation after recent admission for acute hypoxemic respiratory failure secondary to COPD and PNA. He was treated with Levaquin and prednisone with significant improvement in symptoms. He feels his symptoms are controlled with the use of Wixela, encouraged to continue. Patient hypoxic during hospitalization, 6MWT performed today and patient does not require supplemental oxygen at this time. We reviewed the need for PFT to assess severity of COPD which he was agreeable to. Will send for CXR to assess for resolution of PNA in 4-6 weeks and continue with annual Chest CT given smoking history as well as known pulmonary nodules, largest 4 mm. Will repeat 06/2026. He reports h/o KEILA previously unable to tolerate CPAP therapy and discussed repeating sleep study however he refused. He reports personal h/o DVT/PE and strong family history with no prior evaluation from hematology, declined further evaluation. All questions were answered and patient is in agreement of plan. Will follow up to review results or sooner if needed. Orders: Orders XR chest 2V 4 Weeks J18.9 - Pneumonia, unspecified organism PFT pulmonary function test Today J44.9 - Chronic obstructive pulmonary disease, unspecified CT chest wo IV con 11 Months R91.8 - Other nonspecific abnormal finding of lung field AMB 6 minute walk Today J45.909 - Unspecified asthma, uncomplicated Coding Level of Care Code New Pt Level 4 (56363) Complex EM visit Add On G2211 Diagnoses COPD (chronic obstructive pulmonary disease) J44.9 History of recent pneumonia Z87.01 Nicotine dependence, cigarettes, uncomplicated F17.210 Multiple pulmonary nodules R91.8 CPT Codes Coding ([id number])
[2025-07-17 14:25] VITALS: BP 126/68; PULSE 89; O2SAT 94; BMI 38.6
[2025-07-17 15:20] VITALS: PULSE 99; O2SAT 93
== END 2025-07-17 15:20 | disposition home or self-care (01) ==
LOC: HO.HPSW 14:21
PROVIDERS: PCP Internal Medicine; Visit Provider Nurse Practitioner Family
DX: J44.9 Chronic obstructive pulmonary disease, unspecified (principal); Z87.01 Personal history of pneumonia (recurrent); F17.210 Nicotine dependence, cigarettes, uncomplicated; R91.8 Other nonspecific abnormal finding of lung field
CPT/HCPCS: 94618; 99204; G2211

== ENCOUNTER → 2025-07-17 14:20 | Outpatient (BNVA) | payer OTHER, SELFPAY | PROVIDERS: PCP Internal Medicine; Visit Provider Nurse Practitioner Family | DX: J44.9 Chronic obstructive pulmonary disease, unspecified (principal); R91.8 Other nonspecific abnormal finding of lung field; F17.210 Nicotine dependence, cigarettes, uncomplicated; Z87.01 Personal history of pneumonia (recurrent) | CPT/HCPCS: 94618; 99202 ==

== ENCOUNTER 2025-09-03 09:36 | Outpatient (REF) | payer OTHER, SELFPAY ==
[2025-09-03 14:18] LABS: Anion Gap 12 (12-20); Blood Urea Nitrogen 29 mg/dL (9-16); Carbon Dioxide 31 mmol/L (22-29); Chloride 102 mmol/L (96-108); Estimated Glomerular Filt Rate 52; Potassium 4.7 mmol/L (3.3-5.1); Sodium 140 mmol/L (135-145)
== END 2025-09-03 09:37 | disposition home or self-care (01) ==
LOC: HO.HKASLDS 09:36
PROVIDERS: PCP Internal Medicine; Visit Provider Internal Medicine Nephrology
DX: N18.32 Chronic kidney disease, stage 3b (principal)
CPT/HCPCS: 36415; 80051; 82565; 84520

== ENCOUNTER 2025-09-05 14:02 | Outpatient (AMB) | payer OTHER, SELFPAY ==
--- NOTE | 2025-09-05 14:07 | HO.NEPHOV ---
Vital Signs 09/05/25 14:11 Height 5 ft 9 in Weight 262 lb 6 oz BMI 38.7 BP 120/68 Blood Pressure Location Lt brachial Position Sitting Intake Visit Reasons: 2mon f/u w/labs-Conf Commercial Artist Required: No Accompanied by: Self / Same As Patient Allergies Penicillins Allergy (Severe, Verified 09/05/25 14:11) COMA ibuprofen Allergy (Intermediate, Verified 09/05/25 14:11) HIVES/STOMACHE UPSET tramadol Allergy (Verified 09/05/25 14:11) Unknown HPI Comments Details: Jose was seen in follow up for chronic kidney disease and hypertension. He has history of peripheral arterial disease, carotid stenosis as well as hypertension. He is on SHANNON inhibitor. He denies being diabetic. He has history of drug use and is currently on methadone. He has history of renal calculi. He denies coronary artery disease, CVA, congestive heart failure, excessive nonsteroidal anti-inflammatory medication use, hypercalcemia, new bone or back pain, epistaxis, sinusitis, photosensitivity, joint swellings, hematuria or any urinary symptoms. He has no history of any active malignancy. His blood pressure is fairly well controlled on current medications. He denies nausea, vomiting, diarrhea, chest pain, paroxysmal nocturnal dyspnea, orthopnea or orthostatic symptoms. He has history of hepatitis which has been treated and is currently deemed as being cured. He has good urine output. He is closely followed by his PCP. [facility] Medical History (Updated 07/20/25 @ 00:02 by Juan Jain) Inguinal hernia COPD (chronic obstructive pulmonary disease) Venous stasis ulcer of lower extremity Chronic venous insufficiency Peripheral vascular disease Bipolar disorder DDD (degenerative disc disease), lumbar Swelling of thigh Open wound of right thigh Venous ulcer of right leg Cellulitis Hyperlipidemia Hypertensive cardiovascular disease Obesity hypoventilation syndrome Morbid obesity due to excess calories Chronic venous stasis dermatitis of both lower extremities Hepatitis C Sleep apnea Narcotic addiction Osteoarthritis Pulmonary embolism DVT (deep venous thrombosis) Chronic back pain Surgical History Status post endovenous radiofrequency ablation of saphenous vein History of surgery on lower extremity (06/10/23) History of incision and drainage History of repair of cleft lip History of arthroscopy of both knees Social History Household Members: Other Housing: House Do you presently have visiting nurse or other home services: Yes ([facility]) Alcohol intake: current Alcohol intake frequency: 3 or more drinks per day Alcohol type: hard liquor Comment: pt to sss Patient Tobacco Use Status: Current everyday Tobacco user Tobacco use type: Cigarette Cigarette Packs Per Day: 0.5 Cigarettes Per Day: 11 Years Smoked: 30 e-Cigarette/Vaping Use: Currently Using Second Hand Smoke Exposure: No Substance Use Type: Marijuana Advance Directives Date on File: 03/30/23 service: No Current occupational status: disabled Review of Systems Const All systems reviewed & are unremarkable except as noted in HPI and below Physical Exam Vital Signs: Last Vital Signs BP 120/68 09/05/25 14:11 BMI result Body Mass Index 38.7 Const General: comfortable and no acute distress Orientation/consciousness: patient oriented x3 HEENT Head: Yes normocephalic Mouth: Normal oral and palatal mucosa present Eyes EOM: EOMs intact bilaterally Neck Neck: Yes supple Resp Auscultation: clear to auscultation bilaterally Cardio Jugular venous distension: no JVD Rate: regular rate GI Palpation (GI): Soft to palpation Auscultation: normal bowel sounds General: Yes no CVA tenderness Back/Spine/Pelvis Back: no CVA tenderness Skin General skin exam: no rashes or lesions noted Neuro General: patient oriented x3 and moves all extremities Extrem General: Yes no pedal edema Results Reviewed Nephrology Results: Hgb, (14.0-18.0) 11.3 g/dl L 07/10/25 WBC, (4.8-10.8) 6.9 X10*3/uL 07/10/25 Plt Count, (160-400) 168 X10*3/uL 07/10/25 Sodium, (135-145) 140 mmol/L 09/03/25 Potassium, (3.3-5.1) 4.7 mmol/L 09/03/25 Chloride, (96-108) 102 mmol/L 09/03/25 Carbon Dioxide, (22-29) 31 mmol/L H 09/03/25 BUN, (9-16) 29 mg/dL H 09/03/25 Creatinine, (0.5-1.4) 1.37 mg/dL 09/03/25 Calcium, (8.4-10.2) 8.9 mg/dL 07/10/25 Phosphorus, (2.7-4.5) 3.6 mg/dL 07/04/25 PTH Intact, (8.7-77.1) 81.7 pg/mL H 07/04/25 Urine Protein, (Neg-Trace) Negative mg/dL 07/10/25 Assessment & Plan Assessment & Plan (1) Hypertension: Code(s): I10 - Essential (primary) hypertension Category: Medical Qualifiers: Hypertension type: primary hypertension Qualified Code(s): I10 - Essential (primary) hypertension (2) CKD stage 3b, GFR 30-44 ml/min: Code(s): N18.32 - Chronic kidney disease, stage 3b Category: Medical Plan Jose has CKD which is stable . His current GFR put him in CKD stage III B category. He is on SHANNON inhibitor. He is not on any SGLT2 inhibitor. He has carotid artery stenosis as well as PAD. He may be having renal artery stenosis. He was not able to do the Doppler of renal arteries. I plan to start him on low-dose Jardiance with time . He should maintain good hydration and avoid nonsteroidal anti-inflammatories. All these were explained in detail. Answered all questions and follow-up appointment was given Orders: Orders Electrolytes 3 Months I10 - Essential (primary) hypertension, N18.32 - Chronic kidney disease, stage 3b Creatinine 3 Months I10 - Essential (primary) hypertension, N18.32 - Chronic kidney disease, stage 3b Blood Urea Nitrogen 3 Months I10 - Essential (primary) hypertension, N18.32 - Chronic kidney disease, stage 3b Coding Level of Care Code Est Pt Level 4 (35677) Diagnoses Primary hypertension I10 Hypertension type: primary hypertension CKD stage 3b, GFR 30-44 ml/min N18.32
[2025-09-05 14:11] VITALS: BP 120/68; BMI 38.7
--- OUTSIDE RECORDS SUMMARY | 2025-09-05 17:03 | XMS_ITS | Data Portability ---
Author Organization [facility] [place] Department of Education [facility], Main Office Address [address], [address] [place] [address] Care Team Providers Care Information Technology Auditor Name Role Phone [facility] OTHER MYRNA MARTINS Primary Care Provider [phone] Assessment Encounter Date Assessment Date Assessment LastModified by Organization Details LastModified Time 04/18/2023 04/18/2023 04/08/23 wbc 6.5, hgb 10.4, plt 302, na 134, k 3.6, creat 0.9 [email or web address] Not available 04/18/2023 10:43:36 Plan of Treatment [...] and Address Organization Details Recorded Time Sepsis 38793994 Active 2022 Jeremy Arias MD [address] [place] [address], [address], [place], [address], [facility] 3 11:09:05 Venous stasis ulcer with edema of right lower leg 0486005232635 9106 Active 2022 Jeremy Arias MD [address], [address], [place], [address], [facility] 3 11:09:19 Chronic acquired lymphedema 74907308 Active 2022 Jeremy Arias MD [address], [address], [place], [address], [place] [facility] 3 11:09:34 Essential hypertensio n 96635954 Active 2022 Jeremy Arias MD [address], [address], [place], [address], [facility] 3 11:10:28 Opioid dependence 32304290 Active 2022 Jeremy Arias MD [address], [address], [place], [address], [facility] 3 11:10:38 Chronic hepatitis C 896851182 Active 2022 Jeremy Arias MD [address], [address], [place], [address], [facility] 3 11:10:47 Peripheral vascular disease 743672548 Active 2022 Jeremy Arias MD [address], [address], [place], [address], [facility] 3 11:10:52 Chronic obstructive pulmonary disease 62976903 Active 2022 Jeremy Arias MD [address], [address], [place], [address], [facility] 3 11:10:56 Morbid obesity 219916870 Active 2022 Jeremy Arias MD [address], [address], [place], [address], [facility] 3 11:11:04 Alcoholism 1528465 Active 2022 Jeremy Arias MD [address], [address], [place], [address], [facility] 3 11:30:31 Tobacco user 438347858 Active 2022 Jeremy Arias MD [address], [address], [place], [address], [facility] 3 11:30:37 History of intravenous drug abuse 5472704510624 9103 Active 2022 Jeremy Arias MD [address], [address], [place], [address], [facility] 3 11:30:43 Problem Notes None recorded. Medical Equipment None Reported. Allergies Allergen ID Allergen Name Allergen Category Reaction Reaction Severity Criticality Documentation Date Start Date Code Code System Note Provider Name and Address Organization Details Recorded Time 00327 Product containin g penicilli n (product) medicatio n anaphylax is Not available Not available 03/30/2023 47302 8001 SNOMED Jeremy Arias MD [address] [place] [address], [address], [place], [address], [facility] 3 11:08:33 30851 ibuprofen medicatio n Not available Not available Not available 03/30/2023 5640 RxNorm Jeremy Arias MD [address] [place] [address], [address], [place], [address], [facility] 3 11:08:40 24131 tramadol medicatio n Not available Not available Not available 03/30/2023 94118 RxNorm Jeremy Arias MD [address], [address], [place], [address], [facility] 3 11:08:45 Medications Not known to be on any medication Vitals Date Recorded Systolic And Diastolic Provider Name and Address Organization Details Last Updated DateTime 04/01/2023 128/73 mm[Hg] Jeremy Arias MD [address] [place] [address], [address], [place], [address], [facility] 04/01/2023 12:49:11 Date Recorded Systolic And Diastolic Provider Name and Address Organization Details Last Updated DateTime 04/06/2023 122/58 mm[Hg] Jeremy Arias MD [address] [place] [address], [address], [place], [address], [facility] 04/06/2023 15:56:03 Social History Question Answer Notes LastModified by Organizat ion Details LastModified Time Tobacco Smoking Status Current Every Day Smoker Jeremy Arias MD [address], [address], [place], [address], [facility] 03/30/2023 11:32:48 Do You Have An Advance Directive? [email or web address] Information not available 04/01/2023 What Is Your Code Status? Full Code [email or web address] Information not available 03/30/2023 How Much Tobacco Do You Smoke? 1 [email or web address] Information not available 03/30/2023 Sex: Unknown Functional [...] or 25mcg/0.25 mL dose 2 [facility]23 09:50:46 Influenza, adjuvanted, quadrivalent, PF 2 completed [facility] 11/09/2023 09:51:57 Pneumococcal conjugate PCV 13 2 completed Alena Cartwright [facility] 11/09/2023 09:53:31 pneumococcal polysaccharide PPV23 3 completed Alena Cartwright [facility] 02/02/2024 13:30:47 Influenza, adjuvanted, quadrivalent, PF 3 completed Alena Cartwright [facility] 02/02/2024 13:30:58 zoster recombinant 3 completed Alena Cartwright [facility] 02/02/2024 13:31:14 zoster recombinant 3 completed Alena Cartwright [facility] 02/02/2024 13:31:18 Past Encounters Encounter ID Performer Location Encounter Start Date Encounter Closed Date Diagnosis/Indication Diagnosis SNOMED-CT Code Diagnosis ICD10 Code Diagnosis IMO Codes Diagnosis Note [id number] Jeremy Arais MD [facility] on [address] [place] [address] 03/30/2023 11:00:34 04/06/2023 10:45:49 Acute kidney injury 04021429 N17.8 improved with fluidlisin opril on hold to reeval restart in 1 week Cellulitis of right lower limb 6855715810 2504957 L03.115 see above Sepsis 65011482 A41.89 see HPIsevere sepsis due to RLE [...] ulcer with edema of right lower leg 7176994754 8901762 L97.918 Eval by surgery followed outpatient at [facility] wound clinicmon tor site and follow surgery recsto f/u with wound clinic Chronic ac quired lymphedema 90721231 I89.0 supportive caremonito r need for refer to lymphedema clinic Essential hypertension 82434110 I10 hypotensiv e and with ARF lisinopril 40 mg qd was held to re-evaluat e in 1 week currently on lasix 20 mg bidmonitor bp and need to titrate Opioid dependence 343056 00 F11.20 methadone 135 mg qdto follow with clinic Chronic hepatitis C 1283 46517 B18.2 carrying dxadded to PMHunsure if treated prior Peripheral vascular disease 337053233 I73.89 maintained oncoumadin - monitor INR and titrate doserosuva statin 10 mg qdmonitor for sxvascular eval prn Chronic ob structive pulmonary disease 80873568 J41.1 carrying dxadvair 250/50 qdmonitor need for albuterol Morbid obesity 885318001 E66.01 dietary to eval Alcoholism 3509959 F10.2 0 states was drinking > 1/2 liter of whiskey per day [facility] Tobacco user 259441195 Z 72.0 was smoking 1 ppd prior to hospitaliz ationnow states has quit History of intravenous drug abuse 0207945984 3533220 F19.11 hx of heroin and oxy abuseadded to PMHnow stable on methadone [id number] Jeremy Arias MD [facility] on [address] [place] [address] 04/01/2023 12:48:46 04/06/2023 12:19:53 Advance care planning 368654204 Z71.89 MOSLT completed with patientMathew l Code Sepsis 76008882 A41.89 see HPIsevere sepsis due to RLE cellulitis Initially started on IV ancefEval by ID and changed to keflex on dischargep atient is tolerating Keflex without adverse reaction Opioid dependence 365358 00 F11.20 methadone 135 mg qdto follow with clinicof note complainin g of increased painwill refer back to methadone clinic for re-evaluat ion of dosewill allow dilaudid 2 mg q 8 prn breakthrou gh pain x 5 days History of intravenous drug abuse 4403069406 4183143 F19.11 hx of heroin and oxy abuseadded to PMHon methadones ee above [id number] Jeremy Arias MD [facility] on [address] [place] [address] 04/06/2023 15:55:29 04/13/2023 10:48:33 Sepsis 21899816 A41.89 see HPIsevere sepsis due to RLE cellulitis Initially started on IV ancefconti nue keflex to complete coursemoni tor cbc ordered for am Cellulitis of right lower limb 3260279074 1357489 L03.115 see above Acute kidney injury 1466 9001 N17.8 improved with fluidlisin opril on holdbmp ordered for amconsider restart of lisinopril if normalized Venous sta sis ulcer with edema of right lower leg 9645707050 6972078 L97.918 followed outpatient at [facility] wound clinicmoni tor site and follow surgery recsto f/u with wound clinic Essential hypertension 03541750 I10 see above with lisinopril on holdcurren tly on lasix 20 mg bidmonitor bp and need to titrate Tobacco user 857960128 Z 72.0 now off tobaccosta anuj has quit [id number] Jeremy Arias MD [facility] on [address] [place] [address] 04/12/2023 12:13:31 04/18/2023 15:22:50 Sepsis 04812986 A41.89 see HPIhas now completed Ab course with wbc WNR Acute kidney injury 1466 9001 N17.8 improved with fluidlisin opril held priornow will restartmon itor renal function Chronic ac quired lymphedema 54452006 I89.0 supportive caremonito r need for refer to lymphedema clinic Essential hypertension 00986756 I10 lisinopril 40 mg qd restartedl asix 20 mg bidmonitor bp and need to titrate Opioid dependence 293584 00 F11.20 methadone 135 mg qdfollowed by clinic Peripheral vascular disease 043651238 I73.89 maintained oncoumadin - monitor INR and titrate doseelevat ed INR with Vit K givenreche ck INR in amrosuvast atin 10 mg qdmonitor for sxvascular eval prn [id number] Jeremy Arias MD [facility] on [address] [place] [address] 04/15/2023 15:37:36 04/19/2023 09:14:39 Essential hypertension 35858427 I10 lisinopril 40 mg qdlasix 20 mg bidmonitor bp and need to titratebmp ordered for 04/19 Acute kidney injury 1466 9001 N17.8 improved with fluidlisin opril restartedr echeck renal function Venous sta sis ulcer with edema of right lower leg 0053870462 7413463 L97.918 followed outpatient at [facility] wound cliniccont inues to improveupd ate surgery with concerns Opioid dependence 816753 00 F11.20 methadone 135 mg qdto follow with clinic Peripheral vascular disease 517351392 I73.89 maintained oncoumadin - monitor INR and titrate doserosuva statin 10 mg qdrecheck INR tuesday - order in place [id number] [facility] [address] [place] [address] 04/18/2023 08:08:35 04/20/2023 10:57:18 Essential hypertension 97761006 I10 lisinopril 40 mg qdlasix 20 mg bidf/u pcp Acute kidney injury 1466 9001 N17.8 improved with fluidslisi nopril restartedc reat 0.9 on 04/29lab pending today, no results available at this timef/u with pcp Venous sta sis ulcer with edema of right lower leg 9120377022 7827509 L97.918 followed outpatient at [facility] wound clinicimpr umang Opioid dependence 895335 00 F11.20 pt received his last dose of methadone 135 mg qd this morningf/u with methadone clinic Peripheral vascular disease 872738068 I73.89 INR pending today, will notify nurse when results available and they will call pt with results and dose recommenda tioncoumad in 5 mg qd - current dose at this timerosuva statin 10 mg qdf/u with pcp Sepsis 67882442 A41.89 completed keflexWBC normal on 04/08/23pt is currently has order for dilaudid 2 mg q 8 hrs prn though nurse notes that he had been taking it every 8 hours. appears to have been started on dilaudid by [facility] while in pt. pt also with hx of opioid dependence on methadone. will allow pt #21 tabs of dilaudid to take home.f/u with pcp Chronic ac quired lymphedema 84259794 I89.0 supportive caref/u with pcp Health Concerns Section Related Observation LastModified by Organization Detai ls LastModified Time None Recorded Concern Status LastModified by Organization Details LastModified Time None Recorded Advance Directives Directive Y: Payers Insurance Date Sequence Insurance Name Policy Number Policy Bull Covered Member ID Bull Member ID Guarantor Name 04/13/2024 1 [facility] - DOS ON OR AFTER 2023 - MEDICARE ADVANTAGE [place] (MEDICARE REPLACEMENT/ADV ANTAGE - PPO) Jose Naidu [id number] Jose Naidu Notes Date Note Type Note [...] discharge. Eval by surgery followed outpatient at [facility] wound clinic. ARF improved with fluids. Patient was hypotensive and with ARF lisinopril was held to re-evaluate in 1 week. Currently patient complaining of poor pain control Jeremy Arias MD [address], [address], [place], [address], [facility] 04/01/2023 12:56:53 04/06/2023 text/html Patient is [...] discharge. Eval by surgery followed outpatient at [facility] wound clinic. ARF improved with fluids. Patient was hypotensive and with ARF lisinopril was held to re-evaluate in 1 week. Of note patient labs not drawn at facility to this point Jeremy Arias MD [address], [address], [place], [address], [facility] 04/06/2023 16:00:26 04/12/2023 text/html Patient is [...] discharge. Eval by surgery followed outpatient at [facility] wound clinic. ARF improved with fluids. Patient has now completed keflex. INR elevated yesterday required Vit K. Jeremy Arias MD [address], [address], [place], [address], [facility] 04/12/2023 12:24:30 04/15/2023 text/html Patient is a [...] discharge. Eval by surgery followed outpatient at [facility] wound clinic. Patient has completed Ab. Continues to improve now ambulating independent without walker Jeremy Arias MD [address] [facility] [address], [place], [address], [facility] 04/15/2023 15:43:26 04/18/2023 text/html 68 yo male [...] discharge. Eval by surgery followed outpatient at [facility] wound clinic. Patient has completed Ab. Continues to improve now ambulating independent without walker EVELYN Faustin [address], [address], [place], [address], [facility] [employer] 04/18/2023 10:59:00
--- OUTSIDE RECORDS SUMMARY | 2025-09-05 17:03 | XMS_ITS | Data Portability ---
Author Organization [facility] [employer] [facility], [facility] Address [address] [place] [address] Care Team Providers Care Firer Automatic Stoker Name Role Phone [facility] Referring Provider Assessment No assessment recorded. Plan of Treatment Reminders Order Date Submit Date Provider Last Modified By Organization Details Last Modified Time Details Appointments None recorded. Lab BMP, serum or plasma [address], [address] 3 19:02:32 hemoglobin + hematocrit, blood [address], [address] 3 19:02:01 Referral None recorded. Procedures None recorded. Surgeries None recorded. Imaging None recorded. Medication Orders Solu-Medrol (PF) 125 mg/2 mL solution for injection 2022 023 atilhou Not available 3 17:00:50 Patient TargetsNo targets recorded. Patient InstructionsNo [...] Available Not Available No t Available omega 2-kxo-zif-fis h oil 1,000 mg (120 mg-180 mg) capsule TAKE 1 CAPSULE BY MOUTH EVERY DAY FOR 90 DAYS active Not Available Not Available No t Available Wixela Inhub 250 mcg-50 mcg/dose powder for inhalation INHALE 1 PUFF BY MOUTH TWICE A DAY FOR 30 DAYS active Not Available Not Available No t Available Smart Heart [place]-3 115 mg-172 mg-1,000 mg capsule,delay ed release TAKE 1 CAPSULE BY MOUTH EVERY DAY FOR 90 DAYS active Not Available Not Available No t Available Vitals Date Recorded Oxygen saturation Oxygen saturation in Arterial blood by Pulse oximetry Respiratory rate Heart rate Body temperature Body weight Systolic And Diastolic Provider Name and Address Organization Details Last Updated DateTime 3 97 % 97 % 16 /min 89 /min 100.5 [degF] 700909. 56 g 152/88 mm[Hg] Not Available [facility] - production 3 16:35:33 Social History None recorded. Functional Status None recorded. Mental Status None recorded. Family History Nothing Reported. Medical History No medical history recorded. Past Encounters Encounter ID Performer Location Encounter Start Date Encounter Closed Date Diagnosis/Indication Diagnosis SNOMED-CT Code Diagnosis ICD10 Code Diagnosis IMO Codes Diagnosis Note [id number] Sushma Chowdhury MD Main - [facility] [address] [place] [address] 01/03/2023 16:35:25 01/05/2023 12:30:31 Adverse reaction to drug 57804178 T50.905A As noted, we were called to see this patient regarding concerns of rash. Evaluation in the field was performed by my manager drug colleague, as noted above, I provided real-time direction and supervisio n for this visit. The evaluation revealed 67y M with PMH HTN, COPD and rapidly progressiv e rash iso new medication , verapimil, raising concern for drug rash such as erythroder ma or SJS/TEN. No mucosal involvemen t, but patient does have low-grade fever of 100.5. Stable vital signs. Strongly encouraged patient to proceed to ER for work up and observatio n but he has a commitment this evening and would not reveal any additional informatio n. Explained by concern, if developing SJS or TEN, that this may continue to progress and lead to skin sloughing if not bacteremia and associated sequelae such as sepsis. He reports that he will reassess tomorrow. He is open to IV steroids and baseline blood work this evening as well as repeat visit by [facility] tomorrow. Again, provided patient with my clinical impression that he needs hospital monitoring but declines. Impression :acute drug reaction, possible developing SJS or TEN. Plan:- 80mg IV solumedrol now- H/H and BMP- repeat [facility] visit tomorrow- stop verapimil immediatel y. Resume prior Rx for lisinopril tomorrow. Primary care, considerfo llow up at next available to review blood pressure management and status of rash. Dispositio n:We discussed the situation and I recommende d referral to the emergency department . This was based on the severity of skin rash with a systemic sign (fever). However, the patint declined. Counseled on potential for rapid worsening of rash, skin sloughing, and shock in the setting of volume loss or bacterial infection. Anayeli will receive f/u visit from [facility] tomorrow. Health Concerns Section Related Observation LastModified by Organization Detai ls LastModified Time None Recorded Concern Status LastModified by Organization Details LastModified Time None Recorded Advance Directives Directive None Recorded Payers Insurance Date Sequence Insurance Name Policy Number Policy Ubll Covered Member ID Bull Member ID Guarantor Name 04/11/2024 1 [facility] - DOS PRIOR TO 2023 - DUAL ELIGIBLE (MEDICARE REPLACEMENT/ADV ANTAGE - HMO) Jose Naidu [id number] Jose Naidu 04/11/2024 1 [facility] - DOS ON OR AFTER 2023 - DUAL ELIGIBLE - HALF-WAY OPTIONS AND ONE CARE (MEDICARE REPLACEMENT/ADV ANTAGE - HMO) Jose Naidu [id number] Jose Naidu Notes Date Note Type Note [...] CRC RN DID NOT NEED FURTHER INFO [facility] [place]:worsening rash, 12/20 switched from lisinopril to verapamil. not on any other medications. Sushma Chowdhury MD [address] [facility], [place], [address], [facility] 01/03/2023 17:11:17
== END 2025-09-05 14:21 | disposition home or self-care (01) ==
LOC: HO.HKAS 14:03
PROVIDERS: PCP Internal Medicine; Visit Provider Internal Medicine Nephrology
DX: I10 Essential (primary) hypertension (principal); N18.32 Chronic kidney disease, stage 3b
CPT/HCPCS: 99214

== ENCOUNTER → 2025-09-05 14:02 | Outpatient (BNVA) | payer OTHER, SELFPAY | PROVIDERS: PCP Internal Medicine; Visit Provider Internal Medicine Nephrology | DX: I12.9 Hypertensive chronic kidney disease with stage 1 through stage 4 chronic kidney disease, or unspecified chronic kidney disease (principal); N18.32 Chronic kidney disease, stage 3b; F17.210 Nicotine dependence, cigarettes, uncomplicated | CPT/HCPCS: 99212 ==

== ENCOUNTER 2025-09-27 11:25 | Outpatient (AMB) | payer OTHER, SELFPAY ==
[2025-09-27 11:28] VITALS: BP 106/54; PULSE 86; O2SAT 95; BMI 38.7
--- NOTE | 2025-09-27 11:28 | MHC.OFFVIS ---
Vital Signs 09/27/25 11:28 Height 5 ft 9 in Weight 262 lb 2 oz BMI 38.7 BP 106/54 L Blood Pressure Location Lt brachial Position Sitting Pulse 86 Pulse Source Pulse Oximeter Pulse Oximetry (%) 95 Oxygen Delivery Method Room Air Intake Visit Reasons: abnormal sputum Allergies Penicillins Allergy (Severe, Verified 09/27/25 11:34) COMA ibuprofen Allergy (Intermediate, Verified 09/27/25 11:34) HIVES/STOMACHE UPSET tramadol Allergy (Verified 09/27/25 11:34) Unknown HPI HPI abnormal sputum: Details: Jose is a pleasant 70 year old male, current 50+ pack year history, with underlying COPD, KEILA unable to tolerate CPAP h/o 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 He was initially referred by PCP for pulmonary evaluation for chronic cough. He reports ongoing cough over the summer treated with azithromycin with no change in symptoms, continuing with significant sputum production. Recently sputum color changed from yellow to green with worsening dyspnea prompting an ED visit. He was admitted to [facility] 07/09-07/12 admitted for sepsis secondary to acute hypoxemic respiratory failure in the setting of COPD and CAP. Patient was started on IV antibiotic, nebs, steroids, blood cultures negative, chest x-ray revealed patchy opacities in the right lower hemithorax. Patient was initially started on Levaquin with significant improvement, increased sats in the 90s and asymptomatic. He was ultimately discharged on Levaquin and prednisone, without the need for supplemental oxygen. At the last visit 6MWT performed and patient ddid not require supplemental oxygen.Since discharge he reports 80%+ improvement in symptoms, cough significantly improved mostly dry with little clear sputum production. He has been using Wixela with moderate effect, continues with dyspnea, intermittent wheezing and productive cough with clear sputum. He denies any urgent care visits or hospitalizations related to respiratory distress since the last visit. He has an upcoming PFT scheduled 10/17/25 at [facility]. [facility] Medical History (Updated 07/20/25 @ 00:02 by Background Daemon) Inguinal hernia COPD (chronic obstructive pulmonary disease) Venous stasis ulcer of lower extremity Chronic venous insufficiency Peripheral vascular disease Bipolar disorder DDD (degenerative disc disease), lumbar Swelling of thigh Open wound of right thigh Venous ulcer of right leg Cellulitis Hyperlipidemia Hypertensive cardiovascular disease Obesity hypoventilation syndrome Morbid obesity due to excess calories Chronic venous stasis dermatitis of both lower extremities Hepatitis C Sleep apnea Narcotic addiction Osteoarthritis Pulmonary embolism DVT (deep venous thrombosis) Chronic back pain Surgical History Status post endovenous radiofrequency ablation of saphenous vein History of surgery on lower extremity (06/10/23) History of incision and drainage History of repair of cleft lip History of arthroscopy of both knees Social History Household Members: Other Housing: House Do you presently have visiting nurse or other home services: Yes ([facility]) Alcohol intake: current Alcohol intake frequency: 3 or more drinks per day Alcohol type: hard liquor Comment: pt to sss Patient Tobacco Use Status: Current everyday Tobacco user Tobacco use type: Cigarette Cigarette Packs Per Day: 0.5 Cigarettes Per Day: 11 Years Smoked: 30 e-Cigarette/Vaping Use: Currently Using Second Hand Smoke Exposure: No Substance Use Type: Marijuana Advance Directives Date on File: 03/30/23 service: No Current occupational status: disabled Review of Systems Const Denies chills, Denies excessive sweating, Denies fever(s), Denies headache(s) and Denies night sweats Eyes Denies dry eyes, Denies irritation and Denies itchy eyes ENT Reports Normal hearing present, Denies headache(s), Denies nasal congestion, Denies nasal discharge, Denies post nasal drip and Denies sore throat Card Denies chest pain, Denies chest pain at rest, Denies chest pain with activity, Denies claudication, Denies leg edema, Reports dyspnea on exertion, Denies orthopnea and Denies paroxysmal nocturnal dyspnea Resp Denies chest congestion, Reports cough, Denies hemoptysis, Denies excessive phlegm production, Denies pain on inspiration, Denies pain with cough, Reports dyspnea on exertion, Denies stridor and Reports wheezing Musc Denies myalgias Neuro Reports Normal hearing present and Denies headache(s) Endo Denies excessive sweating Collins/Lymph Denies lymphadenopathy Aller/Immun Denies itchy eyes, Denies seasonal rhinorrhea and Reports wheezing Physical Exam Vital Signs: Last Vital Signs Pulse 86 09/27/25 11:28 BP 106/54 L 09/27/25 11:28 Pulse Ox 95 09/27/25 11:28 Oxygen Delivery Method Room Air 09/27/25 11:28 BMI result Body Mass Index 38.7 Const General: cooperative, healthy appearing, comfortable, no acute distress, well developed and alert Nutritional Appearance: obese Orientation/consciousness: patient oriented x3 Limitations: no limitations HEENT Head: Yes normal to inspection, Yes normocephalic and Yes atraumatic Ears: hearing grossly normal bilaterally and external ears normal Eyes General: appearance normal, both eyes and all related structures Eyelids: Yes eyelids normal Sclerae: sclerae normal EOM: EOMs intact bilaterally Neck Neck: Yes normal visual inspection and Yes no lymphadenopathy Lymphatic: no lymphadenopathy noted Chest Chest palpation & inspection: normal inspection of the chest Resp Effort & Inspection: normal respiratory effort, able to speak in complete sentences, no audible wheezes, no cough, no stridor, not tachypneic, no tripod positioning and no use of accessory muscles Auscultation: diminished lung sounds Cardio Jugular venous distension: no JVD Rate: regular rate Rhythm: regular rhythm Skin Other: warm, dry General skin exam: no rashes or lesions noted Neuro General: patient oriented x3 Cranial nerves: Yes Normal hearing present Cognition (Neuro): normal cognition Gait exam (Neuro): Normal gait present Extrem General: Yes normal to inspection, Yes capillary refill normal, Yes no clubbing, cyanosis or edema and Yes no pedal edema Psych Appearance: grossly normal and well kempt Speech and movement: Normal speech and movement present and Clear speech present Affect: normal affect Attitude: cooperative Thought process: Normal thought process present Thought content: Normal thought content present Insight: Good insight present (Psych) Judgement: Good judgement present (Psych) Assessment & Plan Assessment & Plan (1) COPD (chronic obstructive pulmonary disease): Code(s): J44.9 - Chronic obstructive pulmonary disease, unspecified Category: Medical (2) History of recent pneumonia: Code(s): Z87.01 - Personal history of pneumonia (recurrent) Category: Medical (3) Nicotine dependence, cigarettes, uncomplicated: Code(s): F17.210 - Nicotine dependence, cigarettes, uncomplicated Category: Medical (4) Multiple pulmonary nodules: Code(s): R91.8 - Other nonspecific abnormal finding of lung field Category: Medical Plan Jose reports suboptimal control with Wixela continues with dyspnea, wheezing and productive cough with clear sputum, will switch to Trelegy. At the last visit he was sent for CXR to assess for resolution of PNA however this was never performed. Encouraged patient to obtain. He reports h/o KEILA previously unable to tolerate CPAP therapy and again discussed repeating sleep study however he is not interested. He reports personal h/o DVT/PE and strong family history with no prior evaluation from hematology, declined further evaluation. All questions were answered and patient is in agreement of plan. Will follow up to review results of PFT and response to Trelegy or sooner if needed. Medications: New xspaklulvok-mwmmgxrcf-znfouhjh 200-62.5-25 mcg (Trelegy Ellipta) 1 inh inhalation DAILY 60 ea 3RF Coding Level of Care Code Est Pt Level 4 (55701) Diagnoses COPD (chronic obstructive pulmonary disease) J44.9 History of recent pneumonia Z87.01 Nicotine dependence, cigarettes, uncomplicated F17.210 Multiple pulmonary nodules R91.8
--- OUTSIDE RECORDS SUMMARY | 2025-09-27 12:15 | XMS_ITS | Data Portability ---
Author Organization [facility], Main Office Address [address] [place] [address] Care Team Providers Care Gps Field Data Collector Name Role Phone [facility] OTHER MYRNA MARTINS Primary Care Provider Assessment Encounter Date Assessment Date Assessment LastModified by Organization Details LastModified Time 04/18/2023 04/18/2023 04/08/23 wbc 6.5, hgb 10.4, plt 302, na 134, k 3.6, creat 0.9 [email or web address] Not available 04/18/2023 10:43:36 Plan of Treatment [...] and Address Organization Details Recorded Time Sepsis 41805158 Active 2022 Jeremy Arias MD [address] [place] [address], [address], [place], [address], [facility] [employer] 3 11:09:05 Venous stasis ulcer with edema of right lower leg 4454803381412 9106 Active 2022 Jeremy Arias MD [address], [address], [place], [address], [facility] [employer] 3 11:09:19 Chronic acquired lymphedema 33470266 Active 2022 Jeremy Arias MD [address], [address], [place], [address], [place] [facility] 3 11:09:34 Essential hypertensio n 52792403 Active 2022 Jeremy Arias MD [address], [address], [place], [address], [facility] 3 11:10:28 Opioid dependence 61205257 Active 2022 Jeremy Arias MD [address], [address], [place], [address], [facility] 3 11:10:38 Chronic hepatitis C 797406475 Active 2022 Jeremy Arias MD [address], [address], [place], [address], [facility] 3 11:10:47 Peripheral vascular disease 047132901 Active 2022 Jeremy Arias MD [address], [address], [place], [address], [facility] 3 11:10:52 Chronic obstructive pulmonary disease 81095314 Active 2022 Jeremy Arias MD [address], [address], [place], [address], [facility] 3 11:10:56 Morbid obesity 819477740 Active 2022 Jeremy Arias MD [address], [address], [place], [address], [facility] 3 11:11:04 Alcoholism 7013558 Active 2022 Jeremy Arias MD [address], [address], [place], [address], [facility] 3 11:30:31 Tobacco user 495058384 Active 2022 Jeremy Arias MD [address], [address], [place], [address], [facility] 3 11:30:37 History of intravenous drug abuse 7961912420169 9103 Active 2022 Jeremy Arias MD [address], [address], [place], [address], [employer] [facility] 3 11:30:43 Problem Notes None recorded. Medical Equipment None Reported. Allergies Allergen ID Allergen Name Allergen Category Reaction Reaction Severity Criticality Documentation Date Start Date Code Code System Note Provider Name and Address Organization Details Recorded Time 30753 Product containin g penicilli n (product) medicatio n anaphylax is Not available Not available 03/30/2023 08158 8001 SNOMED Jeremy Arias MD [address] [place] [address], [address], [place], [address], [facility] 3 11:08:33 55074 ibuprofen medicatio n Not available Not available Not available 03/30/2023 5640 RxNorm Jeremy Arias MD [address] [place] [address], [address], [place], [address], [facility] 3 11:08:40 23131 tramadol medicatio n Not available Not available Not available 03/30/2023 52200 RxNorm Jeremy Arias MD [address], [address], [place], [address], [facility] 3 11:08:45 Medications Not known to be on any medication Vitals Date Recorded Systolic And Diastolic Provider Name and Address Organization Details Last Updated DateTime 04/01/2023 128/73 mm[Hg] Jeremy Arias MD [address] [place] [address], [address], [place], [address], [facility] 04/01/2023 12:49:11 Date Recorded Systolic And Diastolic Provider Name and Address Organization Details Last Updated DateTime 04/06/2023 122/58 mm[Hg] Jeremy Arias MD [address] [place] [address], [address], [place], [address], [facility] 04/06/2023 15:56:03 Social History Question Answer Notes LastModified by Organizat ion Details LastModified Time Tobacco Smoking Status Current Every Day Smoker Jeremy Arias MD [address], [address], [place], [address], [employer] 03/30/2023 11:32:48 Do You Have An Advance Directive? [email or web address] Information not available 04/01/2023 What Is Your Code Status? Full Code [email or web address] Information not available 03/30/2023 How Much Tobacco Do You Smoke? [email or web address] Information not available 03/30/2023 Sex: Unknown Functional [...] or 25mcg/0.25 mL dose 2 [facility] 09:50:46 Influenza, adjuvanted, quadrivalent, PF 2 [facility]/09/2023 09:51:57 Pneumococcal conjugate PCV 13 2 completed Alena Cartwright [facility] 11/09/2023 09:53:31 pneumococcal polysaccharide PPV23 3 completed Alena Cartwright [facility] 02/02/2024 13:30:47 Influenza, adjuvanted, quadrivalent, PF 3 completed Alena Cartwright [facility] 02/02/2024 13:30:58 zoster recombinant 3 completed Alena Cartwright [facility] 02/02/2024 13:31:14 zoster recombinant 3 completed Alena Cartwright [facility] 02/02/2024 13:31:18 Past Encounters Encounter ID Performer Location Encounter Start Date Encounter Closed Date Diagnosis/Indication Diagnosis SNOMED-CT Code Diagnosis ICD10 Code Diagnosis IMO Codes Diagnosis Note [id number] Jeremy Arias MD [facility] on [address] [place] [address] 03/30/2023 11:00:34 04/06/2023 10:45:49 Acute kidney injury 21911701 N17.8 improved with fluidlisin opril on hold to reeval restart in 1 week Cellulitis of right lower limb 1356974589 2548832 L03.115 see above Sepsis 60517945 A41.89 see HPIsevere sepsis due to RLE [...] ulcer with edema of right lower leg 7996715505 3599021 L97.918 Eval by surgery followed outpatient at [facility] wound clinicmon tor site and follow surgery recsto f/u with wound clinic Chronic ac quired lymphedema 36822293 I89.0 supportive caremonito r need for refer to lymphedema clinic Essential hypertension 41264440 I10 hypotensiv e and with ARF lisinopril 40 mg qd was held to re-evaluat e in 1 week currently on lasix 20 mg bidmonitor bp and need to titrate Opioid dependence 252392 00 F11.20 methadone 135 mg qdto follow with clinic Chronic hepatitis C 1283 41779 B18.2 carrying dxadded to PMHunsure if treated prior Peripheral vascular disease 109758535 I73.89 maintained oncoumadin - monitor INR and titrate doserosuva statin 10 mg qdmonitor for sxvascular eval prn Chronic ob structive pulmonary disease 74813510 J41.1 carrying dxadvair 250/50 qdmonitor need for albuterol Morbid obesity 865341269 E66.01 dietary to eval Alcoholism 1112219 F10.2 0 states was drinking > 1/2 liter of whiskey per day [facility] involvedSU D therapy Tobacco user 343399658 Z 72.0 was smoking 1 ppd prior to hospitaliz ationnow states has quit History of intravenous drug abuse 8465405726 3288445 F19.11 hx of heroin and oxy abuseadded to PMHnow stable on methadone [id number] Jeremy Arias MD [facility] on [address] [place] [address] 04/01/2023 12:48:46 04/06/2023 12:19:53 Advance care planning 387469972 Z71.89 MOSLT completed with patientMathew l Code Sepsis 47353898 A41.89 see HPIsevere sepsis due to RLE cellulitis Initially started on IV ancefEval by ID and changed to keflex on dischargep atient is tolerating Keflex without adverse reaction Opioid dependence 861703 00 F11.20 methadone 135 mg qdto follow with clinicof note complainin g of increased painwill refer back to methadone clinic for re-evaluat ion of dosewill allow dilaudid 2 mg q 8 prn breakthrou gh pain x 5 days History of intravenous drug abuse 2080423974 7688992 F19.11 hx of heroin and oxy abuseadded to PMHon methadones ee above [id number] Jeremy Arias MD [facility] on [address] [place] [id number] 04/06/2023 15:55:29 04/13/2023 10:48:33 Sepsis 97168647 A41.89 see HPIsevere sepsis due to RLE cellulitis Initially started on IV ancefconti nue keflex to complete coursemoni tor cbc ordered for am Cellulitis of right lower limb 5450566967 9697673 L03.115 see above Acute kidney injury 1466 9001 N17.8 improved with fluidlisin opril on holdbmp ordered for amconsider restart of lisinopril if normalized Venous sta sis ulcer with edema of right lower leg 8120075308 4653395 L97.918 followed outpatient at [facility] wound clinicmoni tor site and follow surgery recsto f/u with wound clinic Essential hypertension 86010886 I10 see above with lisinopril on holdcurren tly on lasix 20 mg bidmonitor bp and need to titrate Tobacco user 194812544 Z 72.0 now off tobaccosta anuj has quit [id number] Jeremy Arias MD [facility] on [address] [place] [id number] 04/12/2023 12:13:31 04/18/2023 15:22:50 Sepsis 73850592 A41.89 see HPIhas now completed Ab course with wbc WNR Acute kidney injury 1466 9001 N17.8 improved with fluidlisin opril held priornow will restartmon itor renal function Chronic ac quired lymphedema 62898153 I89.0 supportive caremonito r need for refer to lymphedema clinic Essential hypertension 96209520 I10 lisinopril 40 mg qd restartedl asix 20 mg bidmonitor bp and need to titrate Opioid dependence 197498 00 F11.20 methadone 135 mg qdfollowed by clinic Peripheral vascular disease 939138579 I73.89 maintained oncoumadin - monitor INR and titrate doseelevat ed INR with Vit K givenreche ck INR in amrosuvast atin 10 mg qdmonitor for sxvascular eval prn [id number] Jeremy Arias MD [facility] on [address] [place] [address] 04/15/2023 15:37:36 04/19/2023 09:14:39 Essential hypertension 31228120 I10 lisinopril 40 mg qdlasix 20 mg bidmonitor bp and need to titratebmp ordered for 04/19 Acute kidney injury 1466 9001 N17.8 improved with fluidlisin opril restartedr echeck renal function Venous sta sis ulcer with edema of right lower leg 2283642904 5498716 L97.918 followed outpatient at [facility] wound cliniccont inues to improveupd ate surgery with concerns Opioid dependence 568168 00 F11.20 methadone 135 mg qdto follow with clinic Peripheral vascular disease 664132305 I73.89 maintained oncoumadin - monitor INR and titrate doserosuva statin 10 mg qdrecheck INR tuesday - order in place [id number] [facility] [address] [place] [phone] 04/18/2023 08:08:35 04/20/2023 10:57:18 Essential hypertension 01654282 I10 lisinopril 40 mg qdlasix 20 mg bidf/u pcp Acute kidney injury 1466 9001 N17.8 improved with fluidslisi nopril restartedc reat 0.9 on 04/29lab pending today, no results available at this timef/u with pcp Venous sta sis ulcer with edema of right lower leg 6639849887 8649365 L97.918 followed outpatient at [facility] wound clinicimpr umang Opioid dependence 811231 00 F11.20 pt received his last dose of methadone 135 mg qd this morningf/u with methadone clinic Peripheral vascular disease 539713682 I73.89 INR pending today, will notify nurse when results available and they will call pt with results and dose recommenda tioncoumad in 5 mg qd - current dose at this timerosuva statin 10 mg qdf/u with pcp Sepsis 10239356 A41.89 completed keflexWBC normal on 04/08/23pt is currently has order for dilaudid 2 mg q 8 hrs prn though nurse notes that he had been taking it every 8 hours. appears to have been started on dilaudid by [facility] while in pt. pt also with hx of opioid dependence on methadone. will allow pt #21 tabs of dilaudid to take home.f/u with pcp Chronic ac quired lymphedema 72498964 I89.0 supportive caref/u with pcp Health Concerns Section Related Observation LastModified by Organization Detai ls LastModified Time None Recorded Concern Status LastModified by Organization Details LastModified Time None Recorded Advance Directives Directive Y: Payers Insurance Date Sequence Insurance Name Policy Number Policy Bull Covered Member ID Bull Member ID Guarantor Name 04/13/2024 1 [facility] - DOS ON OR AFTER 2023 - MEDICARE ADVANTAGE [place] (MEDICARE REPLACEMENT/ADV ANTAGE - PPO) Jose Naidu [id number] Jose Naidu Notes Date Note Type Note [...] discharge. Eval by surgery followed outpatient at [facility] wound clinic. ARF improved with fluids. Patient was hypotensive and with ARF lisinopril was held to re-evaluate in 1 week. Currently patient complaining of poor pain control Jeremy Arias MD [address], [address], [place], [address], [facility] [employer] 04/01/2023 12:56:53 04/06/2023 text/html Patient is [...] discharge. Eval by surgery followed outpatient at [facility] wound clinic. ARF improved with fluids. Patient was hypotensive and with ARF lisinopril was held to re-evaluate in 1 week. Of note patient labs not drawn at facility to this point Jeremy Arias MD [address], [address], [place], [address], [facility] [employer] [facility] 04/06/2023 16:00:26 04/12/2023 text/html Patient is [...] discharge. Eval by surgery followed outpatient at [facility] wound clinic. ARF improved with fluids. Patient has now completed keflex. INR elevated yesterday required Vit K. Jeremy Arias MD [address], [address], [place], [address], [facility] [employer] [facility] 04/12/2023 12:24:30 04/15/2023 text/html Patient is [...] discharge. Eval by surgery followed outpatient at [facility] wound clinic. Patient has completed Ab. Continues to improve now ambulating independent without walker Jeremy Arias MD [address], [place], [address], [facility] [employer] 04/15/2023 15:43:26 04/18/2023 text/html 68 yo male [...] discharge. Eval by surgery followed outpatient at [facility] wound clinic. Patient has completed Ab. Continues to improve now ambulating independent without walker EVELYN Faustin [address], [address], [place], [address], [facility] [employer] 04/18/2023 10:59:00
--- OUTSIDE RECORDS SUMMARY | 2025-09-27 12:15 | XMS_ITS | Data Portability ---
Author Organization [facility], [facility] Address [address] [place] [id number] Care Team Providers Care Manager Production Name Role Phone [facility] Referring Provider Assessment No assessment recorded. Plan of Treatment Reminders Order Date Submit Date Provider Last Modified By Organization Details Last Modified Time Details Appointments None recorded. Lab BMP, serum or plasma [address], [id number] 3 19:02:32 hemoglobin + hematocrit, blood [address], [id number] 3 19:02:01 Referral None recorded. Procedures None [...] Available Not Available No t Available omega 4-agf-jbz-fis h oil 1,000 mg (120 mg-180 mg) capsule TAKE 1 CAPSULE BY MOUTH EVERY DAY FOR 90 DAYS active Not Available Not Available No t Available [employer] Inhub 250 mcg-50 mcg/dose powder for inhalation INHALE 1 PUFF BY MOUTH TWICE A DAY FOR 30 DAYS active Not Available Not Available No t Available [facility] [place]-3 115 mg-172 mg-1,000 mg capsule,delay ed release TAKE 1 CAPSULE BY MOUTH EVERY DAY FOR 90 DAYS active Not Available Not Available No t Available Vitals Date Recorded Oxygen saturation Respiratory rate Heart rate Body temperature Body weight Systolic And Diastolic Provider Name and Address Organization Details Last Updated DateTime 3 97 % 16 /min 89 /min 100.5 [degF] 998751. 56 g 152/88 mm[Hg] Not Available [facility] - production 3 16:35:33 Social History None recorded. Functional Status None recorded. Mental Status None recorded. Family History Nothing Reported. Medical History No medical history recorded. Past Encounters Encounter ID Performer Location Encounter Start Date Encounter Closed Date Diagnosis/Indication Diagnosis SNOMED-CT Code Diagnosis ICD10 Code Diagnosis IMO Codes Diagnosis Note [id number] Sushma Chowdhury MD Main - [facility] [address] [place] [address] 01/03/2023 16:35:25 01/05/2023 12:30:31 Adverse reaction to drug [id number] T50.905A As noted, we were called to see this patient regarding concerns of rash. 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 Again, provided patient with my clinical impression that he needs hospital monitoring but declines. Impression :acute drug reaction, possible developing SJS or TEN. Plan:- 80mg IV solumedrol now- H/H and BMP- [facility] stop verapimil immediatel y. Resume [...] setting of volume loss or bacterial infection. Patinet will receive f/u visit from [facility] tomorrow. Health Concerns Section Related Observation LastModified by Organization Detai ls LastModified Time None Recorded Concern Status LastModified by Organization Details LastModified Time None Recorded Advance Directives Directive None Recorded Payers Insurance Date Sequence Insurance Name Policy Number Policy Bull Covered Member ID Bull Member ID Guarantor Name 04/11/2024 1 [facility] - DOS PRIOR TO 2023 - DUAL ELIGIBLE (MEDICARE REPLACEMENT/ADV ANTAGE - HMO) Jose Naidu [id number] Jose Naidu 04/11/2024 1 [facility] - DOS ON OR AFTER 2023 - DUAL ELIGIBLE - [employer] OPTIONS AND ONE CARE (MEDICARE REPLACEMENT/ADV ANTAGE - HMO) Jose Naidu [id number] Jose Naidu Notes Date Note Type Note [...] CRC RN DID NOT NEED FURTHER INFO [facility] HPI:worsening rash, 12/20 switched from lisinopril to verapamil. not on any other medications. Sushma Chowdhury MD [address] [facility],[address], [place], [phone], [facility] - [employer] 01/03/2023 17:11:17
== END 2025-09-27 11:48 | disposition home or self-care (01) ==
LOC: HO.HPSW 11:25
PROVIDERS: PCP Internal Medicine; Visit Provider Nurse Practitioner Family
DX: J44.9 Chronic obstructive pulmonary disease, unspecified (principal); Z87.01 Personal history of pneumonia (recurrent); F17.210 Nicotine dependence, cigarettes, uncomplicated; R91.8 Other nonspecific abnormal finding of lung field
CPT/HCPCS: 99214

== ENCOUNTER → 2025-09-27 11:25 | Outpatient (BNVA) | payer OTHER, SELFPAY | PROVIDERS: PCP Internal Medicine; Visit Provider Nurse Practitioner Family | DX: J44.9 Chronic obstructive pulmonary disease, unspecified (principal); R91.8 Other nonspecific abnormal finding of lung field; Z87.01 Personal history of pneumonia (recurrent); F17.210 Nicotine dependence, cigarettes, uncomplicated | CPT/HCPCS: 99212 ==

== ENCOUNTER 2025-10-17 07:36 | Outpatient (REF) | payer OTHER, SELFPAY ==
--- NOTE | 2025-10-17 07:56 | PFT_ITS ---
Spirometry [] Lung Volumes [] Diffusion Capacity [] Methacholine Challenge [] Flow Volume Loops [] MVV [] MIP/MEP(Max inspiratory pressure/Max expiratory pressure) [] 6 Minute Walk Test [] ABG [] Interpretation [] MTDD
== END 2025-10-17 07:37 | disposition home or self-care (01) ==
LOC: HO.RESP 07:36
PROVIDERS: PCP Internal Medicine; Visit Provider Nurse Practitioner Family
DX: J44.9 Chronic obstructive pulmonary disease, unspecified (principal); F17.200 Nicotine dependence, unspecified, uncomplicated
CPT/HCPCS: 94010

== ENCOUNTER → 2025-10-17 07:56 | Outpatient (BNV) | payer OTHER, SELFPAY | PROVIDERS: PCP Internal Medicine; Visit Provider Internal Medicine Pulmonary Disease | DX: J44.9 Chronic obstructive pulmonary disease, unspecified (principal) | CPT/HCPCS: 94060; 94727; 94729 ==